=== PATIENT | male | born 1985 | race Caucasian/White ===

== ENCOUNTER 2019-05-30 15:45 | Emergency (ER) | payer SELFPAY ==
--- NOTE | ~2019-05-30 | XR_ITS ---
XR chest 1V portable DATE: 05/30/2019 16:34 INDICATION: Shortness of breath for one week TECHNIQUE: Portable AP chest on 05/30/2019 at 1630 hours COMPARISON: 09/10/2017 PA and lateral chest FINDINGS: Normal heart size. No hilar or mediastinal enlargement. No pulmonary infiltrate or consolid ation, pleural effusion or pulmonary vascular congestion or pneumothorax. There is some sclerosis associated with probable old right first rib fracture overlying the right lat eral apical area. IMPRESSION: No active cardiopulmonary disease Probable old right healed first rib fracture Reviewed, dictated and finalized at location A.
[2019-05-30 15:49] VITALS: BP 126/83; PULSE 82; RESP 17; TEMP 37.1; O2SAT 98
--- NOTE | 2019-05-30 16:14 | ED.GENADULT ---
HPI - General Adult General Chief complaint: Shortness of Breath/Dyspnea Stated complaint: N/V/D [id number] Time Seen by Provider: 05/30/19 15:59 Source: patient Mode of arrival: ambulatory Limitations: no limitations History of Present Illness HPI narrative: Patient is a 33-year-old male who presents to emergency department for evaluation of diarrhea and vomiting off and on for the last month patient notes that he has some rhinorrhea congestion denies any cough does note some dyspnea denies rectal bleeding or melena. Notes mild discomfort of the abdomen Related Data Home Medications Medication Instructions Recorded Confirmed No Home Medications 05/30/19 05/30/19 Allergies Allergy/AdvReac Type Severity Reaction Status Date / Time iohexol Allergy Difficulty Verified 05/30/19 16:31 [From contrast - CT, X-RAY] Breathing Review of Systems Review of Systems: All systems reviewed & are unremarkable except as noted in HPI and below PMFSH Social History Social History (Updated 05/30/19 @ 17:02 by Miguel A Miranda PA-C) Smoking status: Current every day smoker Exam Narrative: Exam Narrative: GENERAL: Well-appearing, well-nourished, and in no acute distress. HEAD: Normocephalic, atraumatic. EYES: PERRLA and EOMI. ENT: Nares clear, no rhinorrhea or epistaxis. Mucous membranes moist. Oropharynx without tonsillar hypertrophy exudate or other lesions. NECK: Supple. No adenopathy or masses. CHEST: Clear to auscultation. No respiratory distress. No wheezes rales or rhonchi HEART: Regular rate and rhythm. No murmur heard. Normal peripheral pulses. ABDOMEN: Soft, nontender, nondistended EXTREMITIES: Normal range of motion. No edema. SKIN: Warm, dry, no rash. NEURO: No focal deficits. Alert and oriented x3. Cranial nerves II through XII PSYCH: Normal mood and affect. Course Course Emergency Course: Patient in the room in no distress aware of case findings treatment plan and diagnosis agreeing to follow-up as directed or to return if symptoms worsen or concern Vital Signs Vital signs: Vital Signs Temperature 98.7 F 05/30/19 15:49 Pulse Rate 82 05/30/19 15:49 Respiratory Rate 17 05/30/19 15:49 Blood Pressure 126/83 05/30/19 15:49 Pulse Oximetry 98 05/30/19 15:49 Temperature 98.7 F 05/30/19 15:49 Pulse Rate 82 05/30/19 15:49 Respiratory Rate 17 05/30/19 15:49 Blood Pressure 126/83 05/30/19 15:49 Pulse Oximetry 98 05/30/19 15:49 Medical Decision Making MDM Narrative Medical decision making narrative: Patient in the room in no distress no high risk changes in the blood work or imaging normal vital signs felt appropriate for outpatient reevaluation agreeing to follow-up with primary care and GI for reevaluation of his elevated liver enzymes and abdominal issues Vital Signs Vital Signs: Vital Signs Temperature 98.7 F 05/30/19 15:49 Pulse Rate 82 05/30/19 15:49 Respiratory Rate 17 05/30/19 15:49 Blood Pressure 126/83 05/30/19 15:49 Pulse Oximetry 98 05/30/19 15:49 Temperature 98.7 F 05/30/19 15:49 Pulse Rate 82 05/30/19 15:49 Respiratory Rate 17 05/30/19 15:49 Blood Pressure 126/83 05/30/19 15:49 Pulse Oximetry 98 05/30/19 15:49 Discharge Plan Discharge Clinical Impression: Abdominal pain, Elevated liver enzymes Patient Disposition: Home, Self-Care Condition: Stable Instructions: Antibiotic Form, Abdominal Pain (ED) Additional Instructions: Follow-up with primary care and specialist in the next 7 days for reevaluation of your elevated liver enzymes and abdominal discomfort. Go to ER for worsening pain, vision changes, nausea/vomiting, fever/chills, weakness, chest pain, shortness of breath, numbness/tingling, slurred speech, difficulty walking, change in mental status etc. or any other concerns. Take any prescribed medications as directed. Prescriptions: No Action No Home Medications RF: 0
[2019-05-30 16:23] LABS: Basophils Percent Auto 0.2 % (0.2-1.2); Eosinophils Absolute Auto 0.1 K/mm3 (0-0.3); Eosinophils Percent Auto 0.7 % (0-4.4); Hematocrit 43.3 % (42.0-52.0); Hemoglobin 14.7 g/dL (14.0-18.0); Immature Granulocyte Absolute 0.02 K/mm3 (0.00-0.031); Immature Granulocyte Percent A 0.2 % (0-0.5); Lymphocytes Percent Auto 38.3 % (18.3-44.2); Mean Corpuscular HGB Conc 33.9 g/dl (32-36); Mean Corpuscular Hemoglobin 29.3 pg (26-34); Mean Corpuscular Volume 86.3 fl (80-100); Mean Platelet Volume 11.9 fl (7.4-10.4); Monocytes Absolute Auto 0.5 K/mm3 (0.1-0.6); Monocytes Percent Auto 5.9 % (2.6-8.5); Neutrophils Absolute Auto 4.6 K/mm3 (1.3-6.7); Neutrophils Percent Auto 54.7 % (45.5-73.1); Platelet Count Result 209 k/mm3 (150-375); Red Blood Count 5.02 M/mm3 (4.6-6.20); Red Cell Distribution Width 12.1 % (11.5-14.5); White Blood Count 8.4 K/mm3 (4.5-10.0)
[2019-05-30] MEDS: SODIUM CHLORIDE 0.9% IV 1,000 ML 999 ML IV CONT (16:34)
[2019-05-30] MEDS: ONDANSETRON INJ 4 MG/2 ML VIAL IV PUSH (16:34)
[2019-05-30 16:40] LABS: Alanine Aminotransferase 271 U/L (4-50); Albumin Level 4.6 g/dL (3.5-5.1); Alkaline Phosphatase 64 U/L (38-126); Aspartate Amino Transferase 128 U/L (17-59); Bilirubin,Total 0.7 mg/dL (0.2-1.3); Blood Urea Nitrogen 8 mg/dL (9-20); CRP < 0.5 mg/dL (<1.0); Calcium 9.2 mg/dL (8.4-10.2); Carbon Dioxide 25 mmol/L (22-30); Chloride 107 mmol/L (98-107); Estimated CRCL calculation 166 ml/min; Estimated Glomerular Filt Rate > 60; Glucose 98 mg/dL (75-110); Potassium 4.4 mmol/L (3.4-5.0); Sodium 141 mmol/L (137-145)
--- NOTE | 2019-05-30 17:01 | PC.NURSE ---
IVF continue. Pt states is feeling much better at present.
[2019-05-30 17:51] LABS: Hepatitis B Surface Antigen Negative (Negative)
[2019-05-30 17:57] LABS: HAV RESULT Negative (Negative); Hepatitis B Core IgM Result Negative (Negative)
[2019-05-30 18:47] LABS: Hepatitis C Virus Antibody Reactive (Negative)
[2019-06-04 19:49] LABS: Hepatitis C RNA, Quant PCR 7850000 IU/mL
== END 2019-05-30 17:25 | disposition home or self-care (01) ==
PROVIDERS: Emergency Medicine Emergency Medical Services; Emergency Provider Emergency Medicine
DX: R10.9 Unspecified abdominal pain (principal); R94.5 Abnormal results of liver function studies; F17.200 Nicotine dependence, unspecified, uncomplicated; R79.89 Other specified abnormal findings of blood chemistry
CPT/HCPCS: 36415; 71045; 80053; 80074; 85025; 86140; 87522; 96361; 96374; 99284; J2405; J7030

== ENCOUNTER 2019-06-12 15:23 | Observation (INO) | payer OTHER, SELFPAY ==
--- NOTE | ~2019-06-12 | XR_ITS ---
XR chest 1V portable DATE: 06/12/2019 16:24 INDICATION: Shortness of breath TECHNIQUE: Portable upright AP chest on 06/12/2019 at 1619 hours COMPARISON: 05/30/2019 portable AP chest FINDINGS: New patchy infiltrates are noted in the right mid and lower lung zones in particular and to a lesser extent left lower lung zone. These are new since 05/30/2019. Normal heart size. No pulmonary vascular congestion or pleural effusion or pneumothorax. No hilar or mediastinal enlargement is evident. IMPRESSION: New patchy bilateral pulmonary infiltrates, right greater than left, since 05/30/2019 Reviewed, dictated and finalized at location A. IMPRESSION: New patchy bilateral pulmonary infiltrates, right greater than left , since 05/30/2019
[2019-06-12 15:30] VITALS: BP 142/97; RESP 16; O2SAT 98
[2019-06-12 15:41] VITALS: BP 142/97; PULSE 106; RESP 20; TEMP 36.8; O2SAT 98; O2SAT 99
--- NOTE | 2019-06-12 16:04 | ED.GENADULT ---
HPI - General Adult General Chief complaint: Upper Respiratory Infection Stated complaint: SOB, COLD SYMPTOMS Time Seen by Provider: 06/12/19 15:58 History of Present Illness HPI narrative: Patient is a 33 y/o male complaining of mild cough and SOB for 2-3 day. He states that he coughs up some yellowish and reddish phlegm. He took some cough medicine which did not help. He has some chest pain with cough. He denies any fever currently. He states that he had fever, vomiting and diarrhea 2 weeks. However, all those symptoms have resolved. He states that his was exposed to someone with COVID at work. Related Data Home Medications Medication Instructions Recorded Confirmed No Home Medications 06/12/19 06/12/19 Allergies Allergy/AdvReac Type Severity Reaction Status Date / Time iohexol Allergy Difficulty Verified 06/12/19 15:44 [From contrast - CT, X-RAY] Breathing Review of Systems Constitutional: Constitutional: Denies chills, Denies fever(s), Denies headache(s) and Denies weakness Eyes: Eyes: Denies blurry vision ENT: Denies headache(s) and Denies neck pain Cardiovascular: Cardiovascular: Denies chest pain and Denies dyspnea Respiratory: Respiratory: Reports cough, Reports hemoptysis and Reports dyspnea Gastrointestinal: Gastrointestinal: Denies abdominal pain, Denies diarrhea, Denies nausea and Denies vomiting Genitourinary: Genitourinary: Denies hematuria and Denies dysuria Musculoskeletal: Musculoskeletal: Denies back pain and Denies neck pain Neurologic: Denies headache(s) and Denies weakness [facility] Social History Social History Smoking status: Current every day smoker Exam Const: General: no acute distress and well developed Orientation/consciousness: oriented to person, oriented to place, oriented to time and patient oriented x3 HENMT: Head: normocephalic Ears: external ears normal General nose exam: Normal external nose present Eyes: General: appearance normal, both eyes and all related structures Conjunctivae: conjunctivae normal Neck: Neck: normal visual inspection and full ROM Chest: Chest palpation & inspection: normal inspection of the chest and no tenderness Resp: Effort & Inspection: normal respiratory effort Auscultation: clear to auscultation bilaterally Cardio: Rate: tachycardic Rhythm: regular rhythm GI: GI Palp: No abdominal tenderness and Yes Soft to palpation Skin: General skin exam: normal color and turgor normal Neuro: General: oriented to person, oriented to place, oriented to time and patient oriented x3 Cognition (Neuro): normal cognition Extrem: General: normal to inspection, full ROM and no pedal edema Psych: Appearance: grossly normal Mental Status: mental status grossly normal Affect: normal affect Course Consultations Consultation #1: Discussed with Alicia, who agrees to admit to Dr. Moreira Date: 06/12/19 Time: 17:00 Vital Signs Vital signs: Vital Signs Temperature 36.8 C 06/12/19 15:41 Pulse Rate 106 H 06/12/19 15:41 Respiratory Rate 06/12/19 15:41 Blood Pressure 142/97 H 06/12/19 15:41 Pulse Oximetry 99 06/12/19 15:41 Temperature 36.8 C 06/12/19 15:41 Pulse Rate 106 H 06/12/19 15:41 Respiratory Rate 06/12/19 15:41 Blood Pressure 142/97 H 06/12/19 15:41 Pulse Oximetry 98 06/12/19 15:41 Medical Decision Making MDM Narrative Medical decision making narrative: IVF not given for sepsis due to concern for COVID Vital Signs Vital Signs: Vital Signs Temperature 36.8 C 06/12/19 15:41 Pulse Rate 106 H 06/12/19 15:41 Respiratory Rate 06/12/19 15:41 Blood Pressure 142/97 H 06/12/19 15:41 Pulse Oximetry 99 06/12/19 15:41 Temperature 36.8 C 06/12/19 15:41 Pulse Rate 106 H 06/12/19 15:41 Respiratory Rate 06/12/19 15:41 Blood Pressure 142/97 H 06/12/19 15:41 Pulse Oximetry 98 06/12/19 15:41 Lab Data Result d
[2019-06-12 16:21] LABS: Hematocrit 40.3 % (42.0-52.0); Hemoglobin 13.7 g/dL (14.0-18.0); Mean Corpuscular Hemoglobin 29.3 pg (26-34); Mean Corpuscular Volume 86.1 fl (80-100); Mean Platelet Volume 11.7 fl (7.4-10.4); Platelet Count Result 158 k/mm3 (150-375); Red Blood Count 4.68 M/mm3 (4.6-6.20); Red Cell Distribution Width 12.2 % (11.5-14.5)
[2019-06-12 16:30] VITALS: BP 132/79; PULSE 102; RESP 16; O2SAT 99
[2019-06-12 16:34] LABS: Alanine Aminotransferase 430 U/L (4-50); Albumin Level 3.9 g/dL (3.5-5.1); Alkaline Phosphatase 62 U/L (38-126); Aspartate Amino Transferase 418 U/L (17-59); Bilirubin,Total 0.9 mg/dL (0.2-1.3); Blood Urea Nitrogen 14 mg/dL (9-20); Calcium 8.5 mg/dL (8.4-10.2); Carbon Dioxide 30 mmol/L (22-30); Chloride 97 mmol/L (98-107); Estimated Glomerular Filt Rate > 60; Glucose 106 mg/dL (75-110); Potassium 3.4 mmol/L (3.4-5.0); Sodium 135 mmol/L (137-145)
--- NOTE | 2019-06-12 16:43 | PC.NURSE ---
Called to add on LDH, C-reactive protein, and Ferritin.
[2019-06-12 16:44] LABS: Band Neutrophils Percent 6 % (0-6); Eosinophils Absolute Manual 0.23 K/mm3 (0.02-0.5); Eosinophils Percent Manual 1 % (0-4); Lymphocytes Absolute Manual 5.98 K/mm3 (1.1-4.5); Monocytes Absolute Manual 1.15 K/mm3 (0.1-0.90); Monocytes Percent Manual 5 % (3-9); Neutrophils Absolute Manual 15.64 K/mm3 (1.3-6.7); Neutrophils Percent Manual 62 % (46-73); Platelet Estimate Adequate (Adequate); Total Cells Counted 100
[2019-06-12 16:57] LABS: CRP 5.9 mg/dL (<1.0); Lactate Dehydrogenase 1134 U/L (313-618)
--- NOTE | 2019-06-12 18:23 | PC.NURSE ---
lactic acid drawn and sent.
[2019-06-12 18:38] LABS: Lactic Acid Reflex 2.2 mmol/L (0.7-2.1)
[2019-06-12 18:59] VITALS: PULSE 105; RESP 16; O2SAT 99
--- NOTE | 2019-06-12 19:01 | ADMGEN ---
This patient, Brian Akhtar, was admitted to [facility] Surg Room 329-01. Patient/family oriented to hospital policies and general routines including ID bracelet, bed and alarms, visiting hours, pain management, procedures, bathroom and other care routines, personal items, smoking policy, room service/diet, and visiting hours. Valuables list has been completed. Information on how to activate the Rapid Response Team has been discussed. Patient/Family are encouraged to report perceived risks to care and to ask questions if they do not understand what they are told or what they should do.
[2019-06-12 19:25] VITALS: BMI 27.1
[2019-06-12 20:00] VITALS: O2SAT 98
[2019-06-12] MEDS: ACETAMINOPHEN 500 MG TABLET 650 MG PO (20:05)
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
[2019-06-12 21:24] LABS: Reflex Lactic Acid Yes or No Add Lactic
[2019-06-12 22:00] VITALS: BP 144/74; PULSE 89; RESP 18; TEMP 37.1; O2SAT 99
[2019-06-12 22:16] LABS: Lactic Acid 1.6 mmol/L (0.7-2.1)
[2019-06-13] VITALS (7 sets, daily range): BP systolic 127–146; BP diastolic 71–78; PULSE 82–103; RESP 16–20; TEMP 36.2–37.3; O2SAT 94–100; BMI 27.1
[2019-06-13 01:47] LABS: Influenza Control Positive
[2019-06-13 06:57] LABS: Basophils Percent Auto 0.3 % (0.2-1.2); Eosinophils Absolute Auto 0.3 K/mm3 (0-0.3); Eosinophils Percent Auto 1.7 % (0-4.4); Hematocrit 40.5 % (42.0-52.0); Hemoglobin 13.6 g/dL (14.0-18.0); Immature Granulocyte Absolute 0.08 K/mm3 (0.00-0.031); Immature Granulocyte Percent A 0.5 % (0-0.5); Lymphocytes Absolute Auto 2.71 K/mm3 (0.9-3.2); Lymphocytes Percent Auto 17.9 % (18.3-44.2); Mean Corpuscular HGB Conc 33.6 g/dl (32-36); Mean Corpuscular Hemoglobin 28.9 pg (26-34); Mean Corpuscular Volume 86.2 fl (80-100); Mean Platelet Volume 10.2 fl (7.4-10.4); Monocytes Absolute Auto 1.3 K/mm3 (0.1-0.6); Monocytes Percent Auto 8.5 % (2.6-8.5); Neutrophils Absolute Auto 10.8 K/mm3 (1.3-6.7); Neutrophils Percent Auto 71.1 % (45.5-73.1); Platelet Count Result 221 k/mm3 (150-375); Red Cell Distribution Width 12.1 % (11.5-14.5); White Blood Count 15.1 K/mm3 (4.5-10.0)
[2019-06-13 07:18] LABS: Blood Urea Nitrogen 8 mg/dL (9-20); Calcium 8.7 mg/dL (8.4-10.2); Carbon Dioxide 31 mmol/L (22-30); Chloride 101 mmol/L (98-107); Estimated CRCL calculation 128 ml/min; Estimated Glomerular Filt Rate > 60; Glucose 115 mg/dL (75-110); Potassium 3.5 mmol/L (3.4-5.0); Sodium 136 mmol/L (137-145)
[2019-06-13] MEDS: ACETAMINOPHEN 325 MG TABLET 650 MG PO ×2 (08:33→18:35)
--- NOTE | 2019-06-13 12:02 | PM.IMPN ---
Progress Note: A&P Assessment and Plan (1) Pneumonia: Qualifiers: Laterality: bilateral Lung location: unspecified part of lung Pneumonia type: due to unspecified organism Qualified Code(s): J18.9 - Pneumonia, unspecified organism Code(s): J18.9 - Pneumonia, unspecified organism Status: Acute Assessment and Plan: Bilateral pneumonia concerning for viral or bacterial pneumonia. Patient is afebrile but endorses cough. COVID-19 testing is pending. Legionella and pneumococcal urine antigen pending. Continue antibiotic therapy with Rocephin and azithromycin. Oxygen prn with goal O2 >92% Acetaminophen prn fever Begin Mucinex for cough Trend acute phase reactants Blood cultures are pending (2) Sepsis: Qualifiers: Sepsis acute organ dysfunction status: unspecified Sepsis type: sepsis due to unspecified organism Qualified Code(s): A41.9 - Sepsis, unspecified organism Code(s): A41.9 - Sepsis, unspecified organism Status: Acute Assessment and Plan: Patient initially had some mild lactic acidosis. His lactic acidosis has resolved with antibiotic therapy. Patient appears to be relatively euvolemic. Will hold off on IV fluid administration in the setting possible COVID-19 infection. Continue to monitor vitals (3) Opioid abuse: Code(s): F11.10 - Opioid abuse, uncomplicated Status: Acute Assessment and Plan: Patient recently used IV Fentanyl and now complains of several nonspecific withdrawal-like symptoms, however these symptoms could very well be related to his respiratory illness. COWS score is 8 indicating mild withdrawal. Zofran prn nausea Patient reports hot flashes are his most concerning symptom. May give ice packs for symptomatic relief. Continue to monitor symptoms and vital signs Subjective Date/time seen: 06/13/19 12:02 Interval history: Date of service: 06/13/19 Mr. Akhtar reports he is not feeling well today. He endorses cough and shortness of breath. He denies chest pain. His COVID test is pending. He also has been experiencing nausea and vomiting today. He tells me he is concerned he is in withdrawal. He used IV fentanyl daily from 06/07-06/10/19. He has not used fentanyl outside that window. He tells me his eyes are watery, he is yawning, he is sweating and having hot flashes. He feels restless. He denies body aches. He denies abdominal pain, fever, chills, dizziness, or lightheadedness. He has had decreased appetite. He reports he is urinating without difficulty. He endorses constipation. He is having trouble sleeping. Review of Systems Review of Systems: Narrative: A 12 point review of systems was performed with pertinent positives and negatives as per HPI. Exam Narrative: Exam Narrative: Mr. Akhtar is examined alone today. He is a well nourished 33 year old male who is lying supine in bed. He appears comfortable and is NARD. HR 95. RR 18. BP 133/74. T 98.5. Neuro: awake, alert and oriented x3, speech clear, no focal neuro deficits noted HEENMT: normocephalic, atraumatic, EOMI, PERRL, sclerae anicteric, moist oral mucosa, normal oropharynx Neck: supple, no lymphadenopathy Respiratory: post-expiratory wheezes bilaterally, normal respiratory effort without accessory muscle use, 97% on room air. Cardio: regular rate, regular rhythm, normal S1 and S2 Abdomen: normal to inspection, nondistended, normoactive bowel sounds, soft, nontender Extremities: BLE without edema, erythema, or pain to palpation, dorsal pedis pulses palpable bilaterally Skin: smooth skin, no rashes or lesions, warm and dry Psych: normal mood and affect Objective Data Vital Signs Vital Signs: Vital Signs - 24 hr 06/12/19 15:30 06/12/19 15:41 06/12/19 16:30 Temperature 98.3 F Pulse Rate 106 H 102 H Respiratory Rate 16 20 16 Blood Pressure 142/97 H 142/97 H 132/79 Pulse Oximetry 98 98 99 06/12/19 18:59 06/12/19 20:00 06/12/19
[2019-06-13] MEDS: PROMETHAZINE HCL 25 MG/ML AMPUL 12.5 MG IV PUSH ×2 (12:07→19:34)
[2019-06-13 15:09] LABS: SARS-CoV-2 RNA PCR Negative
[2019-06-13] MEDS: ONDANSETRON INJ 4 MG/2 ML VIAL IV PUSH (16:16)
--- NOTE | 2019-06-13 21:06 | ECG_ITS ---
Measurements Intervals [place] Rate: 67 P: 52 NM: 140 QRS: 52 QRSD: 89 T: 39 QT: 400 QTc: 424 Interpretive Statements SINUS RHYTHM NORMAL ECG Electronically Signed On 06-13-2019 7:03:46 CDT by Jose Mayen D.O.
[2019-06-13] MEDS: AZITHROMYCIN 250 MG TABLET 500 MG PO (21:58)
[2019-06-14 02:00] VITALS: BP 132/67; PULSE 90; RESP 18; TEMP 36.6; O2SAT 99
[2019-06-14 06:00] VITALS: BP 145/72; PULSE 87; RESP 20; TEMP 36.7; O2SAT 98
[2019-06-14] MEDS: PROMETHAZINE HCL 25 MG/ML AMPUL 12.5 MG IV PUSH ×2 (06:07→11:52)
[2019-06-14 06:32] LABS: Basophils Percent Auto 0.3 % (0.2-1.2); Eosinophils Absolute Auto 0.3 K/mm3 (0-0.3); Eosinophils Percent Auto 2.7 % (0-4.4); Hematocrit 41.9 % (42.0-52.0); Immature Granulocyte Absolute 0.04 K/mm3 (0.00-0.031); Immature Granulocyte Percent A 0.4 % (0-0.5); Lymphocytes Absolute Auto 2.98 K/mm3 (0.9-3.2); Lymphocytes Percent Auto 28.1 % (18.3-44.2); Mean Corpuscular HGB Conc 33.4 g/dl (32-36); Mean Corpuscular Hemoglobin 29.1 pg (26-34); Mean Corpuscular Volume 87.1 fl (80-100); Mean Platelet Volume 10.6 fl (7.4-10.4); Monocytes Absolute Auto 0.8 K/mm3 (0.1-0.6); Monocytes Percent Auto 7.8 % (2.6-8.5); Neutrophils Absolute Auto 6.4 K/mm3 (1.3-6.7); Neutrophils Percent Auto 60.7 % (45.5-73.1); Platelet Count Result 246 k/mm3 (150-375); Red Blood Count 4.81 M/mm3 (4.6-6.20); Red Cell Distribution Width 12.3 % (11.5-14.5); White Blood Count 10.6 K/mm3 (4.5-10.0)
[2019-06-14 06:49] LABS: Alanine Aminotransferase 367 U/L (4-50); Albumin Level 3.9 g/dL (3.5-5.1); Alkaline Phosphatase 60 U/L (38-126); Aspartate Amino Transferase 194 U/L (17-59); Bilirubin,Total 0.7 mg/dL (0.2-1.3); Blood Urea Nitrogen 7 mg/dL (9-20); CRP 3.1 mg/dL (<1.0); Calcium 8.9 mg/dL (8.4-10.2); Carbon Dioxide 28 mmol/L (22-30); Chloride 104 mmol/L (98-107); Creatine Kinase 1583 U/L (55-170); Estimated CRCL calculation 145 ml/min; Estimated Glomerular Filt Rate > 60; Glucose 102 mg/dL (75-110); Lactate Dehydrogenase 679 U/L (313-618); Potassium 3.8 mmol/L (3.4-5.0); Sodium 139 mmol/L (137-145)
[2019-06-14 10:00] VITALS: BP 145/72; PULSE 93; RESP 22; TEMP 36.8; O2SAT 99
[2019-06-14] MEDS: AZITHROMYCIN 250 MG TABLET 500 MG PO (14:05)
[2019-06-14 18:10] LABS: Pneumococcal Antigen Urine Not Detected (Not Detected)
[2019-06-15 17:31] LABS: Legionella pneumophila Ag Ur Not Detected (Not Detected)
--- NOTE | 2019-06-15 17:54 | PM.DS ---
DS: Diagnosis Admitting Diagnosis Admitting Diagnosis: Pneumonia, unspecified organism Discharge Diagnosis (1) Pneumonia: Qualifiers: Laterality: bilateral Lung location: unspecified part of lung Pneumonia type: due to unspecified organism Qualified Code(s): J18.9 - Pneumonia, unspecified organism Code(s): J18.9 - Pneumonia, unspecified organism Status: Acute Assessment and Plan: Bilateral pneumonia concerning for viral or bacterial pneumonia. Patient is afebrile but endorses cough. COVID-19 testing was negative Legionella and pneumococcal urine antigen were negative. Continued antibiotic therapy with Rocephin and azithromycin. For 3 days treatment ill finish 5 day course with 750 p.o. for 2 days of levofloxacin Blood cultures were negative and O2 sats remained normal (2) Sepsis: Qualifiers: Sepsis acute organ dysfunction status: unspecified Sepsis type: sepsis due to unspecified organism Qualified Code(s): A41.9 - Sepsis, unspecified organism Code(s): A41.9 - Sepsis, unspecified organism Status: Acute Assessment and Plan: Patient initially had some mild lactic acidosis. His lactic acidosis resolved with antibiotic therapy with cautious use of IV fluids because initially thought might be COVID.. Patient appears to be relatively euvolemic. (3) Opioid abuse: Code(s): F11.10 - Opioid abuse, uncomplicated Status: Acute Assessment and Plan: Patient recently used IV Fentanyl and now complains of several nonspecific withdrawal-like symptoms, however these symptoms could very well be related to his respiratory illness. COWS score is 8 indicating mild withdrawal. Zofran prn nausea At time of discharge and had no signs or symptoms of withdrawal (4) Hepatitis C: Code(s): B19.20 - Unspecified viral hepatitis C without hepatic coma Status: Acute Assessment and Plan: Patient known to have hepatitis-C. LFTs are mildly elevated and hep C reactive with significant viral load. 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 COVID testing, urine antigens, blood cultures, all are negative. Responded rapidly to ceftriaxone and azithromycin which completed 3 day course. Will complete 5 day total with 750 mg daily of levofloxacin for 2 more days Time Spent with Patient Time attestation: Total time spent providing and/or coordinating discharge services: 35 minutes Exam Narrative: Exam Narrative: Condition on discharge Blood pressure 142/72 pulse is 92 saturating 98% on room air afebrile Lungs clear CV regular rate rhythm Abdomen is soft nontender Extremities without edema distal pulses 1 to 2+ Neuro alert oriented no focal deficits and cooperative DS: Data Data Completed and Pending Labs on day of discharge: Labs from last 24 hours 06/13/19 04:19 Ur L.pneumophila Ag Not detected Urine Pneumococcal Ag Not detected Preliminary micro results at discharge 06/12/19 17:38 Blood Culture - Preliminary Blood 06/12/19 17:38 Blood Culture - Preliminary Blood Discharge Plan Discharge Attending physician on discharge: Arley Strange Consulting providers: Nikkie Moreira Discharging Clinician: Arley Strange Patient Disposition: Home, Self-Care Activity: as tolerated Diet: regular Patient Instructions: Antibiotic Form, How to Stop Smoking (DC) Stand Alone Forms: General Discharge Information Follow-up/Referrals: Nikkie Moreira MD [Physician] - 2 Weeks Discharge Medications: New levofloxacin [Levaquin] 750 mg tablet 750 mg PO DAILY Qty: 2 RF: 0 No Action No Home Medications RF: 0 Date of admission: 06/12/19 17:16 Primary Care Provider: PHYSICIAN,PLASTICS PATTERNMAKER Admitting Provider: LISSA Moreira
== END 2019-06-14 14:15 | disposition home or self-care (01) ==
LOC: ANHED 17:18 → ANH3MEDSUR 17:48
PROVIDERS: Internal Medicine; Admitting Provider Hospitalist; Emergency Provider Emergency Medicine; Visit Provider Physician Assistant
DX: A41.9 Sepsis, unspecified organism (principal); J18.9 Pneumonia, unspecified organism; E87.2 Acidosis; F11.10 Opioid abuse, uncomplicated; B19.20 Unspecified viral hepatitis C without hepatic coma; F17.200 Nicotine dependence, unspecified, uncomplicated; Z20.828 Contact with and (suspected) exposure to other viral communicable diseases
CPT/HCPCS: 36415; 71045; 80048; 80053; 82550; 82728; 83605; 83615; 85025; 86140; 87040; 87449; 87635; 87804; 87899; 93005; 96365; 96366; 96367; 96374; 96375; 96376; 99285; A9270; C9803; G0378; G0379; J0456; J0696; J1650; J2405; J2550; U0003

== ENCOUNTER 2019-10-02 09:12 | Emergency (ER) | payer SELFPAY ==
--- NOTE | ~2019-10-02 | XR_ITS ---
EXAMINATION: XR chest 2V DATE: 10/02/2019 10:00 INDICATION: Mid chest pain. TECHNIQUE: Frontal and lateral views of the chest were obtained. COMPARISON: Chest single view 06/12/2019 FINDINGS: The chest demonstrates clear lungs without pneumonia, pleural effusion, or pneumothorax. Th e heart size is normal. IMPRESSION: 1. No acute cardiopulmonary disease. Reviewed, dictated and finalized at location B.
[2019-10-02 09:11] VITALS: BP 157/105; PULSE 108; RESP 18; TEMP 36.8; O2SAT 100
[2019-10-02 09:14] VITALS: PULSE 108
--- NOTE | 2019-10-02 09:17 | ED.CHESTPAIN ---
HPI - Chest Pain General Chief Complaint: Chest Pain Stated Complaint: CP Time Seen by Provider: 10/02/19 09:17 Source: patient Mode of arrival: EMS Limitations: no limitations History of Present Illness HPI narrative: Patient is a 34-year-old male with a history of hypertension who presented for evaluation of chest pain via EMS. Patient reportedly experience chest pain and palpitations for approximately 2 to 4 minutes on Tuesday, and then 2 to 4 minutes this morning around 5 in the morning. Patient states the pain went away on its own, but was described as sharp, stabbing in nature with radiation to the left shoulder and left jaw. Patient states the pain then recurred around 8:30 AM this morning, prompting the patient to take an ambulance to the emergency department for the pain. Patient states that the pain resolved once the ambulance arrived. Patient currently denies any chest pain or symptoms in the room. He reports alcohol use, methamphetamine use, and heroin use last night into early this morning. Patient has been noncompliant with his antihypertensives. He has a positive family history of coronary artery disease, heart attack in his father at age 50 resulting in . Patient denies cigarette use. Related Data Allergies Allergy/AdvReac Type Severity Reaction Status Date / Time Contrast Media Allergy Severe Anaphylactic Uncoded 09/10/17 20:07 Shock Review of Systems Review of Systems: Narrative: CONSTITUTIONAL: Denies fever CARDIOVASCULAR: Denies current chest pain RESPIRATORY: Denies cough or dyspnea. GASTROINTESTINAL: Denies abdominal pain, nausea or vomiting SKIN: Denies rash MUSCULOSKELETAL: Denies back pain NEUROLOGIC: Denies headache PMF Past Medical History Medical History (Updated 10/02/19 @ 10:20 by Madeline Purvis MD) Hypertension Substance abuse Social History Social History (Updated 10/02/19 @ 09:45 by Madeline Purvis MD) Smoking status: Never smoker Alcohol intake: current Substance use: current Substance use type: marijuana, heroin and amphetamines Gender identity (if verbalized by the patient): Male Exam Narrative: Exam Narrative: GENERAL: Awake, alert, conversant HEAD: Normocephalic, atraumatic. EYES: PERRLA and EOMI. ENT: Nares clear, no rhinorrhea or epistaxis. Mucous membranes moist. NECK: Supple. CHEST: No respiratory distress, breathing even and non labored HEART: Regular rate, sinus rhythm, no chest wall tenderness, no murmurs ABDOMEN:Non distended, non tender EXTREMITIES: Normal range of motion. No edema. SKIN: Warm, dry, no rash. NEURO:No focal deficits. Alert and oriented x3 Course Vital Signs Vital signs: Vital Signs Temperature 36.8 C 10/02/19 09:11 Pulse Rate 108 H 10/02/19 09:11 Respiratory Rate 18 10/02/19 09:11 Blood Pressure 157/105 H 10/02/19 09:11 Pulse Oximetry 100 10/02/19 09:11 Temperature 36.8 C 10/02/19 09:11 Pulse Rate 108 H 10/02/19 09:14 Respiratory Rate 18 10/02/19 09:11 Blood Pressure 157/105 H 10/02/19 09:11 Pulse Oximetry 100 10/02/19 09:11 MDM - Chest Pain MDM Narrative Medical decision making narrative: Patient's EKG and labs are without significant high risk changes. Cardiac risk factors reviewed. Patient is felt low risk for ACS and reasonable for further risk stratification testing as an outpatient. Pain was not sudden or maximal or onset without tearing or ripping quality. No other signs or symptoms to suggest aortic dissection. A low risk well's criteria is noted, PE is felt to be unlikely. No pneumonia seen on evaluation today. Initial troponin is negative. Wanted to obtain repeat troponin, however the patient left the emergency department AGAINST MEDICAL ADVICE. It was explained to him that this could result in or deterioration. Patient has capacity to make this decision. Differential Diagnosis Differential diagnosis: Likely stable angina, unstable angina pectoris and atypical c
--- NOTE | 2019-10-02 09:26 | ECG_ITS ---
Measurements Intervals [place] Rate: 97 P: 66 [place]: 153 QRS: 44 QRSD: 89 T: 43 QT: 336 QTc: 428 Interpretive Statements SINUS RHYTHM ATRIAL PREMATURE COMPLEX BORDERLINE ECG Electronically Signed On 10-02-2019 9:31:29 CDT by Jose Mayen D.O.
[2019-10-02 09:29] LABS: Basophils Percent Auto 0.1 % (0.2-1.2); Eosinophils Absolute Auto 0.1 K/mm3 (0-0.3); Eosinophils Percent Auto 1.1 % (0-4.4); Hematocrit 39.6 % (42.0-52.0); Hemoglobin 13.6 g/dL (14.0-18.0); Immature Granulocyte Absolute 0.02 K/mm3 (0.00-0.031); Immature Granulocyte Percent A 0.3 % (0-0.5); Lymphocytes Absolute Auto 3.34 K/mm3 (0.9-3.2); Lymphocytes Percent Auto 46.1 % (18.3-44.2); Mean Corpuscular HGB Conc 34.3 g/dl (32-36); Mean Corpuscular Hemoglobin 29.3 pg (26-34); Mean Corpuscular Volume 85.3 fl (80-100); Monocytes Absolute Auto 0.4 K/mm3 (0.1-0.6); Monocytes Percent Auto 6.1 % (2.6-8.5); Neutrophils Absolute Auto 3.4 K/mm3 (1.3-6.7); Neutrophils Percent Auto 46.3 % (45.5-73.1); Platelet Count Result 249 k/mm3 (150-375); Red Blood Count 4.64 M/mm3 (4.6-6.20); Red Cell Distribution Width 11.9 % (11.5-14.5); White Blood Count 7.3 K/mm3 (4.5-10.0)
[2019-10-02 09:40] LABS: Prothrombin Time 13.3 Seconds (11.1-14.7)
[2019-10-02 09:41] LABS: Partial Thromboplastin Time 33.1 SECONDS (22.3-36.8)
[2019-10-02 09:43] LABS: Alanine Aminotransferase 314 U/L (4-50); Albumin Level 4.3 g/dL (3.5-5.1); Alkaline Phosphatase 83 U/L (38-126); Anion Gap 6 mmol/L (8-16); Aspartate Amino Transferase 150 U/L (17-59); Bilirubin,Total 0.4 mg/dL (0.2-1.3); Blood Urea Nitrogen 12 mg/dL (9-20); Carbon Dioxide 30 mmol/L (22-30); Chloride 101 mmol/L (98-107); Estimated Glomerular Filt Rate > 60; Glucose 111 mg/dL (75-110); Lipase 17 U/L (23-300); Potassium 3.7 mmol/L (3.4-5.0); Sodium 137 mmol/L (137-145)
[2019-10-02 09:54] LABS: Troponin I < 0.012 ng/mL (0.000-0.034)
[2019-10-02 10:13] LABS: Add Urine Microscopic? NO; Appearance Urine Clear (Clear); Bilirubin Urine Negative (Negative); Blood Urine Negative (Negative); Color Urine Colorless (Yellow); Glucose Urine UA Negative (Negative); Ketones Urine Negative (Negative); Leukocyte Esterase Ur Negative LEU/UL (Negative); Nitrate Urine Negative (Negative); Protein Urine Negative (Negative); Specific Grav Ur 1.006 (1.001-1.035); Urobilinogen Urine Negative mg/dL (<2.0)
[2019-10-02 10:27] LABS: Amphetamine Screen Urine Positive (Negative); Barbiturate Screen Urine Negative (Negative); Benzodiazepines Screen Urine Negative (Negative); Cannabinoid Screen Urine Negative (Negative); Cocaine Screen Urine Negative (Negative); Methadone Screen Urine Negative (Negative); Opiate Screen Urine Negative (Negative); Phencyclidine Screen Urine Negative (Negative)
== END 2019-10-02 10:16 | disposition left against medical advice (07) ==
PROVIDERS: Emergency Provider Emergency Medicine
DX: R07.89 Other chest pain (principal); I10 Essential (primary) hypertension; I49.1 Atrial premature depolarization
CPT/HCPCS: 36415; 71046; 80053; 80307; 81003; 83690; 84484; 85025; 85610; 85730; 93005; 96374; 96375; 99284

== ENCOUNTER 2021-09-18 16:45 | Emergency (ER) | payer SELFPAY ==
--- NOTE | ~2021-09-18 | XR_ITS ---
EXAMINATION: XR chest 2V 09/18/2021 17:44 INDICATION: Left chest pain PROCEDURE: 2 view chest COMPARISON: Comparison to multiple prior studies sequentially, with oldest reviewed study dated 09/10. FINDINGS: There is right perihilar atelectasis. No focal pneumonia, edema, pleural effusion or pneumo thorax. The cardiomediastinal silhouette is within normal limits. There are no pleural effusions. T here is no pneumothorax suspected. IMPRESSION: 1: Right perihilar atelectasis. Reviewed, dictated and finalized at location A.
--- NOTE | 2021-09-18 16:52 | ECG_ITS ---
Measurements Intervals [place] Rate: 93 P: 52 [place]: 165 QRS: 24 QRSD: 90 T: 27 QT: 337 QTc: 420 Interpretive Statements SINUS RHYTHM DELAYED PRECORDIAL R/S TRANSITION BORDERLINE ECG Electronically Signed On 09-18-2021 17:00:11 CDT by Jose Mayen D.O.
[2021-09-18 17:06] VITALS: BP 153/91; PULSE 94; RESP 16; TEMP 36.7; O2SAT 98
[2021-09-18 17:11] LABS: Basophils Percent Auto 0.3 % (0.2-1.2); Eosinophils Absolute Auto 0.1 K/mm3 (0-0.3); Eosinophils Percent Auto 1.5 % (0-4.4); Hematocrit 36.3 % (42.0-52.0); Hemoglobin 11.9 g/dL (14.0-18.0); Immature Granulocyte Absolute 0.01 K/mm3 (0.00-0.031); Immature Granulocyte Percent A 0.2 % (0-0.5); Immature Platelet Fraction Pct 4.9 % (0.9-11.2); Lymphocytes Absolute Auto 2.85 K/mm3 (0.9-3.2); Lymphocytes Percent Auto 42.9 % (18.3-44.2); Mean Corpuscular HGB Conc 32.8 g/dl (32-36); Mean Corpuscular Hemoglobin 29.2 pg (26-34); Mean Corpuscular Volume 89.2 fl (80-100); Mean Platelet Volume 10.7 fl (7.4-10.4); Monocytes Absolute Auto 0.5 K/mm3 (0.1-0.6); Monocytes Percent Auto 7.1 % (2.6-8.5); Neutrophils Absolute Auto 3.2 K/mm3 (1.3-6.7); Platelet Count Result 134 k/mm3 (150-375); Red Blood Count 4.07 M/mm3 (4.6-6.20); Red Cell Distribution Width 12.8 % (11.5-14.5); White Blood Count 6.6 K/mm3 (4.5-10.0)
[2021-09-18 17:16] LABS: Alanine Aminotransferase 208 U/L (6-50); Alkaline Phosphatase 162 U/L (38-126); Anion Gap 12 mmol/L (8-16); Aspartate Amino Transferase 126 U/L (17-59); Bilirubin,Total 0.5 mg/dL (0.2-1.3); Blood Urea Nitrogen 14 mg/dL (9-20); Calcium 8.6 mg/dL (8.4-10.2); Carbon Dioxide 24 mmol/L (22-30); Chloride 106 mmol/L (98-107); Estimated CRCL calculation 124 ml/min; Estimated Glomerular Filt Rate > 60; Glucose 106 mg/dL (65-110); Lipase 19 U/L (23-300); Potassium 4.3 mmol/L (3.4-5.0); Sodium 142 mmol/L (137-145)
[2021-09-18 17:17] LABS: INR 1.2; Prothrombin Time 14.8 Seconds (11.1-14.7)
[2021-09-18 17:18] LABS: Partial Thromboplastin Time 36.5 SECONDS (22.3-36.8)
[2021-09-18 17:28] LABS: Troponin I < 0.012 ng/mL (0.000-0.034)
--- NOTE | 2021-09-18 17:33 | ECG_ITS ---
Measurements Intervals [place] Rate: 87 P: 56 NM: 166 QRS: 27 QRSD: 93 T: 30 QT: 360 QTc: 434 Interpretive Statements SINUS RHYTHM COMPARED TO ECG 09/18/2021 16:51:23 NO SIGNIFICANT CHANGES Electronically Signed On 09-24-2021 10:18:10 CDT by Ashleigh Jimenez MD
[2021-09-18 17:34] VITALS: BP 149/92; PULSE 89; O2SAT 100
--- NOTE | 2021-09-18 18:15 | PC.NURSE ---
pt left waiting room and reports that pain has resolved and will take his cardiac medication that he forgot to take over the last week. Instructed patient to return if chest pain worsens or returns. amb d/c with .
== END 2021-09-18 18:15 | disposition left against medical advice (07) ==
LOC: ANHED 19:38
PROVIDERS: Emergency Provider Emergency Medicine; PCP Nurse Practitioner
DX: R07.9 Chest pain, unspecified (principal)
CPT/HCPCS: 36415; 71046; 80053; 83690; 84484; 85025; 85055; 85610; 85730; 93005; 99199

== ENCOUNTER → 2022-02-24 13:11 | Outpatient (CLI) | payer OTHER, SELFPAY ==
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
== END ==
DX: M54.50 Low back pain, unspecified (principal)
CPT/HCPCS: 72100

== ENCOUNTER 2022-04-08 12:20 | Emergency (ER) | payer OTHER, SELFPAY ==
[2022-04-08 13:01] VITALS: BP 122/71; PULSE 87; RESP 16; TEMP 36.4; O2SAT 99
--- NOTE | 2022-04-08 13:32 | ED.URI ---
HPI - URI/Sore Throat General Chief Complaint: Upper Respiratory Infection Stated Complaint: uri Time Seen by Provider: 04/08/22 13:32 Source: patient Mode of arrival: ambulatory Limitations: no limitations History of Present Illness HPI Narrative: 36-year-old male presents with complaint of cough, nasal congestion, mild sore throat, fatigue, body aches for 2 days. Patient tried to do a home COVID test and states he messed today . Denies chest pain and shortness of breath. Not taking any biro-nww-uortymd medications to treat his symptoms. Denies nausea vomiting diarrhea. Patient needs COVID test before he can return to work. All systems reviewed and negative except as noted above. Related Data Home Medications Medication Instructions Recorded Confirmed buprenorphine 300 mg/1.5 mL See Rx Instructions .Route .COMPLEX 04/08/22 04/08/22 solution,exten.rel.subcutaneous syringe (Sublocade) dextroamphetamine-amphetamine 20 20 mg PO DAILY 04/08/22 04/08/22 mg tablet methylphenidate HCl 27 mg 27 mg PO DAILY 04/08/22 04/08/22 tablet,extended release 24 hr olanzapine 10 mg tablet 10 mg PO DAILY 04/08/22 04/08/22 Allergies Allergy/AdvReac Type Severity Reaction Status Date / Time Contrast Media Allergy Severe Anaphylactic Uncoded 04/08/22 13:21 Shock Review of Systems Review of Systems: CONSTITUTIONAL: Denies fever, chills, or sweats. EYES: Denies visual changes, redness, or discharge. ENT: Reports rhinorrhea, congestion, sore throat. Denies otalgia. CARDIOVASCULAR: Denies chest pain, palpitations, or edema. RESPIRATORY: reports cough. Denies dyspnea. GASTROINTESTINAL: Denies abdominal pain, nausea, vomiting, or diarrhea. GENITOURINARY: Denies dysuria or hematuria. SKIN: Denies rash or itching. MUSCULOSKELETAL: Denies back pain, joint pain, or myalgia. NEUROLOGIC: Denies headache, numbness, or weakness. PSYCHIATRIC: Denies anxiety or depression. All other systems reviewed are negative, except as documented in HPI. [facility] Past Medical History Medical History (Updated 04/08/22 @ 13:41 by Sally Andres NP) Hypertension Substance abuse Social History Social History (Updated 10/02/19 @ 09:45 by Madeline Purvis MD) Smoking status: Never smoker Alcohol intake: current Substance use: current Substance use type: marijuana, heroin and amphetamines Gender identity (if verbalized by the patient): Male Comments At time of signature, agree with nursing past medical, surgical, social and family history. There is no relevant family history pertinent to the presenting complaint. Exam Narrative: GENERAL: This is a well-nourished, well-developed patient, in no apparent distress. HEAD: normocephalic, atraumatic. EYES: PERRL. Sclera clear/white. Vision is grossly intact. EARS: External ears normal, auditory canals clear and without drainage, TMs normal without perforation. Hearing grossly intact. NOSE: External nose normal with no obvious nasal discharge, nares without redness, no rhinorrhea. THROAT: Mucous membranes moist, posterior pharynx clear. NECK: Neck supple, non-tender without lymphadenopathy, masses or thyromegaly. CARDIOVASCULAR: Regular rate and rhythm without murmurs, gallops, or rubs. RESPIRATORY: Clear to auscultation. Breath sounds equal bilaterally. No wheezes, rales, or rhonchi. SKIN: warm, Dry, intact with no suspicious lesions or rash, good texture and turgor. NEURO: awake, alert, and oriented to person, place and time. There were no obvious focal neurologic abnormalities. EXTREMITIES: No joint tenderness, effusion, or edema noted. Course Course Level of Care: Express Care Visit Vital Signs Vital signs: Vital Signs Temperature 36.4 C L 04/08/22 13:01 Pulse Rate 87 04/08/22 13:01 Respiratory Rate 16 04/08/22 13:01 Blood Pressure 122/71 04/08/22 13:01 Pulse Oximetry 99 04/08/22 13:01 Oxygen Delivery Room Air 04/08/22 13:01 Temper
== END 2022-04-08 13:50 | disposition home or self-care (01) ==
PROVIDERS: Emergency Provider Nurse Practitioner Family
DX: J06.9 Acute upper respiratory infection, unspecified (principal); Z20.822 Contact with and (suspected) exposure to COVID-19; I10 Essential (primary) hypertension; F12.90 Cannabis use, unspecified, uncomplicated; F15.90 Other stimulant use, unspecified, uncomplicated; F11.90 Opioid use, unspecified, uncomplicated
CPT/HCPCS: 87426; 99213; C9803; G0463

== ENCOUNTER 2022-06-22 14:49 | Emergency (ER) | payer OTHER, SELFPAY ==
[2022-06-22] VITALS (7 sets, daily range): BP systolic 110–154; BP diastolic 67–88; PULSE 67–103; RESP 16–18; TEMP 36.6–36.7; O2SAT 96–99
--- NOTE | ~2022-06-22 | XR_ITS ---
EXAMINATION: XR chest 1V portable Exam Date/Time: 06/22/2022 16:00 CDT HISTORY: chest pain FOR 1 DAY, HTN Comparison: 09/18/2021. RESULT: Lines, tubes, and devices: None. Lungs and pleura: Clear. Cardiomediastinal silhouette: Stable. Other: No acute osseous or upper abdominal finding. IMPRESSION: No acute cardiopulmonary process. Reviewed, dictated and finalized at location K.
--- NOTE | 2022-06-22 15:10 | ECG_ITS ---
Measurements Intervals [place] Rate: 72 P: 52 OR: 167 QRS: 34 QRSD: 90 T: 11 QT: 364 QTc: 398 Interpretive Statements SINUS RHYTHM BORDERLINE T WAVE ABNORMALITY- INFERIOR LEADS BORDERLINE ECG COMPARED TO ECG 09/18/2021 17:33:34 NO SIGNIFICANT CHANGES Electronically Signed On 06-22-2022 21:25:09 CDT by Jose Mayen D.O.
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
[2022-06-22] MEDS: SODIUM CHLORIDE 0.9% IV 1,000 ML 999 ML IV CONT (16:09)
[2022-06-22 16:20] LABS: Basophils Percent Auto 0.2 % (0.2-1.2); Hematocrit 42.9 % (42.0-52.0); Hemoglobin 14.1 g/dL (14.0-18.0); Immature Granulocyte Absolute 0.02 K/mm3 (0.00-0.031); Immature Granulocyte Percent A 0.2 % (0-0.5); Lymphocytes Absolute Auto 1.61 K/mm3 (0.9-3.2); Lymphocytes Percent Auto 19.1 % (18.3-44.2); Mean Corpuscular HGB Conc 32.9 g/dl (32-36); Mean Corpuscular Hemoglobin 28.7 pg (26-34); Mean Corpuscular Volume 87.2 fl (80-100); Mean Platelet Volume 11.2 fl (7.4-10.4); Monocytes Absolute Auto 0.3 K/mm3 (0.1-0.6); Monocytes Percent Auto 3.9 % (2.6-8.5); Neutrophils Absolute Auto 6.5 K/mm3 (1.3-6.7); Neutrophils Percent Auto 76.6 % (45.5-73.1); Platelet Count Result 122 k/mm3 (150-375); Red Blood Count 4.92 M/mm3 (4.6-6.20); Red Cell Distribution Width 13.9 % (11.5-14.5); White Blood Count 8.5 K/mm3 (4.5-10.0)
[2022-06-22 16:29] LABS: Alanine Aminotransferase 32 U/L (6-50); Albumin Level 4.5 g/dL (3.5-5.1); Alkaline Phosphatase 93 U/L (38-126); Anion Gap 7 mmol/L (8-16); Aspartate Amino Transferase 37 U/L (17-59); Bilirubin,Total 0.8 mg/dL (0.2-1.3); Blood Urea Nitrogen 7 mg/dL (9-20); Calcium 9.2 mg/dL (8.4-10.2); Carbon Dioxide 28 mmol/L (22-30); Chloride 104 mmol/L (98-107); Estimated Glomerular Filt Rate > 60; Glucose 133 mg/dL (65-110); Potassium 3.7 mmol/L (3.4-5.0); Sodium 139 mmol/L (137-145)
[2022-06-22 16:38] LABS: NT Pro B Type Natriuretic Pept < 20 pg/mL (19.9-100)
[2022-06-22 16:41] LABS: INR 1.1; Prothrombin Time 14.5 Seconds (11.1-14.7)
[2022-06-22 16:42] LABS: Partial Thromboplastin Time 34.6 SECONDS (22.3-36.8)
[2022-06-22 17:04] LABS: D Dimer 0.35 ug/mL (<0.48)
[2022-06-22] MEDS: ONDANSETRON INJ 4 MG/2 ML VIAL IV PUSH (18:17)
[2022-06-22] MEDS: ASPIRIN 81 MG CHEWABLE TABLET 324 MG PO (18:17)
[2022-06-22 18:25] LABS: Troponin I < 0.012 ng/mL (0.000-0.034)
[2022-06-22 18:32] LABS: Amphetamine Screen Urine Negative (Negative); Barbiturate Screen Urine Negative (Negative); Benzodiazepines Screen Urine Negative (Negative); Cannabinoid Screen Urine Negative (Negative); Cocaine Screen Urine Negative (Negative); Methadone Screen Urine Negative (Negative); Opiate Screen Urine Negative (Negative); Phencyclidine Screen Urine Negative (Negative)
[2022-06-22 18:47] LABS: Appearance Urine Clear (Clear); Bilirubin Urine Negative (Negative); Blood Urine Negative (Negative); Color Urine Yellow (Yellow); Glucose Urine UA Negative (Negative); Ketones Urine Negative (Negative); Leukocyte Esterase Ur Negative LEU/UL (Negative); Nitrate Urine Negative (Negative); Protein Urine Negative (Negative); Specific Grav Ur 1.009 (1.001-1.035); Urobilinogen Urine 0.2 mg/dL (<2.0)
[2022-06-22 18:48] LABS: Add Urine Microscopic? NO
--- NOTE | 2022-06-22 18:52 | PC.NURSE ---
Metoprolol held per ERP for HR-77 BP 108/68
[2022-06-22 19:16] LABS: Troponin I < 0.012 ng/mL (0.000-0.034)
== END 2022-06-22 19:31 | disposition home or self-care (01) ==
PROVIDERS: Emergency Provider Physician Assistant
DX: R00.2 Palpitations (principal); R07.89 Other chest pain; I10 Essential (primary) hypertension; B19.20 Unspecified viral hepatitis C without hepatic coma; R94.31 Abnormal electrocardiogram [ECG] [EKG]
CPT/HCPCS: 36415; 71045; 80053; 80307; 81003; 83880; 84484; 85025; 85055; 85380; 85610; 85730; 93005; 96361; 96374; 99284; A9270; J2405; J7030

== ENCOUNTER 2023-05-18 17:38 | Emergency (ER) | payer OTHER, MEDICAID, SELFPAY ==
--- NOTE | ~2023-05-18 | CT_ITS ---
EXAMINATION: CT abdomen pelvis wo con DATE: 05/18/2023 19:11 INDICATION: hematuria, flank pain TECHNIQUE: Computed tomography (CT) of the abdomen and pelvis was performed without intravenous contr ast. Automated exposure control and iterative reconstruction technique were employed. The dose-length product was 1132.42 mGy-cm. COMPARISON: None. FINDINGS: Lower thorax: Moderate symmetric gynecomastia. Multiple clustered air cysts in the right lower lobe. Liver: Normal. Biliary/Gallbladder: Gallbladder is normal. No bile duct dilation. Pancreas: Mild fatty atrophy. Spleen: Normal. Adrenals:No mass. Kidneys: No suspicious mass, obstructing stone, or hydronephrosis. GI tract: No small or large bowel dilation. Normal appendix. Mesentery/Peritoneum: No ascites, mass, or free air. Retroperitoneum: No mass. Pelvis: Pelvic organs are within normal limits. Soft Tissues: Soft tissues and body wall unremarkable. Bones: No acute osseous finding. Uncomplicated appearing right pelvic screw and plate fixation hardw are IMPRESSION: No acute abdominopelvic process detected. Specifically there is no CT evidence of nephrolithiasis or obstructive uropathy. Moderate symmetric gynecomastia. Clustered air cysts in the right lower lobe, consider nonemergent high-resolution CT of the chest and pulmonology referral. Reviewed, dictated and finalized at location K. IMPRESSION: No acute abdominopelvic process detected. Specifically there is no CT evidence of nephrolithiasis or obstructive uropathy. Moderate symmetric gynecomastia. Clustered air cysts in the right lower lobe, consider nonemergent high-resoluti on CT of the chest and pulmonology referral.
[2023-05-18 17:47] VITALS: BP 158/96; PULSE 97; RESP 18; TEMP 36.8; O2SAT 100
[2023-05-18 18:25] LABS: Basophils Percent Auto 0.3 % (0.2-1.2); Eosinophils Absolute Auto 0.1 K/mm3 (0-0.3); Eosinophils Percent Auto 0.5 % (0-4.4); Hematocrit 46.3 % (42.0-52.0); Hemoglobin 15.3 g/dL (14.0-18.0); Immature Granulocyte Absolute 0.02 K/mm3 (0.00-0.031); Immature Granulocyte Percent A 0.2 % (0-0.5); Lymphocytes Absolute Auto 3.67 K/mm3 (0.9-3.2); Lymphocytes Percent Auto 38.6 % (18.3-44.2); Mean Corpuscular Hemoglobin 28.2 pg (26-34); Mean Corpuscular Volume 85.3 fl (80-100); Mean Platelet Volume 11.1 fl (7.4-10.4); Monocytes Absolute Auto 0.5 K/mm3 (0.1-0.6); Monocytes Percent Auto 5.1 % (2.6-8.5); Neutrophils Absolute Auto 5.3 K/mm3 (1.3-6.7); Neutrophils Percent Auto 55.3 % (45.5-73.1); Platelet Count Result 179 k/mm3 (150-375); Red Blood Count 5.43 M/mm3 (4.6-6.20); Red Cell Distribution Width 12.9 % (11.5-14.5); White Blood Count 9.5 K/mm3 (4.5-10.0)
[2023-05-18 18:30] LABS: Bacteria Urine None Seen /hpf; Non Pathogenic Casts 0-2; RBC Urine 0-2 /hpf (0-2); Squamous Epithelial Cell Urine None Seen /hpf (Few); WBC Urine 0-5 /hpf (0-3)
[2023-05-18 18:33] LABS: Appearance Urine Clear (Clear); Color Urine Yellow (Yellow)
[2023-05-18 18:34] LABS: Bilirubin Urine Negative (Negative); Blood Urine Trace-intact (Negative); Glucose Urine UA Negative (Negative); Ketones Urine Negative (Negative); Nitrate Urine Negative (Negative); Protein Urine Negative (Negative); Specific Grav Ur >= 1.030 (1.001-1.035)
[2023-05-18 18:35] LABS: Alanine Aminotransferase 112 U/L (6-50); Albumin Level 4.8 g/dL (3.5-5.1); Alkaline Phosphatase 73 U/L (38-126); Anion Gap 10 mmol/L (4-12); Aspartate Amino Transferase 60 U/L (17-59); Bilirubin,Total 0.7 mg/dL (0.2-1.3); Blood Urea Nitrogen 17 mg/dL (9-20); Calcium 9.7 mg/dL (8.4-10.2); Carbon Dioxide 24 mmol/L (22-30); Chloride 102 mmol/L (98-107); Estimated CRCL calculation 124 ml/min; Estimated Glomerular Filt Rate > 60; Glucose 101 mg/dL (65-110); Leukocyte Esterase Ur Negative LEU/UL (Negative); Potassium 3.9 mmol/L (3.4-5.0); Sodium 136 mmol/L (137-145); Urobilinogen Urine 0.2 mg/dL (<2.0)
[2023-05-18 18:36] LABS: Add Urine Microscopic? YES
[2023-05-18] MEDS: SODIUM CHLORIDE 0.9% IV 1,000 ML 999 ML IV CONT (18:51)
[2023-05-18 19:02] LABS: Influenza A QL RT-PCR Negative (Negative); Influenza B QL RT-PCR Negative (Negative); RSV RNA, RT-PCR Negative (Negative); SARS-CoV-2 RNA PCR Negative (Negative)
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
[2023-05-18 19:19] VITALS: BP 145/89; PULSE 80; RESP 16; O2SAT 98
[2023-05-18] MEDS: ONDANSETRON INJ 4 MG/2 ML VIAL IV PUSH (19:37)
== END 2023-05-18 20:20 | disposition home or self-care (01) ==
PROVIDERS: Emergency Provider Emergency Medicine; PCP Nurse Practitioner
DX: R53.83 Other fatigue (principal); R10.9 Unspecified abdominal pain; Z20.822 Contact with and (suspected) exposure to COVID-19; B19.20 Unspecified viral hepatitis C without hepatic coma; I10 Essential (primary) hypertension
CPT/HCPCS: 36415; 74176; 80053; 81001; 85025; 87637; 96361; 96374; 99284; J2405; J7030

== ENCOUNTER 2023-08-28 13:42 | Emergency (ER) | payer OTHER, MEDICAID, SELFPAY ==
--- NOTE | ~2023-08-28 | XR_ITS ---
EXAMINATION: XR chest 1V portable Exam Date/Time: 08/28/2023 14:55 CDT HISTORY: dyspnea, FEVER, CHILLS, Comparison: 12/26/2022. RESULT: Lines, tubes, and devices: None. Lungs and pleura: Clear. Cardiomediastinal silhouette: Stable. Other: No acute osseous or upper abdominal finding. IMPRESSION: No acute cardiopulmonary process. Reviewed, dictated and finalized at location K.
[2023-08-28 14:01] VITALS: BP 125/79; PULSE 93; RESP 16; TEMP 36.3; O2SAT 97
--- NOTE | 2023-08-28 14:55 | ECG_ITS ---
Test Date: 2023-08-28 15:31:20 Measurements Intervals [place] Rate: 85 P: 61 MS: 153 QRS: 31 QRSD: 96 T: 32 QT: 343 QTc: 408 Interpretive Statements SINUS RHYTHM DELAYED PRECORDIAL R/S TRANSITION BASELINE ARTIFACT- AVL, AVF BORDERLINE ECG No previous ECG available for comparison Electronically Signed On 08-28-2023 20:48:19 CDT by Jose Mayen D.O.
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
[2023-08-28 15:51] LABS: Basophils Percent Auto 0.4 % (0.2-1.2); Eosinophils Absolute Auto 0.1 K/mm3 (0-0.3); Hematocrit 49.1 % (42.0-52.0); Hemoglobin 16.2 g/dL (14.0-18.0); Immature Granulocyte Absolute 0.01 K/mm3 (0.00-0.031); Immature Granulocyte Percent A 0.1 % (0-0.5); Immature Platelet Fraction Pct 19.8 % (0.9-11.2); Lymphocytes Absolute Auto 2.47 K/mm3 (0.9-3.2); Lymphocytes Percent Auto 34.8 % (18.3-44.2); Mean Corpuscular Hemoglobin 28.5 pg (26-34); Mean Corpuscular Volume 86.4 fl (80-100); Mean Platelet Volume 12.5 fl (7.4-10.4); Monocytes Absolute Auto 0.5 K/mm3 (0.1-0.6); Monocytes Percent Auto 6.8 % (2.6-8.5); Neutrophils Percent Auto 56.9 % (45.5-73.1); Platelet Count Result 89 k/mm3 (150-375); Red Blood Count 5.68 M/mm3 (4.6-6.20); Red Cell Distribution Width 12.8 % (11.5-14.5); White Blood Count 7.1 K/mm3 (4.5-10.0)
[2023-08-28 16:02] LABS: Alanine Aminotransferase 113 U/L (6-50); Albumin Level 4.9 g/dL (3.5-5.1); Alkaline Phosphatase 57 U/L (38-126); Anion Gap 10 mmol/L (4-12); Aspartate Amino Transferase 73 U/L (17-59); Bilirubin,Total 1.1 mg/dL (0.2-1.3); Blood Urea Nitrogen 13 mg/dL (9-20); CRP < 0.5 mg/dL (<1.0); Calcium 9.2 mg/dL (8.4-10.2); Carbon Dioxide 32 mmol/L (22-30); Chloride 98 mmol/L (98-107); Estimated CRCL calculation 120 ml/min; Estimated Glomerular Filt Rate > 60; Glucose 90 mg/dL (65-110); Potassium 4.9 mmol/L (3.4-5.0); Sodium 140 mmol/L (137-145)
[2023-08-28] MEDS: SODIUM CHLORIDE 0.9% IV 1,000 ML 999 ML IV CONT (16:08)
[2023-08-28] MEDS: ONDANSETRON INJ 4 MG/2 ML VIAL IV PUSH (16:08)
[2023-08-28 16:11] LABS: Troponin I < 0.012 ng/mL (0.000-0.034)
[2023-08-28 16:37] VITALS: RESP 16
[2023-08-28 16:44] VITALS: BP 155/83; PULSE 74; RESP 15; O2SAT 99
== END 2023-08-28 16:46 | disposition home or self-care (01) ==
PROVIDERS: Emergency Provider Physician Assistant; PCP Nurse Practitioner
DX: R11.0 Nausea (principal); D69.6 Thrombocytopenia, unspecified; B18.2 Chronic viral hepatitis C; I10 Essential (primary) hypertension; R94.31 Abnormal electrocardiogram [ECG] [EKG]; Z79.899 Other long term (current) drug therapy
CPT/HCPCS: 36415; 71045; 80053; 84484; 85025; 85055; 86140; 93005; 96361; 96374; 99284; J2405; J7030

== ENCOUNTER 2023-09-15 15:48 | Outpatient (CLI) | payer OTHER, MEDICAID, SELFPAY ==
[2023-09-15 16:28] LABS: INR 1.1
[2023-09-15 16:35] LABS: Iron 201 ug/dL (49-181)
[2023-09-15 16:44] LABS: Percent Iron Saturation 44 % (20-50)
[2023-09-15 19:16] LABS: Hepatitis B Surface Antigen Negative (Negative)
[2023-09-15 19:25] LABS: HAV RESULT Negative (Negative); Hepatitis B Core IgM Result Negative (Negative)
[2023-09-15 19:33] LABS: Hepatitis B Surface Antibody > 1000.00 s/c
[2023-09-15 19:39] LABS: Hepatitis C Virus Antibody Reactive (Negative)
[2023-09-16 05:49] LABS: Hepatitis B Surface Anti Res Positive
[2023-09-17 04:10] LABS: Hepatitis A Antibody Total REACTIVE (NON-REACTIVE); Hepatitis B Core Ab Total NON-REACTIVE (NON-REACTIVE)
[2023-09-17 15:19] LABS: Hepatitis C RNA, Quant PCR 4060000 IU/mL (NOT DETECTED)
[2023-09-20 15:58] LABS: Alpha-1-Antitrypsin, QN 164 mg/dL (83-199); Ceruloplasmin 22 mg/dL (14-30)
[2023-09-22 11:17] LABS: Actin Antibody (IgG) <20 U (<20)
[2023-09-23 12:13] LABS: HCV Genotype, LiPA 3
[2023-09-26 12:24] LABS: LKM 1 Antibody <=20.0 U (<=20.0)
[2023-09-26 14:18] LABS: ALT 140 U/L (9-46); Alpha-2-Macroglobulin 320 mg/dL (106-279); Apolipoprotein A1 156 mg/dL (94-176); Fibrosis Score 0.48; Fibrosis Stage F1-F2; GGT 69 U/L (3-90); Haptoglobin 68 mg/dL (43-212); Necroinflammat Act Grade A3; Reference ID 5041004; Total Bilirubin 0.5 mg/dL (0.2-1.2)
[2023-09-27 10:13] LABS: Mitochondrial (M2) Ab (IgG) <20.0 U
== END 2023-09-15 15:49 | disposition home or self-care (01) ==
PROVIDERS: PCP Nurse Practitioner; Visit Provider Nurse Practitioner
DX: B19.20 Unspecified viral hepatitis C without hepatic coma (principal); D69.6 Thrombocytopenia, unspecified; F10.11 Alcohol abuse, in remission; F19.11 Other psychoactive substance abuse, in remission; K74.60 Unspecified cirrhosis of liver; R79.89 Other specified abnormal findings of blood chemistry
CPT/HCPCS: 36415; 80074; 81596; 82103; 82105; 82390; 82728; 83520; 83540; 83550; 85610; 86038; 86039; 86364; 86376; 86704; 86706; 86708; 87522; 87902

== ENCOUNTER 2023-10-05 07:30 | Outpatient (CLI) | payer OTHER, MEDICAID, SELFPAY ==
--- NOTE | ~2023-10-05 | US_ITS ---
US abdomen limited INDICATION: Elevated liver function tests. PROCEDURE: Realtime right upper abdominal ultrasound. COMPARISON: No prior studies for comparison. FINDINGS: The pancreas is normal without focal mass or pancreatic ductal dilation. Liver echotexture is normal without focal mass or intrahepatic biliary dilatation. There is normal directional flow i n the portal vein. The gallbladder is normal without stones, gallbladder wall thickening or pericholecystic fluid. Comm on bile duct measures 4.4 mm. No sonographic Bingham's sign. IMPRESSION: 1: Normal limited abdominal ultrasound. Reviewed, dictated and finalized at location B.
== END 2023-10-05 07:31 | disposition home or self-care (01) ==
PROVIDERS: PCP Nurse Practitioner; Visit Provider Nurse Practitioner
DX: B19.20 Unspecified viral hepatitis C without hepatic coma (principal); D69.6 Thrombocytopenia, unspecified; F10.11 Alcohol abuse, in remission; F19.11 Other psychoactive substance abuse, in remission; R79.89 Other specified abnormal findings of blood chemistry; R94.5 Abnormal results of liver function studies
CPT/HCPCS: 76705

== ENCOUNTER 2023-10-19 02:21 | Day surgery (SDC) | payer OTHER, MEDICAID, SELFPAY ==
[2023-10-03 10:50] VITALS: BMI 35.3
[2023-10-19 11:40] VITALS: BP 149/74; PULSE 91; RESP 18; TEMP 36.3; O2SAT 97; BMI 34.8
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
[2023-10-19] MEDS: LACTATED RINGERS 1,000 ML 150 ML IV CONT (12:19)
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
[2023-10-19] MEDS: BENZOCAINE (*SP) 60 ML SPRAY CAN (HURRICAINE) 1 SPRAY MUCOUS MEM (12:39)
--- NOTE | 2023-10-19 12:51 | SUR.OPER ---
EGD end time: 1245, Colonoscopy start time: 1249
[2023-10-19 13:04] VITALS: BP 106/65; PULSE 70; RESP 15; O2SAT 95
[2023-10-19 13:14] VITALS: BP 100/60; PULSE 63; RESP 15; O2SAT 94
[2023-10-19 13:24] VITALS: BP 120/76; PULSE 61; RESP 14; O2SAT 100
== END 2023-10-19 13:30 | disposition home or self-care (01) ==
PROVIDERS: PCP Nurse Practitioner; Referring Provider Nurse Practitioner; Visit Provider Internal Medicine Gastroenterology
PROC: 0DJ08ZZ Inspection of Upper Intestinal Tract, Via Natural or Artificial Opening Endoscopic (ICD-10-PCS; CPT 43235; principal; 2023-10-19 13:30)
DX: K59.09 Other constipation (principal); K64.8 Other hemorrhoids; K29.50 Unspecified chronic gastritis without bleeding; B19.20 Unspecified viral hepatitis C without hepatic coma; I10 Essential (primary) hypertension; E66.9 Obesity, unspecified; Z68.34 Body mass index [BMI] 34.0-34.9, adult
CPT/HCPCS: 45378; 43239; 88305; J2704; J7120

== ENCOUNTER 2023-11-07 15:34 | Outpatient (CLI) | payer OTHER, MEDICAID, SELFPAY ==
[2023-11-07 15:50] LABS: Basophils Percent Auto 0.4 % (0.2-1.2); Eosinophils Absolute Auto 0.1 K/mm3 (0-0.3); Eosinophils Percent Auto 1.9 % (0-4.4); Hematocrit 42.9 % (42.0-52.0); Immature Granulocyte Absolute 0.01 K/mm3 (0.00-0.031); Immature Granulocyte Percent A 0.1 % (0-0.5); Lymphocytes Absolute Auto 2.81 K/mm3 (0.9-3.2); Lymphocytes Percent Auto 38.4 % (18.3-44.2); Mean Corpuscular HGB Conc 32.6 g/dl (32-36); Mean Corpuscular Hemoglobin 28.8 pg (26-34); Mean Corpuscular Volume 88.3 fl (80-100); Mean Platelet Volume 10.2 fl (7.4-10.4); Monocytes Absolute Auto 0.4 K/mm3 (0.1-0.6); Monocytes Percent Auto 5.6 % (2.6-8.5); Neutrophils Absolute Auto 3.9 K/mm3 (1.3-6.7); Neutrophils Percent Auto 53.6 % (45.5-73.1); Platelet Count Result 170 k/mm3 (150-375); Red Blood Count 4.86 M/mm3 (4.6-6.20); Red Cell Distribution Width 12.7 % (11.5-14.5); White Blood Count 7.3 K/mm3 (4.5-10.0)
[2023-11-07 16:32] LABS: Iron 86 ug/dL (49-181)
[2023-11-07 16:45] LABS: Percent Iron Saturation 19 % (20-50)
[2023-11-07 17:31] LABS: Alanine Aminotransferase 177 U/L (6-50); Albumin Level 4.6 g/dL (3.5-5.1); Alkaline Phosphatase 89 U/L (38-126); Anion Gap 11 mmol/L (4-12); Aspartate Amino Transferase 100 U/L (17-59); Bilirubin,Total 0.4 mg/dL (0.2-1.3); Blood Urea Nitrogen 11 mg/dL (9-20); Calcium 8.9 mg/dL (8.4-10.2); Carbon Dioxide 29 mmol/L (22-30); Chloride 97 mmol/L (98-107); Estimated Glomerular Filt Rate > 60; Glucose 104 mg/dL (65-110); Potassium 4.5 mmol/L (3.4-5.0); Sodium 137 mmol/L (137-145)
[2023-11-07 18:44] LABS: Folic Acid 5.6 ng/mL (2.76->20)
[2023-11-10 17:32] LABS: Platelet Antibody, Direct NEGATIVE (NEGATIVE)
[2023-11-11 12:43] LABS: Methylmalonic Acid 125 nmol/L (55-335)
[2023-11-14 13:34] LABS: Soluble Transferrin Receptor 1.14 mg/L (0.76-1.76)
== END 2023-11-07 15:35 | disposition home or self-care (01) ==
LOC: ANHLAB 15:36
PROVIDERS: PCP Nurse Practitioner; Visit Provider Internal Medicine Hematology & Oncology
DX: D64.9 Anemia, unspecified (principal); D69.59 Other secondary thrombocytopenia
CPT/HCPCS: 36415; 80053; 82607; 82728; 82746; 83540; 83550; 83921; 84238; 85025; 86023

== ENCOUNTER 2024-02-20 21:12 | Emergency (ER) | payer OTHER, SELFPAY ==
[2024-02-20 21:15] VITALS: BP 154/89; PULSE 91; RESP 16; TEMP 36.8; O2SAT 100
== END 2024-02-21 00:57 | disposition left against medical advice (07) ==
PROVIDERS: PCP Nurse Practitioner
DX: R10.9 Unspecified abdominal pain (principal)
CPT/HCPCS: 99199

== ENCOUNTER 2024-02-21 10:15 | Emergency (ER) | payer OTHER, SELFPAY ==
--- NOTE | ~2024-02-21 | XR_ITS ---
Clinical Indication: Cough PA and lateral views of the chest: Comparison: 08/28/2023 Findings: The lungs are clear, without evidence of focal consolidation or pleural effusion. Cardiome diastinal silhouette is within normal limits. Bones and soft tissues are unremarkable. Impression: Normal chest. Reviewed, dictated and finalized at location . 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
--- NOTE | ~2024-02-21 | CT_ITS ---
Non-contrast CT scan of the Abdomen and Pelvis Clinical indication: Abdominal pain Technique: 2.5 mm axial scans were obtained through the abdomen and pelvis without intravenous or or al contrast. Dose reduction technique was used on this scan by utilizing automated exposure control a nd iterative reconstruction technique. The dose-length product (DLP) was 1495.85 mGy-cm. COMPARISON: 05/18/2023 Findings: Images through the lung bases reveal multiple cystic areas in the right lung base. There is no evidence of renal or ureteral calculi. The kidneys and the ureters are nondilated. The liver, pancreas, gallbladder, and adrenals appear normal. Spleen is enlarged, measuring 15.6 cm i n length. There is no aortic aneurysm. There is no evidence of bowel obstruction. Images through the pelvis were performed. There is no evidence of ascites or lymphadenopathy. Urinary bladder unremarkable. No pelvic mass seen. Impression: Splenomegaly, of uncertain etiology. Reviewed, dictated and finalized at [facility]. [employer]ABLE ENERGY PROJECT MANAGER Impression: Splenomegaly, of uncertain etiology.
[2024-02-21 10:21] VITALS: BP 157/92; PULSE 91; RESP 16; TEMP 36.6; O2SAT 100
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
[2024-02-21 12:40] LABS: Add Urine Microscopic? NO; Appearance Urine Clear (Clear); Bilirubin Urine Negative (Negative); Blood Urine Negative (Negative); Color Urine Yellow (Yellow); Glucose Urine UA Negative (Negative); Ketones Urine Negative (Negative); Leukocyte Esterase Ur Negative LEU/UL (Negative); Nitrate Urine Negative (Negative); Protein Urine Negative (Negative); Specific Grav Ur 1.006 (1.001-1.035); pH Urine 6.5 (5.0-9.0)
[2024-02-21 13:13] LABS: Influenza A QL RT-PCR Positive (Negative); Influenza B QL RT-PCR Negative (Negative); RSV RNA, RT-PCR Negative (Negative); SARS-CoV-2 RNA PCR Negative (Negative)
--- NOTE | 2024-02-21 13:42 | PC.NURSE ---
Pt c/o nausea. Dr. Tesfaye informed
[2024-02-21] MEDS: IPRATROPIUM 0.5 MG/ALBUTEROL SULFATE 2.5 MG AMPUL.NEB 3 ML INHALATION (13:43)
[2024-02-21 13:45] VITALS: PULSE 71; RESP 20
[2024-02-21 13:46] LABS: Basophils Percent Auto 0.2 % (0.2-1.2); Eosinophils Percent Auto 0.4 % (0-4.4); Hematocrit 44.6 % (42.0-52.0); Immature Granulocyte Absolute 0.01 K/mm3 (0.00-0.031); Immature Granulocyte Percent A 0.2 % (0-0.5); Immature Platelet Fraction Pct 5.1 % (0.9-11.2); Lymphocytes Absolute Auto 1.78 K/mm3 (0.9-3.2); Lymphocytes Percent Auto 38.7 % (18.3-44.2); Mean Corpuscular HGB Conc 33.6 g/dl (32-36); Mean Corpuscular Hemoglobin 28.6 pg (26-34); Mean Platelet Volume 10.7 fl (7.4-10.4); Monocytes Absolute Auto 0.3 K/mm3 (0.1-0.6); Monocytes Percent Auto 6.3 % (2.6-8.5); Neutrophils Absolute Auto 2.5 K/mm3 (1.3-6.7); Neutrophils Percent Auto 54.2 % (45.5-73.1); Platelet Count Result 139 k/mm3 (150-375); Red Blood Count 5.25 M/mm3 (4.6-6.20); Red Cell Distribution Width 12.4 % (11.5-14.5); White Blood Count 4.6 K/mm3 (4.5-10.0)
[2024-02-21 13:51] VITALS: PULSE 71; RESP 20
[2024-02-21 13:57] LABS: Alanine Aminotransferase 23 U/L (6-50); Albumin Level 4.4 g/dL (3.5-5.1); Alkaline Phosphatase 53 U/L (38-126); Anion Gap 5 mmol/L (4-12); Aspartate Amino Transferase 41 U/L (17-59); Bilirubin,Total 0.4 mg/dL (0.2-1.3); Blood Urea Nitrogen 7 mg/dL (9-20); Calcium 8.8 mg/dL (8.4-10.2); Carbon Dioxide 29 mmol/L (22-30); Chloride 105 mmol/L (98-107); Estimated CRCL calculation 136 ml/min; Estimated Glomerular Filt Rate > 60; Glucose 96 mg/dL (65-110); Lipase 28 U/L (23-300); Potassium 3.5 mmol/L (3.4-5.0); Sodium 139 mmol/L (137-145)
[2024-02-21] MEDS: ONDANSETRON INJ 4 MG/2 ML VIAL IV PUSH (14:03)
[2024-02-21 14:05] VITALS: BP 156/90; PULSE 71; RESP 18; TEMP 36.6; O2SAT 98
[2024-02-21 14:43] VITALS: BP 154/95; PULSE 79; RESP 16; TEMP 36.4; O2SAT 99
--- OUTSIDE RECORDS SUMMARY | 2024-02-28 22:26 | XMS_ITS | Encounter Summary ---
Author Organization [facility] Address [address] [place], [place] [address] [address] Care Team Providers Care Turn Laster Name Role Phone Unavailable Primary Care Provider Unavailabl e Reason for Visit * Reason Comments Wound/Incision Check Pt with hx of IVDA exhibits swelling and redness to injection sites in bilateral feet with associated skin lesions to generalized body. Encounter Details Date Type Department Care Team (Late st Contact Info) Description 01/19/2022 9:18 PM [facility] - 01/19/2022 9:19 PM [facility] Emergency [facility] EMERGENCY DEPARTMENT [address] [place] [address] [phone] Discharge Disposition: Left Against Medical Advice/Discontinued Care Social History Tobacco Use Types Packs/Day Years Used Date Smoking Tobacco: Never Smokeless Tobacco: Never Tobacco Cessation:Counseling Given: Not Answered Alcohol Use Standard Drinks/Week Comments No 0 (1 standard drink = 0.6 oz pur e alcohol) AUDIT-C Answer Date Recorded Q1: How often do you have a drink containing alc ohol? Monthly or less 01/19/2022 Q2: How many drinks containi ng alcohol do you have on a typical day when you are drinking? 1 or 2 01/19/2022 Q3: How often do you have si x or more drinks on one occasion? Less than monthly 01/19/2022 Sex and Gender Information Value Date Recorded Sex Assigned at Not on file Gender Identity Not on file Sexual Orientation Not on file documented as of this encounter Last Filed Vital Signs Vital Sign Reading Time Taken Comments Blood Pressure 206/117 01/19/2022 1:04 PM [facility] Pulse 112 01/19/2022 1:04 PM [facility] Temperature 36.2 ??C (97.1 ??F) 01/19/2022 1:04 PM CS T Respiratory Rate 19 01/19/2022 1:04 PM [facility] Oxygen Saturation 96% 01/19/2022 1:04 PM [facility] Inhaled Oxygen Concentration - - Weight 122.5 kg (270 lb) 01/19/2022 1:04 PM [facility] Height 182.9 cm (6') 01/19/2022 1:04 PM [facility] Body Mass Index 36.62 01/19/2022 1:04 PM [facility] documented in this encounter Medications at Time of Discharge Medication Sig Dispensed Refills Start Date End Date citalopram (CELEXA) 40 MG tablet Take 40 mg by mouth daily. documented as of this encounter ED Notes * Krystyna Vasquez RN - 01/19/2022 9:17 PM CST Pt no answer x3 in ED WR. Pt taken out of system d/t no answer x3 and not seen in WR [facility] * Krystyna Vasquez RN - 01/19/2022 8:00 PM CST Call x2 [facility] * Goyo Hahn - 01/19/2022 4:57 PM CST Pt came up to desk stating he is leaving. Pt was seen leaving ED [facility] * Jan Kraus RN - 01/19/2022 1:06 PM CST Pt with hx of IVDA exhibits swelling and redness to injection sites in bilateral feet with associated skin lesions to generalized body. [facility] MANAGERS documented in this encounter Plan of Treatment Not on file documented as of this encounter Visit Diagnoses Not on filedocumented in this encounter
--- OUTSIDE RECORDS SUMMARY | 2024-02-28 22:26 | XMS_ITS | Encounter Summary ---
Author Organization [facility] Address [address] [place], [place] [address]Al[place] [address] Care Team Providers Care Missing Persons Investigator Name Role Phone Pcp, Unknown Primary Care Provider Unavailabl e Encounter Details Date Type Department Care Team (Latest Contact Info) Description 06/18/2009 1:36 PM CDT - 06/20/2009 7:00 PM CDT Hospital Encounter [facility] 2 ORTHO/[place] [address] [place] [address] Ron Hinson MD Updated address needed [place] Discharge Disposition: Left Against Medical Advice/Discontinued Care Social History Tobacco Use Types Packs/Day Years Used Date Smoking Tobacco: Never Alcohol Use Standard Drinks/Week Comments No 0 (1 standard drink = 0.6 oz pur e alcohol) Sex and Gender Information Value Date Recorded Sex Assigned at Not on file Gender Identity Not on file Sexual Orientation Not on file documented as of this encounter Last Filed Vital Signs Vital Sign Reading Time Taken Comments Blood Pressure 134/75 06/20/2009 3:53 PM CDT Pulse 90 06/20/2009 3:53 PM CDT Temperature 37.1 ??C (98.7 ??F) 06/20/2009 3:53 PM CD T Respiratory Rate 20 06/20/2009 3:53 PM CDT Oxygen Saturation 98% 06/20/2009 3:53 PM CDT Inhaled Oxygen Concentration - - Weight 70.8 kg (156 lb) 06/18/2009 2:28 PM CDT Height 172.7 cm (5' 8 ) 06/18/2009 2:28 PM CDT Body Mass Index 23.72 06/18/2009 2:28 PM CDT documented in this encounter Discharge Summaries * Ron Hinson MD - 06/26/2009 2:33 PM CDT Patient left AMA 06/20/2009. documented in this encounter Medications at Time of Discharge Medication Sig Dispensed Refills Start Date End Date citalopram (CELEXA) 40 MG tablet Take 40 mg by mouth daily. documented as of this encounter Progress Notes * Fiordaliza Tamayo RN - 06/20/2009 6:26 PM CDT Pt stating he was leaving. Dr Hinson notified. AMA signed. Pt awaiting ride * Deloris Roman RN - 06/20/2009 5:23 AM CDT Pt resting in bed, slept well throughout the night. Responding well to scheduled medication. No complaints at this time, will continue to monitor. Abraham GRIFFITH * Vida Timmons RN - 06/19/2009 4:48 AM CDT Pt responding well to scheduled medication, requested Ambien last PM for insomnia, effective. Pt still asleep at this time. Easily awakens for V.S., WSNA, and assessment. Pt mildly diaphoretic at times. Vida Timmons RN 06/19/2009 4:51 AM * Fiordaliza Tamayo RN - 06/18/2009 5:19 PM CDT Pt admitted to 282. C/o of feeling restless. Dr hinson called for orders. Medication given. documented in this encounter H&P Notes * Ron Hinson MD - 06/19/2009 8:47 AM CDT Ron Hinson M.D. ADMITTED: 06/18/2009 1:36 PM Cc: Acute opiate withdrawal HISTORY OF PRESENT ILLNESS: Patient is admitted with runny nose, blurry vision, cramping pain and abdominal pain. He is feelingbetter now that he is on the protocol. He has attempted to quit using 4 times now, but he has been weak and his environment has been poor. Has LEVI. Patient Active Problem List Diagnoses Date Noted ??? Opiate Withdrawal [292.0AC] 06/19/2009 ??? OPIATE ADDICTION [304.00BJ] 06/19/2009 Past Medical History Diagnosis Date ??? Generalized Anxiety Disorder ??? DEPRESSIVE DISORDER, NOT ELSEWHERE CLASSIFIED No past surgical history on file. No Known Allergies. No current outpatient prescriptions on file prior to encounter. History Social History ??? Marital Status: Single Spouse Name: N/A Number of Children: N/A ??? Years of Education: N/A Occupational History ??? Not on file. Social History Main Topics ??? Tobacco Use: Never ??? Alcohol Use: No ??? Drug Use: Yes Special: Heroin ??? Sexually Active: Not on file Other Topics Concern ??? Not on file Social History Narrative ??? No narrative on file No family history on file. There is no immunization history on file for this patient. Health Maintenance Topic Date Due ??? Dyslipidemia screening q5 yr 2007 REVIEW OF SYSTEMS: The complete multisystem review of systems is negative except as above. In addition, the patient reports a history of depression and anxiety. PHYSICAL EXAM Vitals: 06/18/2009 8:30 PM 06/19/2009 12:28 AM 06/19/2009 5:07 AM 06/19/2009 8:16 AM BP: 103/63 113/53 105/48 Pulse: 80 66 79 77 Temp: 98.2 ??F 98 ??F 97.9 ??F 98.4 ??F Resp: 20 16 18 18 Weight: SpO2: 99% 98% 99% HEENT: Normocephalic and atraumatic. Extraocular muscles intact. No significant nystagmus. Auriclesintact without erythema. Hearing intact to conversational tone. Pharynx reveals no exudate. There is no erythema. EYES: Extraocular muscle movements are intact. Pupils are equal, round, and reactive to light. Conjunctiva are without significant erythema. NECK: No thyromegaly. No cervical adenopathy. 2+ carotid pulsations bilaterally. No carotid bruit is auscultated. CARDIAC: Regular rate and rhythm. No murmurs, rubs, or gallops. LUNGS: Clear to auscultation. No stridor. No accessory muscle use ABDOMEN: Bowel sounds are present. The abdomen is soft. There is no tenderness. There is no hepatosplenomegaly. No aortic aneurysm is detected. No bruit. EXTREMITIES: No edema. No foot ulcers. No cyanosis. No clubbing. NEUROLOGIC: Upper and lower extremity sensation is intact. Upper and lower extremity reflexes are symmetric. Negative straight leg raise. Gait is normal. MUSCULOSKELETAL: No muscle atrophy noted. No fasciculations. 5/5 strength in the lower extremities. SKIN: No suspicious lesions are noted on the exposed skin. BACK: No costovertebral angle tenderness to percussion. No palpable mass. PULSES: 2+ dorsalis pedis pulses. 2+ radial pulses Has multiple tattoos, no signs of infection. ASSESSMENT AND PLAN: Patient is stable on protocol, will add celexa. Will do after care in [place] with his mother. Patient Active Problem List Diagnoses Date Noted ??? Opiate Withdrawal [292.0AC] 06/19/2009 ??? OPIATE ADDICTION [304.00BJ] 06/19/2009 . documented in this encounter OR Notes * Operative - Document, Scanned - 06/18/2009 12:00 AM CDT documented in this encounter Miscellaneous Notes * Miscellaneous Scans - Document, Scanned - 06/18/2009 12:00 AM CDT * Miscellaneous Scans - Document, Scanned - 06/18/2009 12:00 AM CDT * Miscellaneous Scans - Document, Scanned - 06/18/2009 12:00 AM CDT * Miscellaneous Scans - Document, Scanned - 06/18/2009 12:00 AM CDT documented in this encounter Plan of Treatment Scheduled Orders Name Type Priority Associated Diagnoses Orde r Schedule CBC W AUTO DIFFERENTIAL Lab TONEY O NCE for 1 Occurrences starting 06/18/2009 until 06/18/2009 COMPREHENSIVE METABOLIC PANEL Lab TONEY ONCE for 1 Occur rences starting 06/18/2009 until 06/18/2009 ALCOHOL ETHYL BLOOD Lab TONEY ONCE for 1 Occurrences starting 06/18/2009 until 06/18/2009 LIPASE BLOOD Lab TONEY ONCE for 1 O ccurrences starting 06/18/2009 until 06/18/2009 MAGNESIUM BLOOD Lab TONEY ONCE for 1 Occurrences starting 06/18/2009 until 06/18/2009 HEPATITIS SCREEN ACUTE Lab TONEY ON CE for 1 Occurrences starting 06/18/2009 until 06/18/2009 documented as of this encounter Procedures Procedure Name Priority Date/Time Associated Diagnosis Comments DRUG SCREEN URINE TRIAGE PANEL Today 06/18/2009 2:45 PM CDT Drug Withdrawal (HCC) documented in this encounter Results * (ABNORMAL) DRUG SCREEN TRIAGE PANEL (06/18/2009 2:45 PM CDT) Pathologist [facility] Phencyclidine Screen Urine Negative Negative ng/ml [facility] Benzodiazepines Screen Urine Negative Negative ng/ml [facility] Cocaine Screen Urine Negative Negative ng/ml [facility] Amphetamines Screen Urine Negative Negative ng/ml [facility] Cannabinoids Screen Urine Negative Negative ng/ml [facility] Opiate Screen Urine Presumptive Positive(AA) Negative ng/ml [facility] Barbiturates Screen Urine Negative Negative ng/ml [facility] URINE / Unknown 06/18/2009 2 :45 PM CDT 06/18/2009 3:33 PM CDT Ron Hinson MD LAB - URINE CHEMISTR Y ORDERABLES Performing Organization Address City/State/[facility] Co de Phone Number [facility] [address] [place] [address] documented in this encounter Visit Diagnoses Diagnosis Opiate withdrawal (HCC)- Primary Drug withdrawal Drug withdrawal (HCC) Drug withdrawal Opiate addiction (HCC) Opioid type dependence, unspecified documented in this encounter Administered Medications Inactive Administered Medications - up to 3 most recent administrations Medication Order MAR Action Action Date Dose Rate Site citalopram (CELEXA) tablet 40 mg 40 mg, Oral, DAILY, First dose on Tue06/18/09 at 1645, Until Discontinued $ Given 06/19/2009 8:55 PM CDT 40 mg $ Given 06/18/2009 9:17 PM CDT 40 mg cloNIDine (CATAPRES) tablet 0.2 mg 0.2 mg, Oral, NOW, 1 dose, On Tue06/18/09 at 1645, ..For Blood Pressure over 140/90. $ Given 06/18/2009 4:53 P M CDT 0.2 mg lorazepam (ATIVAN) tablet 1 mg 1 mg, Oral, EVERY 2 HOURS PRN, Anxiety, sever anxiety, Starting on Tue06/18/09 at 1640, Until 06/21/09 at 0733, Hold for sedation. $ Given 06/20/2009 8:27 AM CDT 1 mg $ Given 06/19/2009 7:53 PM CDT 1 mg $ Given 06/19/2009 1:09 PM CDT 1 mg methadone (DOLOPHINE) tablet 10 mg 10 mg, Oral, EVERY 12 HOURS, 2 doses, First dose on Tue06/20/09 at 1630, Last dose on Tue06/21/09 at 0430, Day 3 severe pain prevention. Hold for sedation. $ Given 06/20/2009 4:13 PM CDT 10 mg methadone (DOLOPHINE) tablet 15 mg 15 mg, Oral, EVERY 12 HOURS, 2 doses, First dose on Tue06/19/09 at 1630, Last dose on Tue06/20/09 at 0430, Day 2 severe pain prevention. Hold for sedation. $ Given 06/20/2009 5:00 AM CDT 15 mg $ Given 06/19/2009 5:06 PM CDT 15 mg methadone (DOLOPHINE) tablet 20 mg 20 mg, Oral, EVERY 12 HOURS, 2 doses, First dose on Tue06/18/09 at 1645, Last dose on Tue06/19/09 at 0445, Day 1 severe pain prevention. Hold for sedation. $ Given 06/19/2009 4:24 AM CDT 20 mg $ Given 06/18/2009 4:52 PM CDT 20 mg methocarbamol (ROBAXIN) tablet 750 mg 750 mg, Oral, 3 TIMES DAILY PRN, Muscle Spasms, Starting on Tue06/18/09 at 1640, Until 06/21/09 at 0733 $ Given 06/20/2009 8:31 AM CDT 750 mg $ Given 06/19/2009 7:53 PM CDT 750 mg $ Given 06/19/2009 1:09 PM CDT 750 mg multivitamin daily (THERAGRAN) tablet 1 Tab 1 tablet, Oral, DAILY, First dose on Tue06/18/09 at 1645, Until Discontinued $ Given 06/20/2009 8:28 AM CDT tablet $ Given 06/19/2009 8:57 AM CDT tablet $ Given 06/18/2009 4:53 PM CDT tablet zolpidem (AMBIEN) tablet 10 mg 10 mg, Oral, AT BEDTIME PRN, Insomnia, Starting on Tue06/18/09 at 1640, Until 06/21/09 at 0733 $ Given 06/19/2009 8:55 PM CDT 10 mg $ Given 06/18/2009 9:18 PM CDT 10 mg documented in this encounter Active and Recently Administered Medications Times are shown in CDT. Scheduled Medication Order 06/18/2009 06/19/2009 06/20/2009 citalopram (CELEXA) tablet 40 mg (CANCELED) 40 mg, Oral, DAILY, First dose on Tue06/18/09 at 1645, Until Discontinued 2116 ($ Given - Provider: Vida Timmons RN) 2054 ($ Given - Provider: Deloris Roman, GLADIS)2100 (Canceled Entry - Provider: Fiordaliza Tamayo RN) 0900 (Canceled Entry - Provider: Fiordaliza Tamayo RN) cloNIDine (CATAPRES) tablet 0.2 mg (COMPLETED) 0.2 mg, Oral, NOW, 1 dose, On Tue06/18/09 at 1645, ..For Blood Pressure over 140/90. 1653 ($ Given - Provider: Fiordaliza Tamayo, RN) methadone (DOLOPHINE) tablet 10 mg (CANCELED) 10 mg, Oral, EVERY 12 HOURS, 2 doses, First dose on Tue06/20/09 at 1630, Last dose on Tue06/21/09 at 0430, Day 3 severe pain prevention. Hold for sedation. 1613 ($ Given - Provider: Fiordaliza Tamayo, RN) methadone (DOLOPHINE) tablet 15 mg (COMPLETED) 15 mg, Oral, EVERY 12 HOURS, 2 doses, First dose on Tue06/19/09 at 1630, Last dose on Tue06/20/09 at 0430, Day 2 severe pain prevention. Hold for sedation. 1706 ($ Given - Provider: Fiordaliza Tamayo, RN) 0500 ($ Given - Provider: Deloris Roman, GLADIS) methadone (DOLOPHINE) tablet 20 mg (COMPLETED) 20 mg, Oral, EVERY 12 HOURS, 2 doses, First dose on Tue06/18/09 at 1645, Last dose on Denisse 06/19/09 at 0445, Day 1 severe pain prevention. Hold for sedation. 1652 ($ Given - Provider: Fiordaliza Tamayo RN) 0424 ($ Given - Provider: Vida Timmons, RN) multivitamin daily (THERAGRAN) tablet 1 Tab (CANCELED) 1 tablet, Oral, DAILY, First dose on Tue06/18/09 at 1645, Until Discontinued 1653 ($ Given - Provider: Fiordaliza Tamayo RN) 0857 ($ Given - Provider: Fiordaliza Tamayo RN) 0828 ($ Given - Provider: Fiordaliza Tamayo RN) PRN Medication Order 06/18/2009 06/19/2009 06/20/2009 lorazepam (ATIVAN) tablet 1 mg (CANCELED) 1 mg, Oral, EVERY 2 HOURS PRN, Anxiety, sever anxiety, Starting on Tue06/18/09 at 1640, Until 06/21/09 at 0733, Hold for sedation. 165 ($ Given - Provider: Fiordaliza Tamayo RN) 0857 ($ Given - Provider: Fiordaliza Tamayo RN)1309 ($ Given - Provider: Fiordaliza Tamayo RN)195 ($ Given - Provider: Deloris Roman RN) 0827 ($ Given - Provider: Fiordaliza Tamayo RN) methocarbamol (ROBAXIN) tablet 750 mg (CANCELED) 750 mg, Oral, 3 TIMES DAILY PRN, Muscle Spasms, Starting on Tue06/18/09 at 1640, Until 06/21/09 at 0733 1309 ($ Given - Provider: Fiordaliza Tamayo RN)195 ($ Given - Provider: Deloris Roman, GLADIS) 0831 ($ Given - Provider: Fiordaliza Tamayo RN) zolpidem (AMBIEN) tablet 10 mg (CANCELED) 10 mg, Oral, AT BEDTIME PRN, Insomnia, Starting on Tue06/18/09 at 1640, Until 06/21/09 at 0733 211 ($ Given - Provider: Vida Timmons RN - Comment: pt c/o insomnia, request Ambien) 2054 ($ Given - Provider: Deloris Roman, GLADIS) documented in this encounter Care Teams Missing Persons Investigator Relationship Specialty Start Date End Date Pcp, Unknown No [place] [address] PCP - General 06/18/09 documented as of this encounter
--- OUTSIDE RECORDS SUMMARY | 2024-02-28 22:26 | XMS_ITS | Encounter Summary ---
Author Organization [facility] Care Team Providers Care Bill Distributor Name Role Phone Unavailable Primary Care Provider Unavailabl e Encounter Details Date Type Department Care Team (Latest Contact Info) Description 05/26/2022 Travel Social History Tobacco Use Types Packs/Day Years Used Date Smoking Tobacco: Never Assessed Sex and Gender Information Value Date Recorded Sex Assigned at Not on file Legal Sex Male 12:36 AM CDT Gender Identity Not on file Sexual Orientation Not on file COVID-19 Exposure Response Date Recorded In the last 10 days, have yo u been in contact with someone who was confirmed or suspected to have Coronavirus/COVID-19? No / Unsure 05/26/2022 2:54 PM CDT documented as of this encounter Plan of Treatment Not on file documented as of this encounter Visit Diagnoses Not on filedocumented in this encounter
--- OUTSIDE RECORDS SUMMARY | 2024-02-28 22:26 | XMS_ITS | Encounter Summary ---
Author Organization [facility] Address [address] [place] [address] Phone Care Team Providers Care Tax Evaluator Name Role Phone Roland Knight APRN, CNP Primary Care Provid er Reason for Visit * Reason Comments Constipation Encounter Details Date Type Department Care Team (Late st Contact Info) Description 06/14/2023 7:25 PM CDT - 06/14/2023 10:56 PM CDT Emergency [facility] Emergency [address] [place] [id number] Vijay Santana MD [address] [place] [id number] Atypical chest pain Discharge Disposition: Discharged to home or Selfcare Social History Tobacco Use Types Packs/Day Years Used Date Smoking Tobacco: Unknown Tobacco Cessation:Counseling Given: Not Answered Sex and Gender Information Value Date Recorded Sex Assigned at Not on file Legal Sex Male 12:36 AM CDT Gender Identity Not on file Sexual Orientation Not on file documented as of this encounter Last Filed Vital Signs Vital Sign Reading Time Taken Comments Blood Pressure 142/86 06/14/2023 10:15 PM CDT Pulse 75 06/14/2023 10:30 PM CDT Temperature 36.8 ??C (98.2 ??F) 06/14/2023 7:29 PM CD T Respiratory Rate 13 06/14/2023 10:30 PM CDT Oxygen Saturation 98% 06/14/2023 10:30 PM CDT Inhaled Oxygen Concentration - - Weight 122.5 kg (270 lb) 06/14/2023 7:29 PM CDT Height 182.9 cm (6') 06/14/2023 7:29 PM CDT Body Mass Index 36.62 06/14/2023 7:29 PM CDT documented in this encounter Medications at Time of Discharge senna-docusate (SENOKOT S) 8.6-50 MG Tablet Take 1 Tablet by mouth 2 times daily. 20 Tablet 06/14/2023 polyethylene glycol (GLYCOLAX, MIRALAX) 17 g Pack Take 1 Packet by mouth daily for 14 days. Dissolve in 4-8 oz of liquid. 238 g 06/14/2023 06/28/2023 documented as of this encounter ED Notes * Omar Stanton RN - 06/14/2023 10:55 PM CDT Patient discharged. Discharge instructions and patient educational material reviewed with patient; questions and concerns addressed; patient verbalizes understanding, using teach back. Patient was given 2 prescriptions. Patient was informed no drinking alcohol, driving or operating heavy machinery while taking narcotics or muscle relaxants. Patient ambulatory to ER exit with a steady gait and friend as responsible libertarian. SL D/C'ed with Carlos cath intact. Pt alert and oriented x 4 with respirations that are even and unlabored at tod. * Omar Stanton RN - 06/14/2023 10:19 PM CDT Pt medicated per provider orders. Pt educated on intended effects and side effects of medication and verbalized understanding, able to provide teach back of education. * Omar Stanton RN - 06/14/2023 9:44 PM CDT Pt medicated per provider orders. Pt educated on intended effects and side effects of medication and verbalized understanding, able to provide teach back of education. * Omar Stanton RN - 06/14/2023 8:27 PM CDT Pt medicated per provider orders. Pt educated on intended effects and side effects of medication and verbalized understanding, able to provide teach back of education. * Vijay Santana MD - 06/14/2023 7:51 PM CDT Chief Complaint Patient presents with Constipation Patient is a 37-year-old male with a history of constipation complaining not having a normal bowel movement x3 weeks. Patient states that he has a history of constipation. Patient states that he has taken a laxative and an enema with no results. Patient also states that he had chest discomfort earlier because he is feeling anxious about his constipation. Current Facility-Administered Medications Medication Dose Route Frequency Provider Last Rate Last Admin docusate sodium (COLACE) capsule 200 mg 200 mg Oral Once Vijay Santana MD magnesium citrate solution SOLN 296 mL 296 mL Oral Once Vijay Santana MD polyethylene glycol (GLYCOLAX, MIRALAX) packet 17 g 17 g Oral Once Vijay Santana MD Current Outpatient Medications Medication Sig Dispense Refill polyethylene glycol (GLYCOLAX, MIRALAX) 17 g Pack Take 1 Packet by mouth daily for 14 days. Dissolve in 4-8 oz of liquid. 238 g 0 senna-docusate (SENOKOT S) 8.6-50 MG Tablet Take 1 Tablet by mouth 2 times daily. 20 Tablet 0 Allergies Allergen Reactions Iodinated Contrast Media Anaphylaxis History reviewed. No pertinent past medical history. No past surgical history on file. Social History Socioeconomic History Marital status: Spouse name: Not on file Number of children: Not on file Years of education: Not on file Highest education level: Not on file Occupational History Not on file Tobacco Use Smoking status: Unknown Smokeless tobacco: Not on file Substance and Sexual Activity Alcohol use: Not on file Drug use: Not on file Sexual activity: Not on file Other Topics Concern Not on file Social History Narrative Not on file Social Determinants of Health Financial Resource Needs: Not on file Food Insecurity Needs: Not on file Transportation Needs: Not on file Physical Activity: Not on file Stress: Not on file Social Integration: Not on file Intimate Partner Violence: Not on file Housing Stability: Not on file BP (!) 159/103 Pulse 101 Temp 98.2 ??F (36.8 ??C) (Tympanic) Resp 18 Ht 6' (1.829 m) Wt 270 lb (122.5 kg) SpO2 97% BMI 36.62 kg/m?? Review of Systems Constitutional: Negative. HENT: Negative. Eyes: Negative. Respiratory: Negative. Cardiovascular: Negative. Endocrine: Negative. Genitourinary: Negative. Musculoskeletal: Negative. Allergic/Immunologic: Negative. Neurological: Negative. Hematological: Negative. Psychiatric/Behavioral: Negative. All other systems reviewed and are negative. Physical Exam Vitals and nursing note reviewed. Constitutional: General: He is not in acute distress. Appearance: Normal appearance. He is well-developed. He is not ill-appearing, toxic-appearing or diaphoretic. HENT: Head: Normocephalic and atraumatic. Right Ear: External ear normal. Left Ear: External ear normal. Mouth/Throat: Mouth: Mucous membranes are moist. Pharynx: Oropharynx is clear. Eyes: General: No scleral icterus. Extraocular Movements: Extraocular movements intact. Conjunctiva/sclera: Conjunctivae normal. Pupils: Pupils are equal, round, and reactive to light. Neck: Trachea: No tracheal deviation. Cardiovascular: Rate and Rhythm: Normal rate and regular rhythm. Heart sounds: Normal heart sounds. No murmur heard. No friction rub. No gallop. Pulmonary: Effort: Pulmonary effort is normal. No respiratory distress. Breath sounds: Normal breath sounds. No stridor. No wheezing, rhonchi or rales. Abdominal: General: Abdomen is flat. Bowel sounds are normal. There is no distension. Palpations: Abdomen is soft. Tenderness: There is no abdominal tenderness. There is no guarding or rebound. Musculoskeletal: General: Normal range of motion. Cervical back: Normal range of motion. Skin: General: Skin is warm and dry. Capillary Refill: Capillary refill takes less than 2 seconds. Coloration: Skin is not cyanotic, jaundiced, mottled or pale. Findings: No erythema or rash. Neurological: General: No focal deficit present. Mental Status: He is alert and oriented to person, place, and time. Cranial Nerves: No cranial nerve deficit. Coordination: Coordination normal. Psychiatric: Mood and Affect: Mood normal. Behavior: Behavior normal. Procedures Recent Results (from the past 24 hour(s)) CMP Result Value Ref Range SODIUM 136 136 - 145 mmol/L POTASSIUM 3.3 (L) 3.5 - 5.1 mmol/L CHLORIDE 99 98 - 107 mmol/L CO2, VENOUS 26 22 - 30 mmol/L ANION GAP 14.3 <18.0 mmol/L GLUCOSE 106 (H) 70 - 99 mg/dL BUN 10 9 - 21 mg/dL CREATININE, BLOOD 1.10 0.70 - 1.30 mg/dL BUN/CREATININE RATIO 9 (L) 12 - 20 ratio TOTAL PROTEIN 8.6 (H) 6.3 - 8.2 g/dL ALBUMIN 4.5 3.5 - 5.0 g/dL A/G RATIO 1.1 1.0 - 2.2 CALCIUM 9.6 8.7 - 10.5 mg/dL T BILI 0.5 0.2 - 1.2 mg/dL SGOT (AST) 109 (H) 5 - 34 U/L SGPT (ALT) 265 (H) 0 - 55 U/L ALKALINE PHOSPHATASE 88 40 - 150 U/L GFR, ESTIMATED >60 >=60 GFR, EST. >60 >=60 GFR, EST. NONAFRICAN >60 >=60 TROPONIN I, HIGH SENSITIVITY (HSTRP) Result Value Ref Range TROPONIN I, HIGH SENSITIVITY- [place] <3 <=35 ng/L CBC with Auto Differential Result Value Ref Range WBC 9.88 4.00 - 12.00 10(3)/mcL RBC 5.33 4.40 - 5.80 10(6)/mcL HEMOGLOBIN (HGB) 14.6 13.0 - 16.5 g/dL HEMATOCRIT (HCT) 44.2 38.0 - 50.0 % MCV 82.9 82.0 - 96.0 fL MCH 27.4 26.0 - 32.0 pg MCHC 33.0 31.0 - 36.0 g/dL PLATELET COUNT 58 (L) 140 - 440 10(3)/mcL RDW 12.6 11.8 - 15.5 % MPV 12.7 (H) 8.0 - 12.6 fL NEUTROPHILS 45.2 40.0 - 68.0 % LYMPHOCYTES 46.0 19.0 - 49.0 % MONOCYTES 7.6 3.0 - 13.0 % EOSINOPHILS 0.9 0.0 - 8.0 % BASOPHILS 0.3 0.0 - 1.0 % ABSOLUTE NEUTROPHILS 4.47 1.40 - 5.30 10(3)/mcL ABSOLUTE LYMPHOCYTES 4.54 (H) 0.90 - 3.30 10(3)/mcL ABSOLUTE MONOCYTES 0.75 0.10 - 0.90 10(3)/mcL ABSOLUTE EOSINOPHIL 0.09 0.00 - 0.50 10(3)/mcL ABSOLUTE BASOPHILS 0.03 0.00 - 0.10 10(3)/mcL NRBC PER 100 WBC 0 RESULTS ARE CONSISTENT WITH PERIPHERAL SMEAR REVIEW Yes RBC MORPHOLOGY CONSISTENT WITH INDICES Yes Imaging Results CT ABDOMEN PELVIS W/O CONTRAST (Final result) Result time 06/14/23 21:27:19 Final result by Steve Day MD (06/14/23 21:27:19) Impression: IMPRESSION: 1. Several nondilated fluid-filled loops of small bowel throughout the abdomen which can be seen with mild enteritis. 2. Subtle hepatic surface nodularity can be seen with early hepatic cirrhosis/chronic liver disease. No discrete focal hepatic lesions on this noncontrast CT examination. 3. Mild splenomegaly. Narrative: EXAM DESCRIPTION: CT ABDOMEN PELVIS W/O CONTRAST REASON FOR STUDY: constipation x 2-3 weeks with abdominal pressure and nausea. No surgery. TECHNIQUE: CT scan of the abdomen and pelvis performed without intravenous and without oral contrast using helical scanning technique. Reconstructed coronal and sagittal MPR images reviewed. All images stored on PACS. Automated exposure control was used as a dose optimization technique for this examination. COMPARISON: None available FINDINGS: The sensitivity for detection of visceral lesions is diminished without the use of intravenous contrast. LOWER CHEST: Mild scattered subsegmental atelectasis. Pneumatocele cysts and regions of cystic bronchiectasis/bronchiolectasis in the right lower lobe are present. No pleural effusion. Imaged portions of the heart are normal. LIVER: Normal size. Subtle hepatic surface nodularity can be seen with early hepatic cirrhosis/chronic liver disease. No discrete focal hepatic lesions on this noncontrast CT examination. GALLBLADDER: Normal. BILE DUCTS: No intrahepatic or extrahepatic ductal dilatation. SPLEEN: Mild splenomegaly measuring 14.2 cm in craniocaudal dimension. No focal lesions. PANCREAS: No identified cystic or solid masses. No significant calcifications. No adjacent inflammation or peripancreatic fluid collections. Pancreatic duct not dilated. ADRENALS: Normal. KIDNEYS/URINARY TRACT: No identified significant cystic or solid masses. No stones. No hydronephrosis or hydroureter. Urinary bladder is unremarkable. GI: The stomach is normal. There are several nondilated fluid-filled loops of small bowel throughout the abdomen which can be seen with mild enteritis. The appendix is normal. The colon is normal in course and caliber with no evidence of obstruction or inflammation. PERITONEUM: No ascites or free air. No lymphadenopathy. RETROPERITONEUM: No mass or adenopathy. REPRODUCTIVE: No significant abnormality. VASCULATURE: No abdominal aortic aneurysm. MUSCULOSKELETAL: No acute fractures or aggressive osseous lesions. Healed, reduced and internally fixated posterior right acetabular fracture. OTHER: Sequela of subcutaneous injection along ventral abdominal wall. THIS IS AN ELECTRONICALLY VERIFIED FINAL REPORT 06/14/2023 9:24 PM - Electronically signed by Steve Day M.D. AT: AT Report ID: [id number] Reading Location: [place] [address] Medical Decision Making Differential diagnosis: Constipation, bowel obstruction, atypical chest pain, anxiety, electrolyte abnormality Patient's blood pressure is elevated and also tachycardic on arrival, BP of 189/103 pulse of 107, states that he has not been taking his metoprolol for awhile now. I have reviewed interpreted his labs, EKG and CT scan of his abdomen pelvis Patient's CBC within normal limits. CMP within normal limits. EKG no acute ischemia or arrhythmia seen. High sensitivity troponin normal. Heart score: 1, low risk for any major acute coronary event, based on recommendation patient can bedischarged home. CT scan abdomen pelvis: IMPRESSION: 1. Several nondilated fluid-filled loops of small bowel throughout the abdomen which can be seen with mild enteritis. 2. Subtle hepatic surface nodularity can be seen with early hepatic cirrhosis/chronic liver disease. No discrete focal hepatic lesions on this noncontrast CT examination. 3. Mild splenomegaly. Patient re-examined at 9:45 p.m., states that he was able to go have a bowel movement but just verylittle while here in the emergency room. Since no obstruction is seen on the CT scan I have orderedfor MiraLax, Mag citrate and Colace to be given now. Advised patient to follow up with his PCP and referral to a liver specialist regarding his elevatedliver enzymes and early cirrhosis. Amount and/or Complexity of Data Reviewed Labs: ordered. Decision-making details documented in ED Course. Radiology: ordered and independent interpretation performed. Decision-making details documented in ED Course. Clinical Impression 1. Constipation, unspecified constipation type 2. Atypical chest pain 3. Elevated liver enzymes Disposition: Discharge After Treatment * Kristine Galindo RN - 06/14/2023 7:33 PM CDT Pt presents to ED room 5A for complaint of constipation for the past 2-3 weeks. Pt states he has been trying laxatives and enemas at home without relief. Pt states he did an enema [employer]. Pt complainingof abd pressure and nausea. Pt states he has not been eating enough lately. Pt placed in stretcher.VSS. No distress noted. Pt updated on plan of care. documented in this encounter Miscellaneous Notes * PatientPass Patient Instructions - Vijay Santana MD - 06/14/2023 7:54 PM CDT Images from the original note were not included. Patient Education Table of Contents Constipation, Adult To view videos and all your education online visit, [email or web address] or scan this QR code with your smartphone. Access to this content will in one year. Constipation, Adult Constipation is when a person has fewer than three bowel movements in a week, has difficulty havinga bowel movement, or has stools (feces) that are dry, hard, or larger than normal. Constipation maybe caused by an underlying condition. It may become worse with age if a person takes certain medicines and does not take in enough fluids. Follow these instructions at home: Eating and drinking Eat foods that have a lot of fiber, such as beans, whole grains, and fresh fruits and vegetables. Limit foods that are low in fiber and high in fat and processed sugars, such as fried or sweet foods. These include cook islander fries, hamburgers, cookies, candies, and soda. Drink enough fluid to keep your urine pale yellow. General instructions Exercise regularly or as told by your health care provider. Try to do 150 minutes of moderate exercise each week. Use the bathroom when you have the urge to go. Do not hold it in. Take [id number] and prescription medicines only as told by your health care provider. This includes any fiber supplements. During bowel movements: ? Practice deep breathing while relaxing the lower abdomen. ? Practice pelvic floor relaxation. Watch your condition for any changes. Let your health care provider know about them. Keep all follow-up visits as told by your health care provider. This is important. Contact a health care provider if: You have pain that gets worse. You have a fever. You do not have a bowel movement after 4 days. You vomit. You are not hungry or you lose weight. You are bleeding from the opening between the buttocks (anus). You have thin, pencil-like stools. Get help right away if: You have a fever and your symptoms suddenly get worse. You leak stool or have blood in your stool. Your abdomen is bloated. You have severe pain in your abdomen. You feel dizzy or you faint. Summary Constipation is when a person has fewer than three bowel movements in a week, has difficulty havinga bowel movement, or has stools (feces) that are dry, hard, or larger than normal. Eat foods that have a lot of fiber, such as beans, whole grains, and fresh fruits and vegetables. Drink enough fluid to keep your urine pale yellow. Take [id number] and prescription medicines only as told by your health care provider. This includes any fiber supplements. This information is not intended to replace advice given to you by your health care provider. Make sure you discuss any questions you have with your health care provider. Document Released: 2004-11-05 Document Updated: 2022-12-22 Document Reviewed: 2022-12-22 [employer] Patient Education ? 2023 [employer] documented in this encounter Plan of Treatment Not on file documented as of this encounter Procedures Procedure Name Priority Date/Time Associated Diagnosis Comments CT ABDOMEN PELVIS W/O CONTRAST Stat with Interpretation 06/14/2023 8:16 PM CDT TROPONIN I, HIGH SENSITIVITY (HSTRP) STAT 06/14/2023 8:13 PM CDT CBC WITH AUTO DIFFERENTIAL STAT 06/14/2023 8:13 PM CDT CMP (COMPREHENSIVE METABOLIC PANEL) STAT 06/14/2023 8:13 PM CDT COMPLETE BLOOD COUNT (CBC) WITH DIFF STAT 06/14/2023 8:13 PM CDT EKG 12 LEAD STAT 06/14/2023 7:56 PM CDT EKG SCAN 06/14/2023 12:00 AM CDT documented in this encounter Results * CT ABDOMEN PELVIS W/O CONTRAST (06/14/2023 8:16 PM CDT) Anatomical Region Laterality Modality Abdomen N/A Computed Tomogra phy 06/14/2023 9:24 PM CDT Impressions 06/14/2023 9:27 PM CDT IMPRESSION: 1. Several nondilated fluid-filled loops of small bowel throughout the abdomen which can be seen with mild enteritis. 2. Subtle hepatic surface nodularity can be seen with early hepatic cirrhosis/chronic liver disease. No discrete focal hepatic lesions on this noncontrast CT examination. 3. ??Mild splenomegaly. Narrative 06/14/2023 9:27 PM CDT EXAM DESCRIPTION: ?? CT ABDOMEN PELVIS W/O CONTRAST REASON FOR STUDY: ?? constipation x 2-3 weeks with abdominal pressure and nausea. No surgery. ?? TECHNIQUE: CT scan of the abdomen and pelvis performed without intravenous and ??without ??oral contrast using helical scanning technique. Reconstructed coronal and sagittal MPR images reviewed. All images stored on PACS. Automated exposure control was used as a dose optimization technique for this examination. COMPARISON: ?? None available FINDINGS: The sensitivity for detection of visceral lesions is diminished without the use of intravenous contrast. LOWER CHEST: ?? Mild scattered subsegmental atelectasis. ?? Pneumatocele cysts and regions of cystic bronchiectasis/bronchiolectasis in the right lower lobe are present. ??No pleural effusion. ??Imaged portions of the heart are normal. LIVER: ?? Normal size. ??Subtle hepatic surface nodularity can be seen with early hepatic cirrhosis/chronic liver disease. ??No discrete focal hepatic lesions on this noncontrast CT examination. GALLBLADDER: ??Normal. BILE DUCTS: ?? No intrahepatic or extrahepatic ductal dilatation. SPLEEN: ?? Mild splenomegaly measuring 14.2 cm in craniocaudal dimension. ??No focal lesions. PANCREAS: ?? No identified cystic or solid masses. ??No significant calcifications. No adjacent inflammation or peripancreatic fluid collections. Pancreatic duct not dilated. ADRENALS: ?? Normal. KIDNEYS/URINARY TRACT: ?? No identified significant cystic or solid masses. No stones. No hydronephrosis or hydroureter. ?Urinary bladder is unremarkable. GI: ?? The stomach is normal. ??There are several nondilated fluid-filled loops of small bowel throughout the abdomen which can be seen with mild enteritis. ??The appendix is normal. ??The colon is normal in course and caliber with no evidence of obstruction or inflammation. PERITONEUM: ?? No ascites or free air. ?? No lymphadenopathy. RETROPERITONEUM: ?? No mass or adenopathy. REPRODUCTIVE: ?? No significant abnormality. VASCULATURE: ?? No abdominal aortic aneurysm. MUSCULOSKELETAL: ?? No acute fractures or aggressive osseous lesions. Healed, reduced and internally fixated posterior right acetabular fracture. OTHER: ?? Sequela of subcutaneous injection ??along ventral abdominal wall. THIS IS AN ELECTRONICALLY VERIFIED FINAL REPORT 06/14/2023 9:24 PM - Electronically signed by ??Steve Day M.D. AT: AT D: ??06/14/2023 9:24 PM T: ??06/14/2023 9:24 PM Report ID: [id number] Reading Location: ??[id number] Procedure Note Steve Day MD - 06/14/2023 EXAM DESCRIPTION: CT ABDOMEN PELVIS W/O CONTRAST REASON FOR STUDY: constipation x 2-3 weeks with abdominal pressure and nausea. No surgery. TECHNIQUE: CT scan of the abdomen and pelvis performed without intravenous and without oral contrast using helical scanning technique. Reconstructed coronal and sagittal MPR images reviewed. All images stored on PACS. Automated exposure control was used as a dose optimization technique for this examination. COMPARISON: None available FINDINGS: The sensitivity for detection of visceral lesions is diminished without the use of intravenous contrast. LOWER CHEST: Mild scattered subsegmental atelectasis. Pneumatocele cysts and regions of cystic bronchiectasis/bronchiolectasis in the right lower lobe are present. No pleural effusion. Imaged portions of the heart are normal. LIVER: Normal size. Subtle hepatic surface nodularity can be seen with early hepatic cirrhosis/chronic liver disease. No discrete focal hepatic lesions on this noncontrast CT examination. GALLBLADDER: Normal. BILE DUCTS: No intrahepatic or extrahepatic ductal dilatation. SPLEEN: Mild splenomegaly measuring 14.2 cm in craniocaudal dimension. No focal lesions. PANCREAS: No identified cystic or solid masses. No significant calcifications. No adjacent inflammation or peripancreatic fluid collections. Pancreatic duct not dilated. ADRENALS: Normal. KIDNEYS/URINARY TRACT: No identified significant cystic or solid masses. No stones. No hydronephrosis or hydroureter. Urinary bladder is unremarkable. GI: The stomach is normal. There are several nondilated fluid-filled loops of small bowel throughout the abdomen which can be seen with mild enteritis. The appendix is normal. The colon is normal in course and caliber with no evidence of obstruction or inflammation. PERITONEUM: No ascites or free air. No lymphadenopathy. RETROPERITONEUM: No mass or adenopathy. REPRODUCTIVE: No significant abnormality. VASCULATURE: No abdominal aortic aneurysm. MUSCULOSKELETAL: No acute fractures or aggressive osseous lesions. Healed, reduced and internally fixated posterior right acetabular fracture. OTHER: Sequela of subcutaneous injection along ventral abdominal wall. THIS IS AN ELECTRONICALLY VERIFIED FINAL REPORT 06/14/2023 9:24 PM - Electronically signed by Steve Day M.D. AT: AT Report ID: [id number] Reading Location: [id number] IMPRESSION: 1. Several nondilated fluid-filled loops of small bowel throughout the abdomen which can be seen with mild enteritis. 2. Subtle hepatic surface nodularity can be seen with early hepatic cirrhosis/chronic liver disease. No discrete focal hepatic lesions on this noncontrast CT examination. 3. Mild splenomegaly. us Vijay Santana MD IM CT ORDERABLES Fi nal Result * (ABNORMAL) CBC with Auto Differential (06/14/2023 8:13 PM CDT) WBC 9.88 4.00 - 12.00 10(3)/mcL 06/14/2023 9:14 PM CDT [facility] RBC 5.33 4.40 - 5.80 10(6)/mcL 06/14/2023 9:14 PM CDT [facility] HEMOGLOBIN (HGB) 14.6 13.0 - 16.5 g/dL 06/14/2023 9:14 PM CDT [facility] HEMATOCRIT (HCT) 44.2 38.0 - 50.0 % 06/14/2023 9:14 PM CDT [facility] MCV 82.9 82.0 - 96.0 fL 06/14/2023 9:14 PM CDT [facility] MCH 27.4 26.0 - 32.0 pg 06/14/2023 9:14 PM CDT [facility] MCHC 33.0 31.0 - 36.0 g/dL 06/14/2023 9:14 PM CDT [facility] PLATELET COUNT 58(L) 140 - 440 10(3)/mcL 06/14/2023 9:14 PM CDT [facility] [facility] RDW 12.6 11.8 - 15.5 % 06/14/2023 9:14 PM CDT [facility] MPV 12.7(H) 8.0 - 12.6 fL 06/14/2023 9:14 PM CDT [facility] NEUTROPHILS 45.2 40.0 - 68.0 % 06/14/2023 9:14 PM CDT [facility] LYMPHOCYTES 46.0 19.0 - 49.0 % 06/14/2023 9:14 PM CDT [facility] MONOCYTES 7.6 3.0 - 13.0 % 06/14/2023 9:14 PM CDT [facility] EOSINOPHILS 0.9 0.0 - 8.0 % 06/14/2023 9:14 PM CDT [facility] BASOPHILS 0.3 0.0 - 1.0 % 06/14/2023 9:14 PM CDT [facility] ABSOLUTE NEUTROPHILS 4.47 1.40 - 5.30 10(3)/mcL 06/14/2023 9:14 PM CDT [facility] ABSOLUTE LYMPHOCYTES 4.54(H) 0.90 - 3.30 10(3)/[facility] 06/14/2023 9:14 PM CDT [facility] ABSOLUTE MONOCYTES 0.75 0.10 - 0.90 10(3)/[facility] 06/14/2023 9:14 PM CDT [facility] ABSOLUTE EOSINOPHIL 0.09 0.00 - 0.50 10(3)/[facility] 06/14/2023 9:14 PM CDT [facility] ABSOLUTE BASOPHILS 0.03 0.00 - 0.10 10(3)/[facility] 06/14/2023 9:14 PM CDT [facility] NRBC PER 100 WBC 0 06/14/19 9:14 PM CDT [facility] RESULTS ARE CONSISTENT WITH PERIPHERAL SMEAR REVIEW Yes 06/14/2023 9:14 PM CDT [facility] RBC MORPHOLOGY CONSISTENT WITH INDICES Yes 06/14/2023 9:14 PM CDT [facility] Blood Venipuncture / Unknown 06/14/2023 8:13 PM CDT 06/14/2023 8:32 PM CDT us Vijay Santana MD HEMATOLOGY ORDERABLE S Final Result [facility] [address] [place] [address] * TROPONIN I, HIGH SENSITIVITY (HSTRP) (06/14/2023 8:13 PM CDT) Pathologist [facility] TROPONIN I, HIGH SENSITIVITY- [place] <3 <=35 ng/L 06/14/2023 9:00 PM CDT [facility] Comment: High-sensitivity troponin I results are reported in ng/L making the result appear to be 1,000 times higher than the contemporary troponin I value which is reported in ng/ml. Results from [place]. Blood Venipuncture / Unknown 06/14/2023 8:13 PM CDT 06/14/2023 8:32 PM CDT us Vijay Santana MD CHEMISTRY ORDERABLES Final Result [facility] [address] [place] [address] * (ABNORMAL) CMP (06/14/2023 8:13 PM CDT) [facility] SODIUM 136 136 - 145 mmol/L 06/14/2023 8:56 PM CDT [facility] POTASSIUM 3.3(L) 3.5 - 5.1 mmol/L 06/14/2023 8:56 PM CDT [facility] CHLORIDE 99 98 - 107 mmol/L 06/14/2023 8:56 PM CDT [facility] CO2, VENOUS 26 22 - 30 mmol/L 06/14/2023 8:56 PM CDT [facility] ANION GAP 14.3 <18.0 mmol/L 06/14/2023 8:56 PM CDT [facility] GLUCOSE 106(H) 70 - 99 mg/dL 06/14/2023 8:56 PM CDT [facility] BUN 10 9 - 21 mg/dL 06/14/2023 8:56 PM CDT [facility] CREATININE, BLOOD 1.10 0.70 - 1.30 mg/dL 06/14/2023 8:56 PM CDT [facility] BUN/CREATININE RATIO 9(L) 12 - 20 ratio 06/14/2023 8:56 PM CDT [facility] TOTAL PROTEIN 8.6(H) 6.3 - 8.2 g/dL 06/14/2023 8:56 PM CDT [facility] ALBUMIN 4.5 3.5 - 5.0 g/dL 06/14/2023 8:56 PM CDT [facility] A/G RATIO 1.1 1.0 - 2.2 06/14/2023 8:56 PM CDT [facility] CALCIUM 9.6 8.7 - 10.5 mg/dL 06/14/2023 8:56 PM CDT [facility] T BILI 0.5 0.2 - 1.2 mg/dL 06/14/2023 8:56 PM CDT [facility] SGOT (AST) 109(H) 5 - 34 U/L 06/14/2023 8:56 PM CDT [facility] SGPT (ALT) 265(H) 0 - 55 U/L 06/14/2023 8:56 PM CDT [facility] ALKALINE PHOSPHATASE 88 40 - 150 U/L 06/14/2023 8:56 PM CDT [facility] GFR, ESTIMATED >60 >=60 06/14/2023 8:56 PM CDT [facility] Comment: Creatinine Clearance is the preferred criteria for selecting drug dose adjustments in renally impaired patients. ??The GFR is provided as additional pertinent clinical information. GFR is reported in mL/min/1.73 sq m. Calculation based on the Chronic Kidney Disease Epidemiology Collaboration (CKD- EPI) equation refit without adjustment for race. GFR, EST. >60 >=60 024 8:56 PM CDT [facility] GFR, EST. NONAFRICAN >60 >=60 06/14/2023 8:56 PM CDT [facility] Blood Venipuncture / Unknown 06/14/2023 8:13 PM CDT 06/14/2023 8:32 PM CDT us Vijay Santana MD CHEMISTRY ORDERABLES Final Result Performing Organization Address City/[facility]/ZIP Co de Phone Number [facility] [address] [facility] [place] [address] * EKG 12 LEAD (06/14/2023 7:56 PM CDT) Ventricular Rate 109 BPM EXTERNAL EKG Atrial Rate 109 BPM EXTERNAL EKG P-R Interval 158 ms EXTERNAL EKG QRS Duration 92 ms EXTERNAL EKG Q-T Duration 318 ms EXTERNAL EKG QTC CALCULATION 428 ms EXTERNAL EKG P [place] 47 degrees EXTERNAL EKG R [place] 23 degrees EXTERNAL EKG T [place] 17 degrees EXTERNAL EKG 06/14/2023 7:56 PM CDT Impressions EXTERNAL EKG - 06/15/2023 3:26 PM CDT Sinus tachycardia Otherwise normal ECG No previous ECGs available Confirmed by Toney Randhawa ([id number]) on 06/15/2023 3:26:39 PM Narrative Procedure Note Toney Randhawa MD - 06/15/2023 IMPRESSION: Sinus tachycardia Otherwise normal ECG No previous ECGs available Confirmed by Toney Randhawa ([id number]) on 06/15/2023 3:26:39 PM us Vijay Santana MD IMG ECG ORDERABLES F inal Result Performing Organization Address [facility] Co de Phone Number EXTERNAL EKG * EKG SCAN (06/14/2023 12:00 AM CDT) 06/14/2023 us Provider Scan IMG ECG ORDERABLES Final Result Performing Organization Address City/[facility] Co de Phone Number RESULTING AGENCY documented in this encounter Visit Diagnoses Diagnosis Constipation, unspecified constipation type- Primary Atypical chest pain Other chest pain Elevated liver enzymes Nonspecific elevation of levels of transaminase or lactic acid dehydrogenase (LDH) documented in this encounter Administered Medications Inactive Administered Medications - up to 3 most recent administrations Medication Order MAR Action Action Date Dose Rate Site docusate sodium (COLACE) capsule 200 mg 200 mg, Oral, ONCE, 1 dose, On Tue06/14/23 at 2230, Do not crush. Hold for loose stools (loose, liquid, mucoid, soft, watery stool that takes the shape of the container) or greater than 2 moderate or larger stools in 24hrs Given 06/14/2023 10:17 PM CDT 200 mg lactated ringers 1,000 mL IV bolus 1,000 mL, Intravenous, ONCE, 1 dose, On Tue06/14/23 at 2030, Administer over 0.5 Hours New Bag 06/14/2023 8:23 PM CDT 1,000 mL 2000 mL/hr magnesium citrate solution SOLN 296 mL 296 mL, Oral, ONCE, 1 dose, On Tue06/14/23 at 2230, Hold for loose stools (loose, liquid, mucoid, soft, watery stool that takes the shape of the container) or greater than 2 moderate or larger stools in 24hrs Given 06/14/2023 10:18 PM CDT 296 mL metoprolol tartrate (LOPRESSOR) tablet 50 mg 50 mg, Oral, ONCE, 1 dose, On Tue06/14/23 at 2100 Given 06/14/2023 8:26 PM CDT 50 mg polyethylene glycol (GLYCOLAX, MIRALAX) packet 17 g 17 g, Oral, ONCE, 1 dose, On Tue06/14/23 at 2230, Dilute dose in 120 - 240 mL of beverage.Hold for loose stools (loose, liquid, mucoid, soft, watery stool that takes the shape of the container) or greater than 2 moderate or larger stools in 24hrs Given 06/14/2023 10:17 PM CDT 17 g potassium chloride SA (KLORCON M) tablet 20 mEq 20 mEq, Oral, ONCE, 1 dose, On Tue06/14/23 at 2130, Do Not Crush Given 06/14/2023 9:43 PM CDT 20 mEq documented in this encounter Active and Recently Administered Medications Times are shown in CDT. Scheduled Medication Order 06/12/2023 06/13/2023 06/14/2023 docusate sodium (COLACE) capsule 200 mg (COMPLETED) 200 mg, Oral, ONCE, 1 dose, On Tue06/14/23 at 2230, Do not crush. Hold for loose stools (loose, liquid, mucoid, soft, watery stool that takes the shape of the container) or greater than 2 moderate or larger stools in 24hrs 2216 (Given - Provid er: Omar Stanton RN) lactated ringers 1,000 mL IV bolus (COMPLETED) 1,000 mL, Intravenous, ONCE, 1 dose, On Tue06/14/23 at 2030, Administer over 0.5 Hours 2022 (New Bag - Prov ider: Omar Stanton RN)2210 (Stopped - Provider: Omar Stanton RN) magnesium citrate solution SOLN 296 mL (COMPLETED) 296 mL, Oral, ONCE, 1 dose, On Tue06/14/23 at 2230, Hold for loose stools (loose, liquid, mucoid, soft, watery stool that takes the shape of the container) or greater than 2 moderate or larger stools in 24hrs 2217 (Given - Provid er: Omar Stanton RN) metoprolol tartrate (LOPRESSOR) tablet 50 mg (COMPLETED) 50 mg, Oral, ONCE, 1 dose, On Tue06/14/23 at 2100 2025 (Given - Provid er: Omar Stanton RN) polyethylene glycol (GLYCOLAX, MIRALAX) packet 17 g (COMPLETED) 17 g, Oral, ONCE, 1 dose, On Tue06/14/23 at 2230, Dilute dose in 120 - 240 mL of beverage.Hold for loose stools (loose, liquid, mucoid, soft, watery stool that takes the shape of the container) or greater than 2 moderate or larger stools in 24hrs 2216 (Given - Provid er: Omar Stanton RN) potassium chloride SA (KLORCON M) tablet 20 mEq (COMPLETED) 20 mEq, Oral, ONCE, 1 dose, On Tue06/14/23 at 2130, Do Not Crush 2142 (Given - Provid er: Omar Stanton RN) documented in this encounter Care Teams Tax Evaluator Relationship Specialty Start Date End Date Roland Knight, DOG SITTER, GUIDEMAN [address] [place] [address] [place] [address] PCP - General Advanced Practice Nurse 06/14/23 documented as of this encounter
--- OUTSIDE RECORDS SUMMARY | 2024-02-28 22:26 | XMS_ITS | Patient Health Summary ---
Author Organization [facility] Apprema Address [address] [place] [address] Care Team Providers Care Crime Investigator Special Agent Name Role Phone Unavailable Primary Care Provider Unavailabl e Note from [facility],non-owned Affiliates and Associated Physician Practices is amultiple site organization consisting of ambulatory clinics and hospital sitesin [place], [place] and [place]. This disclosure is being madepursuant to the Care Everywhere program and may not contain all information available regarding this patient. Last updated 17.[facility] Allergies * Contrast-Iodinated Agents For Ct/Other(Anaphylaxis) -High Criticality Medications * Be aware that medications may not be up to date on this document. Alwaysverify current medications with the patient. * citalopram (CELEXA) 40 MG tablet Take 40 mg by mouth daily. Active Problems Problem Noted Date Diagnosed Date Opiate withdrawal 06/19/2009 Opiate addiction 06/19/2009 Social History Tobacco Use Types Packs/Day Years [...] on file Sexual Orientation Not on file Last Filed Vital Signs Vital Sign Reading Time Taken Comments Blood Pressure 160/94 08/01/2023 1:15 AM CDT Pulse 53 08/01/2023 1:15 AM CDT Temperature 36.7 ??C (98 ??F) 07/31/2023 5:27 PM CDT Respiratory Rate 9 08/01/2023 1:00 AM CDT Oxygen Saturation 99% 08/01/2023 1:15 AM CDT Inhaled Oxygen Concentration - - Weight 127 kg (280 lb) 07/31/2023 5:27 PM CDT Height 185.4 cm (6' 1 ) 07/31/2023 5:27 PM CDT Body Mass Index 36.94 07/31/2023 5:27 PM CDT Procedures * CARDIAC EKG ORDER(Performed 08/01/2023) * TROPONIN-I HIGH SENSITIVE REFLEX 1HOUR(Performed 07/31/2023) * B-TYPE NATRIURETIC PEPTIDE(Performed 07/31/2023) * COMPREHENSIVE METABOLIC PANEL(Performed 07/31/2023) * CBC W AUTO DIFFERENTIAL(Performed 07/31/2023) * TROPONIN-I HIGH SENSITIVE BASELINE + 1HR(Performed 07/31/2023) * XR CHEST 2VW(Performed 07/31/2023) Performed for Other chest pain * EKG 12-LEAD(Performed 07/31/2023) Performed for Other chest pain * CARDIAC EKG ORDER(Performed 06/08/2019) * TROPONIN I(Performed 06/06/2019) * COMPREHENSIVE METABOLIC PANEL(Performed 06/06/2019) * EKG 12-LEAD(Performed 06/06/2019) Performed for SOB (shortness of breath) * XR CHEST 2VW(Performed 06/06/2019) Performed for SOB (shortness of breath) * CBC W AUTO DIFFERENTIAL(Performed 06/06/2019) * DRUG SCREEN URINE TRIAGE PANEL(Performed 06/18/2009) Performed for Drug Withdrawal (HCC) Results * CARDIAC EKG ORDER (08/01/2023 2:40 PM CDT) Only the most recent of2 resultswithin the time period is included. Narrative 08/01/2023 2:40 PM CDT Ordered by an unspecified provider. Scanned Document CARDIAC SERVICES ORD ERABLES * TROPONIN-I HIGH SENSITIVE REFLEX 1HOUR (07/31/2023 11:14 PM CDT) Pathologist [facility] Troponin I High Sensitive <3 <=35 ng/L 08/01/2023 12:02 AM CDT [facility] Delta Troponin I HS 08/01/2023 12:02 AM CDT [facility] Comment:Result exceeds linea rity range. A delta value is unable to be calculated. Blood BLOOD SPECIMEN / Unknown Venipuncture / Unknown 07/31/2023 11:14 PM CDT 07/31/2023 11:19 PM CDT Damir Tesfaye MD LAB - CHEMISTRY CEE BENDER [address] [address], [facility] [phone] * TROPONIN-I HIGH SENSITIVE BASELINE + 1HR (07/31/2023 9:49 PM CDT) [facility] Troponin I High Sensitive <3 <=35 ng/L 07/31/2023 10:27 PM T [facility] Blood BLOOD SPECIMEN / Unknown Venipuncture / Unknown 07/31/2023 9:49 PM CDT 07/31/2023 9:54 PM CDT Damir Tesfaye MD LAB - CHEMISTRY CEE BENDER [address] [address], [facility] [phone] * (ABNORMAL) CBC W AUTO DIFFERENTIAL (07/31/2023 9:49 PM CDT) Only the most recent of2 resultswithin the time period is included. [facility] WBC 9.1 4.0 - 10.7 x10E9/L 07/31/2023 10:05 PM [facility] RBC Count 5.19 4.30 - 5.80 x10E12/L 07/31/2023 10:05 PM [facility] Hemoglobin 14.9 13.3 - 17.5 g/dL 07/31/2023 10:05 PM [facility] Hematocrit 43.7 38.7 - 51.1 % 07/31/2023 10:05 PM [facility] MCV 84.2 80.0 - 98.0 fL 07/31/2023 10:05 PM [facility] MCH 28.7 26.7 - 33.6 pg 07/31/2023 10:05 PM [facility] MCHC 34.1 31.7 - 36.3 g/dL 07/31/2023 10:05 PM [facility] RDW-CV 12.7 11.3 - 14.8 % 07/31/2023 10:05 PM [facility] Platelet Count 145(L) 150 - 420 x10E9/L 07/31/2023 10:05 PM [facility] MPV 10.9 7.8 - 11.4 fL 07/31/2023 10:05 PM [facility] Neutrophil % 69.2 41.0 - 74.0 % 07/31/2023 10:05 PM [facility] Lymphocyte % 25.8 17.0 - 47.0 % 07/31/2023 10:05 PM [facility] Monocyte % 4.4 3.0 - 11.0 % 07/31/2023 10:05 PM [facility] Eosinophil % 0.2 0.0 - 7.0 % 07/31/2023 10:05 PM [facility] Basophil % 0.2 0.0 - 1.6 % 07/31/2023 10:05 PM [facility] Immature Granulocytes % 0.2 0.0 - 1.0 % 07/31/2023 10:05 PM [facility] Neutrophil Absolute 6.29 1.60 - 7.50 x10E9/L 07/31/2023 10:05 PM [facility] Lymphocyte Absolute 2.35 1.00 - 4.40 x10E9/L 07/31/2023 10:05 PM [facility] Monocyte Absolute 0.40 0.15 - 1.00 x10E9/L 07/31/2023 10:05 PM [facility] Eosinophil Absolute 0.02 0.00 - 0.60 x10E9/L 07/31/2023 10:05 PM CDT [facility] Basophil Absolute 0.02 0.00 - 0.13 x10E9/L 07/31/2023 10:05 PM CDT [facility] Blood BLOOD SPECIMEN / Unknown Venipuncture / Unknown 07/31/2023 9:49 PM CDT 07/31/2023 9:54 PM CDT Damir Tesfaye MD LAB - HEMATOLOGY ORD ERABLES Performing Organization Address City/State/[facility] Co de Phone Number [facility] [address] [place] [address], [facility] [phone] * B-TYPE NATRIURETIC PEPTIDE (07/31/2023 9:49 PM CDT) Pathologist [facility] BNP 25 <100 pg/mL 07/31/2023 10:25 PM CDT [facility] Comment: A decision threshold of 100 pg/mL has been demonstrated to provide the maximal combination of sensitivity, specificity and predictive value for the diagnosis of congestive heart failure (CHF). ??Virtually all patients with no evidence of CHF have BNP values less than 100 pg/mL. A BNP value greater than 100 pg/mL is consistent with the diagnosis of CHF in the appropriate clinical setting. In a study of 693 patients (male and female) with diagnosed CHF, the following values were determined based on the NYHA functional classification system: NYHA Functional Class ?Mean Valule (pg/mL) ? % >100 pg/mL ?I ?320 ? 58.1 ?II ? 432 ? 73.0 ?III ?656 ? 79.0 ?IV ?1635 ? 98.3 ? Blood BLOOD SPECIMEN / Unknown Venipuncture / Unknown 07/31/2023 9:49 PM CDT 07/31/2023 9:54 PM CDT Damir Tesfaye MD LAB - CHEMISTRY CEE BENDER Performing Organization Address [facility]/State/ZIP Co de Phone Number [facility] [address] [place] [address], [facility] [phone] * (ABNORMAL) COMPREHENSIVE METABOLIC PANEL (07/31/2023 9:49 PM CDT) Only the most recent of2 resultswithin the time period is included. BUN 8 7 - 26 mg/dL 07/31/2023 10:24 PM [facility] Creatinine 0.92 0.71 - 1.16 mg/dL 07/31/2023 10:24 PM [facility] Sodium 139 136 - 145 mmol/L 07/31/2023 10:24 PM [facility] Potassium 3.7 3.5 - 4.5 mmol/L 07/31/2023 10:24 PM [facility] Chloride 104 98 - 107 mmol/L 07/31/2023 10:24 PM [facility] CO2 25 22 - 29 mmol/L 07/31/2023 10:24 PM [facility] Glucose 90 70 - 115 mg/dL 07/31/2023 10:24 PM [facility] Calcium 9.1 8.4 - 10.2 mg/dL 07/31/2023 10:24 PM [facility] Protein Total 8.2 6.0 - 8.3 g/dL 07/31/2023 10:24 PM [facility] Albumin 4.0 3.4 - 5.0 g/dL 07/31/2023 10:24 PM [facility] Bilirubin Total 0.8 0.2 - 1.2 mg/dL 07/31/2023 10:24 PM [facility] Alkaline Phosphatase 61 40 - 150 U/L 07/31/2023 10:24 PM [facility] ALT 105(H) 5 - 55 U/L 07/31/2023 10:24 PM [facility] AST 63(H) 5 - 34 U/L 07/31/2023 10:24 PM [facility] Anion Gap 10 6 - 16 07/31/2023 10:24 PM [facility] BUN/Creatinine Ratio 9 7 - 23 07/31/2023 10:24 PM [facility] Osmolality Calculated 286 275 - 295 mOsm/kg 07/31/2023 10:24 PM [facility] Albumin/Globulin Ratio 1.0(L) 1.1 - 2.3 07/31/2023 10:24 PM [facility] eGFR by CKD-EPI >90 >=90 mL/min/1.7 3 m2 07/31/2023 10:24 PM [facility] Blood BLOOD SPECIMEN / Unknown Venipuncture / Unknown 07/31/2023 9:49 PM CDT 07/31/2023 9:54 PM CDT Damir Tesfaye MD LAB - CHEMISTRY CEE BENDER [facility] Organization Address City/State/ZIP Co de Phone Number [facility] [address] [place] [address], [facility] [phone] * XR CHEST 2VW (07/31/2023 6:48 PM CDT) Only the most recent of2 resultswithin the time period is included. Anatomical Region Laterality Modality Chest Radiographic Roberta ging 07/31/2023 6:52 PM CDT Narrative 07/31/2023 7:44 PM CDT PROCEDURE: ??XR CHEST 2VW, DATE/TIME OF EXAM: ??07/31/2023 6:48 PM, LOCATION [facility] INDICATION: R07.89: Other chest pain ADDITIONAL CLINICAL INFORMATION: Ordering Provider Reason For Exam: ??chest pain COMPARISON: X-ray chest 06/06/2019. TECHNIQUE: Frontal and lateral radiograph of the chest. FINDINGS/IMPRESSION: There is no focal consolidation, pleural effusion, or pneumothorax. The cardiomediastinal silhouette is normal. The visible bony thorax is intact. Report dictated by To George MD, (Cardiac/Vascular Sonographer). Jorge Salgado MD have personally reviewed and interpreted this examination/study. > Interpreting Provider: Jorge Aguilera MD on 07/31/2023 7:44 PM Procedure Note Jorge Aguilera MD - 07/31/2023 PROCEDURE: XR CHEST 2VW, DATE/TIME OF EXAM: 07/31/2023 6:48 PM, LOCATION [facility] INDICATION: R07.89: Other chest pain ADDITIONAL CLINICAL INFORMATION: Ordering Provider Reason For Exam: chest pain COMPARISON: X-ray chest 06/06/2019. TECHNIQUE: Frontal and lateral radiograph of the chest. FINDINGS/IMPRESSION: There is no focal consolidation, pleural effusion, or pneumothorax. The cardiomediastinal silhouette is normal. The visible bony thorax isintact. Report dictated by To George MD, (Cardiac/Vascular Sonographer). Jorge Salgado MD have personally reviewed and interpreted this examination/study. > Interpreting Provider: Jorge Aguilera MD on 07/31/2023 7:44 PM Vance Waller MD DIAGNOSTIC IMAG ING ORDERABLES * EKG 12-LEAD (07/31/2023 5:56 PM CDT) Only the most recent of2 resultswithin the time period is included. Ventricular Rate 99 BPM [facility] Atrial Rate 99 BPM [facility] P-R Interval 152 ms [facility] QRS Duration ms 86 ms [facility] Q-T Interval ms 338 ms [facility] QTC Calculation (Bezet) 433 ms [facility] Calculated P [place] 48 degrees [facility] Calculated R [place] 25 degrees [facility] Calculated T [place] 7 degrees [facility] Interpretation EKG NORMAL SINUS RHYTHM NORMAL ECG WHEN COMPARED WITH ECG OF 06-JUN-2019 14:27, QUESTIONABL E CHANGE IN QRS AXIS Confirmed by [place]IN ??WANDY COLLIER ([id number]) on 08/02/2023 11:47:10 PM [facility] 07/31/2023 5:56 PM CDT 08/02/2023 11:47 PM CDT Damir Tesfaye MD ECG ORDERABLES Performing Organization Address [facility] Co de Phone Number [facility] * TROPONIN I (06/06/2019 2:29 PM CDT) Troponin I 0.016 <0.032 ng/mL 06/06/2019 2:56 PM CDT [facility] Blood BLOOD SPECIMEN / Unknown Venipuncture / Unknown 06/06/2019 2:29 PM CDT 06/06/2019 2:29 PM CDT Brian Benítez DO LAB - CHEMISTRY CEE BENDER Performing Organization Address [facility] Co de Phone Number [facility] [address] [phone] * (ABNORMAL) DRUG SCREEN TRIAGE PANEL (06/18/2009 2:45 PM CDT) Phencyclidine Screen Urine Negative Negative ng/ml [facility] Benzodiazepines Screen Urine Negative Negative ng/ml [facility] Cocaine Screen Urine Negative Negative ng/ml [facility] Amphetamines Screen Urine Negative Negative ng/ml [facility] Cannabinoids Screen Urine Negative Negative ng/ml [facility] Opiate Screen Urine Presumptive Positive(AA) Negative ng/ml [facility] Barbiturates Screen Urine Negative Negative ng/ml [facility] URINE / Unknown 06/18/2009 2 :45 PM CDT 06/18/2009 3:33 PM CDT Rno Gonzalez MD LAB - URINE CHEMISTR Y ORDERABLES Performing Organization Address [facility]/ZIP Co de Phone Number [facility] [address] [place] [id number]
--- OUTSIDE RECORDS SUMMARY | 2024-02-28 22:26 | XMS_ITS | Clinical Summary ---
Author Organization [facility] Address [address] [address] Phone Care Team Providers Care Clerical Order Filler Name Role Phone Roland Knight APRN, CNP Primary Care Provid er Allergies Active Allergy Reactions Criticality Noted Date Comments Iodinated Contrast Media Anaphylaxis 06/14/2023 Medications senna-docusate (SENOKOT S) 8.6-50 MG Tablet Take 1 Tablet by mouth 2 times daily. 20 Tablet 06/14/2023 Active Social History Tobacco Use Types Packs/Day Years [...] Mass Index 36.62 06/14/2023 7:29 PM CDT Plan of Treatment Health Maintenance Due Date Last Done Comments Hepatitis C Virus (HCV) Screening 1987 Hepatitis B Immunization (1 of 3 - 19+ 3-dose series) 08/23/2006 Influenza Immunization (#1) 2023 SARS-COV-2 Immunization (2 - 2023- season) 2023 06/25/2020 Respiratory Syncytial Virus (RSV) Immunization (Adult) (1 - 1-dose 75+ series) 08/23/2062 DTaP/Tdap/Td Immunization Discontinued 2022, 10/20/2014 TdaP Immunization Completed 10/21/2022, 10/20/2014 Meningococcal Immunization (ACWY) Aged Out No longer eligible based on patient's age to complete this topic Pneumococcal Immunization Combined Aged Out No longer eligible based on patient's age to complete this topic Rotavirus Immunization Aged Out No lo nger eligible based on patient's age to complete this topic Insurance Care Teams Clerical Order Filler Relationship Specialty Start Date End Date Roland Knight, [employer]ARD[employer]NAG[employer] SPECIALIST, [employer] [address] [place] [id number] PCP - General Advanced Practice Nurse 06/14/23
--- OUTSIDE RECORDS SUMMARY | 2024-02-28 22:26 | XMS_ITS | Encounter Summary ---
Author Organization [facility] Health Address [facility] [place] [address] Care Team Providers Care Facilities Custodian Name Role Phone Unavailable Primary Care Provider Unavailabl e Reason for Visit * Reason Comments Chest Pain Pt. C/o L sided inte rmittent aching CP & SOB 05/31 x3-4 days, states he has been recently exerting himself working [employer], hx of arrythmia, compliant with metoprolol, VSS in triage Encounter Details Date Type Department Care Team (Late st Contact Info) Description 07/31/2023 7:01 PM CDT - 08/01/2023 1:29 AM CDT Emergency [facility] EMERGENCY DEPARTMENT [address] [place] [id number] Damir Tesfaye MD [address] [place] [address] Keila Baird MD [address] [place] [address] Other chest pain (Primary Dx); Secondary hypertension Discharge Disposition: Home or Self Care Social History Tobacco Use Types Packs/Day Years Used Date Smoking Tobacco: Never Smokeless Tobacco: Never Alcohol Use Standard Drinks/Week Comments [...] Mass Index 36.94 07/31/2023 5:27 PM CDT documented in this encounter Discharge Instructions * Discharge Instructions* Cory Torre MD - 08/01/2023 12:35 AM CDT Please follow up with your primary care provider for further evaluation of your chest pain. Take your previously prescribed medications as previously directed. If you have any worsening of condition please be reevaluated by a physician. documented in this encounter Medications at Time of Discharge Medication Sig Dispensed Refills Start Date End Date citalopram (CELEXA) 40 MG tablet Take 40 mg by mouth daily. documented as of this encounter ED Notes * Keila Baird MD - 07/31/2023 10:50 PM CDT Physician Transition Note 10:50 PM Care assumed from Dr. Tesfaye Briefly, this is a 37 year old male with Chief Complaint Patient presents with Chest Pain Pt. C/o L sided intermittent aching CP & SOB 05/31 x3-4 days, states he has been recently exerting himself working [employer], hx of arrythmia, compliant with metoprolol, VSS in triage Significant Findings: chest pain Workup (labs/Imaging) pending: labs Working Differential: atypical vs acs Current Plan/Dispo: pending labs Please refer to previous Attending note for further details. Vitals: 07/31/23 1727 07/31/23 1903 BP: 157/84 157/90 Pulse: 109 Resp: 16 Temp: 98 ??F (36.7 ??C) SpO2: 99% 99% Weight: 127 kg (280 lb) Height: 1.854 m (6' 1 ) ED Course Okay for discharge. 1. Other chest pain Keila Baird MD 07/31/2023 10:50 PM * Damir Tesfaye MD - 07/31/2023 7:12 PM CDT Emergency Medicine Attending Note Interval History : Chief Complaint Patient presents with Chest Pain Pt. C/o L sided intermittent aching CP & SOB 05/31 x3-4 days, states he has been recently exerting himself working [employer], hx of arrythmia, compliant with metoprolol, VSS in triage Brian Ellison is a 37 year old male with pmhx as below including unknown arhythmia who is presenting to the ED for chest pain. The patient states he was in [employer] working when started feeling what hedescribes as heat exhaustion. He reports feeling intermittent sweats, chills and SOB. The patient reports there was palpation associated with his chest pain. He states nothing makes the pain better or worse. While presenting to ED the patient states he is no longer having chest pain. He also denieshaving a cough, nausea, vomiting, LE swelling or new rashes. The patient reports he hasn't used meth or fentanyl in the past 1-2 yrs, and he denies drinking and tobacco use. The patient has no further complaints or modifying factors. Past Medical History: Diagnosis Date Depressive disorder, not elsewhere classified Generalized anxiety disorder No past surgical history on file. Social History Socioeconomic History Marital status: Spouse name: Not on file Number of children: Not on file Years of education: Not on file Highest education level: Not on file Occupational History Not on file Tobacco Use Smoking status: Never Smokeless tobacco: Never Substance and Sexual Activity Alcohol use: No Drug use: Yes Types: Heroin, IV, Methamphetamines Comment: fentanyl Sexual activity: Not on file Other Topics Concern Not on file Social History Narrative Not on file Social Determinants of Health Financial Resource Strain: Not on file Food Insecurity: Not on file Transportation Needs: Not on file Stress: Not on file Housing Stability: Not on file Allergies Allergen Reactions Iv Contrast [Contrast-Iodinated Agents For Ct/Other] Anaphylaxis Review of Systems: (+) positive ROS See above Physical Exam Vitals: 07/31/23 1727 07/31/23 1903 BP: 157/84 157/90 Pulse: 109 Resp: 16 Temp: 98 ??F (36.7 ??C) SpO2: 99% 99% Weight: 127 kg (280 lb) Height: 1.854 m (6' 1 ) Exam: Constitutional: Anxious appearing,well developed, Well nourished, No acute distress, Non-toxic appearance. HENT: Normocephalic, Atraumatic, Oropharynx moist Eyes: PERRL, EOMI, Conjunctiva normal, No discharge Neck- Normal range of motion, No tenderness, Supple, No stridor Respiratory: Normal breath sounds, No respiratory distress, no chest wall tenderness, Cardiovascular: Normal heart rate, Normal rhythm GI: Bowel sounds normal, Soft, No tenderness, Musculoskeletal: Intact distal pulses, No peripheral edema, No tenderness, Integument: Warm, Dry, No erythema Neurologic: Alert & oriented x 3, Normal motor function, Normal sensory function, No focal deficits noted. Medical Decision Makin37 year old male with above history brought for evaluation of chest pain. DDx: arhythmia vs ACS vs esophagitis vs other. I also externally reviewed previous records that I had access to within [facility] and noted relevant statements in my HPI. 1. Work Up - See lab and radiology orders 2. Therapy - See orders Amount and/or Complexity of Data Reviewed: Patient information was obtained primarily from the patient Data Review: (All Labs/Imaging/ECG, other diagnostics independently interpreted by me.) Amount and/or Complexity of Data Reviewed medical complexity: Triage notes and available nursing notes reviewed , Clinical lab tests: orderedand reviewed, Tests in the radiology section of CPT??: ordered and independent interpretation, and Independent visualization of images: yes The patient's Oxygen Saturation Monitor was interpreted by me. The reading was 99%. The patient wason RA at the time of the reading. This is interpreted as normal. - ECG: Interpreted by me: Date: 07/31/2023 Time: 5:26 p.m. R&R: Normal sinus rhythm with a ventricular rate of 99 bpm Additional findings: T-wave inversion lead III, no other T-wave abnormalities, no ST segment changes, no ischemic changes Ectopy: None - LABS: Labs Reviewed TROPONIN-I HIGH SENSITIVE BASELINE + 1HR CBC W AUTO DIFFERENTIAL COMPREHENSIVE METABOLIC PANEL B-TYPE NATRIURETIC PEPTIDE TROPONIN-I HIGH SENSITIVE REFLEX 1HOUR - IMAGING: XR CHEST 2VW Final Result PROCEDURE: XR CHEST 2VW, DATE/TIME OF EXAM: 07/31/2023 6:48 PM, LOCATION [facility] INDICATION: R07.89: Other chest pain ADDITIONAL CLINICAL INFORMATION: Ordering Provider Reason For Exam: chest pain COMPARISON: X-ray chest 06/06/2019. TECHNIQUE: Frontal and lateral radiograph of the chest. FINDINGS/IMPRESSION: There is no focal consolidation, pleural effusion, or pneumothorax. The cardiomediastinal silhouette is normal. The visible bony thorax is intact. Report dictated by To George MD, (Front Counter Clerk). I, Jorge Aguilera MD have personally reviewed and interpreted this examination/study. > Interpreting Provider: Jorge Aguilera MD on 07/31/2023 7:44 PM No results found. - MEDS: Medications 0.9% NaCl injection 3 mL (3 mL Intracatheter $ Given 07/31/232201) And 0.9% NaCl injection 1-10 mL (has no administration in time range) aspirin chew tablet 324 mg (324 mg Oral Not Administered 07/31/232156) nitroGLYCERIN (Nitrostat) tablet 0.4 mg (has no administration in time range) 0.9% NaCl IV bolus (1,000 mL Intravenous $ Bolus New Bag 07/31/232158) famotidine (Pepcid) injection 20 mg (20 mg Intravenous $ Given 07/31/232156) ondansetron (Zofran) injection 4 mg (4 mg Intravenous $ Given 07/31/232156) ED COURSE 9:40 p.m. Patient is hard stick per staff nuclear medicine technologist after multiple attempts at peripheral IV placement still unsuccessful, charge nurse aware. An ultrasound- guided IV being placed. Chest x-ray reassuring. No evidence of focal consolidation or abnormality. 10:00 p.m. transfer of care performed to Dr. Kam pending labs and reassessment. Pt was evaluated in conjunction with the resident/fellow, Dr. Grady Conclusion and Disposition: Acute problems: Refer to HPI Exacerbations of chronic problems: Refer to HPI Systemic issues: Refer to SDSD Consultants: Refer to ED Course Medication changes: Refer to ED Course Follow up: Refer to ED Course Orders and Medicine administered during this encounter: Orders Placed This Encounter XR CHEST 2VW TROPONIN-I HIGH SENSITIVE BASELINE + 1HR CBC W AUTO DIFFERENTIAL COMPREHENSIVE METABOLIC PANEL B-TYPE NATRIURETIC PEPTIDE TROPONIN-I HIGH SENSITIVE REFLEX 1HOUR OXYGEN WITHOUT TITRATION (ADULT) EKG 12-LEAD AND Linked Order Group 0.9% NaCl injection 3 mL 0.9% NaCl injection 1-10 mL aspirin chew tablet 324 mg nitroGLYCERIN (Nitrostat) tablet 0.4 mg famotidine (Pepcid) injection 20 mg ondansetron (Zofran) injection 4 mg 0.9% NaCl IV bolus Medications 0.9% NaCl injection 3 mL (3 mL Intracatheter $ Given 07/31/232201) And 0.9% NaCl injection 1-10 mL (has no administration in time range) aspirin chew tablet 324 mg (324 mg Oral Not Administered 07/31/232156) nitroGLYCERIN (Nitrostat) tablet 0.4 mg (has no administration in time range) 0.9% NaCl IV bolus (1,000 mL Intravenous $ Bolus New Bag 07/31/232158) famotidine (Pepcid) injection 20 mg (20 mg Intravenous $ Given 07/31/232156) ondansetron (Zofran) injection 4 mg (4 mg Intravenous $ Given 07/31/232156) Procedure done at this time No Ultrasound done at this time No Medications given in ED: Yes Medications prescribed: No Revised home medications: No Clinical Impression: 1. Other chest pain Disposition: BRIAN performed to Dr. Kam By signing my name below, I, Enedina Vazquez, attest that this documentation has been prepared under the direction and in the presence of Dr. Tesfaye. Signed: Cosmo Larry. Date: 07/31/2023. I, Dr. Tesfaye, personally performed the services described in this documentation. All medical record entries made by the rojelioibe were at my direction and in my presence. I have reviewed the chart andagree that the record reflects my personal performance and is accurate and complete. documented in this encounter Plan of Treatment Not on file documented as of this encounter Procedures Procedure Name Priority Date/Time Associated Diagnosis Comments CARDIAC EKG ORDER 08/01/2023 2:4 0 PM CDT TROPONIN-I HIGH SENSITIVE REFLEX 1HOUR Timed 07/31/2023 11:14 PM CDT TROPONIN-I HIGH SENSITIVE BASELINE + 1HR STAT 07/31/2023 9:49 PM CDT CBC W AUTO DIFFERENTIAL STAT 07/31/2023 9:49 PM CDT B-TYPE NATRIURETIC PEPTIDE STAT 07/31/2023 9:49 PM CDT COMPREHENSIVE METABOLIC PANEL STAT 07/31/2023 9:49 PM CDT XR CHEST 2VW STAT 07/31/2023 6:48 PM CDT Other chest pain EKG 12-LEAD STAT 07/31/2023 5:56 PM CDT Other chest pain documented in this encounter Results * CARDIAC EKG ORDER (08/01/2023 2:40 PM CDT) Narrative 08/01/2023 2:40 PM CDT Ordered by an unspecified provider. Scanned Document CARDIAC SERVICES ORD ERABLES * TROPONIN-I HIGH SENSITIVE REFLEX 1HOUR (07/31/2023 11:14 PM CDT) Troponin I High Sensitive <3 <=35 ng/L 08/01/2023 12:02 AM CDT [facility] Delta Troponin I HS 08/01/2023 12:02 AM CDT [facility] Comment:Result exceeds linea rity range. A delta value is unable to be calculated. Blood BLOOD SPECIMEN / Unknown Venipuncture / Unknown 07/31/2023 11:14 PM CDT 07/31/2023 11:19 PM CDT Damir Tesfaye MD LAB - CHEMISTRY CEE BENDER [facility] [address] [id number], [facility] [phone] * B-TYPE NATRIURETIC PEPTIDE (07/31/2023 9:49 PM CDT) BNP 25 <100 pg/mL 07/31/2023 10:25 PM CDT [facility] Comment: A decision threshold of 100 [...] - CHEMISTRY CEE BENDER Performing Organization Address [facility]/State/ZIP Co de Phone Number [facility] [address] [place] [address], [facility] [phone] * (ABNORMAL) COMPREHENSIVE METABOLIC PANEL (07/31/2023 9:49 PM CDT) BUN 8 7 - 26 mg/dL 07/31/2023 10:24 PM [facility] Creatinine 0.92 0.71 - 1.16 mg/dL 07/31/2023 10:24 PM [facility] Sodium 139 136 - 145 mmol/L 07/31/2023 10:24 PM [facility] Potassium 3.7 3.5 - 4.5 mmol/L 07/31/2023 10:24 PM [facility] Chloride 104 98 - 107 mmol/L 07/31/2023 10:24 PM [facility] CO2 25 22 - 29 mmol/L 07/31/2023 10:24 PM [facility] Glucose 90 70 - 115 mg/dL 07/31/2023 10:24 PM [facility] Calcium 9.1 8.4 - 10.2 mg/dL 07/31/2023 10:24 PM [facility] Protein Total 8.2 6.0 - 8.3 g/dL 07/31/2023 10:24 PM [facility] Albumin 4.0 3.4 - 5.0 g/dL 07/31/2023 10:24 PM [facility] Bilirubin Total 0.8 0.2 - 1.2 mg/dL 07/31/2023 10:24 PM [facility] Alkaline Phosphatase 61 40 - 150 U/L 07/31/2023 10:24 PM [facility] ALT 105(H) 5 - 55 U/L 07/31/2023 10:24 PM [facility] AST 63(H) 5 - 34 U/L 07/31/2023 10:24 PM [facility] Anion Gap 10 6 - 16 07/31/2023 10:24 PM [facility] BUN/Creatinine Ratio 9 7 - 23 07/31/2023 10:24 PM [facility] Osmolality Calculated 286 275 - 295 mOsm/kg 07/31/2023 10:24 PM [facility] Albumin/Globulin Ratio 1.0(L) 1.1 - 2.3 07/31/2023 10:24 PM [facility] eGFR by CKD-EPI >90 >=90 mL/min/1.7 3 m2 07/31/2023 10:24 PM [facility] Blood BLOOD SPECIMEN / Unknown Venipuncture / Unknown 07/31/2023 9:49 PM CDT 07/31/2023 9:54 PM CDT Damir Tesfaye MD LAB - CHEMISTRY EFRAINE [facility] Organization Address [facility]/State/ZIP Co de Phone Number [facility] [address] [place] [address], [facility] [phone] * (ABNORMAL) CBC W AUTO DIFFERENTIAL (07/31/2023 9:49 PM CDT) WBC 9.1 4.0 - 10.7 x10E9/L 07/31/2023 10:05 PM [facility] RBC Count 5.19 4.30 - 5.80 x10E12/L 07/31/2023 10:05 PM [facility] Hemoglobin 14.9 13.3 - 17.5 g/dL 07/31/2023 10:05 PM [facility] Hematocrit 43.7 38.7 - 51.1 % 07/31/2023 10:05 PM [facility] MCV 84.2 80.0 - 98.0 fL 07/31/2023 10:05 PM [facility] MCH 28.7 26.7 - 33.6 pg 07/31/2023 10:05 PM [facility] MCHC 34.1 31.7 - 36.3 g/dL 07/31/2023 10:05 PM [facility] RDW-CV 12.7 11.3 - 14.8 % 07/31/2023 10:05 PM [facility] Platelet Count 145(L) 150 - 420 x10E9/L 07/31/2023 10:05 PM [facility] MPV 10.9 7.8 - 11.4 fL 07/31/2023 10:05 PM [facility] Neutrophil % 69.2 41.0 - 74.0 % 07/31/2023 10:05 PM [facility] Lymphocyte % 25.8 17.0 - 47.0 % 07/31/2023 10:05 PM [facility] Monocyte % 4.4 3.0 - 11.0 % 07/31/2023 10:05 PM [facility] Eosinophil % 0.2 0.0 - 7.0 % 07/31/2023 10:05 PM [facility] Basophil % 0.2 0.0 - 1.6 % 07/31/2023 10:05 PM [facility] Immature Granulocytes % 0.2 0.0 - 1.0 % 07/31/2023 10:05 PM [facility] Neutrophil Absolute 6.29 1.60 - 7.50 x10E9/L 07/31/2023 10:05 PM [facility] Lymphocyte Absolute 2.35 1.00 - 4.40 x10E9/L 07/31/2023 10:05 PM [facility] Monocyte Absolute 0.40 0.15 - 1.00 x10E9/L 07/31/2023 10:05 PM [facility] Eosinophil Absolute 0.02 0.00 - 0.60 x10E9/L 07/31/2023 10:05 PM [facility] Basophil Absolute 0.02 0.00 - 0.13 x10E9/L 07/31/2023 10:05 PM CDT [facility] Blood BLOOD SPECIMEN / Unknown Venipuncture / Unknown 07/31/2023 9:49 PM CDT 07/31/2023 9:54 PM CDT Damir Tesfaye MD LAB - HEMATOLOGY ORD ERABLES Performing Organization Address City/[facility]/ZIP Co de Phone Number [address] [address], [facility] [phone] * TROPONIN-I HIGH SENSITIVE BASELINE + 1HR (07/31/2023 9:49 PM CDT) Troponin I High Sensitive <3 <=35 ng/L 07/31/2023 10:27 PM CDT [facility] Blood BLOOD SPECIMEN / Unknown Venipuncture / Unknown 07/31/2023 9:49 PM CDT 07/31/2023 9:54 PM CDT Damir Tesfaye MD LAB - CHEMISTRY ORDE [facility] Performing Organization Address City/[facility]/ZIP Co de Phone Number [address] [address], [facility] [phone] * XR CHEST 2VW (07/31/2023 6:48 PM CDT) Anatomical Region Laterality Modality Chest Radiographic Roberta ging 07/31/2023 6:52 PM CDT Narrative 07/31/2023 7:44 PM CDT PROCEDURE: ??XR CHEST 2VW, DATE/TIME OF EXAM: ??07/31/2023 6:48 PM, LOCATION [facility] INDICATION: R07.89: Other chest pain ADDITIONAL CLINICAL INFORMATION: Ordering Provider Reason For Exam: ??chest pain COMPARISON: X-ray chest 06/06/2019. TECHNIQUE: Frontal and lateral radiograph of the chest. FINDINGS/IMPRESSION: There is no focal consolidation, pleural effusion, or pneumothorax. The cardiomediastinal silhouette is normal. The visible bony thorax is intact. Report dictated by To George MD, (Front Counter Clerk). IJorge MD have personally reviewed and interpreted this examination/study. > Interpreting Provider: Jorge Aguilera MD on 07/31/2023 7:44 PM Procedure Note Jorge Aguilera MD - 07/31/2023 PROCEDURE: XR CHEST 2VW, DATE/TIME OF EXAM: 07/31/2023 6:48 PM, LOCATION [facility] INDICATION: R07.89: Other chest pain ADDITIONAL CLINICAL INFORMATION: Ordering Provider Reason For Exam: chest pain COMPARISON: X-ray chest 06/06/2019. TECHNIQUE: Frontal and lateral radiograph of the chest. FINDINGS/IMPRESSION: There is no focal consolidation, pleural effusion, or pneumothorax. The cardiomediastinal silhouette is normal. The visible bony thorax isintact. Report dictated by To George MD, (Front Counter Clerk). I, Jorge Aguilera MD have personally reviewed and interpreted this examination/study. > Interpreting Provider: Jorge Aguilera MD on 07/31/2023 7:44 PM Vance Waller MD DIAGNOSTIC IMAG ING ORDERABLES * EKG 12-LEAD (07/31/2023 5:56 PM CDT) Ventricular Rate 99 BPM [facility] MUSE Atrial Rate 99 BPM [facility] MUSE P-R Interval 152 ms [facility] MUSE QRS Duration ms 86 ms [facility] Q-T Interval ms 338 ms [facility] MUSE QTC Calculation (Bezet) 433 ms [facility] MUSE Calculated P [place] 48 degrees SL MUSE Calculated R [place] 25 degrees SL MUSE Calculated T [place] 7 degrees H MUSE Interpretation EKG NORMAL SINUS RHYTHM NORMAL ECG WHEN COMPARED WITH ECG OF 06-JUN-2019 14:27, QUESTIONABL E CHANGE IN QRS AXIS Confirmed by AUSTIN ??, WANDY ([id number]) on 08/02/2023 11:47:10 PM [facility] MUSE 07/31/2023 5:56 PM CDT 08/02/2023 11:47 PM CDT Damir Tesfaye MD ECG ORDERABLES [facility] MUSE documented in this encounter Visit Diagnoses Diagnosis Other chest pain- Primary Secondary hypertension documented in this encounter Administered Medications Inactive Administered Medications - up to 3 most recent administrations Medication Order MAR Action Action Date Dose Rate Site 0.9% NaCl injection 1-10 mL 1-10 mL, Intracatheter, PRN, Other, peripheral line flush, Starting on Tue07/31/23 at 1751, Until Tue08/01/23 at 0229, Flush peripheral IV catheter with 1-10 mL of normal saline before and after medications and prn to clear blood from the line or to verify patency. 0.9% NaCl injection 3 mL 3 mL, Intracatheter, EVERY 8 HOURS, First dose on Tue07/31/23 at 2200, Until Discontinued, Flush peripheral IV catheter with 3 mL of normal saline every 8 hours. $ Given 07/31/2023 10:02 PM CDT 3 mL 0.9% NaCl IV bolus 1,000 mL, at 983.61 mL/hr, Administer over 61 Minutes, ONCE, 1 dose, On Tue07/31/23 at 2215 $ Bolus New Bag 07/31/2023 9:59 PM CDT 1,000 mL 983.61 mL/hr acetaminophen (Tylenol) tablet 1,000 mg 1,000 mg, Oral, NOW, 1 dose, On Tue07/31/23 at 2215, Patient preference for lesser PRN pain meds may be honored when the patient requests a less strong medication, a lower dose, or a less intrusive route of administration when the lesser drug, dose and route have been ordered for the patient. This patient request must be documented in the MAR. If both oral and IV options are ordered for the same pain severity, give oral first unless patient cannot tolerate oral intake $ Given 08/01/2023 12:09 AM CDT 1,000 mg famotidine (Pepcid) injection 20 mg 20 mg, Intravenous, NOW, 1 dose, On Tue07/31/23 at 2115, Dilute with 0.9% NaCl, D5W solution, or SWI to a volume of 5 to 10 mL and administer over at least 2 minutes. $ Given 07/31/2023 9:57 PM CDT 20 mg lactated ringers IV bolus 1,000 mL, at 1,935.48 mL/hr, Administer over 31 Minutes, NOW, 1 dose, On 07/31/23 at 2330 $ New Bag/Syringe 08/01/2023 12:21 AM CDT 1,000 mL 1935.48 mL/hr metoprolol succinate XL 24hr (Toprol XL) tablet 25 mg 25 mg, Oral, NOW, 1 dose, On 07/31/23 at 2330, May cut in half but do not crush or chew $ Given 08/01/2023 12:09 AM CDT 25 mg ondansetron (Zofran) injection 4 mg 4 mg, Intravenous, ONCE, 1 dose, On 07/31/23 at 2130, Administer over 2 to 5 minutes. $ Given 07/31/2023 9:57 PM CDT 4 mg documented in this encounter Active and Recently Administered Medications Times are shown in CDT. Scheduled Medication Order 07/30/2023 07/31/2023 08/01/2023 0.9% NaCl injection 3 mL(Linked Group 1) 3 mL, Intracatheter, EVERY 8 HOURS, First dose on Tue07/31/23 at 2200, Until Discontinued, Flush peripheral IV catheter with 3 mL of normal saline every 8 hours. 2201 ($ Given - Provider: Augusto Wills RN) 0.9% NaCl IV bolus (COMPLETED) 1,000 mL, at 983.61 mL/hr, Administer over 61 Minutes, ONCE, 1 dose, On 07/31/23 at 2215 2159 ($ Bolus New Bag - Provider: Sim Umana RN) acetaminophen (Tylenol) tablet 1,000 mg (COMPLETED) 1,000 mg, Oral, NOW, 1 dose, On 07/31/23 at 2215, Patient preference for lesser PRN pain meds may be honored when the patient requests a less strong medication, a lower dose, or a less intrusive route of administration when the lesser drug, dose and route have been ordered for the patient. This patient request must be documented in the MAR. If both oral and IV options are ordered for the same pain severity, give oral first unless patient cannot tolerate oral intake 0009 ($ Given - Provider: Augusto Wills RN) famotidine (Pepcid) injection 20 mg (COMPLETED) 20 mg, Intravenous, NOW, 1 dose, On 07/31/23 at 2115, Dilute with 0.9% NaCl, D5W solution, or SWI to a volume of 5 to 10 mL and administer over at least 2 minutes. 2156 ($ Given - Provider: Sim Umana, GLADIS) lactated ringers IV bolus (COMPLETED) 1,000 mL, at 1,935.48 mL/hr, Administer over 31 Minutes, NOW, 1 dose, On Tue07/31/23 at 2330 0021 ($ New Bag/Syri nge - Provider: Augusto Wills, GLADIS)0046 (Stopped - Provider: Augusto Wills, GLADIS) metoprolol succinate XL 24hr (Toprol XL) tablet 25 mg (COMPLETED) 25 mg, Oral, NOW, 1 dose, On Tue07/31/23 at 2330, May cut in half but do not crush or chew 0009 ($ Given - Provider: Augusto Wills, GLADIS) ondansetron (Zofran) injection 4 mg (COMPLETED) 4 mg, Intravenous, ONCE, 1 dose, On Tue07/31/23 at 2130, Administer over 2 to 5 minutes. 2156 ($ Given - Provider: Sim Umana, GLADIS) PRN Medication Order 07/30/2023 07/31/2023 08/01/2023 0.9% NaCl injection 1-10 mL(Linked Group 1) 1-10 mL, Intracatheter, PRN, Other, peripheral line flush, Starting on Tue07/31/23 at 1751, Until Tue08/01/23 at 0229, Flush peripheral IV catheter with 1-10 mL of normal saline before and after medications and prn to clear blood from the line or to verify patency. Linked Groups Order Group 1: SALINE LOCK, INSERT AND MAINTAIN (CANCELED) Routine, CONTINUOUS, Starting on Tue07/31/23 at 1800, Until Specified, New collection, Task Completed: Yes And 0.9% NaCl injection 3 mLJump to med 3 mL, Intracatheter, EVERY 8 HOURS, First dose on Tue07/31/23 at 2200, Until Discontinued, Flush peripheral IV catheter with 3 mL of normal saline every 8 hours. And 0.9% NaCl injection 1-10 mLJump to med 1-10 mL, Intracatheter, PRN, Other, peripheral line flush, Starting on Tue07/31/23 at 1751, Until 08/01/23 at 0229, Flush peripheral IV catheter with 1-10 mL of normal saline before and after medications and prn to clear blood from the line or to verify patency. documented in this encounter
--- OUTSIDE RECORDS SUMMARY | 2024-02-28 22:26 | XMS_ITS | Encounter Summary ---
Author Organization [facility] Address [address] [place] [id number] Care Team Providers Care Drafter Structural Name Role Phone Unavailable Primary Care Provider Unavailabl e Reason for Visit * Reason Comments Shortness of Breath Pt ambulatory to the ER with complaints of shortness of breath and mild chest discomfort. Pt states that he has not been feeling well for approximately three weeks. Pt reports cough, and fever one week ago. Encounter Details Date Type Department Care Team (Late st Contact Info) Description 06/06/2019 12:01 PM CDT - 06/06/2019 6:04 PM CDT Emergency [facility] EMERGENCY DEPARTMENT [address] [place] [id number] Krzysztof Kam MD [address] [place] [address] OF EMERGENCY [place] [address] SOB (shortness of breath); Tachycardia; Diarrhea, unspecified type; Dehydration; Transaminitis; Hepatitis C virus infection without hepatic coma, unspecified chronicity; Viral syndrome Discharge Disposition: Home or Self Care Social [...] Sign Reading Time Taken Comments Blood Pressure 140/93 06/06/2019 12:45 PM CDT Pulse 99 06/06/2019 12:49 PM CDT Temperature 36.7 ??C (98.1 ??F) 06/06/2019 11:54 AM C DT Respiratory Rate 18 06/06/2019 11:54 AM CDT Oxygen Saturation 100% 06/06/2019 12:46 PM CDT Inhaled Oxygen Concentration - - Weight 99.8 kg (220 lb) 06/06/2019 11:54 AM CDT Height 182.9 cm (6') 06/06/2019 11:54 AM CDT Body Mass Index 29.84 06/06/2019 11:54 AM CDT documented in this encounter Discharge Instructions * Discharge Instructions* Brian Benítez DO - 06/06/2019 5:52 PM CDT You were seen in the ED for diarrhea and shortness of breath, we are currently in a pandemic with COVID-19 this presentation could be consistent with a covid- 19 infection or a viral syndrome. Your liver enzymes have been chronically elevated due to your hepatitis C, you will need to follow up with the liver doctor for possible treatment of your hepatitis C. Continue to drink plenty of fluids, tylenol for fever, return to the ED for increasing shortness of breath, chest pain, nausea, vomiting, abdominal pain. Stop taking adderall. Coronavirus concern -- confirmed or suspected You were evaluated in the emergency department with symptoms concerning for infection with coronavirus COVID-19. COVID-19 is a new strain of a common viral illness. While a diagnosis of coronavirus may feel scary, most cases of coronavirus are mild and resolve on their own without hospitalization. At this time, we feel that you are safe to go home. Steps to take at home to care for yourself: Get lots of rest and stay hydrated by drinking plenty of fluids. You can take acetaminophen (eg, Tylenol) for fevers or body aches. If you have questions, call your primary care doctor, contact your local health department, or visit the CDC???s website at cdc.gov/coronavirus. Speak with your primary care doctor within 2 weeks to discuss a plan to follow up. How to avoid spreading the virus to others: Stay at home, except if seeking medical care. Cover your coughs (with a tissue or in your elbow), and avoid touching your face unnecessarily. Wash your hands often (using soap and water for 20 seconds) to decrease your risk of infecting others. Try to avoid close contact with others in your home, including pets. If possible, use a different bathroom, and sleep in a separate room. If you must be near others, be sure to wear a face mask and wash your hands before interacting with them. Disinfect and avoid sharing commonly used items like phones, towels, and dishes with others. If a test was sent and is positive, your local health department will contact you. Follow their directions about when to go back to work or school. If you were not tested, you may stop quarantine 7 days after the start of your symptoms as long as your symptoms have been completely gone (without using medications) for at least 72 hours (3 days). If you or those around you are concerned about COVID-19, call your primary care doctor for advice about steps to take. Your health system may have specific locations to go for testing if you are not extremely sick. This lowers the risk that you could catch a virus or pass it on in the emergency department waiting room. If you are extremely sick and going to the emergency department, call ahead, so they can prepare for your visit. Speak to your doctor or come back to the emergency department for new or worsening symptoms, such as severe headache, confusion, chest pain, difficulty breathing, or vomiting to the point that you cannot drink fluids. Review medication inserts for side effects, and call the emergency department if you have any questions about the medications or care you received. For the [facility] COVID-19 Hot Line, please call for moreinformation. You may visit the [facility] website at [email or web address] for more information. * Attachments The following attachments cannot be sent through Care Everywhere. * Viral Syndrome (AfterCare(R) Instructions(ER/ED)) (Polish) * Shortness of Breath (AfterCare(R) Instructions(ER/ED)) (Polish) * Acute Diarrhea (AfterCare(R) Instructions(ER/ED)) (Polish) * Dehydration (AfterCare(R) Instructions(ER/ED)) (Polish) documented in this encounter Medications at Time of Discharge Medication Sig Dispensed Refills Start Date End Date citalopram (CELEXA) 40 MG tablet Take 40 mg by mouth daily. documented as of this encounter ED Notes * Krzysztof Kam MD - 06/06/2019 1:01 PM CDT Attending note: Chief complaint: Chief Complaint Patient presents with ??? Shortness of Breath Pt ambulatory to the ER with complaints of shortness of breath and mild chest discomfort. Pt statesthat he has not been feeling well for approximately three weeks. Pt reports cough, and fever one week ago. HPI: Brian Ellison is a 33 year old male who presents to the ER for shortness of breath and chest discomfort. Patient states he has been having stomachaches and diarrhea for weeks. Thinks there are worms. Fever 102 1 week ago. Some cough little sputum production for a day. + ShOB with exertion. 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 Took a dose of adderal today from a friend. Has a history of Hep C and never treated Past Medical History: Diagnosis Date ??? Depressive disorder, not elsewhere classified ??? Generalized anxiety disorder No past surgical history on file. Review of Systems GEN: Fever + EYES: no sudden changes in vision HEENT: no URI symptoms PULM: + ShOB, + Cough CHEST: Chest pain GI: no abdominal pain, no nausea, no vomiting : no UTI symptoms, no hematuria MSK: no joint pain NEURO: no headaches, no focal weakness/numbness ENDO: no heat/cold intolerance SKIN: no rashes Physical Exam: Vitals: 06/06/19 1154 06/06/19 1245 06/06/19 1246 06/06/19 1249 BP: 154/95 140/93 Pulse: (!) 113 99 Resp: 18 Temp: 98.1 ??F (36.7 ??C) SpO2: 100% 100% Weight: 99.8 kg (220 lb) Height: 1.829 m (6') General: Alert, no obvious distress Head: Normocephalic, no obvious abnormality Eyes: No acute lesions Mouth: Moist membranes Neck: No JVD, Supple Heart: RRR Lung: No respiratory distress, Equal breath sounds, CTA bilaterally Abdomen: Soft, bowel sounds normal, nondistended, all quadrants palpated with no significant tenderness, no HSM Extremities: No cyanosis, no significant peripheral edema Pulses: Equal pulses x 4 Skin: No acute rash Lymph: No lymphadenopathy Neuro: No facial droop, good tone Medical Decision Making: Problem list: 1. CP 2. ShOB 3. Abd pain 4. Diarrhea DDx: Viral syndrome, PTX, PNA, Chest wall pain, ACS Plan of Care: CBC, CMET, trop, EKG, CXR ED Course: Labs Reviewed CBC W AUTO DIFFERENTIAL - Abnormal; Notable for the following components: Result Value Lymphocyte Absolute 3.2 (*) All other components within normal limits COMPREHENSIVE METABOLIC PANEL - Abnormal; Notable for the following components: Protein Total 9.1 (*) ALT 257 (*) AST 102 (*) All other components within normal limits TROPONIN I - Normal XR CHEST 2VW Final Result EXAMINATION: XR CHEST 2VW HISTORY: R06.02: SOB (shortness of breath) COMPARISON: No prior study is available for comparison. FINDINGS: There is no focal consolidation, pleural effusion, or pneumothorax. The interstitial markings are at the upper limits of normal to mildly increased. The cardiomediastinal silhouette is normal. IMPRESSION: No pulmonary consolidation. Dictated by Sd Parry MD (Resident). I, Dr. ALEKSANDER MORTON MD have personally reviewed and interpreted this examination/study. This report was electronically signed by ALEKSANDER MORTON MD on 06/06/2019 4:18 PM . No results found. EKG Interpretation Indication: CP Findings: Rate: 107 Rhythm: Sinus tachy Grover: normal Conduction: normal ST segments: no acute change T waves: inversion in III Q waves: absent Interpretation: sinus tachycardia CXR- negative Walked patient for 1 min, no desat. Hr went up to 120. Then came down to 90 Patient tolerating PO Patient states he feels much better and would like to go home, I discussed possibility of COVID. Will need him to stay hydrated . Stop taking adderal. GI fellow contacted and will help arrange follow up for hep C and chronically elevated liver enzymes. Given discharge instruction for when to return and COVID instructions Final Clinical Impression: 1. SOB (shortness of breath) 2. Tachycardia 3. Diarrhea, unspecified type 4. Dehydration 5. Transaminitis 6. Hepatitis C virus infection without hepatic coma, unspecified chronicity 7. Viral syndrome Consult No Procedure done at this time No Ultrasound done at this time No Critical Care: 0 Krzysztof Kam MD 06/06/2019 1:01 PM * Zhao Kulkarin RN - 06/06/2019 12:50 PM CDT While staring patients IV he states that he believes that he is having nausea, vomiting, and cramping of abdomen due to worms in his stool. Pt states that he was recently released from [employer] and believes that he got worms there. * Joan Licea PA-C - 06/06/2019 11:56 AM CDT Brian Ellison [id number] [facility] EMERGENCY DEPARTMENT History Chief Complaint Patient presents with ??? Shortness of Breath Pt ambulatory to the ER with complaints of shortness of breath and mild chest discomfort. Pt statesthat he has not been feeling well for approximately three weeks. Pt reports cough, and fever one week ago. Brian Ellison is a 33-year-old male with no significant PMH who presents to the ED c/o SOB. Pt statesthat he has been having daily nausea, vomiting, and diarrhea for the past 1 month. He reports 5-6 episodes of diarrhea a day and about 2 episodes of vomiting daily. Poor appetite but getting adequatefluids. Questionable weight loss as pants are looser but he has not weighed himself. He reports a fever last week (TMAX 102F). He developed SOB yesterday and intermittent diffuse CP last night. CP isdescribed as tightness with occasional sharp pains with deep breathing. States these sxs are similar to prior h/o PNA. Pt's has several co-workers who were +COVID. His was sick about 3 weeks ago as well but has improved. No other complaints at this time. Past Medical History: Diagnosis Date ??? Depressive disorder, not elsewhere classified ??? Generalized anxiety disorder No past surgical history on file. No family history on file. Social History Socioeconomic History ??? Marital status: Spouse name: Not on file ??? Number of children: Not on file ??? Years of education: Not on file ??? Highest education level: Not on file Occupational History ??? Not on file Social Needs ??? Financial resource strain: Not on file ??? Food insecurity Worry: Not on file Inability: Not on file ??? Transportation needs Medical: Not on file Non-medical: Not on file Tobacco Use ??? Smoking status: Never Smoker ??? Smokeless tobacco: Never Used Substance and Sexual Activity ??? Alcohol use: No ??? Drug use: Yes Types: Heroin, IV Comment: fentanyl ??? Sexual activity: Not on file Lifestyle ??? Physical activity Days per week: Not on file Minutes per session: Not on file ??? Stress: Not on file Relationships ??? Social connections Talks on phone: Not on file Gets together: Not on file Attends adventism service: Not on file Active member of club or organization: Not on file Attends meetings of clubs or organizations: Not on file Relationship status: Not on file ??? Intimate partner violence Fear of current or ex partner: Not on file Emotionally abused: Not on file Physically abused: Not on file Forced sexual activity: Not on file Other Topics Concern ??? Not on file Social History Narrative ??? Not on file Review of Systems Review of Systems Constitutional: Negative for chills, diaphoresis, fever, malaise/fatigue and weight loss. HENT: Negative for congestion, ear discharge, ear pain, hearing loss, nosebleeds, sinus pain, sore throat and tinnitus. Eyes: Negative for blurred vision, double vision, photophobia, pain, discharge and redness. Respiratory: Negative for cough, hemoptysis, sputum production, shortness of breath, wheezing and stridor. Cardiovascular: Negative for chest pain, palpitations, orthopnea, claudication, leg swelling and PND. Gastrointestinal: Negative for abdominal pain, blood in stool, constipation, diarrhea, heartburn, melena, nausea and vomiting. Genitourinary: Negative for dysuria, flank pain, frequency, hematuria and urgency. Musculoskeletal: Negative for back pain, falls, joint pain, myalgias and neck pain. Skin: Negative for itching and rash. Neurological: Negative for dizziness, tingling, tremors, sensory change, speech change, focal weakness, seizures, loss of consciousness, weakness and headaches. Endo/Heme/Allergies: Negative for environmental allergies and polydipsia. Does not bruise/bleed easily. Psychiatric/Behavioral: Negative for depression, hallucinations, memory loss, substance abuse and suicidal ideas. The patient is not nervous/anxious and does not have insomnia. Physical Exam BP 140/93 Pulse 99 Temp 98.1 ??F (36.7 ??C) (Oral) Resp 18 Ht 1.829 m (6') Wt 99.8 kg (220 lb) SpO2 100% BMI 29.84 kg/m?? Physical Exam Vitals signs and nursing note reviewed. Constitutional: General: He is not in acute distress. Appearance: He is well-developed. He is not ill-appearing, toxic-appearing or diaphoretic. Comments: WM in NAD, speaking in full sentences. HENT: Head: Normocephalic. Eyes: Conjunctiva/sclera: Conjunctivae normal. Pupils: Pupils are equal, round, and reactive to light. Neck: Musculoskeletal: Normal range of motion and neck supple. Cardiovascular: Rate and Rhythm: Normal rate and regular rhythm. Heart sounds: Normal heart sounds. Pulmonary: Effort: Pulmonary effort is normal. Breath sounds: Normal breath sounds. No decreased breath sounds, wheezing, rhonchi or rales. Musculoskeletal: Normal range of motion. Skin: General: Skin is warm and dry. Neurological: Mental Status: He is alert and oriented to person, place, and time. Deep Tendon Reflexes: Reflexes are normal and symmetric. Comments: No focal motor or neuro deficits. Ambulatory with a steady gait. Psychiatric: Behavior: Behavior normal. Thought Content: Thought content normal. Judgment: Judgment normal. Medications Current Outpatient Medications Medication Sig Dispense Refill ??? citalopram (CELEXA) 40 MG tablet Take 40 mg by mouth daily. Procedures Procedures Lab/SPO2 Interpretation Hospital Encounter on 06/06/19 CBC W AUTO DIFFERENTIAL Result Value Ref Range WBC 8.0 3.5 - 10.5 10??3/uL RBC 5.38 4.30 - 5.70 10??6/uL Hemoglobin 15.8 13.5 - 17.5 g/dL Hematocrit 46.3 39.0 - 50.0 % MCV 86.1 81.0 - 97.0 fL MCH 29.4 28.0 - 34.0 pg MCHC 34.1 32.0 - 36.0 g/dL Platelet Count 267 150 - 400 10??3/uL RDW-SD 38.0 36.0 - 50.0 fL RDW-CV 12.2 11.2 - 14.8 % MPV 10.0 9.3 - 12.8 fL nRBC Absolute 0.00 0 10??3/uL nRBC Auto 0.0 0 /100 WBC Neutrophils % 51.3 35.0 - 70.0 % Lymphocytes % 39.7 19.7 - 55.1 % Monocytes % 7.8 3.0 - 15.0 % Eosinophils % 0.6 0.0 - 6.0 % Basophil % 0.5 0.0 - 1.5 % Neutrophils Absolute 4.1 1.6 - 7.0 10??3/uL Lymphocyte Absolute 3.2 (H) 0.8 - 2.9 10??3/uL Monocytes Absolute 0.62 0.14 - 0.66 10??3/uL Eosinophils Absolute 0.05 0.00 - 0.45 10??3/uL Basophils Absolute 0.04 0.00 - 0.06 10??3/uL Immature Granulocytes % 0.1 0.0 - 1.0 % XR CHEST 2VW (Results Pending) Progress Notes 1156: Initial eval at this time. Plan for CXR, CBC, CMP. Pt agreeable. 1352: Pt moved to room 3. Care transitioned to Dr. Kam. ED Course Clinical Impressions as of Jun 05 1354 SOB (shortness of breath) Medical Decision Making I have reviewed the: Previous Chart, Nursing Notes, Vitals. I have interpreted the following results: Labs, Oxygen Saturation. Orders Placed This Encounter ??? XR CHEST 2VW ??? CBC W AUTO DIFFERENTIAL ??? COMPREHENSIVE METABOLIC PANEL Associated attestation - Jovani Washburn MD - 06/06/2019 6:00 PM CDT 06/06/2019 18:00 For this patient encounter, I reviewed the ASSISTANT CHILD CARE TEACHER or PA documentation, procedures (if done), treatment plan, and medical decision making * Zhao Kulkarni RN - 06/06/2019 11:53 AM CDT Pt ambulatory to the ER with complaints of shortness of breath and mild chest discomfort. Pt statesthat he has not been feeling well for approximately three weeks. Pt reports cough, and fever one week ago. documented in this encounter Plan of Treatment Not on file documented as of this encounter Procedures Procedure Name Priority Date/Time Associated Diagnosis Comments CARDIAC EKG ORDER 06/08/2019 7:2 0 AM CDT TROPONIN I STAT 06/06/2019 2:29 PM CDT COMPREHENSIVE METABOLIC PANEL STAT 06/06/2019 2:29 PM CDT EKG 12-LEAD Routine 06/06/2019 2:27 PM CDT SOB (shortness of breath) XR CHEST 2VW STAT 06/06/2019 1:35 PM CDT SOB (shortness of breath) CBC W AUTO DIFFERENTIAL STAT 06/06/2019 12:33 PM CDT documented in this encounter Results * CARDIAC EKG ORDER (06/08/2019 7:20 AM CDT) Narrative 06/08/2019 7:20 AM CDT Ordered by an unspecified provider. Scanned Document CARDIAC SERVICES ORD ERABLES * TROPONIN I (06/06/2019 2:29 PM CDT) Troponin I 0.016 <0.032 ng/mL 06/06/2019 2:56 PM CDT [facility] Blood BLOOD SPECIMEN / Unknown Venipuncture / Unknown 06/06/2019 2:29 PM CDT 06/06/2019 2:29 PM CDT Brian Benítez DO LAB - CHEMISTRY [place] [id number], [facility] [phone] * (ABNORMAL) COMPREHENSIVE METABOLIC PANEL (06/06/2019 2:29 PM CDT) BUN 7 7 - 26 mg/dL 06/06/2019 2:50 PM [facility] Creatinine 0.9 0.6 - 1.2 mg/dL 06/06/2019 2:50 PM [facility] Sodium 142 136 - 145 mmol/L 06/06/2019 2:50 PM [facility] Potassium 3.8 3.5 - 4.5 mmol/L 06/06/2019 2:50 PM [facility] Chloride 103 98 - 107 mmol/L 06/06/2019 2:50 PM [facility] CO2 25 22 - 29 mmol/L 06/06/2019 2:50 PM [facility] Glucose 97 70 - 115 mg/dL 06/06/2019 2:50 PM [facility] Calcium 10.2 8.4 - 10.2 mg/dL 06/06/2019 2:50 PM [facility] Protein Total 9.1(H) 6.0 - 8.3 g/dL 06/06/2019 2:50 PM [facility] Albumin 4.9 3.4 - 5.0 g/dL 06/06/2019 2:50 PM [facility] Bilirubin Total 0.8 0.2 - 1.2 mg/dL 06/06/2019 2:50 PM [facility] Alkaline Phosphatase 60 40 - 150 Units/L 06/06/2019 2:50 PM [facility] ALT 257(H) 0 - 55 Units/L 06/06/2019 2:50 PM [facility] AST 102(H) 5 - 34 Units/L 06/06/2019 2:50 PM [facility] Anion Gap 18 8 - 18 06/06/2019 2:50 PM [facility] BUN/Creatinine Ratio 8 7 - 23 06/06/2019 2:50 PM [facility] Osmolality Calculated 292 270 - 300 mOsm/kg 06/06/2019 2:50 PM [facility] Albumin/Globulin Ratio 1.2 1.1 - 2.3 06/06/2019 2:50 PM [facility] eGFR >60 >60 mL/min/1.7 3 m2 06/06/2019 2:50 PM CDT [facility] Blood BLOOD SPECIMEN / Unknown Venipuncture / Unknown 06/06/2019 2:29 PM CDT 06/06/2019 2:29 PM CDT Joan Licea PA-C LAB - CHEMIS TRY ORDERABLES Performing Organization Address City/[facility] Co de Phone Number [address] [phone] * EKG 12-LEAD (06/06/2019 2:27 PM CDT) Ventricular Rate 107 BPM [facility] MUSE Atrial Rate 107 BPM [facility] MUSE P-R Interval 138 ms [facility] MUSE QRS Duration ms 78 ms [facility] MUSE Q-T Interval ms 326 ms [facility] MUSE QTC Calculation (Bezet) 435 ms [facility] MUSE Calculated P Grover 70 degrees [facility] MUSE Calculated R Grover 81 degrees [facility] MUSE Calculated T Grover 15 degrees [facility] MUSE Interpretation EKG SINUS TACHYCARDIA OTHERWISE NORMAL ECG NO PREVIOUS ECGS AVAILABLE Confirmed by Surya Rodarte ([id number]) on 06/06/2019 10:46:51 PM [facility] MUSE 06/06/2019 2:27 PM CDT 06/06/2019 10:46 PM CDT Brian Benítez ECG ORDERABLES Performing Organization Address [facility] Co de Phone Number [facility] MUSE * XR CHEST 2VW (06/06/2019 1:35 PM CDT) Anatomical Region Laterality Modality Chest Radiographic Roberta ging 06/06/2019 1:35 PM CDT Impressions 06/06/2019 4:18 PM CDT IMPRESSION: No pulmonary consolidation. Dictated by Sd Parry MD (Resident). I, Dr. ALEKSANDER MORTON MD have personally reviewed and interpreted this examination/study. This report was electronically signed by ALEKSANDER MORTON MD ??on 06/06/2019 4:18 PM . Narrative 06/06/2019 4:18 PM CDT EXAMINATION: XR CHEST 2VW HISTORY: R06.02: SOB (shortness of breath) COMPARISON: No prior study is available for comparison. FINDINGS: There is no focal consolidation, pleural effusion, or pneumothorax. The interstitial markings are at the upper limits of normal to mildly increased. The cardiomediastinal silhouette is normal. Procedure Note Aleksander Morton MD - 06/06/2019 EXAMINATION: XR CHEST 2VW HISTORY: R06.02: SOB (shortness of breath) COMPARISON: No prior study is available for comparison. FINDINGS: There is no focal consolidation, pleural effusion, or pneumothorax. The interstitial markings are at the upper limits of normal to mildly increased. The cardiomediastinal silhouette is normal. IMPRESSION: No pulmonary consolidation. Dictated by Sd Parry MD (Resident). I, Dr. ALEKSANDER MORTON MD have personally reviewed and interpreted this examination/study. This report was electronically signed by ALEKSANDER MORTON MD on06/06/2019 4:18 PM . Joan Licea PA-C DIAGNOSTIC I MAGING ORDERABLES * (ABNORMAL) CBC W AUTO DIFFERENTIAL (06/06/2019 12:33 PM CDT) WBC 8.0 3.5 - 10.5 10? 3 /uL 06/06/2019 12:47 PM [facility] RBC 5.38 4.30 - 5.70 10? 6 /uL 06/06/2019 12:47 PM [facility] Hemoglobin 15.8 13.5 - 17.5 g/dL 06/06/2019 12:47 PM [facility] Hematocrit 46.3 39.0 - 50.0 % 06/06/2019 12:47 PM [facility] MCV 86.1 81.0 - 97.0 fL 06/06/2019 12:47 PM [facility] MCH 29.4 28.0 - 34.0 pg 06/06/2019 12:47 PM [facility] MCHC 34.1 32.0 - 36.0 g/dL 06/06/2019 12:47 PM [facility] Platelet Count 267 150 - 400 10? 3 /uL 06/06/2019 12:47 PM [facility] RDW-SD 38.0 36.0 - 50.0 fL 06/06/2019 12:47 PM [facility] RDW-CV 12.2 11.2 - 14.8 % 06/06/2019 12:47 PM [facility] MPV 10.0 9.3 - 12.8 fL 06/06/2019 12:47 PM [facility] nRBC Absolute 0.00 0 10? 3 /uL 06/06/2019 12:47 PM [facility] nRBC Auto 0.0 0 /100 WBC 06/06/2019 12:47 PM [facility] Neutrophils % 51.3 35.0 - 70.0 % 06/06/2019 12:47 PM [facility] Lymphocytes % 39.7 19.7 - 55.1 % 06/06/2019 12:47 PM [facility] Monocytes % 7.8 3.0 - 15.0 % 06/06/2019 12:47 PM [facility] Eosinophils % 0.6 0.0 - 6.0 % 06/06/2019 12:47 PM [facility] Basophil % 0.5 0.0 - 1.5 % 06/06/2019 12:47 PM [facility] Neutrophils Absolute 4.1 1.6 - 7.0 10? 3 /uL 06/06/2019 12:47 PM [facility] Lymphocyte Absolute 3.2(H) 0.8 - 2.9 10? 3 /uL 06/06/2019 12:47 PM [facility] Monocytes Absolute 0.62 0.14 - 0.66 10? 3 /uL 06/06/2019 12:47 PM [facility] Eosinophils Absolute 0.05 0.00 - 0.45 10? 3 /uL 06/06/2019 12:47 PM [facility] Basophils Absolute 0.04 0.00 - 0.06 10? 3 /uL 06/06/2019 12:47 PM [facility] Immature Granulocytes % 0.1 0.0 - 1.0 % 06/06/2019 12:47 PM [facility] Blood BLOOD SPECIMEN / Unknown Venipuncture / Unknown 06/06/2019 12:33 PM CDT 06/06/2019 12:43 PM CDT Joan Licea PA-C LAB - HEMATO LOG[facility] ORDERAB[facility] [id number] [place] [address], [facility] [phone] documented in this encounter Visit Diagnoses Diagnosis SOB (shortness of breath) Shortness of breath Tachycardia Tachycardia, unspecified Diarrhea, unspecified type Dehydration Transaminitis Nonspecific elevation of levels of transaminase or lactic acid dehydrogenase (LDH) Hepatitis C virus infection without hepatic coma, unspecified chronicity Viral syndrome Unspecified viral infection, in conditions classified elsewhere and of unspecified site documented in this encounter Administered Medications Inactive Administered Medications - up to 3 most recent administrations Medication Order MAR Action Action Date Dose Rate Site lactated ringers IV bolus 1,000 mL, at 983.61 mL/hr, Administer over 61 Minutes, ONCE, 1 dose, On Tue06/06/19 at 1445 $ New Bag/Syringe 06/06/2019 2:45 PM CDT 1,000 mL 983.61 mL/hr documented in this encounter Active and Recently Administered Medications Times are shown in CDT. Scheduled Medication Order 06/04/2019 06/05/2019 06/06/2019 lactated ringers IV bolus (COMPLETED) 1,000 mL, at 983.61 mL/hr, Administer over 61 Minutes, ONCE, 1 dose, On Tue06/06/19 at 1445 1445 ($ New Bag/Syri nge - Provider: Anuja Ibrahim RN)1550 (Stopped - Provider: Anuja Ibrahim RN) documented in this encounter
--- OUTSIDE RECORDS SUMMARY | 2024-02-28 22:26 | XMS_ITS | Encounter Summary ---
Author Organization [facility] Address [address] [place] [address] Care Team Providers Care Sewer Pipe Offbearer Name Role Phone Unavailable Primary Care Provider Unavailabl e Reason for Visit * Reason Comments Drug Overdose PBIBEMS for accident al IV fentanyl drug overdose. EMS states patient was found down and unresponsive. EMS gave 4mg intranasal narcan and patient became responsive. Encounter Details Date Type Department Care Team (Late st Contact Info) Description 10/06/2017 7:12 PM CDT - 10/06/2017 8:24 PM CDT Emergency [facility] EMERGENCY DEPARTMENT [address] [place] [id number] Opiate overdose, accidental or unintentional, initial encounter ([facility]) Discharge Disposition: Home or Self Care Social [...] Sign Reading Time Taken Comments Blood Pressure 143/68 10/06/2017 5:28 PM CDT Pulse 89 10/06/2017 8:23 PM CDT Temperature 37.2 ??C (98.9 ??F) 10/06/2017 5:28 PM CD T Respiratory Rate 17 10/06/2017 5:28 PM CDT Oxygen Saturation 98% 10/06/2017 5:28 PM CDT Inhaled Oxygen Concentration - - Weight 81.6 kg (180 lb) 10/06/2017 5:28 PM CDT Height 182.9 cm (6') 10/06/2017 5:28 PM CDT Body Mass Index 24.41 10/06/2017 5:28 PM CDT documented in this encounter Discharge Instructions * Discharge Instructions* Joan Licea PA-C - 10/06/2017 8:14 PM CDT Narcotic Abuse WHAT YOU NEED TO KNOW: Narcotics are medicines used to decrease or take away severe pain. Narcotics may also be called opioids. Some common names of narcotics ordered by a doctor are codeine and morphine. Heroin is an illegal street drug that is made from morphine. DISCHARGE INSTRUCTIONS: Return to the emergency department if: ?? You are very drowsy. ?? Your speech is slurred. ?? You have trouble thinking, remembering things, or focusing. Contact your healthcare provider if: ?? You want help or information on how to stop using or abusing narcotics. Follow up with your healthcare provider as directed: Write down your questions so you remember to ask them during your visits. Narcotic intoxication usually lasts for several hours. You may have the following during or after you use narcotics: ?? Behavior or mood changes, such as a great feeling followed by the feeling that you do not care about anyone or anything ?? Trouble thinking, remembering things, or focusing ?? Small pupils ?? Feeling very drowsy ?? Slurred speech Narcotic withdrawal occurs if you stop using narcotics after using them heavily over a period of time. Signs and symptoms may begin within minutes or days and continue for days or even months: ?? Depression and anxiety ?? Nausea or vomiting ?? Muscle aches ?? Watery eyes or runny nose ?? Large pupils ?? Sweating or goosebumps on your skin ?? Diarrhea ?? Fever ?? Trouble sleeping How narcotics can harm a woman and her baby: ?? Tell your healthcare provider right away if you are trying to get or you are and you are using narcotics. Your doctor may suggest other medicines to control pain and prevent withdrawal. If you go through withdrawal while , you may miscarry your baby, or he may be stillborn. He may be very small and have other medical problems. ?? When your baby is born, he may show signs of withdrawal. This includes unexpected weight loss, poor feeding, and more crying than normal. Your baby may also have a fever, vomit, and have diarrhea.He may also have learning problems or other health issues when he gets older. If you have a baby and you are using narcotics, you may have trouble caring for your baby. Narcotics may be passed to your baby through breast milk. Talk to your healthcare provider before your baby if you are using narcotics. For support and more information: ?? Substance Abuse and Mental Health Services Administration [address] [place] [address] Web Address: http://www.[facility].gov ?? National [place] on Drug Abuse [address] [place], [address] [place] [address] Phone: Web Address: www.[facility].gov ?? 2017 [employer] Information is for End User's use only and may not be sold, redistributed or otherwise used for commercial purposes. All illustrations and images included in CareNotes?? are the copyrighted property of [employer]. or [employer]. The above information is an braid maker only. It is not intended as medical advice for individual conditions or treatments. Talk to your doctor, nurse or pharmacist before following any medical regimen to see if it is safe and effective for you. documented in this encounter Medications at Time of Discharge Medication Sig Dispensed Refills Start Date End Date citalopram (CELEXA) 40 MG tablet Take 40 mg by mouth daily. documented as of this encounter Progress Notes * Lillie Huang MSW - 10/06/2017 6:04 PM CDT SW received a referral from RN to assist with substance abuse treatment. SW met with pt to discuss options for treatment. Pt met criteria and was in agreement with referral to [facility] (Opioid Overdose Project). SW contacted [facility] and control and recovery combat rescue will meet with pt in ED prior to discharge to assistwith referral for outpatient treatment. No additional SW needs noted at this time. documented in this encounter ED Notes * Nikkie Sanchez RN - 10/06/2017 8:22 PM CDT D/c papers received and pt is found and discharged. * Nikkie Sanchez RN - 10/06/2017 8:20 PM CDT Pt asks other RN to see me because he wants to leave. I speak with pt. A&OX4. Walks with steadygait. I inform PA that he states he has received all the info that he needs and would like to leave. She asks that he give her 20 minutes. He states he cannot wait. I inform PA. Pt walks with steady gait to ED exit. * Joan Licea PA-C - 10/06/2017 8:14 PM CDT Provider contact with the patient: 10/06/2017 20:14 Brian Ellison [id number] [facility] EMERGENCY DEPARTMENT History Chief Complaint Patient presents with ??? Drug Overdose PBIBEMS for accidental IV fentanyl drug overdose. EMS states patient was found down and unresponsive. EMS gave 4mg intranasal narcan and patient became responsive. HPI Comments: Pt BIBEMS after accidental IV fentanyl drug overdose. Per EMS, patient was found downand unresponsive. He was given 4mg [place] narcan and became responsive. Pt has not complaints at this time. Pt states he has not used in over a year. Has required narcan in the past. Interested in getting help today. Past Medical History: Diagnosis Date ??? Depressive disorder, not elsewhere classified ??? Generalized anxiety disorder No past surgical history on file. No family history on file. Social History Social History ??? Marital status: Single Spouse name: N/A ??? Number of children: N/A ??? Years of education: N/A Occupational History ??? Not on file. Social History Main Topics ??? Smoking status: Never Smoker ??? Smokeless tobacco: Never Used ??? Alcohol use No ??? Drug use: Yes Special: Heroin, IV Comment: fentanyl ??? Sexual activity: Not on file Other Topics Concern ??? Not on file Social History Narrative Allergies Allergen Reactions ??? Iv Contrast [Contrast-Iodinated Agents For Ct/Other] Anaphylaxis Review of Systems Review of Systems Constitutional: [...] and polydipsia. Does not bruise/bleed easily. Psychiatric/Behavioral: Positive for substance abuse (IV heroin). Negative for depression, hallucinations, memory loss and suicidal ideas. The patient is not nervous/anxious and does not have insomnia. Physical Exam BP 143/68 Pulse (!) 118 Temp 98.9 ??F (37.2 ??C) Resp 17 Ht 1.829 m (6') Wt 81.6 kg (180 lb) SpO2 98% BMI 24.41 kg/m2 Physical Exam Constitutional: He is oriented to person, place, and time. He appears well- developed and well-nourished. No distress. HENT: Head: Normocephalic. Mouth/Throat: Oropharynx is clear and moist. Eyes: Conjunctivae and EOM are normal. Pupils are equal, round, and reactive to light. Neck: Normal range of motion. Neck supple. Cardiovascular: Normal rate, regular rhythm, normal heart sounds and intact distal pulses. No murmur heard. Pulmonary/Chest: Effort normal and breath sounds normal. No respiratory distress. He has no wheezes. He has no rales. He exhibits no tenderness. Abdominal: Soft. Bowel sounds are normal. He exhibits no distension. There is no tenderness. Musculoskeletal: Normal range of motion. Neurological: He is alert and oriented to person, place, and time. No cranial nerve deficit. Ambulatory with a steady gait. Skin: Skin is warm and dry. Psychiatric: He has a normal mood and affect. His behavior is normal. Judgment and thought content normal. Nursing note and vitals reviewed. Medications Current Outpatient Prescriptions Medication Sig Dispense Refill ??? citalopram (CELEXA) 40 MG tablet Take 40 mg by mouth daily. Procedures Procedures ECG Interpretation ECG Interpretation Lab/SPO2 Interpretation No results found for this visit on 10/06/17. No orders to display Progress Notes 1804: Pt seen by Lillie (RICKY) who will be assisting the pt with substance abuse treatment. Contacted [facility] for referral to Opioid Overdose Project. 2000: [facility] coordinator with patient discussing follow up plans. Pt given free [place] Narcan to take home. 2020: Per RN, pt requesting to leave. Repeat vitals stable. Pt tolerating PO. A&Ox4, ambulatorywith a steady gait. Stable for discharge at this time. ED Course ED Course Medical Decision Making No orders of the defined types were placed in this encounter. Clinical Impression Final diagnoses: Opiate overdose, accidental or unintentional, initial encounter * Oneil Pierre RN - 10/06/2017 5:33 PM CDT Patient requesting resources for drug rehab. VIANEY Moreira notified. documented in this encounter Plan of Treatment Not on file documented as of this encounter Visit Diagnoses Diagnosis Opiate overdose, accidental or unintentional, initial encounter (HCC) documented in this encounter
--- OUTSIDE RECORDS SUMMARY | 2024-02-28 22:26 | XMS_ITS | Clinical Summary ---
Author Organization [facility] [employer] Address [address] [place] [address] Care Team Providers Care Thread Puller Name Role Phone Unavailable Primary Care Provider Unavailabl e Source Comments [facility] [employer],non-owned Affiliates and Associated Physician Practices is amultiple site organization consisting of ambulatory clinics and hospital sitesin [place], [place], [place] and [place]. This disclosure is being madepursuant to the Care Everywhere program and may not contain all information available regarding this patient. Last updated 17.[facility] [employer] Allergies Active Allergy Reactions Criticality Noted Date Comments Contrast-Iodinated Agents For Ct/Other Anaphylaxis High 10/06/2017 Medications * Be aware that medications may not be up to date on this document. Alwaysverify current medications with the patient. Medication Sig Dispensed Refills Start Date End Date Status citalopram (CELEXA) 40 MG tablet Take 40 mg by mouth daily. Active Active Problems Problem Noted Date Diagnosed Date [...] Mass Index 36.94 07/31/2023 5:27 PM CDT Plan of Treatment Health Maintenance Due Date Last Done Comments HIV SCREENING 08/23/2002 DTAP/TDAP/TD VACCINES (1 - Tdap) 08/23/2006 HEPATITIS B VACCINE (1 of 3 - 19+ 3-dose series) 08/23/2006 DEPRESSION SCREENING 02/21/2023 COVID-19 VACCINE (1 - 2023-2 5 season) 2023 INFLUENZA VACCINE (#1) 2023 ZOSTER VACCINE (1 of 2) 08/23/2037 HEPATITIS C SCREENING Completed 06/06/2019 HIB VACCINE Aged Out No longer eligi ble based on patient's age to complete this topic HPV VACCINE Aged Out No longer eligi ble based on patient's age to complete this topic MENINGOCOCCAL VACCINE Aged Out No clemente bhavna eligible based on patient's age to complete this topic PNEUMOCOCCAL VACCINE Aged Out No long er eligible based on patient's age to complete this topic Advance Directives * Full Code (Latest Code Status on File) Date Activated Date Inactivated Comments 06/18/2009 4:40 PM 06/21/2009 7:33 AM
--- OUTSIDE RECORDS SUMMARY | 2024-02-28 22:26 | XMS_ITS | Referral Summary ---
Author Organization [facility] [employer] Address [address] [place] [address] Care Team Providers Care Traffic Maintenance Officer Name Role Phone Unavailable Primary Care Provider Unavailabl e Source Comments [facility] [employer],non-owned Affiliates and Associated Physician Practices is amultiple site organization consisting of ambulatory clinics and hospital sitesin [place], [place], [place] and [place]. This disclosure is being madepursuant to the Care Everywhere program and may not contain all information available regarding this patient. Last updated 17.[facility] [employer] Allergies Active Allergy Reactions Criticality Noted Date [...] 07/31/2023 5:27 PM CDT Plan of Treatment Not on file Advance Directives * Full Code (Latest Code Status on File) Date Activated Date Inactivated Comments 06/18/2009 4:40 PM 06/21/2009 7:33 AM
--- OUTSIDE RECORDS SUMMARY | 2024-02-28 22:26 | XMS_ITS | CONTINUITY OF CARE DOCUMENT ---
Author Name artemio ulloa Address Unknown Organization [facility] Address [address] [place] [address] [address] [place] [address] Phone [phone] Care Team Providers Care Etl Informatica Developer Name Role Phone Jus Arango MD Unavailable [phone] TALYA PIMENTEL MD Unavailable [phone] TALYA PIMENTEL MD Unavailable INSURANCE PROVIDERS Payer name Policy type / Coverage type [place] red democrat ID [employer] BENEFITS [employer] (powering [employer]) insurance [employer] [id number]
--- OUTSIDE RECORDS SUMMARY | 2024-02-28 22:26 | XMS_ITS | Encounter Summary ---
Author Organization [employer] Care Team Providers Care Sewage Disposal Engineer Name Role Phone Roland Knight APRN, CNP Primary Care Provid er Encounter Details Date Type Department Care Team (Latest Contact Info) Description 06/14/2023 Travel Social History Tobacco Use Types Packs/Day Years Used Date Smoking Tobacco: Unknown Sex and Gender Information Value Date Recorded Sex Assigned at Not on file Legal Sex Male 12:36 AM CDT Gender Identity Not on file Sexual Orientation Not on file documented as of this encounter Plan of Treatment Not on file documented as of this encounter Visit Diagnoses Not on filedocumented in this encounter Care Teams Sewage Disposal Engineer Relationship Specialty Start Date End Date Roland Knight APRN, MANNIE [address] [facility] [place] [address] PCP - General Advanced Practice Nurse 06/14/23 documented as of this encounter
--- OUTSIDE RECORDS SUMMARY | 2024-02-28 22:27 | XMS_ITS | Encounter Summary ---
Author Organization [facility] Address [address] [place] [address] Care Team Providers Care Statistical Programmer Analyst Name Role Phone Unavailable Primary Care Provider Unavailabl e Encounter Details Date Type Department Care Team (Late st Contact Info) Description 11/22/2023 External Device Data [place] ABSTRACTION Provider, Abstract NO ADDRESS ON FILE Social History Tobacco Use Types Packs/Day Years Used Date Smoking Tobacco: Never Smokeless Tobacco: Never Alcohol Use Standard Drinks/Week Comments Yes 0 (1 standard drink = 0.6 oz pur e alcohol) Sex and Gender Information Value Date Recorded Sex Assigned at Not on file Gender Identity Not on file Sexual Orientation Not on file documented as of this encounter Plan of Treatment Upcoming Encounters Date Type Department Care Team (Late st Contact Info) Description 03/27/2024 2:45 PM SHIP JOINER Office Visit [facility] Oncology and Hematology - [place] [address] [facility] [address] [place] [address] True Wilson MD [address] [facility] [address] [place] [address] documented as of this encounter Visit Diagnoses Not on filedocumented in this encounter Additional Health Concerns Assessment Noted Time PHQ-9 Depression Total Score: 2 09/28/19 24 3:00 PM CDT documented as of this encounter
--- OUTSIDE RECORDS SUMMARY | 2024-02-28 22:27 | XMS_ITS | Clinical Summary ---
Author Organization [facility] Address [address] [place] [address] Care Team Providers Care Marine Fitter Name Role Phone Unavailable Primary Care Provider Unavailabl e Allergies Active Allergy Reactions Criticality Noted Date Comments Iodinated Contrast Media Anaphylaxis High 02/26/2020 Medications Medication Sig Dispensed Refills Start Date End Date Status dextroamphetamine- amphetamine (ADDERALL) 20 mg tabletIndications: Anxiety state,Attention deficit disorder (ADD) in adult Take one tablet early afternoon 30 Tablet 02/05/2021 Active eszopiclone (LUNESTA) 3 mg Tablet Take 3 mg by mouth nightly as needed for Insomnia. Active dextroamphetamine- amphetamine (Mydayis) 50 mg capsule, ER triphasic 24 hr Take 50 mg by mouth daily. Active lumateperone (Caplyta) 42 mg Capsule Take 42 mg by mouth daily. Active Sublocade solution, extended rel syringe Inject 300 mg by subcutaneous injection every 28 days. 10/11/2023 Active buprenorphine-nalO Xone (SUBOXONE FILM) 4-[address] 1 Strip under tongue 1 time daily as needed. 11/24/2023 Active citalopram (CeleXA) 40 mg tablet Take 40 mg by mouth daily. 12/26/2023 Active Mavyret 100-40 mg Tablet Take 3 Tablets by mouth daily with supper. 12/29/2023 Active hydroCHLOROthiazid e 12.5 mg tablet Take 12.5 mg by mouth daily. 01/03/2024 Active methylphenidate ER 54 mg tablet,extended release 24 hr Take 54 mg by mouth daily. 12/26/2023 Active testosterone cypionate (DEPO-TESTOSTERONE ) 200 mg/mL Oil Inject 200 mg by intramuscular injection every 7 days. 12/23/2023 Active Linzess 72 mcg Capsule capsule Take 72 mcg by mouth daily before breakfast. 12/14/2023 Active metoprolol succinate (TOPROL XL) 50 mg Extended Release 24 hour tablet Take 50 mg by mouth daily. 01/03/2024 Active Active Problems Problem Noted Date Diagnosed Date Bipolar disorder, unspecified 09/28/2023 History of palpitations 10/22/2022 Mixed anxiety and depressive disorder 10/22/2022 History of narcotic addiction 10/22/2022 History of ETOH abuse 10/22/2022 Vitamin D insufficiency 10/22/2022 Attention deficit disorder (ADD) in adult 2022 Hepatitis C 10/21/2022 Overview (01/10/2024): Current treatment per Dr. Simon. [facility] GI. Panic attacks 02/26/2020 Resolved Problems Problem Noted Date Diagnosed Date Resolved Date Hepatitis C antibody test positive 10/21/2022 10/21/2022 Anxiety state 02/26/2020 10/22/2022 Precordial pain 02/26/2020 10/21/2022 Encounters Date Type Department Care Team Description 01/10/2024 7:30 AM GROCERY WORKER Office Visit [facility] [place] [address] [place] [address] Vanda Perdue, RICHARD Acute bilateral low back pain without sciatica (Primary Dx); Hepatitis C virus infection without hepatic coma, unspecified chronicity; Essential hypertension 12/21/2023 External Device Data [facility] ABSTRACTION Provider, Abstract 12/06/2023 External Device Data [facility] ABSTRACTION Provider, Abstract from Last 3 Months Immunizations Name Administration Dates Next Due (ADACEL/BOOSTRIX)(10 YR UP) TDAP VACCINE, 0.5ML, IM 10/21/2022 Family History Medical History Relation Name Comments No Known Problems Brother 1 No Known Problems Brother 2 No Known Problems Brother 3 No Known Problems Daughter Heart Attack Father fatal [place] Alcohol abuse Maternal Grandfather COPD Maternal Grandmother ADD Mother Stomach Cancer Paternal Grandfather Brain Cancer Paternal Grandmother No Known Problems Sister 1 No Known Problems Sister 2 No Known Problems Son Relation Name Status Comments Brother 1 Alive Brother 2 Alive Brother 3 Alive Daughter Alive Father Maternal Grandfather Maternal Grandmother Alive Mother Alive Paternal Grandfather Paternal Grandmother Sister 1 Alive Sister 2 Alive Son Alive Social History Tobacco Use Types Packs/Day Years Used Date Smoking Tobacco: Never Smokeless Tobacco: Never Tobacco Cessation:Counseling Given: Not Answered Alcohol Use Standard Drinks/Week Comments Yes 0 (1 standard drink = 0.6 oz pur e alcohol) Sex and Gender Information Value Date Recorded Sex Assigned at Not on file Gender Identity Not on file Sexual Orientation Not on file Last Filed Vital Signs Vital Sign Reading Time Taken Comments Blood Pressure 126/88 01/10/2024 8:15 AM GROCERY WORKER Pulse 86 01/10/2024 7:28 AM GROCERY WORKER Temperature 36.4 ??C (97.6 ??F) 01/10/2024 7:28 AM CS T Respiratory Rate 18 01/10/2024 7:28 AM GROCERY WORKER Oxygen Saturation 96% 01/10/2024 7:28 AM GROCERY WORKER Inhaled Oxygen Concentration - - Weight 129.3 kg (285 lb) 01/10/2024 7:28 AM GROCERY WORKER Height 182.9 cm (6') 01/10/2024 7:28 AM GROCERY WORKER Body Mass Index 38.65 01/10/2024 7:28 AM GROCERY WORKER Plan of Treatment Upcoming Encounters Date Type Department Care Team (Late st Contact Info) Description 03/27/2024 2:45 PM GROCERY WORKER Office Visit [facility] Oncology and Hematology - [place] [address] [place] [address] [facility] [address] [place] [address] True Wilson MD [address] [facility] [address] [place] [address] Health Maintenance Due Date Last Done Comments Pre-Diabetes and Diabetes Screening 1987 PNEUMOCOCCAL VACCINE 0-64 YEARS (1 of 2 - PCV) 08/23/1993 HEPATITIS B VACCINES (1 of 3 - 19+ 3-dose series) 08/23/2006 INFLUENZA VACCINE (#1) 2023 DTAP/TDAP/TD VACCINES (3 - T d or Tdap) 10/21/2032 10/21/2022, 10/20/2014 HPV VACCINES Aged Out No longer eligi ble based on patient's age to complete this topic [employer]) Corporate Employer ATTN: INGRID MATHEWS [address] [phone]
--- OUTSIDE RECORDS SUMMARY | 2024-02-28 22:27 | XMS_ITS | Encounter Summary ---
Author Organization [facility] Address [address] [place] [address] Care Team Providers Care Photographer'S Model Name Role Phone Unavailable Primary Care Provider Unavailabl e Reason for Referral * Physical Therapy (Routine) - Open Specialty Diagnoses / Procedures Referred By Nata mccoy Referred To Contact Diagnoses Acute bilateral low back pain without sciatica Vanda Perdue ANP [id number] [facility] [address] [place] [address] Referral ID Status Reason Start Date Expiration Date Visits Re quested Visits Authorized [id number] Open 01/10/2024 01/09/2025 12 12 ENTATION MANAGER Reason for Visit * Reason Comments Back Pain Patient started a ne w blood pressure med, and it cause swelling and he ended up in the ER at [facility] because of it. Has had back pain ever since, but is unsure if he did it at work or not. He is debating on switching to us as his primary, but is still uncertain at this time. Encounter Details Date Type Department Care Team (Late st Contact Info) Description 01/10/2024 7:30 AM PRESENTATION MANAGER Office Visit [facility] [employer] [address] [place] [phone] Vanda Perdue, RICHARD [id number] [address] [place] [address] Acute bilateral low back pain without sciatica (Primary Dx); Hepatitis C virus infection without hepatic coma, unspecified chronicity; Essential hypertension Social History Tobacco Use Types Packs/Day Years [...] Comments Blood Pressure 126/88 01/10/2024 8:15 AM PRESENTATION MANAGER Pulse 86 01/10/2024 7:28 AM PRESENTATION MANAGER Temperature 36.4 ??C (97.6 ??F) 01/10/2024 7:28 AM CS T Respiratory Rate 18 01/10/2024 7:28 AM PRESENTATION MANAGER Oxygen Saturation 96% 01/10/2024 7:28 AM PRESENTATION MANAGER Inhaled Oxygen Concentration - - Weight 129.3 kg (285 lb) 01/10/2024 7:28 AM PRESENTATION MANAGER Height 182.9 cm (6') 01/10/2024 7:28 AM PRESENTATION MANAGER Body Mass Index 38.65 01/10/2024 7:28 AM PRESENTATION MANAGER documented in this encounter Progress Notes * Vanda Perdue, ANP - 01/10/2024 7:41 AM CST Images from the original note were not included. HISTORY OF PRESENT ILLNESS Brian Akhtar ., a 38 y.o. male presents with a Chief Complaint of Back Pain (Patient started a new blood pressure med, and it cause swelling and he ended up in the ER at [facility] because of it. Has had back pain ever since, but is unsure if he did it at work or not. He is debating on switching to us as his primary, but is still uncertain at this time.) One week of low back pain, bilat. Dull pressure. Describes as feeling like a softball is causing pressure in the area. Worsens with longer standing periods. Relieved with sitting. 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 Admits to improper technique. He did report the pain to his work and was advised to avoid lifting for a few days. Treating with: lying flat with legs elevated. Sleeping supine. No ice, heat, or NSAIDS. Reports he avoids added meds due to his Hep C and He did not tolerate amlodipine last week with SE of extremity swelling. Concerned back pain may be related. Considering change to our office as PCP for hypertension mgmt. Would continue with current PCP who is pain health benefits specialist. We discussed options and he is aware that we would not prescribe his pain mgmt or psych meds. REVIEW OF SYSTEMS Review of Systems Constitutional: Negative for chills and fever. Respiratory: Negative. Cardiovascular: Negative. Gastrointestinal: Negative for abdominal pain and nausea. Musculoskeletal: Positive for back pain and myalgias. Negative for gait problem, neck pain and neckstiffness. Neurological: Negative for weakness and numbness. Psychiatric/Behavioral: Positive for sleep disturbance. Objective PHYSICAL EXAM BP 126/88 (Patient Position (BP): Sitting) Pulse 86 Temp 97.6 ??F (36.4 ??C) (Tympanic) Resp 18 Ht 6' (1.829 m) Wt 129.3 kg (285 lb) SpO2 96% BMI 38.65 kg/m?? Physical Exam Vitals reviewed. Constitutional: General: He is not in acute distress. Appearance: He is well-developed. HENT: Head: Normocephalic. Cardiovascular: Rate and Rhythm: Normal rate and regular rhythm. Heart sounds: Normal heart sounds. Pulmonary: Effort: Pulmonary effort is normal. Breath sounds: Normal breath sounds. Abdominal: Palpations: Abdomen is soft. There is no mass. Tenderness: There is no abdominal tenderness. There is no right CVA tenderness or left CVA tenderness. Musculoskeletal: Cervical back: Normal range of motion and neck supple. Lumbar back: Tenderness present. No swelling or bony tenderness. Normal range of motion. Negative right straight leg raise test and negative left straight leg raise test. Back: Right hip: Normal. Left hip: Normal. Lymphadenopathy: Cervical: No cervical adenopathy. Skin: General: Skin is warm and dry. Neurological: Mental Status: He is alert. Sensory: No sensory deficit. Motor: No abnormal muscle tone. Coordination: Coordination normal. Gait: Gait normal. Deep Tendon Reflexes: Reflexes are normal and symmetric. Reflexes normal. Psychiatric: Mood and Affect: Mood normal. Behavior: Behavior normal. Procedures Assessment ASSESSMENT and PLAN: 1. Acute bilateral low back pain without sciatica Start NSAIDS daily x 14 days. Then can use as needed or complete full 30 days. Refer to in person PT or can start [facility]. If not improved, should discuss with employer on next steps for care. Aware we do not handle work injuries. - meloxicam (MOBIC) 7.5 mg tablet; Take 1 Tablet (7.5 mg) by mouth daily for 14 days. Take with food.-- discard remaining medication. Dispense: 30 Tablet; Refill: 0 - AMB REFERRAL TO PHYSICAL THERAPY 2. Hepatitis C virus infection without hepatic coma, unspecified chronicity Cotn with GI. Reassured NSAIDS are safe with Hep C. 3. Essential hypertension Managed by PCP. FU there. FOLLOW UP Return if symptoms worsen or fail to improve. Appropriate medications prescribed and pt instructed in risks , benefits and side effects. Appropriate patient instructions provided . See details in AVS Medications and options explained to include common side effects. Understanding of medications, course, diagnosis, and expectations were expressed by patient/guardian. Pt advised to call my office in one week if not contacted with any ordered test results. RICHARD Trevino 01/10/2024 [facility] [employer] [address] [address] Some of this encounter may have been transcribed using [employer] Speaking computerized voicerecognition without a human heel lining paster. This report may or may not have been adjusted for typographical or medical and syntax errors. ENTATION MANAGER documented in this encounter Miscellaneous Notes * Patient Instructions - Vanda Perdue ANP - 01/10/2024 8:08 AM PRESENTATION MANAGER Images from the original note were not included. Start taking meloxicam daily for 1 4 days straight, then if improved, can cut back to only as needed and stop the medication. If still feeling some pain, ok to take for full 30 days. Start back stretches-- via [facility] or in person physical therapy. [facility] benefit for home virtual physical therapy-- [employer]--> Verify Benefits--> Physical Health--> [employer]--> [facility] Virtual PT and sign up from there If you have difficulty finding this, please contact HR. Low Back Arthritis: Exercises Introduction Here are some examples of typical rehabilitation exercises for your condition. Start each exercise slowly. Ease off the exercise if you start to have pain. Your doctor or physical therapist will tell you when you can start these exercises and which ones will work best for you. When you are not being active, find a comfortable position for rest. Some people are comfortable onthe floor or a medium-firm bed with a small pillow under their head and another under their knees. Some people prefer to lie on their side with a pillow between their knees. Don't stay in one position for too long. Take short walks (10 to 20 minutes) every 2 to 3 hours. Avoid slopes, hills, and stairs until you feel better. Walk only distances you can manage without pain, especially leg pain. How to do the exercises Pelvic tilt Lie on your back with your knees bent and your feet flat on the floor. Tighten your belly muscles by pulling your belly button in toward your spine. Press your lower backto the floor. You should feel your hips and pelvis rock back. Hold for about 6 seconds while breathing smoothly, and then relax. Repeat 8 to 12 times. Cat-cow Get on your hands and knees. Your shoulders should be directly above your wrists, and your hips should be above your knees. Your back should be flat, and your neck should extend straight out from your spine. Your gaze should be toward the floor below. Relax your head and allow it to droop. Round your back up toward the ceiling until you feel a nice stretch in your upper, middle, and lower back. Hold this stretch for as long as it feels comfortable, or about 15 to 30 seconds. Then let your back curve down by pressing your stomach toward the floor. Lift your buttocks toward the ceiling. If it doesn't bother your neck, you can raise your head as you allow your back to sway.Hold this position for 15 to 30 seconds. Go back and forth smoothly 2 to 4 times between the rounded back and swayed back positions. If you have a neck problem or injury, keep your neck in the original position in line with your torso instead of moving it with your spine. Follow-up care is a dunn part of your treatment and safety. Be sure to make and go to all appointments, and call your doctor if you are having problems. It's also a good idea to know your test resultsand keep a list of the medicines you take. Current as of: September 06, 2022 Content Version: 14.1 ?? 2693-0061 [email or web address]. Care instructions adapted under license by your healthcare professional. If you have questions about a medical condition or this instruction, always ask your healthcare professional. These instructions may not represent the values of this healthcare organization. [employer], [employer] disclaims any warranty or liability for your use of this information. ENTATION MANAGER documented in this encounter Plan of Treatment Upcoming Encounters Date Type Department Care Team (Late st Contact Info) Description 03/27/2024 2:45 PM PRESENTATION MANAGER Office Visit [facility] Oncology and Hematology - [place] [address] [place] [address] [facility] [address] [place] [address] True Wilson MD [address] [facility] [address] [place] [address] Scheduled Referrals Name Type Priority Associated Diagnoses Orde r Schedule AMB REFERRAL TO PHYSICAL THERAPY Outpatient Referral Routine Acute bilateral low back pain without sciatica Ordered: 01/10/2024 documented as of this encounter Visit Diagnoses Diagnosis Acute bilateral low back pain without sciatica- Primary Hepatitis C virus infection without hepatic coma, unspecified chronicity Essential hypertension Unspecified essential hypertension documented in this encounter
--- OUTSIDE RECORDS SUMMARY | 2024-02-28 22:27 | XMS_ITS | Encounter Summary ---
Author Organization [facility] DIOGENES Cruz [facility] Address [address] [place] [address] Care Team Providers Care Engraver Seals Name Role Phone Unavailable Primary Care Provider Unavailabl e Encounter Details Date Type Department Care Team ([facility] Contact Info) Description 11/14/2023 Orders Only [facility] Oncology and Hematology Neri [address] [place] [address] True Wilson MD [address] [place] [phone] Social History Tobacco Use Types Packs/Day Years [...] Encounters Date Type Department Care Team (Late Contact Info) Description 03/27/2024 2:45 PM SLUBBER OPERATOR Office Visit [facility] Oncology and Hematology - Neri [address] [place] [address] True Wilson MD [address] [place] [phone] documented as of this encounter Procedures Procedure Name Priority Date/Time Associated Diagnosis Comments CHG SOLUBLE TRANSFERRIN RECEPTOR Routine 11/07/2023 4:00 PM CDT documented in this encounter Results * CHG SOLUBLE TRANSFERRIN RECEPTOR (11/07/2023 4:00 PM CDT) True Wilson MD CHG - LABORATORY documented in this encounter Visit Diagnoses Not on filedocumented in this encounter Additional Health Concerns Assessment Noted Time PHQ-9 Depression Total Score: 2 09/28/19 24 3:00 PM CDT documented as of this encounter
--- OUTSIDE RECORDS SUMMARY | 2024-02-28 22:27 | XMS_ITS | Encounter Summary ---
Author Organization [facility] [employer] [facility] Address [address] [place] [address] Care Team Providers Care Respite Provider Name Role Phone Unavailable Primary Care Provider Unavailabl e Encounter Details Date Type Department Care Team (Late st Contact Info) Description 11/21/2023 4:30 PM CDT Telephone Check Up [facility] Oncology and Hematology - Neri [address] [facility] [address] [place] [address] True Wilson MD [address] [facility] [address] [place] [address] Chronic anemia (Primary Dx) Social History Tobacco Use Types Packs/Day Years Used Date Smoking Tobacco: Never Smokeless Tobacco: Never Alcohol Use Standard Drinks/Week Comments Yes 0 (1 standard drink = 0.6 oz pur e alcohol) Sex and Gender Information Value Date Recorded Sex Assigned at Not on file Gender Identity Not on file Sexual Orientation Not on file documented as of this encounter Progress Notes * True Wilson MD - 11/21/2023 5:32 PM CDT HEMATOLOGY / ONCOLOGY PROGRESS NOTE Patient Identification: Name: Brian Akhtar Jr. Age: 38 y.o. Sex: male : 1985 DIAGNOSIS Thrombocytopenia Hepatitis C CURRENT TREATMENT Expectant TREATMENT HISTORY SUBJECTIVE This is a phone visit with patient. He denies any bleeding and bruising. No chest pain and shortness of breath. No other new complaints. Review of system Constitutional: Patient did not mention fevers, sweats, fatigue, malaise, weight loss HEENT: Patient did not mention sinus congestion, hearing or vision problems Respiratory: Patient did not mention cough, dyspnea, wheeze Cardiovascular: Patient did not mention chest pain, exertional chest pressure/discomfort, nausea, syncope, shortness of breath GI: Patient did not mention constipation, diarrhea, dsyphagia, reflux symptoms, vomiting, melena : Patient did not mention dysuria, frequency, incontinence, urgency Integumentary system: no lymphadenopathy, sweats, flushing Musculoskeletal: Patient not mention: myalgia, arthralgia Neurological: Patient did not mention blurry or disturbed vision, numbness/weakness, dizziness Skin: No lumps, bumps or rashes. Objective: Vital signs in last 24 hours: As per nursing note Exam: General appearance: alert, cooperative, no distress, appears stated age Head: normocephalic, without obvious abnormality, atraumatic Eyes: conjunctivae/corneas clear, EOM's intact Ears: normal external ear canals AU Nose: Nares normal. Septum midline. Mucosa normal. No drainage or sinus tenderness Throat: Lips, mucosa, and tongue normal. Teeth and gums normal Neck: supple, symmetrical, trachea midline. Lungs: clear to auscultation bilaterally Heart: regular rate and rhythm, S1, S2 normal, no murmur, click, rub or gallop Abdomen: soft, non-tender. Bowel sounds normal. No masses, No organomegaly Extremities: extremities normal, atraumatic, no cyanosis or edema Skin: Skin color, texture, turgor normal. No rashes or lesions Lymph nodes: No lymphadenopathy Neuro: No obvious focal deficit PATH LABS Labs from November 06 showed creatinine 0.9 total bilirubin 0.4 AST 100 ALT 177 vitamin B12 553 platelet antibodies negative iron 86 saturation 19 hemoglobin 14 platelet 1 70,000 WBC 7.3 @IMAGEIMP@ Assessment: Plan: Patient Active Problem List Diagnosis Date Noted Bipolar disorder, unspecified 09/28/2023 History of palpitations 10/22/2022 Mixed anxiety and depressive disorder 10/22/2022 History of narcotic addiction 10/22/2022 History of ETOH abuse 10/22/2022 Vitamin D insufficiency 10/22/2022 Attention deficit disorder (ADD) in adult 10/22/2022 Hepatitis C 10/21/2022 Panic attacks 02/26/2020 Thrombocytopenia. This is secondary to hepatitis C. Labs showed normal vitamin B12 level. Iron saturation is slightly low. Platelet antibodies were negative. Previous CT scan from April 2023 showed no evidence of hepatosplenomegaly. Repeat labs showed normal platelet count. He is asymptomatic. I will see him back in 4 months with repeat labs. Hepatitis C. Patient has been talking to Dr. Moore to initiate treatment as soon as approved bythe insurance. Bipolar disorder. Patient is Lexapro and Caplyta. Hypertension. Stable. ? TOBACCO COUNSELING He is not a tobacco/nicotine user. 11/21/2023 True Wilson MD This encounter was completed via audio-only two way synchronous communication. Patient's identity confirmed yes Patient gave verbal consent to have these services billed to their insurance and expressed understanding that co-insurance and deductible may apply: yes Time spent by the provider delivering the care documented in this encounter 20 minutes. documented in this encounter Plan of Treatment Upcoming Encounters Date Type Department Care Team (Late st Contact Info) Description 03/27/2024 2:45 PM RIVET TESTER Office Visit [facility] Oncology and Hematology - [place] [address] [place] [address] [facility] [address] [place] [address] [place] [address] [place] [address] [address] [place] [address] Scheduled Orders Name Type Priority Associated Diagnoses Orde r Schedule CBC WITH DIFFERENTIAL Lab Stat Chronic anemia Expected: 03/12/2024, Expires: 11/20/2024 COMPREHENSIVE METABOLIC PANEL Lab Stat Chronic anemia Expected: 03/12/2024, Expires: 11/20/2024 documented as of this encounter Visit Diagnoses Diagnosis Chronic anemia- Primary Anemia, unspecified documented in this encounter Additional Health Concerns Assessment Noted Time PHQ-9 Depression Total Score: 2 09/28/19 24 3:00 PM CDT documented as of this encounter
--- OUTSIDE RECORDS SUMMARY | 2024-02-28 22:27 | XMS_ITS | Encounter Summary ---
Author Organization [facility] Address [address] [place] [address] Care Team Providers Care Electric Power Line Repairer Name Role Phone Unavailable Primary Care Provider Unavailabl e Encounter Details Date Type Department Care Team (Late st Contact Info) Description 12/21/2023 External Device Data STL ABSTRACTION Provider, [...] st Contact Info) Description 03/27/2024 2:45 PM VP CELEBRITY SERVICES Office Visit [facility] Oncology and Hematology - Neri [address] [facility] [address] [place] [address] True Wilson MD [address] [facility] [address] [place] [address] documented as of this encounter Visit Diagnoses Not on filedocumented in this encounter Additional Health Concerns Assessment Noted Time PHQ-9 Depression Total Score: 2 09/28/19 24 3:00 PM CDT documented as of this encounter
--- OUTSIDE RECORDS SUMMARY | 2024-02-28 22:27 | XMS_ITS | Encounter Summary ---
Author Organization [facility] Address [address] [place] [address] Care Team Providers Care Supervisor Fish [employer] Name Role Phone Unavailable Primary Care Provider Unavailabl e Encounter Details Date Type Department Care Team (Late st Contact Info) Description 12/06/2023 External Device Data STL ABSTRACTION Provider, [...] st Contact Info) Description 03/27/2024 2:45 PM ASSISTANT UNIT FORESTER Office Visit [facility] Oncology and Hematology - Neri [address] [facility] [address] [place] [address] True Wilson MD [address] [facility] [address] [place] [address] documented as of this encounter Visit Diagnoses Not on filedocumented in this encounter Additional Health Concerns Assessment Noted Time PHQ-9 Depression Total Score: 2 09/28/19 24 3:00 PM CDT documented as of this encounter
--- OUTSIDE RECORDS SUMMARY | 2024-02-28 22:28 | XMS_ITS | Encounter Summary ---
Author Organization [facility] Address [address] [place] [address] Care Team Providers Care Learning Support Teacher Name Role Phone Unavailable Primary Care Provider Unavailabl e Reason for Referral * Radiology Services (Routine) - Closed Specialty Diagnoses / Procedures Referred By Nata mccoy Referred To Contact Radiology Diagnoses Precordial pain Procedures ECHO STRESS TEST EXERCISE Sim Velásquez MD NO ADDRESS ON FILE [facility] [address] [address] Referral ID Status Reason Start Date Expiration Date Visits Re quested Visits Authorized [id number] Closed 01/01/2021 01/31/2021 1 1 ING SCIENCE PROFESSOR Reason for Visit * Radiology Services (Routine) - Closed Specialty Diagnoses / Procedures Referred By Nata mccoy Referred To Contact Radiology Diagnoses Precordial pain Procedures ECHO STRESS TEST EXERCISE Sim Velásquez MD NO ADDRESS ON FILE [facility]io [facility] [address] [address] Referral ID Status Reason Start Date Expiration Date Visits Re quested Visits Authorized [id number] Closed 01/01/2021 01/31/2021 1 1 Encounter Details Date Type Department Care Team (Latest Contact Info) Description 01/13/2021 1:00 PM IMAGING SCIENCE PROFESSOR - 01/13/2021 11:59 PM IMAGING SCIENCE PROFESSOR Hospital Encounter [facility] Diagnostic Cardiology Services [facility] 755 [facility] ISAIAH [address] [place] [phone] Sim Velásquez MD NO ADDRESS ON FILE Discharge Disposition: Home or Self Care Social [...] Exposure Response Date Recorded In the last month, have you been in contact with someone who was confirmed or suspected to have Coronavirus / COVID-19? 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 IMAGING SCIENCE PROFESSOR documented as of this encounter Medications at Time of Discharge Medication Sig Dispensed Refills Start Date End Date dextroamphetamine-amphe tamine (ADDERALL) 20 mg tabletIndications:Anxie ty state,Attention deficit disorder (ADD) in adult Take one tablet early afternoon 30 Tablet 01/05/2021 02/05/2021 escitalopram oxalate (LEXAPRO) 20 mg tabletIndications:Anxie ty state Take 1 Tablet (20 mg) by mouth daily. 90 Tablet 1 12/23/2020 01/10/2024 metoprolol succinate (TOPROL XL) 25 mg Extended Release 24 hour tabletIndications:Anxie ty state,Attention deficit disorder (ADD) in adult,Heart palpitations Take 1 Tablet (25 mg) by mouth daily. 90 Tablet 12/23/2020 01/10/2024 methylphenidate HCl (Concerta) 18 mg Extended Release tabletIndications:Atten tion deficit disorder (ADD) in adult Take 1 Tablet (18 mg) by mouth daily in the morning. Max Daily Amount: 18 mg 30 Tablet 12/23/2020 01/22/2021 methylphenidate HCl (CONCERTA) 54 mg Extended Release tabletIndications:Anxie ty state,Attention deficit disorder (ADD) in adult Take 1 Tablet (54 mg) by mouth daily in the morning. Max Daily Amount: 54 mg 30 Tablet 12/18/2020 01/16/2021 documented as of this encounter Miscellaneous Notes * Result Encounter Note - Sim Velásquez MD - 01/13/2021 1:00 PM IMAGING SCIENCE PROFESSOR [facility] documented in this encounter Plan of Treatment Upcoming Encounters Date Type Department Care Team (Late st Contact Info) Description 03/27/2024 2:45 PM IMAGING SCIENCE PROFESSOR Office Visit [facility] Oncology and Hematology - Neri [address] [place] [address] True Wilson MD [address] [facility] [address] [place] [address] documented as of this encounter Procedures Procedure Name Priority Date/Time Associated Diagnosis Comments ECHO STRESS TEST EXERCISE Routine 01/13/2021 1:51 PM IMAGING SCIENCE PROFESSOR Precordial pain documented in this encounter Results * ECHO STRESS TEST EXERCISE (01/13/2021 1:51 PM IMAGING SCIENCE PROFESSOR) EJECTION FRACTION EF: INTERFACE SYSTEM 01/13/2021 1:17 PM IMAGING SCIENCE PROFESSOR Narrative INTERFACE SYSTEM - 01/13/2021 3:43 PM IMAGING SCIENCE PROFESS[place] [address] [email or web address] -- Stress Echocardiography Sukumar Protocol -- Patient: ? Brian Akhtar: ? [id number] Study ID: ?[id number] Gender: ?M : ? 1985 Age: ? 35 Race: ?CAU Height Study Date: ?01/13/2021 Weight: Access. #: ? [id number] Account #: ? [id number] BP: -- -- *Referring Physician:* Sim Velásquez Jeffrey A *Ordering Physician:* ??Sim Velásquez Photolettering Machine Operator: golf superintendent: Nurse: -- Indications: Chest pain. STUDY CONCLUSIONS: SUMMARY: -- - Stress: Functional capacity was normal. - Exercise; 8 min 45 sec; 9METS - Stress ECG conclusions: The stress ECG was negative for ischemia. - Stress echo: There was no echocardiographic evidence for stress-induced ??ischemia. - Baseline: LV global systolic function was normal. The estimated LV ejection ??fraction was 55%. -- Cardiac Anatomy: Baseline ECG: ?? Normal sinus rhythm. Normal tracing. Stress protocol: -- - Baseline HR: 92bpm BP: 140/100 - Exercise; 8 min 45 sec; 9METS HR: 159bpm BP: 220/95 -- Stress results: ?? Maximal heart rate during stress was 159bpm (85% of maximal predicted heart rate). The maximal predicted heart rate was 187bpm.The target heart rate was 159bpm. The rate-pressure product for the peak heart rate and blood pressure was 53131qe Hg/min. ??The patient experienced no chest pain during stress. ?? Functional capacity was normal. ?Treadmill exercise testing was performed using the Sukumar protocol. Exercise was terminated due to dyspnea and fatigue. Stress ECG: ??There were no stress arrhythmias or conduction abnormalities. The stress ECG was negative for ischemia. Baseline: LV size was normal. LV global systolic function was normal. The estimated LV ejection fraction was 55%. Normal wall motion; no LV regional wall motion abnormalities. Peak stress: LV size was reduced. LV global systolic function was augmented. Normal wall motion; no LV regional wall motion abnormalities. Stress echo results: ? There was no echocardiographic evidence for stress-induced ischemia. Procedure data: Consent: ??The risks, benefits, and alternatives to the procedure were explained to the patient and informed consent was obtained. ??Procedure information: ??Initial setup. The patient was brought to the laboratory. A baseline ECG was recorded. Surface ECG leads and automatic cuff blood pressure measurements were monitored. Transthoracic stress echocardiography. Images were captured at baseline and peak exercise. ??Study completion: ??There were no complications. ?Sukumar protocol. Stress echocardiography. ??Birthdate: Patient birthdate: 1985. ??Age: ??Patient is 35yr old. ??Sex: ?? gender: male. ??Study date: ??Study date: 01/13/2021. Study time: 01:17 PM. Prepared and Electronically Authenticated Lance Reis M.D. ([facility]) [id number] Procedure Note Lance Reis MD - 01/13/2021 -- [address] [address] [email or web address] -- Stress Echocardiography Sukumar Protocol -- Patient: Brian Akhtar Study ID: [id number] Gender: M :1985 Age: 35 Race: [place] Height Study Date:01/13/2021 Weight: Access. #:[id number] BP: -- -- *Referring Physician:Sim Del Cid Jeffrey A *Ordering Physician:Sim Del Cid Photolettering Machine Operator: golf superintendent: Nurse: -- Indications: Chest pain. STUDY CONCLUSIONS: SUMMARY: -- - Stress: Functional capacity was normal. - Exercise; 8 min 45 sec; 9METS - Stress ECG conclusions: The stress ECG was negative for ischemia. - Stress echo: There was no echocardiographic evidence forstress-induced ischemia. - Baseline: LV global systolic function was normal. The estimated LVejection fraction was 55%. -- Cardiac Anatomy: Baseline ECG: Normal sinus rhythm. Normal tracing. Stress protocol: -- - Baseline HR: 92bpm BP: 140/100 - Exercise; 8 min 45 sec; 9METS HR: 159bpm BP: 220/95 -- Stress results: Maximal heart rate during stress was 159bpm (85% ofmaximal predicted heart rate). The maximal predicted heart rate was 187bpm.Thetarget heart rate was 159bpm. The rate-pressure product for the peak heart rateand blood pressure was 27402nu Hg/min. The patient experienced no chestpain during stress. Functional capacity was normal. Treadmill exercisetesting was performed using the Sukumar protocol. Exercise was terminated due todyspnea and fatigue. Stress ECG: There were no stress arrhythmias or conductionabnormalities. The stress ECG was negative for ischemia. Baseline: LV size was normal. LV global systolic function was normal.The estimated LV ejection fraction was 55%. Normal wall motion; no LVregional wall motion abnormalities. Peak stress: LV size was reduced. LV global systolic function wasaugmented. Normal wall motion; no LV regional wall motion abnormalities. Stress echo results: There was no echocardiographic evidence for stress-induced ischemia. Procedure data: Consent: The risks, benefits, and alternatives to the procedure were explained to the patient and informed consent was obtained. Procedure information: Initial setup. The patient was brought to the laboratory.A baseline ECG was recorded. Surface ECG leads and automatic cuff bloodpressure measurements were monitored. Transthoracic stress echocardiography.Images were captured at baseline and peak exercise. Study completion: Therewere no complications. Sukumar protocol. Stress echocardiography.Birthdate: Patient birthdate: 1985. Age: Patient is 35yr old. Sex: gender: male. Study date: Study date: 01/13/2021. Study time: 01:17PM. Prepared and Electronically Authenticated Lance Reis M.D. ([facility]) [id number]:43:40 Sim Velásquez MD US ORDERABLES INTERFACE SYSTEM Refer to clinic/hospital department documented in this encounter Visit Diagnoses Diagnosis Precordial pain documented in this encounter Additional Health Concerns Assessment Noted Time PHQ-9 Depression Total Score: 4 02/25/19 21 3:00 PM IMAGING SCIENCE PROFESSOR documented as of this encounter
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
--- OUTSIDE RECORDS SUMMARY | 2024-02-28 22:28 | XMS_ITS | Encounter Summary ---
Author Organization [employer] Address [address] [place] [address] Care Team Providers Care Nuclear Auxiliary Operator Name Role Phone Unavailable Primary Care Provider Unavailabl e Reason for Visit * Reason Onset Date Comments Medication Problem 07/30/2020 Encounter Details Date Type Department Care Team (Late st Contact Info) Description 07/30/2020 Telephone [facility] [employer] [place] [address] [place] [address] Sim Velásquez MD NO ADDRESS ON FILE Medication Problem Social History Tobacco Use Types Packs/Day Years [...] have Coronavirus / COVID-19? No / Unsure 07/28/2020 2:39 PM CDT documented as of this encounter Miscellaneous Notes * Telephone Encounter - Anuja Cee - 07/30/2020 10:57 AM CDT I agree, but says he is completely out, she is going to reach out to other pharmacies and let us know. * Telephone Encounter - Sim Velásquez MD - 07/30/2020 10:54 AM CDT Not sure there is anything else to do. If he just received #30 on 07/09, he should have plenty left until his refill is due? * Telephone Encounter - Anuja Cee - 07/30/2020 9:38 AM CDT Pts called stating that he is completely out of the concerta, [facility] due to it being too early. She stated that the pharmacy told her that it could be filled 07/31/2020 if the doctor approved it. I called [facility] and they told me that he just had #30 filled somewhere on 07/09/2020 and that they do not have it in stock at this time and that the earliest they will fill it there will be 08/07/2020 since it is a controlled substance. I spoke to pts giving her this information, she states she will call around to other pharmacies and see if somewhere has it in stock. She is asking what he should do in the meantime since he is completely out. Please advise documented in this encounter Plan of Treatment Upcoming Encounters Date Type Department Care Team (Late st Contact Info) Description 03/27/2024 2:45 PM BAIL BONDING AGENT Office Visit [facility] Oncology and Hematology - [place] [address] [place] [address] [facility] [address] [place] [address] True Wilson MD [address] [facility] [address] [place] [address] documented as of this encounter Visit Diagnoses Not on filedocumented in this encounter Additional Health Concerns Assessment Noted Time PHQ-9 Depression Total Score: 4 02/25/19 21 3:00 PM BAIL BONDING AGENT documented as of this encounter
--- OUTSIDE RECORDS SUMMARY | 2024-02-28 22:28 | XMS_ITS | Encounter Summary ---
Author Organization [facility] Address [address] [facility] Attn: Epic Prelude ADT ARIK QUINTERO [address] Care Team Providers Care Fly Raiser Lockstitch Name Role Phone Unavailable Primary Care Provider Unavailabl e Encounter Details Date Type Department Care Team (Latest Contact Info) Description 12/30/2020 Travel Social History Tobacco Use Types Packs/Day [...] COVID-19? 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 LIFEGUARD documented as of this encounter Plan of Treatment Upcoming Encounters Date Type Department Care Team (Late st Contact Info) Description 03/27/2024 2:45 PM LIFEGUARD [facility] Oncology and Hematology - Neri [address] [facility] [address] [place] [address] True Wilson MD [address] [facility] [address] [place] [address] documented as of this encounter Visit Diagnoses Not on filedocumented in this encounter Additional Health Concerns Assessment Noted Time PHQ-9 Depression Total Score: 4 02/25/19 21 3:00 PM LIFEGUARD documented as of this encounter
--- OUTSIDE RECORDS SUMMARY | 2024-02-28 22:28 | XMS_ITS | Encounter Summary ---
Author Organization [employer] [facility] Address [address] [place] [address] Care Team Providers Care Steel Handler Name Role Phone Unavailable Primary Care Provider Unavailabl e Reason for Visit * Reason Onset Date Comments Medication Refill 07/29/2020 Encounter Details Date Type Department Care Team (Late st Contact Info) Description 07/29/2020 Refill [facility] [employer] [place] [address] [place] [address] Sim Velásquez MD NO ADDRESS ON FILE Attention deficit disorder (ADD) in adult Social History Tobacco Use Types Packs/Day Years [...] encounter Miscellaneous Notes * Telephone Encounter - Lilibeth Ayon RN - 07/29/2020 8:33 AM CDT Pt's called stating pt had a prescription for Concerta 54mg sent to [facility] in [place]. Pt's states [facility] called them and let them know they are out of concerta at that location and they are unable to transfer the prescription to another pharmacy. Pt's is requesting this be sent to [facility] on [facility] in [place]. documented in this encounter Plan of Treatment Upcoming Encounters Date Type Department Care Team (Late st Contact Info) Description 03/27/2024 2:45 PM MYCOLOGY TEACHER Office Visit [facility] Oncology and Hematology - Neri [address] [facility] [address] [place] [address] True Wilson MD [address] [facility] [address] [place] [address] documented as of this encounter Visit Diagnoses Diagnosis Attention deficit disorder (ADD) in adult documented in this encounter Additional Health Concerns Assessment Noted Time PHQ-9 Depression Total Score: 4 02/25/19 21 3:00 PM MYCOLOGY TEACHER documented as of this encounter
--- OUTSIDE RECORDS SUMMARY | 2024-02-28 22:28 | XMS_ITS | Encounter Summary ---
Author Organization [facility] Address [address] [facility] Attn: Epic Prelude ADT ARIK QUINTERO [address] Care Team Providers Care Digital Marketing Officer Name Role Phone Unavailable Primary Care Provider Unavailabl e Encounter Details Date Type Department Care Team (Latest Contact Info) Description 03/27/2020 Travel Social History Tobacco Use Types Packs/Day [...] have Coronavirus / COVID-19? No / Unsure 02/26/2020 2:10 PM TRANSITION ASSISTANT documented as of this encounter Plan of Treatment Upcoming Encounters Date Type Department Care Team (Late st Contact Info) Description 03/27/2024 2:45 PM TRANSITION ASSISTANT Office Visit [facility] Oncology and Hematology - Neri [address] [facility] [address] [place] [address] True Wilson MD [address] [facility] [address] [place] [address] documented as of this encounter Visit Diagnoses Not on filedocumented in this encounter Additional Health Concerns Assessment Noted Time PHQ-9 Depression Total Score: 4 02/25/19 21 3:00 PM TRANSITION ASSISTANT documented as of this encounter
--- OUTSIDE RECORDS SUMMARY | 2024-02-28 22:28 | XMS_ITS | Encounter Summary ---
Author Organization [facility] Address [address] [place] [address] Care Team Providers Care Farm Contractor Buyer Name Role Phone Unavailable Primary Care Provider Unavailabl e Reason for Visit * Reason Comments Sweats Randomly breaking ou t in cold sweats for a month and a half Nausea Encounter Details Date Type Department Care Team (Late st Contact Info) Description 09/28/2023 2:00 PM CDT Office Visit [facility] at Work [employer] [place] [address] [place] [address] Janet Desai MD [address] [place] [address] Cold sweat (Primary Dx); Nausea; Fatigue, unspecified type; Abnormal weight loss; Chronic hepatitis C without hepatic coma; History of narcotic addiction; History of ETOH abuse; Mixed anxiety and depressive disorder; High serum protein level Social History Tobacco Use Types Packs/Day Years [...] Sign Reading Time Taken Comments Blood Pressure 126/78 09/28/2023 2:38 PM CDT Pulse 80 09/28/2023 2:03 PM CDT Temperature 36.8 ??C (98.3 ??F) 09/28/2023 2:03 PM CD T Respiratory Rate 18 09/28/2023 2:03 PM CDT Oxygen Saturation 97% 09/28/2023 2:03 PM CDT Inhaled Oxygen Concentration - - Weight 100.2 kg (221 lb) 09/28/2023 2:03 PM CDT Height 182.9 cm (6') 09/28/2023 2:03 PM CDT Body Mass Index 29.97 09/28/2023 2:03 PM CDT documented in this encounter Progress Notes * Janet Desai MD - 09/28/2023 2:23 PM CDT HISTORY OF PRESENT ILLNESS Brian Akhtar Jr., a 38 y.o. male presents with a Chief Complaint of Sweats (Randomly breaking outin cold sweats for a month and a half) and Nausea Subjective States has not felt well for several months but has been particularly bad for the last month Cold sweats/ chill occurring about every 30 min and last for 15. Mainly during day. Will drench hisshirt so he changes to a new one. Not sure if happening at night as he take lunesta and sleep soundly but does not note clothes to be drenched He has not measured his temperature Constant whole body fatigue. Sleeps well at night with aid of Lunesta Nauseas constantly, food does not taste right. Forces self to eat Reports 20 lbs weight loss past several months C/o blood pressure has been running high, frustrated wit PCP- not doing anything about it Hep C- diagnosed several years back but not treated- just recently established with GI- further eval underway with plans to treat. Presented to ER 06/14/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 States there is Zinc in the gas - inhalation leads to a flue like illness lasting several days. Last time he was exposed - 1 month ago. States he refused to continue with this work History drug use in past IV fentanyl, heroin, methamphetamines- denies use in past 1-2 years (ER visit 08/08/22 [facility] for Cellulitis in report states pt admitted to relapse 2 days prior IV Fentanyl) Denies recent travel, international travel, insect/ tick bites REVIEW OF SYSTEMS Review of Systems Constitutional: Positive for appetite change, chills, diaphoresis and unexpected weight change. HENT: Negative. Eyes: Negative. Respiratory: Negative for cough, chest tightness and shortness of breath. Cardiovascular: Negative for chest pain and leg swelling. Gastrointestinal: Positive for constipation (chronic constipation) and nausea. Negative for abdominal pain, blood in stool and vomiting. Genitourinary: Negative. Musculoskeletal: Negative for joint swelling, myalgias and neck stiffness. Skin: Negative for color change, rash and wound. Denies any recent tick, insect bites Neurological: Negative for dizziness, syncope, weakness and headaches. Hematological: Negative. Psychiatric/Behavioral: The patient is nervous/anxious. Objective PHYSICAL EXAM BP 126/78 Pulse 80 Temp 98.3 ??F (36.8 ??C) (Tympanic) Resp 18 Ht 6' (1.829 m) Wt 100.2 kg (221 lb) SpO2 97% BMI 29.97 kg/m?? Physical Exam Constitutional: General: He is not in acute distress. Appearance: He is not ill-appearing. HENT: Right Ear: Tympanic membrane normal. Left Ear: Tympanic membrane normal. Nose: Nose normal. Mouth/Throat: Mouth: Mucous membranes are moist. Pharynx: Oropharynx is clear. Eyes: Extraocular Movements: Extraocular movements intact. Conjunctiva/sclera: Conjunctivae normal. Pupils: Pupils are equal, round, and reactive to light. Neck: Thyroid: No thyromegaly. Vascular: No carotid bruit. Cardiovascular: Rate and Rhythm: Normal rate and regular rhythm. Heart sounds: Normal heart sounds. Pulmonary: Effort: Pulmonary effort is normal. Breath sounds: Normal breath sounds. No wheezing, rhonchi or rales. Abdominal: General: Bowel sounds are normal. There is no distension. Palpations: There is no mass. Tenderness: There is abdominal tenderness (mild epigastric and suprapubic). There is no right CVA tenderness, left CVA tenderness or guarding. Musculoskeletal: Cervical back: Neck supple. Right lower leg: No edema. Left lower leg: No edema. Lymphadenopathy: Cervical: No cervical adenopathy. Skin: General: Skin is warm and dry. Coloration: Skin is not jaundiced. Findings: No rash. Comments: Multiple tattoos arms, torso Neurological: Mental Status: He is alert. Cranial Nerves: No cranial nerve deficit. Motor: No weakness. Deep Tendon Reflexes: Reflexes normal. Psychiatric: Attention and Perception: Attention normal. Mood and Affect: Mood is anxious. Speech: Speech normal. Behavior: Behavior normal. Thought Content: Thought content normal. Procedures Assessment ASSESSMENT and PLAN: ICD-10-CM ICD-9-CM 1. Cold sweat R68.89 780.99 CBC WITH DIFFERENTIAL COMPREHENSIVE METABOLIC PANEL TSH C-REACTIVE PROTEIN URINALYSIS WITH REFLEX CULTURE URINALYSIS WITH REFLEX CULTURE C-REACTIVE PROTEIN TSH COMPREHENSIVE METABOLIC PANEL CBC WITH DIFFERENTIAL 2. Nausea R11.0 787.02 COMPREHENSIVE METABOLIC PANEL COMPREHENSIVE METABOLIC PANEL 3. Fatigue, unspecified type R53.83 780.79 TSH TSH 4. Abnormal weight loss R63.4 783.21 Per patient 5. Chronic hepatitis C without hepatic coma B18.2 070.54 Recently established with GI - evaluation in progress with planned treatment 6. History of narcotic addiction F11.21 304.03 aware 7. History of ETOH abuse F10.11 305.03 aware 8. Mixed anxiety and depressive disorder F41.8 300.4 documented in this encounter Miscellaneous Notes * Addendum Note - Janet Desai MD - 10/03/2023 1:03 PM CDTAddended by: JANET DESAI on: 10/03/2023 01:03 PM Modules accepted: Orders documented in this encounter Plan of Treatment Upcoming Encounters Date Type Department Care Team (Late st Contact Info) Description 03/27/2024 2:45 PM LEAK PATCHER Office Visit [facility] Oncology and Hematology - Neri [address] [facility] [address] [place] [address] [place] [address] True Wilson MD [address] [facility] [address] [place] [address] Scheduled Orders Name Type Priority Associated Diagnoses Orde r Schedule PROTEIN ELECTROPHORESIS W/REFLEX,SERUM Lab Routine High serum protein level Expected: 10/03/2023, Expires: 10/02/2024 IMMUNOGLOBULINS IGG IGA IGM Lab Routine High serum protein level Expected: 10/03/2023, Expires: 10/02/2024 documented as of this encounter Procedures Procedure Name Priority Date/Time Associated Diagnosis Comments URINALYSIS WITH REFLEX CULTURE Routine 09/28/2023 3:01 PM CDT Cold sweat CBC WITH DIFFERENTIAL Routine 09/28/2023 3:01 PM CDT Cold sweat C-REACTIVE PROTEIN Routine 09/28/2023 3: 01 PM CDT Cold sweat TSH Routine 09/28/2023 3:01 PM CDT Cold sweat Fatigue, unspecified type COMPREHENSIVE METABOLIC PANEL Routine 09/28/2023 3:01 PM CDT Cold sweat Nausea documented in this encounter Results * (ABNORMAL) URINALYSIS WITH REFLEX CULTURE (09/28/2023 3:01 PM CDT) COLOR UA DARK YELLOW YELLOW [facility] CLARITY UA CLOUDY(A) CLEAR [facility] SPECIFIC GRAVITY UA 1.023 1.001 - 1.035 [facility] PH UA 5.5 5.0 - 8.0 [facility] GLUCOSE UA NEGATIVE NEGATIVE [facility] BILIRUBIN UA NEGATIVE NEGATIVE [facility] KETONES UA NEGATIVE NEGATIVE [facility] BLOOD UA NEGATIVE NEGATIVE [facility] PROTEIN UA TRACE(A) NEGATIVE [facility] NITRITE UA NEGATIVE NEGATIVE [facility] LEUKOCYTE ESTERASE UA NEGATIVE NEGATIVE [facility] WBC UA NONE SEEN < OR = 5 /HPF [facility] RBC UA NONE SEEN < OR = 2 /HPF [facility] EPITHELIAL CELLS, URINE NONE SEEN < OR = 5 /HPF [facility] BACTERIA UA NONE SEEN NONE SEEN /HPF [facility] HYALINE CAST 10-20(A) NONE SEEN /LPF [facility] URINE NOTE [facility] Comment: This urine was analyzed for the presence of WBC, RBC, bacteria, casts, and other formed elements. Only those elements seen were reported. URINE CULTURE [facility] Comment: NO CULTURE INDICATED Test Performed at: [place] [address] [place] ??[phone] [facility] Urine URINE SPECIMEN OBTAINED BY CLEAN CATCH PROCEDURE / Unknown 09/28/2023 3:01 PM CDT 09/29/2023 1:11 AM CDT Janet Desai MD URINE ORDERABLES Performing Organization Address City/[facility]/ZIP Code Phone Number [facility] [phone] [place] [address] [place] [address] * C-REACTIVE PROTEIN (09/28/2023 3:01 PM CDT) CRP <5.0 <8.0 mg/L [facility] Comment: Test Performed at: [place] [address] [place] ??[phone] [facility] Blood 09/28/2023 3:01 PM CDT 09/28/2023 11:49 PM CDT Janet Desai MD CHEMISTRY ORDERABLES Performing Organization Address [facility] Phone Number [facility] [phone] [place] [address] [place] [address] * TSH (09/28/2023 3:01 PM CDT) TSH 1.95 0.40 - 4.50 mIU/L [facility] Comment: Test Performed at: [place] [address] [place] ??[phone] [facility] Blood 09/28/2023 3:01 PM CDT 09/28/2023 11:49 PM CDT Janet Desai MD CHEMISTRY ORDERABLES Performing Organization Address City/[facility]/ZIP Code Phone Number [facility] [phone] [place] [address] [place] [phone] * (ABNORMAL) COMPREHENSIVE METABOLIC PANEL (09/28/2023 3:01 PM CDT) GLUCOSE 95 65 - 99 mg/dL [facility] Comment: ? Fasting reference interval BUN 16 7 - 25 mg/dL [facility] CREATININE 1.13 0.60 - 1.26 mg/dL [facility] GFR 86 > OR = 60 mL/min/1. 73m2 [facility] BUN/CREAT RATIO SEE NOTE: 6 - 22 (calc) [facility] Comment: ?? Not Reported: BUN and Creatinine are within ?? reference range. ? SODIUM 136 135 - 146 mmol/L [facility] POTASSIUM 4.5 3.5 - 5.3 mmol/L [facility] CHLORIDE 99 98 - 110 mmol/L [facility]S [facility] CO2 29 20 - 32 mmol/L [facility] CALCIUM 9.6 8.6 - 10.3 mg/dL [facility] TOTAL PROTEIN 8.3(H) 6.1 - 8.1 g/dL [facility] ALBUMIN 4.5 3.6 - 5.1 g/dL [facility] GLOBULIN 3.8(H) 1.9 - 3.7 g/dL (calc) [facility] ALBUMIN/GLOBULIN RATIO 1.2 1.0 - 2.5 (calc) [facility] [place] BILIRUBIN TOTAL 0.5 0.2 - 1.2 mg/dL [facility] ALKALINE PHOSPHATASE 72 36 - 130 U/L [facility] AST 70(H) 10 - 40 U/L [facility] ALT 132(H) 9 - 46 U/L [facility] Comment: Test Performed at: [facility] [address] [place] ??[phone] Maribell Carver Blood 09/28/2023 3:01 PM CDT 09/28/2023 11:49 PM CDT Janet Desai MD CHEMISTRY ORDERABLES [facility] [phone] [place] [address] [place] [address] * (ABNORMAL) CBC WITH DIFFERENTIAL (09/28/2023 3:01 PM CDT) WBC 7.5 3.8 - 10.8 Thousand/ uL [facility] RBC 5.06 4.20 - 5.80 Million/u L [facility] HEMOGLOBIN 14.6 13.2 - 17.1 g/dL [facility] HEMATOCRIT 45.7 38.5 - 50.0 % [facility] MCV 90.3 80.0 - 100.0 fL [facility] MCH 28.9 27.0 - 33.0 pg [facility] MCHC 31.9(L) 32.0 - 36.0 g/dL [facility] RDW 12.2 11.0 - 15.0 % [facility] PLATELETS 136(L) 140 - 400 Thousand/ uL [facility] MPV 13.0(H) 7.5 - 12.5 fL [facility] NEUTROPHIL ABSOLUTE 4,410 1,500 - 7,800 cells/uL [facility] LYMPHOCYTE ABSOLUTE 2,460 850 - 3,900 cells/uL [facility] MONOCYTE ABSOLUTE 480 200 - 950 cells/uL [facility] EOSINOPHIL ABSOLUTE 113 15 - 500 cells/uL [facility] BASOPHILS ABSOLUTE 38 0 - 200 cells/uL [facility] NEUTROPHIL 58.8 % [facility] LYMPHOCYTES 32.8 % [facility] MONOCYTE 6.4 % [facility] EOSINOPHILS 1.5 % [facility] BASOPHILS 0.5 % [facility] Comment: Test Performed at: [place] [address] [place] ??[phone] Maribell Carver Blood 09/28/2023 3:01 PM CDT 09/28/2023 11:49 PM CDT Janet Desai MD HEMATOLOGY ORDERABLE S [facility] [phone] [place] [address] [place] [address] documented in this encounter Visit Diagnoses Diagnosis Cold sweat- Primary Nausea Nausea alone Fatigue, unspecified type Abnormal weight loss Loss of weight Chronic hepatitis C without hepatic coma History of narcotic addiction Opioid type dependence, in remission History of ETOH abuse Nondependent alcohol abuse, in remission Mixed anxiety and depressive disorder Dysthymic disorder High serum protein level documented in this encounter Additional Health Concerns Assessment Noted Time PHQ-9 Depression Total Score: 2 09/28/19 24 3:00 PM CDT documented as of this encounter
--- OUTSIDE RECORDS SUMMARY | 2024-02-28 22:28 | XMS_ITS | Encounter Summary ---
Author Organization [facility] Address [address] [facility] Attn: Epic Prelude ADT ARIK QUINTERO [address] Care Team Providers Care Preparation Supervisor Canning Name Role Phone Unavailable Primary Care Provider Unavailabl e Encounter Details Date Type Department Care Team (Latest Contact Info) Description 02/26/2020 Travel Social History Tobacco Use Types Packs/Day [...] COVID-19? No / Unsure 02/26/2020 2:10 PM FISH PEDDLER documented as of this encounter Plan of Treatment Upcoming Encounters Date Type Department Care Team (Late st Contact Info) Description 03/27/2024 2:45 PM FISH PEDDLER Office Visit [facility] Oncology and Hematology - [place] [address] [facility] [address] [place] [address] True Wilson MD [address] [facility] [address] [place] [address] documented as of this encounter Visit Diagnoses Not on filedocumented in this encounter Additional Health Concerns Assessment Noted Time PHQ-9 Depression Total Score: 4 02/25/19 21 3:00 PM FISH PEDDLER documented as of this encounter
--- OUTSIDE RECORDS SUMMARY | 2024-02-28 22:28 | XMS_ITS | Encounter Summary ---
Author Organization [facility] Address [address] [place] [address] Care Team Providers Care Plan Nurse Name Role Phone Unavailable Primary Care Provider Unavailabl e Reason for Visit * Reason Onset Date Comments Medication Refill 01/05/2021 Encounter Details Date Type Department Care Team (Late Contact Info) Description 01/05/2021 Refill [facility] [place] [employer] [place] [address] [place] [address] Sim Velásquez MD NO ADDRESS ON FILE Anxiety state; Attention deficit disorder (ADD) in adult Social [...] COVID-19? 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 BOX BLANK MACHINE FEEDER documented as of this encounter Miscellaneous Notes * Telephone Encounter - Lilibeth Ayon RN - 01/05/2021 9:55 AM CST Pt's called stating at pt's last office visit on 12/23/20 he was told to increase his adderall to 20mg daily in the afternoon and he is needing a refill. BLANK MACHINE FEEDER documented in this encounter Plan of Treatment Upcoming Encounters Date Type Department Care Team (Late Contact Info) Description 03/27/2024 2:45 PM BOX BLANK MACHINE FEEDER Office Visit [facility] Oncology and Hematology - Neri [address] [facility] [place] [address] True Wilson MD [address] [facility] [address] [place] [address] documented as of this encounter Visit Diagnoses Diagnosis Anxiety state Anxiety state, unspecified Attention deficit disorder (ADD) in adult documented in this encounter Additional Health Concerns Assessment Noted Time PHQ-9 Depression Total Score: 4 02/25/19 21 3:00 PM BOX BLANK MACHINE FEEDER documented as of this encounter
--- OUTSIDE RECORDS SUMMARY | 2024-02-28 22:28 | XMS_ITS | Encounter Summary ---
Author Organization [facility] Healthcare Address [address] [place] [address] Care Team Providers Care Glass Blower Helper Name Role Phone Unknown, Pallavi Primary Care Provider Unavail able Encounter Details Date Type Department Care Team (Latest Contact Info) Description 12/10/2017 9:27 AM CDT - 12/10/2017 11:59 PM CDT Hospital Encounter [facility] Discharge Disposition: Discharge to home or self care Social History Tobacco Use Types Packs/Day Years Used Date Smoking Tobacco: Never Assessed Sex and Gender Information Value Date Recorded Sex Assigned at Not on file Legal Sex Male 4:57 AM PRODUCT MANAGEMENT MANAGER Gender Identity Not on file Sexual Orientation Not on file documented as of this encounter Medications at Time of Discharge FLUoxetine (PROzac) 40 mg capsule Take 1 capsule (40 mg total) by mouth daily 10/25/2014 documented as of this encounter Discharge Disposition Disposition Code Departure Means Destination Discharge to home or self care documented in this encounter Plan of Treatment Not on file documented as of this encounter Visit Diagnoses Not on filedocumented in this encounter Care Teams Glass Blower Helper Relationship Specialty Start Date End Date UnknownPallavi PCP - General 12/10/17 02/23/24 documented as of this encounter
--- OUTSIDE RECORDS SUMMARY | 2024-02-28 22:28 | XMS_ITS | Encounter Summary ---
Author Organization [facility] Healthcare Address [address] [place] [address] Care Team Providers Care Human Services Instructor Name Role Phone Unknown, Notinfile Primary Care Provider Unavail able Reason for Visit * Reason Comments Addiction Problem Encounter Details Date Type Department Care Team (Late st Contact Info) Description 10/25/2019 2:48 AM CDT - 10/25/2019 3:08 AM CDT Emergency [facility] Emergency Department [address] [place] [address] Artem Soriano MD 1 [facility] [place] [address] [place] [id number] Discharge Disposition: Left without being seen Social History Tobacco Use Types Packs/Day Years Used Date Smoking Tobacco: Never Assessed Sex and Gender Information Value Date Recorded Sex Assigned at Not on file Legal Sex Male 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 TEST 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 Gender Identity Not on file Sexual Orientation Not on file documented as of this encounter Last Filed Vital Signs Vital Sign Reading Time Taken Comments Blood Pressure 153/83 10/25/2019 3:02 AM CDT Pulse 108 10/25/2019 3:02 AM CDT Temperature 36.7 ??C (98.1 ??F) 10/25/2019 3:02 AM CD T Respiratory Rate 18 10/25/2019 3:02 AM CDT Oxygen Saturation 99% 10/25/2019 3:02 AM CDT Inhaled Oxygen Concentration - - Weight 72.6 kg (160 lb) 10/25/2019 3:02 AM CDT Height 182.9 cm (6') 10/25/2019 3:02 AM CDT Body Mass Index 21.7 10/25/2019 3:02 AM CDT documented in this encounter Discharge Diagnoses Diagnosis Procedure and treatment not carried out due to patient leaving prior to being seen by health care provider - PROCEDURE AND TREATMENT NOT CARRIED OUT DUE TO PATIENT LEAVING PRIOR TO BEING SEEN BY HEALTH CARE [place] documented in this encounter Medications at Time of Discharge FLUoxetine (PROzac) 40 mg capsule Take 1 capsule (40 mg total) by mouth daily 10/25/2014 documented as of this encounter Discharge Disposition Disposition Code Departure Means Destination Left without being seen documented in this encounter ED Notes * Kassandra Solis RN - 10/25/2019 2:56 AM CDT Pt 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 Pt denies ingesting any of the spray. Pt reports he is hot and felt like he was going to pass out. Pt arrives a & o x4, concerned he was poisoned by something he did not ingest. documented in this encounter Plan of Treatment Not on file documented as of this encounter Visit Diagnoses Not on filedocumented in this encounter Care Teams Human Services Instructor Relationship Specialty Start Date End Date Unknown, Notinfile PCP - General 12/10/17 02/23/24 documented as of this encounter
--- OUTSIDE RECORDS SUMMARY | 2024-02-28 22:28 | XMS_ITS | Encounter Summary ---
Author Organization [facility] Address [address] [place] [address] Care Team Providers Care Junk Removal Specialist Name Role Phone Unavailable Primary Care Provider Unavailabl e Encounter Details Date Type Department Care Team (Late st Contact Info) Description 09/23/[address] [facility] at Work [email or web address] [place] [address] [place] [id number] Sim Velásquez MD NO ADDRESS ON FILE [...] st Contact Info) Description 03/27/2024 2:45 PM COURTESY BUS DRIVER Office Visit [facility] Oncology and Hematology - [place] [address] [facility] [address] [place] [address] True Wilson MD [address] [facility] [address] [place] [address] documented as of this encounter Visit Diagnoses Diagnosis Anxiety state Anxiety state, unspecified Attention deficit disorder (ADD) in adult documented in this encounter Additional Health Concerns Assessment Noted Time PHQ-9 Depression Total Score: 4 02/25/19 21 3:00 PM COURTESY BUS DRIVER documented as of this encounter
--- OUTSIDE RECORDS SUMMARY | 2024-02-28 22:28 | XMS_ITS | Encounter Summary ---
Author Organization [facility] Address [address] [place] [address] Care Team Providers Care Climate Change Analyst Name Role Phone Unavailable Primary Care Provider Unavailabl e Reason for Visit * Reason Onset Date Comments Question 04/15/2020 Encounter Details Date Type Department Care Team (Late st Contact Info) Description 04/15/2020 Telephone [facility] at Work [employer] [place] [address] [place] [address] Tatianna Elizondo, POINTING MACHINE OPERATOR [address] [facility] [address] [place] [address] Question Social History Tobacco Use Types Packs/Day Years Used Date Smoking Tobacco: Never Smokeless Tobacco: Never Alcohol Use Standard Drinks/Week Comments Yes 0 (1 standard drink = 0.6 oz pur e alcohol) Sex and Gender Information Value Date Recorded Sex Assigned at Not on file Gender Identity Not on file Sexual Orientation Not on file documented as of this encounter Miscellaneous Notes * Telephone Encounter - Anuja Cee - 04/18/2020 7:31 AM CST Pt called last night asking about this medication and stating he has not received a call back. I tried to reach pt this morning regarding this. No answer and no VM set up to leave a message ERY HEAD FORMER * Telephone Encounter - Lilibeth Ayon - 04/15/2020 11:14 AM CST Tried reaching pt to discuss. No answer, no option to leave a message ERY HEAD FORMER * Telephone Encounter - Tatianna Elizondo NP - 04/15/2020 10:47 AM DRAPERY HEAD FORMER According to clinic policy, cannot refill lost or stolen controlled substances. He will need to be seen sign controlled sub agreement and discuss his condition. ERY HEAD FORMER * Telephone Encounter - Lilibeth Ayon - 04/15/2020 10:25 AM CST Pt called stating he lost his klonopin 0.5mg bottle. 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 Pt states he isn't sure what to do. I advised the pt the pharmacy may not allow an early refill but I will talk to the provider and see what can be done. Last refill 03/27/2020 #90 ERY HEAD FORMER documented in this encounter Plan of Treatment Upcoming Encounters Date Type Department Care Team (Late st Contact Info) Description 03/27/2024 2:45 PM DRAPERY HEAD FORMER Office Visit [facility] Oncology and Hematology - [place] [address] [place] [address] [facility] [address] [place] [address] True Wilson MD [address] [facility] [address] [place] [address] documented as of this encounter Visit Diagnoses Not on filedocumented in this encounter Additional Health Concerns Assessment Noted Time PHQ-9 Depression Total Score: 4 02/25/19 21 3:00 PM DRAPERY HEAD FORMER documented as of this encounter
--- OUTSIDE RECORDS SUMMARY | 2024-02-28 22:28 | XMS_ITS | Encounter Summary ---
Author Organization [employer] [facility] Address [address] [place] [address] Care Team Providers Care 3D Modeler Name Role Phone Unavailable Primary Care Provider Unavailabl e Reason for Visit * Reason Onset Date Comments Follow Up 10/22/2022 Encounter Details Date Type Department Care Team (Late st Contact Info) Description 10/22/2022 Telephone [facility] [employer] [place] [address] [place] [address] Vanda Perdue, RICHARD [address] [facility] [employer] [place] [address] [place] [address] Follow Up Social History Tobacco Use Types Packs/Day Years [...] encounter Miscellaneous Notes * Telephone Encounter - Elida Cavazos - 10/26/2022 2:42 PM CDT I've tried calling the patient but he hasn't answered yet. I will keep trying to call the patient until the end of day providing this information. * Telephone Encounter - Vanda Perdue ANP - 10/26/2022 2:28 PM CDT Please contact pt again to inquire if he would like to consider Dr. Simon at [facility] for Hepatitis C treatment. If so , we can fax referral there. [facility] Dr Ladarius Simon, Dr. Curtis Lewis, Dr. Erik Mcgrath [address] (Does Hepatitis C treatment) * Telephone Encounter - Elida Cavazos - 10/22/2022 1:44 PM CDT I tried calling Mr. Akhtar to ask him about his referral and going to [facility] to be treated. But I have not been able to speak with him as of yet. I will try calling back and will let you know if I'm able to get in contact with him. * Telephone Encounter - Lilibeth Ayon RN - 10/22/2022 1:10 PM CDT LM with no pt name giving pt this information. * Telephone Encounter - Vanda Perdue ANP - 10/22/2022 9:03 AM CDT Please advise Brian that I have communicated with Dr. Vallecillo regarding his ADD and mood medication concerns. She would like him to get testing for ADD, or get us the records from past ADD testing. She needs to see those results before she will take over prescribing his ADD medications or make changes in his medicines. Options for testing listed below. Keep the upcoming video visit scheduled with her to review options. Please get official ADD testing done. Locations to call for ADD testing. 1. [facility] - [phone] 2. [facility] [place] - [phone] 3. [facility] - [phone]. 4. [facility] Neuropsych Services - 5. [facility] - [phone] 6. [facility] [phone] 7. [facility] [phone] 8. [facility], - [phone] Also check Psychology Today website for local counselors that do ADD testing. https://www.psychologytoAlorum.com/us/therapists and put in your zip code for counselors near you. documented in this encounter Plan of Treatment Upcoming Encounters Date Type Department Care Team (Late st Contact Info) Description 03/27/2024 2:45 PM INSPECTOR WIRE PRODUCTS Office Visit [facility] Oncology and Hematology - [place] [address] [facility] [address] [place] [address] True Wilson MD [address] [facility] [address] [place] [address] documented as of this encounter Visit Diagnoses Not on filedocumented in this encounter Additional Health Concerns Assessment Noted Time PHQ-9 Depression Total Score: 4 02/25/19 21 3:00 PM INSPECTOR WIRE PRODUCTS documented as of this encounter
--- OUTSIDE RECORDS SUMMARY | 2024-02-28 22:28 | XMS_ITS | Encounter Summary ---
Author Organization [facility] Address [address] [place] [address] Care Team Providers Care Digital Printer Name Role Phone Unavailable Primary Care Provider Unavailabl e Reason for Visit * Reason Onset Date Comments Medication Refill 02/05/2021 Encounter Details Date Type Department Care Team (Late st Contact Info) Description 02/05/2021 Refill [facility] at Work [employer] [place] [address] [place] [place] [address] Sim Velásquez MD NO ADDRESS [...] st Contact Info) Description 03/27/2024 2:45 PM HANDY WORKER Office Visit [facility] Oncology and Hematology - [place] [address] [facility] [address] [place] [address] True Wilson MD [address] [facility] [address] [place] [address] documented as of this encounter Visit Diagnoses Diagnosis Anxiety state Anxiety state, unspecified Attention deficit disorder (ADD) in adult documented in this encounter Additional Health Concerns Assessment Noted Time PHQ-9 Depression Total Score: 4 02/25/19 21 3:00 PM HANDY WORKER documented as of this encounter
--- OUTSIDE RECORDS SUMMARY | 2024-02-28 22:28 | XMS_ITS | Encounter Summary ---
Author Organization [facility] Address [address] [place] [address] Care Team Providers Care Source Inspector Name Role Phone Unavailable Primary Care Provider Unavailabl e Encounter Details Date Type Department Care Team (Late st Contact Info) Description 09/27/2023 External Device Data STL ABSTRACTION Provider, Abstract [...] st Contact Info) Description 03/27/2024 2:45 PM EDUCATIONAL DIAGNOSTICIAN Office Visit [facility] Oncology and Hematology - [place] [address] [place] [address] [facility] [address] [place] [address] True Wilson MD [address] [facility] [address] [place] [address] documented as of this encounter Visit Diagnoses Not on filedocumented in this encounter Additional Health Concerns Assessment Noted Time PHQ-9 Depression Total Score: 4 02/25/19 21 3:00 PM EDUCATIONAL DIAGNOSTICIAN documented as of this encounter
--- OUTSIDE RECORDS SUMMARY | 2024-02-28 22:28 | XMS_ITS | Encounter Summary ---
Author Organization [facility] Address [address] [place] [address] Care Team Providers Care Operational Test Mechanic Name Role Phone Unavailable Primary Care Provider Unavailabl e Reason for Visit * Reason Onset Date Comments Medication Refill 12/18/2020 Encounter Details Date Type Department Care Team (Late Contact Info) Description 12/18/2020 Refill [facility] at [facility] [employer] [place] [address] [place] [address] Sim Velásquez MD NO ADDRESS [...] Telephone Encounter - Lilibeth Ayon RN - 12/18/2020 2:20 PM CDT ARTURO 08/27/2020 Last Refill 09/23/2020 documented in this encounter Plan of Treatment Upcoming Encounters Date Type Department Care Team (Late st Contact Info) Description 03/27/2024 2:45 PM FRESH FOODS CLERK Office Visit [facility] Oncology and Hematology - [place] [address] [facility] [address] [place] [address] [place] [address] True Wilson MD [address] [facility] [address] [place] [address] documented as of this encounter Visit Diagnoses Diagnosis Anxiety state Anxiety state, unspecified Attention deficit disorder (ADD) in adult documented in this encounter Additional Health Concerns Assessment Noted Time PHQ-9 Depression Total Score: 4 02/25/19 21 3:00 PM FRESH FOODS CLERK documented as of this encounter
--- OUTSIDE RECORDS SUMMARY | 2024-02-28 22:28 | XMS_ITS | Encounter Summary ---
Author Organization [facility] Address [address] [place] [address] Care Team Providers Care Banking Consultant Name Role Phone Unavailable Primary Care Provider Unavailabl e Encounter Details Date Type Department Care Team (Latest Contact Info) Description 08/27/2020 2:30 PM CDT Telephone Check Up [facility] at Work [employer] [place] [address] [place] [address] Sim Velásquez MD NO ADDRESS ON FILE Anxiety state (Primary Dx); Attention deficit disorder (ADD) in adult; Heart palpitations Social History Tobacco Use Types Packs/Day Years [...] have Coronavirus / COVID-19? No / Unsure 08/14/2020 5:32 PM CDT documented as of this encounter Progress Notes * Sim Velásquez MD - 08/27/2020 2:52 PM CDT This encounter was completed via audio-only two way synchronous communication. Patient's identity confirmed yes Patient gave verbal consent to have these services billed to their insurance and expressed understanding that co-insurance and deductible may apply: yes Time spent by the provider delivering the care documented in this encounter 16 minutes. Chart reviewed. Patient on several meds. ADD: vyvanse causing stomach issues. Prefers the concerta. The adderall in afternoon does help extend the efficacy. Will chagne back to concerta at 54 mg and continue with addrall at 10 mg. Heart palps: Needs refill toprol. workign well. Anxiety: Needs refill vistaril. Started this from [employer] but it is not in our system/cahrt. Patient to get the dose and call us to report. We will refill with proper information. Takes remeron for mental health and sleep. This is also not in our system. Started from [employer] as well. Will refill. Follow one month with update. patietn to look for mental health team inlcuding psychaitrits and counselors. documented in this encounter Plan of Treatment Upcoming Encounters Date Type Department Care Team (Late st Contact Info) Description 03/27/2024 2:45 PM DONOR SERVICES MANAGER Office Visit [facility] Oncology and Hematology - [place] [address] [facility] [address] [place] [address] True Wilson MD [address] [facility] [address] [place] [address] documented as of this encounter Visit Diagnoses Diagnosis Anxiety state- Primary Anxiety state, unspecified Attention deficit disorder (ADD) in adult Heart palpitations Palpitations documented in this encounter Additional Health Concerns Assessment Noted Time PHQ-9 Depression Total Score: 4 02/25/19 21 3:00 PM DONOR SERVICES MANAGER documented as of this encounter
--- OUTSIDE RECORDS SUMMARY | 2024-02-28 22:28 | XMS_ITS | Encounter Summary ---
Author Organization [facility] Address [address] [place] [address] Care Team Providers Care Fit Model Name Role Phone Unavailable Primary Care Provider Unavailabl e Encounter Details Date Type Department Care Team (Late st Contact Info) Description 04/15/2023 External Device Data STL ABSTRACTION Provider, Abstract [...] st Contact Info) Description 03/27/2024 2:45 PM WINDOW CUTTER Office Visit [facility] Oncology and Hematology - [place] [address] [place] [address] [facility] [address] [place] [address] True Wilson MD [address] [facility] [address] [place] [address] documented as of this encounter Visit Diagnoses Not on filedocumented in this encounter Additional Health Concerns Assessment Noted Time PHQ-9 Depression Total Score: 4 02/25/19 21 3:00 PM WINDOW CUTTER documented as of this encounter
--- OUTSIDE RECORDS SUMMARY | 2024-02-28 22:28 | XMS_ITS | Encounter Summary ---
Author Organization [facility] Address [address] [place] [address] Care Team Providers Care Network Support Name Role Phone Unavailable Primary Care Provider Unavailabl e Reason for Visit * Reason Onset Date Comments Medication Refill 08/26/2020 Encounter Details Date Type Department Care Team (Late Contact Info) Description 08/26/2020 Refill [facility] [employer] [place] [address] [place] [address] Sim Velásquez MD NO ADDRESS ON FILE Social History Tobacco [...] (Late Contact Info) Description 03/27/2024 2:45 PM ENTRY LEVEL MANAGER Office Visit [facility] Oncology and Hematology - [place] [address] [facility] [facility] [address] [place] [address] True Wilson MD [address] [facility] [address] [place] [address] documented as of this encounter Visit Diagnoses Not on filedocumented in this encounter Additional Health Concerns Assessment Noted Time PHQ-9 Depression Total Score: 4 02/25/19 21 3:00 PM ENTRY LEVEL MANAGER documented as of this encounter
--- OUTSIDE RECORDS SUMMARY | 2024-02-28 22:28 | XMS_ITS | Encounter Summary ---
Author Organization [facility] Address [address] [place] [address] Care Team Providers Care Freight Elevator Operator Name Role Phone Unavailable Primary Care Provider Unavailabl e Encounter Details Date Type Department Care Team (Late st Contact Info) Description 02/04/2023 External Device Data STL ABSTRACTION Provider, Abstract [...] st Contact Info) Description 03/27/2024 2:45 PM BLENDING KETTLE TENDER Office Visit [facility] Oncology and Hematology - [place] [address] [place] [address] [facility] [address] [place] [address] True Wilson MD [address] [facility] [address] [place] [address] documented as of this encounter Visit Diagnoses Not on filedocumented in this encounter Additional Health Concerns Assessment Noted Time PHQ-9 Depression Total Score: 4 02/25/19 21 3:00 PM BLENDING KETTLE TENDER documented as of this encounter
--- OUTSIDE RECORDS SUMMARY | 2024-02-28 22:28 | XMS_ITS | Encounter Summary ---
Author Organization [facility] Address [address] [place] [address] Care Team Providers Care Brusher Name Role Phone Unavailable Primary Care Provider Unavailabl e Encounter Details Date Type Department Care Team (Latest Contact Info) Description 12/23/2020 2:00 PM CDT Telephone Check Up [facility] at [employer] [place] [address] [place] [address] Sim Velásquez MD NO ADDRESS ON FILE Anxiety state (Primary Dx); Attention deficit disorder (ADD) in adult; Panic attacks; Heart palpitations; LEVI (generalized anxiety disorder) Social History Tobacco Use Types Packs/Day Years [...] Progress Notes * Sim Velásquez MD - 12/23/2020 2:20 PM CDT This encounter was completed via audio-only two way synchronous communication. Patient's identity confirmed yes Patient gave verbal consent to have these services billed to their insurance and expressed understanding that co-insurance and deductible may apply: yes Time spent by the provider delivering the care documented in this encounter 20 minutes. Patient presents to go over meds and adjust if needed. Recent in patient stay and meds adjusted. I do not have records although patient did give our office information to the hospital. Hope we will get notes. If not we will fax or call for them. As of discharge, he was asked to change to vyvanse (again) and zyprexa was added. Med list reviewed and updated. Patient states that he would like to increase his concerta as the effects are not where he would like. Still struggles with focus as well as anxiety. He does not want to take the vyvanse - thinks adderall and concerta work better. disucssed with patien that he is beyond my expertise and comfort levels. Med doses are high and he is requestiing higher. Also now on myriad of meds to control his anxiety and ADD. Compromise on the following: manda increase concerta to 72 mg in am. manda increae adderal to 20 mg regular in afternoon. He will continue lkexapro at 20 mg. He will contineu remeron at 15 mg He will stay on zyprexa at 5 mg per hospital discharge He will stay on toprol xl at 25 mg daily. Follow up in three weeks with update. It is my opinion he needs high level high risk mental health care by mental health provider. documented in this encounter Plan of Treatment Upcoming Encounters Date Type Department Care Team (Late st Contact Info) Description 03/27/2024 2:45 PM CRYOLITE RECOVERY OPERATOR Office Visit [facility] Oncology and Hematology - [place] [address] [facility] [address] [place] [address] True Wilson MD [address] [facility] [address] [place] [address] documented as of this encounter Visit Diagnoses Diagnosis Anxiety state- Primary Anxiety state, unspecified Attention deficit disorder (ADD) in adult Panic attacks Panic disorder without agoraphobia Heart palpitations Palpitations LEVI (generalized anxiety disorder) Generalized anxiety disorder documented in this encounter Additional Health Concerns Assessment Noted Time PHQ-9 Depression Total Score: 4 02/25/19 21 3:00 PM CRYOLITE RECOVERY OPERATOR documented as of this encounter
--- OUTSIDE RECORDS SUMMARY | 2024-02-28 22:28 | XMS_ITS | Encounter Summary ---
Author Organization [facility] Healthcare Address [address] [place] [address] Care Team Providers Care Negative Stripper Name Role Phone Unavailable Primary Care Provider Unavailabl e Encounter Details Date Type Department Care Team (Late st Contact Info) Description 09/30/2015 8:28 PM CDT - 09/30/2015 11:59 PM CDT Hospital Encounter [facility] Encounter for examination and observation for other specified reasons Social History Tobacco Use Types Packs/Day Years Used Date Smoking Tobacco: Never Assessed Sex and Gender Information Value Date Recorded Sex Assigned at Not on file Legal Sex Male 4:57 AM HEALTH TYPE TECHNICIAN Gender Identity Not on file Sexual Orientation Not on file documented as of this encounter Medications at Time of Discharge FLUoxetine (PROzac) 40 mg capsule Take 1 capsule (40 mg total) by mouth daily 10/25/2014 documented as of this encounter Plan of Treatment Not on file documented as of this encounter Visit Diagnoses Diagnosis Encounter for examination and observation for other specified reasons documented in this encounter
--- OUTSIDE RECORDS SUMMARY | 2024-02-28 22:28 | XMS_ITS | Encounter Summary ---
Author Organization [facility] Address [address] [facility] Attn: Epic Prelude ADT ARIK QUINTERO [phone] Care Team Providers Care Florist Supplies Salesperson Name Role Phone Unavailable Primary Care Provider Unavailabl e Encounter Details Date Type Department Care Team (Latest Contact Info) Description 07/28/2020 Travel Social History Tobacco Use Types Packs/Day [...] st Contact Info) Description 03/27/2024 2:45 PM MASTER AT ARMS Office Visit [facility] Oncology and Hematology - [place] [address] [facility] [address] [place] [address] True Wilson MD [address] [facility] [address] [place] [address] documented as of this encounter Visit Diagnoses Not on filedocumented in this encounter Additional Health Concerns Assessment Noted Time PHQ-9 Depression Total Score: 4 02/25/19 21 3:00 PM MASTER AT AR[employer] documented as of this encounter
--- OUTSIDE RECORDS SUMMARY | 2024-02-28 22:28 | XMS_ITS | Encounter Summary ---
Author Organization [facility] Address [address] [facility] Attn: Epic Prelude ADT ARIK QUINTERO [phone] Care Team Providers Care Brick And Block Mason Name Role Phone Unavailable Primary Care Provider Unavailabl e Encounter Details Date Type Department Care Team (Latest Contact Info) Description 01/07/2021 Travel Social History Tobacco Use Types Packs/Day [...] COVID-19? 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 LIBRARIAN HEAD documented as of this encounter Plan of Treatment Upcoming Encounters Date Type Department Care Team (Late st Contact Info) Description 03/27/2024 2:45 PM LIBRARIAN HEAD Office Visit [facility] Oncology and Hematology - [place] [address] [facility] [address] [place] [address] True Wilson MD [address] [facility] [address] [place] [address] documented as of this encounter Visit Diagnoses Not on filedocumented in this encounter Additional Health Concerns Assessment Noted Time PHQ-9 Depression Total Score: 4 02/25/19 21 3:00 PM LIBRARIAN HEAD documented as of this encounter
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
--- OUTSIDE RECORDS SUMMARY | 2024-02-28 22:28 | XMS_ITS | Encounter Summary ---
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 - 01/23/2012 12:08 AM [facility] Hospital Encounter [facility] Ladarius Lopez MD [address] [facility] [address] [place] [address] Foreign body in cornea; Foreign body accidentally entering eye and adnexa; Accidents occurring in other specified places; Other activity Social History Tobacco Use Types Packs/Day Years Used Date Smoking Tobacco: Never Assessed Sex and Gender Information Value Date Recorded Sex Assigned at Not on file Legal Sex Male 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
--- OUTSIDE RECORDS SUMMARY | 2024-02-28 22:28 | XMS_ITS | Encounter Summary ---
Author Organization [facility] Address [address] [place] [address] Care Team Providers Care Test Inspection Engineer Name Role Phone Unavailable Primary Care Provider Unavailabl e Reason for Visit * Reason Comments Establish Care Encounter Details Date Type Department Care Team (Late st Contact Info) Description 02/26/2020 2:00 PM SINGING MESSENGER Office Visit [facility] at Work [employer] [place] [address] [place] [address] Tatianna Elizondo, JEYSON [address] [facility] [address] [place] [address] Precordial pain (Primary Dx); Family history of premature CAD; Anxiety state; Panic attacks Social History Tobacco Use Types Packs/Day Years [...] COVID-19? No / Unsure 02/26/2020 2:10 PM SINGING MESSENGER documented as of this encounter Last Filed Vital Signs Vital Sign Reading Time Taken Comments Blood Pressure 130/84 02/26/2020 2:12 PM SINGING MESSENGER Pulse 95 02/26/2020 2:12 PM SINGING MESSENGER Temperature 36.2 ??C (97.1 ??F) 02/26/2020 2:12 PM CS T Respiratory Rate 16 02/26/2020 2:12 PM SINGING MESSENGER Oxygen Saturation 97% 02/26/2020 2:12 PM SINGING MESSENGER Inhaled Oxygen Concentration - - Weight 87.1 kg (192 lb) 02/26/2020 2:12 PM SINGING MESSENGER Height 182.9 cm (6') 02/26/2020 2:12 PM SINGING MESSENGER Body Mass Index 26.04 02/26/2020 2:12 PM SINGING MESSENGER documented in this encounter Progress Notes * Tatianna Elizondo, RADIAL SAW OPERATOR - 02/26/2020 2:20 PM CST HISTORY OF PRESENT ILLNESS Brian Akhtar is a 34 y.o. male who presents for Chief Complaint Patient presents with ??? Establish [facility]. Has had hx of anxiety, panic attacks, chest pain. Family hx of premature CAD- Age50 father-[place], uncle age 49 [place]. Mother hx of CABG. Pt has chest pain every day with exertion or rest. 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 Has had work up done in the remote past for chest pain. EKGs done in the past. Holter recommended, did not get it done. States had an episode of HR 140's. Was put on BP pill Metoprolol- 1 1/2 year ago. Still had the palpitations, he stopped taking it. Did not have a stress test done. Treated with Klonopin for panic attacks and stopped it. He was taking Klonopin 1 mg TID after he stopped it had severe withdrawal. Buspar did not help. Was on Citalopram 40 mg, it helped but then he stopped taking it and then restarted on 40mg and could not tolerate it. Currently not on any medications for the last 8 months. Would like to restart tx. Denies having a hx of drug addiction, drinks alcohol one day a week on the weekends 4-5 beers at a time. Very limited caffeine intake-Dr Ocampo, denies energy drink use, denies drug use. Used cocaine as ateen. Past Medical History: Diagnosis Date ??? Anxiety Current Outpatient Medications Medication Sig Dispense Refill ??? clonazePAM (KlonoPIN) 0.5 mg Tablet Take 1 Tablet (0.5 mg) by mouth 3 times daily as needed forAnxiety. 45 Tablet 0 ??? escitalopram oxalate (LEXAPRO) 10 mg tablet Take 1 Tablet (10 mg) by mouth daily. 30 Tablet 0 No current facility-administered medications for this visit. Allergies Allergen Reactions ??? Ivp Dye [Iodinated Contrast Media] Anaphylaxis BP 130/84 (BP Location: Left arm, Patient Position (BP): Sitting, BP Cuff Size: Adult) Pulse 95 Temp 97.1 ??F (36.2 ??C) (Tympanic) Resp 16 Ht 6' (1.829 m) Wt 87.1 kg (192 lb) SpO2 97% BMI 26.04 kg/m?? MEDICAL RECORD UPDATE Past Medical History: Diagnosis Date ??? Anxiety Past Surgical History: Procedure Laterality Date ??? HX HIP REPLACEMENT Right Family History Problem Relation Name Age of Onset ??? Heart Attack Father ??? No Known Problems Mother ??? No Known Problems Sister ??? No Known Problems Brother ??? COPD Maternal Grandmother ??? Alcohol abuse Maternal Grandfather ??? Brain Cancer Paternal Grandmother ??? Stomach Cancer Paternal Grandfather ??? No Known Problems Daughter ??? No Known Problems Son ??? No Known Problems Brother ??? No Known Problems Brother ??? No Known Problems Sister Current medications and allergies were reviewed and updated in computerized patient record. [facility] #[id number] [facility] Care Providers: No care seam steamer to display No Patient Care Coordination Note on file. Vital signs/Tobacco use BP 130/84 (BP Location: Left arm, Patient Position (BP): Sitting, BP Cuff Size: Adult) Pulse 95 Temp 97.1 ??F (36.2 ??C) (Tympanic) Resp 16 Ht 6' (1.829 m) Wt 87.1 kg (192 lb) SpO2 97% BMI 26.04 kg/m?? Blood Pressure BP Readings from Last 3 Encounters: 02/26/20 130/84 BMI POC (QM) Body mass index is 26.04 kg/m??. Normal BMI range: 18 & older: > or = 18.5 and < 25 Abnormal high BMI: Patient counseled on lifestyle modifications including weight loss and daily exercise. The CVD Risk score (D'Agostino, et al., 2008) failed to calculate for the following reasons: Cannot find a previous HDL lab Cannot find a previous total cholesterol lab Consider Statins if 10 year risk >7.5-10% Tobacco Use (QM) reports that he has never smoked. He has never used smokeless tobacco. He is not a tobacco user. Anxiety Disorder (GAD7): 1. Feeling nervous, anxious, or on edge:: Nearly every day (02/26/201499) 2. Not been able to stop or control worrying:: Nearly every day (02/26/201499) 3. Worrying too much about different things:: Nearly every day (02/26/201499) 4.Trouble relaxing:: Nearly every day (02/26/201499) 5. Being so restless that it is hard to sit still:: Nearly every day (02/26/201499) 6. Becoming easily annoyed or irritatble:: Nearly every day (02/26/201499) 7. Feeling afraid as if something awful might happen:: Nearly every day (02/26/201499) If you checked off any problems, how difficult have these made it for you to do your work, take care of things at home, or get along with other people?: Extremely difficult (02/26/201499) Anxiety Score: 21 (02/26/201499) DEPRESSION SCREENING (QM) PHQ2: Positive: PHQ-2 score > 2 or PHQ-9 score > 9 PHQ-2 Total: 4 (02/26/201499) PHQ-9 Total: 15 (02/26/201499) He was given a prescription for an antidepressant EXAMINATION REVIEW OF SYSTEMS Review of Systems Constitutional: Negative for chills, fever and malaise/fatigue. Respiratory: Negative for cough, shortness of breath and wheezing. Cardiovascular: Positive for chest pain. Negative for palpitations. Almost daily chest pain, left sided with radiation down left arm. Intermittently assoc with nausea,sweating. Denies SOB. Gastrointestinal: Positive for nausea. Negative for vomiting. Neurological: Negative for dizziness and headaches. Psychiatric/Behavioral: Negative for depression. The patient is nervous/anxious and has insomnia. Objective PHYSICAL EXAM Physical Exam Constitutional: Appearance: Normal appearance. He is well-developed. HENT: Head: Normocephalic and atraumatic. Nose: Nose normal. Eyes: Conjunctiva/sclera: Conjunctivae normal. Neck: Thyroid: No thyroid mass, thyromegaly or thyroid tenderness. Vascular: No carotid bruit. Cardiovascular: Rate and Rhythm: Normal rate and regular rhythm. Heart sounds: Normal heart sounds, S1 normal and S2 normal. No murmur. No friction rub. No gallop. Pulmonary: Effort: Pulmonary effort is normal. No respiratory distress. Breath sounds: Normal breath sounds. No wheezing or rales. Abdominal: General: Abdomen is flat. Bowel sounds are normal. Palpations: Abdomen is soft. Tenderness: There is no abdominal tenderness. There is no right CVA tenderness, left CVA tenderness, guarding or rebound. Musculoskeletal: Right lower leg: No edema. Left lower leg: No edema. Skin: General: Skin is warm and dry. Neurological: Mental Status: He is alert and oriented to person, place, and time. No results found for any visits on 02/26/20 (from the past 24 hour(s)). ASSESSMENT and PLAN: Brian was seen today for establish care. Diagnoses and all orders for this visit: Precordial pain - EKG 12-LEAD - STRESS ECHO EXERCISE; Future - ECHO COMPLETE W SAME DAY STRESS; Future Family history of premature CAD - EKG 12-LEAD - STRESS ECHO EXERCISE; Future - ECHO COMPLETE W SAME DAY STRESS; Future Anxiety state Panic attacks Other orders - Cancel: ECHO STRESS TEST EXERCISE; Future - Cancel: ECHO COMPLETE; Future - Discontinue: escitalopram oxalate (LEXAPRO) 20 mg tablet; Take 1 Tablet (20 mg) by mouth daily. Chest pain- risk factor- family hx of premature CAD. Echo. Rule out ischemia-EKG normal. BP, HR stable today. Anxiety with panic attacks-Lexapro 10 mg daily, follow up in 1 month. Klonopin 0.5 mg BID for anxiety, panic. Discussed possible side effects of Lexapro, takes 4-6 weeks to begin to see improvement. Call if any suicidal thoughts, worsening of anxiety. Take with food to minimize nausea, take at night. Nausea can dissipate in 1-2 weeks. Enc PAS, given information to access telephonic counseling. Discussed plan to use Klonopin short term while SSRI begins to give improvement. Avoid alcohol use with medications discussed. Discussed alcohol plus benzodiazepine can cause excessive sedation, resp depression, . ING MESSENGER documented in this encounter Miscellaneous Notes * Patient Instructions - Tatianna Elizondo NP - 02/26/2020 2:51 PM SINGING MESSENGER Images from the original note were not included. Anxiety Disorder: Care Instructions Your Care Instructions Anxiety is a normal reaction to stress. Difficult situations can cause you to have symptoms such assweaty palms and a nervous feeling. In an anxiety disorder, the symptoms are far more severe. Constant worry, muscle tension, trouble sleeping, nausea and diarrhea, and other symptoms can make normal daily activities difficult or impossible. These symptoms may occur for no reason, and they can affect your work, school, or social life. Medicines, counseling, and self-care can all help. Follow-up care is a dunn part of your treatment and safety. Be sure to make and go to all appointments, and call your doctor if you are having problems. It's also a good idea to know your test resultsand keep a list of the medicines you take. How can you care for yourself at home? ?? Take medicines exactly as directed. Call your doctor if you think you are having a problem with your medicine. ?? Go to your counseling sessions and follow-up appointments. ?? Recognize and accept your anxiety. Then, when you are in a situation that makes you anxious, sayto yourself, This is not an emergency. I feel uncomfortable, but I am not in danger. I can keep going even if I feel anxious. ?? Be kind to your body: ? Relieve tension with exercise or a massage. ? Get enough rest. ? Avoid alcohol, caffeine, nicotine, and illegal drugs. They can increase your anxiety level and cause sleep problems. ? Learn and do relaxation techniques. See below for more about these techniques. ?? Engage your mind. Get out and do something you enjoy. Go to a funny movie, or take a walk or hike. Plan your day. Having too much or too little to do can make you anxious. ?? Keep a record of your symptoms. Discuss your fears with a good friend or family member, or join a support group for people with similar problems. Talking to others sometimes relieves stress. ?? Get involved in social groups, or volunteer to help others. Being alone sometimes makes things seem worse than they are. ?? Get at least 30 minutes of exercise on most days of the week to relieve stress. Walking is a good choice. You also may want to do other activities, such as running, swimming, cycling, or playing tennis or team sports. Relaxation techniques Do relaxation exercises 10 to 20 minutes a day. You can play soothing, relaxing music while you do them, if you wish. ?? Tell others in your house that you are going to do your relaxation exercises. Ask them not to disturb you. ?? Find a comfortable place, away from all distractions and noise. ?? Lie down on your back, or sit with your back straight. ?? Focus on your breathing. Make it slow and steady. ?? Breathe in through your nose. Breathe out through either your nose or mouth. ?? Breathe deeply, filling up the area between your navel and your rib cage. Breathe so that your belly goes up and down. ?? Do not hold your breath. ?? Breathe like this for 5 to 10 minutes. Notice the feeling of calmness throughout your whole body. As you continue to breathe slowly and deeply, relax by doing the following for another 5 to 10 minutes: ?? Tighten and relax each muscle group in your body. You can begin at your toes and work your way up to your head. ?? Imagine your muscle groups relaxing and becoming heavy. ?? Empty your mind of all thoughts. ?? Let yourself relax more and more deeply. ?? Become aware of the state of calmness that surrounds you. ?? When your relaxation time is over, you can bring yourself back to alertness by moving your fingers and toes and then your hands and feet and then stretching and moving your entire body. Sometimes people fall asleep during relaxation, but they usually wake up shortly afterward. ?? Always give yourself time to return to full alertness before you drive a car or do anything thatmight cause an accident if you are not fully alert. Never play a relaxation tape while you drive a car. When should you call for help? Wtgp103 anytime you think you may need emergency care. For example, call if: ?? You feel you cannot stop from hurting yourself or someone else. Keep the numbers for these national suicide hotlines: 8-919-378-TALK ( ) and 1-712-JVGOIQM ( ). If you or someone you know talks about suicide or feeling hopeless, get help right away. Watch closely for changes in your health, and be sure to contact your doctor if: ?? You have anxiety or fear that affects your life. ?? You have symptoms of anxiety that are new or different from those you had before. Where can you learn more? Go to https://www.Next New Networks.net/patiented Enter P754 in the search box to learn more about Anxiety Disorder: Care Instructions. Current as of: March 23, 2019?Content Version: 12.5 ?? [employer], [employer]. Care instructions adapted under license by your healthcare professional. If you have questions about a medical condition or this instruction, always ask your healthcare professional. These instructions may not represent the values of this healthcare organization. [employer] disclaims any warranty or liability for your use of this information. Anxiety: How to Change Anxious Thoughts (03:01) Your health professional recommends that you watch this short online health video. Practice recognizing and replacing thoughts that cause anxiety. How to watch the video Scan the QR code OR Visit the website https://VMwarei.se/r/Ajii32mtaom5j Current as of: March 23, 2019?Content Version: 12.5 ?? [employer], [employer]. Care instructions adapted under license by your healthcare professional. If you have questions about a medical condition or this instruction, always ask your healthcare professional. These instructions may not represent the values of this healthcare organization. [employer] disclaims any warranty or liability for your use of this information. Panic Attacks: Care Instructions Your Care Instructions During a panic attack, you may have a feeling of intense fear or terror, trouble breathing, chest pain or tightness, heartbeat changes, dizziness, sweating, and shaking. A panic attack starts suddenly and usually lasts from 5 to 20 minutes but may last even longer. You have the most anxiety about 10 minutes after the attack starts. An attack can begin with a stressful event, or it can happen without a cause. Although panic attacks can cause scary symptoms, you can learn to manage them with self-care, counseling, and medicine. Follow-up care is a dunn part of your treatment and safety. Be sure to make and go to all appointments, and call your doctor if you are having problems. It's also a good idea to know your test resultsand keep a list of the medicines you take. How can you care for yourself at home? ?? Take your medicine exactly as directed. Call your doctor if you think you are having a problem with your medicine. ?? Go to your counseling sessions and follow-up appointments. ?? Recognize and accept your anxiety. Then, when you are in a situation that makes you anxious, sayto yourself, This is not an emergency. I feel uncomfortable, but I am not in danger. I can keep going even if I feel anxious. ?? Be kind to your body: ? Relieve tension with exercise or a massage. ? Get enough rest. ? Avoid alcohol, caffeine, nicotine, and illegal drugs. They can increase your anxiety level, causesleep problems, or trigger a panic attack. ? Learn and do relaxation techniques. See below for more about these techniques. ?? Engage your mind. Get out and do something you enjoy. Go to a funKiptronic movie, or take a walk or hike. Plan your day. Having too much or too little to do can make you anxious. ?? Keep a record of your symptoms. Discuss your fears with a good friend or family member, or join a support group for people with similar problems. Talking to others sometimes relieves stress. ?? Get involved in social groups, or volunteer to help others. Being alone sometimes makes things seem worse than they are. ?? Get at least 30 minutes of exercise on most days of the week to relieve stress. Walking is a good choice. You also may want to do other activities, such as running, swimming, cycling, or playing tennis or team sports. Relaxation techniques Do relaxation exercises for 10 to 20 minutes a day. You can play soothing, relaxing music while youdo them, if you wish. ?? Tell others in your house that you are going to do your relaxation exercises. Ask them not to disturb you. ?? Find a comfortable place, away from all distractions and noise. ?? Lie down on your back, or sit with your back straight. ?? Focus on your breathing. Make it slow and steady. ?? Breathe in through your nose. Breathe out through either your nose or mouth. ?? Breathe deeply, filling up the area between your navel and your rib cage. Breathe so that your belly goes up and down. ?? Do not hold your breath. ?? Breathe like this for 5 to 10 minutes. Notice the feeling of calmness throughout your whole body. As you continue to breathe slowly and deeply, relax by doing the following for another 5 to 10 minutes: ?? Tighten and relax each muscle group in your body. You can begin at your toes and work your way up to your head. ?? Imagine your muscle groups relaxing and becoming heavy. ?? Empty your mind of all thoughts. ?? Let yourself relax more and more deeply. ?? Become aware of the state of calmness that surrounds you. ?? When your relaxation time is over, you can bring yourself back to alertness by moving your fingers and toes and then your hands and feet and then stretching and moving your entire body. Sometimes people fall asleep during relaxation, but they usually wake up shortly afterward. ?? Always give yourself time to return to full alertness before you drive a car or do anything thatmight cause an accident if you are not fully alert. Never play a relaxation tape while driving a car. When should you call for help? [id number] anytime you think you may need emergency care. For example, call if: ?? You feel you cannot stop from hurting yourself or someone else. Watch closely for changes in your health, and be sure to contact your doctor if: ?? Your panic attacks get worse. ?? You have new or different anxiety. ?? You are not getting better as expected. Where can you learn more? Go to https://www.healthwise.net/patiented Enter H601 in the search box to learn more about Panic Attacks: Care Instructions. Current as of: March 23, 2019?Content Version: 12.5 ?? [employer]. Care instructions adapted under license by your healthcare professional. If you have questions about a medical condition or this instruction, always ask your healthcare professional. These instructions may not represent the values of this healthcare organization. [employer] disclaims any warranty or liability for your use of this information. Is It a Heart Attack? (02:14) Your health professional recommends that you watch this short online health video. Hear a story about how heart attacks may feel different than you expect. How to watch the video Scan the QR code OR Visit the website https://Aspire.Zmqnw.com.cn/r/G7omexfztczvk Current as of: February 05, 2019?Content Version: 12.5 ?? [employer]. Care instructions adapted under license by your healthcare professional. If you have questions about a medical condition or this instruction, always ask your healthcare professional. These instructions may not represent the values of this healthcare organization. [employer] disclaims any warranty or liability for your use of this information. ING MESSENGER documented in this encounter Plan of Treatment Upcoming Encounters Date Type Department Care Team (Late st Contact Info) Description 03/27/2024 2:45 PM SINGING MESSENGER Office Visit [facility] Oncology and Hematology - [place] [address] [facility] [address] [place] [address] True Wilson MD [address] [facility] [address] [place] [address] Scheduled Orders Name Type Priority Associated Diagnoses Orde r Schedule EKG 12-LEAD ECG Routine Precordial pain Family history of premature CAD Ordered: 02/26/2020 documented as of this encounter Visit Diagnoses Diagnosis Precordial pain- Primary Family history of premature CAD Family history of ischemic heart disease Anxiety state Anxiety state, unspecified Panic attacks Panic disorder without agoraphobia documented in this encounter Additional Health Concerns Assessment Noted Time PHQ-9 Depression Total Score: 4 02/25/19 21 3:00 PM SINGING MESSENGER documented as of this encounter
--- OUTSIDE RECORDS SUMMARY | 2024-02-28 22:28 | XMS_ITS | Encounter Summary ---
Author Organization [facility] Address [address] [place] [address] Care Team Providers Care Senior Water Resources Engineer Name Role Phone Unavailable Primary Care Provider Unavailabl e Encounter Details Date Type Department Care Team (Late st Contact Info) Description 03/23/2023 External Device Data STL ABSTRACTION Provider, Abstract [...] st Contact Info) Description 03/27/2024 2:45 PM MOPHEAD SEWER Office Visit [facility] Oncology and Hematology - [place] [address] [place] [address] [facility] [address] [place] [address] True Wilson MD [address] [facility] [address] [place] [address] documented as of this encounter Visit Diagnoses Not on filedocumented in this encounter Additional Health Concerns Assessment Noted Time PHQ-9 Depression Total Score: 4 02/25/19 21 3:00 PM MOPHEAD SEWER documented as of this encounter
--- OUTSIDE RECORDS SUMMARY | 2024-02-28 22:28 | XMS_ITS | Encounter Summary ---
Author Organization [facility] Address [address] [place] [address] Care Team Providers Care Tag Clerk Name Role Phone Unavailable Primary Care Provider Unavailabl e Reason for Visit * Reason Onset Date Comments Medication Refill 02/17/2021 Encounter Details Date Type Department Care Team (Late st Contact Info) Description 02/17/2021 Refill [facility] at Work [employer] [place] [address] [place] [address] Sim Velásquez MD NO ADDRESS [...] (Late Contact Info) Description 03/27/2024 2:45 PM ABRASIVE BAND WINDER Office Visit [facility] Oncology and Hematology - [place] [address] [facility] [address] [place] [address] True Wilson MD [address] [facility] [address] [place] [address] documented as of this encounter Visit Diagnoses Diagnosis Anxiety state Anxiety state, unspecified Attention deficit disorder (ADD) in adult documented in this encounter Additional Health Concerns Assessment Noted Time PHQ-9 Depression Total Score: 4 02/25/19 21 3:00 PM ABRASIVE BAND WINDER documented as of this encounter
--- OUTSIDE RECORDS SUMMARY | 2024-02-28 22:28 | XMS_ITS | Encounter Summary ---
Author Organization [facility] Address [address] [place] [address] Care Team Providers Care Domestic Violence Counselor Name Role Phone Unavailable Primary Care Provider Unavailabl e Reason for Visit * Reason Onset Date Comments Erroneous encounter-disregard 08/14/2020 Encounter Details Date Type Department Care Team (Late Contact Info) Description 08/14/2020 Nurse Triage [facility] Nurse event specialist food demonstrator [address] [place] [address] Dinorah Bullock RN Social History Tobacco Use Types Packs/Day Years [...] st Contact Info) Description 03/27/2024 2:45 PM LOCAL TRUCK DRIVER [facility] Oncology and Hematology - Neri [address] [facility] [address] [place] [address] True Wilson MD [address] [facility] [address] [place] [address] documented as of this encounter Visit Diagnoses Not on filedocumented in this encounter Additional Health Concerns Assessment Noted Time PHQ-9 Depression Total Score: 4 02/25/19 21 3:00 PM LOCAL TRUCK DRIVER documented as of this encounter
--- OUTSIDE RECORDS SUMMARY | 2024-02-28 22:28 | XMS_ITS | Encounter Summary ---
Author Organization [facility] Address [address] [place] [address] Care Team Providers Care Commercial Coordinator Name Role Phone Unavailable Primary Care Provider Unavailabl e Reason for Visit * Reason Comments Follow Up Encounter Details Date Type Department Care Team (Late st Contact Info) Description 07/28/2020 3:00 PM CDT Office Visit [facility] [place] [address] [place] [address] Sim Velásquez MD NO ADDRESS [...] PM CDT documented as of this encounter Last Filed Vital Signs Vital Sign Reading Time Taken Comments Blood Pressure 136/80 07/28/2020 2:53 PM CDT Pulse 79 07/28/2020 2:53 PM CDT Temperature 36.3 ??C (97.3 ??F) 07/28/2020 2:53 PM CD T Respiratory Rate 18 07/28/2020 2:53 PM CDT Oxygen Saturation 98% 07/28/2020 2:53 PM CDT Inhaled Oxygen Concentration - - Weight 95.7 kg (211 lb) 07/28/2020 2:53 PM CDT Height - - Body Mass Index 28.62 02/26/2020 2:12 PM TITLE ONE KINDERGARTEN TEACHER documented in this encounter Progress Notes * Sim Velásquez MD - 07/28/2020 2:54 PM CDT HISTORY OF PRESENT ILLNESS Brian Akhtar, a 34 y.o. male presents with a chief complaint of Chief Complaint Patient presents with ??? Follow Up Subjective HPI Follows for meds. Has been seen here in past by INTEGRATION ARCHITECT. Has been taking lexapro. Was recently treated for alcohol use disorder. Presents for med refills and discussion. Is taking med for alcohol use per the center. However they will not continue to follow for his other mental health issues. He presents here for our help. Taking lyrica and lexapro for the anxiety. Working well and would like to contntinue. Taking concerta for ADD. Works well until 1 or 2 in afternoon, then crashes to some degree. woould like options. Takes toprol xl for heart rate issues. This also works well and he would like to continue. Tobacco Intervention He is not a tobacco user. Depression Screen Positive: PHQ-2 score >= 3 or PHQ-9 score >= 9 PHQ-2 Total: 4 (02/26/2020 3:00 PM) PHQ-9 Total: 15 (02/26/2020 3:00 PM) DEPRESSION PLAN OF CARE He was given a prescription for an antidepressant, His antidepressant medication was reviewed and He was scheduled for a future appointment to do an additional evaluation Blood Pressure BP Readings from Last 3 Encounters: 07/28/20 136/80 02/26/20 130/84 Normal BMI Range: 18 & older: > or = 18.5 and < 25 Body mass index is 28.62 kg/m??. Ok for patient This medical record reflects the history of present illness as obtained by myself in discussion with the patient. ROS Review of Systems - History obtained from chart review and the patient General ROS: negative for weight changes, fever Psychological ROS: positive for - anxiety, change in sleep, compulsions, concentration difficulties, difficulty concentrating, feeling anxious and risky behavior Respiratory ROS: negative for cough, shortness of breath, or wheezing Cardiovascular ROS: negative for chest pain or dyspnea on exertion Gastrointestinal ROS: negative for reflux, abdominal pain, change in bowel habits, or black or bloody stools Objective PHYSICAL EXAM Physical Examination: General appearance - alert, well appearing, and in no distress and oriented to person, place, and time Mental status - alert, oriented to person, place, and time, normal mood, behavior, speech, dress, motor activity, and thought processes Well over 30 minutes in discussion. Multiple mental health diagnosis: ADD: after discussion. I will not raise concerta to higher dose. Will add 10 mg adderall for afternoon to be taken no later than 1 pm. Anxiety - continue lyrica and lexapro at current doses. May need to adjust depending on efficacy. Assessment ASSESSMENT AND PLAN ICD-10-CM ICD-9-CM 1. Anxiety state F41.1 300.00 pregabalin (LYRICA) 150 mg Capsule 2. Attention deficit disorder (ADD) in adult F98.8 314.00 methylphenidate HCl (CONCERTA) 54 mg Extended Release tablet dextroamphetamine-amphetamine (ADDERALL) 10 mg tablet 3. Heart palpitations R00.2 785.1 metoprolol succinate (TOPROL XL) 25 mg Extended Release 24 hour tablet Will see back in two weeks. Will need to contniue alcohol treatment with the center. Given the amout of mental health issues, he really should have psychaitrisit on board as I am not atrained mental health expert or psychaitrist. documented in this encounter Plan of Treatment Upcoming Encounters Date Type Department Care Team (Late st Contact Info) Description 03/27/2024 2:45 PM TITLE ONE KINDERGARTEN TEACHER Office Visit [facility] Oncology and Hematology - Neri [address] [facility] [address] [place] [address] True Wilson MD [address] [facility] [address] [place] [address] documented as of this encounter Visit Diagnoses Diagnosis Anxiety state- Primary Anxiety state, unspecified Attention deficit disorder (ADD) in adult Heart palpitations Palpitations documented in this encounter Additional Health Concerns Assessment Noted Time PHQ-9 Depression Total Score: 4 02/25/19 21 3:00 PM TITLE ONE KINDERGARTEN TEACHER documented as of this encounter
--- OUTSIDE RECORDS SUMMARY | 2024-02-28 22:28 | XMS_ITS | Encounter Summary ---
Author Organization [facility] Address [address] [place] [address] Care Team Providers Care Filter Tank Tender Helper Name Role Phone Unavailable Primary Care Provider Unavailabl e Reason for Visit * Reason Onset Date Comments Medication Refill 03/11/2020 Encounter Details Date Type Department Care Team (Late st Contact Info) Description 03/11/2020 Refill [facility] [place] [address] [place] [address] Sim Velásquez MD NO ADDRESS ON FILE Anxiety state Social History Tobacco Use Types Packs/Day Years [...] COVID-19? No / Unsure 02/26/2020 2:10 PM HOUSEHOLD PERSONAL ASSISTANT documented as of this encounter Miscellaneous Notes * Telephone Encounter - Lilibeth Ayon - 03/11/2020 11:04 AM CST ARTURO 02/26/2020 Last refill 02/26/2020 EHOLD PERSONAL ASSISTANT documented in this encounter Plan of Treatment Upcoming Encounters Date Type Department Care Team (Late Contact Info) Description 03/27/2024 2:45 PM HOUSEHOLD PERSONAL ASSISTANT Office Visit [facility] Oncology and Hematology - Neri [address] [place], [place] [address]oliver Thurman [address] [address] True Wilson MD [address] [facility] [address] [place] [address] documented as of this encounter Visit Diagnoses Diagnosis Anxiety state Anxiety state, unspecified documented in this encounter Additional Health Concerns Assessment Noted Time PHQ-9 Depression Total Score: 4 02/25/19 21 3:00 PM HOUSEHOLD PERSONAL ASSISTANT documented as of this encounter
--- OUTSIDE RECORDS SUMMARY | 2024-02-28 22:28 | XMS_ITS | Encounter Summary ---
Author Organization [facility] Address [address] [place] [address] Care Team Providers Care Latin American Studies Professor Name Role Phone Unavailable Primary Care Provider Unavailabl e Encounter Details Date Type Department Care Team (Late Contact Info) Description 11/09/2023 Orders Only [facility] Oncology and Hematology Neri Vahid [address] [place] [address] True Wilson MD [address] [place] [address] [address] Social History Tobacco Use Types Packs/Day [...] (Late Contact Info) Description 03/27/2024 2:45 PM PROJECT ASST Office Visit [facility] Oncology and Hematology - Neri Wilmer [address] [place] [address] True Wilson MD [address] [place] [address] [address] [address] documented as of this encounter Procedures Procedure Name Priority Date/Time Associated Diagnosis Comments COMPREHENSIVE METABOLIC PANEL Routine 11/07/2023 11:08 AM CDT CBC WITH DIFFERENTIAL Routine 11/07/2023 10:34 AM CDT documented in this encounter Results * COMPREHENSIVE METABOLIC PANEL (11/07/2023 11:08 AM CDT) Blood True Wilson MD CHEMISTRY ORDERABLES * CBC WITH DIFFERENTIAL (11/07/2023 10:34 AM CDT) Blood True Wilson MD HEMATOLOGY ORDERABLE S documented in this encounter Visit Diagnoses Not on filedocumented in this encounter Additional Health Concerns Assessment Noted Time PHQ-9 Depression Total Score: 2 09/28/19 24 3:00 PM CDT documented as of this encounter
--- OUTSIDE RECORDS SUMMARY | 2024-02-28 22:28 | XMS_ITS | Encounter Summary ---
Author Organization [facility] Address [address] [facility] Attn: Epic Prelude ADT ARIK QUINTERO [address] Care Team Providers Care Maintenance Supervisor Mechanical Name Role Phone Unavailable Primary Care Provider Unavailabl e Encounter Details Date Type Department Care Team (Latest Contact Info) Description 01/13/2021 Travel Social History Tobacco Use Types Packs/Day [...] COVID-19? 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 ADVERTISING CLERK documented as of this encounter Plan of Treatment Upcoming Encounters Date Type Department Care Team (Late st Contact Info) Description 03/27/2024 2:45 PM ADVERTISING CLERK Office Visit [facility] Oncology and Hematology - Neri [address] [facility] [address] [place] [address] True Wilson MD [address] [facility] [address] [place] [address] documented as of this encounter Visit Diagnoses Not on filedocumented in this encounter Additional Health Concerns Assessment Noted Time PHQ-9 Depression Total Score: 4 02/25/19 21 3:00 PM ADVERTISING CLERK documented as of this encounter
--- OUTSIDE RECORDS SUMMARY | 2024-02-28 22:28 | XMS_ITS | Encounter Summary ---
Author Organization [facility] Address [address] [place] [address] Care Team Providers Care Radioactive Waste Disposal Dispatcher Name Role Phone Unavailable Primary Care Provider Unavailabl e Encounter Details Date Type Department Care Team (Latest Contact Info) Description 03/27/2020 7:30 AM CANDLE WICKER Telephone Check Up [facility] at Work [employer] [place] [address] [place] [address] Tatianna Elizondo, JEYS[place] [address] [facility] [address] [place] [address] Non-recurrent acute suppurative otitis media without spontaneous rupture of tympanic membrane, unspecified laterality; Acute nasopharyngitis (common cold); Anxiety state Social History Tobacco Use Types [...] COVID-19? No / Unsure 02/26/2020 2:10 PM CANDLE WICKER documented as of this encounter Progress Notes * Tatianna Elizondo NP - 03/26/2020 3:58 PM CST This encounter was completed via audio-only two way synchronous communication. Patient's identity confirmed yes Patient gave verbal consent to have these services billed to their insurance and expressed understanding that co-insurance and deductible may apply: yes Time spent by the provider delivering the care documented in this encounter 20 minutes. Switched totelephone visit due to viral symptoms. HISTORY OF PRESENT ILLNESS Brian Akhtar is a 34 y.o. male who presents for No chief complaint on file. Seen 02/25/19 for anxiety with chest pain. Ordered echo/stress echo. Has not scheduled-given phone number to call to schedule. Started on Lexapro and Klonopin 0.5 mg short term TID prn. Has been taking the Klonopin TID with partial relief. Increased stress due to schedule change at work recently. For 1 week has had sharp pains to his left ear, sore throat, body aches, no fevers. Starting to cough. Tested 1 week ago and it was negative for Covid 19. Is not an employee of [employer]. States has to work, cannot miss. COVID-19 TRIAGE Are you having any of these symptoms (new or worsening): (check the box for any yes ) [] Fever of 100.4 or greater [x] Cough [] Shortness of breath or difficulty breathing [] Chills [x] Muscle pain [] Loss of smell or taste [] Vomiting [] Diarrhea [x] Fatigue [x] Runny nose [x] Sore throat If any checked, date of onset of first symptom(s)? Have you been in contact with a suspected or lab-confirmed coronavirus patient within the last two weeks? [] Yes [x] No Have you had a COVID-19 viral test in the last 14 days? [x] Yes [] No If yes: [] Positive [x] Negative [] Pending If yes, date of test: Past Medical History: Diagnosis Date ??? Anxiety Current Outpatient Medications Medication Sig Dispense Refill ??? escitalopram oxalate (LEXAPRO) 20 mg tablet Take 1 Tablet (20 mg) by mouth daily. 90 Tablet 1 ??? amoxicillin (AMOXIL) 875 mg tablet Take 1 Tablet (875 mg) by mouth every 12 hours. 20 Tablet 0 ??? clonazePAM (KlonoPIN) 0.5 mg Tablet Take 1 Tablet (0.5 mg) by mouth 3 times daily as needed forAnxiety. 45 Tablet 0 ??? [DISCONTINUED] escitalopram oxalate (LEXAPRO) 10 mg tablet Take 1 Tablet (10 mg) by mouth daily. 30 Tablet 0 No current facility-administered medications for this visit. Allergies Allergen Reactions ??? Ivp Dye [Iodinated Contrast Media] Anaphylaxis There were no vitals taken for this visit. MEDICAL RECORD UPDATE Past Medical History: Diagnosis [...] reviewed and updated in computerized patient record. [id number] - [place], [place] - [address] [place] [address] AT [facility] Care Providers: No care steam presser to display No Patient Care Coordination Note on file. REVIEW OF SYSTEMS Review of Systems Constitutional: Negative for chills, fever and malaise/fatigue. HENT: Positive for congestion, ear pain and sore throat. Respiratory: Negative for shortness of breath and wheezing. Cardiovascular: Negative for chest pain and palpitations. Gastrointestinal: Negative for nausea and vomiting. Musculoskeletal: Positive for myalgias. Neurological: Negative for dizziness and headaches. Psychiatric/Behavioral: The patient is nervous/anxious. No results found for any visits on 03/27/20 (from the past 24 hour(s)). ASSESSMENT and PLAN: Diagnoses and all orders for this visit: Non-recurrent acute suppurative otitis media without spontaneous rupture of tympanic membrane, unspecified laterality Acute nasopharyngitis (common cold) Anxiety state Other orders - escitalopram oxalate (LEXAPRO) 20 mg tablet; Take 1 Tablet (20 mg) by mouth daily. - amoxicillin (AMOXIL) 875 mg tablet; Take 1 Tablet (875 mg) by mouth every 12 hours. Anxiety-increase Lexapro to 20 mg daily, refilled. Symptoms consistent with viral illness-and OM. Covid neg. Discussed OTC treatment, rest, increase oral fluids. OM-Amoxil. Follow up in 1 month for anxiety, call sooner if concerns, continue ear pain. LE WICKER documented in this encounter Plan of Treatment Upcoming Encounters Date Type Department Care Team (Late st Contact Info) Description 03/27/2024 2:45 PM CANDLE WICKER Office Visit [facility] Oncology and Hematology - Neri [address] [facility] 200 [place] [address] True Wilson MD 2[address] [facility] [address] [place] [address] documented as of this encounter Visit Diagnoses Diagnosis Non-recurrent acute suppurative otitis media without spontaneous rupture of tympanic membrane, unspecified laterality Acute nasopharyngitis (common cold) Anxiety state Anxiety state, unspecified documented in this encounter Additional Health Concerns Assessment Noted Time PHQ-9 Depression Total Score: 4 02/25/19 21 3:00 PM CANDLE WICKER documented as of this encounter
--- OUTSIDE RECORDS SUMMARY | 2024-02-28 22:28 | XMS_ITS | Continuity of Care Document ---
Author Organization [facility] Address [address] [place] [address] [place] [address] Phone Care Team Providers Care Appetizer Packer Name Role Phone Cristobal Espinal MD Unavailable [...] - Active Procedures Procedure Date OFFICE/OUTPATIENT VISIT, NEW Advance Directives Directive Yes / No Effective Date File Name No Information Encounters Encounter Description Practice Location Reason(s) For Visit Diagnoses Date Provider Providers Copied on Encounter OFFICE/OUTPA TIENT VISIT, [facility], [address] [place], [address], tel:[phone] [facility] back pain (chief complaint) anxiety (chief complaint) Dietary surveillance and counselingLumbagoGe neralized anxiety disorder [address] [place], [address]. tel:[phone] Family History Family Member Type Diagnosis Age At Onset No Information Payers Payer name Insurance type Covered alliance party ID Authoriza tion(s) No Information Social [...] Mental Status Date Cognitive Assessment Orientation - [place] ed to time, place, person, situation.
--- OUTSIDE RECORDS SUMMARY | 2024-02-28 22:28 | XMS_ITS | Encounter Summary ---
Author Organization [facility] Address [address] [place] [address] Care Team Providers Care Real Estate Appraiser Supervisor Name Role Phone Unavailable Primary Care Provider Unavailabl e Encounter Details Date Type Department Care Team (Late st Contact Info) Description 08/23/2023 External Device Data STL ABSTRACTION Provider, Abstract [...] st Contact Info) Description 03/27/2024 2:45 PM SPECIAL EDUCATION CURRICULUM SPECIALIST Office Visit [facility] Oncology and Hematology - [place]eri [address] [place] [address] [facility] [address] [place] [address] True Wilson MD [address] [facility] [address] [place] [address] documented as of this encounter Visit Diagnoses Not on filedocumented in this encounter Additional Health Concerns Assessment Noted Time PHQ-9 Depression Total Score: 4 02/25/19 21 3:00 PM SPECIAL EDUCATION CURRICULUM SPECIALIST documented as of this encounter
--- OUTSIDE RECORDS SUMMARY | 2024-02-28 22:28 | XMS_ITS | Encounter Summary ---
Author Organization [facility] Address [address] [place] [address] Care Team Providers Care Assembly Repairer Name Role Phone Unavailable Primary Care Provider Unavailabl e Reason for Visit * Reason Onset Date Comments Medication Refill 01/20/2021 Encounter Details Date Type Department Care Team (Late st Contact Info) Description 01/20/2021 Refill [facility] at [facility] [place] [address] [place] [address] Sim Velásquez MD NO ADDRESS [...] COVID-19? 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 SCOOTER MECHANIC documented as of this encounter Miscellaneous Notes * Telephone Encounter - Sim Velásquez MD - 01/20/2021 7:23 AM CST Thank you for making the change TER MECHANIC * Telephone Encounter - Lilibeth Ayon RN - 01/20/2021 7:03 AM CST We received notice from [employer] in [place] on [facility] [address] that they are currently out of stock of concerta 54mg and pt would like it sent to [facility] in [place] on [address]. They are not able to transfer the medication since it is a controlled substance. TER MECHANIC documented in this encounter Plan of Treatment Upcoming Encounters Date Type Department Care Team (Late st Contact Info) Description 03/27/2024 2:45 PM SCOOTER MECHANIC Office Visit [facility] Oncology and Hematology - Neri [address] [facility] [address] [place] [address] True Wilson MD [address] [facility] [address] [place] [address] documented as of this encounter Visit Diagnoses Diagnosis Anxiety state Anxiety state, unspecified Attention deficit disorder (ADD) in adult documented in this encounter Additional Health Concerns Assessment Noted Time PHQ-9 Depression Total Score: 4 02/25/19 21 3:00 PM SCOOTER MECHANIC documented as of this encounter
--- OUTSIDE RECORDS SUMMARY | 2024-02-28 22:28 | XMS_ITS | Encounter Summary ---
Author Organization [facility] Address [address] [place] [address] Care Team Providers Care Emergency Department Name Role Phone Unavailable Primary Care Provider Unavailabl e Reason for Visit * Reason Onset Date Comments Medication Refill 09/22/2020 Encounter Details Date Type Department Care Team (Late st Contact Info) Description 09/22/2020 Refill [facility] at Work [employer] [place] [address] [place] [address] Sim Velásquez MD NO ADDRESS [...] st Contact Info) Description 03/27/2024 2:45 PM STOCK CONTROL SUPERVISOR Office Visit [facility] Oncology and Hematology - Neri [address] [facility] [address] [place] [address] True Wilson MD [address] [facility] [address] [place] [address] documented as of this encounter Visit Diagnoses Diagnosis Anxiety state Anxiety state, unspecified Attention deficit disorder (ADD) in adult documented in this encounter Additional Health Concerns Assessment Noted Time PHQ-9 Depression Total Score: 4 02/25/19 21 3:00 PM STOCK CONTROL SUPERVISOR documented as of this encounter
--- OUTSIDE RECORDS SUMMARY | 2024-02-28 22:28 | XMS_ITS | Encounter Summary ---
Author Organization [facility] Address [address] [place] [address] Care Team Providers Care Header Dock Name Role Phone Unavailable Primary Care Provider Unavailabl e Reason for Visit * Reason Onset Date Comments Medication Refill 08/14/2020 Encounter Details Date Type Department Care Team (Late st Contact Info) Description 08/14/2020 Nurse Triage [facility] Nurse consulting practice director [address] [place] [address] Lance Dawson RN Social History Tobacco Use Types Packs/Day [...] encounter Miscellaneous Notes * Telephone Encounter - Lance Dwason RN - 08/14/2020 5:33 PM CDT Reason for Disposition ??? [1] Prescription not at pharmacy AND [2] was prescribed by PCP recently lisdexamfetamine Vyvanse Rx was sent to different [facility] pharmacy than caller was aware of. Protocols used: MEDICATION QUESTION CALL-A- Spoke with Marilyn at [facility]. Brian know where this pharmacy is and will be going to pick it up as soon as possible. documented in this encounter Plan of Treatment Upcoming Encounters Date Type Department Care Team (Late st Contact Info) Description 03/27/2024 2:45 PM PASTE MAKER Office Visit [facility] Oncology and Hematology - N[place] [address] [facility] [address] [place] [address] True Wilson MD [address] [facility] [address] [place] [address] documented as of this encounter Visit Diagnoses Not on filedocumented in this encounter Additional Health Concerns Assessment Noted Time PHQ-9 Depression Total Score: 4 02/25/19 21 3:00 PM PASTE MAKER documented as of this encounter
--- OUTSIDE RECORDS SUMMARY | 2024-02-28 22:28 | XMS_ITS | Encounter Summary ---
Author Organization [facility] Address [address] [place] [address] Care Team Providers Care Estimating Manager Name Role Phone Unavailable Primary Care Provider Unavailabl e Encounter Details Date Type Department Care Team (Late st Contact Info) Description 03/20/2023 External Device Data ST[facility] ABSTRACTION Provider, Abstract [...] st Contact Info) Description 03/27/2024 2:45 PM PAINT CREW SUPERVISOR Office Visit [facility] Oncology and Hematology - [place] [address] [place] [address] [facility] [address] [place] [address] True Wilson MD [address] [facility] [address] [place] [address] documented as of this encounter Visit Diagnoses Not on filedocumented in this encounter Additional Health Concerns Assessment Noted Time PHQ-9 Depression Total Score: 4 02/25/19 21 3:00 PM PAINT CREW SUPERVISOR documented as of this encounter
--- OUTSIDE RECORDS SUMMARY | 2024-02-28 22:28 | XMS_ITS | Encounter Summary ---
Author Organization [facility] Healthcare Address [address] [place] [address] Care Team Providers Care Director Semiconductor Name Role Phone Unknown, Notinfile Primary Care Provider Unavail able Reason for Visit * Reason Comments Rash Encounter Details Date Type Department Care Team (Late st Contact Info) Description 08/08/2022 2:15 PM CDT - 08/08/2022 4:55 PM CDT Emergency [facility] Emergency Department [address] [place] [address] Cellulitis, unspecified cellulitis site (Primary Dx); Scab Discharge Disposition: Discharge to home or self care Social History Tobacco Use Types Packs/Day Years Used Date Smoking Tobacco: Never Assessed Personal Safety Answer Date Recorded Have you ever been in or are you currently in a harmful physical or emotional relationship or is someone making you feel afraid or unsafe? Denies 08/08/2022 Sex and Gender Information Value Date Recorded Sex Assigned at Not on file Legal Sex Male 4:57 AM [employer]ING[employer] Gender Identity Not on file Sexual Orientation Not on file documented as of this encounter Last Filed Vital Signs Vital Sign Reading Time Taken Comments Blood Pressure 126/78 08/08/2022 1:09 PM CDT Pulse 84 08/08/2022 1:09 PM CDT Temperature 36.6 ??C (97.9 ??F) 08/08/2022 1:09 PM CD T Respiratory Rate 16 08/08/2022 1:09 PM CDT Oxygen Saturation 99% 08/08/2022 1:09 PM CDT Inhaled Oxygen Concentration - - Weight 122.5 kg (270 lb) 08/08/2022 1:09 PM CDT Height 182.9 cm (6') 08/08/2022 1:09 PM CDT Body Mass Index 36.62 08/08/2022 1:09 PM CDT documented in this encounter Discharge Instructions * Discharge Instructions* Kellie Blount NP - 08/08/2022 4:44 PM CDT I am diagnosing you with cellulitis. This is an infection of your skin. I am prescribing you an antibiotic called Bactrim. Please take this exactly as it is prescribed. Please take the entire course of the antibiotic, even if your symptoms improve. I am also prescribing you bacitracin. Please placethis on your wounds, 2 times a day, for the next week. You may wash the wounds with mild soap and water 2 times a day. Avoid picking your skin. Please also avoid drug use. Please follow up with a primary care doctor or clinic in 1 week for re- evaluation of your symptoms. Please return to the ER you develop worsening drainage after being on the antibiotic for 48 hours, severe swelling, difficulty swallowing, shortness of breath, chest pain, fevers, vomiting. Kristal Mullins [facility] (3) [facility]- [address] [phone] (M, , , F 8-5; W 8-8) [facility]- [address] [facility] [phone] (M-W, F 8-5; Th 8-8) [facility]- [address] [facility] [facility] [phone] (, , F 8-5; W 8-8) Min $20/visit w/o insurance [employer] [place]. (4) Main Number [phone] [facility]- [address] [facility]- [address] [facility]- [address] [facility]- [address] [facility] (M, , Th, F 830-530; W 830-7) (Sa 9-1 @ [facility]) Min $20/visit w/o insurance Gynecologic/Reproductive Health (4) [facility] [address] [phone] (M-Sa) [facility]- [address] [facility] [phone] (M-Sa) [facility]- [address] [phone] (M 9-2; 10-6; W 9-3; 10-4; Sa 8-12) [facility]- [address]; *Ages 13-24* [phone] (M-F 1p-5p) [facility] [place] [facility] [place] (Amharic-speaking) [address] (M-F 9-5, Sa 9-2, [place] 1p-5p) $25/visit w/o insurance [facility] (3) [facility]- [address] [phone] (M, W-F 8-530; 8-830) [facility]- [address] [phone] (M, , , 8-530; 8830) [facility]- [address] [phone] (M-W, F 8-530; 11-8) Min $25/visit w/o insurance [facility] (2) [place]- [address] [phone] (M, W, F 8-5; , 8-8; 8-1) [facility]- [address] [phone] (M, W-F 830-5; 830-7; Sa 9-1) Min $20/visit w/o insurance [facility] (3) [facility]- [address] [phone] (M-W, F 8-5; 8-6) [facility]- [address] [phone] (M, , , F 8-5; W 8-6) [facility]- [address] [phone] (M, W-F 8-5; 8-6) [facility] ([email or web address]) (~40 centers) [address] [place] [address] [address] [place], [place] [phone] (-F830-5; Quick Care M-F 5p-230p, Sa [phone]) [facility]- [address] [phone] (M-F 830-5;Late Hours M,W,F 6p-10p) [facility]- [address] [place] [address] (M-F 830-5) * Attachments The following attachments cannot be sent through Care Everywhere. * Cellulitis (Discharge Care) (French) documented in this encounter Medications at Time of Discharge dextroamphetamin e-amphetamine (ADDERALL) 20 mg tablet 1 tablet (20 mg total) 02/05/2021 FLUoxetine (PROzac) 40 mg capsule Take 1 capsule (40 mg total) by mouth daily 10/25/2014 bacitracin 500 unit/gram ointment Apply topically 2 (two) times a day for 7 days 120 g 08/08/2022 3 sulfamethoxazole -trimethoprim (BACTRIM DS) 800-160 mg per tablet Take 1 tablet (160 mg of trimethoprim total) by mouth 2 (two) times a day for 7 days smx-tmp DS (BACTRIM) 800-160 mg tabs 14 tablet 08/08/2022 3 documented as of this encounter Ordered Prescriptions Prescription Sig Dispense Quantity Refills Last Filled Start Date End Date bacitracin 500 unit/gram ointment Apply topically 2 (two) times a day for 7 days 120 g 08/08/2022 3 sulfamethoxazole- trimethoprim (BACTRIM DS) 800-160 mg per tablet Take 1 tablet (160 mg of trimethoprim total) by mouth 2 (two) times a day for 7 days smx-tmp DS (BACTRIM) 800-160 mg tabs 14 tablet 08/08/2022 3 documented in this encounter Discharge Disposition Disposition Code Departure Means Destination Comment s Discharge to home or self care documented in this encounter ED Notes * Kellie Blount, JEYSON - 08/08/2022 3:07 PM CDT HPI Chief Complaint Patient presents with Rash HPI 36-year-old male with a past medical history of hepatitis-C, substance use disorder, reports to [facility] for wounds. Patient reports approximally 3-4 days ago he noticed a red bump to the posterior andlateral right side of his neck. Patient does endorse picking this bump, because he thought it was apimple. Patient reports then developing a wound to these locations. Patient also reports developingpurulent drainage to from these wounds. Patient does endorse chills. Denies checking if he had a temperature. Patient denies having any neck pain or stiffness, chest pain, palpitations, shortness of breath, nausea/vomiting, abdominal pain, urinary symptoms. Of note, patient reports he was sober from drugs and alcohol for the past 2 years, and recently relapsed earlier this week. Patient does admit to IV drug use. Patient last use fentanyl approximally 2 days ago. Patient reports he does not inject into his neck, only to his hands. Encounter review, patient was admitted to [facility] on 06/03/2020 for COVID. During this visitthe patient was diagnosed with hepatitis-C. Patient History: There are no problems to display for this patient. History reviewed. No pertinent past medical history. History reviewed. No pertinent surgical history. History reviewed. No pertinent family history. Social History Tobacco Use Smoking status: None Smokeless tobacco: None Substance and Sexual Activity Alcohol use: None Drug use: None Sexual activity: None Social History Social History Narrative Not on file Review of Systems Review of Systems Constitutional: Negative for chills and fever. HENT: Negative for ear pain and sore throat. Eyes: Negative for pain and visual disturbance. Respiratory: Negative for cough and shortness of breath. Cardiovascular: Negative for chest pain and palpitations. Gastrointestinal: Negative for abdominal pain, diarrhea, nausea and vomiting. Genitourinary: Negative for dysuria and hematuria. Musculoskeletal: Negative for arthralgias, back pain, myalgias, neck pain and neck stiffness. Skin: Positive for wound. Negative for color change and rash. Neurological: Negative for dizziness, seizures, syncope, weakness, light- headedness and headaches. All other systems reviewed and are negative. Physical Exam ED Triage Vitals [08/08/22 1309] Temp Pulse Resp BP SpO2 36.6 ??C (97.9 ??F) 84 16 126/78 99 % Temp src Heart Rate Source Patient Position BP Location FiO2 (%) Temporal -- -- -- -- Height Height Method Weight Weight Method 1.829 m (6') Stated 122.5 kg (270 lb) -- Physical Exam Vitals and nursing note reviewed. General: Well-appearing, well-nourished, in no acute distress Skin: Warm, dry, wound of varius stages with scabs and warmth to the base of the neck, erythremia and warmth to the dorsal L hand. HENT: normocephalic, mucosa pink and moist, trachea midline, neck supple, no adenopathy Eyes: sclera white, conjunctiva pink, eyelids symmetrical, PERRLA Pulmonary: thoracic symmetric, respirations unlabored, lungs clear bibasilar CV: Audible S1 S2 heart sounds, no murmurs, gallops, or rubs, extremities warm, no edema present, 2+ radial and DP pulses present GI: Abd is not distended, bowel sounds present in all 4 quadrants, soft, non- tender, no palpable masses or hernias, no tenderness with palpation, there is no rebound tenderness or guarding present MSK: Steady gait, full ROM and 5/5 strength in all extremities, No swelling or deformity, nails without clubbing or cyanosis Neuro: A&O to time, person, and place, CN III-VIII intact, Intact sensation to touch in all extremities Psych: Good insight and judgment, appropriate mood and affect. MDM Medical Decision Making HPI and comorbidities: 36-year-old male with a past medical history of hepatitis-C, substance use disorder, reports to the ER for wounds. Patient reports approximally 3-4 days ago he noticed a red bump to the posterior and lateral right side of his neck. Patient does endorse picking this bump, because he thought it was a pimple. Patient reports then developing a wound to these locations. Patient also reports developing purulent drainage to from these wounds. Patient does endorse chills. Denies checking if he had a temperature. Patient denies having any neck pain or stiffness, chest pain, palpitations, shortness of breath, nausea/vomiting, abdominal pain, urinary symptoms. Of note, patient reports he was sober from drugs and alcohol for the past 2 years, and recently relapsed earlier this week. Patient does admit to IV drug use. Patient last use fentanyl approximally 2 days ago. Patient reports he does not inject into his neck, only to his hands. Exam findings: On exam, patient is afebrile and not tachycardic. Patient does have superficial wounds, healing at multiple different stages to the base of his neck. There are scabs on some of these wounds. Patient does have mild warmth to the right lateral neck. No induration or fluctuance noted. Patient also has erythema and warmth to the dorsal left hand. No induration or fluctuance noted. Patient does endorse injecting IV drugs at this location. No spine tenderness, crepitus of the spine. Normal ROM to the neck. No joint swelling noted. Differential Dx and plan: High probability for cellulitis, soft tissue injury, scab. Lower concern for bacteremia, sirs. No evidence of an abscess, osteomyelitis, or septic arthritis at this time. Given his hx of IVDU and multiple sites c/f cellulitis, I will obtain basic labs including CBC, BMP, POC lactate. Offered the pt SW assistance and [facility]. Pt declined. Reports he still has rehab contact information. Problems Addressed: Cellulitis, unspecified cellulitis site: undiagnosed new problem with uncertain prognosis Scab: complicated acute illness or injury Amount and/or Complexity of Data Reviewed Labs: ordered. Decision-making details documented in ED Course. Risk Prescription drug management. ED Course as of 08/08/22 1650 Time: 08/08 1638 Value: Lactate POC GEM 3000: 1.2 Comment: (Reviewed) By: Kellie Blount NP Time: 08/08 1637 Value: WBC: 7.7 Comment: (Reviewed) By: Kellie Blount NP Time: 08/08 1637 Comment: No evidence of sepsis or bacteremia. Patient likely has cellulitis. Will discharge him with a prescription for Bactrim to provide MRSA coverage. I will also prescribe gripe him bacitracin. Iwill advise that he keep his wounds clean and dry. I will advise that he place bacitracin on his wounds 2 times a day. I will also recommend that he follow up with the PCP or Medicine Clinic in 1-2 weeks for re-evaluation of his symptoms. I will give strict return precautions. By: Kellie Blount NP Time: 08/09 1647 Comment: Pt updated on results and plan of care. By: Kellie Blount NP Final diagnoses: Cellulitis, unspecified cellulitis site Scab Kellie Blount NP 08/08/221649 * Zaida Galindo RN - 08/08/2022 2:15 PM CDT [facility] Expected date: Expected time: Means of arrival: Car Comments: Zaida Galindo RN 08/08/22 1265 * Carolee Fay RN - 08/08/2022 1:12 PM CDT Symptoms: Patient here with sores on right neck and both legs that started 3-4 days ago. Denies trauma. Denies new detergents/soaps/lotions/hygiene supplies. Patient states he relapsed 3-4 days ago (IVDU). Patient states he does not inject into his neck; he injects into his hands (fentanyl). Denies substance use/ETOH today. PmHx: Arrhythmia (takes metoprolol daily), IVDU *On arrival patient is A&Ox4; denies CP/SOB/N/V/D/F/C documented in this encounter Plan of Treatment Not on file documented as of this encounter Procedures Procedure Name Priority Date/Time Associated Diagnosis Comments POCT LACTATE - DEVICE Routine 08/08/2022 3:53 PM CDT EGFR STAT 08/08/2022 3:38 PM CDT DIFFERENTIAL AUTO STAT 08/08/2022 3:3 8 PM CDT CBC WITH AUTO DIFFERENTIAL STAT 08/08/2022 3:38 PM CDT BASIC METABOLIC PANEL STAT 08/08/2022 3:38 PM CDT documented in this encounter Results * POCT lactate (08/08/2022 3:53 PM CDT) Lactate POC i-STAT 1.2 0.7 - 2.2 mmol/L [facility] Blood 08/08/2022 3:53 PM CDT 08/08/2022 3:53 PM CDT us Notinfile Unknown LAB POCT ORDERABLES - DEVICE F inal Result [facility] Department [place] [address] * eGFR (08/08/2022 3:38 PM CDT) [facility] eGFR >90 90 - 130 mL/min/1. 73 m2 [facility] Comment: Interpretive Data Reference Interval Normal ?>/= 90 mL/min/1.73m2 Mildly decreased* ? 60 - 89 mL/min/1.73m2 Mildly to moderately decreased ?45 - 59 mL/min/1.73m2 Moderately to severely decreased ??30 - 44 mL/min/1.73m2 Severely decreased ?15 - 29 mL/min/1.73m2 Kidney Failure ?< 15 ??mL/min/1.73m2 *Relative to young adult level Estimated glomerular filtration rate is determined by the 2020 CKD-EPI equation recommended by the National Kidney Foundation (A Unifying Approach to GFR Estimation: Recommendations of the NKF-ASK Task Force on Reassessing the Inclusion of Race in Diagnosing Kidney Disease, JASN 2020). The CKD-EPI equation should not be used for patients with unstable renal function and has not been validated in children and those over 70. Current interpretive data was last reviewed 2020. Blood 08/08/2022 3:38 PM CDT 08/08/2022 3:44 PM CDT Kellie Blount NP LAB BLOOD ORDERABLES Final Result [facility] [place] [address] * Differential, auto (08/08/2022 3:38 PM CDT) [facility] Neutrophil abs 4.6 1.7 - 6.5 K/cumm [facility] Imm gran abs 0.0 0.0 - 0.1 K/cumm [facility] Lymphocyte abs 2.2 0.8 - 3.3 K/cumm [facility] Monocyte abs 0.6 0.2 - 0.8 K/cumm [facility] Eosinophil abs 0.1 0.0 - 0.5 K/cumm [facility] Basophil abs 0.0 0.0 - 0.1 K/cumm [facility] Neutrophil pct 60.5 % [facility] Comment: Interpretive Data Percent cell count reference ranges are not reported, since discordance with absolute values may lead to misinterpretation of CBC data. Current Interpretive Data was last revised on 2017. Imm gran pct 0.4 % [facility] Comment: Interpretive Data Percent cell count reference ranges are not reported, since discordance with absolute values may lead to misinterpretation of CBC data. Current Interpretive Data was last revised on 2017. Lymphocyte pct 28.8 % [facility] Comment: Interpretive Data Percent cell count reference ranges are not reported, since discordance with absolute values may lead to misinterpretation of CBC data. Current Interpretive Data was last revised on 2017. Monocyte pct 8.2 % [facility] Comment: Interpretive Data Percent cell count reference ranges are not reported, since discordance with absolute values may lead to misinterpretation of CBC data. Current Interpretive Data was last revised on 2017. Eosinophil pct 1.8 % [facility] Comment: Interpretive Data Percent cell count reference ranges are not reported, since discordance with absolute values may lead to misinterpretation of CBC data. Current Interpretive Data was last revised on 2017. Basophil pct 0.3 % [facility] Comment: Interpretive Data Percent cell count reference ranges are not reported, since discordance with absolute values may lead to misinterpretation of CBC data. Current Interpretive Data was last revised on 2017. Blood 08/08/2022 3:38 PM CDT 08/08/2022 3:44 PM CDT Kellie Blount NP LAB BLOOD ORDERABLES Final Result CHARIS[facility] Department [place] [address] * (ABNORMAL) Basic metabolic panel (08/08/2022 3:38 PM CDT) Pathologist [facility] Sodium 138 135 - 145 mmol/L [facility] Potassium, pl 3.3 3.3 - 4.9 mmol/L [facility] Chloride 100 97 - 110 mmol/L [facility] CO2 29 22 - 32 mmol/L [facility] Anion gap 9 2 - 15 mmol/L [facility] BUN 5(L) 8 - 25 mg/dL [facility] Creatinine 0.77(L) 0.80 - 1.30 mg/dL [facility] Glucose 108 70 - 199 mg/dL [facility] Comment: Interpretive Data Fasting glucose >/= 126 mg/dl is diagnostic for diabetes. ?? Fasting is defined as no caloric intake for at least 8 hours. Fasting glucose between 100 mg/dl to 125 mg/dl is diagnostic of prediabetes. In a patient with classic symptoms of hyperglycemia or hyperglycemic crisis, a random glucose >/= 200 mg/dl is diagnostic for diabetes. In the absence of unequivocal hyperglycemia, results should be confirmed by repeat testing. The classification and Diagnosis of Diabetes Diabetes Care 202; 46: S19-S40. Current interpretive data was last revised 2022. Calcium 8.9 8.5 - 10.3 mg/dL [facility] Blood 08/08/2022 3:38 PM CDT 08/08/2022 3:44 PM CDT us Kellie Blount [employer] LAB BLOOD ORDERABLES Final Result [facility] Department [place] [address] * (ABNORMAL) CBC with auto differential (08/08/2022 3:38 PM CDT) Pathologist [facility] WBC 7.7 3.8 - 9.9 K/cumm [facility] Hgb 12.3(L) 13.0 - 17.5 g/dL [facility] Hct 36.2(L) 38.9 - 50.3 % [facility] Plt 211 150 - 400 K/cumm [facility] MPV 10.6 9.1 - 12.3 fL [facility] RBC 4.33 4.30 - 5.80 M/cumm [facility] MCV 83.6 81.3 - 96.4 fL [facility] MCH 28.4 27.1 - 33.3 pg [facility] MCHC 34.0 32.3 - 35.7 g/dL [facility] RDW CV 13.2 11.1 - 14.9 % [facility] RDW SD 40.3 35.7 - 48.1 fL [facility] NRBC abs 0.00 0.00 - 0.01 K/cumm [facility] Blood 08/08/2022 3:38 PM CDT 08/08/2022 3:44 PM CDT Kellie Blount NP LAB BLOOD ORDERABLES Final Result [facility] [place] [address] documented in this encounter Visit Diagnoses Diagnosis Cellulitis, unspecified cellulitis site- Primary Scab documented in this encounter Administered Medications Inactive Administered Medications - up to 3 most recent administrations Medication Order MAR Action Action Date Dose Rate Site ketorolac (TORADOL) 30 mg/mL (1 mL) injection 30 mg 30 mg, intravenous, Once, On 08/08/22 at 1538, For 1 dose, For Adult IV push, administer over 15 seconds Given 08/08/2022 3:44 PM CDT 30 mg sulfamethoxazole-trimet hoprim (BACTRIM DS) 800-160 mg per tablet 160 mg of trimethoprim 160 mg of trimethoprim, oral, Once, On 08/08/22 at 1642, For 1 dose, Indications: Skin/Soft Tissue InfectionIndications:Sk in/Soft Tissue Infection Given 08/08/2022 4:51 PM CDT 160 mg of trimethoprim documented in this encounter Active and Recently Administered Medications Times are shown in CDT. Scheduled Medication Order 08/06/2022 08/07/2022 08/08/2022 ketorolac (TORADOL) 30 mg/mL (1 mL) injection 30 mg (COMPLETED) 30 mg, intravenous, Once, On 08/08/22 at 1538, For 1 dose, For Adult IV push, administer over 15 seconds 1544 (Given - Provid er: Carmine Galo, GLADIS) sulfamethoxazole-trimethoprim (BACTRIM DS) 800-160 mg per tablet 160 mg of trimethoprim (COMPLETED) 160 mg of trimethoprim, oral, Once, On 08/08/22 at 1642, For 1 dose, Indications: Skin/Soft Tissue Infection 1651 (Given - Provid er: Carmine Galo, GLADIS) documented in this encounter Orders Lab Orders Without Results Count Last Ordered D ate First Ordered Date POCT LACTATE - DEVICE 1 08/08/2022 documented in this encounter Care Teams Director Semiconductor Relationship Specialty Start Date End Date Unknown, Notinfile PCP - General 12/10/17 02/23/24 documented as of this encounter
--- OUTSIDE RECORDS SUMMARY | 2024-02-28 22:28 | XMS_ITS | Encounter Summary ---
Author Organization [facility] Address 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
--- OUTSIDE RECORDS SUMMARY | 2024-02-28 22:28 | XMS_ITS | Encounter Summary ---
Author Organization [facility] Address [address] [place] [address] Care Team Providers Care Business Division Chair Name Role Phone Unavailable Primary Care Provider Unavailabl e Reason for Visit * Reason Onset Date Comments Medication Refill 01/16/2021 Encounter Details Date Type Department Care Team (Late Contact Info) Description 01/16/2021 Refill [facility] at Work [employer] [place] [address] [place] [address] Sim Velásquez MD NO ADDRESS [...] COVID-19? 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 documented as of this encounter Plan of Treatment Upcoming Encounters Date Type Department Care Team (Late Contact Info) Description 03/27/2024 2:45 PM SENIOR RESERVOIR ENGINEER Office Visit [facility] Oncology and Hematology - [place] [address] [facility] [address] [place] [address] True Wilson MD [address] [facility] [address] [place] [address] documented as of this encounter Visit Diagnoses Diagnosis Anxiety state Anxiety state, unspecified Attention deficit disorder (ADD) in adult documented in this encounter Additional Health Concerns Assessment Noted Time PHQ-9 Depression Total Score: 4 02/25/19 21 3:00 PM SENIOR RESERVOIR ENGINEER documented as of this encounter
--- OUTSIDE RECORDS SUMMARY | 2024-02-28 22:28 | XMS_ITS | Encounter Summary ---
Author Organization [facility] Address [address] [place] [address] Care Team Providers Care Awning Erector Name Role Phone Unavailable Primary Care Provider Unavailabl e Encounter Details Date Type Department Care Team (Latest Contact Info) Description 08/13/2020 3:00 PM CDT Telephone Check Up [facility] at Work [employer] [place] [address] [place] [address] Sim Velásquez MD NO ADDRESS ON FILE Attention deficit disorder (ADD) in adult (Primary Dx); Anxiety state Social History Tobacco Use Types [...] Progress Notes * Sim Velásquez MD - 08/13/2020 3:07 PM CDT This encounter was completed via audio-only two way synchronous communication. Patient's identity confirmed yes Patient gave verbal consent to have these services billed to their insurance and expressed understanding that co-insurance and deductible may apply: yes Time spent by the provider delivering the care documented in this encounter 14 minutes. Chart reviewed. adderall really didn't help and may have caused some overall weakness. concerta still running out too soon., Would like to try vyvanse per last visit discussion. Also lyrica is not helping at all. Will chagne to vyvanse. Stop concerta and adderall. Will wean lyrica and continue lexapro for now. Recheck in two weeks to discuss all meds. documented in this encounter Plan of Treatment Upcoming Encounters Date Type Department Care Team (Late st Contact Info) Description 03/27/2024 2:45 PM HUNTING GUIDE Office Visit [facility] Oncology and Hematology - Neri [address] [facility] [address] [place] [address] True Wilson MD [address] [facility] [address] [place] [address] documented as of this encounter Visit Diagnoses Diagnosis Attention deficit disorder (ADD) in adult- Primary Anxiety state Anxiety state, unspecified documented in this encounter Additional Health Concerns Assessment Noted Time PHQ-9 Depression Total Score: 4 02/25/19 21 3:00 PM HUNTING GUIDE documented as of this encounter
--- OUTSIDE RECORDS SUMMARY | 2024-02-28 22:28 | XMS_ITS | Referral Summary ---
Author Organization [facility] Address [address] [place] [address] Care Team Providers Care Rn Flight Name Role Phone Roland Knight NP Primary Care Provider [phone]- [phone] Encounters Date Type Department Care Team Description 02/24/2024 4:15 PM ONION FARMER Office Visit [facility] at [address] [place] [address] Ana Anne NP Lower respiratory infection (Primary Dx); Influenza A from Last 3 Months Allergies Active Allergy Reactions Criticality Noted Date Comments Iodinated Contrast Media Unknown,Anaphylaxis,S hortness of breath High 10/20/2014 Allergy discussed with pt pre-operatively. Pt. clarified that allergy is only to IV contrast dye. He does not have an allergy to topical iodine. He has used topical iodine in the past with no reactions. Medications buprenorphine-na loxone (SUBOXONE) 4-[address] 1 strip under the tongue daily as needed 4 Active citalopram (CeleXA) 40 mg tablet Take 1 tablet (40 mg total) by mouth daily 4 Active dextroamphetamin e-amphetamine (ADDERALL) 20 mg tablet 1 tablet (20 mg total) 1 Active escitalopram (LEXAPRO) 20 mg tablet Take 1 tablet (20 mg total) by mouth daily Active FLUoxetine (PROzac) 40 mg capsule Take 1 capsule (40 mg total) by mouth daily 5 Active hydroCHLOROthiaz raffi 12.5 mg tablet Take 1 tablet (12.5 mg total) by mouth daily 4 Active linaCLOtide (Linzess) 72 mcg capsule Take 1 capsule (72 mcg total) by mouth daily before breakfast 4 Active lumateperone 42 mg capsule Take 1 capsule (42 mg total) by mouth daily Active methylphenidate ER (CONCERTA) 18 mg CR tablet Take 3 tablets (54 mg total) by mouth heel washer stringing machine operator before breakfast Active metoprolol XL (TOPROL-XL) 50 mg extended release tablet Take 1 tablet (50 mg total) by mouth daily 4 Active amoxicillin-clav ulanate (AUGMENTIN) 875-125 mg per tabletIndication s:Lower respiratory infection Take 1 tablet by mouth 2 (two) times a day for 7 days 14 tablet 5 03/02/19 25 Active predniSONE (DELTASONE) 20 mg tabletIndication s:Lower respiratory infection Take 1 tablet (20 mg) by mouth 2 (two) times a day for 5 days 10 tablet 5 02/28/19 25 Active albuterol HFA (PROVENTIL HFA,VENTOLIN HFA,PROAIR HFA) 90 mcg/actuation inhalerIndicatio ns:Lower respiratory infection Inhale 2 puffs every 6 (six) hours as needed for wheezing 3 each 4 5 02/23/19 26 Active inhalational spacing device (Aerochamber MV) spacerIndication s:Lower respiratory infection Use with albuterol inhaler 1 each 5 Active Hospital, Clinic, or Other Facility Administered Medication Ordered Dose Route Frequency Start Date End Date Status albuterol 2.5 mg /3 mL (0.083 %) nebulizer solution 2.5 mgIndications:Lower respiratory infection 2.5 mg nebu Once 02/24/2024 02/24/2024 End ed Active Problems No known active problems Social History Tobacco Use Types Packs/Day Years Used Date Smoking Tobacco: Never Passive Smoke Exposure: Never Smokeless Tobacco: Never Personal Safety Answer Date Recorded Have you ever been in or are you currently in a harmful physical or emotional relationship or is someone making you feel afraid or unsafe? Denies 08/08/2022 Sex and Gender Information Value Date Recorded Sex Assigned at Not on file Legal Sex Male 4:57 AM ONION FARMER Gender Identity Not on file Sexual Orientation Not on file Last Filed Vital Signs Vital Sign Reading Time Taken Comments Blood Pressure 122/80 02/24/2024 4:26 PM ONION FARMER Pulse 85 02/24/2024 4:26 PM ONION FARMER Temperature 36.9 ??C (98.4 ??F) 02/24/2024 4:26 PM CS T Respiratory Rate 20 02/24/2024 5:14 PM ONION FARMER Oxygen Saturation 96% 02/24/2024 5:14 PM ONION FARMER Inhaled Oxygen Concentration - - Weight 122.5 kg (270 lb) 02/24/2024 4:26 PM ONION FARMER Height 182.9 cm (6') 02/24/2024 4:26 PM ONION FARMER Body Mass Index 36.62 02/24/2024 4:26 PM ONION FARMER Plan of Treatment Not on file Procedures Procedure Name Priority Date/Time Associated Diagnosis Comments HEPATITIS C ANTIBODY Routine 09/14/2022 8:25 AM CDT from Last 3 Months or Most Recently Relevant to Health Maintenance Results * (ABNORMAL) Hepatitis C antibody (09/14/2022 8:25 AM CDT) Hep C Ab Reactive( A) Nonreactive CHARISSE Comment: Interpretive Data Nonreactive: Antibodies to HCV not detected. Does NOT exclude the possibility of recent exposure to HCV. Equivocal: Equivocal for HCV antibodies. Supplemental molecular testing will be automatically performed to determine infection status in accordance with current CDC screening recommendations. ?? Reactive: Positive for HCV antibodies. ??This may represent current or past HCV infection. Supplemental molecular testing will be automatically performed to determine ??current infection status in accordance with current CDC screening recommendations. Interpretive data was last revised on 2019. Blood 09/14/2022 8:25 AM CDT 09/14/2022 12:19 PM CDT us Lupe Soler MD LAB MICROBIOLOGY - GENERAL ORDER THOMAS Final Result CHARISSE [address] [facility] [place] [address] from Last 3 Months or Most Recently Relevant to Health Maintenance Insurance [employer] Care Teams Rn Flight Relationship Specialty Start Date End Date Roland Knight NP [address] [place] [address] PCP - General Pain Management 02/24/24
--- OUTSIDE RECORDS SUMMARY | 2024-02-28 22:28 | XMS_ITS | Encounter Summary ---
Author Organization [facility] Address [address] [place] [address] Care Team Providers Care Flooring Machine Feeder Name Role Phone Unavailable Primary Care Provider Unavailabl e Encounter Details Date Type Department Care Team (Late Contact Info) Description 11/09/2023 Abstract [facility] Oncology and Hematology - Neri [address] [place] [address] True Wilson MD [address] [place] [address] [employer] [address] [address] Social History Tobacco Use Types [...] (Late Contact Info) Description 03/27/2024 2:45 PM BUNK ASSEMBLER Office Visit [facility] Oncology and Hematology - Neri [address] [place] [address] True Wilson MD [address] [place] [address] [employer] [address] [place] [address] documented as of this encounter Visit Diagnoses Not on filedocumented in this encounter Additional Health Concerns Assessment Noted Time PHQ-9 Depression Total Score: 2 09/28/19 24 3:00 PM CDT documented as of this encounter
--- OUTSIDE RECORDS SUMMARY | 2024-02-28 22:28 | XMS_ITS | Clinical Summary ---
Author Organization [facility] Address [address] [place] [address] Care Team Providers Care Bow Maker Gift Wrapping Name Role Phone Roland Knight NP Primary Care Provider +1- [phone] Allergies Active Allergy Reactions Criticality Noted Date [...] 3 tablets (54 mg total) by mouth fire investigation lieutenant before breakfast Active metoprolol XL (TOPROL-XL) 50 [...] ed Active Problems No known active problems Encounters Date Type Department Care Team Description 02/24/2024 4:15 PM GUEST SERVICES AMBASSADOR Office Visit [facility] Con[facility]ient Care at [address] [address] Ana Anne NP Lower respiratory infection (Primary Dx); Influenza A from Last 3 Months Social History Tobacco Use Types Packs/Day Years [...] on file Legal Sex Male 4:57 AM GUEST SERVICES AMBASSADOR Gender Identity Not on file Sexual Orientation Not on file Obstetrics History Last Filed Vital Signs Vital Sign Reading Time Taken Comments Blood Pressure 122/80 02/24/2024 4:26 PM GUEST SERVICES AMBASSADOR Pulse 85 02/24/2024 4:26 PM GUEST SERVICES AMBASSADOR Temperature 36.9 ??C (98.4 ??F) 02/24/2024 4:26 PM CS T Respiratory Rate 20 02/24/2024 5:14 PM GUEST SERVICES AMBASSADOR Oxygen Saturation 96% 02/24/2024 5:14 PM GUEST SERVICES AMBASSADOR Inhaled Oxygen Concentration - - Weight 122.5 kg (270 lb) 02/24/2024 4:26 PM GUEST SERVICES AMBASSADOR Height 182.9 cm (6') 02/24/2024 4:26 PM GUEST SERVICES AMBASSADOR Body Mass Index 36.62 02/24/2024 4:26 PM GUEST SERVICES AMBASSADOR Plan of Treatment Health Maintenance Due Date Last Done Comments Depression Screening 1987 Varicella Vaccines (1 of 2 - 13+ 2-dose series) 08/23/2000 Regular Well Visit/Exam 18-64 08/23/2005 Covid-19 Vaccine (2 - 2023-2 5 season) 2023 06/25/2020 Influenza Vaccine (#1) 2023 12/28/2008 DTaP/Tdap/Td Vaccine (3 - Td or Tdap) 10/21/2032 10/21/2022, 10/20/2014 Hepatitis B Screening Completed 09/14/2022 Hepatitis C Screening Completed 09/14/2022 , 08/01/2012 HPV Vaccines Aged Out No longer eligi ble based on patient's age to complete this topic Pneumococcal vaccine <65 Aged Out No longer eligible based on patient's age to complete this topic Procedures Procedure Name Priority Date/Time Associated Diagnosis Comments HEPATITIS C ANTIBODY Routine 09/14/2022 8:25 AM CDT from Last 3 Months or Most Recently Relevant to Health Maintenance Results * (ABNORMAL) Hepatitis C antibody (09/14/2022 8:25 AM CDT) Hep C Ab Reactive( A) Nonreactive CHARISSE SERNA Comment: Interpretive Data Nonreactive: Antibodies to HCV [...] 8:25 AM CDT 09/14/2022 12:19 PM CDT Lupe Soler MD LAB MICROBIOLOGY - GENERAL ORDER THOMAS Final Result CHARISSE [id number] [facility] Department of Laboratories [place], [place] [id number] from Last 3 Months or Most Recently Relevant to Health Maintenance Insurance [facility] Care Teams Bow Maker Gift Wrapping Relationship Specialty Start Date End Date Roland Knight NP [address] [place] [address] PCP - General Pain Management 1//25
--- OUTSIDE RECORDS SUMMARY | 2024-02-28 22:28 | XMS_ITS | Encounter Summary ---
Author Organization [employer] [facility] Address [address] [place] [address] Care Team Providers Care Dolphin Trainer Name Role Phone Unavailable Primary Care Provider Unavailabl e Reason for Visit * Reason Onset Date Comments Medication Problem 09/23/2020 Refill early Encounter Details Date Type Department Care Team (Late st Contact Info) Description 09/23/2020 Telephone [facility] at Work [employer] [place] [address] [place] [address] Sim Velásquez MD NO ADDRESS ON FILE Medication Problem (Refill early ) Social History Tobacco Use Types Packs/Day Years [...] * Telephone Encounter - Anuja Cee - 09/23/2020 1:19 PM CDT LM to call me back and discuss prescriptions * Telephone Encounter - Sim Velásquez MD - 09/23/2020 11:54 AM CDT Unfortunately patient has hx of drug abuse and polysubstance abuse. I am very uncomfortable refilling early. I will take them at their word this time and send note to pharmacy with the refill. Under NO circumstances of any kind, including acts of God, will I refill early ever again. * Telephone Encounter - Anuja Cee - 09/23/2020 11:07 AM CDT Pts called asking for the refill to be pushed through since it is 5 days early and she stated that they pharmacy stated it could not be filled until 09/26/2020. I let her know that the Adderall and Concerta should have enough to get him through until 09/27/2020. She kept stating that he was just very worried that he was going to run out. After I kept explaining that it is at the pharmacy andthat he would be able to pick them up on the , she then told me that he is out. I explained thathe should only be taking these medications as prescribed QD. She then told me they had a house guest that took some of his Adderall, concerta and some of her medications as well. I let her know that I will talk to you and see if you would want them to be filled early, if so we will have to send a new script with a note on it stating ok to fill early. Please advise. documented in this encounter Plan of Treatment Upcoming Encounters Date Type Department Care Team (Late st Contact Info) Description 03/27/2024 2:45 PM STATOR TESTER Office Visit [facility] Oncology and Hematology - [place] [address] [place] [address] [facility] [address] [place] [address] True Wilson MD [address] [facility] [address] [place] [address] documented as of this encounter Visit Diagnoses Not on filedocumented in this encounter Additional Health Concerns Assessment Noted Time PHQ-9 Depression Total Score: 4 02/25/19 21 3:00 PM STATOR TESTER documented as of this encounter
--- OUTSIDE RECORDS SUMMARY | 2024-02-28 22:28 | XMS_ITS | Encounter Summary ---
Author Organization [facility] Healthcare Address [address] [place] [address] Care Team Providers Care Chief Legal Officer Name Role Phone Unknown, Notinfile Primary Care Provider Unavail able Encounter Details Date Type Department Care Team (Late st Contact Info) Description 09/14/2022 7:45 AM CDT Lab [facility] Medical Office Bldg 3 OP Lab [facility] [address] [address] Social History Tobacco Use Types Packs/Day Years Used Date Smoking Tobacco: Never Assessed Personal Safety Answer Date Recorded Have you ever been in or are you currently in a harmful physical or emotional relationship or is someone making you feel afraid or unsafe? 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 GONORRHOEAE/C. TRACHOMATIS AMPLIFICATION Routine 09/14/2022 8:25 AM CDT EGFR Routine 09/14/2022 8:25 AM CDT DIFFERENTIAL AUTO Routine 09/14/2022 8:2 5 AM CDT HIV 1/2 ANTIBODY PLUS P24 ANTIGEN Routine 09/14/2022 8:25 AM CDT CBC WITH AUTO DIFFERENTIAL Routine 09/14/2022 8:25 AM CDT HEPATITIS C ANTIBODY Routine 09/14/2022 8:25 AM CDT HEPATITIS B CORE ANTIBODY, TOTAL Routine 09/14/2022 8:25 AM CDT VITAMIN D 25 HYDROXY Routine 09/14/2022 8:25 AM CDT RPR Routine 09/14/2022 8:25 AM CDT HEPATITIS B SURFACE ANTIBODY (IMMUNE STATUS) Routine 09/14/2022 8:25 AM CDT HEPATITIS B SURFACE ANTIGEN Routine 09/14/2022 8:25 AM CDT TSH Routine 09/14/2022 8:25 AM CDT HEMOGLOBIN A1C Routine 09/14/2022 8:25 AM CDT LIPID PANEL Routine 09/14/2022 8:25 AM CDT COMPREHENSIVE METABOLIC PANEL Routine 09/14/2022 8:25 AM CDT documented in this encounter Results * (ABNORMAL) Reflex Hepatitis C RNA, Quantitative (09/14/2022 8:25 AM CDT) [facility] HCV RNA result Detected( A) CHARISSE SERNA Comment: The quantifiable range of this assay is 15 IU/mL to 100,000,000 IU/mL (1.18 log IU/mL to 8.00 log IU/mL). Testing was performed by the GET 6800 HCV Test ([employer] Testing performed at [facility] Current Interpretive Data was last revised on 2020 Testing performed by: [facility], [address] [facility] [place]., [address] HCV RNA IU/mL 5,810 IUnits/mL CHARISSE SERNA Comment:Testing performed by : [facility], [address] [place]., [address] HCV RNA log IU/mL 3.76 log IUnits/mL CHARISSE SERNA Comment:Testing performed by : [facility], [address] [place]., [address] Blood 09/14/2022 8:25 AM CDT 09/14/2022 3:07 PM CDT us Lupe Soler MD LAB BLOOD ORDERABLES Final Resul t CHARISSE SERNA [address] [facility] Department [place] [address] * eGFR (09/14/2022 8:25 AM CDT) eGFR 118 mL/min/1. 73 m2 CHARISSE SERNA Comment: Interpretive Data Reference Interval Normal ?>/= [...] interpretive data was last reviewed 2020. Blood 09/14/2022 8:25 AM CDT 09/14/2022 12:19 PM CDT us Lupe Soler MD LAB BLOOD ORDERABLES Final Resul t CHARISSE [address] [facility] Department [place] [address] * Differential, auto (09/14/2022 8:25 AM CDT) Neutrophil abs 2.4 1.7 - 6.5 K/cumm [facility] Imm gran abs 0.0 0.0 - 0.1 K/cumm [facility] Lymphocyte abs 2.2 0.8 - 3.3 K/cumm [facility] Monocyte abs 0.4 0.2 - 0.8 K/cumm [facility] Eosinophil abs 0.3 0.0 - 0.5 K/cumm [facility] Basophil abs 0.0 0.0 - 0.1 K/cumm [facility] Neutrophil pct 46.4 % [facility] Comment: Interpretive Data Percent cell count reference ranges are not reported, since discordance with absolute values may lead to misinterpretation of CBC data. Current Interpretive Data was last revised on 2017. Imm gran pct 0.2 % [facility] Comment: Interpretive Data Percent cell count reference ranges are not reported, since discordance with absolute values may lead to misinterpretation of CBC data. Current Interpretive Data was last revised on 2017. Lymphocyte pct 41.7 % [facility] Comment: Interpretive Data Percent cell count reference ranges are not reported, since discordance with absolute values may lead to misinterpretation of CBC data. Current Interpretive Data was last revised on 2017. Monocyte pct 6.6 % [facility] Comment: Interpretive Data Percent cell count reference ranges are not reported, since discordance with absolute values may lead to misinterpretation of CBC data. Current Interpretive Data was last revised on 2017. Eosinophil pct 4.7 % [facility] Comment: Interpretive Data Percent cell count reference ranges are not reported, since discordance with absolute values may lead to misinterpretation of CBC data. Current Interpretive Data was last revised on 2017. Basophil pct 0.4 % CHARISSE Comment: Interpretive Data Percent cell count reference ranges are not reported, since discordance with absolute values may lead to misinterpretation of CBC data. Current Interpretive Data was last revised on 2017. Blood 09/14/2022 8:25 AM CDT 09/14/2022 12:19 PM CDT Lupe Soler MD LAB BLOOD ORDERABLES Final Resul t Performing Organization Address [facility] de Phone Number [address] [address] * Hemoglobin A1c (09/14/2022 8:25 AM CDT) Pathologist [facility] Hgb A1C 5.3 4.0 - 5.6 % CHARISSE Estimated Average Glucose 105 mg/dL CHARISSE Comment: The ADA recommends reporting an estimated Average Glucose (eAG) with all Hemoglobin A1c results using the equation derived from a study of 507 normal and diabetic adults. ??Minority populations were underrepresented and children were not included. ?? (Diabetes Care 31:5391-8765, 2008). ??The eAG is not equivalent to a fasting glucose. Blood 09/14/2022 8:25 AM CDT 09/14/2022 12:19 PM CDT Lupe Soler MD LAB BLOOD ORDERABLES Final Resul t Performing Organization Address [facility] de Phone Number [address] [address] * Comprehensive metabolic panel (09/14/2022 8:25 AM CDT) Pathologist [facility] Sodium 138 135 - 145 mmol/L [facility] Potassium, pl 4.2 3.3 - 4.9 mmol/L [facility] Chloride 104 97 - 110 mmol/L [facility] CO2 26 22 - 32 mmol/L [facility] Anion gap 8 2 - 15 mmol/L [facility] BUN 12 6 - 25 mg/dL [facility] Creatinine 0.80 0.80 - 1.30 mg/dL [facility] Glucose 103 70 - 199 mg/dL [facility] Comment: Interpretive Data Fasting glucose >/= 126 [...] classification and Diagnosis of Diabetes Diabetes Care 2021; 46: S19-S40. Current interpretive data was last revised 2022. Calcium 9.3 8.5 - 10.3 mg/dL [facility] Bilirubin, total <0.2 0.1 - 1.2 mg/dL [facility] Protein, pl 7.9 6.5 - 8.5 g/dL [facility] Albumin 4.0 3.5 - 5.0 g/dL [facility] Alk phos 92 40 - 130 Units/L [facility] ALT 30 7 - 55 Units/L [facility] AST 33 10 - 50 Units/L [facility] Blood 09/14/2022 8:25 AM CDT 09/14/2022 12:19 PM CDT us Lupe Soler MD LAB BLOOD ORDERABLES Final Resul t [facility] [address] [facility] Department [place] [address] * (ABNORMAL) CBC with auto differential (09/14/2022 8:25 AM CDT) [facility] WBC 5.3 3.8 - 9.9 K/cumm [facility] Hgb 14.4 13.0 - 17.5 g/dL [facility] Hct 43.8 38.9 - 50.3 % [facility] Plt 88(L) 150 - 400 K/cumm [facility] MPV 12.8(H) 9.1 - 12.3 fL [facility] RBC 5.14 4.30 - 5.80 M/cumm [facility] MCV 85.2 81.3 - 96.4 fL [facility] MCH 28.0 27.1 - 33.3 pg CHARISSE MCHC 32.9 32.3 - 35.7 g/dL CHARISSE RDW CV 12.9 11.1 - 14.9 % CHARISSE RDW SD 39.8 35.7 - 48.1 fL CHARISSE NRBC abs 0.00 0.00 - 0.01 K/cumm [facility]SE Blood 09/14/2022 8:25 AM CDT 09/14/2022 12:19 PM CDT Lupe Soler MD LAB BLOOD ORDERABLES Final Resul t CHARISSE [facility] [place] [address] * N. gonorrhoeae/C. trachomatis Amplification Urine (09/14/2022 8:25 AM CDT) C. trachomatis Not Detected Not Detected CHARISSE N. gonorrhoeae Not Detected Not Detected CHARISSE Comment: Interpretive Data Testing performed by the [facility]. This assay detects Chlamydia trachomatis and Neisseria gonorrhoeae by nucleic acid amplification testing (NAAT). This test is approved by the [facility] Food and Drug Administration and the performance characteristics have been verified by the laboratory. The performance characteristics of this test have not been evaluated in individuals less than 14 years of age. Current Interpretive Data was last revised on 2019. Urine 09/14/2022 8:25 AM CDT 09/14/2022 12:18 PM CDT us Lupe Soler MD LAB MICROBIOLOGY - GENERAL ORDER THOMAS Final Result CHARISSE [address] [place] [address] * RPR Blood (09/14/2022 8:25 AM CDT) RPR Nonreactive Nonreactive CHARISSE Comment:Testing performed by : [facility], [address] [facility] [place] [address] Blood 09/14/2022 8:25 AM CDT 09/14/2022 2:59 PM CDT Lupe Soler MD LAB MICROBIOLOGY - GENERAL ORDER THOMAS Final Result Performing Organization Address [facility] de Phone Number [address] [place] [address] * TSH (09/14/2022 8:25 AM CDT) Thyroid Stimulating Hormone 3.60 0.30 - 4.20 mcIUnit/mL [facility] Blood 09/14/2022 8:25 AM CDT 09/14/2022 12:19 PM CDT Lupe Soler MD LAB BLOOD ORDERABLES Final Resul t Performing Organization Address [facility] de Phone Number [address] [place] [address] * (ABNORMAL) Vitamin D 25 hydroxy (09/14/2022 8:25 AM CDT) Vitamin D 25-OH 28.0(L) 30.0 - 80.0 ng/mL [facility] Blood 09/14/2022 8:25 AM CDT 09/14/2022 12:19 PM CDT Lupe Soler MD LAB BLOOD ORDERABLES Final Resul t Performing Organization Address [facility] de Phone Number [address] [address] * (ABNORMAL) Lipid panel (09/14/2022 8:25 AM CDT) Cholesterol 146 30 - 199 mg/dL [facility] Comment: Interpretive Data Ages < or = 19 years ??Acceptable: ? <170 mg/dL ??Borderline high: ??170-199 mg/dL ??High: ? >or= 200 mg/dL Ages > or = 20 years ??Desirable: ?<200 mg/dL ??Borderline high: ??200-239 mg/dL ??High: ? >or= 240 mg/dL Literature References: 1. Expert Panel on Integrated Guidelines for Cardiovascular Health and Risk Reduction in Children and Adolescents. Pediatrics 2011;128:S213 2. NCEP Expert Panel. Circulation 2004;110:227 Current Interpretive Data was last revised on 2017. Triglycerides 73 <=149 mg/dL CHARISSE Comment: Interpretive Data Ages < or = 9 years ??Acceptable: ? <75 mg/dL ??Borderline high: ??75-99 mg/dL ??High: ? >or= 100 mg/dL Ages 10 to 20 years ??Acceptable: ? <90 mg/dL ??Borderline high: ??90-129 mg/dL ??High: ? >or= 130 mg/dL Ages > or = 20 years ??Desirable: ?<150 mg/dL ??Borderline high: ??150-199 mg/dL ??High: ? 200-499 mg/dL ?Very high: ?? >or= 499 mg/dL Literature References: 1. Expert Panel on Integrated Guidelines for Cardiovascular Health and Risk Reduction in Children and Adolescents. Pediatrics 2011;128:S213 2. NCEP Expert Panel. Circulation 2004;110:227 Current Interpretive Data was last revised on 2017. HDL 39(L) >=40 mg/dL CHARISSE Comment: Interpretive Data Ages < or = 19 years ??Acceptable: ? >45 mg/dL ??Borderline low: ?? 40-45 mg/dL ??Low: ? <40 mg/dL Ages > or = 20 years ??Desirable: ?>or= 60 mg/dL ??Low: ? <40 mg/dL Literature References: 1. Expert Panel on Integrated Guidelines for Cardiovascular Health and Risk Reduction in Children and Adolescents. Pediatrics 2011;128:S213 2. NCEP Expert Panel. Circulation 2004;110:227 Current Interpretive Data was last revised on 2017. LDL, calculated 92 <=129 mg/dL CHARISSE SERNA Comment: Interpretive Data Ages < or = 19 years ??Acceptable: ? <110 mg/dL ??Borderline high: ??110-129 mg/dL ??High: ?>or= 130 mg/dL Ages > or = 20 years ??Optimal: ? <100 mg/dL ??Near optimal: ?100-129 mg/dL ??Borderline high: ?? 130-159 mg/dL ??High: ?>160 mg/dL Literature References: 1. Expert Panel on Integrated Guidelines for Cardiovascular Health and Risk Reduction in Children and Adolescents. Pediatrics 2011;128:S213 2. NCEP Expert Panel. Circulation 2004;110:227 Current Interpretive Data was last revised on 2017. Non-HDL Cholesterol 107 mg/dL CHARISSE SERNA Comment: Interpretive Data Ages < or = 19 years ??Acceptable: ?<120 mg/dL ??Borderline high: ??120-144 mg/dL ??High: ?>145 mg/dL Ages > or = 20 years ??When triglycerides are >200 mg/dL, Non-HDL cholesterol is a secondary target of ? therapy with treatment goals that are 30 mg/dL greater than the LDL cholesterol target. ? Literature References: 1. Expert Panel on Integrated Guidelines for Cardiovascular Health and Risk Reduction in Children and Adolescents. Pediatrics 2011;128:S213 2. NCEP Expert Panel. Circulation 2004;110:227 Current Interpretive Data was last revised on 2017. Chol/HDL ratio 4 CHARISSE SERNA Blood 09/14/2022 8:25 AM CDT 09/14/2022 12:19 PM CDT us Lupe Soler MD LAB BLOOD ORDERABLES Final Resul t CHARISSE [address] [place] [address] * HIV 1/2 Antibody plus p24 Antigen Blood (09/14/2022 8:25 AM CDT) Pathologist [facility] HIV 1/2 ab + p24 ag Nonreactive Nonreactive CHARISSE Blood 09/14/2022 8:25 AM CDT 09/14/2022 12:19 PM CDT Lupe Soler MD LAB MICROBIOLOGY - GENERAL ORDER THOMAS Final Result Performing Organization Address City/[facility] Co de Phone Number [address] [place] [address] * (ABNORMAL) Hepatitis C antibody (09/14/2022 8:25 AM CDT) Pathologist [facility] Hep C Ab Reactive( A) Nonreactive CHARISSE [...] MICROBIOLOGY - GENERAL ORDER THOMAS Final Result Performing Organization Address City/[facility] Co de Phone Number [address] [place] [address] * Hepatitis B surface antibody (immune status) (09/14/2022 8:25 AM CDT) Pathologist [facility] HBsAb (immune status) Reactive CHARISSE Comment: Interpretive Data Nonreactive: This result is consistent with a lack of immunity to Hepatitis B Virus when used in the setting of routine screening. Equivocal: The immune status of the individual should be further assessed, if appropriate, after consideration of clinical status, risk factors, and additional diagnostic information. Reactive: This result is consistent with immunity to Hepatitis B Virus when used in the setting of routine screening. Current interpretive data was last revised on 19. HBsAb (immune status) index >1,000.0 mIUnits/m L CHARISSE Blood 09/14/2022 8:25 AM CDT 09/14/2022 12:19 PM CDT Lupe Soler MD LAB MICROBIOLOGY - GENERAL ORDER THOMAS Final Result [address] [place] [address] * Hepatitis B Surface Antigen (09/14/2022 8:25 AM CDT) HepBsAg Nonreactive Nonreactive CHARISSE Blood 09/14/2022 8:25 AM CDT 09/14/2022 12:19 PM CDT Lupe Soler MD LAB MICROBIOLOGY - GENERAL ORDER THOMAS Final Result Performing Organization Address City/[facility] Co de Phone Number [address] [place] [address] * Hepatitis B core antibody, total (09/14/2022 8:25 AM CDT) Hep B core IgG/IgM Nonreactive Nonreactive [facility] Comment:Testing performed by : [facility], [address] [facility], [place]., [address] Blood 09/14/2022 8:25 AM CDT 09/14/2022 1:43 PM CDT us Lupe Soler MD LAB MICROBIOLOGY - GENERAL ORDER THOMAS Final Result [address] [place] [address] documented in this encounter Visit Diagnoses Not on filedocumented in this encounter Care Teams Chief Legal Officer Relationship Specialty Start Date End Date Unknown, Notinfile PCP - General 12/10/17 02/23/24 documented as of this encounter
--- OUTSIDE RECORDS SUMMARY | 2024-02-28 22:28 | XMS_ITS | Encounter Summary ---
Author Organization [facility] Address [address] [place] [address] Care Team Providers Care Heel Stiffener Name Role Phone Unavailable Primary Care Provider Unavailabl e Reason for Visit * Reason Onset Date Comments video visit charline 11/01/2022 Encounter Details Date Type Department Care Team (Late Contact Info) Description 11/01/2022 Telephone [facility] [employer] [address] [place] [address] Dior Vallecillo MD [address] [place] [phone] video visit charline Social History Tobacco Use Types Packs/Day Years [...] encounter Miscellaneous Notes * Telephone Encounter - Esther Cotto - 11/01/2022 1:57 PM CDT Called patient for video visit. No message left. Patient mailbox was full. documented in this encounter Plan of Treatment Upcoming Encounters Date Type Department Care Team (Late Contact Info) Description 03/27/2024 2:45 PM GENETIC COORDINATOR Office Visit [facility] Oncology and Hematology - Neri Vahid Thurman [address] [address] True Wilson MD [facility] [address] [address] documented as of this encounter Visit Diagnoses Not on filedocumented in this encounter Additional Health Concerns Assessment Noted Time PHQ-9 Depression Total Score: 4 02/25/19 21 3:00 PM GENETIC COORDINATOR documented as of this encounter
--- OUTSIDE RECORDS SUMMARY | 2024-02-28 22:28 | XMS_ITS | Encounter Summary ---
Author Organization [facility] Address [address] [place] [address] Care Team Providers Care Stone Planer Name Role Phone Unavailable Primary Care Provider Unavailabl e Reason for Visit * Reason Onset Date Comments Medication Refill 02/05/2021 Encounter Details Date Type Department Care Team (Late st Contact Info) Description 02/05/2021 Refill [facility] at Work [employer] [place] [address] [place] [address] Sim Velásquez MD NO ADDRESS [...] st Contact Info) Description 03/27/2024 2:45 PM AIRCRAFT LANDING GEAR INSPECTOR Office Visit [facility]3] Oncology and Hematology - Neri [address] [facility] [address] [place] [address] True Wilson MD [address] [facility] [address] [place] [address] documented as of this encounter Visit Diagnoses Diagnosis Anxiety state Anxiety state, unspecified Attention deficit disorder (ADD) in adult documented in this encounter Additional Health Concerns Assessment Noted Time PHQ-9 Depression Total Score: 4 02/25/19 21 3:00 PM AIRCRAFT LANDING GEAR INSPECTOR documented as of this encounter
--- OUTSIDE RECORDS SUMMARY | 2024-02-28 22:28 | XMS_ITS | Encounter Summary ---
Author Organization [facility] Address [address] [place] [address] Care Team Providers Care Sanitation Truck Driver Name Role Phone Unavailable Primary Care Provider Unavailabl e Reason for Visit * Reason Onset Date Comments Medication Refill 01/22/2021 Encounter Details Date Type Department Care Team ([facility] Contact Info) Description 01/22/2021 Refill [facility] at Work [employer] [address] [place] [address] Sim Velásquez MD NO ADDRESS ON FILE [...] COVID-19? 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 DIE MAKER documented as of this encounter Plan of Treatment Upcoming Encounters Date Type Department Care Team (Late Contact Info) Description 03/27/2024 2:45 PM DIE MAKER Office Visit [facility] Oncology and Hematology - Neri [address] [facility] [address] [place] [address] True Wilson MD [address] [facility] [address] [place] [address] documented as of this encounter Visit Diagnoses Diagnosis Attention deficit disorder (ADD) in adult documented in this encounter Additional Health Concerns Assessment Noted Time PHQ-9 Depression Total Score: 4 02/25/19 21 3:00 PM DIE MAKER documented as of this encounter
--- OUTSIDE RECORDS SUMMARY | 2024-02-28 22:28 | XMS_ITS | Encounter Summary ---
Author Organization [facility] Address [address] [place] [address] Care Team Providers Care Leather Belt Shaper Name Role Phone Unavailable Primary Care Provider Unavailabl e Reason for Visit * Reason Onset Date Comments Medication Refill 09/22/2020 Encounter Details Date Type Department Care Team (Late st Contact Info) Description 09/22/2020 Refill [facility] [address] [place] [address] Sim Velásquez MD NO ADDRESS [...] * Telephone Encounter - Anuja Cee - 09/22/2020 1:49 PM CDT Last refill- 08/27/2020 Last OV-08/27/2020 documented in this encounter Plan of Treatment Upcoming Encounters Date Type Department Care Team (Late st Contact Info) Description 03/27/2024 2:45 PM SUPPLIER QUALITY ENGINEER Office Visit [facility] Oncology and Hematology - Neri [address] [facility] [address] [place] [address] True Wilson MD [address] [facility] [address] [place] [address] documented as of this encounter Visit Diagnoses Diagnosis Anxiety state Anxiety state, unspecified Attention deficit disorder (ADD) in adult documented in this encounter Additional Health Concerns Assessment Noted Time PHQ-9 Depression Total Score: 4 02/25/19 21 3:00 PM SUPPLIER QUALITY ENGINEER documented as of this encounter
--- OUTSIDE RECORDS SUMMARY | 2024-02-28 22:28 | XMS_ITS | Encounter Summary ---
Author Organization [facility] Facility Care Team Providers Care Knifeman Name Role Phone Unavailable Primary Care Provider Unavailabl e Encounter Details Date Type Department Care Team (Late st Contact Info) Description 07/31/2012 10:50 AM CDT - 07/31/2012 4:57 PM CDT Hospital Encounter 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 Gender Identity Not on file Sexual Orientation Not on file documented as of this encounter Plan of Treatment Not on file documented as of this encounter Procedures Procedure Name Priority Date/Time Associated Diagnosis Comments URINE (AEROBIC) CULTURE, CDR Routine 07/31/2012 2:02 PM CDT URINE MICROSCOPY Routine 07/31/2012 2:00 PM CDT URINALYSIS Routine 07/31/2012 2:00 PM CDT PLASMA BASIC METABOLIC PANEL Routine 07/31/2012 11:18 AM CDT BLOOD CELL COUNT (CBC) Routine 07/31/2012 11:18 AM CDT ALL MICROBIOLOGY REPORT SECTION Routine 07/31/2012 12:00 AM CDT DISCHARGE LABORATORY CUMULATIVE REPORT Routine 07/31/2012 12:00 AM CDT documented in this encounter Results * Urine (aerobic) culture (07/31/2012 2:02 PM CDT) Urine (Unknown) 07/31/2012 2 :02 PM CDT 07/31/2012 2:58 PM CDT Narrative HISTORICAL RESULTS - 08/02/2012 11:00 AM CDT No growth Historical Provider LAB MICROBIOLOGY - GENERA L ORDERABLES Final Result Performing Organization Address [facility] Co de Phone Number HISTORICAL RESULTS * (ABNORMAL) Urinalysis (07/31/2012 2:00 PM CDT) Color, ur Yellow Yellow HISTORICAL RESULTS Clarity, ur Clear Clear HISTORIC AL RESULTS Specific gravity, ur 1.008 1.003 - 1.030 HISTORICAL RESULTS pH, ur 6.5 5.0 - 8.0 HISTORICAL RESULTS Protein, ur Negative Trace HISTORIC AL RESULTS Glucose, ur Negative Negative HISTORIC AL RESULTS Ketones, ur Negative Negative HISTORIC AL RESULTS Bilirubin, ur Negative Negative HISTOR ICAL RESULTS U Blood Negative Negative HISTORICAL RESULTS Urobilinogen, quant, ur 2.0 0.0 - 2.0 mg/dl HISTORICAL RESULTS Nitrites, ur Negative Negative HISTORI HERMELINDA RESULTS Leukocyte esterase, ur 1+(A) Negative HISTORICAL RESULTS Urine 07/31/2012 2:00 PM CDT Sebas Clifton MD LAB BLOOD ORDERABLES Final Res ult HISTORICAL RESULTS * Urine microscopy (07/31/2012 2:00 PM CDT) RBC, ur 0 0 - 3 /hpf HISTORICA L RESULTS WBC, ur 0 0 - 5 /hpf HISTORICA L RESULTS Bacteria, ur Negative Trace HISTORI HERMELINDA RESULTS Epithelial cells, renal, ur 0 0 - 0 /hpf HISTORICAL RESULTS Mucus, ur Small /hpf HISTORICAL RESULTS Urine 07/31/2012 2:00 PM CDT Sebas Clifton MD LAB BLOOD ORDERABLES Final Res t Performing Organization Address [facility] de Phone Number HISTORICAL RESULTS * (ABNORMAL) Plasma basic metabolic panel (07/31/2012 11:18 AM CDT) Glucose 103 65 - 199 mg/dl HISTORICAL RESULTS Sodium 141 135 - 145 mmol/L HISTORICAL RESULTS BUN 6(L) 8 - 25 mg/dl HISTORICAL RESULTS K, pl 4.2 3.3 - 4.9 mmol/L HISTORICAL RESULTS Creatinine 0.75 0.70 - 1.30 mg/dl HISTORICAL RESULTS Chloride 103 97 - 110 mmol/L HISTORICAL RESULTS Calcium 9.8 8.6 - 10.3 mg/dl HISTORICAL RESULTS CO2 29 22 - 32 mmol/L HISTORICAL RESULTS A. gap 9 0 - 16 mmol/L HISTORICAL RESULTS Plasma 07/31/2012 11:1 8 AM CDT Sebas Clifton MD LAB BLOOD ORDERABLES Final Res t Performing Organization Address [facility] de Phone Number HISTORICAL RESULTS * (ABNORMAL) Blood cell count (CBC) (07/31/2012 11:18 AM CDT) WBC 9.9(H) 3.8 - 9.8 K/cumm HISTORICAL RESULTS RBC 4.72 4.50 - 5.70 M/cumm HISTORICAL RESULTS Hgb 13.8 13.8 - 17.2 g/dl HISTORICAL RESULTS Hct 41.1 40.7 - 50.3 % HISTORICAL RESULTS MCV 87.0 80.0 - 97.6 fl HISTORICAL RESULTS MCH 29.2 26.7 - 33.7 pg HISTORICAL RESULTS MCHC 33.6 32.7 - 35.5 g/dl HISTORICAL RESULTS Rdw 12.1 11.8 - 14.6 % HISTORICAL RESULTS Platelets 227 140 - 440 K/cumm HISTORICAL RESULTS MPV 9.1 6.8 - 10.4 fl HISTORICAL RESULTS Neutrophils 68.8 38.7 - 74.5 % HISTORICAL RESULTS Lymphocytes 26.0 20.0 - 54.3 % HISTORICAL RESULTS Monos 5.0 4.3 - 13.5 % HISTORICAL RESULTS Eosinophils 0.2 0.0 - 6.0 % HISTORICAL RESULTS Basophils 0.0 0.0 - 3.0 % HISTORICAL RESULTS Neutrophils, abs 6.8(H) 1.8 - 6.6 K/cumm HISTORICAL RESULTS Lymphocytes, abs 2.6 1.2 - 3.3 K/cumm HISTORICAL RESULTS Monocytes, absolute 0.5 0.2 - 1.2 K/cumm HISTORICAL RESULTS Eosinophils, abs 0.0 0.0 - 0.5 K/cumm HISTORICAL RESULTS Basophils, abs 0.0 0.0 - 0.2 K/cumm HISTORICAL RESULTS Blood specimen (specimen) 07/31/2012 11:18 AM CDT us Sebas Clifton MD LAB BLOOD ORDERABLES Final Res ult HISTORICAL RESULTS * All Microbiology Report Section (07/31/2012 12:00 AM CDT) 07/31/2012 Narrative HISTORICAL RESULTS - 08/02/2012 2:32 PM CDT ? [facility] ?[facility] [address] ?[place], [place] [address] ? Patient Name: ??ROLAND GARCIA, BRIAN W ? Med Rec Number: [id number] ? Fin Number: ?[id number] ? Date: ?1985 ? Sex/Age: ? Male 26 years ? Admit Date: ?07/31/2012 ? Discharge Date: 07/31/2012 ? Doctor: ?Petr Hernandez ? Facility: ?[facility] ? Location: ?EM-6 ?* Abnormal ??A Alert ??f Footnote ??^ Corrected ??L Low ??H High ?i Interp Data ??@ Ref Lab ? Chart Type:Cumulative ?* * * * MICROBIOLOGY - URINE * * * * ?PROCEDURE: Urine Culture ? SOURCE: Urine ? COLLECTED: 06/10/13 ??1402 ?BODY SITE: ? STARTED: 06/10/13 ??1458 ? FREE TEXT SOURCE: ? FINAL REPORT ? REPORTED: 08/02/12 1100 ? No growth us Historical Provider MD LAB MICROBIOLOGY - GENERA L ORDERABLES Final Result HISTORICAL RESULTS * Discharge Laboratory Cumulative Report (07/31/2012 12:00 AM CDT) 07/31/2012 Narrative HISTORICAL RESULTS - 08/02/2012 11:18 AM CDT ?[facility] ?Department of Laboratories ? [facility] [address] ? [place] [address] Patient Name: ??BRIAN WATKINS JR Med Rec Number: [id number] Fin Number: ?[id number] Date: ?1985 Sex/Age: ? Male 26 years Admit Date: ?07/31/2012 Discharge Date: 07/31/2012 Doctor: ?Petr Hernandez Facility: ?[facility] Location: ?EM-6 Chart Printed: 08/02/2012 11:18 ?? * Abnormal ?? C Critical ?? f Footnote ?? ^ Corrected ?? L Low ?? H High ? i Interp Data ?? @ Reference Lab ?Chart Type:Cumulative ? SELECTED ELECTROLYTES ?Test: Sodium ? Plasma Potassium ??Chloride ? Reference: [135-145] ??[3.3-4.9] ? [97-110] ? Units: mmol/L ? mmol/L ?mmol/L 07/31/2012 ?? 11:18:00 ?? 141 ?4.2 ? 103 ?Test: Total CO2 ??Anion Gap ? Reference: [22-32] ?[0-16] ? Units: mmol/L ? mmol/L 07/31/2012 ?? 11:18:00 ?? 29 ? 9 ? STANDARD BLOOD CHEMISTRY ?Test: BUN ? Creatinine ?? Glucose ?? Total Calcium ? Reference: [8-25] ??[0.70-1.30] ??[65-199] ??[8.6-10.3] ? Units: mg/dL ?? mg/dL ?mg/dL ? mg/dL 07/31/2012 ?? 11:18:00 ?? 6 ??L ?0.75 ? 103 ? 9.8 ?URINALYSIS ?Macroscopic ?Test: Color ? Clarity ??Specific [place] ??pH ? Reference: [Yellow] ??[Clear] ??[1.003-1.030] ? [5.0-8.0] ? Units: 07/31/2012 ?? 14:00:00 ?? Yellow ?Clear ?1.008 ? 6.5 ?Test: Albumin ?? Glucose ? Ketones ? Bilirubin ? Reference: [Trace] ?? [Negative] ??[Negative] ??[Negative] ? Units: 07/31/2012 ?? 14:00:00 ?? Negative ??Negative ?Negative ?Negative ?URINALYSIS ?Macroscopic ?Test: Blood ? Urobilinogen ??Nitrite ? Reference: [Negative] ??[0.0-2.0] ? [Negative] ? Units: ? mg/dL 07/31/2012 ?? 14:00:00 ?? Negative ?2.0 ? Negative ?Test: Leuk Esterase ? Reference: [Negative] ? Units: 07/31/2012 ?? 14:00:00 ?? 1+ ??* ?Microscopic ?Test: Mucus Thrds ??RBC Ur ??WBC Ur ??Bacteria Ur ? Reference: ?[0-3] ?? [0-5] ?? [Trace] ? Units: /HPF ? /HPF ?/HPF 07/31/2012 ?? 14:00:00 ?? Small ?0 ? 0 ? Negative ?Test: Epithl Renl Ur ? Reference: [0-0] ? Units: /HPF 07/31/2012 ?? 14:00:00 ?? 0 ? COMPLETE BLOOD COUNT ?Test: WBC ?RBC ?Hgb ? Reference: [3.8-9.8] ??[4.50-5.70] ??[13.8-17.2] ? Units: K/cumm ? M/cumm ? g/dL 07/31/2012 ?? 11:18:00 ?? 9.9 ??H ? 4.72 ? 13.8 ?Test: Hct ?Platelet Ct ??MCV ? Reference: [40.7-50.3] ??[140-440] ?[80.0-97.6] ? Units: % ?K/cumm ? fL 07/31/2012 ?? 11:18:00 ?? 41.1 ? 227 ?87.0 ?Test: MCH ?MCHC ? RDW ? Reference: [26.7-33.7] ??[32.7-35.5] ??[11.8-14.6] ? Units: pg ? g/dL ? % 07/31/2012 ?? 11:18:00 ?? 29.2 ? 33.6 ? 12.1 ?Test: MPV ? Reference: [6.8-10.4] ? Units: fL 07/31/2012 ?? 11:18:00 ?? 9.1 ? AUTOMATED WHITE CELL DIFFERENTIAL ?Test: Neut Pct Auto ??Lymph Pct Auto ??[place] Pct Auto ? Reference: [38.7-74.5] ?[20.0-54.3] ? [4.3-13.5] ? Units: % ?% ? % 07/31/2012 ?? 11:18:00 ?? 68.8 ? 26.0 ?5.0 ?Test: Eos Pct Auto ??Baso Pct Auto ??Neut Abs Auto ? Reference: [0.0-6.0] ? [0.0-3.0] ?[1.8-6.6] ? Units: % ? % ?K/cumm 07/31/2012 ?? 11:18:00 ?? 0.2 ? 0.0 ?6.8 ??H ?Test: Lymph Abs Auto ??[place] Abs Auto ??Eos Abs Auto ? Reference: [1.2-3.3] ? [0.2-1.2] ?[0.0-0.5] ? Units: K/cumm ?K/cumm ? K/cumm 07/31/2012 ?? 11:18:00 ?? 2.6 ? 0.5 ?0.0 ?Test: Baso Abs Auto ? Reference: [0.0-0.2] ? Units: K/cumm 07/31/2012 ?? 11:18:00 ?? 0.0 ? MICROBIOLOGY - ALL TESTS ? PROCEDURE: Urine Culture ?SOURCE: Urine COLLECTED: 07/31/12 ??1402 ? BODY SITE: STARTED: 07/31/12 ??1458 FREE TEXT SOURCE: FINAL REPORT REPORTED: 08/02/12 1100 No growth ? MICROBIOLOGY - URINE ? PROCEDURE: Urine Culture ?SOURCE: Urine COLLECTED: 07/31/12 ??1402 ? BODY SITE: STARTED: 07/31/12 ??1458 FREE TEXT SOURCE: FINAL REPORT REPORTED: 08/02/12 1100 No growth us Historical Provider MD LAB BLOOD ORDERABLES Emily l Result HISTORICAL RESULTS documented in this encounter Visit Diagnoses Diagnosis Constipation Unspecified constipation Regional enteritis (CMS/HCC) (HCC) Regional enteritis of unspecified site Encounter for long-term (current) use of other medications documented in this encounter
--- OUTSIDE RECORDS SUMMARY | 2024-02-28 22:28 | XMS_ITS | Encounter Summary ---
Author Organization [facility] Address [address] [place] [address] Care Team Providers Care Railway Switch Operator Name Role Phone Unavailable Primary Care Provider Unavailabl e Reason for Visit * Reason Onset Date Comments Medication Refill 03/27/2020 Encounter Details Date Type Department Care Team (Late Contact Info) Description 03/27/2020 Refill [facility] [employer] [place] [address] [place] [address] Tatianna Elizondo, JEYSON [address] [facility] [address] [place] [address] Anxiety state Social History Tobacco Use Types [...] COVID-19? No / Unsure 02/26/2020 2:10 PM MANAGER DELI documented as of this encounter Plan of Treatment Upcoming Encounters Date Type Department Care Team (Late Contact Info) Description 03/27/2024 2:45 PM MANAGER DELI Office Visit [facility] - [place] [address] [place] [address] True Wilson MD [address] [facility] [address] [place] [address] documented as of this encounter Visit Diagnoses Diagnosis Anxiety state Anxiety state, unspecified documented in this encounter Additional Health Concerns Assessment Noted Time PHQ-9 Depression Total Score: 4 02/25/19 21 3:00 PM MANAGER DELI documented as of this encounter
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
--- OUTSIDE RECORDS SUMMARY | 2024-02-28 22:28 | XMS_ITS | Encounter Summary ---
Author Organization [facility] Address [address] [place] [address] Care Team Providers Care Mail Manager Name Role Phone Unavailable Primary Care Provider Unavailabl e Encounter Details Date Type Department Care Team (Late st Contact Info) Description 08/30/2023 External Device Data STL ABSTRACTION Provider, Abstract [...] st Contact Info) Description 03/27/2024 2:45 PM PHOTOGRAPHIC REPRODUCTION TECHNICIAN Office Visit [facility] Oncology and Hematology - [place] [address] [place] [address] [facility] [address] [place] [address] True Wilson MD [address] [facility] [address] [place] [address] documented as of this encounter Visit Diagnoses Not on filedocumented in this encounter Additional Health Concerns Assessment Noted Time PHQ-9 Depression Total Score: 4 02/25/19 21 3:00 PM PHOTOGRAPHIC REPRODUCTION TECHNICIAN documented as of this encounter
--- OUTSIDE RECORDS SUMMARY | 2024-02-28 22:28 | XMS_ITS | Encounter Summary ---
Author Organization [facility] Address [address] [place] [address] Care Team Providers Care Fueler Name Role Phone Unavailable Primary Care Provider Unavailabl e Reason for Visit * Reason Onset Date Comments Medication Refill 02/26/2020 Encounter Details Date Type Department Care Team (Late Contact Info) Description 02/26/2020 Refill [facility] at Work [employer] [place] [address] [place] [address] Tatianna Elizondo, JEYSON [address] [facility] [address] [place] [address] Anxiety state (Primary Dx) Social History Tobacco Use Types [...] COVID-19? No / Unsure 02/26/2020 2:10 PM COUNSEL documented as of this encounter Plan of Treatment Upcoming Encounters Date Type Department Care Team (Late Contact Info) Description 03/27/2024 2:45 PM COUNSEL Office Visit [facility] Oncology and Hematology - [place] [address] [facility] [address] [place] [address] [place] [address] True Wilson MD [address] [facility] [address] [place] [address] documented as of this encounter Visit Diagnoses Diagnosis Anxiety state- Primary Anxiety state, unspecified documented in this encounter Additional Health Concerns Assessment Noted Time PHQ-9 Depression Total Score: 4 02/25/19 21 3:00 PM COUNSEL documented as of this encounter
--- OUTSIDE RECORDS SUMMARY | 2024-02-28 22:28 | XMS_ITS | Encounter Summary ---
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
--- OUTSIDE RECORDS SUMMARY | 2024-02-28 22:28 | XMS_ITS | Encounter Summary ---
Author Organization [facility] Facility Care Team Providers Care Collection Card Clerk Name Role Phone Unavailable Primary Care Provider Unavailabl e Encounter Details Date Type Department Care Team (Late st Contact Info) Description 08/01/2012 9:56 PM CDT - 08/02/2012 1:23 PM CDT Hospital [facility] [address] [facility] [address] [place] [address] Andrew Lau MD [address] [facility] [address] [place] [address] Other constipation; Chronic hepatitis C (CMS/HCC) (HCC); Leukocytosis; Opioid type dependence, abuse (HCC); Other specified disorders of intestines; Other opiates and related narcotics causing adverse effect in therapeutic use Social History Tobacco Use Types Packs/Day Years Used Date Smoking Tobacco: Never Assessed Sex and Gender Information Value Date Recorded Sex Assigned at Not on file 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 Gender Identity Not on file Sexual Orientation Not on file documented as of this encounter Last Filed Vital Signs Vital Sign Reading Time Taken Comments Blood Pressure 146/67 08/02/2012 5:45 AM CDT Pulse 99 08/02/2012 5:45 AM CDT Temperature - - Respiratory Rate - - Oxygen Saturation 98% 08/02/2012 5:45 AM CDT Inhaled Oxygen Concentration - - Weight 101.4 kg (223 lb 7.7 oz) 08/02/2012 6:00 AM CDT Height 182.9 cm (6') 08/02/2012 12:12 AM CDT Body Mass Index 30.31 08/02/2012 12:12 AM CDT documented in this encounter Plan of Treatment Not on file documented as of this encounter Procedures Procedure Name Priority Date/Time Associated Diagnosis Comments DISCHARGE LABORATORY CUMULATIVE REPORT Routine 08/02/2012 12:00 AM CDT BLOOD LACTIC ACID Routine 08/01/2012 7:5 9 PM CDT ABDOMINAL RADIOGRAPHY, FRONTAL (AP) Routine 08/01/2012 6:56 PM CDT URINE (AEROBIC) CULTURE, CDR Routine 08/01/2012 5:45 PM CDT URINE MICROSCOPY Routine 08/01/2012 5:45 PM CDT URINALYSIS Routine 08/01/2012 5:[address] ABDOMEN PELVIS W CONTRAST Routine 08/01/2012 4:34 PM CDT PLASMA COMPREHENSIVE METABOLIC PANEL Routine 08/01/2012 2:30 PM CDT BLOOD CELL COUNT (CBC) Routine 3 2:30 PM CDT XR ABDOMEN 2 VW Routine 08/01/2012 9:45 AM CDT ALL MICROBIOLOGY REPORT SECTION Routine 08/01/2012 12:00 AM CDT documented in this encounter Results * Discharge Laboratory Cumulative Report (08/02/2012 12:00 AM CDT) 08/02/2012 Narrative HISTORICAL RESULTS - 08/03/2012 11:23 AM CDT ?[facility] ?Department of Laboratories ? [address] [facility] ? [place] [address] Patient Name: ??BRIAN WATKINS JR Med Rec Number: [id number] Fin Number: ?[id number] Date: ?1985 Sex/Age: ? Male 26 years Admit Date: ?08/01/2012 Discharge Date: 08/02/2012 Doctor: ?Andrew Lau Facility: ?[facility] Location: ?[id number] Chart Printed: 08/03/2012 11:23 ?? * Abnormal ?? C Critical ?? f Footnote ?? ^ Corrected ?? L Low ?? H High ? i Interp Data ?? @ Reference Lab ?Chart Type:Cumulative ? SELECTED ELECTROLYTES ?Test: Sodium ? Plasma Potassium ??Chloride ? Reference: [135-145] ??[3.3-4.9] ? [97-110] ? Units: mmol/L ? mmol/L ?mmol/L 08/01/2012 ?? 14:30:00 ?? 138 ?See Comment ??f ?100 08/01/2012 14:30:00 ??Plasma Potassium: CRDT; Grossly Hemolyzed sample; Unable to test. ?Test: Total CO2 ??Anion Gap ? Reference: [22-32] ?[0-16] ? Units: mmol/L ? mmol/L 08/01/2012 ?? 14:30:00 ?? 26 ? 12 ? STANDARD BLOOD CHEMISTRY ?Test: BUN ? Creatinine ?? Total Bilirubin ??Glucose ? Reference: [8-25] ??[0.70-1.30] ??[0.3-1.1] ?[65- 199] ? Units: mg/dL ?? mg/dL ?mg/dL ?mg/dL 08/01/2012 ?? 14:30:00 ?? 7 ??L ?0.73 ? 0.3 ??f ? 132 08/01/2012 14:30:00 ??Total Bilirubin: Hemolyzed; result may be falsely elevated. ?Test: Total Calcium ??Plasma Total Protein ??Albumin ? Reference: [8.6-10.3] ? [6.5-8.5] ? [3.6- 5.0] ? Units: mg/dL ?g/dL ?g/dL 08/01/2012 ?? 14:30:00 ?? 9.8 ?9.0 ??Hf ? 4.9 08/01/2012 14:30:00 ??Plasma Total Protein: Hemolyzed; result may be falsely elevated. ?ENZYMES ?Test: Alkaline Phosphatase ??ALT ?AST ? Reference: [38-126] ?[7-53] ?? [11-47] ? Units: Units/L ? Units/L ??Units/L 08/01/2012 ?? 14:30:00 ?? 84 ??f ? 187 ??Hf ??129 ??Hf 08/01/2012 14:30:00 ??Alkaline Phosphatase: Hemolyzed; result may be falsely decreased. 08/01/2012 14:30:00 ??ALT: Hemolyzed; result may be falsely elevated. 08/01/2012 14:30:00 ??AST: Hemolyzed; result may be falsely elevated. ?URINALYSIS ?Macroscopic ?Test: Color ? Clarity ??Specific [place] ??pH ? Reference: [Yellow] ??[Clear] ??[1.003-1.030] ? [5.0-8.0] ? Units: 08/01/2012 ?? 17:45:00 ?? Yellow ?Clear ?1.020 ? 6.0 ?Test: Albumin ??Glucose ? Ketones ? Bilirubin ? Reference: [Trace] ??[Negative] ??[Negative] ??[Negative] ? Units: 08/01/2012 ?? 17:45:00 ?? 1+ ??* ?Negative ?Negative ?Negative ?Test: Blood ? Urobilinogen ??Nitrite ? Reference: [Negative] ??[0.0-2.0] ? [Negative] ? Units: ? mg/dL 08/01/2012 ?? 17:45:00 ?? Negative ?<2.0 ?Negative ?Test: Leuk Esterase ? Reference: [Negative] ? Units: 08/01/2012 ?? 17:45:00 ?? 2+ ??* ?Microscopic ?Test: Epithl Squam ??Mucus Thrds ??RBC Ur ??WBC Ur ? Reference: ?[0-3] ?? [0-5] ? Units: /LPF ?/HPF ? /HPF ?/HPF 08/01/2012 ?? 17:45:00 ?? 6 ? Moderate ? 0 ? 5 ?Test: Bacteria Ur ??Epithl Renl Ur ??Hyaline Cast ? Reference: [Trace] ?[0-0] ? [0-0] ? Units: ?/HPF ?/LPF 08/01/2012 ?? 17:45:00 ?? Trace ?0 ? >2 ??H ? COMPLETE BLOOD COUNT ?Test: WBC ?RBC ?Hgb ? Reference: [3.8-9.8] ??[4.50-5.70] ??[13.8-17.2] ? Units: K/cumm ? M/cumm ? g/dL 08/01/2012 ?? 14:30:00 ?? 18.4 ??H ?5.22 ? 15.1 ?Test: Hct ?Platelet Ct ??MCV ? Reference: [40.7-50.3] ??[140-440] ?[80.0-97.6] ? Units: % ?K/cumm ? fL 08/01/2012 ?? 14:30:00 ?? 45.7 ? 239 ?87.7 ?Test: MCH ?MCHC ? RDW ? Reference: [26.7-33.7] ??[32.7-35.5] ??[11.8-14.6] ? Units: pg ? g/dL ? % 08/01/2012 ?? 14:30:00 ?? 29.0 ? 33.0 ? 12.4 ?Test: MPV ? Reference: [6.8-10.4] ? Units: fL 08/01/2012 ?? 14:30:00 ?? 8.5 ? AUTOMATED WHITE CELL DIFFERENTIAL ?Test: Neut Pct Auto ??Lymph Pct Auto ??[place] Pct Auto ? Reference: [38.7-74.5] ?[20.0-54.3] ? [4.3-13.5] ? Units: % ?% ? % 08/01/2012 ?? 14:30:00 ?? 80.4 ??H ?14.4 ??L ? 4.7 ?Test: Eos Pct Auto ??Baso Pct Auto ??Neut Abs Auto ? Reference: [0.0-6.0] ? [0.0-3.0] ?[1.8-6.6] ? Units: % ? % ?K/cumm 08/01/2012 ?? 14:30:00 ?? 0.2 ? 0.3 ?14.8 ??H ?Test: Lymph Abs Auto ??[place] Abs Auto ??Eos Abs Auto ? Reference: [1.2-3.3] ? [0.2-1.2] ?[0.0-0.5] ? Units: K/cumm ?K/cumm ? K/cumm 08/01/2012 ?? 14:30:00 ?? 2.7 ? 0.9 ?0.0 ?Test: Baso Abs Auto ? Reference: [0.0-0.2] ? Units: K/cumm 08/01/2012 ?? 14:30:00 ?? 0.1 ?POINT OF CARE TESTS ? Chemistry ?Test: Lactate iPOC ? Reference: [0.7-2.1] ? Units: mmol/L 08/01/2012 ?? 19:59:00 ?? 0.9 ? MICROBIOLOGY - ALL TESTS ? PROCEDURE: Urine Culture ?SOURCE: Urine COLLECTED: 08/01/12 ??1745 ? BODY SITE: STARTED: 08/01/12 ??1818 FREE TEXT SOURCE: FINAL REPORT REPORTED: 08/03/12 1030 Insignificant growth based on current clinical standards. ORDER COMMENTS (1)Received in transport media. ? MICROBIOLOGY - URINE ? PROCEDURE: Urine Culture ?SOURCE: Urine COLLECTED: 08/01/12 ??1745 ? BODY SITE: STARTED: 08/01/12 ??1818 FREE TEXT SOURCE: FINAL REPORT REPORTED: 08/03/12 1030 Insignificant growth based on current clinical standards. ORDER COMMENTS (1)Received in transport media. us Historical Provider MD LAB BLOOD ORDERABLES Emily l Result Performing Organization Address [facility] de Phone Number HISTORICAL RESULTS * Blood lactic acid (08/01/2012 7:59 PM CDT) Lactic acid 0.9 0.7 - 2.1 mmol/L HISTORICAL RESULTS Blood specimen (specimen) 08/01/2012 7:59 PM CDT Janet Amor PERSONNEL SCHEDULER LAB BLOOD ORDERABLES Final Re sult Performing Organization Address [facility] de Phone Number HISTORICAL RESULTS * ABDOMINAL RADIOGRAPHY, FRONTAL (AP) (08/01/2012 6:56 PM CDT) Anatomical Region Laterality Modality N/A Radiographic Roberta ging 08/01/2012 6:56 PM CDT Narrative 08/02/2012 9:01 AM CDT MARCOS HSU M.D. BRIAN FOWLER, FINAL REPORT The radiology attending physician has personally reviewed this study, and has reviewed and/or edited this written report and agrees with it. ACC# ??Date Time ??Exam [id number] Aug 01, 2012 18:56:00 [id number] Abdomen single view AP EXAMINATION: ?Abdomen one view HISTORY: ??Nasogastric tube placement FINDINGS: ?? Portable supine abdominal radiograph excluding the pelvis is submitted with comparison made to prior study performed earlier the same day. There has been interval insertion of a nasogastric tube, the tip projects over the distal gastric antrum. A metallic structure overlies the right mid abdomen which has the appearance of an earring. Contrast is present within the renal collecting systems from prior CT scan. No dilated loops of small or large bowel. Visualized portions of the lungs are clear. IMPRESSION: ?? Nasogastric tube tip in the distal gastric antrum. Requested By: JANET AMOR [facility] Dictated By: ?? BRIAN FOWLER, ?? on Aug 01 2012 ??7:16P This document has been electronically signed by: MARCOS HSU M.D. on Aug 02 2012 ??9:01A Procedure Note Provider, MD Crys - 06/24/2016 MARCOS HSU M.D. BRIAN FOWLER, FINAL REPORT The radiology attending physician has personally reviewed this study, and has reviewed and/or edited this written report and agrees with it. ACC# Date Time Exam [id number] Aug 01, 2012 18:56:00 [id number] Abdomen single view AP EXAMINATION: Abdomen one view HISTORY: Nasogastric tube placement FINDINGS: Portable supine abdominal radiograph excluding the pelvis is submitted with comparison made to prior study performed earlier the same day. There has been interval insertion of a nasogastric tube, the tip projects over the distal gastric antrum. A metallic structure overlies the right mid abdomen which has the appearance of an earring. Contrast is present within the renal collecting systems from prior CT scan. No dilated loops of small or large bowel. Visualized portions of the lungs are clear. IMPRESSION: Nasogastric tube tip in the distal gastric antrum. Requested By: JANET AMOR [facility] Dictated By: BRIAN FOWLER, on Aug 01 2012 7:16P This document has been electronically signed by: MARCOS HSU M.D. on Aug 02 2012 9:01A Historical Provider IMG XR PROCEDURES Final R esult * Urine (aerobic) culture (08/01/2012 5:45 PM CDT) Urine (Unknown) 08/01/2012 5 :45 PM CDT 08/01/2012 6:17 PM CDT Narrative HISTORICAL RESULTS - 08/03/2012 10:31 AM CDT Insignificant growth based on current clinical standards. Historical Provider LAB MICROBIOLOGY - GENERA L ORDERABLES Final Result HISTORICAL RESULTS * (ABNORMAL) Urinalysis (08/01/2012 5:45 PM CDT) Color, ur Yellow Yellow HISTORICAL RESULTS Clarity, ur Clear Clear HISTORIC AL RESULTS Specific gravity, ur 1.020 1.003 - 1.030 HISTORICAL RESULTS pH, ur 6.0 5.0 - 8.0 HISTORICAL RESULTS Protein, ur 1+(A) Trace HISTORIC AL RESULTS Glucose, ur Negative Negative HISTORIC AL RESULTS Ketones, ur Negative Negative HISTORIC AL RESULTS Bilirubin, ur Negative Negative HISTOR ICAL RESULTS U Blood Negative Negative HISTORICAL RESULTS Urobilinogen, quant, ur <2.0 0.0 - 2.0 mg/dl HISTORICAL RESULTS Nitrites, ur Negative Negative HISTORI HERMELINDA RESULTS Leukocyte esterase, ur 2+(A) Negative HISTORICAL RESULTS Urine 08/01/2012 5:45 PM CDT Clarence JACOBS LAB BLOOD ORDERABLES Fi nal Result Performing Organization Address [facility] de Phone Number HISTORICAL RESULTS * (ABNORMAL) Urine microscopy (08/01/2012 5:45 PM CDT) RBC, ur 0 0 - 3 /hpf HISTORICA L RESULTS WBC, ur 5 0 - 5 /hpf HISTORICA L RESULTS Bacteria, ur Trace Trace HISTORI HERMELINDA RESULTS Epithelial cells, renal, ur 0 0 - 0 /hpf HISTORICAL RESULTS Epithelial cells, squamous, ur 6 /lpf HISTORICAL RESULTS Mucus, ur Moderate /hpf HISTORICAL RESULTS Hyaline casts >2(H) 0 - 0 /lpf HISTO RICAL RESULTS Urine 08/01/2012 5:45 PM CDT Clarence JACOBS LAB BLOOD ORDERABLES Fi nal Result Performing Organization Address [facility] de Phone Number HISTORICAL RESULTS * CT Abdomen Pelvis W Contrast (08/01/2012 4:34 PM CDT) Anatomical Region Laterality Modality Body N/A Computed Tomogra phy 08/01/2012 4:34 PM CDT Narrative 08/01/2012 5:27 PM CDKe DURÁN M.D. ZAIDA MANCILLA, FINAL REPORT The radiology attending physician has personally reviewed this study, and has reviewed and/or edited this written report and agrees with it. ACC# ??Date Time ??Exam [id number] Aug 01, 2012 16:34:[id number] Abd & Pelvis with cont EXAMINATION: ?CT OF THE ABDOMEN AND PELVIS with INTRAVENOUS CONTRAST HISTORY: ??Crohn's disease TECHNIQUE: Transaxial computed tomographic images of the abdomen and pelvis were obtained with intravenous contrast according to standard protocol. ??No immediate complications following contrast administration. 94 ml Optiray 350 FINDINGS: ??No comparison available. The included lungs are clear. No pleural effusion, pericardial effusion or pneumothorax in the portions the chest. There is small hiatal hernia. Liver is normal. There is mild layering high attenuation within the dependent portion the gallbladder, likely small stones or sludge. No intra or extrahepatic bullae or ductal dilatation. The pancreas is normal. The spleen is upper limits of normal in size. The adrenal glands and kidneys are normal. No hydronephrosis. No renal or ureteral calculi. The bladder is decompressed and grossly normal as is the prostate. There is trace free fluid in the pelvis. No free intraperitoneal air. The appendix is visualized in its entirety and is normal. The colon is decompressed and grossly normal. The distal ileum has a normal CT appearance. Gas filled minimally dilated loops of distal jejunum are noted in the left upper quadrant which are nonspecific. There is a relative transition point in the left midabdomen. The abdominal aorta, splenic axis, superior mesenteric artery, inferior mesenteric artery, superior mesenteric vein and splenic veins are patent. There are scattered subcentimeter lymph nodes throughout the small bowel mesentery retroperitoneum common of which pathologically enlarged by CT criteria. No suspicious osseous lytic or blastic lesion, or compression fracture. IMPRESSION: ? Mildly dilated proximal jejunum with distal decompression of ileum and colon and trace free pelvic fluid. This is of unknown functional significance and may be related to inflammation or adhesion. Requested By: CLARENCE BARRERA PA-C Dictated By: ?? ZAIDA MANCILLA, ?? on Aug 01 2012 ??5:13P This document has been electronically signed by: SHERRIE DURÁN M.D. on Aug 01 2012 ??5:26P Procedure Note Provider, MD Crys - 06/24/2016 SHERRIE DURÁN M.D. ZAIDA MANCILLA, FINAL REPORT The radiology attending physician has personally reviewed this study, and has reviewed and/or edited this written report and agrees with it. ACC# Date Time Exam [id number] Aug 01, 2012 16:34:[id number] Abd & Pelvis with cont EXAMINATION: CT OF THE ABDOMEN AND PELVIS with INTRAVENOUS CONTRAST HISTORY: Crohn's disease TECHNIQUE: Transaxial computed tomographic images of the abdomen and pelvis were obtained with intravenous contrast according to standard protocol. No immediate complications following contrast administration. 94 ml Optiray 350 FINDINGS: No comparison available. The included lungs are clear. No pleural effusion, pericardial effusion or pneumothorax in the portions the chest. There is small hiatal hernia. Liver is normal. There is mild layering high attenuation within the dependent portion the gallbladder, likely small stones or sludge. No intra or extrahepatic bullae or ductal dilatation. The pancreas is normal. The spleen is upper limits of normal in size. The adrenal glands and kidneys are normal. No hydronephrosis. No renal or ureteral calculi. The bladder is decompressed and grossly normal as is the prostate. There is trace free fluid in the pelvis. No free intraperitoneal air. The appendix is visualized in its entirety and is normal. The colon is decompressed and grossly normal. The distal ileum has a normal CT appearance. Gas filled minimally dilated loops of distal jejunum are noted in the left upper quadrant which are nonspecific. There is a relative transition point in the left midabdomen. The abdominal aorta, splenic axis, superior mesenteric artery, inferior mesenteric artery, superior mesenteric vein and splenic veins are patent. There are scattered subcentimeter lymph nodes throughout the small bowel mesentery retroperitoneum common of which pathologically enlarged by CT criteria. No suspicious osseous lytic or blastic lesion, or compression fracture. IMPRESSION: Mildly dilated proximal jejunum with distal decompression of ileum and colon and trace free pelvic fluid. This is of unknown functional significance and may be related to inflammation or adhesion. Requested By: CLARENCE BARRERA PA-C Dictated By: ZAIDA MANCILLA on Aug 01 2012 5:13P This document has been electronically signed by: SHERRIE DURÁN M.D. on Aug 01 2012 5:26P us Historical Provider MD WILSON CT PROCEDURES Final R esult * (ABNORMAL) Plasma comprehensive metabolic panel (08/01/2012 2:30 PM CDT) Pathologist [facility], pl See Comment 3.3 - 4.9 mmol/L HISTORICAL RESULTS Comment:{CRDT; Grossly Hemol yzed sample; Unable to test.} Sodium 138 135 - 145 mmol/L HISTORICAL RESULTS Chloride 100 97 - 110 mmol/L HISTORICAL RESULTS CO2 26 22 - 32 mmol/L HISTORICAL RESULTS A. gap 12 0 - 16 mmol/L HISTORICAL RESULTS Glucose 132 65 - 199 mg/dl HISTORICAL RESULTS BUN 7(L) 8 - 25 mg/dl HISTORICAL RESULTS Creatinine 0.73 0.70 - 1.30 mg/dl HISTORICAL RESULTS Calcium 9.8 8.6 - 10.3 mg/dl HISTORICAL RESULTS Protein, pl 9.0(H) 6.5 - 8.5 g/dl HISTORICAL RESULTS Comment:{Hemolyzed; result m ay be falsely elevated.} Alb 4.9 3.6 - 5.0 g/dl HISTORICAL RESULTS Bilirubin 0.3 0.3 - 1.1 mg/dl HISTORICAL RESULTS Comment:{Hemolyzed; result m ay be falsely elevated.} Alk phos 84 38 - 126 Units/L HISTORICAL RESULTS Comment:{Hemolyzed; result m ay be falsely decreased.} AST 129(H) 11 - 47 Units/L HISTORICAL RESULTS Comment:{Hemolyzed; result m ay be falsely elevated.} ALT 187(H) 7 - 53 Units/L HISTORICAL RESULTS Comment:{Hemolyzed; result m ay be falsely elevated.} Plasma 08/01/2012 2:30 PM CDT Clarence JACOBS LAB BLOOD ORDERABLES Fi nal Result HISTORICAL RESULTS * (ABNORMAL) Blood cell count (CBC) (08/01/2012 2:30 PM CDT) Pathologist [facility] WBC 18.4(H) 3.8 - 9.8 K/cumm HISTORICAL RESULTS RBC 5.22 4.50 - 5.70 M/cumm HISTORICAL RESULTS Hgb 15.1 13.8 - 17.2 g/dl HISTORICAL RESULTS Hct 45.7 40.7 - 50.3 % HISTORICAL RESULTS MCV 87.7 80.0 - 97.6 fl HISTORICAL RESULTS MCH 29.0 26.7 - 33.7 pg HISTORICAL RESULTS MCHC 33.0 32.7 - 35.5 g/dl HISTORICAL RESULTS Rdw 12.4 11.8 - 14.6 % HISTORICAL RESULTS Platelets 239 140 - 440 K/cumm HISTORICAL RESULTS MPV 8.5 6.8 - 10.4 fl HISTORICAL RESULTS Neutrophils 80.4(H) 38.7 - 74.5 % HISTORICAL RESULTS Lymphocytes 14.4(L) 20.0 - 54.3 % HISTORICAL RESULTS Monos 4.7 4.3 - 13.5 % HISTORICAL RESULTS Eosinophils 0.2 0.0 - 6.0 % HISTORICAL RESULTS Basophils 0.3 0.0 - 3.0 % HISTORICAL RESULTS Neutrophils, abs 14.8(H) 1.8 - 6.6 K/cumm HISTORICAL RESULTS Lymphocytes, abs 2.7 1.2 - 3.3 K/cumm HISTORICAL RESULTS Monocytes, absolute 0.9 0.2 - 1.2 K/cumm HISTORICAL RESULTS Eosinophils, abs 0.0 0.0 - 0.5 K/cumm HISTORICAL RESULTS Basophils, abs 0.1 0.0 - 0.2 K/cumm HISTORICAL RESULTS Blood specimen (specimen) 08/01/2012 2:30 PM CDT us Clarence JACOBS LAB BLOOD ORDERABLES Fi nal Result HISTORICAL RESULTS * XR Abdomen 2 VW (08/01/2012 9:45 AM CDT) Anatomical Region Laterality Modality Body N/A Radiographic Roberta ging 08/01/2012 9:45 AM CDT Narrative 08/01/2012 5:27 PM CDT SHERRIE DURÁN M.D. ARTI SALGUERO M.D. FINAL REPORT The radiology attending physician has personally reviewed this study, and has reviewed and/or edited this written report and agrees with it. ACC# ??Date Time ??Exam [id number] Aug 01, 2012 09:45:00 [id number] Abdmn wi Decub &/or Erect EXAMINATION: ?Abdomen, supine and erect HISTORY: ??Constipation IMPRESSION: ?? Supine and erect radiographs of the abdomen on 4 exposures is performed without comparison. The bowel gas pattern is normal. The lung bases are unremarkable. No free intraperitoneal air is seen. No abnormal calcifications overlie the kidneys or expected course of the ureters. Requested By: JANET AMOR ACNP Dictated By: ?? ARTI SALGUERO M.D. ??on Aug 01 2012 10:50A This document has been electronically signed by: SHERRIE DURÁN M.D. on Aug 01 2012 ??5:26P Procedure Note Provider, MD Crys - 06/24/2016 Frandy MINER M.D. FINAL REPORT The radiology attending physician has personally reviewed this study, and has reviewed and/or edited this written report and agrees with it. ACC# Date Time Exam [id number] Aug 01, 2012 09:45:00 [id number] Abdmn wi Decub &/or Erect EXAMINATION: Abdomen, supine and erect HISTORY: Constipation IMPRESSION: Supine and erect radiographs of the abdomen on 4 exposures is performed without comparison. The bowel gas pattern is normal. The lung bases are unremarkable. No free intraperitoneal air is seen. No abnormal calcifications overlie the kidneys or expected course of the ureters. Requested By: JANET AMOR ACNP Dictated By: ARTI SALGUERO M.D. on Aug 01 2012 10:50A This document has been electronically signed by: SHERRIE DURÁN M.D. on Aug 01 2012 5:26P us Historical Provider IMG XR PROCEDURES Final R esult * All Microbiology Report Section (08/01/2012 12:00 AM CDT) 08/01/2012 Narrative HISTORICAL RESULTS - 08/03/2012 3:08 PM CDT ? [facility] ?[facility] ?[place] [address] ? Patient Name: ??ROLAND GARCIA, BRIAN W ? Med Rec Number: [id number] ? Fin Number: ?[id number] ? Date: ?1985 ? Sex/Age: ? Male 26 years ? Admit Date: ?08/01/2012 ? Discharge Date: 08/02/2012 ? Doctor: ?Darsi, Andrew B ? Facility: ?[facility] ? Location: ?[phone] ?* Abnormal ??A Alert ??f Footnote ??^ Corrected ??L Low ??H High ?i Interp Data ??@ Ref Lab ? Chart Type:Cumulative ?* * * * MICROBIOLOGY - URINE * * * * ?PROCEDURE: Urine Culture ? SOURCE: Urine ? COLLECTED: 08/01/12 ??1745 ?BODY SITE: ? STARTED: 08/01/12 ??1818 ? FREE TEXT SOURCE: ? FINAL REPORT ? REPORTED: 08/03/12 1030 ? Insignificant growth based on current clinical standards. ? ORDER COMMENTS ? (1)Received in transport media. ? us Historical Provider LAB MICROBIOLOGY - GENERA L ORDERABLES Final Result HISTORICAL RESULTS documented in this encounter Visit Diagnoses Diagnosis Other constipation Chronic hepatitis C (CMS/HCC) (HCC) Chronic hepatitis C without mention of hepatic coma Leukocytosis Leukocytosis, unspecified Opioid type dependence, abuse (HCC) Opioid type dependence, unspecified abuse Other specified disorders of intestines Other opiates and related narcotics causing adverse effect in therapeutic use documented in this encounter
== END 2024-02-21 14:44 | disposition home or self-care (01) ==
PROVIDERS: Physician Assistant; Emergency Provider Emergency Medicine; PCP Nurse Practitioner
DX: R16.1 Splenomegaly, not elsewhere classified (principal); R11.0 Nausea; Z20.822 Contact with and (suspected) exposure to COVID-19; I10 Essential (primary) hypertension; Z86.19 Personal history of other infectious and parasitic diseases
CPT/HCPCS: 36415; 71046; 74176; 80053; 81003; 83690; 85025; 85055; 87637; 94640; 96374; 99284; J2405

== ENCOUNTER 2024-03-23 11:46 | Outpatient (CLI) | payer OTHER, SELFPAY ==
--- OUTSIDE RECORDS SUMMARY | 2024-03-23 11:49 | XMS_ITS | Clinical Summary ---
Author Organization [facility] Address [address] [place] [address] Care Team Providers Care Wheel Fitter Name Role Phone Roland Knight NP Primary Care Provider [phone] Allergies Active Allergy Reactions Criticality Noted Date [...] 3 tablets (54 mg total) by mouth director integrated before breakfast Active metoprolol XL (TOPROL-XL) 50 mg extended release tablet Take 1 tablet (50 mg total) by mouth daily 4 Active albuterol HFA (PROVENTIL HFA,VENTOLIN HFA,PROAIR HFA) 90 mcg/actuation inhalerIndicatio ns:Lower respiratory infection Inhale 2 puffs every 6 (six) hours as needed for wheezing 3 each 4 5 02/23/19 26 Active inhalational spacing device (Aerochamber MV) spacerIndication s:Lower respiratory infection Use with albuterol inhaler 1 each 5 Active amoxicillin-clav ulanate (AUGMENTIN) 875-125 mg per tabletIndication s:Lower respiratory infection Take 1 tablet by mouth 2 (two) times a day for 7 days 14 tablet 5 03/02/19 25 predniSONE (DELTASONE) 20 mg tabletIndication s:Lower respiratory infection Take 1 tablet (20 mg) by mouth 2 (two) times a day for 5 days 10 tablet 5 02/28/19 25 Hospital, Clinic, or Other Facility Administered Medication Ordered Dose Route Frequency Start Date End Date Status albuterol 2.5 mg /3 mL (0.083 %) nebulizer solution 2.5 mgIndications:Lower respiratory infection 2.5 mg nebu Once 02/24/2024 02/24/2024 End ed Active Problems No known active problems Encounters Date Type Department Care Team Description 03/16/2024 9:02 PM JOB TRAINER - 03/17/2024 3:05 AM [facility] Emergency [facility] Emergency Department [address] [place] [address] Nikkie Marmolejo MD Generalized weakness (Primary Dx); Thrombocytopenia (HCC); Family history of autoimmune disorder Discharge Disposition: Discharge to home or self care 02/24/2024 4:15 PM JOB TRAINER Office Visit [facility] at [address] [address] Ana Anne NP Lower respiratory [...] making you feel afraid or unsafe? Denies 03/16/2024 Sex and Gender Information Value Date Recorded Sex Assigned at Not on file Legal Sex Male 4:57 AM JOB TRAINER Gender Identity Not on file Sexual Orientation Not on file Obstetrics History Last Filed Vital Signs Vital Sign Reading Time Taken Comments Blood Pressure 145/93 03/17/2024 2:00 AM JOB TRAINER Pulse 62 03/17/2024 2:00 AM JOB TRAINER Temperature 37.1 ??C (98.7 ??F) 03/16/2024 8:31 PM CS T Respiratory Rate 14 03/17/2024 2:00 AM JOB TRAINER Oxygen Saturation 96% 03/17/2024 2:00 AM JOB TRAINER Inhaled Oxygen Concentration - - Weight 127 kg (280 lb) 03/16/2024 3:32 PM JOB TRAINER Height 182.9 cm (6') 03/16/2024 3:32 PM JOB TRAINER Body Mass Index 37.97 03/16/2024 3:32 PM JOB TRAINER Plan of Treatment Health Maintenance Due Date [...] Procedure Name Priority Date/Time Associated Diagnosis Comments XR CHEST PA LATERAL 2 VIEWS ED 03/16/2024 11:20 PM JOB TRAINER ECG 12-LEAD STAT 03/16/2024 11:00 PM JOB TRAINER PROTIME-INR STAT 03/16/2024 10:55 PM JOB TRAINER APTT STAT 03/16/2024 10:55 PM JOB TRAINER D-DIMER, QUANTITATIVE STAT 03/16/2024 10:55 PM JOB TRAINER PRO B-TYPE NATRIURETIC PEPTIDE STAT 03/16/2024 10:55 PM JOB TRAINER TROPONIN I HIGH-SENSITIVITY SERIES (BASELINE, 2HR, 4HR, 6HR) STAT 03/16/2024 10:55 PM JOB TRAINER URINALYSIS AND REFLEX TO MICROSCOPIC STAT 03/16/2024 10:55 PM JOB TRAINER EGFR STAT 03/16/2024 3:41 PM JOB TRAINER DIFFERENTIAL AUTO STAT 03/16/2024 3:4 1 PM JOB TRAINER LIPASE STAT 03/16/2024 3:41 PM JOB TRAINER COMPREHENSIVE METABOLIC PANEL STAT 03/16/2024 3:41 PM JOB TRAINER CBC WITH AUTO DIFFERENTIAL STAT 03/16/2024 3:41 PM JOB TRAINER HEPATITIS C ANTIBODY Routine 09/14/2022 8:25 AM CDT from Last 3 Months or Most Recently Relevant to Health Maintenance Results * XR Chest PA Lateral 2 Views (03/16/2024 11:20 PM JOB TRAINER) Anatomical Region Laterality Modality Body, Chest N/A Computed Radiogr aphy 03/16/2024 11:3 1 PM JOB TRAINER Impressions 03/17/2024 8:28 AM JOB TRAINER The current study is compared with the prior radiograph dated 05/14/2008. Lungs are clear. ??No pulmonary consolidation. ??No pleural effusion or pneumothorax. ??Normal cardiomediastinal silhouette. Dictated by: Kiana Alegre MD The radiology attending physician has personally reviewed this study, and had reviewed and/or edited this written report and agrees with it. Electronically signed by: Joseluis Amador M.D. Narrative 03/17/2024 8:28 AM JOB TRAINER EXAMINATION: 2 view chest radiograph Procedure Note Joseluis Amador MD - 03/17/2024 EXAMINATION: 2 view chest radiograph IMPRESSION: The current study is compared with the prior radiograph dated 05/14/2008. Lungs are clear. No pulmonary consolidation. No pleural effusion or pneumothorax. Normal cardiomediastinal silhouette. Dictated by: Kiana Alegre MD The radiology attending physician has personally reviewed this study, and had reviewed and/or edited this written report and agrees with it. Electronically signed by: Joseluis Amador M.D. Lupe Jackson MD IMG XR PROCEDURES F inal Result * ECG 12-LEAD (03/16/2024 11:00 PM JOB TRAINER) Narrative [facility] - 03/16/2024 11:00 PM JOB TRAINER Shannan Vieira MD ? 03/16/2024 11:01 PM ECG 12 lead Date/Time: 03/16/2024 11:00 PM Performed by: Shannan Vieira MD Authorized by: Lupe Jackson MD ?? Rate: ??ECG rate: ??55 ??ECG rate assessment: bradycardic ?? Rhythm: ??Rhythm: sinus bradycardia ?? Ectopy: ??Ectopy: none ?? QRS: ??QRS axis: ??Normal ??QRS intervals: ??Normal Conduction: ??Conduction: normal ?? ST segments: ??ST segments: ??Normal T waves: ??T waves: non-specific and inverted ?Inverted: ??III Previous ECG: ??Previous ECG: ??Unavailable Interpretation: ??Interpretation: No acute injury pattern ?? Recommended Follow-up: ??Recommended follow up: further workup in the ED ?? Comments: ?? Low risk for acs Procedure Note Shannan Vieira MD - 03/16/2024 11:00 PM CST Procedure ECG 12 lead Date/Time: 03/16/2024 11:00 PM Performed by: Shannan Vieira MD Authorized by: Lupe Jackson MD Rate: ECG rate: 55 ECG rate assessment: bradycardic Rhythm: Rhythm: sinus bradycardia Ectopy: Ectopy: none QRS: QRS axis: Normal QRS intervals: Normal Conduction: Conduction: normal ST segments: ST segments: Normal T waves: T waves: non-specific and inverted Inverted: III Previous ECG: Previous ECG: Unavailable Interpretation: Interpretation: No acute injury pattern Recommended Follow-up: Recommended follow up: further workup in the ED Comments: Low risk for acs Shannan Vieira MD 03/16/24 2304 us Lupe Jackson MD ECG ORDERABLES Fin al Result Performing Organization Address City/[facility]/ZIP Co de Phone Number [facility] * Troponin I high-sensitivity series (baseline, 2hr, 4hr, 6hr) (03/16/2024 10:55 PM JOB TRAINER) Trop I hs <4 <=35 ng/L Comment: Interpretive Data For further hscTnI resources including the diagnostic algorithm and an aid in interpretation, copy and paste this link: [email or web address]/[email or web address] Current Interpretive Data last revised 2019. Blood 03/16/2024 10:5 5 PM JOB TRAINER 03/16/2024 11:11 PM JOB TRAINER us Lupe Jackson MD LAB BLOOD ORDERABLE S Final Result [facility] Department [place] [address] * Pro B-type natriuretic peptide (03/16/2024 10:55 PM JOB TRAINER) NT-proBNP <50 <=300 pg/mL Comment: Interpretive Comments: A. Dyspnea in Acute Care Setting All Ages: ?< 300 pg/ml, acute heart failure unlikely. < 50 yrs: ?300 - 450 pg/ml, further investigation warranted. ? > 450 pg/ml, acute heart failure likely. 50 - 74 yrs: ? 300 - 900 pg/ml, further investigation warranted. ? > 900 pg/ml, acute heart failure likely . > or = 75 yrs: ? 450 - 1800 pg/ml, further investigation warranted. ? > 1800 pg/ml, acute heart failure likely. B. Non-acute Setting < 75 yrs ? < 125 pg/ml, rules out heart failure. ? > or = 125 pg/ml, further investigation warranted. > or = 75 yrs ?< 450 pg/ml, rules out heart failure. ? > or = 450 pg/ml, further investigation warranted. - Knowledge of each individual patient's NT-proBNP range may be more useful than using similar cut-points for every patient. Please note that marked elevations in NT-proBNP levels may be observed in state other than Left Ventricular Congestive Failure, including: acute coronary syndromes, right heart strain/failure (including pulmonary embolism and cor pulmonale), critical illness, renal failure, as well as advanced age. - References: 1. Long GOODRICH et.al. Eur Heart J. 2006:27:330-337. 2. Messi RW, Samreen AM. J. AM Silvia Cardiol: Cardiovasc Imag. 2009;2: 216- 225. Interpretive Data Last Revised Date: 2017. Blood 03/16/2024 10:5 5 PM JOB TRAINER 03/16/2024 11:11 PM JOB TRAINER Lupe Jackson MD LAB BLOOD ORDERABLE S Final Result Performing Organization Address [facility] Co de Phone Number [facility] [place] [address] * Urinalysis reflex to microscopic (03/16/2024 10:55 PM JOB TRAINER) Color, ur Straw Yellow Clarity, ur Clear Clear [facility] Specific gravity, ur 1.016 1.003 - 1.030 [facility] pH, urine 6.0 [facility] Comment: Interpretive Data ? Urine pH is affected by diet, medications, systemic acid-base disturbances, and renal tubular function. ??pH may affect urinary stone formation. ??For example, urine pH below 6.0 may help reduce the tendency for calcium phosphate stones and pH greater than 6.0 may reduce the tendency for uric acid stone formation. Source: [facility] Current Interpretive Data was last revised on 2017 Protein, ur ql Negative Negative [facility] Glucose, ur ql Negative Negative [facility] Ketones, ur Negative Negative [facility] Bilirubin, ur Negative Negative [facility] Blood, ur Negative Negative [facility] Urobilinogen, ur <2.0 <2.0 mg/dL [facility] Nitrite, ur Negative Negative [facility] Leukocyte esterase, ur Negative Negative [facility] UA reflex comment Reflex conditions for microscopic UA not met. [facility] Urine 03/16/2024 10:5 5 PM JOB TRAINER 03/16/2024 11:04 PM JOB TRAINER us Nikkie Marmolejo MD LAB URINE ORDERABLES Fin al Result Performing Organization Address City/[facility]/ZIP Co de Phone Number [facility] [place] [address] * aPTT (03/16/2024 10:55 PM JOB TRAINER) aPTT 34 28 - 38 sec Comment: Interpretive Data Heparin therapeutic range: 66.0 - 100.0 seconds. Range based on correlation with therapeutic heparin activity range of 0.3 - 0.7 Units/mL. Current interpretive data was last revised on 2022. Blood 03/16/2024 10:5 5 PM JOB TRAINER 03/17/2024 12:29 AM JOB TRAINER Result [facility] Nikkie Marmolejo MD LAB BLOOD ORDERABLES Fin al Result Performing Organization Address [facility] de Phone Number [facility] [place] [address] * Protime-INR (03/16/2024 10:55 PM JOB TRAINER) PT 12.3 9.7 - 13.0 sec INR 1.14 0.90 - 1.20 [facility] Comment: Interpretive data Oral anticoagulant therapeutic ranges: Venous thromboembolism prophylaxis or treatment: 2.0-3.0 CARDIOLOGY Standard range: 2.0-3.0 High-intensity range: 2.5-3.5 Refer to indication-specific guidelines for appropriate target ranges for prosthetic heart valve replacement. Current interpretive data was last revised on 2019. Blood 03/16/2024 10:5 5 PM JOB TRAINER 03/17/2024 12:29 AM JOB TRAINER Nikkie Marmolejo MD LAB BLOOD ORDERABLES Fin al Result Performing Organization Address [facility] [place] [address] * D-dimer, quantitative (03/16/2024 10:55 PM JOB TRAINER) D-Dimer <215 <=499 ng/mL FEU Comment: Interpretive data FDA approved the D-dimer, in conjunction with a low or moderate pretest probability score, to exclude venous thromboembolic events (VTE) (PE and DVT) in outpatients when the D-dimer result is < 500 ng/ml FEU. ?? Evidence supports using an age-adjusted D-dimer cut-off for outpatients older than 50 (age x 10) to improve specificity without sacrificing sensitivity. Example: age 68, VTE cut-off 680 ng/ml FEU. References; Jemal ARIAS et al. Brit Med J. 2013;346:f2492. Sherice et al. Annals Int Med. 2015;163:701-11. Current interpretive data was last revised on 2019. Blood 03/16/2024 10:5 5 PM JOB TRAINER 03/17/2024 12:29 AM JOB TRAINER us Lupe Jackson MD LAB BLOOD ORDERABLE S Final Result [facility] [place] [address] * eGFR (03/16/2024 3:41 PM JOB TRAINER) eGFR >90 >=60 mL/min/1. 73 m2 Comment: Interpretive Data Reference Interval Normal ?>/= [...] interpretive data was last reviewed 2020. Blood 03/16/2024 3:41 PM JOB TRAINER 03/16/2024 4:17 PM JOB TRAINER us Nikkie Marmolejo MD LAB BLOOD ORDERABLES Fin al Result [facility] [place] [address] * (ABNORMAL) Differential, auto (03/16/2024 3:41 PM JOB TRAINER) Neutrophil abs 4.1 1.5 - 6.5 K/cumm Imm gran abs 0.0 0.0 - 0.1 K/cumm [facility] Lymphocyte abs 3.7(H) 0.8 - 3.3 K/cumm [facility] Monocyte abs 0.5 0.2 - 0.8 K/cumm [facility] Eosinophil abs 0.1 0.0 - 0.5 K/cumm [facility] Basophil abs 0.0 0.0 - 0.1 K/cumm [facility] Neutrophil pct 48.7 % [facility] Comment: Interpretive Data Percent cell count reference ranges are not reported, since discordance with absolute values may lead to misinterpretation of CBC data. Current Interpretive Data was last revised on 2017. Imm gran pct 0.2 % [facility] Comment: Interpretive Data Percent cell count reference ranges are not reported, since discordance with absolute values may lead to misinterpretation of CBC data. Current Interpretive Data was last revised on 2017. Lymphocyte pct 43.4 % [facility] Comment: Interpretive Data Percent cell count reference ranges are not reported, since discordance with absolute values may lead to misinterpretation of CBC data. Current Interpretive Data was last revised on 2017. Monocyte pct 5.9 % [facility] Comment: Interpretive Data Percent cell count reference ranges are not reported, since discordance with absolute values may lead to misinterpretation of CBC data. Current Interpretive Data was last revised on 2017. Eosinophil pct 1.4 % [facility] Comment: Interpretive Data Percent cell count reference ranges are not reported, since discordance with absolute values may lead to misinterpretation of CBC data. Current Interpretive Data was last revised on 2017. Basophil pct 0.4 % [facility] Comment: Interpretive Data Percent cell count reference ranges are not reported, since discordance with absolute values may lead to misinterpretation of CBC data. Current Interpretive Data was last revised on 2017. Blood 03/16/2024 3:41 PM JOB TRAINER 03/16/2024 4:17 PM JOB TRAINER Nikkie Marmolejo MD LAB BLOOD ORDERABLES Fin al Result Performing Organization Address City/[facility]/ZIP Co de Phone Number [facility] [place] [address] * (ABNORMAL) CBC with auto differential (03/16/2024 3:41 PM JOB TRAINER) WBC 8.4 3.8 - 9.9 K/cumm Hgb 14.3 13.0 - 17.5 g/dL [facility] Hct 43.6 38.9 - 50.3 % [facility] Plt 114(L) 150 - 400 K/cumm [facility] MPV 12.3 9.1 - 12.3 fL [facility] RBC 5.18 4.30 - 5.80 M/cumm [facility] MCV 84.2 81.3 - 96.4 fL [facility] MCH 27.6 27.1 - 33.3 pg [facility] MCHC 32.8 32.3 - 35.7 g/dL [facility] RDW CV 12.6 11.1 - 14.9 % [facility] RDW SD 38.5 35.7 - 48.1 fL [facility] NRBC abs 0.00 0.00 - 0.01 K/cumm [facility] Blood (Blood, Venous) 03/16/2024 3:41 PM JOB TRAINER 03/16/2024 4:17 PM JOB TRAINER Nikkie Marmolejo MD LAB BLOOD ORDERABLES Fin al Result Performing Organization Address City/[facility]/ZIP Co de Phone Number [facility] [place] [address] * Lipase (03/16/2024 3:41 PM JOB TRAINER) Pathologist [facility] Lipase 12 10 - 99 Units/L Blood (Blood, Venous) 03/16/2024 3:41 PM JOB TRAINER 03/16/2024 4:17 PM JOB TRAINER us Nikkie Marmolejo MD LAB BLOOD ORDERABLES Fin al Result [facility] [place] [address] * Comprehensive metabolic panel (03/16/2024 3:41 PM JOB TRAINER) Pathologist [facility] Sodium 140 135 - 145 mmol/L Potassium, pl 4.0 3.3 - 4.9 mmol/L [facility] Chloride 104 97 - 110 mmol/L [facility] CO2 28 22 - 32 mmol/L [facility] Anion gap 8 2 - 15 mmol/L [facility] BUN 7 6 - 25 mg/dL [facility] Creatinine 1.08 0.80 - 1.30 mg/dL [facility] Glucose 100 70 - 199 mg/dL [facility] Comment: Interpretive Data Fasting glucose [...] interpretive data was last revised 2022. Calcium 9.1 8.5 - 10.3 mg/dL [facility] Bilirubin, total 0.5 0.1 - 1.2 mg/dL [facility] Protein, pl 7.8 6.5 - 8.5 g/dL [facility] Albumin 4.3 3.5 - 5.0 g/dL [facility] Alk phos 62 40 - 130 Units/L [facility] ALT 30 7 - 55 Units/L [facility] AST 37 10 - 50 Units/L [facility] Blood 03/16/2024 3:41 PM JOB TRAINER 03/16/2024 4:17 PM JOB TRAINER us Nikkie Marmolejo MD LAB BLOOD ORDERABLES Fin al Result Performing Organization Address City/[facility] Co de Phone Number [facility] [place] [address] * (ABNORMAL) Hepatitis C antibody (09/14/2022 8:25 [...] ORDER THOMAS Final Result Performing Organization Address City/[facility] Co de Phone Number [facility] [address] [facility] Department [place] [address] from Last 3 Months or Most Recently Relevant to Health Maintenance Insurance [facility] ALLEGIANCE [employer] Care Teams Wheel Fitter Relationship Specialty Start Date End Date Roland Knight NP [address] [place] [address] [place] [address] PCP - General Pain Management 02/24/24
--- OUTSIDE RECORDS SUMMARY | 2024-03-23 11:50 | XMS_ITS | Referral Summary ---
Author Organization [facility] Address [address] [place] [address] Care Team Providers Care Rock Drill Operator Name Role Phone Roland Knight NP Primary Care Provider [phone]- [phone] Encounters Date Type Department Care Team Description 03/16/2024 9:02 PM GEOLOGY INSTRUCTOR - 03/17/2024 3:05 AM GEOLOGY INSTRUCTOR Emergency [facility] Emergency Department [address] [place] [address] Nikkie Marmolejo MD Generalized weakness (Primary Dx); Thrombocytopenia (HCC); Family history of autoimmune disorder Discharge Disposition: Discharge to home or self care 02/24/2024 4:15 PM GEOLOGY INSTRUCTOR Office Visit [facility] at [address] [place] [id number] Ana Anne NP Lower respiratory infection [...] 3 tablets (54 mg total) by mouth day care home mother before breakfast Active metoprolol XL (TOPROL-XL) 50 [...] on file Legal Sex Male 4:57 AM GEOLOGY INSTRUCTOR Gender Identity Not on file Sexual Orientation Not on file Last Filed Vital Signs Vital Sign Reading Time Taken Comments Blood Pressure 145/93 03/17/2024 2:00 AM GEOLOGY INSTRUCTOR Pulse 62 03/17/2024 2:00 AM GEOLOGY INSTRUCTOR Temperature 37.1 ??C (98.7 ??F) 03/16/2024 8:31 PM CS T Respiratory Rate 14 03/17/2024 2:00 AM GEOLOGY INSTRUCTOR Oxygen Saturation 96% 03/17/2024 2:00 AM GEOLOGY INSTRUCTOR Inhaled Oxygen Concentration - - Weight 127 kg (280 lb) 03/16/2024 3:32 PM GEOLOGY INSTRUCTOR Height 182.9 cm (6') 03/16/2024 3:32 PM GEOLOGY INSTRUCTOR Body Mass Index 37.97 03/16/2024 3:32 PM GEOLOGY INSTRUCTOR Plan of Treatment Not on file Procedures Procedure Name Priority Date/Time Associated Diagnosis Comments XR CHEST PA LATERAL 2 VIEWS ED 03/16/2024 11:20 PM GEOLOGY INSTRUCTOR ECG 12-LEAD STAT 03/16/2024 11:00 PM GEOLOGY INSTRUCTOR PROTIME-INR STAT 03/16/2024 10:55 PM GEOLOGY INSTRUCTOR APTT STAT 03/16/2024 10:55 PM GEOLOGY INSTRUCTOR D-DIMER, QUANTITATIVE STAT 03/16/2024 10:55 PM GEOLOGY INSTRUCTOR PRO B-TYPE NATRIURETIC PEPTIDE STAT 03/16/2024 10:55 PM GEOLOGY INSTRUCTOR TROPONIN I HIGH-SENSITIVITY SERIES (BASELINE, 2HR, 4HR, 6HR) STAT 03/16/2024 10:55 PM GEOLOGY INSTRUCTOR URINALYSIS AND REFLEX TO MICROSCOPIC STAT 03/16/2024 10:55 PM GEOLOGY INSTRUCTOR EGFR STAT 03/16/2024 3:41 PM GEOLOGY INSTRUCTOR DIFFERENTIAL AUTO STAT 03/16/2024 3:4 1 PM GEOLOGY INSTRUCTOR LIPASE STAT 03/16/2024 3:41 PM GEOLOGY INSTRUCTOR COMPREHENSIVE METABOLIC PANEL STAT 03/16/2024 3:41 PM GEOLOGY INSTRUCTOR CBC WITH AUTO DIFFERENTIAL STAT 03/16/2024 3:41 PM GEOLOGY INSTRUCTOR HEPATITIS C ANTIBODY Routine 09/14/2022 8:25 AM CDT from Last 3 Months or Most Recently Relevant to Health Maintenance Results * XR Chest PA Lateral 2 Views (03/16/2024 11:20 PM GEOLOGY INSTRUCTOR) Anatomical Region Laterality Modality Body, Chest N/A Computed Radiogr aphy 03/16/2024 11:3 1 PM GEOLOGY INSTRUCTOR Impressions 03/17/2024 8:28 AM GEOLOGY INSTRUCTOR The current study is compared with the prior radiograph dated 05/14/2008. Lungs are clear. ??No pulmonary consolidation. ??No pleural effusion or pneumothorax. ??Normal cardiomediastinal silhouette. Dictated by: Kiana Alegre MD The radiology attending physician has personally reviewed this study, and had reviewed and/or edited this written report and agrees with it. Electronically signed by: Joseluis Amador M.D. Narrative 03/17/2024 8:28 AM GEOLOGY INSTRUCTOR EXAMINATION: 2 view chest radiograph Procedure Note [...] it. Electronically signed by: Joseluis Amador M.D. us Lupe Jackson MD IMG XR PROCEDURES F inal Result * ECG 12-LEAD (03/16/2024 11:00 PM GEOLOGY INSTRUCTOR) Narrative MUSE [facility] - 03/16/2024 11:00 PM GEOLOGY INSTRUCTOR Shannan Vieira MD ? 03/16/2024 11:01 PM [...] risk for acs Shannan Vieira MD 03/16/24 [id number] us Lupe Jackson MD ECG ORDERABLES Fin al Result [facility] * Troponin I high-sensitivity series (baseline, 2hr, 4hr, 6hr) (03/16/2024 10:55 PM GEOLOGY INSTRUCTOR) Trop I hs <4 <=35 ng/L Comment: Interpretive Data For further hscTnI resources including the diagnostic algorithm and an aid in interpretation, copy and paste this link: [email or web address].testcatalog.org/show/[email or web address] Current Interpretive Data last revised 2019. Blood 03/16/2024 10:5 5 PM GEOLOGY INSTRUCTOR 03/16/2024 11:11 PM GEOLOGY INSTRUCTOR us Lupe Jackson MD LAB BLOOD ORDERABLE S Final Result Performing Organization Address [facility] de Phone Number [facility] Department [place] [address] * Pro B-type natriuretic peptide (03/16/2024 10:55 PM GEOLOGY INSTRUCTOR) NT-proBNP <50 <=300 pg/mL Comment: Interpretive Comments: [...] Heart J. 2006:27:330-337. 2. Messi RW, Samreen ACHARYA. J. AM Silvia Cardiol: Cardiovasc Imag. 2009;2: 216- 225. Interpretive Data Last Revised Date: 2017. Blood 03/16/2024 10:5 5 PM GEOLOGY INSTRUCTOR 03/16/2024 11:11 PM GEOLOGY INSTRUCTOR Lupe Jackson MD LAB BLOOD ORDERABLE S Final Result [facility] [place] [address] * Urinalysis reflex to microscopic (03/16/2024 10:55 PM GEOLOGY INSTRUCTOR) Color, ur Straw Yellow Clarity, ur Clear Clear [facility] Specific gravity, ur 1.016 1.003 - 1.030 [facility] pH, urine 6.0 [facility] Comment: Interpretive Data ? Urine pH is affected by diet, medications, systemic acid-base disturbances, and renal tubular function. ??pH may affect urinary stone formation. ??For example, urine pH below 6.0 may help reduce the tendency for calcium phosphate stones and pH greater than 6.0 may reduce the tendency for uric acid stone formation. Source: [facility] Current Interpretive Data was last revised on 2017 Protein, ur ql Negative Negative [facility] Glucose, ur ql Negative Negative [facility] Ketones, ur Negative Negative [facility] Bilirubin, ur Negative Negative [facility] Blood, ur Negative Negative [facility] Urobilinogen, ur <2.0 <2.0 mg/dL [facility] Nitrite, ur Negative Negative [facility] Leukocyte esterase, ur Negative Negative [facility] UA reflex comment Reflex conditions for microscopic UA not met. [facility] Urine 03/16/2024 10:5 5 PM GEOLOGY INSTRUCTOR 03/16/2024 11:04 PM GEOLOGY INSTRUCTOR Nikkie Marmolejo MD LAB URINE ORDERABLES Fin al Result Performing Organization Address [facility] de Phone Number [facility] [place] [address] * aPTT (03/16/2024 10:55 PM GEOLOGY INSTRUCTOR) aPTT 34 28 - 38 sec Comment: Interpretive Data Heparin therapeutic range: 66.0 - 100.0 seconds. Range based on correlation with therapeutic heparin activity range of 0.3 - 0.7 Units/mL. Current interpretive data was last revised on 2022. Blood 03/16/2024 10:5 5 PM GEOLOGY INSTRUCTOR 03/17/2024 12:29 AM GEOLOGY INSTRUCTOR Nikkie Marmolejo MD LAB BLOOD ORDERABLES Fin al Result Performing Organization Address [facility] Co de Phone Number [facility] [address] * Protime-INR (03/16/2024 10:55 PM GEOLOGY INSTRUCTOR) PT 12.3 9.7 - 13.0 sec INR 1.14 0.90 - 1.20 [facility] Comment: Interpretive data Oral anticoagulant therapeutic ranges: Venous thromboembolism prophylaxis or treatment: 2.0-3.0 CARDIOLOGY Standard range: 2.0-3.0 High-intensity range: 2.5-3.5 Refer to indication-specific guidelines for appropriate target ranges for prosthetic heart valve replacement. Current interpretive data was last revised on 2019. Blood 03/16/2024 10:5 5 PM GEOLOGY INSTRUCTOR 03/17/2024 12:29 AM GEOLOGY INSTRUCTOR us Nikkie Marmolejo MD LAB BLOOD ORDERABLES Fin al Result Performing Organization Address [facility] Co de Phone Number [facility] [place] [address] * D-dimer, quantitative (03/16/2024 10:55 PM GEOLOGY INSTRUCTOR) D-Dimer <215 <=499 ng/mL FEU Comment: Interpretive [...] 68, VTE cut-off 680 ng/ml FEU. References; Schouten HT et al. Brit Med J. 2013;346:f2492. Sherice et al. Annals Int Med. 2015;163:701-11. Current interpretive data was last revised on 2019. Blood 03/16/2024 10:5 5 PM GEOLOGY INSTRUCTOR 03/17/2024 12:29 AM GEOLOGY INSTRUCTOR us Lupe Jackson MD LAB BLOOD ORDERABLE S Final Result Performing Organization Address City/[facility] Co de Phone Number [facility] [place] [address] * eGFR (03/16/2024 3:41 PM GEOLOGY INSTRUCTOR) Pathologist [facility] eGFR >90 >=60 mL/min/1. 73 m2 Comment: [...] last reviewed 2020. Blood 03/16/2024 3:41 PM GEOLOGY INSTRUCTOR 03/16/2024 4:17 PM GEOLOGY INSTRUCTOR us Nikkie Marmolejo MD LAB BLOOD ORDERABLES Fin al Result [facility] Department of Laboratories [place], [place] [id number] * (ABNORMAL) Differential, auto (03/16/2024 3:41 PM GEOLOGY INSTRUCTOR) Pathologist [facility] Neutrophil abs 4.1 1.5 - 6.5 K/cumm Imm gran abs 0.0 0.0 - 0.1 K/cumm [facility] Lymphocyte abs 3.7(H) 0.8 - 3.3 K/cumm [facility] Monocyte abs 0.5 0.2 - 0.8 K/cumm [facility] Eosinophil abs 0.1 0.0 - 0.5 K/cumm [facility] Basophil abs 0.0 0.0 - 0.1 K/cumm [facility] Neutrophil pct 48.7 % [facility] Comment: Interpretive Data Percent cell count reference ranges are not reported, since discordance with absolute values may lead to misinterpretation of CBC data. Current Interpretive Data was last revised on 2017. Imm gran pct 0.2 % [facility] Comment: Interpretive Data Percent cell count reference ranges are not reported, since discordance with absolute values may lead to misinterpretation of CBC data. Current Interpretive Data was last revised on 2017. Lymphocyte pct 43.4 % [facility] Comment: Interpretive Data Percent cell count reference ranges are not reported, since discordance with absolute values may lead to misinterpretation of CBC data. Current Interpretive Data was last revised on 2017. Monocyte pct 5.9 % [facility] Comment: Interpretive Data Percent cell count reference ranges are not reported, since discordance with absolute values may lead to misinterpretation of CBC data. Current Interpretive Data was last revised on 2017. Eosinophil pct 1.4 % [facility] Comment: Interpretive Data Percent cell count reference ranges are not reported, since discordance with absolute values may lead to misinterpretation of CBC data. Current Interpretive Data was last revised on 2017. Basophil pct 0.4 % [facility] Comment: Interpretive Data Percent cell count reference ranges are not reported, since discordance with absolute values may lead to misinterpretation of CBC data. Current Interpretive Data was last revised on 2017. Blood 03/16/2024 3:41 PM GEOLOGY INSTRUCTOR 03/16/2024 4:17 PM GEOLOGY INSTRUCTOR us Nikkie Marmolejo MD LAB BLOOD ORDERABLES Fin al Result [facility] Department [place] [address] * (ABNORMAL) CBC with auto differential (03/16/2024 3:41 PM GEOLOGY INSTRUCTOR) [facility] WBC 8.4 3.8 - 9.9 K/cumm Hgb 14.3 13.0 - 17.5 g/dL [facility] Hct 43.6 38.9 - 50.3 % [facility] Plt 114(L) 150 - 400 K/cumm [facility] MPV 12.3 9.1 - 12.3 fL [facility] RBC 5.18 4.30 - 5.80 M/cumm [facility] MCV 84.2 81.3 - 96.4 fL [facility] MCH 27.6 27.1 - 33.3 pg [facility] MCHC 32.8 32.3 - 35.7 g/dL [facility] RDW CV 12.6 11.1 - 14.9 % [facility] RDW SD 38.5 35.7 - 48.1 fL [facility] NRBC abs 0.00 0.00 - 0.01 K/cumm [facility] Blood (Blood, Venous) 03/16/2024 3:41 PM GEOLOGY INSTRUCTOR 03/16/2024 4:17 PM GEOLOGY INSTRUCTOR us Nikkie Marmolejo MD LAB BLOOD ORDERABLES Fin al Result Performing Organization Address City/[facility]/ZIP Co de Phone Number [facility] [place] [address] * Lipase (03/16/2024 3:41 PM GEOLOGY INSTRUCTOR) [facility] Lipase 12 10 - 99 Units/L Blood (Blood, Venous) 03/16/2024 3:41 PM GEOLOGY INSTRUCTOR 03/16/2024 4:17 PM GEOLOGY INSTRUCTOR us Nikkie Marmolejo MD LAB BLOOD ORDERABLES Fin al Result [facility] [place] [address] * Comprehensive metabolic panel (03/16/2024 3:41 PM GEOLOGY INSTRUCTOR) Pathologist [facility] Sodium 140 135 - 145 mmol/L Potassium, pl 4.0 3.3 - 4.9 mmol/L [facility] Chloride 104 97 - 110 mmol/L [facility] CO2 28 22 - 32 mmol/L [facility] Anion gap 8 2 - 15 mmol/L [facility] BUN 7 6 - 25 mg/dL [facility] Creatinine 1.08 0.80 - 1.30 mg/dL [facility] Glucose 100 70 - 199 mg/dL [facility] Comment: Interpretive Data Fasting glucose >/= [...] 2022. Calcium 9.1 8.5 - 10.3 mg/dL [facility] Bilirubin, total 0.5 0.1 - 1.2 mg/dL [facility] Protein, pl 7.8 6.5 - 8.5 g/dL [facility] Albumin 4.3 3.5 - 5.0 g/dL [facility] Alk phos 62 40 - 130 Units/L [facility] ALT 30 7 - 55 Units/L [facility] AST 37 10 - 50 Units/L [facility] Blood 03/16/2024 3:41 PM GEOLOGY INSTRUCTOR 03/16/2024 4:17 PM GEOLOGY INSTRUCTOR us Nikkie Marmolejo MD LAB BLOOD ORDERABLES Fin al Result [facility] [place] [address] * (ABNORMAL) Hepatitis C antibody (09/14/2022 8:25 [...] ORDER THOMAS Final Result Performing Organization Address City/State/[facility] Co de Phone Number [facility] [address] [facility] Department of Laboratories [place], [place] [phone] from Last 3 Months or Most Recently Relevant to Health Maintenance Insurance [employer] Care Teams Rock Drill Operator Relationship Specialty Start Date End Date oRland Knight NP [address] [place] [id number] PCP - General Pain Management 02/24/24
--- OUTSIDE RECORDS SUMMARY | 2024-03-23 11:50 | XMS_ITS | Clinical Summary ---
Author Organization [facility] Address [address] [facility] [address] [facility] [place] [address] Care Team Providers Care Health Inspector Name Role Phone Unavailable Primary Care Provider Unavailabl e Source Comments [facility],non-owned Affiliates and Associated Physician Practices is amultiple site organization consisting of ambulatory clinics and hospital sitesin [place], [place], [place] and [place]. This disclosure is being madepursuant to the Care Everywhere program and may not contain all information available regarding this patient. Last updated 17.[facility] Allergies Active Allergy Reactions Criticality Noted Date [...] of 3 - 19+ 3-dose series) 08/23/2006 COVID-19 VACCINE ( - 2023-2 5 season) 2023 INFLUENZA VACCINE (#1) 2023 DEPRESSION SCREENING 02/22/2024 ZOSTER VACCINE (1 of 2) 08/23/2037 HEPATITIS C SCREENING Completed 06/06/2019 HIB VACCINE Aged Out No longer eligi ble based on patient's age to complete this topic HPV VACCINE Aged Out No longer eligi ble based on patient's age to complete this topic MENINGOCOCCAL (Group B) VACCINE Aged Out No longer eligible based on [...]
--- OUTSIDE RECORDS SUMMARY | 2024-03-23 11:50 | XMS_ITS | Patient Health Summary ---
Author Organization [facility] [employer] Address [address] [place] [address] Care Team Providers Care Automatic Outsole Cutter Name Role Phone Unavailable Primary Care Provider Unavailabl e Note from [facility],non-owned Affiliates and Associated Physician Practices is amultiple site organization consisting of ambulatory clinics and hospital sitesin [place], [place], [place] and [place]. This disclosure is being madepursuant to the Care Everywhere program and may not contain all information available regarding this patient. Last updated 17.[facility] Allergies * Contrast-Iodinated Agents For Ct/Other(Anaphylaxis) -High [...] REFLEX 1HOUR (07/31/2023 11:14 PM CDT) Pathologist [facility] Troponin I High Sensitive <3 <=35 ng/L 08/01/2023 12:02 AM CDT [facility] Delta Troponin I HS 08/01/2023 12:02 AM CDT [facility] Comment:Result exceeds linea rity range. A delta value is unable to be calculated. Blood BLOOD SPECIMEN / Unknown Venipuncture / Unknown 07/31/2023 11:14 PM CDT 07/31/2023 11:19 PM CDT Damir Tesfaye MD LAB - CHEMISTRY CEE BENDER [address] [address], [facility] [phone] * TROPONIN-I HIGH SENSITIVE BASELINE + 1HR (07/31/2023 9:49 PM CDT) [facility] Troponin I High Sensitive <3 <=35 ng/L 07/31/2023 10:27 PM T [facility] Blood BLOOD SPECIMEN / Unknown Venipuncture / Unknown 07/31/2023 9:49 PM CDT 07/31/2023 9:54 PM CDT Damir Tesfaye MD LAB - CHEMISTRY CEE BENDER [address] [address], [facility] [phone] * (ABNORMAL) CBC W AUTO DIFFERENTIAL (07/31/2023 9:49 PM CDT) Only the most recent of2 resultswithin the time period is included. [facility] WBC 9.1 4.0 - 10.7 x10E9/L 07/31/2023 10:05 PM [facility] RBC Count 5.19 4.30 - 5.80 x10E12/L 07/31/2023 10:05 PM [facility] Hemoglobin 14.9 13.3 - 17.5 g/dL 07/31/2023 10:05 PM [facility] Hematocrit 43.7 38.7 - 51.1 % 07/31/2023 10:05 PM [facility] MCV 84.2 80.0 - 98.0 fL 07/31/2023 10:05 PM [facility] MCH 28.7 26.7 - 33.6 pg 07/31/2023 10:05 PM [facility] MCHC 34.1 31.7 - 36.3 g/dL 07/31/2023 10:05 PM [facility] RDW-CV 12.7 11.3 - 14.8 % 07/31/2023 10:05 PM [facility] Platelet Count 145(L) 150 - 420 x10E9/L 07/31/2023 10:05 PM [facility] MPV 10.9 7.8 - 11.4 fL 07/31/2023 10:05 PM [facility] Neutrophil % 69.2 41.0 - 74.0 % 07/31/2023 10:05 PM [facility] Lymphocyte % 25.8 17.0 - 47.0 % 07/31/2023 10:05 PM [facility] Monocyte % 4.4 3.0 - 11.0 % 07/31/2023 10:05 PM [facility] Eosinophil % 0.2 0.0 - 7.0 % 07/31/2023 10:05 PM [facility] Basophil % 0.2 0.0 - 1.6 % 07/31/2023 10:05 PM [facility] Immature Granulocytes % 0.2 0.0 - 1.0 % 07/31/2023 10:05 PM [facility] Neutrophil Absolute 6.29 1.60 - 7.50 x10E9/L 07/31/2023 10:05 PM [facility] Lymphocyte Absolute 2.35 1.00 - 4.40 x10E9/L 07/31/2023 10:05 PM [facility] Monocyte Absolute 0.40 0.15 - 1.00 x10E9/L 07/31/2023 10:05 PM [facility] Eosinophil Absolute 0.02 0.00 - 0.60 x10E9/L 07/31/2023 10:05 PM CDT [facility] Basophil Absolute 0.02 0.00 - 0.13 x10E9/L 07/31/2023 10:05 PM CDT [facility] Blood BLOOD SPECIMEN / Unknown Venipuncture / Unknown 07/31/2023 9:49 PM CDT 07/31/2023 9:54 PM CDT Damir Tesfaye MD LAB - HEMATOLOGY ORD ERABLES Performing Organization Address City/State/[facility] Co de Phone Number [facility] [address] [place] [address], [facility] [phone] * B-TYPE NATRIURETIC PEPTIDE (07/31/2023 9:49 PM CDT) Pathologist [facility] BNP 25 <100 pg/mL 07/31/2023 10:25 PM CDT [facility] Comment: A decision threshold of 100 [...] - CHEMISTRY CEE BENDER Performing Organization Address [facility]/State/ZIP Co de Phone Number [facility] [address] [place] [address], [facility] [phone] * (ABNORMAL) COMPREHENSIVE METABOLIC PANEL (07/31/2023 9:49 PM CDT) Only the most recent of2 resultswithin the time period is included. BUN 8 7 - 26 mg/dL 07/31/2023 10:24 PM [facility] Creatinine 0.92 0.71 - 1.16 mg/dL 07/31/2023 10:24 PM [facility] Sodium 139 136 - 145 mmol/L 07/31/2023 10:24 PM [facility] Potassium 3.7 3.5 - 4.5 mmol/L 07/31/2023 10:24 PM [facility] Chloride 104 98 - 107 mmol/L 07/31/2023 10:24 PM [facility] CO2 25 22 - 29 mmol/L 07/31/2023 10:24 PM [facility] Glucose 90 70 - 115 mg/dL 07/31/2023 10:24 PM [facility] Calcium 9.1 8.4 - 10.2 mg/dL 07/31/2023 10:24 PM [facility] Protein Total 8.2 6.0 - 8.3 g/dL 07/31/2023 10:24 PM [facility] Albumin 4.0 3.4 - 5.0 g/dL 07/31/2023 10:24 PM [facility] Bilirubin Total 0.8 0.2 - 1.2 mg/dL 07/31/2023 10:24 PM [facility] Alkaline Phosphatase 61 40 - 150 U/L 07/31/2023 10:24 PM [facility] ALT 105(H) 5 - 55 U/L 07/31/2023 10:24 PM [facility] AST 63(H) 5 - 34 U/L 07/31/2023 10:24 PM [facility] Anion Gap 10 6 - 16 07/31/2023 10:24 PM [facility] BUN/Creatinine Ratio 9 7 - 23 07/31/2023 10:24 PM [facility] Osmolality Calculated 286 275 - 295 mOsm/kg 07/31/2023 10:24 PM [facility] Albumin/Globulin Ratio 1.0(L) 1.1 - 2.3 07/31/2023 10:24 PM [facility] eGFR by CKD-EPI >90 >=90 mL/min/1.7 3 m2 07/31/2023 10:24 PM [facility] Blood BLOOD SPECIMEN / Unknown Venipuncture / Unknown 07/31/2023 9:49 PM CDT 07/31/2023 9:54 PM CDT Damir Tesfaye MD LAB - CHEMISTRY CEE BENDER [facility] Organization Address City/State/ZIP Co de Phone Number [facility] [address] [place] [address], [facility] [phone] * XR CHEST 2VW (07/31/2023 6:48 PM CDT) Only the most recent of2 resultswithin the time period is included. Anatomical Region Laterality Modality Chest Radiographic Roberta ging 07/31/2023 6:52 PM CDT Narrative 07/31/2023 7:44 PM CDT PROCEDURE: ??XR CHEST 2VW, DATE/TIME OF EXAM: ??07/31/2023 6:48 PM, LOCATION [facility] INDICATION: R07.89: Other chest pain ADDITIONAL CLINICAL INFORMATION: Ordering Provider Reason For Exam: ??chest pain COMPARISON: X-ray chest 06/06/2019. TECHNIQUE: Frontal and lateral radiograph of the chest. FINDINGS/IMPRESSION: There is no focal consolidation, pleural effusion, or pneumothorax. The cardiomediastinal silhouette is normal. The visible bony thorax is intact. Report dictated by To George MD, (Logging Specialist). Jorge Salgado MD have personally reviewed and interpreted this examination/study. > Interpreting Provider: Jorge Aguilera MD on 07/31/2023 7:44 PM Procedure Note Jorge Aguilera MD - 07/31/2023 PROCEDURE: XR CHEST 2VW, DATE/TIME OF EXAM: 07/31/2023 6:48 PM, LOCATION [facility] INDICATION: R07.89: Other chest pain ADDITIONAL CLINICAL INFORMATION: Ordering Provider Reason For Exam: chest pain COMPARISON: X-ray chest 06/06/2019. TECHNIQUE: Frontal and lateral radiograph of the chest. FINDINGS/IMPRESSION: There is no focal consolidation, pleural effusion, or pneumothorax. The cardiomediastinal silhouette is normal. The visible bony thorax isintact. Report dictated by To George MD, (Logging Specialist). Jorge Salgado MD have personally reviewed and [...] (Bezet) 433 ms [facility] MUSE Calculated P [place] 48 degrees [facility] MUSE Calculated R [place] 25 degrees [facility] MUSE Calculated T [place] 7 degrees [facility] MUSE Interpretation EKG NORMAL SINUS RHYTHM NORMAL ECG WHEN COMPARED WITH ECG OF 06-JUN-2019 14:27, QUESTIONABL E CHANGE IN QRS AXIS Confirmed by [place]IN ??WANDY COLLIER ([id number]) on 08/02/2023 11:47:10 PM [facility] MUSE 07/31/2023 5:56 PM CDT 08/02/2023 11:47 PM CDT Damir Tesfaye MD ECG ORDERABLES Performing Organization Address [facility] Co de Phone Number [facility] MUSE * TROPONIN I (06/06/2019 2:29 PM CDT) Troponin I 0.016 <0.032 ng/mL 06/06/2019 2:56 PM CDT [facility] Blood BLOOD SPECIMEN / Unknown Venipuncture / Unknown 06/06/2019 2:29 PM CDT 06/06/2019 2:29 PM CDT Brian Benítez DO LAB - CHEMISTRY CEE BENDER Performing Organization Address [facility] Co de Phone Number [facility] [address] [phone] * (ABNORMAL) DRUG SCREEN TRIAGE PANEL (06/18/2009 2:45 PM CDT) Phencyclidine Screen Urine Negative Negative ng/ml [facility] Benzodiazepines Screen Urine Negative Negative ng/ml [facility] Cocaine Screen Urine Negative Negative ng/ml [facility] Amphetamines Screen Urine Negative Negative ng/ml [facility] Cannabinoids Screen Urine Negative Negative ng/ml [facility] Opiate Screen Urine Presumptive Positive(AA) Negative ng/ml [facility] Barbiturates Screen Urine Negative Negative ng/ml [facility] URINE / Unknown 06/18/2009 2 :45 PM CDT 06/18/2009 3:33 PM CDT Ron Gonzalez MD LAB - URINE CHEMISTR Y ORDERABLES Performing Organization Address [facility]/ZIP Co de Phone Number [facility] [address] [place] [phone]
--- OUTSIDE RECORDS SUMMARY | 2024-03-23 11:50 | XMS_ITS | Encounter Summary ---
Author Organization [facility] Address [address] [place] [address] Care Team Providers Care Dye Line Operator Name Role Phone Janet Desai MD Primary Care Provider [phone] Encounter Details Date Type Department Care Team (Late Contact Info) Description 03/16/[address] [facility] S [facility] [address] [place] [address] Vanda Perdue, ANP [address] [facility] [address] [facility] [address] [place] [address] Social History Tobacco Use Types Packs/Day Years Used Date Smoking Tobacco: Never Smokeless Tobacco: Never Alcohol Use Standard Drinks/Week Comments Yes 0 (1 standard drink = 0.6 oz pur e alcohol) Sex and Gender Information Value Date Recorded Sex Assigned at Not on file Legal Sex Male 9:32 AM CERTIFIED ALCOHOL AND DRUG COUNSELOR Gender Identity Not on file Sexual Orientation Not on file documented as of this encounter Plan of Treatment Upcoming Encounters Date Type Department Care Team (Late Contact Info) Description 03/27/2024 2:45 PM CERTIFIED ALCOHOL AND DRUG COUNSELOR Office Visit [facility] Oncology and Hematology - [place] [address] [facility] [address] [place] [address] True Wilson MD [address] [facility] [address] [place] [address] documented as of this encounter Procedures Procedure Name Priority Date/Time Associated Diagnosis Comments D-DIMER Stat 03/16/2024 7:19 AM CERTIFIED ALCOHOL AND DRUG COUNSELOR documented in this encounter Results * (ABNORMAL) D-DIMER (03/16/2024 7:19 AM CERTIFIED ALCOHOL AND DRUG COUNSELOR) D-DIMER QUANT 0.95(H) <0.50 ug/mL FEU 03/16/2024 12:07 PM CERTIFIED ALCOHOL AND DRUG COUNSELOR [facility] Blood Collection / Unknown 03/16/2024 7:19 AM CERTIFIED ALCOHOL AND DRUG COUNSELOR 03/16/2024 11:28 AM CERTIFIED ALCOHOL AND DRUG COUNSELOR Narrative [facility] - 03/16/2024 12:07 PM CERTIFIED ALCOHOL AND DRUG COUNSELOR D-Dimer assay cutoff value for exclusion of DVT and/or PE is <0.50 ug/mL FEU. us Vanda Perdue ANP HEMATOLOGY ORDERABLES Final Result [facility]# [id number] [address] [place] [address] documented in this encounter Visit Diagnoses Not on filedocumented in this encounter Care Teams Dye Line Operator Relationship Specialty Start Date End Date Janet Desai MD [address] [place] [address] [place] [address] PCP - General Internal Medicine 03/08/24 documented as of this encounter
--- OUTSIDE RECORDS SUMMARY | 2024-03-23 11:50 | XMS_ITS | Encounter Summary ---
Author Organization [facility] Address [address] [place] [address] Care Team Providers Care Field Court Researcher Name Role Phone Janet Desai MD Primary Care Provider [phone] Encounter Details Date Type Department Care Team (Late st Contact Info) Description 03/13/2024 Results Follow-Up [facility] Clinic at Work [employer] [place] [address] [place] [address] Vanda Perdue ANP [address] [facility] [address] [place] [address] Prediabetes (Primary Dx) Social History Tobacco Use Types Packs/Day Years Used Date Smoking Tobacco: Never Smokeless Tobacco: Never Alcohol Use Standard Drinks/Week Comments Yes 0 (1 standard drink = 0.6 oz pur e alcohol) Sex and Gender Information Value Date Recorded Sex Assigned at Not on file Legal 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 Urine did not show any infection. Digestive enzymes are normal, including liver and pancreas. Blood sugar in prediabetic range. Not cause of his illness. Will need to discuss in future. Infection levels are normal but platelet count is low. This is new finding. Recommend repeat CBC today or tomorrow See telephone encounter. OARD TEACHER documented in this encounter Plan of Treatment Upcoming Encounters Date Type Department Care Team (Late st Contact Info) Description 03/27/2024 2:45 PM KEYBOARD TEACHER [facility] - [place] [address] [facility] [address] [place] [address] True Wilson MD [address] [facility] [address] [place] [address] documented as of this encounter Visit Diagnoses Diagnosis Prediabetes- Primary Other abnormal glucose documented in this encounter Care Teams Field Court Researcher Relationship Specialty Start Date End Date Janet Desai MD [address] [place] [address] PCP - General Internal Medicine 03/08/24 documented as of this encounter
--- OUTSIDE RECORDS SUMMARY | 2024-03-23 11:50 | XMS_ITS | Continuity of Care Document ---
Author Organization [facility] Address [address] [place] [address] [place] [address] Phone Care Team Providers Care Instructional Services Specialist Name Role Phone Cristobal Espinal MD Unavailable Unavailable Allergies, Adverse Reactions, Alerts Substance Reaction Status Criticality No Known Allergies Active No Inform ation Medications Medication Instructions Dosage Effective Dates (start - stop) Status Comments Celexa 20 mg tablet take 1 tablet (20MG) by oral route every day 20 MG - Active Xanax 1 mg tablet take 1 tablet (1MG) by oral route 2 times every day as needed 1 MG - Active avoid driving or operate machines Ultram 50 mg tablet take 1 tablet (50MG) by oral route every 6 hours as needed - Active avoid driving or operate machines Procedures Procedure Date OFFICE/OUTPATIENT VISIT, [facility] Advance Directives Directive Yes / No Effective Date File Name No Information Encounters Encounter Description Practice Location Reason(s) For Visit Diagnoses Date Provider Providers Copied on Encounter OFFICE/OUTPA TIENT VISIT, [facility], [address] [place], [place], [id number], tel:[phone] [facility] back pain (chief complaint) anxiety (chief complaint) Dietary surveillance and counselingLumbagoGe neralized anxiety disorder [address] [place], [id number] , [place]. tel:[phone] Family History Family Member Type Diagnosis Age [...] Mental Status Date Cognitive Assessment Orientation - [place] ed to time, place, person, situation.
--- OUTSIDE RECORDS SUMMARY | 2024-03-23 11:50 | XMS_ITS | Referral Summary ---
Author Organization [facility] [employer] Address [address] [facility] [place] [address] Care Team Providers Care Decator Operator Name Role Phone Unavailable Primary Care Provider Unavailabl e Source Comments [facility] [employer]non-owned Affiliates and Associated Physician Practices is amultiple site organization consisting of ambulatory clinics and hospital sitesin [place], [place], [place] and [place]. This disclosure is being madepursuant to the Care Everywhere program and may not contain all information available regarding this patient. Last updated 17.[facility] [employer] Allergies Active Allergy Reactions Criticality Noted Date [...]
--- OUTSIDE RECORDS SUMMARY | 2024-03-23 11:50 | XMS_ITS | Clinical Summary ---
Author Organization [facility] Address [address] [address] Phone Care Team Providers Care Director Of Cardiopulmonary Services Name Role Phone Roland Knight APRN, CNP [...] to complete this topic Insurance Care Teams Director Of Cardiopulmonary Services Relationship Specialty Start Date End Date Roland Knight, MANAGER OF APPLICATIONS DEVELOPMENT, DIGITIZER [address] [place] [address] PCP - General Advanced Practice Nurse 06/14/23
--- OUTSIDE RECORDS SUMMARY | 2024-03-23 11:50 | XMS_ITS | CONTINUITY OF CARE DOCUMENT ---
Author Name artemio ulloa Address Unknown Organization [facility] Address [address] [place] [address] [address] [place] [address] Phone [phone] Care Team Providers Care Wireless Store Manager Name Role Phone Jus Arango MD Unavailable TALYA PIMENTEL MD Unavailable TALYA PIMENTEL MD Unavailable [phone] INSURANCE PROVIDERS Payer name Policy type / Coverage type [place] red republican [employer] [id number]
--- OUTSIDE RECORDS SUMMARY | 2024-03-23 11:50 | XMS_ITS | Encounter Summary ---
Author Organization [facility] Address [address] [place] [address] Care Team Providers Care Visitor Services Coordinator Name Role Phone Janet Desai MD Primary Care Provider [phone] Encounter Details Date Type Department Care Team ([facility] Contact Info) Description 03/16/2024 Results Follow-Up [facility] at Work [employer] [place] [address] [place] [address] Vanda Perdue, ANP [address] [facility] [address] [facility] [address] [place] [address] Social History Tobacco Use Types Packs/Day Years Used Date Smoking Tobacco: Never Smokeless Tobacco: Never Alcohol Use Standard Drinks/Week Comments Yes 0 (1 standard drink = 0.6 oz pur e alcohol) Sex and Gender Information Value Date Recorded Sex Assigned at Not on file Legal Sex Male 9:32 AM CAMPAIGN ADVISOR Gender Identity Not on file Sexual Orientation Not on file documented as of this encounter Plan of Treatment Upcoming Encounters Date Type Department Care Team (Late Contact Info) Description 03/27/2024 2:45 PM CAMPAIGN ADVISOR Office Visit [facility] Oncology and Hematology - [place] [address] [place] [address] True Wilson MD [address] [facility] [address] [place] [address] documented as of this encounter Visit Diagnoses Not on filedocumented in this encounter Care Teams Visitor Services Coordinator Relationship Specialty Start Date End Date Janet Desai MD [address] [place] [address] [place] [address] PCP - General Internal Medicine 03/08/24 documented as of this encounter
--- OUTSIDE RECORDS SUMMARY | 2024-03-23 11:50 | XMS_ITS | Clinical Summary ---
Author Organization [facility] Fridge EVA Address [address] [place] [id number] Care Team Providers Care Glaze Mixer Name Role Phone Janet Desai MD Primary Care Provider [phone] Allergies Active Allergy Reactions Criticality Noted Date Comments Iodinated Contrast Media Anaphylaxis High 02/26/2020 Medications dextroamphetami ne-amphetamine (ADDERALL) 20 mg tabletIndicatio ns:Anxiety state,Attention deficit disorder (ADD) in adult Take one tablet early afternoon 30 Tablet 02/06/20 21 Active eszopiclone (LUNESTA) 3 mg Tablet Take 3 mg by mouth nightly as needed for Insomnia. Active dextroamphetami ne-amphetamine (Mydayis) 50 mg capsule, ER triphasic 24 hr Take 50 mg by mouth daily. Active lumateperone (Caplyta) 42 mg Capsule Take 42 mg by mouth daily. Active Sublocade solution, extended rel syringe Inject 300 mg by subcutaneous injection every 28 days. 10/11/19 24 Active buprenorphine-n alOXone (SUBOXONE FILM) 4-[address] 1 Strip under tongue 1 time daily as needed. 11/24/19 24 Active citalopram (CeleXA) 40 mg tablet Take 40 mg by mouth daily. 12/26/19 24 Active Mavyret 100-40 mg Tablet Take 3 Tablets by mouth daily with supper. 12/29/19 24 Active hydroCHLOROthia zide 12.5 mg tablet Take 12.5 mg by mouth daily. 01/03/20 24 Active methylphenidate ER 54 mg tablet,extended release 24 hr Take 54 mg by mouth daily. 12/26/19 24 Active testosterone cypionate (DEPO-TESTOSTER ONE) 200 mg/mL Oil Inject 200 mg by intramuscular injection every 7 days. 12/23/19 24 Active Linzess 72 mcg Capsule capsule Take 72 mcg by mouth daily before breakfast. 12/14/19 24 Active metoprolol succinate (TOPROL XL) 50 mg Extended Release 24 hour tablet Take 50 mg by mouth daily. 01/03/20 24 Active albuterol sulfate HFA 90 mcg/actuation aerosol inhaler Take 2 Puffs by inhalation. 02/23/19 25 026 Active doxycycline hyclate (VIBRAMYCIN) 100 mg tabletIndicatio ns:Abdominal pain, generalized Take 1 Tablet (100 mg) by mouth 2 times daily for 10 days. 20 Tablet 03/08/19 25 025 Active Problems Problem Noted Date Diagnosed Date Splenomegaly mild on CT scan 07/2023 and 01/202403/15/2024 Prediabetes 03/13/2024 Bipolar disorder, unspecified 09/28/2023 History of palpitations 10/22/2022 Mixed anxiety and depressive disorder 10/22/2022 History of narcotic addiction 10/22/2022 Overview (03/08/2024): In remission since 2020. Seen at [facility] for addition and psych needs. History of ETOH abuse 10/22/2022 Overview (03/08/2024): In remission since 2020. Seen at [facility] for addition and psych needs. Vitamin D insufficiency 10/22/2022 Attention deficit disorder (ADD) in adult 2022 Hepatitis C 10/21/2022 Overview (03/08/2024): Current treatment per Dr. Simon. [facility]. Completed 01/2024. Panic attacks 02/26/2020 Resolved Problems Problem Noted Date Diagnosed Date Resolved Date Hepatitis C antibody test positive 10/21/2022 10/21/2022 Anxiety state 02/26/2020 10/22/2022 Precordial pain 02/26/2020 10/21/2022 Closed nondisp fracture of r ight medial malleolus with routine healing 10/21/2014 Encounters Date Type Department Care Team Description 03/16/2024 9:00 AM HAND MOLDER MEAT Procedure visit [facility] at [facility] [address] [address] Left-sided chest pain 03/16/2024 Orders Only Initial Department [address] [place] [address] Dr BHATTN: [place] [address] Provider, Historical 03/16/2024 Results Follow-Up [facility] [address] [place] [address] Janet Desai MD 03/16/2024 Results Follow-Up [facility] at [facility] [address] [place] [address] Vanda Perdue, ANP 03/16/2024 Lab Requisition [facility] [address] [place] [address] Vanda Perdue, ANP 03/15/2024 3:00 PM HAND MOLDER MEAT Office Visit [facility] [address] [place] [address] Vanda Perdue, RICHARD Left-sided chest pain (Primary Dx); Anxiety state; History of hepatitis C; Splenomegaly mild on CT scan 07/2023 and 01/2024; Prediabetes 03/14/2024 11:00 AM HAND MOLDER MEAT Procedure visit [facility] at [facility] [address] [place] [address] Thrombocytopenia 03/14/2024 External Device Data [facility] ABSTRACTION Provider, Abstract 03/14/2024 External Device Data [facility] ABSTRACTION Provider, Abstract 03/13/2024 Telephone [facility] [address] [place] [address] Vanda Perdue, ANP Results 03/13/2024 Results Follow-Up [facility] at [facility] [address] [place] [address] Vanda Perdue ANP Prediabetes (Primary Dx) 03/09/2024 11:00 AM HAND MOLDER MEAT Procedure visit [facility] at [facility] [employer] [place] [address] [place] [address] Polydipsia; Abdominal pain, generalized 03/08/2024 3:00 PM HAND MOLDER MEAT Office Visit [facility] at [facility] [employer] [place] [address] [place] [address] Vanda Perdue ANP Abdominal pain, generalized (Primary Dx); Chest wall pain; Urine frequency; Polydipsia; Declined influenza vaccine; History of ETOH abuse; History of narcotic addiction (CMS/HCC); Hepatitis C virus infection without hepatic coma, unspecified chronicity; Screening for condition 03/07/2024 External Device Data [facility] ABSTRACTION Provider, Abstract 01/10/2024 7:30 AM HAND MOLDER MEAT Office Visit [facility] at [facility] [employer] [place] [address] [place] [address] Vanda Perdue ANP Acute bilateral low back pain without sciatica (Primary Dx); Hepatitis C virus infection without hepatic coma, unspecified chronicity; Essential hypertension from Last 3 Months Immunizations Immunization Administration Dates Next Due (ADACEL/BOOSTRIX)(10 YR UP) TDAP VACCINE, 0.5ML, IM 10/21/2022 Family History Medical History Relation Name Comments No Known Problems Brother 1 No Known Problems Brother 2 No Known Problems Brother 3 No Known Problems Daughter Heart Attack Father fatal MS Alcohol abuse Maternal Grandfather COPD Maternal Grandmother [...] on file Legal Sex Male 9:32 AM HAND MOLDER MEAT Gender Identity Not on file Sexual Orientation Not on file Last Filed Vital Signs Vital Sign Reading Time Taken Comments Blood Pressure 148/92 03/15/2024 2:43 PM HAND MOLDER MEAT Pulse 95 03/15/2024 2:43 PM HAND MOLDER MEAT Temperature 36.5 ??C (97.7 ??F) 03/15/2024 2:43 PM CS T Respiratory Rate 20 03/15/2024 2:43 PM HAND MOLDER MEAT Oxygen Saturation 98% 03/15/2024 2:43 PM HAND MOLDER MEAT Inhaled Oxygen Concentration - - Weight 127.9 kg (282 lb) 03/15/2024 2:43 PM HAND MOLDER MEAT Height 182.9 cm (6') 03/15/2024 2:43 PM HAND MOLDER MEAT Body Mass Index 38.25 03/15/2024 2:43 PM HAND MOLDER MEAT Plan of Treatment Upcoming Encounters Date Type Department Care Team (Late st Contact Info) Description 03/27/2024 2:45 PM HAND MOLDER MEAT Office Visit [facility] Oncology and Hematology - [place] [address] [facility] [address] [place] [address] True Wilson MD [address] [place] [address] Health Maintenance Due Date Last Done Comments HEPATITIS B VACCINES (1 of 3 - 19+ 3-dose series) 08/23/2006 Preventative Visit- Commercial 02/22/2024 Pre-Diabetes and Diabetes Screening 03/09/2027 03/09/2024 DTAP/TDAP/TD VACCINES (3 - T d or Tdap) 10/21/2032 10/21/2022, 10/20/2014 INFLUENZA VACCINE Completed 03/08/2024 HPV VACCINES Aged Out No longer eligi ble based on patient's age to complete this topic Procedures Procedure Name Priority Date/Time Associated Diagnosis Comments PLEASE NOTE Routine 03/16/2024 7:19 AM HAND MOLDER MEAT D-DIMER Stat 03/16/2024 7:19 AM HAND MOLDER MEAT MD ECG ROUTINE ECG W/LEAST 12 LDS W/I&R Routine 03/15/2024 3:00 PM HAND MOLDER MEAT Left-sided chest pain CBC WITH DIFFERENTIAL Stat 03/14/2024 11:06 AM HAND MOLDER MEAT Thrombocytopenia LIPASE Routine 03/09/2024 11:14 AM HAND MOLDER MEAT Abdominal pain, generalized C-REACTIVE PROTEIN Routine 03/09/2024 11 :14 AM HAND MOLDER MEAT Abdominal pain, generalized CBC WITH DIFFERENTIAL Routine 03/09/2024 11:14 AM HAND MOLDER MEAT Abdominal pain, generalized COMPREHENSIVE METABOLIC PANEL Routine 03/09/2024 11:14 AM HAND MOLDER MEAT Abdominal pain, generalized HEMOGLOBIN A1C Routine 03/09/2024 11:14 AM HAND MOLDER MEAT Polydipsia URINE CULTURE Routine 03/08/2024 3:07 PM HAND MOLDER MEAT Screening for condition from Last 3 Months Results * PLEASE NOTE (03/16/2024 7:19 AM HAND MOLDER MEAT) PLEASE NOTE: [facility] Comment: Detailed Reference Laboratory Report to Follow Test Performed at: [place] [address] [place] ??[address] A[facility]Lindsey [employer] Vo 03/16/2024 7:19 AM HAND MOLDER MEAT 03/16/2024 10:56 AM HAND MOLDER MEAT us Vanda Perdue ANP CHEMISTRY ORDERABLES Final R esult [facility] [phone] [place] [address] [address] [place] [address] * (ABNORMAL) D-DIMER (03/16/2024 7:19 AM HAND MOLDER MEAT) D-DIMER QUANT 0.95(H) <0.50 ug/mL FEU 03/16/2024 12:07 PM HAND MOLDER MEAT [facility] Blood Collection / Unknown 03/16/2024 7:19 AM HAND MOLDER MEAT 03/16/2024 11:28 AM HAND MOLDER MEAT Narrative [facility] - 03/16/2024 12:07 PM HAND MOLDER MEAT D-Dimer assay cutoff value for exclusion of DVT and/or PE is <0.50 ug/mL FEU. Vanda RAMOS HEMATOLOGY ORDERABLES Final Result [facility] CLIA# [id number] [address] [place] [address] * MD ECG ROUTINE ECG W/LEAST 12 LDS W/I&R (03/15/2024 3:00 PM HAND MOLDER MEAT) Narrative [facility] - 03/15/2024 3:00 PM HAND MOLDER MEAT Vanda Perdue ANP ? 03/15/2024 ??4:17 PM EKG 12-LEAD Date/Time: 03/15/2024 3:00 PM Performed by: Vanda Perdue ANP Authorized by: Vanda Perdue ANP ??Comparison: compared with previous ECG Similar to previous ECG Comparison to previous EC in chart. ?? Rhythm: sinus rhythm Rate: normal BPM: 94 QRS axis: normal Conduction: conduction normal Other findings: LVH Clinical impression: normal ECG Comments: LVH noted. V leads. ??No ischemic changes. ??No peaked T waves. ?? No MD depression. ?? Procedure Note Vanda Perdue ANP - 03/15/2024 3:19 PM CST Images from the original note were not included. HISTORY OF PRESENT ILLNESS Brian Watkins , a 38 y.o. male presents with a Chief Complaint of leftupper abdomen pain (Follow up left upper abdomen pain. Patient states heis hurting worse today and feels shaky and short of breath.) Reports worsening stabbing pain in L lower anterior chest area. Pain issudden and can last several hours to a few minutes. Reports fatigue,polyuria with foaming of urine, excess sleepiness present for 4+ months.They have worsened since Influenza A ER visit 02/21/2024. Daughter wasalso ill at that time. Admits his anxiety is high due to his symptoms.He has been online searching for the cause. He is concerned about spleenrupture and heart attack. Mild splenomegaly reported to him in ER from01/2024 CT. This was also present July [address] CT. Completed Hepatitis C treatment per Dr. Simon in Jan 2024. Labs in ER and in FU here were normal except for low platelet count.Repeat CBC today shows normal platelets. Denies missing any of his pain management medications that might causewithdrawal like symptoms. CXR at [place] normal 02/20. See media. REVIEW OF SYSTEMS Review of Systems Constitutional: Positive for diaphoresis and fatigue. Negative for feverand unexpected weight change. Cardiovascular: Positive for chest pain. Negative for palpitations andleg swelling. Gastrointestinal: Positive for nausea. Negative for abdominal pain,constipation, diarrhea and vomiting. Endocrine: Positive for polyuria. Neurological: Negative for light-headedness. Psychiatric/Behavioral: The patient is nervous/anxious. Objective PHYSICAL EXAM BP (!) 148/92 (BP Location: Left arm, Patient Position (BP): Sitting, BPCuff Size: Large Adult) Pulse 95 Temp 97.7 ??F (36.5 ??C) (Tympanic) Resp 20 Ht 6' (1.829 m) Wt 127.9 kg (282 lb) SpO2 98% BMI38.25 kg/m?? Physical Exam Vitals reviewed. Constitutional: General: He is not in acute distress. Appearance: He is ill-appearing (not toxic. pale and intermittentlydiaphoretic.). HENT: Head: Normocephalic. Mouth/Throat: Mouth: Mucous membranes are moist. Pharynx: Oropharynx is clear. Eyes: Conjunctiva/sclera: Conjunctivae normal. Cardiovascular: Rate and Rhythm: Normal rate and regular rhythm. Heart sounds: Normal heart sounds. No murmur heard. Pulmonary: Effort: Pulmonary effort is normal. Breath sounds: Normal breath sounds. No wheezing or rales. Chest: Chest wall: No tenderness. Abdominal: Palpations: Abdomen is soft. Tenderness: There is no abdominal tenderness. There is no right CVAtenderness or left CVA tenderness. Musculoskeletal: Right lower leg: No edema. Left lower leg: No edema. Skin: General: Skin is warm and dry. Findings: No rash. Neurological: General: No focal deficit present. Mental Status: He is alert. Psychiatric: Attention and Perception: Attention normal. Mood and Affect: Mood is anxious. Mood is not depressed. Speech: Speech normal. Cognition and Memory: Cognition normal. EKG 12-LEAD Date/Time: 03/15/2024 3:00 PM Performed by: Vanda Perdue ANP Authorized by: Vanda Perdue ANP Comparison: compared with previousECG Similar to previous ECG Comparison to previous EC in chart. Rhythm: sinus rhythm Rate: normal BPM: 94 QRS axis: normal Conduction: conduction normal Other findings: LVH Clinical impression: normal ECG Comments: LVH noted. V leads. No ischemic changes. No peaked T waves.No MD depression. Assessment ASSESSMENT and PLAN: 1. Left-sided chest pain (Primary) Reviewed pt exam and history with Dr. Desai. Rule out PE with stat Ddimer. Unable to do CTA due to anaphylaxis from iodine contrast in past.( Required [employer]). If D dimer positive, get urgent VQ scan. If negative, consider non contrast CT scan chest and cardiac echo. - EKG 12-LEAD - D-DIMER; Future 2. Anxiety state Waxes and wanes. Reassured of negative findings today, including noischemia on eKG when pain was active. His diaphoresis and pallorresolved. 3. History of hepatitis C Advised to get apt with his GI for exam. Consider side effects from theHep C treatment. 4. Splenomegaly mild on CT scan 07/2023 and 01/2024 Reassured stable. Monitor. Labs normal. 5. Prediabetes Will discuss further in future. He was anxious about this. Advisd 10 lbwt loss will be helpful. FOLLOW UP based on test results and improvement. Appropriate medications prescribed and pt instructed in risks , benefitsand side effects. Appropriate patient instructions provided . See details in AVS Medications and options explained to include common side effects.Understanding of medications, course, diagnosis, and expectations wereexpressed by patient/guardian. Pt advised to call my office in one week if not contacted with any orderedtest results. RICHARD Trevino 03/15/2024 [facility] [employer] [facility] Naartjie [address] [address] Some of this encounter may have been transcribed using [employer] computerized voice recognition without a human gem cutter.This report may or may not have been adjusted for typographical or medicaland syntax errors. Vanda Perdue ANP ECG ORDERABLES Final Result [facility]# [id number] [address] [address] * CBC WITH DIFFERENTIAL (03/14/2024 11:06 AM HAND MOLDER MEAT) Only the most recent of2 resultswithin the time period is included. WBC 7.3 3.8 - 10.8 Thousand/u L [facility] RBC 5.25 4.20 - 5.80 Million/uL [facility] HEMOGLOBIN 14.9 13.2 - 17.1 g/dL [facility] HEMATOCRIT 46.5 38.5 - 50.0 % [facility] MCV 88.6 80.0 - 100.0 fL [facility] MCH 28.4 27.0 - 33.0 pg [facility] MCHC 32.0 32.0 - 36.0 g/dL [facility] Comment: For adults, a slight decrease in the calculated MCHC value (in the range of 30 to 32 g/dL) is most likely not clinically significant; however, it should be interpreted with caution in correlation with other red cell parameters and the patient's clinical condition. RDW 12.4 11.0 - 15.0 % [facility] PLATELETS 158 140 - 400 Thousand/u L [facility] MPV 11.5 7.5 - 12.5 fL [facility] NEUTROPHIL ABSOLUTE 3,716 1,500 - 7,800 cells/uL [facility] LYMPHOCYTE ABSOLUTE 2,869 850 - 3,900 cells/uL [facility] MONOCYTE ABSOLUTE 555 200 - 950 cells/uL [facility] EOSINOPHIL ABSOLUTE 139 15 - 500 cells/uL [facility] BASOPHILS ABSOLUTE 22 0 - 200 cells/uL [facility] NEUTROPHIL 50.9 % [facility] LYMPHOCYTES 39.3 % [facility] MONOCYTE 7.6 % [facility] EOSINOPHILS 1.9 % [facility] BASOPHILS 0.3 % [facility] Comment: Test Performed at: [place] [address] [address] [place] ??[id number] [facility] Blood 03/14/2024 11:0 6 AM HAND MOLDER MEAT 03/14/2024 12:52 PM HAND MOLDER MEAT Vanda Perdue ANP HEMATOLOGY ORDERABLES Final Result [facility] [phone] [facility] [place] [address] [address] [address] [place] [phone] * C-REACTIVE PROTEIN (03/09/2024 11:14 AM HAND MOLDER MEAT) CRP <5.0 <8.0 mg/L [facility] Comment: Test Performed at: [place] [address] [address] [place] ??[phone] [facility] Blood 03/09/2024 11:1 4 AM HAND MOLDER MEAT 03/10/2024 12:45 AM HAND MOLDER MEAT Vanda Perdue ANP CHEMISTRY ORDERABLES Final R esult Performing Organization Address City/[facility]/ZIP Code Phone Number [facility] [phone] [place] [address] [address] [place] [phone] * LIPASE (03/09/2024 11:14 AM HAND MOLDER MEAT) LIPASE 10 7 - 60 U/L [facility] Comment: Test Performed at: [place] [address] [address] [place] ??[phone] [facility] Blood 03/09/2024 11:1 4 AM HAND MOLDER MEAT 03/10/2024 12:45 AM HAND MOLDER MEAT Vanda Perdue ANP CHEMISTRY ORDERABLES Final R esult [facility] [phone] [place] [address] [address] [place] [address] * (ABNORMAL) HEMOGLOBIN A1C (03/09/2024 11:14 AM HAND MOLDER MEAT) HEMOGLOBIN A1C 5.8(H) <5.7 % of total Hgb [facility] Comment: For someone without known diabetes, a hemoglobin A1c value between 5.7% and 6.4% is consistent with prediabetes and should be confirmed with a follow-up test. For someone with known diabetes, a value <7% indicates that their diabetes is well controlled. A1c targets should be individualized based on duration of diabetes, age, comorbid conditions, and other considerations. This assay result is consistent with an increased risk of diabetes. Currently, no consensus exists regarding use of hemoglobin A1c for diagnosis of diabetes for children. ESTIMATED AVERAGE GLUCOSE (MG/DL) 120 mg/dL [facility] ESTIMATED AVERAGE GLUCOSE (MMOL/L) 6.6 mmol/L [facility] Comment: Test Performed at: [place] [address] [place] ??[phone] [facility] Blood 03/09/2024 11:1 4 AM HAND MOLDER MEAT 03/10/2024 12:44 AM HAND MOLDER MEAT Vanda Perdue [facility] CHEMISTRY ORDERABLES Final R esult [facility] [phone] [place] [address] [address] [place] [phone] * (ABNORMAL) COMPREHENSIVE METABOLIC PANEL (03/09/2024 11:14 AM HAND MOLDER MEAT) GLUCOSE 142(H) 65 - 99 mg/dL [facility] Comment: ? Fasting reference interval For someone without known diabetes, a glucose value >125 mg/dL indicates that they may have diabetes and this should be confirmed with a follow-up test. BUN 7 7 - 25 mg/dL [facility] CREATININE 1.01 0.60 - 1.26 mg/dL [facility] GFR 99 > OR = 60 mL/min/1. 73m2 [facility] BUN/CREAT RATIO SEE NOTE: 6 - 22 (calc) [facility] Comment: ?? Not Reported: BUN and Creatinine are within ?? reference range. ? SODIUM 137 135 - 146 mmol/L [facility] GoldbergAnthony Newell POTASSIUM 3.9 3.5 - 5.3 mmol/L [facility] GoldbergAnthony Newell CHLORIDE 102 98 - 110 mmol/L [facility] GoldbergAnthony Newell CO2 27 20 - 32 mmol/L [facility] GoldbergAnthony Newell CALCIUM 9.0 8.6 - 10.3 mg/dL [facility] GoldbergAnthony Newell TOTAL PROTEIN 7.0 6.1 - 8.1 g/dL [facility] YusufAnthony Newell ALBUMIN 4.0 3.6 - 5.1 g/dL [facility] Yusuf darius Newell GLOBULIN 3.0 1.9 - 3.7 g/dL (calc) [facility] GoldbergAnthony Newell ALBUMIN/GLOBULIN RATIO 1.3 1.0 - 2.5 (calc) [facility] BILIRUBIN TOTAL 0.7 0.2 - 1.2 mg/dL [facility] WAYNAnthony Newell ALKALINE PHOSPHATASE 60 36 - 130 U/L [facility] YusufAnthony Newell AST 21 10 - 40 U/L [facility] WAYNAnthony Newell ALT 29 9 - 46 U/L [facility] mccoy [facility] Comment: Test Performed at: [place] [address] [place] ??[phone] Maribell Carver Blood 03/09/2024 11:1 4 AM HAND MOLDER MEAT 03/10/2024 12:45 AM HAND MOLDER MEAT us Vanda Perdue ANP CHEMISTRY ORDERABLES Final R esult [facility] [phone] [place] [address] [place] [address] * URINE CULTURE (03/08/2024 3:07 PM HAND MOLDER MEAT) URINE CULTURE SEE NOTE [facility] GoldbergAnthony Newell Comment: ??CULTURE, URINE, ROUTINE ?Micro Number: ?[id number] ??Test Status: ? Final ??Specimen Source: ?? Urine, clean catch ??Specimen Quality: ??Adequate ??Result: ?No Growth Test Performed at: [facility] [address] [address] [place] ??[phone] Maribell Carver Urine URINE SPECIMEN OBTAINED BY CLEAN CATCH PROCEDURE / Unknown 03/08/2024 3:07 PM HAND MOLDER MEAT 03/09/2024 3:11 AM HAND MOLDER MEAT us Vanda Perdue ANP MICROBIOLOGY - GENERAL ORDER THOMAS Final Result [facility] [phone] [facility] [address] [address] [place] [place] [phone] from Last 3 Months Insurance [employer] [facility] [place] Address: [address] [address] [employer] * Guarantor: [employer] BERNARDINO Z (C) Account Type Relation to Patient Date of Phone Billing Address Corporate Employer ATTN: [employer] MATHEWS [address] [address] [employer] Care Teams Glaze Mixer Relationship Specialty Start Date End Date Janet Desai MD [address] [place] [address] [place] [address] PCP - General Internal Medicine 03/08/24
[2024-03-23 12:34] LABS: Prothrombin Time 13.6 Seconds (11.1-14.7)
[2024-03-23 12:39] LABS: Erythrocyte Sedimentation Rate 4 mm/hr (0-20)
[2024-03-23 12:44] LABS: CRP < 0.5 mg/dL (<1.0)
[2024-03-23 13:40] LABS: Hematocrit 43.7 % (42.0-52.0); Hemoglobin 14.8 g/dL (14.0-18.0); Immature Platelet Fraction Pct 10.4 % (0.9-11.2); Mean Corpuscular HGB Conc 33.9 g/dl (32-36); Mean Corpuscular Volume 85.7 fl (80-100); Mean Platelet Volume 11.7 fl (7.4-10.4); Red Cell Distribution Width 12.5 % (11.5-14.5)
[2024-03-23 13:54] LABS: Platelet Count Result 128 k/mm3 (150-375)
[2024-03-23 14:10] LABS: Alanine Aminotransferase 27 U/L (6-50); Albumin Level 4.5 g/dL (3.5-5.1); Alkaline Phosphatase 71 U/L (38-126); Anion Gap 11 mmol/L (4-12); Aspartate Amino Transferase 33 U/L (17-59); Bilirubin,Total 0.9 mg/dL (0.2-1.3); Blood Urea Nitrogen 9 mg/dL (9-20); Calcium 9.3 mg/dL (8.4-10.2); Carbon Dioxide 26 mmol/L (22-30); Chloride 102 mmol/L (98-107); Estimated Glomerular Filt Rate > 60; Glucose 108 mg/dL (65-110); Potassium 4.1 mmol/L (3.4-5.0); Sodium 139 mmol/L (137-145)
[2024-03-26 18:54] LABS: Immunoglobulin A 315 mg/dL (47-310); TTG IGA AB <1.0 U/mL
[2024-03-27 15:13] LABS: Hepatitis C RNA, Quant PCR <15 NOT DETECTED IU/mL (NOT DETECTED)
== END 2024-03-23 11:47 | disposition home or self-care (01) ==
PROVIDERS: PCP Nurse Practitioner; Visit Provider Nurse Practitioner
DX: B19.20 Unspecified viral hepatitis C without hepatic coma (principal); K58.1 Irritable bowel syndrome with constipation; R63.0 Anorexia; R11.0 Nausea; R79.89 Other specified abnormal findings of blood chemistry
CPT/HCPCS: 36415; 80053; 82652; 82653; 82784; 83993; 84443; 85027; 85055; 85610; 85652; 86038; 86039; 86140; 86364; 87045; 87177; 87209; 87269; 87427; 87449; 87522

== ENCOUNTER 2024-03-27 14:37 | Outpatient (CLI) | payer OTHER, SELFPAY ==
--- OUTSIDE RECORDS SUMMARY | 2024-03-27 14:42 | XMS_ITS | Clinical Summary ---
Author Organization [facility] [employer] Address [address] [place] [address] Care Team Providers Care Jewel Hole Gauger Name Role Phone Unavailable Primary Care Provider Unavailabl e Source Comments [facility] [employer],non-owned Affiliates and Associated Physician Practices is amultiple site organization consisting of ambulatory clinics and hospital sitesin [place], [place], [place] and [place]. This disclosure is being madepursuant to the Care Everywhere program and may not contain all information available regarding this patient. Last updated 17.[facility] [employer] Allergies Active Allergy Reactions Criticality Noted Date [...]
--- OUTSIDE RECORDS SUMMARY | 2024-03-27 14:42 | XMS_ITS | Referral Summary ---
Author Organization [facility] [employer] Address [address] [place] [address] Care Team Providers Care Pie Dough Roller Name Role Phone Unavailable Primary Care Provider Unavailabl e Source Comments [facility] [employer],non-owned Affiliates and Associated Physician Practices is amultiple site organization consisting of ambulatory clinics and hospital sitesin [place], [place], [place] and [place]. This disclosure is being madepursuant to the Care Everywhere program and may not contain all information available regarding this patient. Last updated 17.[facility] [employer] Allergies Active Allergy Reactions Criticality Noted Date [...]
--- OUTSIDE RECORDS SUMMARY | 2024-03-27 14:42 | XMS_ITS | Encounter Summary ---
Author Organization [facility] Address [address] [place] [address] Care Team Providers Care Biosecurity Officer Name Role Phone Janet Desai MD Primary Care Provider [phone] Encounter Details Date Type Department Care Team (Late Contact Info) Description 03/16/2024 Lab Requisition [facility] Laboratory Services [address] [facility] [address] [place] [address] Vanda Perdue, ANP [address] [facility] [address] [facility] [address] [place] [address] Social History Tobacco Use Types Packs/Day Years Used Date Smoking Tobacco: Never Smokeless Tobacco: Never Alcohol Use Standard Drinks/Week Comments Yes 0 (1 standard drink = 0.6 oz pur e alcohol) Sex and Gender Information Value Date Recorded Sex Assigned at Not on file Legal Sex Male 9:32 AM BUILDING MOVER Gender Identity Not on file Sexual Orientation Not on file documented as of this encounter Plan of Treatment Upcoming Encounters Date Type Department Care Team (Late Contact Info) Description 03/27/2024 2:45 PM BUILDING MOVER Office Visit [facility] Oncology and Hematology - [place] [address] [facility] [address] [place] [address] True Wilson MD [address] [facility] [address] [place] [address] documented as of this encounter Procedures Procedure Name Priority Date/Time Associated Diagnosis Comments D-DIMER Stat 03/16/2024 7:19 AM BUILDING MOVER documented in this encounter Results * (ABNORMAL) D-DIMER (03/16/2024 7:19 AM BUILDING MOVER) D-DIMER QUANT 0.95(H) <0.50 ug/mL FEU 03/16/2024 12:07 PM BUILDING MOVER [facility] Blood Collection / Unknown 03/16/2024 7:19 AM BUILDING MOVER 03/16/2024 11:28 AM BUILDING MOVER Narrative [facility] - 03/16/2024 12:07 PM BUILDING MOVER D-Dimer assay cutoff value for exclusion of DVT and/or PE is <0.50 ug/mL FEU. us Vanda Perdue ANP HEMATOLOGY ORDERABLES Final Result [facility]# [id number] [address] [place] [address] documented in this encounter Visit Diagnoses Not on filedocumented in this encounter Care Teams Biosecurity Officer Relationship Specialty Start Date End Date Janet Desai MD [address] [place] [address] [place] [address] PCP - General Internal Medicine 03/08/24 documented as of this encounter
--- OUTSIDE RECORDS SUMMARY | 2024-03-27 14:42 | XMS_ITS | Continuity of Care Document ---
Author Organization [facility] Address [address] [place] [address] [place] [address] Phone Care Team Providers Care Sack Cleaning Hand Name Role Phone Cristobal Espinal MD Unavailable [...] - Active Procedures Procedure Date OFFICE/OUTPATIENT VISIT, [facility] Advance Directives Directive Yes / No Effective Date File Name No Information Encounters Encounter Description Practice Location Reason(s) For Visit Diagnoses Date Provider Providers Copied on Encounter OFFICE/OUTPA TIENT VISIT, [facility], [place], [address] [place], [place], [id number], tel:[phone] [facility], [place], [facility] back pain (chief complaint) anxiety (chief complaint) Dietary surveillance and counselingLumbagoGe neralized anxiety disorder [address] [place], [address] , [place]. tel:[phone] Family History Family Member Type Diagnosis Age [...] Mental Status Date Cognitive Assessment Orientation - [place] ed to time, place, person, situation.
--- OUTSIDE RECORDS SUMMARY | 2024-03-27 14:42 | XMS_ITS | Encounter Summary ---
Author Organization [facility] Address [address] [place] [address] Care Team Providers Care Associate Drafter Name Role Phone Janet Desai MD Primary Care Provider [phone] Encounter Details Date Type Department Care Team (Late st Contact Info) Description 03/13/2024 Results Follow-Up [facility] at [facility] [employer] [address] [place] [address] Vanda Perdue ANP [address] [facility] [address] [place] [address] Prediabetes (Primary Dx) Social History Tobacco Use Types Packs/Day Years Used Date Smoking Tobacco: Never Smokeless Tobacco: Never Alcohol Use Standard Drinks/Week Comments Yes 0 (1 standard drink = 0.6 oz pur e alcohol) Sex and Gender Information Value Date Recorded Sex Assigned at Not on file Legal Sex Male 9:32 AM INDEPENDENT FILM MAKER Gender Identity Not on file Sexual Orientation Not on file documented as of this encounter Miscellaneous Notes * Result Encounter Note - Vanda Perdue ANP - 03/13/2024 7:20 AM INDEPENDENT FILM MAKER Contact patient regarding result. Urine did not show any infection. Digestive enzymes are normal, including liver and pancreas. Blood sugar in prediabetic range. Not cause of his illness. Will need to discuss in future. Infection levels are normal but platelet count is low. This is new finding. Recommend repeat CBC today or tomorrow See telephone encounter. PENDENT FILM MAKER documented in this encounter Plan of Treatment Upcoming Encounters Date Type Department Care Team (Late st Contact Info) Description 03/27/2024 2:45 PM INDEPENDENT FILM MAKER Office Visit [facility] Oncology and Hematology - [place] [address] [facility] [address] [place] [address] True Wilson MD [address] [facility] [address] [place] [address] documented as of this encounter Visit Diagnoses Diagnosis Prediabetes- Primary Other abnormal glucose documented in this encounter Care Teams Associate Drafter Relationship Specialty Start Date End Date Janet Desai MD [address] [place] [address] PCP - General Internal Medicine 03/08/24 documented as of this encounter
--- OUTSIDE RECORDS SUMMARY | 2024-03-27 14:42 | XMS_ITS | Patient Health Summary ---
Author Organization [facility] [email or web address] Address [address] [place] [address] Care Team Providers Care Rodding Machine Tender Name Role Phone Unavailable Primary Care Provider Unavailabl e Note from [facility],non-owned Affiliates and Associated Physician Practices is amultiple site organization consisting of ambulatory clinics and hospital sitesin [place], [place], [place] and [place]. This disclosure is being madepursuant to the Care Everywhere program and may not contain all information available regarding this patient. Last updated 17.[facility] Allergies * Contrast-Iodinated Agents For Ct/Other(Anaphylaxis) -High [...] REFLEX 1HOUR (07/31/2023 11:14 PM CDT) Pathologist [facility] Troponin I High Sensitive <3 <=35 ng/L 08/01/2023 12:02 AM CDT [facility] Delta Troponin I HS 08/01/2023 12:02 AM CDT [facility] Comment:Result exceeds linea rity range. A delta value is unable to be calculated. Blood BLOOD SPECIMEN / Unknown Venipuncture / Unknown 07/31/2023 11:14 PM CDT 07/31/2023 11:19 PM CDT Damir Tesfaye MD LAB - CHEMISTRY CEE BENDER [address] [address], [facility] [phone] * TROPONIN-I HIGH SENSITIVE BASELINE + 1HR (07/31/2023 9:49 PM CDT) [facility] Troponin I High Sensitive <3 <=35 ng/L 07/31/2023 10:27 PM T [facility] Blood BLOOD SPECIMEN / Unknown Venipuncture / Unknown 07/31/2023 9:49 PM CDT 07/31/2023 9:54 PM CDT Damir Tesfaye MD LAB - CHEMISTRY CEE BENDER [address] [address], [facility] [phone] * (ABNORMAL) CBC W AUTO DIFFERENTIAL (07/31/2023 9:49 PM CDT) Only the most recent of2 resultswithin the time period is included. [facility] WBC 9.1 4.0 - 10.7 x10E9/L 07/31/2023 10:05 PM [facility] RBC Count 5.19 4.30 - 5.80 x10E12/L 07/31/2023 10:05 PM [facility] Hemoglobin 14.9 13.3 - 17.5 g/dL 07/31/2023 10:05 PM [facility] Hematocrit 43.7 38.7 - 51.1 % 07/31/2023 10:05 PM [facility] MCV 84.2 80.0 - 98.0 fL 07/31/2023 10:05 PM [facility] MCH 28.7 26.7 - 33.6 pg 07/31/2023 10:05 PM [facility] MCHC 34.1 31.7 - 36.3 g/dL 07/31/2023 10:05 PM [facility] RDW-CV 12.7 11.3 - 14.8 % 07/31/2023 10:05 PM [facility] Platelet Count 145(L) 150 - 420 x10E9/L 07/31/2023 10:05 PM [facility] MPV 10.9 7.8 - 11.4 fL 07/31/2023 10:05 PM [facility] Neutrophil % 69.2 41.0 - 74.0 % 07/31/2023 10:05 PM [facility] Lymphocyte % 25.8 17.0 - 47.0 % 07/31/2023 10:05 PM [facility] Monocyte % 4.4 3.0 - 11.0 % 07/31/2023 10:05 PM [facility] Eosinophil % 0.2 0.0 - 7.0 % 07/31/2023 10:05 PM [facility] Basophil % 0.2 0.0 - 1.6 % 07/31/2023 10:05 PM [facility] Immature Granulocytes % 0.2 0.0 - 1.0 % 07/31/2023 10:05 PM [facility] Neutrophil Absolute 6.29 1.60 - 7.50 x10E9/L 07/31/2023 10:05 PM [facility] Lymphocyte Absolute 2.35 1.00 - 4.40 x10E9/L 07/31/2023 10:05 PM [facility] Monocyte Absolute 0.40 0.15 - 1.00 x10E9/L 07/31/2023 10:05 PM [facility] Eosinophil Absolute 0.02 0.00 - 0.60 x10E9/L 07/31/2023 10:05 PM CDT [facility] Basophil Absolute 0.02 0.00 - 0.13 x10E9/L 07/31/2023 10:05 PM CDT [facility] Blood BLOOD SPECIMEN / Unknown Venipuncture / Unknown 07/31/2023 9:49 PM CDT 07/31/2023 9:54 PM CDT Damir Tesfaye MD LAB - HEMATOLOGY ORD ERABLES Performing Organization Address City/State/[facility] Co de Phone Number [facility] [address] [place] [address], [facility] [phone] * B-TYPE NATRIURETIC PEPTIDE (07/31/2023 9:49 PM CDT) Pathologist [facility] BNP 25 <100 pg/mL 07/31/2023 10:25 PM CDT [facility] Comment: A decision threshold of 100 [...] - CHEMISTRY CEE BENDER Performing Organization Address [facility]/State/ZIP Co de Phone Number [facility] [address] [place] [address], [facility] [phone] * (ABNORMAL) COMPREHENSIVE METABOLIC PANEL (07/31/2023 9:49 PM CDT) Only the most recent of2 resultswithin the time period is included. BUN 8 7 - 26 mg/dL 07/31/2023 10:24 PM [facility] Creatinine 0.92 0.71 - 1.16 mg/dL 07/31/2023 10:24 PM [facility] Sodium 139 136 - 145 mmol/L 07/31/2023 10:24 PM [facility] Potassium 3.7 3.5 - 4.5 mmol/L 07/31/2023 10:24 PM [facility] Chloride 104 98 - 107 mmol/L 07/31/2023 10:24 PM [facility] CO2 25 22 - 29 mmol/L 07/31/2023 10:24 PM [facility] Glucose 90 70 - 115 mg/dL 07/31/2023 10:24 PM [facility] Calcium 9.1 8.4 - 10.2 mg/dL 07/31/2023 10:24 PM [facility] Protein Total 8.2 6.0 - 8.3 g/dL 07/31/2023 10:24 PM [facility] Albumin 4.0 3.4 - 5.0 g/dL 07/31/2023 10:24 PM [facility] Bilirubin Total 0.8 0.2 - 1.2 mg/dL 07/31/2023 10:24 PM [facility] Alkaline Phosphatase 61 40 - 150 U/L 07/31/2023 10:24 PM [facility] ALT 105(H) 5 - 55 U/L 07/31/2023 10:24 PM [facility] AST 63(H) 5 - 34 U/L 07/31/2023 10:24 PM [facility] Anion Gap 10 6 - 16 07/31/2023 10:24 PM [facility] BUN/Creatinine Ratio 9 7 - 23 07/31/2023 10:24 PM [facility] Osmolality Calculated 286 275 - 295 mOsm/kg 07/31/2023 10:24 PM [facility] Albumin/Globulin Ratio 1.0(L) 1.1 - 2.3 07/31/2023 10:24 PM [facility] eGFR by CKD-EPI >90 >=90 mL/min/1.7 3 m2 07/31/2023 10:24 PM [facility] Blood BLOOD SPECIMEN / Unknown Venipuncture / Unknown 07/31/2023 9:49 PM CDT 07/31/2023 9:54 PM CDT Damir Tesfaye MD LAB - CHEMISTRY CEE BENDER [facility] Organization Address City/State/ZIP Co de Phone Number [facility] [address] [place] [address], [facility] [phone] * XR CHEST 2VW (07/31/2023 6:48 PM CDT) Only the most recent of2 resultswithin the time period is included. Anatomical Region Laterality Modality Chest Radiographic Roberta ging 07/31/2023 6:52 PM CDT Narrative 07/31/2023 7:44 PM CDT PROCEDURE: ??XR CHEST 2VW, DATE/TIME OF EXAM: ??07/31/2023 6:48 PM, LOCATION [facility] INDICATION: R07.89: Other chest pain ADDITIONAL CLINICAL INFORMATION: Ordering Provider Reason For Exam: ??chest pain COMPARISON: X-ray chest 06/06/2019. TECHNIQUE: Frontal and lateral radiograph of the chest. FINDINGS/IMPRESSION: There is no focal consolidation, pleural effusion, or pneumothorax. The cardiomediastinal silhouette is normal. The visible bony thorax is intact. Report dictated by To George MD, (Digital Imager). Jorge Salgado MD have personally reviewed and interpreted this examination/study. > Interpreting Provider: Jorge Aguilera MD on 07/31/2023 7:44 PM Procedure Note Jorge Aguilera MD - 07/31/2023 PROCEDURE: XR CHEST 2VW, DATE/TIME OF EXAM: 07/31/2023 6:48 PM, LOCATION [facility] INDICATION: R07.89: Other chest pain ADDITIONAL CLINICAL INFORMATION: Ordering Provider Reason For Exam: chest pain COMPARISON: X-ray chest 06/06/2019. TECHNIQUE: Frontal and lateral radiograph of the chest. FINDINGS/IMPRESSION: There is no focal consolidation, pleural effusion, or pneumothorax. The cardiomediastinal silhouette is normal. The visible bony thorax isintact. Report dictated by To George MD, (Digital Imager). Jorge Salgado MD have personally reviewed and [...] (Bezet) 433 ms [facility] MUSE Calculated P Guffey 48 degrees [facility] MUSE Calculated R Guffey 25 degrees [facility] MUSE Calculated T Guffey 7 degrees [facility] MUSE Interpretation EKG NORMAL SINUS RHYTHM NORMAL ECG WHEN COMPARED WITH ECG OF 06-JUN-2019 14:27, QUESTIONABL E CHANGE IN QRS AXIS Confirmed by [place] ??WANDY COLLIER ([id number]) on 08/02/2023 11:47:10 PM [facility] MUSE 07/31/2023 5:56 PM CDT 08/02/2023 11:47 PM CDT Damir Tesfaye MD ECG ORDERABLES Performing Organization Address [facility] Co de Phone Number [facility] MUSE * TROPONIN I (06/06/2019 2:29 PM CDT) Troponin I 0.016 <0.032 ng/mL 06/06/2019 2:56 PM CDT [facility] Blood BLOOD SPECIMEN / Unknown Venipuncture / Unknown 06/06/2019 2:29 PM CDT 06/06/2019 2:29 PM CDT Brian Benítez DO LAB - CHEMISTRY CEE BENDER Performing Organization Address [facility] Co de Phone Number [facility] [address] [phone] * (ABNORMAL) DRUG SCREEN TRIAGE PANEL (06/18/2009 2:45 PM CDT) Phencyclidine Screen Urine Negative Negative ng/ml [facility] Benzodiazepines Screen Urine Negative Negative ng/ml [facility] Cocaine Screen Urine Negative Negative ng/ml [facility] Amphetamines Screen Urine Negative Negative ng/ml [facility] Cannabinoids Screen Urine Negative Negative ng/ml [facility] Opiate Screen Urine Presumptive Positive(AA) Negative ng/ml [facility] Barbiturates Screen Urine Negative Negative ng/ml [facility] URINE / Unknown 06/18/2009 2 :45 PM CDT 06/18/2009 3:33 PM CDT Ron Gonzalez MD LAB - URINE CHEMISTR Y ORDERABLES Performing Organization Address [facility]/ZIP Co de Phone Number [facility] [address] [place] [phone]
--- OUTSIDE RECORDS SUMMARY | 2024-03-27 14:42 | XMS_ITS | Clinical Summary ---
Author Organization [facility] [employer] [place] Address [address] [place] [address] Care Team Providers Care [employer] Nursing Director Name Role Phone Janet Desai MD Primary Care Provider [phone] Allergies Active Allergy Reactions Criticality Noted Date [...] (03/08/2024): In remission since 2020. Seen at [facility] for addition and psych needs. History of ETOH abuse 10/22/2022 Overview (03/08/2024): In remission since 2020. Seen at [facility] for addition and psych needs. Vitamin D insufficiency 10/22/2022 Attention deficit disorder (ADD) in adult 2022 Hepatitis C 10/21/2022 Overview (03/08/2024): Current treatment per Dr. Simon. [facility]. Completed 01/2024. Panic attacks 02/26/2020 Resolved Problems Problem Noted Date Diagnosed Date Resolved Date Hepatitis C antibody test positive 10/21/2022 10/21/2022 Anxiety state 02/26/2020 10/22/2022 Precordial pain 02/26/2020 10/21/2022 Closed nondisp fracture of r ight medial malleolus with routine healing 10/21/2014 Encounters Date Type Department Care Team Description 03/16/2024 9:00 AM HOMEBIRTH MIDWIFE Procedure visit [facility] [address] [address] Left-sided chest pain 03/16/2024 Orders Only Initial Department [address] [place] [address] Dr BHATTN: [place] [address] Provider, Historical 03/16/2024 Results Follow-Up [facility] [address] [address] Janet Desai MD 03/16/2024 Results Follow-Up [facility] [address] [address] Vanda Perdue, ANP 03/16/2024 Lab Requisition [facility] [address] [place] [address] Vanda Perdue, ANP 03/15/2024 3:00 PM HOMEBIRTH MIDWIFE Office Visit [facility] [address] [place] [address] Vanda Perdue, RICHARD Left-sided chest pain (Primary Dx); Anxiety state; History of hepatitis C; Splenomegaly mild on CT scan 07/2023 and 01/2024; Prediabetes 03/14/2024 11:00 AM HOMEBIRTH MIDWIFE Procedure visit [facility] [address] [place] [address] Thrombocytopenia 03/14/2024 External Device Data STL ABSTRACTION Provider, Abstract 03/14/2024 External Device Data ST[facility] ABSTRACTION Provider, Abstract 03/13/2024 Telephone [facility] [address] [place] [address] Vanda Perdue, ANP Results 03/13/2024 Results Follow-Up [facility] [address] [place] [address] Vanda Perdue ANP Prediabetes (Primary Dx) 03/09/2024 11:00 AM HOMEBIRTH MIDWIFE Procedure visit [facility] [employer] [place] [address] [place] [address] Polydipsia; Abdominal pain, generalized 03/08/2024 3:00 PM HOMEBIRTH MIDWIFE Office Visit [facility] [employer] [place] [address] [place] [address] Vanda Perdue ANP Abdominal pain, generalized (Primary Dx); Chest wall pain; Urine frequency; Polydipsia; Declined influenza vaccine; History of ETOH abuse; History of narcotic addiction (CMS/HCC); Hepatitis C virus infection without hepatic coma, unspecified chronicity; Screening for condition 03/07/2024 External Device Data STL ABSTRACTION Provider, Abstract 01/10/2024 7:30 AM HOMEBIRTH MIDWIFE Office Visit [facility] [place] [address] [place] [address] Vanda Perdue ANP Acute bilateral low back [...] Known Problems Daughter Heart Attack Father fatal [place] Alcohol abuse Maternal Grandfather COPD Maternal Grandmother [...] on file Legal Sex Male 9:32 AM HOMEBIRTH MIDWIFE Gender Identity Not on file Sexual Orientation Not on file Last Filed Vital Signs Vital Sign Reading Time Taken Comments Blood Pressure 148/92 03/15/2024 2:43 PM HOMEBIRTH MIDWIFE Pulse 95 03/15/2024 2:43 PM HOMEBIRTH MIDWIFE Temperature 36.5 ??C (97.7 ??F) 03/15/2024 2:43 PM CS T Respiratory Rate 20 03/15/2024 2:43 PM HOMEBIRTH MIDWIFE Oxygen Saturation 98% 03/15/2024 2:43 PM HOMEBIRTH MIDWIFE Inhaled Oxygen Concentration - - Weight 127.9 kg (282 lb) 03/15/2024 2:43 PM HOMEBIRTH MIDWIFE Height 182.9 cm (6') 03/15/2024 2:43 PM HOMEBIRTH MIDWIFE Body Mass Index 38.25 03/15/2024 2:43 PM HOMEBIRTH MIDWIFE Plan of Treatment Upcoming Encounters Date Type Department Care Team (Late st Contact Info) Description 03/27/2024 2:45 PM HOMEBIRTH MIDWIFE Office Visit [facility] Oncology and Hematology - [place] [address] [facility] [address] [place] [address] True Wilson MD [address] [facility] [address] [place] [address] Health Maintenance Due Date Last [...] Comments PLEASE NOTE Routine 03/16/2024 7:19 AM HOMEBIRTH MIDWIFE D-DIMER Stat 03/16/2024 7:19 AM HOMEBIRTH MIDWIFE ND ECG ROUTINE ECG W/LEAST 12 LDS W/I&R Routine 03/15/2024 3:00 PM HOMEBIRTH MIDWIFE Left-sided chest pain CBC WITH DIFFERENTIAL Stat 03/14/2024 11:06 AM HOMEBIRTH MIDWIFE Thrombocytopenia LIPASE Routine 03/09/2024 11:14 AM HOMEBIRTH MIDWIFE Abdominal pain, generalized C-REACTIVE PROTEIN Routine 03/09/2024 11 :14 AM HOMEBIRTH MIDWIFE Abdominal pain, generalized CBC WITH DIFFERENTIAL Routine 03/09/2024 11:14 AM HOMEBIRTH MIDWIFE Abdominal pain, generalized COMPREHENSIVE METABOLIC PANEL Routine 03/09/2024 11:14 AM HOMEBIRTH MIDWIFE Abdominal pain, generalized HEMOGLOBIN A1C Routine 03/09/2024 11:14 AM HOMEBIRTH MIDWIFE Polydipsia URINE CULTURE Routine 03/08/2024 3:07 PM HOMEBIRTH MIDWIFE Screening for condition from Last 3 Months Results * PLEASE NOTE (03/16/2024 7:19 AM HOMEBIRTH MIDWIFE) PLEASE NOTE: [email or web address] Comment: Detailed Reference Laboratory Report to Follow Test Performed at: [place] [address] [place] ??[phone] [employer] Vo 03/16/2024 7:19 AM HOMEBIRTH MIDWIFE 03/16/2024 10:56 AM HOMEBIRTH MIDWIFE us Vanda Perdue ANP CHEMISTRY ORDERABLES Final R esult [facility] [phone] [place] [address] [address] [place] [phone] * (ABNORMAL) D-DIMER (03/16/2024 7:19 AM HOMEBIRTH MIDWIFE) D-DIMER QUANT 0.95(H) <0.50 ug/mL FEU 03/16/2024 12:07 PM HOMEBIRTH MIDWIFE [facility] Blood Collection / Unknown 03/16/2024 7:19 AM HOMEBIRTH MIDWIFE 03/16/2024 11:28 AM HOMEBIRTH MIDWIFE Narrative [facility] - 03/16/2024 12:07 PM HOMEBIRTH MIDWIFE D-Dimer assay cutoff value for exclusion of DVT and/or PE is <0.50 ug/mL FEU. Vanda RAMOS HEMATOLOGY ORDERABLES Final Result [facility] CLIA# [id number] [address] [place] [address] * ND ECG ROUTINE ECG W/LEAST 12 LDS W/I&R (03/15/2024 3:00 PM HOMEBIRTH MIDWIFE) Narrative [facility] - 03/15/2024 3:00 PM HOMEBIRTH MIDWIFE Vanda Perdue ANP ? 03/15/2024 ??4:17 PM [...] changes. ??No peaked T waves. ?? No ND depression. ?? Procedure Note Vanda Perdue ANP [...] that might causewithdrawal like symptoms. CXR at [place] normal 02/20. See media. REVIEW OF SYSTEMS [...] No ischemic changes. No peaked T waves.No ND depression. Assessment ASSESSMENT and PLAN: 1. Left-sided [...] with any orderedtest results. RICHARD Trevino 03/15/2024 [facility] [employer] [facility] AT WORK [facility] [employer] [address] [address] Some of this encounter may have been transcribed using expressor software computerized voice recognition without a human sewing teacher.This report may or may not have been adjusted for typographical or medicaland syntax errors. Vanda Perdue ANP ECG ORDERABLES Final Result [facility]# [id number] [address] [address] * CBC WITH DIFFERENTIAL (03/14/2024 11:06 AM HOMEBIRTH MIDWIFE) Only the most recent of2 resultswithin the [...] Diagnostics-S t Reece Comment: Test Performed at: [place] [address] [address] [place] ??[phone] A[facility]Josephine [facility] Blood 03/14/2024 11:0 6 AM HOMEBIRTH MIDWIFE 03/14/2024 12:52 PM HOMEBIRTH MIDWIFE Vanda Perdue ANP HEMATOLOGY ORDERABLES Final Result [facility] [phone] [facility] [address] [place] [address] [address] [place] [phone] * C-REACTIVE PROTEIN (03/09/2024 11:14 AM HOMEBIRTH MIDWIFE) CRP <5.0 <8.0 mg/L [employer]-S darius Newell Comment: Test Performed at: [place] [address] [address] [place] ??[phone] [facility] Blood 03/09/2024 11:1 4 AM HOMEBIRTH MIDWIFE 03/10/2024 12:45 AM HOMEBIRTH MIDWIFE Vanda Perdue ANP CHEMISTRY ORDERABLES Final R esult Performing Organization Address City/[facility]/ZIP Code Phone Number [facility] [phone] [place] [address] [address] [place] [phone] * LIPASE (03/09/2024 11:14 AM HOMEBIRTH MIDWIFE) LIPASE 10 7 - 60 U/L [facility] Call Britannia-S t Reece Comment: Test Performed at: [place] [address] [address] [place] ??[phone] [facility] Blood 03/09/2024 11:1 4 AM HOMEBIRTH MIDWIFE 03/10/2024 12:45 AM HOMEBIRTH MIDWIFE Vanda Perdue ANP CHEMISTRY ORDERABLES Final R esult [facility] [phone] [place] [address] [address] [place] [phone] * (ABNORMAL) HEMOGLOBIN A1C (03/09/2024 11:14 AM HOMEBIRTH MIDWIFE) HEMOGLOBIN A1C 5.8(H) <5.7 % of total Hgb [facility] Call BritanniaSatya Newell Comment: For someone without known diabetes, [...] ESTIMATED AVERAGE GLUCOSE (MG/DL) 120 mg/dL [facility] Call BritanniaSatya Newell ESTIMATED AVERAGE GLUCOSE (MMOL/L) 6.6 mmol/L [facility] Call BritanniaSatya Newell Comment: Test Performed at: [place] [address] [place] ??[phone] AuryDavida Meek Blood 03/09/2024 11:1 4 AM HOMEBIRTH MIDWIFE 03/10/2024 12:44 AM HOMEBIRTH MIDWIFE Vanda Perdue [facility] CHEMISTRY ORDERABLES Final R esult [facility] [phone] [place] [address] [address] [place] [phone] * (ABNORMAL) COMPREHENSIVE METABOLIC PANEL (03/09/2024 11:14 AM HOMEBIRTH MIDWIFE) GLUCOSE 142(H) 65 - 99 mg/dL Kizzy Newell Comment: ? Fasting reference interval For someone without known diabetes, a glucose value >125 mg/dL indicates that they may have diabetes and this should be confirmed with a follow-up test. BUN 7 7 - 25 mg/dL [facility] Call BritanniaSatya Newell CREATININE 1.01 0.60 - 1.26 mg/dL [facility] Call BritanniaSatya Newell GFR 99 > OR = 60 mL/min/1. 73m2 YourP[facility]TVSatya Newell BUN/CREAT RATIO SEE NOTE: 6 - 22 (calc) YourPOV.TVAnthony Newell Comment: ?? Not Reported: BUN and Creatinine are within ?? reference range. ? SODIUM 137 135 - 146 mmol/L Kizzy GoldbergAnthony Newell POTASSIUM 3.9 3.5 - 5.3 mmol/L Kizzy GoldbergAnthony Newell CHLORIDE 102 98 - 110 mmol/L Kizzy GoldbergAnthony Newell CO2 27 20 - 32 mmol/L Kizzy GoldbergAnthony Newell CALCIUM 9.0 8.6 - 10.3 mg/dL iKzzy GoldbergAnthony Newell TOTAL PROTEIN 7.0 6.1 - 8.1 g/dL [facility] YusufAnthony Newell ALBUMIN 4.0 3.6 - 5.1 g/dL [facility] Yusuf darius Newell GLOBULIN 3.0 1.9 - 3.7 g/dL (calc) Kizzy GoldbergAnthony Newell ALBUMIN/GLOBULIN RATIO 1.3 1.0 - 2.5 (calc) YourPOV.TVAnthony Newell BILIRUBIN TOTAL 0.7 0.2 - 1.2 mg/dL [facility] Call BritanniaAnthony Newell ALKALINE PHOSPHATASE 60 36 - 130 U/L [facility] YusufAnthony Newell AST 21 10 - 40 U/L [facility] Call BritanniaAnthony Newell ALT 29 9 - 46 U/L YourPOV.TVAnthony mccoy Reece Comment: Test Performed at: [place] [address] [place] ??[phone] Maribell Carver Blood 03/09/2024 11:1 4 AM HOMEBIRTH MIDWIFE 03/10/2024 12:45 AM HOMEBIRTH MIDWIFE us Vanda Perdue ANP CHEMISTRY ORDERABLES Final R esult [facility] [phone] [place] [address] [place] [phone] * URINE CULTURE (03/08/2024 3:07 PM HOMEBIRTH MIDWIFE) URINE CULTURE SEE NOTE Kizzy GoldbergAnthony Newell Comment: ??CULTURE, URINE, ROUTINE ?Micro Number: ?[id number] ??Test Status: ? Final ??Specimen Source: ?? Urine, clean catch ??Specimen Quality: ??Adequate ??Result: ?No Growth Test Performed at: [facility] [address] [address] [place] ??[phone] Maribell Carver Urine URINE SPECIMEN OBTAINED BY CLEAN CATCH PROCEDURE / Unknown 03/08/2024 3:07 PM HOMEBIRTH MIDWIFE 03/09/2024 3:11 AM HOMEBIRTH MIDWIFE us Vanda Perdue ANP MICROBIOLOGY - GENERAL ORDER THOMAS Final Result [facility] [phone] [facility] [address] [address] [place] [phone] from Last 3 Months Insurance [employer] ACCESS [facility] Address: [address] [address] [employer]LE[employer] OPEN ACCESS * Guarantor: [employer] W BERNARDINO Z (C) Account Type Relation to Patient Date of Phone Billing Address Corporate Employer ATTN: INGRID MATHEWS [address] [address] [employer] Care Teams School Of Nursing Director Relationship Specialty Start Date End Date Janet Desai MD [address] [place] [address] [place] [address] PCP - General Internal Medicine 03/08/24
--- OUTSIDE RECORDS SUMMARY | 2024-03-27 14:42 | XMS_ITS | Clinical Summary ---
Author Organization [facility] Address [address] [address] Phone Care Team Providers Care Watch Dial Maker Name Role Phone Roland Knight APRN, CNP [...] to complete this topic Insurance Care Teams Watch Dial Maker Relationship Specialty Start Date End Date Roland Knight, VACUUM CLEANER OPERATOR, COMMUNICATIONS PROGRAMMER [address] [place] [address] PCP - General Advanced Practice Nurse 06/14/23
--- OUTSIDE RECORDS SUMMARY | 2024-03-27 14:42 | XMS_ITS | CONTINUITY OF CARE DOCUMENT ---
Author Name artemio ulloa Address Unknown Organization [facility] Address [address] [place] [address] [address] [place] [address] Phone [phone] Care Team Providers Care Night Warehouse Selector Name Role Phone Jus Arango MD Unavailable TALYA PIMENTEL MD Unavailable TALYA PIMENTEL MD Unavailable INSURANCE PROVIDERS Payer name Policy type / Coverage type [place] red constitution party ID NATIONAL EMPLOYEE BENEFITS [employer] [id number]
--- OUTSIDE RECORDS SUMMARY | 2024-03-27 14:42 | XMS_ITS | Encounter Summary ---
Author Organization [facility] Address [address] [place] [address] Care Team Providers Care Special Education Teachers Name Role Phone Janet Desai MD Primary Care Provider [phone] Encounter Details Date Type Department Care Team ([facility] Contact Info) Description 03/16/2024 Results Follow-Up [facility] at Work [employer] [place] [address] [place] [address] Vanda Perdue, ANP [address] [facility] [employer] [facility] [address] [place] [address] Social History Tobacco Use Types Packs/Day Years Used Date Smoking Tobacco: Never Smokeless Tobacco: Never Alcohol Use Standard Drinks/Week Comments Yes 0 (1 standard drink = 0.6 oz pur e alcohol) Sex and Gender Information Value Date Recorded Sex Assigned at Not on file Legal Sex Male 9:32 AM REMEDIAL READING TEACHER Gender Identity Not on file Sexual Orientation Not on file documented as of this encounter Plan of Treatment Upcoming Encounters Date Type Department Care Team (Late Contact Info) Description 03/27/2024 2:45 PM REMEDIAL READING TEACHER Office Visit [facility] Oncology and Hematology - [place] [address] [place] [address] True Wilson MD [address] [facility] [address] [place] [address] documented as of this encounter Visit Diagnoses Not on filedocumented in this encounter Care Teams Special Education Teachers Relationship Specialty Start Date End Date Janet Desai MD [address] [place] [address] [place] [address] PCP - General Internal Medicine 03/08/24 documented as of this encounter
[2024-03-27 14:46] LABS: Basophils Percent Auto 0.4 % (0.2-1.2); Eosinophils Absolute Auto 0.1 K/mm3 (0-0.3); Eosinophils Percent Auto 1.4 % (0-4.4); Hematocrit 42.5 % (42.0-52.0); Hemoglobin 14.3 g/dL (14.0-18.0); Immature Granulocyte Absolute 0.02 K/mm3 (0.00-0.031); Immature Granulocyte Percent A 0.2 % (0-0.5); Lymphocytes Absolute Auto 3.32 K/mm3 (0.9-3.2); Lymphocytes Percent Auto 39.2 % (18.3-44.2); Mean Corpuscular HGB Conc 33.6 g/dl (32-36); Mean Corpuscular Hemoglobin 28.8 pg (26-34); Mean Corpuscular Volume 85.5 fl (80-100); Mean Platelet Volume 10.2 fl (7.4-10.4); Monocytes Absolute Auto 0.5 K/mm3 (0.1-0.6); Monocytes Percent Auto 5.7 % (2.6-8.5); Neutrophils Absolute Auto 4.5 K/mm3 (1.3-6.7); Neutrophils Percent Auto 53.1 % (45.5-73.1); Platelet Count Result 211 k/mm3 (150-375); Red Blood Count 4.97 M/mm3 (4.6-6.20); Red Cell Distribution Width 12.5 % (11.5-14.5); White Blood Count 8.5 K/mm3 (4.5-10.0)
[2024-03-27 15:52] LABS: Blood Urea Nitrogen 6 mg/dL (8-26); Carbon Dioxide 29 mmol/L (22-30); Chloride 99 mmol/L (98-109); Estimated Glomerular Filt Rate 57; Glucose 82 mg/dL (70-105); Potassium 3.9 mmol/L (3.5-4.9); Sodium 139 mmol/L (138-146)
[2024-03-27 16:52] LABS: Alanine Aminotransferase 23 U/L (6-50); Albumin Level 4.4 g/dL (3.5-5.1); Alkaline Phosphatase 64 U/L (38-126); Anion Gap 8 mmol/L (4-12); Aspartate Amino Transferase 50 U/L (17-59); Bilirubin,Total 0.6 mg/dL (0.2-1.3); Blood Urea Nitrogen 8 mg/dL (9-20); Calcium 9.1 mg/dL (8.4-10.2); Carbon Dioxide 30 mmol/L (22-30); Chloride 101 mmol/L (98-107); Estimated Glomerular Filt Rate > 60; Glucose 80 mg/dL (65-110); Sodium 139 mmol/L (137-145)
[2024-03-27 17:57] LABS: Folic Acid 4.5 ng/mL (2.76->20)
== END 2024-03-27 14:38 | disposition home or self-care (01) ==
PROVIDERS: PCP Nurse Practitioner; Visit Provider Internal Medicine Hematology & Oncology
DX: D64.9 Anemia, unspecified (principal)
CPT/HCPCS: 36415; 80047; 80053; 82607; 82746; 84443; 85025

== ENCOUNTER 2024-05-21 11:58 | Outpatient (CLI) | payer OTHER, SELFPAY ==
[2024-05-21 12:23] LABS: Hemoglobin 14.1 g/dL (14.0-18.0); Mean Corpuscular HGB Conc 33.6 g/dl (32-36); Mean Corpuscular Hemoglobin 28.9 pg (26-34); Mean Corpuscular Volume 86.1 fl (80-100); Mean Platelet Volume 10.9 fl (7.4-10.4); Platelet Count Result 150 k/mm3 (150-375); Red Blood Count 4.88 M/mm3 (4.6-6.20); Red Cell Distribution Width 12.4 % (11.5-14.5); White Blood Count 6.7 K/mm3 (4.5-10.0)
[2024-05-21 12:34] LABS: Prothrombin Time 13.6 Seconds (11.1-14.7)
[2024-05-21 12:55] LABS: Alanine Aminotransferase 25 U/L (6-50); Albumin Level 4.5 g/dL (3.5-5.1); Alkaline Phosphatase 64 U/L (38-126); Anion Gap 10 mmol/L (4-12); Aspartate Amino Transferase 31 U/L (17-59); Bilirubin,Total 0.2 mg/dL (0.2-1.3); Blood Urea Nitrogen 9 mg/dL (9-20); Carbon Dioxide 29 mmol/L (22-30); Chloride 101 mmol/L (98-107); Estimated Glomerular Filt Rate > 60; Glucose 103 mg/dL (65-110); Potassium 4.1 mmol/L (3.4-5.0); Sodium 140 mmol/L (137-145)
--- OUTSIDE RECORDS SUMMARY | 2024-05-21 13:19 | XMS_ITS | Encounter Summary ---
Author Organization [facility] Address [address] [place] [address] Care Team Providers Care Clinical Program Manager Name Role Phone Janet Desai MD Primary Care Provider [phone] Encounter Details Date Type Department Care Team (Latest Contact Info) Description 03/13/2024 Results Follow-Up [facility] at [facility] [employer] [place] [address] [place] [address] Vanda Perdue ANP [address] [facility] [address] [place] [address] HEMOGLOBIN A1C, COMPREHENSIVE METABOLIC PANEL, CBC WITH DIFFERENTIAL, Additional followed-up results: 2 Social History Tobacco Use Types Packs/Day Years Used Date Smoking Tobacco: Never Smokeless Tobacco: Never Alcohol Use Standard Drinks/Week Comments Yes 0 (1 standard drink = 0.6 oz pur e alcohol) Sex and Gender Information Value Date Recorded Sex Assigned at Not on file Legal Sex Male 9:32 AM DROSOPHERE OPERATOR Gender Identity Not on file Sexual Orientation Not on file documented as of this encounter Miscellaneous Notes * Result Encounter Note - Vanda Perdue ANP - 03/13/2024 7:20 AM DROSOPHERE OPERATOR Contact patient regarding result. Urine did not show any infection. Digestive enzymes are normal, including liver and pancreas. Blood sugar in prediabetic range. Not cause of his illness. Will need to discuss in future. Infection levels are normal but platelet count is low. This is new finding. Recommend repeat CBC today or tomorrow See telephone encounter. OPHERE OPERATOR documented in this encounter Plan of Treatment Upcoming Encounters Date Type Department Care Team (Late st Contact Info) Description 09/25/2024 3:30 PM CDT Office Visit [facility] Oncology and Hematology - [place] [address] [facility] [address] [place] [address] True Wilson MD [address] [facility] [address] [place] [address] documented as of this encounter Visit Diagnoses Diagnosis Prediabetes- Primary Other abnormal glucose documented in this encounter Care Teams Clinical Program Manager Relationship Specialty Start Date End Date Janet Desai MD [address] [place] [address] PCP - General Internal Medicine 03/08/24 documented as of this encounter
--- OUTSIDE RECORDS SUMMARY | 2024-05-21 13:19 | XMS_ITS | Encounter Summary ---
Author Organization [facility] Address [address] [place] [address] Care Team Providers Care Dishwasher Name Role Phone Janet Desai MD Primary Care Provider [phone] Encounter Details Date Type Department Care Team (Latest Contact Info) Description 03/16/2024 Results Follow-Up [facility] at [facility] [employer] [place] [address] [address] Vanda Perdue, ANP [address] [facility] Ana Maríaflorencia Werner [facility] [address] [place] [address] CBC WITH DIFFERENTIAL Social History Tobacco Use Types Packs/Day Years Used Date Smoking Tobacco: Never Smokeless Tobacco: Never Alcohol Use Standard Drinks/Week Comments Yes 0 (1 standard drink = 0.6 oz pur e alcohol) Sex and Gender Information Value Date Recorded Sex Assigned at Not on file Legal Sex Male 9:32 AM COREMAKER FLOOR Gender Identity Not on file Sexual Orientation Not on file documented as of this encounter Plan of Treatment Upcoming Encounters Date Type Department Care Team (Late st Contact Info) Description 09/25/2024 3:30 PM CDT Office Visit [facility] Oncology and Hematology - [place] [address] [facility] [address] [place] [address] True Wilson MD [address] [facility] [address] [place] [address] documented as of this encounter Visit Diagnoses Not on filedocumented in this encounter Care Teams Dishwasher Relationship Specialty Start Date End Date Janet Desai MD [address] [place] [address] PCP - General Internal Medicine 03/08/24 documented as of this encounter
--- OUTSIDE RECORDS SUMMARY | 2024-05-21 13:19 | XMS_ITS | Clinical Summary ---
Author Organization [facility] Mayvenn MINDEN Address [address] [place] [id number] Care Team Providers Care [employer] Area Supervisor Name Role Phone Janet Desai MD Primary Care Provider [phone] Allergies Active Allergy Reactions Criticality Noted Date Comments Iodinated Contrast Media Anaphylaxis High 02/26/2020 Medications dextroamphetam ine-amphetamin e (ADDERALL) 20 mg tabletIndicati ons:Anxiety state,Attentio n deficit disorder (ADD) in adult Take one tablet early afternoon 30 Tablet 1 Active eszopiclone (LUNESTA) 3 mg Tablet Take 3 mg by mouth nightly as needed for Insomnia. Active dextroamphetam ine-amphetamin e (Mydayis) 50 mg capsule, ER triphasic 24 hr Take 50 mg by mouth daily. Active lumateperone (Caplyta) 42 mg Capsule Take 42 mg by mouth daily. Active Sublocade solution, extended rel syringe Inject 300 mg by subcutaneous injection every 28 days. 4 Active buprenorphine- nalOXone (SUBOXONE FILM) 4-[address] 1 Strip under tongue 1 time daily as needed. 4 Active citalopram (CeleXA) 40 mg tablet Take 40 mg by mouth daily. 4 Active Mavyret 100-40 mg Tablet Take 3 Tablets by mouth daily with supper. 4 Active hydroCHLOROthi azide 12.5 mg tablet Take 12.5 mg by mouth daily. 4 Active methylphenidat e ER 54 mg tablet,extende d release 24 hr Take 54 mg by mouth daily. 4 Active testosterone cypionate (DEPO-TESTOSTE SHAKIRA) 200 mg/mL Oil Inject 200 mg by intramuscular injection every 7 days. 4 Active Linzess 72 mcg Capsule capsule Take 72 mcg by mouth daily before breakfast. 4 Active metoprolol succinate (TOPROL XL) 50 mg Extended Release 24 hour tablet Take 50 mg by mouth daily. 4 Active albuterol sulfate HFA 90 mcg/actuation aerosol inhaler Take 2 Puffs by inhalation. 5 02/23/19 26 Active Active Problems Problem Noted Date Diagnosed Date Splenomegaly mild on CT scan 07/2023 and 01/202403/15/2024 Prediabetes 03/13/2024 Bipolar disorder, unspecified 09/28/2023 History of palpitations 10/22/2022 Mixed anxiety and depressive disorder 10/22/2022 History of narcotic addiction 10/22/2022 Overview (03/08/2024): In remission since 2020. Seen at [facility] for addition and psych needs. History of ETOH abuse 10/22/2022 Overview (03/08/2024): In remission since 2020. Seen at [facility] for addition and psych needs. Vitamin D insufficiency 10/22/2022 Attention deficit disorder (ADD) in adult 2022 Hepatitis C 10/21/2022 Overview (03/08/2024): Current treatment per Dr. Simon. [facility]. Completed 01/2024. Panic attacks 02/26/2020 Resolved Problems Problem Noted Date Diagnosed Date Resolved Date Hepatitis C antibody test positive 10/21/2022 10/21/2022 Anxiety state 02/26/2020 10/22/2022 Precordial pain 02/26/2020 10/21/2022 Closed nondisp fracture of r ight medial malleolus with routine healing 10/21/2014 5 Encounters Date Type Department Care Team Description 05/11/2024 Telephone [facility] at [facility] [employer] [place] [address] [place] [address] Janet Desai MD Follow up 04/17/2024 External Device Data [facility] ABSTRACTION Provider, Abstract 04/12/2024 4:30 PM LIQUOR COMMISSIONER Telephone Check Up [facility] Oncology [facility] [address] [place] [id number] True Wilson MD Other fatigue (Primary Dx); Chronic anemia 03/27/2024 2:45 PM LIQUOR COMMISSIONER Office Visit [facility] Oncology [facility] [address] [place] [id number] True Wilson MD Other fatigue (Primary Dx); Other secondary thrombocytopenia 03/16/2024 9:00 AM LIQUOR COMMISSIONER Procedure visit [facility] at [facility] [address] [place] [address] Left-sided chest pain 03/16/2024 Orders Only Initial Department [address] [place] [address] Dr HARDY: [place] [address] Provider, Historical 03/16/2024 Results Follow-Up [facility] at [facility] [place] [employer] [place] [address] [place] [address] Janet Desai MD D-DIMER 03/16/2024 Results Follow-Up [facility] at [facility] [place] [employer] in [employer] [place] [address] [place] [address] Vanda Perdue ANP CBC WITH DIFFERENTIAL 03/16/2024 Lab Requisition [facility] [address] [place] [address] Vanda Perdue ANP 03/15/2024 3:00 PM LIQUOR COMMISSIONER Office Visit [facility] at [facility] [employer] [place] [address] [place] [address] Vanda Perdue, RICHARD Left-sided chest pain (Primary Dx); Anxiety state; History of hepatitis C; Splenomegaly mild on CT scan 07/2023 and 01/2024; Prediabetes 03/14/2024 11:00 AM LIQUOR COMMISSIONER Procedure visit [place] [address] [place] [place] [address] Thrombocytopenia 03/14/2024 External Device Data [facility] ABSTRACTION Provider, Abstract 03/14/2024 External Device Data [place] ABSTRACTION Provider, Abstract 03/13/2024 Telephone [facility] at [place] [address] [place] [address] Vanda Perdue, RICHARD Results 03/13/2024 Results Follow-Up [place] [address] [place] [address] Vanda Perdue, RICHARD HEMOGLOBIN A1C, COMPREHENSIVE METABOLIC PANEL, CBC WITH DIFFERENTIAL, Additional followed-up results: 2 03/09/2024 11:00 AM LIQUOR COMMISSIONER Procedure visit [place] [address] [place] [address] Polydipsia; Abdominal pain, generalized 03/08/2024 3:00 PM LIQUOR COMMISSIONER Office Visit [place] [address] [place] [address] Vanda Perdue, RICHARD Abdominal pain, generalized (Primary Dx); Chest wall pain; Urine frequency; Polydipsia; Declined influenza vaccine; History of ETOH abuse; History of narcotic addiction (CMS/HCC); Hepatitis C virus infection without hepatic coma, unspecified chronicity; Screening for condition 03/07/2024 External Device Data [employer] ABSTRACTION Provider, Abstract from Last 3 Months Immunizations Immunization Administration Dates Next Due (ADACEL/BOOSTRIX)(10 YR UP) TDAP VACCINE, 0.5ML, IM 10/21/2022 Family History Medical History Relation Name Comments No Known Problems Brother 1 No Known Problems Brother 2 No Known Problems Brother 3 No Known Problems Daughter Heart Attack Father fatal [place] Alcohol abuse Maternal Grandfather COPD Maternal Grandmother [...] on file Legal Sex Male 9:32 AM LIQUOR COMMISSIONER Gender Identity Not on file Sexual Orientation Not on file Last Filed Vital Signs Vital Sign Reading Time Taken Comments Blood Pressure 174/98 03/27/2024 2:57 PM LIQUOR COMMISSIONER Pulse 68 03/27/2024 2:55 PM LIQUOR COMMISSIONER Temperature 36.2 C (97.2 F) 03/27/2024 2:55 PM LIQUOR COMMISSIONER Respiratory Rate 16 03/27/2024 2:55 PM LIQUOR COMMISSIONER Oxygen Saturation 97% 03/27/2024 2:55 PM LIQUOR COMMISSIONER Inhaled Oxygen Concentration - - Weight 123.4 kg (272 lb) 03/27/2024 2:55 PM LIQUOR COMMISSIONER Height 182.9 cm (6') 03/15/2024 2:43 PM LIQUOR COMMISSIONER Body Mass Index 36.89 03/15/2024 2:43 PM LIQUOR COMMISSIONER Plan of Treatment Upcoming Encounters Date Type Department Care Team (Late st Contact Info) Description 09/25/2024 3:30 PM CDT Office Visit [facility] Oncology and Hematology [facility] [address] [facility] [address] [place] [address] True Wilson MD [address] [facility] [address] [place] [address] Health Maintenance Due Date Last [...] Comments PLEASE NOTE Routine 03/16/2024 7:19 AM LIQUOR COMMISSIONER D-DIMER Stat 03/16/2024 7:19 AM LIQUOR COMMISSIONER VA ECG ROUTINE ECG W/LEAST 12 LDS W/I&R Routine 03/15/2024 3:00 PM LIQUOR COMMISSIONER Left-sided chest pain CBC WITH DIFFERENTIAL Stat 03/14/2024 11:06 AM LIQUOR COMMISSIONER Thrombocytopenia LIPASE Routine 03/09/2024 11:14 AM LIQUOR COMMISSIONER Abdominal pain, generalized C-REACTIVE PROTEIN Routine 03/09/2024 11 :14 AM LIQUOR COMMISSIONER Abdominal pain, generalized CBC WITH DIFFERENTIAL Routine 03/09/2024 11:14 AM LIQUOR COMMISSIONER Abdominal pain, generalized COMPREHENSIVE METABOLIC PANEL Routine 03/09/2024 11:14 AM LIQUOR COMMISSIONER Abdominal pain, generalized HEMOGLOBIN A1C Routine 03/09/2024 11:14 AM LIQUOR COMMISSIONER Polydipsia URINE CULTURE Routine 03/08/2024 3:07 PM LIQUOR COMMISSIONER Screening for condition from Last 3 Months Results * PLEASE NOTE (03/16/2024 7:19 AM LIQUOR COMMISSIONER) PLEASE NOTE: [employer] darius Newell Comment: Detailed Reference Laboratory Report to Follow Test Performed at: [place] [address] [address] [place] [address] A[employer]Kaseyu Thi Vo 03/16/2024 7:19 AM LIQUOR COMMISSIONER 03/16/2024 10:56 AM LIQUOR COMMISSIONER us Vanda Perdue ANP CHEMISTRY ORDERABLES Final R esult [facility] [phone] [facility] [place] [address] [address] [place] [address] * (ABNORMAL) D-DIMER (03/16/2024 7:19 AM LIQUOR COMMISSIONER) D-DIMER QUANT 0.95(H) <0.50 ug/mL FEU 03/16/2024 12:07 PM [facility] Pager[employer] [facility] Blood Collection / Unknown 03/16/2024 7:19 AM LIQUOR COMMISSIONER 03/16/2024 11:28 AM LIQUOR COMMISSIONER Narrative [facility] - 03/16/2024 12:07 PM [facility] D-Dimer assay cutoff value for exclusion of DVT and/or PE is <0.50 ug/mL FEU. us Vanda RAMOS HEMATOLOGY ORDERABLES Final Result [facility] CLIA# [id number] [address] [facility] [place] [address] * VA ECG ROUTINE ECG W/LEAST 12 LDS W/I&R (03/15/2024 3:00 PM LIQUOR COMMISSIONER) Narrative [facility] [place] - 03/15/2024 3:00 PM LIQUOR COMMISSIONER Vanda Perdue ANP 03/15/2024 4:17 PM EKG 12-LEAD Date/Time: 03/15/2024 3:00 PM Performed by: Vanda Perdue ANP Authorized by: Vanda Perdue ANP Comparison: compared with previous ECG Similar to previous ECG Comparison to previous EC in chart. Rhythm: sinus rhythm Rate: normal BPM: 94 QRS axis: normal Conduction: conduction normal Other findings: LVH Clinical impression: normal ECG Comments: LVH noted. V leads. No ischemic changes. No peaked T waves. No VA depression. Procedure Note Vanda Perdue ANP - 03/15/2024 3:19 PM CST Images from the original note were not included. HISTORY OF PRESENT ILLNESS Brian Charles Watkins Jr., a 38 y.o. male presents with [...] that might causewithdrawal like symptoms. CXR at [facility] normal 02/20. See media. REVIEW OF SYSTEMS [...] Size: Large Adult) Pulse 95 Temp 97.7 F (36.5 C) (Tympanic) Resp 20 Ht 6' (1.829 m) Wt 127.9 kg (282 lb) SpO2 98% BMI38.25 kg/m Physical Exam Vitals reviewed. Constitutional: General: He [...] No ischemic changes. No peaked T waves.No VA depression. Assessment ASSESSMENT and PLAN: 1. Left-sided [...] with any orderedtest results. RICHARD Trevino 03/15/2024 [facility] [address] [address] Some of this encounter may have been transcribed using [employer] computerized voice recognition without a human bridge ironworker helper.This report may or may not have been adjusted for typographical or medicaland syntax errors. us Vanda RAMOS ECG ORDERABLES Final Result [facility] [[email or web address]] CLIA# [id number] [address] [address] * CBC WITH DIFFERENTIAL (03/14/2024 11:06 AM LIQUOR COMMISSIONER) Only the most recent of2 resultswithin the [...] t Reece NEUTROPHIL 50.9 % [facility] darius Reece LYMPHOCYTES 39.3 % [facility] MONOCYTE 7.6 % [facility] EOSINOPHILS 1.9 % [facility] BASOPHILS 0.3 % [facility] Comment: Test Performed at: [place] [address] [address] [place] [phone] [facility] Blood 03/14/2024 11:0 6 AM LIQUOR COMMISSIONER 03/14/2024 12:52 PM LIQUOR COMMISSIONER Vanda Perdue ANP HEMATOLOGY ORDERABLES Final Result Performing Organization Address City/[facility]/ZIP Code Phone Number [facility] [phone] [place] [address] [address] [place] [address] * C-REACTIVE PROTEIN (03/09/2024 11:14 AM LIQUOR COMMISSIONER) CRP <5.0 <8.0 mg/L [facility] StadiusAnthony Newell Comment: Test Performed at: [place] [address] [address] [place] [address] [facility] Blood 03/09/2024 11:1 4 AM LIQUOR COMMISSIONER 03/10/2024 12:45 AM LIQUOR COMMISSIONER us Vanda Perdue ANP CHEMISTRY ORDERABLES Final R esult [facility] [phone] [place] [address] [address] [place] [address] * LIPASE (03/09/2024 11:14 AM LIQUOR COMMISSIONER) LIPASE 10 7 - 60 U/L [facility] StadiusS darius Newell Comment: Test Performed at: [place] [address] [address] [place] [phone] [facility] Blood 03/09/2024 11:1 4 AM LIQUOR COMMISSIONER 03/10/2024 12:45 AM LIQUOR COMMISSIONER Vanda Perdue ANP CHEMISTRY ORDERABLES Final R [facility] Performing Organization Address [facility] Code Phone Number [facility] [phone] [place] [address] [place] [address] * (ABNORMAL) HEMOGLOBIN A1C (03/09/2024 11:14 AM LIQUOR COMMISSIONER) HEMOGLOBIN A1C 5.8(H) <5.7 % of total Hgb [employer] darius Newell Comment: For someone without known diabetes, [...] children. ESTIMATED AVERAGE GLUCOSE (MG/DL) 120 mg/dL [employer] darius Newell ESTIMATED AVERAGE GLUCOSE (MMOL/L) 6.6 mmol/L [employer] darius Newell Comment: Test Performed at: [place] [address] [place] [address] Maribell Carver Blood 03/09/2024 11:1 4 AM LIQUOR COMMISSIONER 03/10/2024 12:44 AM LIQUOR COMMISSIONER Vanda Perdue ANP CHEMISTRY ORDERABLES Final R [facility] Performing Organization Address City/[facility] Code Phone Number [facility] [phone] [facility] [place] [address] [place] [address] * (ABNORMAL) COMPREHENSIVE METABOLIC PANEL (03/09/2024 11:14 AM LIQUOR COMMISSIONER) GLUCOSE 142(H) 65 - 99 mg/dL [employer] Newell Comment: Fasting reference interval For someone without known diabetes, a glucose value >125 mg/dL indicates that they may have diabetes and this should be confirmed with a follow-up test. BUN 7 7 - 25 mg/dL [employer] darius Newell CREATININE 1.01 0.60 - 1.26 mg/dL Kizzy GoldbergAnthony Newell GFR 99 > OR = 60 mL/min/1. 73m2 Kizzy GoldbergAnthony Newell BUN/CREAT RATIO SEE NOTE: 6 - 22 (calc) Kizzy Newell Comment: Not Reported: BUN and Creatinine are within reference range. SODIUM 137 135 - 146 mmol/L Kizzy GoldbergAnthony Newell POTASSIUM 3.9 3.5 - 5.3 mmol/L Kizzy GoldbergAnthony Newell CHLORIDE 102 98 - 110 mmol/L Kizzy GoldbergAnthony Newell CO2 27 20 - 32 mmol/L Kizzy GoldbergAnthony Newell CALCIUM 9.0 8.6 - 10.3 mg/dL Kizzy GoldbergAnthony Newell TOTAL PROTEIN 7.0 6.1 - 8.1 g/dL Kizzy GoldbergAnthony Newell ALBUMIN 4.0 3.6 - 5.1 g/dL Kizzy GoldbergAnthony Newell GLOBULIN 3.0 1.9 - 3.7 g/dL (calc) Kizzy GoldbergAnthony Newell ALBUMIN/GLOBULIN RATIO 1.3 1.0 - 2.5 (calc) [employer] YusufAnthony Newell BILIRUBIN TOTAL 0.7 0.2 - 1.2 mg/dL [facility] YusufAnthony Newell ALKALINE PHOSPHATASE 60 36 - 130 U/L [employer] YusufAnthony Newell AST 21 10 - 40 U/L [employer] YusufAnthony Newell ALT 29 9 - 46 U/L Adela[facility]Anthony Newell Comment: Test Performed at: [place] [address] [place] [address] AuryCieloLindsey Carver Blood 03/09/2024 11:1 4 AM LIQUOR COMMISSIONER 03/10/2024 12:45 AM LIQUOR COMMISSIONER us Vanda Perdue [facility] CHEMISTRY ORDERABLES Final R esult [facility] [phone] [facility] [place] [address] [address] [place] [phone] * URINE CULTURE (03/08/2024 3:07 PM LIQUOR COMMISSIONER) URINE CULTURE SEE NOTE Kizzy GoldbergAnthony Newell Comment: CULTURE, URINE, ROUTINE Micro Number: [id number] Test Status: Final Specimen Source: Urine, clean catch Specimen Quality: Adequate Result: No Growth Test Performed at: [facility] [address] [address] [place] [phone] Maribell Carver Urine URINE SPECIMEN OBTAINED BY CLEAN CATCH PROCEDURE / Unknown 03/08/2024 3:07 PM LIQUOR COMMISSIONER 03/09/2024 3:11 AM LIQUOR COMMISSIONER us Vanda Perdue ANP MICROBIOLOGY - GENERAL ORDER THOMAS Final Result [facility] [phone] [facility] [address] [address] [place] [phone] from Last 3 Months [facility] ALLEGIANCE OPEN ACCESS Care Teams Retail Chain Store Area Supervisor Relationship Specialty Start Date End Date Janet Desai MD [address] [place] [address] PCP - General Internal Medicine 03/08/24
--- OUTSIDE RECORDS SUMMARY | 2024-05-21 13:19 | XMS_ITS | Clinical Summary ---
Author Organization [facility] Address [address] [place] [address] Care Team Providers Care Policy Analyst Name Role Phone Roland Knight NP Primary Care Provider [phone]- [phone] Allergies Active Allergy Reactions Criticality Noted Date [...] 3 tablets (54 mg total) by mouth transport nurse before breakfast Active metoprolol XL (TOPROL-XL) 50 [...] with albuterol inhaler 1 each 5 Active Active Problems No known active problems Encounters Date Type Department Care Team Description 05/10/2024 5:03 PM CDT - 05/10/2024 9:18 PM CDT Emergency [facility] Emergency Department [address] [place] [address] Chest pain, unspecified type (Primary Dx) Discharge Disposition: Discharge to home or self care 03/16/2024 9:02 PM GRANT OFFICER - 03/17/2024 3:05 AM GRANT OFFICER Emergency [facility] Emergency Department [address] [place] [address] Nikkie Marmolejo MD Generalized weakness (Primary Dx); Thrombocytopenia; Family history of autoimmune disorder Discharge Disposition: Discharge to home or self care 02/24/2024 4:15 PM GRANT OFFICER Office Visit [facility] at [address] [place] [phone] Ana Anne NP Lower respiratory infection (Primary [...] making you feel afraid or unsafe? Denies 05/10/2024 Sex and Gender Information Value Date Recorded Sex Assigned at Not on file Legal Sex Male 4:57 AM GRANT OFFICER Gender Identity Not on file Sexual Orientation Not on file Obstetrics History Last Filed Vital Signs Vital Sign Reading Time Taken Comments Blood Pressure 148/83 05/10/2024 6:40 PM CDT Pulse 63 05/10/2024 6:52 PM CDT Temperature 36.2 C (97.2 F) 05/10/2024 4:43 PM CDT Respiratory Rate 13 05/10/2024 6:40 PM CDT Oxygen Saturation 96% 05/10/2024 6:40 PM CDT Inhaled Oxygen Concentration - - Weight 120.2 kg (265 lb) 05/10/2024 4:43 PM CDT Height 182.9 cm (6') 05/10/2024 4:43 PM CDT Body Mass Index 35.94 05/10/2024 4:43 PM CDT Plan of Treatment Health Maintenance [...] Procedure Name Priority Date/Time Associated Diagnosis Comments TROPONIN T HIGH-SENSITIVITY 2-HOUR Timed 05/10/2024 7:01 PM CDT XR CHEST 1 VIEW ED 05/10/2024 5:07 PM CDT EGFR STAT 05/10/2024 4:51 PM CDT DIFFERENTIAL AUTO STAT 05/10/2024 4:5 1 PM CDT TROPONIN T HIGH-SENSITIVITY SERIES (BASELINE, 2HR, 4HR, 6HR) STAT 05/10/2024 4:51 PM CDT COMPREHENSIVE METABOLIC PANEL STAT 05/10/2024 4:51 PM CDT CBC WITH AUTO DIFFERENTIAL STAT 05/10/2024 4:51 PM CDT ECG 12-LEAD STAT 05/10/2024 4:44 PM CDT XR CHEST PA LATERAL 2 VIEWS ED 03/16/2024 11:20 PM GRANT OFFICER ECG 12-LEAD STAT 03/16/2024 11:00 PM GRANT OFFICER PROTIME-INR STAT 03/16/2024 10:55 PM GRANT OFFICER APTT STAT 03/16/2024 10:55 PM GRANT OFFICER D-DIMER, QUANTITATIVE STAT 03/16/2024 10:55 PM GRANT OFFICER PRO B-TYPE NATRIURETIC PEPTIDE STAT 03/16/2024 10:55 PM GRANT OFFICER TROPONIN I HIGH-SENSITIVITY SERIES (BASELINE, 2HR, 4HR, 6HR) STAT 03/16/2024 10:55 PM GRANT OFFICER URINALYSIS AND REFLEX TO MICROSCOPIC STAT 03/16/2024 10:55 PM GRANT OFFICER EGFR STAT 03/16/2024 3:41 PM GRANT OFFICER DIFFERENTIAL AUTO STAT 03/16/2024 3:4 1 PM GRANT OFFICER LIPASE STAT 03/16/2024 3:41 PM GRANT OFFICER COMPREHENSIVE METABOLIC PANEL STAT 03/16/2024 3:41 PM GRANT OFFICER CBC WITH AUTO DIFFERENTIAL STAT 03/16/2024 3:41 PM GRANT OFFICER HEPATITIS C ANTIBODY Routine 09/14/2022 8:25 AM CDT from Last 3 Months or Most Recently Relevant to Health Maintenance Results * Troponin T high-sensitivity 2-hour (05/10/2024 7:01 PM CDT) Trop T hs <6 <=22 ng/L Comment: Interpretive Data For further hscTnT resources including the diagnostic algorithm and an aid in interpretation, copy and paste this link: https://nrl.testcatalog.org/show/hsTrop Current Interpretive Data last revised 2019. Trop T hs delta 0 ng/L [facility] ([place]) Trop T hs interp Insignificant [facility] ([place]) Blood 05/10/2024 7:01 PM CDT 05/10/2024 7:41 PM CDT Artem Soriano MD LAB BLOOD ORDERABLES Final Res ult [facility] ([place]) 1 [facility] Department [place] [address] * XR Chest 1 Vw Portable (if patient condition/safety warrant portable) (05/10/2024 5:07 PM CDT) Anatomical Region Laterality Modality Body, Chest N/A Computed Radiogr aphy 05/10/2024 5:35 PM CDT Narrative 05/10/2024 5:37 PM CDT EXAM DESCRIPTION: XR CHEST 1 VIEW REASON FOR STUDY: chest pain c/o chest pain and weakness since yesterday. Pt reports he is having episodes where he is getting cold sweats and feels like my body is being pulled down like when you ride a roller coaster . Per pt, on medication for irregular heart rate Non smoker TECHNIQUE: Frontal radiographic view(s) of the chest. COMPARISON: 03/16/2024 FINDINGS: No consolidation, pulmonary edema, pleural effusion or pneumothorax. Heart size and mediastinal contours are normal. IMPRESSION: No acute cardiopulmonary abnormality. THIS IS AN ELECTRONICALLY VERIFIED FINAL REPORT 05/10/2024 5:37 PM - Electronically signed by James Lewis M.D. AG: MARK Report ID: [id number] Reading Location: [id number] Procedure Note James Lewis MD - 05/10/2024 EXAM DESCRIPTION: XR CHEST 1 VIEW REASON FOR STUDY: chest pain c/o chest pain and weakness since yesterday. Pt reports he is havingepisodes where he is getting cold sweats and feels like my body is being pulleddown like when you ride a roller coaster . Per pt, on medication forirregular heart rate Non smoker TECHNIQUE: Frontal radiographic view(s) of the chest. COMPARISON: 03/16/2024 FINDINGS: No consolidation, pulmonary edema, pleural effusion or pneumothorax. Heart size and mediastinal contours are normal. IMPRESSION: No acute cardiopulmonary abnormality. THIS IS AN ELECTRONICALLY VERIFIED FINAL REPORT 05/10/2024 5:37 PM - Electronically signed by James Lewis M.D. AG: MARK Report ID: [id number] Reading Location: [id number] Artem Soriano MD IMG XR PROCEDURES Final Result * Troponin T high-sensitivity series (baseline, 2hr, 4hr, 6hr) (05/10/2024 4:51 PM CDT) Trop T hs <6 <=22 ng/L Comment: Interpretive Data For further hscTnT resources including the diagnostic algorithm and an aid in interpretation, copy and paste this link: https://nrl.testcatalog.org/show/hsTrop Current Interpretive Data last revised 2019. Blood 05/10/2024 4:5 1 PM CDT 05/10/2024 5:00 PM CDT Artem Soriano MD LAB BLOOD ORDERABLES Final Res ult [facility] ([place]) [facility] Department of Laboratories [place] [id number] * eGFR (05/10/2024 4:51 PM CDT) Pathologist [facility] eGFR 77 >=60 mL/min/1. 73 m2 Comment: Interpretive Data Reference Interval Normal >/= 90 mL/min/1.73m2 Mildly decreased* 60 - 89 mL/min/1.73m2 Mildly to moderately decreased 45 - 59 mL/min/1.73m2 Moderately to severely decreased 30 - 44 mL/min/1.73m2 Severely decreased 15 - 29 mL/min/1.73m2 Kidney Failure < 15 mL/min/1.73m2 *Relative to young adult level Estimated glomerular [...] interpretive data was last reviewed 2020. Blood 05/10/2024 4:51 PM CDT 05/10/2024 5:00 PM CDT us Artem Soriano MD LAB BLOOD ORDERABLES Final Res ult [facility] ([place]) 1 [facility] Department [place] [address] * (ABNORMAL) Differential, auto (05/10/2024 4:51 PM CDT) Pathologist [facility] Neutrophil abs 6.4 1.5 - 6.5 K/cumm Imm gran abs 0.0 0.0 - 0.1 K/cumm [facility] ([place]) Lymphocyte abs 3.6(H) 0.8 - 3.3 K/cumm [facility] ([place]) Monocyte abs 0.6 0.2 - 0.8 K/cumm [facility] ([place]) Eosinophil abs 0.1 0.0 - 0.5 K/cumm [facility] ([place]) Basophil abs 0.0 0.0 - 0.1 K/cumm [facility] ([place]) Neutrophil pct 59.2 % [facility] ([place]) Comment: Interpretive Data Percent cell count reference ranges are not reported, since discordance with absolute values may lead to misinterpretation of CBC data. Current Interpretive Data was last revised on 2017. Imm gran pct 0.3 % [facility] ([place]) Comment: Interpretive Data Percent cell count reference ranges are not reported, since discordance with absolute values may lead to misinterpretation of CBC data. Current Interpretive Data was last revised on 2017. Lymphocyte pct 33.8 % [facility] ([place]) Comment: Interpretive Data Percent cell count reference ranges are not reported, since discordance with absolute values may lead to misinterpretation of CBC data. Current Interpretive Data was last revised on 2017. Monocyte pct 5.7 % [facility] ([place]) Comment: Interpretive Data Percent cell count reference ranges are not reported, since discordance with absolute values may lead to misinterpretation of CBC data. Current Interpretive Data was last revised on 2017. Eosinophil pct 0.7 % [facility] ([place]) Comment: Interpretive Data Percent cell count reference ranges are not reported, since discordance with absolute values may lead to misinterpretation of CBC data. Current Interpretive Data was last revised on 2017. Basophil pct 0.3 % [facility] ([place]) Comment: Interpretive Data Percent cell count reference ranges are not reported, since discordance with absolute values may lead to misinterpretation of CBC data. Current Interpretive Data was last revised on 2017. Blood 05/10/2024 4:51 PM CDT 05/10/2024 5:00 PM CDT us Artem Soriano MD LAB BLOOD ORDERABLES Final Res ult [facility] ([place]) [facility] Department [place] [address] * (ABNORMAL) CBC with auto differential (05/10/2024 4:51 PM CDT) WBC 10.7(H) 3.8 - 9.9 K/cumm Hgb 15.4 13.0 - 17.5 g/dL [facility] ([place]) Hct 45.6 38.9 - 50.3 % [facility]) Plt 179 150 - 400 K/cumm [facility] ([place]) MPV 11.3 9.1 - 12.3 fL [facility]) RBC 5.39 4.30 - 5.80 M/cumm [facility] ([place]) MCV 84.6 81.3 - 96.4 fL [facility] ([place]) MCH 28.6 27.1 - 33.3 pg [facility]) MCHC 33.8 32.3 - 35.7 g/dL [facility] ([place]) RDW CV 12.7 11.1 - 14.9 % [facility]) RDW SD 38.8 35.7 - 48.1 fL [facility] ([place]) NRBC abs 0.00 0.00 - 0.01 K/cumm [facility] ([place]) Blood Venous blood specimen / Unknown 05/10/2024 4:51 PM CDT 05/10/2024 5:00 PM CDT us Artem Soriano MD LAB BLOOD ORDERABLES Final Res ult [facility] ([place]) [facility] Department of Laboratories [place] [id number] * Comprehensive metabolic panel (05/10/2024 4:51 PM CDT) Pathologist [facility] Sodium 137 135 - 145 mmol/L Potassium, pl 4.2 3.3 - 4.9 mmol/L [facility] ([place]) Chloride 100 97 - 110 mmol/L [facility]) CO2 25 22 - 32 mmol/L [facility] ([place]) Anion gap 11 2 - 15 mmol/L [facility] ([place]) BUN 11 6 - 25 mg/dL [facility]) Creatinine 1.24 0.80 - 1.30 mg/dL [facility]) Glucose 96 70 - 199 mg/dL [facility] ([place]) Comment: Interpretive Data Fasting glucose >/= 126 mg/dl is diagnostic for diabetes. Fasting is defined as no caloric intake [...] 2022. Calcium 9.3 8.5 - 10.3 mg/dL [facility] ([place]) Bilirubin, total 0.5 0.1 - 1.2 mg/dL [facility] ([place]) Protein, pl 8.2 6.5 - 8.5 g/dL [facility]) Albumin 4.7 3.5 - 5.0 g/dL [facility] ([place]) Alk phos 56 40 - 130 Units/L [facility]) ALT 18 7 - 55 Units/L [facility] AST 26 10 - 50 Units/L [facility] ([place]) Comment:Slightly Hemolyzed S pecimen Blood 05/10/2024 4:51 PM CDT 05/10/2024 5:00 PM CDT us Artem Soriano MD LAB BLOOD ORDERABLES Final Res ult [facility] ([place]) [facility] Department [place] [address] * ECG 12 lead (05/10/2024 4:44 PM CDT) 05/10/2024 4:44 PM CDT Narrative [facility] - 05/11/2024 10:24 AM CDT Vent Rate: 72 bpm RR Interval: 831 msec [place] Interval: 154 msec QRS Duration: 94 msec QT Interval: 352 msec QTC Interval: 376 msec P-R-T Heron: 58 - 97 - -24 degrees IMPRESSION: SINUS RHYTHM BORDERLINE RIGHT AXIS DEVIATION [QRS AXIS > 90] Inferior T-wave inversions, consider ischemia ABNORMAL ECG Electronically Signed By: Abraham Nogueira MD Artem Soriano MD ECG ORDERABLES Final Result [facility] * XR Chest PA Lateral 2 Views (03/16/2024 11:20 PM GRANT OFFICER) Anatomical Region Laterality Modality Body, Chest N/A Computed Radiogr aphy 03/16/2024 11:3 1 PM GRANT OFFICER Impressions 03/17/2024 8:28 AM GRANT OFFICER The current study is compared with the prior radiograph dated 05/14/2008. Lungs are clear. No pulmonary consolidation. No pleural effusion or pneumothorax. Normal cardiomediastinal silhouette. Dictated by: Kiana Alegre MD The radiology attending physician has personally reviewed this study, and had reviewed and/or edited this written report and agrees with it. Electronically signed by: Joseluis Amador M.D. Narrative 03/17/2024 8:28 AM GRANT OFFICER EXAMINATION: 2 view chest radiograph Procedure Note [...] Result * ECG 12-LEAD (03/16/2024 11:00 PM GRANT OFFICER) Narrative [facility] - 03/16/2024 11:00 PM GRANT OFFICER Shannan Vieira MD 03/16/2024 11:01 PM ECG 12 lead Date/Time: [...] the ED Comments: Low risk for acs Procedure Note Shannan [...] risk for acs Shannan Vieira MD 03/16/24 [id number] Lupe Jackson MD ECG ORDERABLES [facility] al Result [facility] * Troponin I high-sensitivity series (baseline, 2hr, 4hr, 6hr) (03/16/2024 10:55 PM GRANT OFFICER) Trop I hs <4 <=35 ng/L Comment: Interpretive Data For further hscTnI resources including the diagnostic algorithm and an aid in interpretation, copy and paste this link: https://bjhlab.testcatalog.org/show/hsTrop-1 Current Interpretive Data last revised 2019. Blood 03/16/2024 10:5 5 PM GRANT OFFICER 03/16/2024 11:11 PM GRANT OFFICER us Lupe Jackson MD LAB BLOOD ORDERABLE S Final Result Performing Organization Address City/State/[facility] Co [place] Phone Number [facility] Department [place] [address] * Pro B-type natriuretic peptide (03/16/2024 10:55 PM GRANT OFFICER) NT-proBNP <50 <=300 pg/mL Comment: Interpretive Comments: A. Dyspnea in Acute Care Setting All Ages: < 300 pg/ml, acute heart failure unlikely. < 50 yrs: 300 - 450 pg/ml, further investigation warranted. > 450 pg/ml, acute heart failure likely. 50 - 74 yrs: 300 - 900 pg/ml, further investigation warranted. > 900 pg/ml, acute heart failure likely . > or = 75 yrs: 450 - 1800 pg/ml, further investigation warranted. > 1800 pg/ml, acute heart failure likely. B. Non-acute Setting < 75 yrs < 125 pg/ml, rules out heart failure. > or = 125 pg/ml, further investigation warranted. > or = 75 yrs < 450 pg/ml, rules out heart failure. > or = 450 pg/ml, further investigation [...] Date: 2017. Blood 03/16/2024 10:5 5 PM GRANT OFFICER 03/16/2024 11:11 PM GRANT OFFICER us Lupe Jackson MD LAB BLOOD ORDERABLE S Final Result Performing Organization Address City/State/[facility] Co de Phone Number [facility] Department [place] [address] * Urinalysis reflex to microscopic (03/16/2024 10:55 PM GRANT OFFICER) Color, ur Straw Yellow Clarity, ur Clear Clear [facility] Specific gravity, ur 1.016 1.003 - 1.030 [facility] pH, urine 6.0 [facility] Comment: Interpretive Data U rine pH is affected by diet, medications, systemic acid-base disturbances, and renal tubular function. pH may affect urinary stone formation. For example, urine pH below 6.0 may help reduce the tendency for calcium phosphate stones and pH greater than 6.0 may reduce the tendency for uric acid stone formation. Source: [facility] Current Interpretive Data was last revised on 2017 Protein, ur ql Negative Negative [facility] Glucose, ur ql Negative Negative [facility] Ketones, ur Negative Negative [facility] Bilirubin, ur Negative Negative [facility] Blood, ur Negative Negative [facility] Urobilinogen, ur <2.0 <2.0 mg/dL [facility] Nitrite, ur Negative Negative [facility] Leukocyte esterase, ur Negative Negative [facility] UA reflex comment Reflex conditions for microscopic UA not met. [facility] Urine 03/16/2024 10:5 5 PM GRANT OFFICER 03/16/2024 11:04 PM GRANT OFFICER Nikkie Marmolejo MD LAB URINE ORDERABLES Fin al Result Performing Organization Address [facility] Co de Phone Number [facility] Department [place] [address] * aPTT (03/16/2024 10:55 PM GRANT OFFICER) aPTT 34 28 - 38 sec Comment: Interpretive Data Heparin therapeutic range: 66.0 - 100.0 seconds. Range based on correlation with therapeutic heparin activity range of 0.3 - 0.7 Units/mL. Current interpretive data was last revised on 2022. Blood 03/16/2024 10:5 5 PM GRANT OFFICER 03/17/2024 12:29 AM GRANT OFFICER Nikkie Marmolejo MD LAB BLOOD ORDERABLES Fin al Result Performing Organization Address [facility] de Phone Number [facility] [place] [address] * Protime-INR (03/16/2024 10:55 PM GRANT OFFICER) PT 12.3 9.7 - 13.0 sec INR 1.14 0.90 - 1.20 [facility] Comment: Interpretive data Oral anticoagulant therapeutic ranges: Venous thromboembolism prophylaxis or treatment: 2.0-3.0 CARDIOLOGY Standard range: 2.0-3.0 High-intensity range: 2.5-3.5 Refer to indication-specific guidelines for appropriate target ranges for prosthetic heart valve replacement. Current interpretive data was last revised on 2019. Blood 03/16/2024 10:5 5 PM GRANT OFFICER 03/17/2024 12:29 AM GRANT OFFICER Nikkie Marmolejo MD LAB BLOOD ORDERABLES Fin al Result Performing Organization Address [facility] de Phone Number [facility] [place] [address] * D-dimer, quantitative (03/16/2024 10:55 PM GRANT OFFICER) D-Dimer <215 <=499 ng/mL FEU Comment: Interpretive data FDA approved the D-dimer, in conjunction with a low or moderate pretest probability score, to exclude venous thromboembolic events (VTE) (PE and DVT) in outpatients when the D-dimer result is < 500 ng/ml FEU. Evidence supports using an age-adjusted D-dimer cut-off for outpatients older than 50 (age x 10) to improve specificity without sacrificing sensitivity. Example: age 68, VTE cut-off 680 ng/ml FEU. References; Schmelodie ARIAS et al. Brit Med J. 2013;346:f2492. Sherice GIL et al. Annals Int Med. 2015;163:701-11. Current interpretive data was last revised on 2019. Blood 03/16/2024 10:5 5 PM GRANT OFFICER 03/17/2024 12:29 AM GRANT OFFICER us Lupe Jackson MD LAB BLOOD ORDERABLE S Final Result Performing Organization Address [facility] Co de Phone Number [facility] Department [place] [address] * eGFR (03/16/2024 3:41 PM GRANT OFFICER) eGFR >90 >=60 mL/min/1. 73 m2 Comment: Interpretive Data Reference Interval Normal >/= 90 mL/min/1.73m2 Mildly decreased* 60 - 89 mL/min/1.73m2 Mildly to moderately decreased 45 - 59 mL/min/1.73m2 Moderately to severely decreased 30 - 44 mL/min/1.73m2 Severely decreased 15 - 29 mL/min/1.73m2 Kidney Failure < 15 mL/min/1.73m2 *Relative to young adult level Estimated glomerular filtration rate is determined by the 2020 CKD-EPI equation recommended by the National Kidney Foundation (A Unifying Approach to GFR Estimation: Recommendations of the NKF-ASK Task Force on Reassessing the Inclusion of Race in Diagnosing Kidney Disease, JASN 202). The CKD-EPI equation should not be used for patients with unstable renal function and has not been validated in children and those over 70. Current interpretive data was last reviewed 2020. Blood 03/16/2024 3:41 PM GRANT OFFICER 03/16/2024 4:17 PM GRANT OFFICER us Nikkie Marmolejo MD LAB BLOOD ORDERABLES Fin al Result Performing Organization Address [facility] Co de Phone Number [facility] Department [place] [address] * (ABNORMAL) Differential, auto (03/16/2024 3:41 PM GRANT OFFICER) Neutrophil abs 4.1 1.5 - 6.5 K/cumm Imm gran abs 0.0 0.0 - 0.1 K/cumm [facility] Lymphocyte abs 3.7(H) 0.8 - 3.3 K/cumm [facility] Monocyte abs 0.5 0.2 - 0.8 K/cumm [facility] Eosinophil abs 0.1 0.0 - 0.5 K/cumm [facility] Basophil abs 0.0 0.0 - 0.1 K/cumm [facility] Neutrophil pct 48.7 % [facility] Comment: Interpretive Data Percent cell count reference ranges are not reported, since discordance with absolute values may lead to misinterpretation of CBC data. Current Interpretive Data was last revised on 2017. Imm gran pct 0.2 % [facility] Comment: Interpretive Data Percent cell count reference ranges are not reported, since discordance with absolute values may lead to misinterpretation of CBC data. Current Interpretive Data was last revised on 2017. Lymphocyte pct 43.4 % [facility] Comment: Interpretive Data Percent cell count reference ranges are not reported, since discordance with absolute values may lead to misinterpretation of CBC data. Current Interpretive Data was last revised on 2017. Monocyte pct 5.9 % [facility] Comment: Interpretive Data Percent cell count reference ranges are not reported, since discordance with absolute values may lead to misinterpretation of CBC data. Current Interpretive Data was last revised on 2017. Eosinophil pct 1.4 % [facility] Comment: Interpretive Data Percent cell count reference ranges are not reported, since discordance with absolute values may lead to misinterpretation of CBC data. Current Interpretive Data was last revised on 2017. Basophil pct 0.4 % [facility] Comment: Interpretive Data Percent cell count reference ranges are not reported, since discordance with absolute values may lead to misinterpretation of CBC data. Current Interpretive Data was last revised on 2017. Blood 03/16/2024 3:41 PM GRANT OFFICER 03/16/2024 4:17 PM GRANT OFFICER us Nikkie Marmolejo MD LAB BLOOD ORDERABLES Fin al Result Performing Organization Address City/[facility]/ZIP Co de Phone Number [facility] Department [place] [address] * (ABNORMAL) CBC with auto differential (03/16/2024 3:41 PM GRANT OFFICER) Pathologist [facility] WBC 8.4 3.8 - 9.9 K/cumm Hgb 14.3 13.0 - 17.5 g/dL [facility] Hct 43.6 38.9 - 50.3 % [facility] Plt 114(L) 150 - 400 K/cumm [facility] MPV 12.3 9.1 - 12.3 fL [facility] RBC 5.18 4.30 - 5.80 M/cumm [facility] MCV 84.2 81.3 - 96.4 fL [facility] MCH 27.6 27.1 - 33.3 pg [facility] MCHC 32.8 32.3 - 35.7 g/dL [facility] RDW CV 12.6 11.1 - 14.9 % [facility] RDW SD 38.5 35.7 - 48.1 fL [facility] NRBC abs 0.00 0.00 - 0.01 K/cumm [facility] Blood Venous blood specimen / Unknown 03/16/2024 3:41 PM GRANT OFFICER 03/16/2024 4:17 PM GRANT OFFICER Nikkie Marmolejo MD LAB BLOOD ORDERABLES Fin al Result [facility] Department [place] [address] * Lipase (03/16/2024 3:41 PM GRANT OFFICER) Pathologist [facility] Lipase 12 10 - 99 Units/L Blood Venous blood specimen / Unknown 03/16/2024 3:41 PM GRANT OFFICER 03/16/2024 4:17 PM GRANT OFFICER us Nikkie Marmolejo MD LAB BLOOD ORDERABLES Navarro camarena Result [facility] Department [place] [address] * Comprehensive metabolic panel (03/16/2024 3:41 PM GRANT OFFICER) Sodium 140 135 - 145 mmol/L Potassium, pl 4.0 3.3 - 4.9 mmol/L [facility] Chloride 104 97 - 110 mmol/L [facility] CO2 28 22 - 32 mmol/L [facility] Anion gap 8 2 - 15 mmol/L [facility] BUN 7 6 - 25 mg/dL [facility] Creatinine 1.08 0.80 - 1.30 mg/dL [facility] Glucose 100 70 - 199 mg/dL [facility] Comment: Interpretive Data Fasting glucose >/= 126 mg/dl is diagnostic for diabetes. Fasting is defined as no caloric intake [...] 2022. Calcium 9.1 8.5 - 10.3 mg/dL [facility] Bilirubin, total 0.5 0.1 - 1.2 mg/dL [facility] Protein, pl 7.8 6.5 - 8.5 g/dL [facility] Albumin 4.3 3.5 - 5.0 g/dL [facility] Alk phos 62 40 - 130 Units/L [facility] ALT 30 7 - 55 Units/L [facility] AST 37 10 - 50 Units/L [facility] Blood 03/16/2024 3:41 PM GRANT OFFICER 03/16/2024 4:17 PM GRANT OFFICER Nikkie Marmolejo MD LAB BLOOD ORDERABLES Fin al Result [facility]IS[facility] Department [place] [address] * (ABNORMAL) Hepatitis C antibody (09/14/2022 8:25 AM CDT) Hep C Ab Reactive( A) Nonreactive CHARISSE Comment: Interpretive Data Nonreactive: Antibodies to HCV not detected. Does NOT exclude the possibility of recent exposure to HCV. Equivocal: Equivocal for HCV antibodies. Supplemental molecular testing will be automatically performed to determine infection status in accordance with current CDC screening recommendations. Reactive: Positive for HCV antibodies. This may represent current or past HCV infection. Supplemental molecular testing will be automatically performed to determine current infection status in accordance with current CDC screening recommendations. Interpretive data was last revised on 2019. Blood 09/14/2022 8:25 AM CDT 09/14/2022 12:19 PM CDT Lupe Soler MD LAB MICROBIOLOGY - GENERAL ORDER THOMAS Final Result Performing Organization Address City[facility] Co de Phone Number CHARISSE [address] [facility] Department [place] [address] from Last 3 Months or Most Recently Relevant to Health Maintenance Insurance [employer] Care Teams Policy Analyst Relationship Specialty Start Date End Date Roland Knight NP [address] [place] [place] [address] [place] [address] PCP - General Pain Management 02/24/24
--- OUTSIDE RECORDS SUMMARY | 2024-05-21 13:19 | XMS_ITS | Encounter Summary ---
Author Organization [facility] Address [address] [place] [address] Care Team Providers Care Eeg Tech Name Role Phone Janet Desai MD Primary Care Provider [phone] Encounter Details Date Type Department Care Team (Late Contact Info) Description 03/16/2024 Lab Requisition [facility] Laboratory Services S [facility] [address] [place] [address] Vanda Perdue, ANP [address] [facility] Poornima Werner [facility] [address] [place] [address] Social History Tobacco Use Types Packs/Day Years Used Date Smoking Tobacco: Never Smokeless Tobacco: Never Alcohol Use Standard Drinks/Week Comments Yes 0 (1 standard drink = 0.6 oz pur e alcohol) Sex and Gender Information Value Date Recorded Sex Assigned at Not on file Legal Sex Male 9:32 AM MANAGER OF CORPORATE COMMUNICATIONS Gender Identity Not on file Sexual Orientation Not on file documented as of this encounter Plan of Treatment Upcoming Encounters Date Type Department Care Team (Late Contact Info) Description 09/25/2024 3:30 PM CDT Office Visit [facility] Oncology and Hematology - [place] [address] [place] [address] True Wilson MD [address] [facility] [address] [place] [address] documented as of this encounter Procedures Procedure Name Priority Date/Time Associated Diagnosis Comments D-DIMER Stat 03/16/2024 7:19 AM MANAGER OF CORPORATE COMMUNICATIONS documented in this encounter Results * (ABNORMAL) D-DIMER (03/16/2024 7:19 AM MANAGER OF CORPORATE COMMUNICATIONS) D-DIMER QUANT 0.95(H) <0.50 ug/mL FEU 03/16/2024 12:07 PM MANAGER OF CORPORATE COMMUNICATIONS [facility] Blood Collection / Unknown 03/16/2024 7:19 AM MANAGER OF CORPORATE COMMUNICATIONS 03/16/2024 11:28 AM MANAGER OF CORPORATE COMMUNICATIONS Narrative [facility] - 03/16/2024 12:07 PM MANAGER OF CORPORATE COMMUNICATIONS D-Dimer assay cutoff value for exclusion of DVT and/or PE is <0.50 ug/mL FEU. us Vanda Perdue ANP HEMATOLOGY ORDERABLES Final Result [facility]# [id number] [address] [place] [address] documented in this encounter Visit Diagnoses Not on filedocumented in this encounter Care Teams Eeg Tech Relationship Specialty Start Date End Date Janet Desai MD [address] [place], [place] [address] [place] [address] PCP - General Internal Medicine 03/08/24 documented as of this encounter
--- OUTSIDE RECORDS SUMMARY | 2024-05-21 13:19 | XMS_ITS | Clinical Summary ---
Author Organization [facility] Address [address] [place] [address] Care Team Providers Care Restaurant Shift Leader Name Role Phone Unavailable Primary Care Provider Unavailabl e Source Comments [facility],non-owned Affiliates and Associated Physician Practices is amultiple site organization consisting of ambulatory clinics and hospital sitesin [place], [place], [place] and [place]. This disclosure is being madepursuant to the Care Everywhere program and may not contain all information available regarding this patient. Last updated 17.[facility] Allergies Active Allergy Reactions Criticality Noted Date [...] 53 08/01/2023 1:15 AM CDT Temperature 36.7 C (98 F) 07/31/2023 5:27 PM CDT Respiratory Rate 9 [...] to complete this topic MENINGOCOCCAL (Group B) VACC INE SHARED DECISION-MAKING Aged Out No longer eligibl e based on patient's age to complete this topic MENINGOCOCCAL GROUPS A/C/Y/W VACCINE Aged Out No longer eligible b ased on patient's age to complete this topic PNEUMOCOCCAL VACCINE Aged Out No long er eligible based on patient's age to complete this topic Advance Directives * Full Code (Latest Code Status on File) Date Activated Date Inactivated Comments 06/18/2009 4:40 PM 06/21/2009 7:33 AM
--- OUTSIDE RECORDS SUMMARY | 2024-05-21 13:19 | XMS_ITS | CONTINUITY OF CARE DOCUMENT ---
Author Name artemio ulloa Address Unknown Organization [facility] Address [address] [place] [address] [address] [place] [address] Phone [phone] Care Team Providers Care Waste Elimination Name Role Phone Jus Arango MD Unavailable [phone] TALYA PIMENTEL MD Unavailable [phone] TALYA PIMENTEL MD Unavailable INSURANCE PROVIDERS Payer name Policy type / Coverage type [place] red green party ID [employer] [id number]
--- OUTSIDE RECORDS SUMMARY | 2024-05-21 13:19 | XMS_ITS | Clinical Summary ---
Author Organization [facility] Address [address] [address] Phone Care Team Providers Care Wine Merchant Name Role Phone Roland Knight APRN, CNP [...] 75 06/14/2023 10:30 PM CDT Temperature 36.8 C (98.2 F) 06/14/2023 7:29 PM CDT Respiratory Rate 13 06/14/2023 10:30 PM CDT [...] to complete this topic Insurance Care Teams Wine Merchant Relationship Specialty Start Date End Date Roland Knight, BLOCK OPERATOR, TELEPHONE APPOINTMENT CLERK [address] [place] [address] [place] [address] PCP - General Advanced Practice Nurse 06/14/23
--- OUTSIDE RECORDS SUMMARY | 2024-05-21 13:19 | XMS_ITS | Referral Summary ---
Author Organization [facility] Address [address] [place] [address] Care Team Providers Care Patient Financial Coordinator Name Role Phone Roland Knight NP Primary Care Provider [phone]- [phone] Encounters Date Type Department Care Team Description 05/10/2024 5:03 PM CDT - 05/10/2024 9:18 PM CDT Emergency [facility] Emergency Department [address] [place] [address] Chest pain, unspecified type (Primary Dx) Discharge Disposition: Discharge to home or self care 03/16/2024 9:02 PM CHILD CARE COOK - 03/17/2024 3:05 AM [facility] Emergency [facility] Emergency Department 1 [place] [address] Nikkie Marmolejo MD Generalized weakness (Primary Dx); Thrombocytopenia; Family history of autoimmune disorder Discharge Disposition: Discharge to home or self care 02/24/2024 4:15 PM CHILD CARE COOK Office Visit [facility] at [address] [place] [phone] Ana Anne NP Lower respiratory infection [...] 3 tablets (54 mg total) by mouth home care administrator before breakfast Active metoprolol XL (TOPROL-XL) 50 [...] Active Active Problems No known active problems Social [...] on file Legal Sex Male 4:57 AM CHILD CARE COOK Gender Identity Not on file Sexual Orientation [...] 05/10/2024 4:43 PM CDT Plan of Treatment Not on file Procedures [...] LATERAL 2 VIEWS ED 03/16/2024 11:20 PM CHILD CARE COOK ECG 12-LEAD STAT 03/16/2024 11:00 PM CHILD CARE COOK PROTIME-INR STAT 03/16/2024 10:55 PM CHILD CARE COOK APTT STAT 03/16/2024 10:55 PM CHILD CARE COOK D-DIMER, QUANTITATIVE STAT 03/16/2024 10:55 PM CHILD CARE COOK PRO B-TYPE NATRIURETIC PEPTIDE STAT 03/16/2024 10:55 PM CHILD CARE COOK TROPONIN I HIGH-SENSITIVITY SERIES (BASELINE, 2HR, 4HR, 6HR) STAT 03/16/2024 10:55 PM CHILD CARE COOK URINALYSIS AND REFLEX TO MICROSCOPIC STAT 03/16/2024 10:55 PM CHILD CARE COOK EGFR STAT 03/16/2024 3:41 PM CHILD CARE COOK DIFFERENTIAL AUTO STAT 03/16/2024 3:4 1 PM [facility] CARE COOK LIPASE STAT 03/16/2024 3:41 PM [facility]ILD CARE COOK COMPREHENSIVE METABOLIC PANEL STAT 03/16/2024 3:41 PM CHILD CARE COOK CBC WITH AUTO DIFFERENTIAL STAT 03/16/2024 3:41 PM CHILD CARE COOK HEPATITIS C ANTIBODY Routine 09/14/2022 8:25 AM [...] Trop T hs interp Insignificant [facility] ([facility]) Blood 05/10/2024 7:01 PM CDT 05/10/2024 7:41 PM CDT us Artem Soriano MD LAB BLOOD ORDERABLES Final Res ult CHARISSE ROYAL [place]) 0 [facility] Department [place] [address] * XR Chest 1 Vw Portable (if [...] James Lewis M.D. AG: MARK Report ID: [id number] Reading Location: [id number] Procedure Note James Lewis MD - 05/10/2024 [...] James Lewis M.D. AG: MARK Report ID: [id number] Reading Location: [id number] Artem Soriano MD IMG XR PROCEDURES Final Result * Troponin T high-sensitivity series (baseline, 2hr, 4hr, 6hr) (05/10/2024 4:51 PM CDT) Trop T hs <6 <=22 ng/L Comment: Interpretive Data For further hscTnT resources including the diagnostic algorithm and an aid in interpretation, copy and paste this link: https://nrl.testcatalog.org/show/hsTrop Current Interpretive Data last revised 2019. Blood 05/10/2024 4:51 PM CDT 05/10/2024 5:00 PM CDT Artem Soriano MD LAB BLOOD ORDERABLES Final Res ult [facility] [place]) 5 [facility] Department [place] [address] * eGFR (05/10/2024 4:51 PM CDT) eGFR 77 >=60 mL/min/1. 73 m2 Comment: [...] MD LAB BLOOD ORDERABLES Final Res ult [facility] ([facility]) 1 [facility] Department [place] [address] * (ABNORMAL) Differential, auto (05/10/2024 4:51 PM CDT) Neutrophil abs 6.4 1.5 - 6.5 K/cumm [...] MD LAB BLOOD ORDERABLES Final Res ult [facility] ([facility]) 1 [facility] Department [place] [address] * (ABNORMAL) CBC with auto differential (05/10/2024 [...] RDW SD 38.8 35.7 - 48.1 fL [facility] NRBC abs 0.00 0.00 - 0.01 K/cumm [facility] ([facility]) Blood Venous blood specimen / Unknown 05/10/2024 4:51 PM CDT 05/10/2024 5:00 PM CDT us Artem Soriano MD LAB BLOOD ORDERABLES Final Res ult [facility] ([facility]) 1 [facility] Department [place] [address] * Comprehensive metabolic panel (05/10/2024 4:51 PM CDT) Sodium 137 135 - 145 mmol/L Potassium, pl 4.2 3.3 - 4.9 mmol/L [facility] ([facility]) Chloride 100 97 - 110 mmol/L [facility]) CO2 25 22 - 32 mmol/L [facility]) Anion gap 11 2 - 15 mmol/L [facility]) BUN 11 6 - 25 mg/dL [facility] Creatinine 1.24 0.80 - 1.30 [...] 4:51 PM CDT 05/10/2024 5:00 PM CDT Artem Soriano MD LAB BLOOD ORDERABLES Final Res ult Performing Organization Address [facility] de Phone Number [facility] ([facility]) 1 [facility] Department [place] [address] * ECG 12 lead (05/10/2024 4:44 PM CDT) 05/10/2024 4:44 PM CDT Narrative [facility] - 05/11/2024 10:24 AM CDT Vent Rate: 72 bpm RR Interval: 831 msec [place] Interval: 154 msec QRS Duration: 94 msec QT Interval: 352 msec QTC Interval: 376 msec P-R-T [place]: 58 - 97 - -24 degrees IMPRESSION: SINUS RHYTHM BORDERLINE RIGHT AXIS DEVIATION [QRS AXIS > 90] Inferior T-wave inversions, consider ischemia ABNORMAL ECG Electronically Signed By: Abraham Nogueira MD Artem Soriano MD ECG ORDERABLES Final Result Performing Organization Address [facility] Co de Phone Number [facility] [employer] [facility] * XR Chest PA Lateral 2 Views (03/16/2024 11:20 PM CHILD CARE COOK) Anatomical Region Laterality Modality Body, Chest N/A Computed Radiogr aphy 03/16/2024 11:3 1 PM CHILD CARE COOK Impressions 03/17/2024 8:28 AM CHILD CARE COOK The current study is compared with the prior radiograph dated 05/14/2008. Lungs are clear. No pulmonary consolidation. No pleural effusion or pneumothorax. Normal cardiomediastinal silhouette. Dictated by: Kiana Alegre MD The radiology attending physician has personally reviewed this study, and had reviewed and/or edited this written report and agrees with it. Electronically signed by: Joseluis Amador M.D. Narrative 03/17/2024 8:28 AM CHILD CARE COOK EXAMINATION: 2 view chest radiograph Procedure Note [...] Result * ECG 12-LEAD (03/16/2024 11:00 PM CHILD CARE COOK) Narrative [facility] - 03/16/2024 11:00 PM CHILD CARE COOK Shannan Vieira MD 03/16/2024 11:01 PM ECG [...] risk for acs Shannan Vieira MD 03/16/24 2301 Lupe Jackson MD ECG ORDERABLES Fin al Result [facility] * Troponin I high-sensitivity series (baseline, 2hr, 4hr, 6hr) (03/16/2024 10:55 PM CHILD CARE COOK) Trop I hs <4 <=35 ng/L Comment: Interpretive Data For further hscTnI resources including the diagnostic algorithm and an aid in interpretation, copy and paste this link: https://bjhlab.testcatalog.org/show/hsTrop-1 Current Interpretive Data last revised 2019. Blood 03/16/2024 10:5 5 PM CHILD CARE COOK 03/16/2024 11:11 PM CHILD CARE COOK Lupe Jackson MD LAB BLOOD ORDERABLE S Final Result Performing Organization Address City/[facility] Co de Phone Number [facility] Department [place] [address] * Pro B-type natriuretic peptide (03/16/2024 10:55 PM CHILD CARE COOK) NT-proBNP <50 <=300 pg/mL Comment: Interpretive Comments: [...] Date: 2017. Blood 03/16/2024 10:5 5 PM CHILD CARE COOK 03/16/2024 11:11 PM CHILD CARE COOK Lupe Jackson MD LAB BLOOD ORDERABLE S Final Result [facility] Department [place] [address] * Urinalysis reflex to microscopic (03/16/2024 10:55 PM CHILD CARE COOK) Color, ur Straw Yellow Clarity, ur Clear Clear [facility] Specific gravity, ur 1.016 1.003 - 1.030 [facility] pH, urine 6.0 [facility] Comment: Interpretive Data U rine pH is affected by diet, medications, systemic acid-base disturbances, and renal tubular function. pH may affect urinary stone formation. For example, urine pH below 6.0 may help reduce the tendency for calcium phosphate stones and pH greater than 6.0 may reduce the tendency for uric acid stone formation. Source: [facility] Current Interpretive Data was last revised on 2017 Protein, ur ql Negative Negative [facility] Glucose, ur ql Negative Negative [facility] Ketones, ur Negative Negative [facility] Bilirubin, ur Negative Negative [facility] Blood, ur Negative Negative [facility] Urobilinogen, ur <2.0 <2.0 mg/dL [facility] Nitrite, ur Negative Negative [facility] Leukocyte esterase, ur Negative Negative [facility] UA reflex comment Reflex conditions for microscopic UA not met. [facility] Urine 03/16/2024 10:5 5 PM CHILD CARE COOK 03/16/2024 11:04 PM CHILD CARE COOK Nikkie Marmolejo MD LAB URINE ORDERABLES Fin al Result Performing Organization Address [facility] de Phone Number [facility] [place] [address] * aPTT (03/16/2024 10:55 PM CHILD CARE COOK) aPTT 34 28 - 38 sec Comment: Interpretive Data Heparin therapeutic range: 66.0 - 100.0 seconds. Range based on correlation with therapeutic heparin activity range of 0.3 - 0.7 Units/mL. Current interpretive data was last revised on 2022. Blood 03/16/2024 10:5 5 PM CHILD CARE COOK 03/17/2024 12:29 AM CHILD CARE COOK Nikkie Marmolejo MD LAB BLOOD ORDERABLES Fin al Result Performing Organization Address [facility] de Phone Number [facility] [place] [address] * Protime-INR (03/16/2024 10:55 PM CHILD CARE COOK) PT 12.3 9.7 - 13.0 sec INR 1.14 0.90 - 1.20 [facility] Comment: Interpretive data Oral anticoagulant therapeutic ranges: Venous thromboembolism prophylaxis or treatment: 2.0-3.0 CARDIOLOGY Standard range: 2.0-3.0 High-intensity range: 2.5-3.5 Refer to indication-specific guidelines for appropriate target ranges for prosthetic heart valve replacement. Current interpretive data was last revised on 2019. Blood 03/16/2024 10:5 5 PM CHILD CARE COOK 03/17/2024 12:29 AM CHILD CARE COOK us Nikkie Marmolejo MD LAB BLOOD ORDERABLES Fin al Result Performing Organization Address City/[facility] Co de Phone Number CHARIS[facility] [place] [address] * D-dimer, quantitative (03/16/2024 10:55 PM CHILD CARE COOK) D-Dimer <215 <=499 ng/mL FEU Comment: Interpretive [...] on 2019. Blood 03/16/2024 10:5 5 PM CHILD CARE COOK 03/17/2024 12:29 AM CHILD CARE COOK us Lupe Jackson MD LAB BLOOD ORDERABLE S Final Result Performing Organization Address [facility] Co de Phone Number [facility] [place] [address] * eGFR (03/16/2024 3:41 PM CHILD CARE COOK) eGFR >90 >=60 mL/min/1. 73 m2 Comment: [...] last reviewed 2020. Blood 03/16/2024 3:41 PM CHILD CARE COOK 03/16/2024 4:17 PM CHILD CARE COOK us Nikkie Marmolejo MD LAB BLOOD ORDERABLES Fin al Result [facility] Department of Laboratories [place], [place] [id number] * (ABNORMAL) Differential, auto (03/16/2024 3:41 PM CHILD CARE COOK) Pathologist [facility] Neutrophil abs 4.1 1.5 - 6.5 K/cumm Imm gran abs 0.0 0.0 - 0.1 K/cumm [facility] Lymphocyte abs 3.7(H) 0.8 - 3.3 K/cumm [facility] Monocyte abs 0.5 0.2 - 0.8 K/cumm [facility] Eosinophil abs 0.1 0.0 - 0.5 K/cumm [facility] Basophil abs 0.0 0.0 - 0.1 K/cumm [facility] Neutrophil pct 48.7 % [facility] Comment: Interpretive Data Percent cell count reference ranges are not reported, since discordance with absolute values may lead to misinterpretation of CBC data. Current Interpretive Data was last revised on 2017. Imm gran pct 0.2 % [facility] Comment: Interpretive Data Percent cell count reference ranges are not reported, since discordance with absolute values may lead to misinterpretation of CBC data. Current Interpretive Data was last revised on 2017. Lymphocyte pct 43.4 % [facility] Comment: Interpretive Data Percent cell count reference ranges are not reported, since discordance with absolute values may lead to misinterpretation of CBC data. Current Interpretive Data was last revised on 2017. Monocyte pct 5.9 % [facility] Comment: Interpretive Data Percent cell count reference ranges are not reported, since discordance with absolute values may lead to misinterpretation of CBC data. Current Interpretive Data was last revised on 2017. Eosinophil pct 1.4 % [facility] Comment: Interpretive Data Percent cell count reference ranges are not reported, since discordance with absolute values may lead to misinterpretation of CBC data. Current Interpretive Data was last revised on 2017. Basophil pct 0.4 % [facility] Comment: Interpretive Data Percent cell count reference ranges are not reported, since discordance with absolute values may lead to misinterpretation of CBC data. Current Interpretive Data was last revised on 2017. Blood 03/16/2024 3:41 PM CHILD CARE COOK 03/16/2024 4:17 PM CHILD CARE COOK us Nikkie Marmolejo MD LAB BLOOD ORDERABLES Fin al Result Performing Organization Address City/State/[facility] Co de Phone Number [facility] Department [place] [address] * (ABNORMAL) CBC with auto differential (03/16/2024 3:41 PM CHILD CARE COOK) WBC 8.4 3.8 - 9.9 K/cumm Hgb 14.3 13.0 - 17.5 g/dL [facility] Hct 43.6 38.9 - 50.3 % [facility] Plt 114(L) 150 - 400 K/cumm [facility] MPV 12.3 9.1 - 12.3 fL [facility] RBC 5.18 4.30 - 5.80 M/cumm [facility] MCV 84.2 81.3 - 96.4 fL [facility] MCH 27.6 27.1 - 33.3 pg [facility] MCHC 32.8 32.3 - 35.7 g/dL [facility] RDW CV 12.6 11.1 - 14.9 % [facility] RDW SD 38.5 35.7 - 48.1 fL [facility] NRBC abs 0.00 0.00 - 0.01 K/cumm [facility] Blood Venous blood specimen / Unknown 03/16/2024 3:41 PM CHILD CARE COOK 03/16/2024 4:17 PM CHILD CARE COOK Nikkie Marmolejo MD LAB BLOOD ORDERABLES Fin al Result Performing Organization Address City/[facility] Co de Phone Number [facility] [place] [address] * Lipase (03/16/2024 3:41 PM CHILD CARE COOK) [facility] Lipase 12 10 - 99 Units/L Blood Venous blood specimen / Unknown 03/16/2024 3:41 PM CHILD CARE COOK 03/16/2024 4:17 PM CHILD CARE COOK Nikkie Marmolejo MD LAB BLOOD ORDERABLES Fin al Result Performing Organization Address [facility] de Phone Number [facility] Department [place] [address] * Comprehensive metabolic panel (03/16/2024 3:41 PM CHILD CARE COOK) [facility] Sodium 140 135 - 145 mmol/L Potassium, pl 4.0 3.3 - 4.9 mmol/L [facility] Chloride 104 97 - 110 mmol/L [facility] CO2 28 22 - 32 mmol/L [facility] Anion gap 8 2 - 15 mmol/L [facility] BUN 7 6 - 25 mg/dL [facility] Creatinine 1.08 0.80 - 1.30 mg/dL [facility] Glucose 100 70 - 199 mg/dL [facility] Comment: Interpretive Data Fasting glucose >/= [...] 2022. Calcium 9.1 8.5 - 10.3 mg/dL [facility] Bilirubin, total 0.5 0.1 - 1.2 mg/dL [facility] Protein, pl 7.8 6.5 - 8.5 g/dL [facility] Albumin 4.3 3.5 - 5.0 g/dL [facility] Alk phos 62 40 - 130 Units/L [facility] ALT 30 7 - 55 Units/L [facility] AST 37 10 - 50 Units/L [facility] Blood 03/16/2024 3:41 PM CHILD CARE COOK 03/16/2024 4:17 PM CHILD CARE COOK Nikkie Marmolejo MD LAB BLOOD ORDERABLES Fin al Result [facility] Department [place] [address] * (ABNORMAL) Hepatitis C antibody (09/14/2022 8:25 AM CDT) Hep C Ab Reactive( A) Nonreactive [facility] Comment: Interpretive Data Nonreactive: Antibodies to HCV [...] ORDER THOMAS Final Result Performing Organization Address City/State/ZIP Co tn Phone Number CHARISSE [address] [facility] Department [place] [address] from Last 3 Months or Most Recently Relevant to Health Maintenance Insurance [facility] [employer] Care Teams Patient Financial Coordinator Relationship Specialty Start Date End Date Roland Knight NP [address] [place] [id number] PCP - General Pain Management 02/24/24
[2024-05-23 12:58] LABS: Hepatitis C RNA, Quant PCR <15 NOT DETECTED IU/mL (NOT DETECTED)
== END 2024-05-21 11:59 | disposition home or self-care (01) ==
LOC: ANHLAB 11:59
PROVIDERS: PCP Nurse Practitioner; Visit Provider Nurse Practitioner
DX: R79.89 Other specified abnormal findings of blood chemistry (principal); B19.20 Unspecified viral hepatitis C without hepatic coma
CPT/HCPCS: 36415; 80053; 85027; 85610; 87522

== ENCOUNTER 2024-06-13 09:27 | Outpatient (CLI) | payer OTHER, SELFPAY ==
--- OUTSIDE RECORDS SUMMARY | 2024-06-13 10:24 | XMS_ITS | Clinical Summary ---
Author Organization [facility] Address [address] [place] [address] Care Team Providers Care Search Advertising Strategist Name Role Phone Unavailable Primary Care Provider Unavailabl e Source Comments [facility],non-owned Affiliates and Associated Physician Practices is amultiple site organization consisting of ambulatory clinics and hospital sitesin [place], [place], [place] and [place]. This disclosure is being madepursuant to the Care Everywhere program and may not contain all information available regarding this patient. Last updated 17.[facility] [employer] Allergies Active Allergy Reactions Criticality Noted Date Comments Contrast-Iodinated Agents For Ct/Other Anaphylaxis High 10/06/2017 Medications * Be aware that medications may not be up to date on this document. Alwaysverify current medications with the patient. citalopram (CELEXA) 40 MG tablet Take 40 [...] at Not on file Legal Sex Male 8:48 AM [employer] Gender Identity Not on file Sexual Orientation [...] - 19+ 3-dose series) 08/23/2006 COVID-19 VACCINE (1 - 2023-2 5 season) 2023 DEPRESSION SCREENING 02/22/2024 INFLUENZA VACCINE (Season Ended) 2024 ZOSTER VACCINE (1 of 2) 08/23/2037 HEPATITIS [...] patient's age to complete this topic Insurance MEDICAID - [place] [facility] Advance Directives * Full Code (Latest Code Status on File) Date Activated Date Inactivated Comments 06/18/2009 4:40 PM 06/21/2009 7:33 AM
--- OUTSIDE RECORDS SUMMARY | 2024-06-13 10:24 | XMS_ITS | Clinical Summary ---
Author Organization [facility] fl[facility]ur [place] Address [address] [place] [address] Care Team Providers Care Progress Developer Name Role Phone Janet Desai MD Primary Care Provider [phone] Allergies Active Allergy Reactions Criticality Noted Date Comments Iodinated Contrast Media Anaphylaxis High 02/26/2020 Medications dextroamphetam ine-amphetamin e (ADDERALL) 20 mg tabletIndicati ons:Anxiety state,Attentio n deficit disorder (ADD) in adult Take one tablet early afternoon 30 Tablet 02/06/20 21 Active eszopiclone (LUNESTA) 3 mg Tablet Take 3 mg by mouth nightly as needed for Insomnia. Active lumateperone (Caplyta) 42 mg Capsule Take 42 mg by mouth daily. Active Sublocade solution, extended rel syringe Inject 300 mg by subcutaneous injection every 28 days. 10/11/19 24 Active buprenorphine- nalOXone (SUBOXONE FILM) 4-[address] 1 Strip under tongue 1 time daily as needed. 11/24/19 24 Active hydroCHLOROthi azide 12.5 mg tablet Take 12.5 mg by mouth daily. 01/03/20 24 Active testosterone cypionate (DEPO-TESTOSTE SHAKIRA) 200 mg/mL [...] Puffs by inhalation. 02/23/19 25 026 Active esomeprazole (NexIUM) 40 mg Capsule, Delayed Release(E.C.) 05/03/19 25 Active lisinopriL (PRINIVIL) 20 mg tablet Take 20 mg by mouth 2 times daily. 05/12/19 25 Active citalopram (CeleXA) 20 mg tablet 05/25/19 25 Active methylphenidat e ER 18 mg tablet,extende d release 24 hr Take 54 mg by mouth. Active dextroamphetam ine-amphetamin e (Mydayis) 50 mg capsule, ER triphasic 24 hr Take 50 mg by mouth daily. 025 Discontinu ed(Other) citalopram (CeleXA) 40 mg tablet Take 40 mg by mouth daily. 12/26/19 24 025 Discontinu ed(Alterna te therapy prescribed ) methylphenidat e ER 54 mg tablet,extende d release 24 hr Take 54 mg by mouth daily. 12/26/19 24 025 Discontinu ed(Other) escitalopram oxalate (LEXAPRO) 20 mg tablet Take 20 mg by mouth daily. 025 Discontinu ed(Alterna te therapy prescribed ) Active Problems Problem Noted Date Diagnosed Date [...] Overview (03/08/2024): Current treatment per Dr. Simon. [facility]. Completed 01/2024. Panic attacks 02/26/2020 Resolved Problems Problem Noted Date Diagnosed Date Resolved Date Hepatitis C antibody test positive 10/21/2022 10/21/2022 Anxiety state 02/26/2020 10/22/2022 Precordial pain 02/26/2020 10/21/2022 Closed nondisp fracture of r ight medial malleolus with routine healing 10/21/2014 Encounters Date Type Department Care Team Description 05/29/2024 Results Follow-Up [facility] at [place] [address] [place] [address] Vanda Perdue, RCIHARD CBC WITH DIFFERENTIAL, URINE CULTURE 05/28/2024 1:30 PM CDT Office Visit [place] [address] [place] [phone] Vanda Perdue, RICHARD Leukocytosis, unspecified type (Primary Dx); Mixed anxiety and depressive disorder; History of palpitations; Chest pain, unspecified type 05/11/2024 Telephone [facility] at [place] [address] [place] [address] Janet Desai MD Follow up 04/17/2024 External Device Data STL ABSTRACTION Provider, Abstract 04/12/2024 4:30 PM PROMOTIONAL ADVERTISING ASSISTANT Telephone Check Up [facility] Oncology [facility] [address] [place] [phone] True Wilson MD Other fatigue (Primary Dx); Chronic anemia 03/27/2024 2:45 PM PROMOTIONAL ADVERTISING ASSISTANT Office Visit [facility] Oncology [facility] [address] [facility] [place] [phone] True Wilson MD Other fatigue (Primary Dx); Other secondary thrombocytopenia 03/16/2024 9:00 AM PROMOTIONAL ADVERTISING ASSISTANT Procedure visit [place] [address] [place] [phone] Left-sided chest pain 03/16/2024 Orders Only Initial Department [address] HARDY: [place] [address] Provider, Historical 03/16/2024 Results Follow-Up [facility] at [facility] [address] [place] [address] [place] [place] [address] Janet Desai MD D-DIMER 03/16/2024 Results Follow-Up [facility] at [place] [address] [place] [address] Vanda Perdue ANP CBC WITH DIFFERENTIAL 03/16/2024 Lab Requisition [facility] [address] [facility] [place] [address] Vanda Perdue ANP 03/15/2024 3:00 PM PROMOTIONAL ADVERTISING ASSISTANT Office Visit [facility] at [facility] [employer] [place] [address] [place] [phone] Vanda Perdue ANP Left-sided chest pain (Primary Dx); Anxiety state; History of hepatitis C; Splenomegaly mild on CT scan 07/2023 and 01/2024; Prediabetes from Last 3 Months Immunizations Immunization Administration [...] on file Legal Sex Male 9:32 AM PROMOTIONAL ADVERTISING ASSISTANT Gender Identity Not on file Sexual Orientation Not on file Last Filed Vital Signs Vital Sign Reading Time Taken Comments Blood Pressure 136/88 05/28/2024 1:17 PM CDT Pulse 69 05/28/2024 1:17 PM CDT Temperature 36.8 C (98.2 F) 05/28/2024 1:17 PM CDT Respiratory Rate 18 05/28/2024 1:17 PM CDT Oxygen Saturation 97% 05/28/2024 1:17 PM CDT Inhaled Oxygen Concentration - - Weight 122 kg (269 lb) 05/28/2024 1:17 PM CDT Height 182.9 cm (6') 05/28/2024 1:17 PM CDT Body Mass Index 36.48 05/28/2024 1:17 PM CDT Plan of Treatment Upcoming Encounters Date Type Department Care Team (Late st Contact Info) Description 09/25/2024 3:30 PM CDT Office Visit [facility] Oncology and Hematology - [place] [address] [place] [address] [facility] [address] [place] [address] True Wilson MD [address] [facility] [address] [place] [address] Health Maintenance Due Date Last [...] Associated Diagnosis Comments CBC WITH DIFFERENTIAL Routine 05/28/2024 2:02 PM CDT Leukocytosis, unspecified type URINE CULTURE Routine 05/28/2024 2:02 PM CDT Leukocytosis, unspecified type PLEASE NOTE Routine 03/16/2024 7:19 AM PROMOTIONAL ADVERTISING ASSISTANT D-DIMER Stat 03/16/2024 7:19 AM PROMOTIONAL ADVERTISING ASSISTANT NM ECG ROUTINE ECG W/LEAST 12 LDS W/I&R Routine 03/15/2024 3:00 PM PROMOTIONAL ADVERTISING ASSISTANT Left-sided chest pain HEMOGLOBIN A1C Routine 03/09/2024 11:14 AM PROMOTIONAL ADVERTISING ASSISTANT Polydipsia from Last 3 Months or Most Recently Relevant to Health Maintenance Results * CBC WITH DIFFERENTIAL (05/28/2024 2:02 PM CDT) Pathologist [facility] WBC 7.7 3.8 - 10.8 Thousand/u L [facility] RBC 5.13 4.20 - 5.80 Million/uL [facility] HEMOGLOBIN 14.8 13.2 - 17.1 g/dL [facility] HEMATOCRIT 45.3 38.5 - 50.0 % [facility] MCV 88.3 80.0 - 100.0 fL [facility] MCH 28.8 27.0 - 33.0 pg [facility] MCHC 32.7 32.0 - 36.0 g/dL [facility] Comment: For adults, a slight decrease in the calculated MCHC value (in the range of 30 to 32 g/dL) is most likely not clinically significant; however, it should be interpreted with caution in correlation with other red cell parameters and the patient's clinical condition. RDW 12.4 11.0 - 15.0 % [facility] PLATELETS 148 140 - 400 Thousand/u L [facility] MPV 11.9 7.5 - 12.5 fL [facility] NEUTROPHIL ABSOLUTE 4,651 1,500 - 7,800 cells/uL [facility] LYMPHOCYTE ABSOLUTE 2,541 850 - 3,900 cells/uL [facility] MONOCYTE ABSOLUTE 408 200 - 950 cells/uL [facility] EOSINOPHIL ABSOLUTE 69 15 - 500 cells/uL [facility] BASOPHILS ABSOLUTE 31 0 - 200 cells/uL [facility] NEUTROPHIL 60.4 % [facility] LYMPHOCYTES 33.0 % [facility] MONOCYTE 5.3 % [facility] EOSINOPHILS 0.9 % [facility] BASOPHILS 0.4 % [facility] Comment: Test Performed at: [place] [address] [id number] [facility] Vo Blood 05/28/2024 2:02 PM CDT 05/28/2024 11:21 PM CDT Vanda Perdue ANP HEMATOLOGY ORDERABLES Final Result [facility] [phone] [place] [address] [phone] * URINE CULTURE (05/28/2024 2:02 PM CDT) URINE CULTURE SEE NOTE Kizzy LotarisCieloAnthony Newell Comment: CULTURE, URINE, ROUTINE Micro Number: [id number] Test Status: Final Specimen Source: Urine, clean catch Specimen Quality: Adequate Result: No Growth Test Performed at: [place] [address] [id number] [facility] Urine URINE SPECIMEN OBTAINED BY CLEAN CATCH PROCEDURE / Unknown 05/28/2024 2:02 PM CDT 05/29/2024 3:18 AM CDT Vanda Perdue ANP MICROBIOLOGY - GENERAL ORDER THOMAS Final Result [facility] [phone] [place] [address] [address] [phone] * PLEASE NOTE (03/16/2024 7:19 AM PROMOTIONAL ADVERTISING ASSISTANT) PLEASE NOTE: Kizzy LotarisCieloAnthony Newell Comment: Detailed Reference Laboratory Report to Follow Test Performed at: [place] [address] [phone] [facility] Vo 03/16/2024 7:19 AM PROMOTIONAL ADVERTISING ASSISTANT 03/16/2024 10:56 AM PROMOTIONAL ADVERTISING ASSISTANT Vanda Perdue ANP CHEMISTRY ORDERABLES Final R esult [facility] [phone] [facility] [address] [phone] * (ABNORMAL) D-DIMER (03/16/2024 7:19 AM PROMOTIONAL ADVERTISING ASSISTANT) D-DIMER QUANT 0.95(H) <0.50 ug/mL FEU 03/16/2024 12:07 PM PROMOTIONAL ADVERTISING ASSISTANT [facility] [employer] [facility] Blood Collection / Unknown 03/16/2024 7:19 AM PROMOTIONAL ADVERTISING ASSISTANT 03/16/2024 11:28 AM PROMOTIONAL ADVERTISING ASSISTANT Narrative [facility] [employer] [facility] - 03/16/2024 12:07 PM PROMOTIONAL ADVERTISING ASSISTANT D-Dimer assay cutoff value for exclusion of DVT and/or PE is <0.50 ug/mL FEU. Vanda Perdue ANP HEMATOLOGY ORDERABLES Final Result [facility] [employer] [facility] CLIA# [id number] [address] [facility] [place] [id number] * NM ECG ROUTINE ECG W/LEAST 12 LDS W/I&R (03/15/2024 3:00 PM PROMOTIONAL ADVERTISING ASSISTANT) Narrative [facility] [place] - 03/15/2024 3:00 PM PROMOTIONAL ADVERTISING ASSISTANT Vanda Perdue ANP 03/15/2024 4:17 PM EKG [...] ischemic changes. No peaked T waves. No NM depression. Procedure Note Vanda Perdue ANP - 03/15/2024 3:19 PM CST Images from the original note were not included. HISTORY OF PRESENT ILLNESS Brian Watkins Jr., a 38 y.o. male presents [...] that might causewithdrawal like symptoms. CXR at [place] normal 02/20. See media. REVIEW OF SYSTEMS [...] No ischemic changes. No peaked T waves.No NM depression. Assessment ASSESSMENT and PLAN: 1. Left-sided [...] with any orderedtest results. RICHARD Trevino 03/15/2024 [facility] AT [address] [address] Some of this encounter may have been transcribed using [employer] voice recognition without a human cellular plastics cutter.This report may or may not have been adjusted for typographical or medicaland syntax errors. Vanda RAMOS ECG ORDERABLES Final Result [facility]# [id number] [address] [place] [address] * (ABNORMAL) HEMOGLOBIN A1C (03/09/2024 11:14 AM PROMOTIONAL ADVERTISING ASSISTANT) HEMOGLOBIN A1C 5.8(H) <5.7 % of total Hgb [facility] Comment: For someone without known diabetes, [...] children. ESTIMATED AVERAGE GLUCOSE (MG/DL) 120 mg/dL Lavante[facility] Newell ESTIMATED AVERAGE GLUCOSE (MMOL/L) 6.6 mmol/L [facility] Newell Comment: Test Performed [facility]: [facility] [address] [phone] Maribell Meek Vo Blood 03/09/2024 11:1 4 AM PROMOTIONAL ADVERTISING ASSISTANT 03/10/2024 12:44 AM PROMOTIONAL ADVERTISING ASSISTANT us Vanda Perdue ANP CHEMISTRY ORDERABLES Final R esult [facility] [phone] [facility] [address] [place] [address] from Last 3 Months or Most Recently Relevant to Health Maintenance Insurance OPEN ACCESS OPEN ACCESS ALLEGIANCE OPEN ACCESS Care Teams Progress Developer Relationship Specialty Start Date End Date Janet Desai MD [address] [place] [address] [address] [place] [address] PCP - General Internal Medicine 03/08/24
--- OUTSIDE RECORDS SUMMARY | 2024-06-13 10:24 | XMS_ITS | Encounter Summary ---
Author Organization [facility] Address [address] [place] [address] Care Team Providers Care Clay Shop Supervisor Name Role Phone Janet Desai MD Primary Care Provider [phone] Encounter Details Date Type Department Care Team (Latest Contact Info) Description 03/13/2024 Results Follow-Up [facility] at [facility] [employer] [place] [address] [place] [address] Vanda Perdue ANP [address] [facility] [address] [place] [address] HEMOGLOBIN A1C, COMPREHENSIVE METABOLIC PANEL, CBC WITH DIFFERENTIAL, Additional followed-up results: 2 Social History Tobacco Use Types Packs/Day Years Used Date Smoking Tobacco: Never Smokeless Tobacco: Never Alcohol Use Standard Drinks/Week Comments Yes 0 (1 standard drink = 0.6 oz pur e alcohol) Sex and Gender Information Value Date Recorded Sex Assigned at Not on file Legal Sex Male 9:32 AM WINDOW GLAZIER HELPER Gender Identity Not on file Sexual Orientation Not on file documented as of this encounter Miscellaneous Notes * Result Encounter Note - Vanda Perdue ANP - 03/13/2024 7:20 AM WINDOW GLAZIER HELPER Contact patient regarding result. Urine did not show any infection. Digestive enzymes are normal, including liver and pancreas. Blood sugar in prediabetic range. Not cause of his illness. Will need to discuss in future. Infection levels are normal but platelet count is low. This is new finding. Recommend repeat CBC today or tomorrow See telephone encounter. OW GLAZIER HELPER documented in this encounter Plan of Treatment Upcoming Encounters Date Type Department Care Team (Late st Contact Info) Description 09/25/2024 3:30 PM CDT Office Visit [facility] Oncology and Hematology - [place] [address] [facility] [address] [place] [address] True Wilson MD [address] [facility] [address] [place] [address] documented as of this encounter Visit Diagnoses Diagnosis Prediabetes- Primary Other abnormal glucose documented in this encounter Care Teams Clay Shop Supervisor Relationship Specialty Start Date End Date Janet Desai MD [address] [place] [address] PCP - General Internal Medicine 03/08/24 documented as of this encounter
--- OUTSIDE RECORDS SUMMARY | 2024-06-13 10:24 | XMS_ITS | Clinical Summary ---
Author Organization [facility] Address [address] [address] Phone Care Team Providers Care Water Mechanic Name Role Phone Roland Knight APRN, CNP [...] to complete this topic Insurance Care Teams Water Mechanic Relationship Specialty Start Date End Date Roland Knight, FLEXO OPERATOR, TOUR DRIVER [address] [place] [address] [place] [address] PCP - General Advanced Practice Nurse 06/14/23
--- OUTSIDE RECORDS SUMMARY | 2024-06-13 10:24 | XMS_ITS | Encounter Summary ---
Author Organization [facility] Address [address] [place] [address] Care Team Providers Care Material Flow Analyst Name Role Phone Janet Desai MD Primary Care Provider [phone] Encounter Details Date Type Department Care Team (Latest Contact Info) Description 03/16/2024 Results Follow-Up [facility] at [place] [address] [place] [address] Vanda Perdue, ANP [address] [facility] Ana Maríaflorencia Werner [facility] [address] [place] [address] CBC WITH DIFFERENTIAL Social History Tobacco Use Types Packs/Day Years Used Date Smoking Tobacco: Never Smokeless Tobacco: Never Alcohol Use Standard Drinks/Week Comments Yes 0 (1 standard drink = 0.6 oz pur e alcohol) Sex and Gender Information Value Date Recorded Sex Assigned at Not on file Legal Sex Male 9:32 AM COTTON WEIGHER OPERATOR Gender Identity Not on file Sexual Orientation Not on file documented as of this encounter Plan of Treatment Upcoming Encounters Date Type Department Care Team (Late st Contact Info) Description 09/25/2024 3:30 PM CDT Office Visit [facility] Oncology and Hematology - [place] [address] [facility] [address] [place] [address] True Wilson MD [address] [facility] [address] [place] [address] documented as of this encounter Visit Diagnoses Not on filedocumented in this encounter Care Teams Material Flow Analyst Relationship Specialty Start Date End Date Janet Desai MD [address] [place] [address] PCP - General Internal Medicine 03/08/24 documented as of this encounter
--- OUTSIDE RECORDS SUMMARY | 2024-06-13 10:24 | XMS_ITS | CONTINUITY OF CARE DOCUMENT ---
Author Name artemio ulloa Address Unknown Organization [facility] Address [address] [place] [address] [address] [place] [address] Phone [phone] Care Team Providers Care Cps Team Lead Name Role Phone Jus Arango MD Unavailable TALYA PIMENTEL MD Unavailable TALYA PIMENTEL MD Unavailable INSURANCE PROVIDERS Payer name Policy type / Coverage type [place] red green party ID NATIONAL EMPLOYEE BENEFITS [employer] - A First of Its Kind Flip Flop insurance [employer] [id number]
--- OUTSIDE RECORDS SUMMARY | 2024-06-13 10:24 | XMS_ITS | Encounter Summary ---
Author Organization [facility] Address [address] [place] [address] Care Team Providers Care Pattern Keeper Name Role Phone Janet Desai MD Primary Care Provider [phone] Encounter Details Date Type Department Care Team (Late st Contact Info) Description 05/29/2024 Results Follow-Up [facility] at [facility] [address] [place] [address] [place] [address] Vanda Perdue ANP [address] [facility] [address] [place] [address] CBC WITH DIFFERENTIAL, URINE CULTURE Social History Tobacco Use Types Packs/Day Years Used Date Smoking Tobacco: Never Smokeless Tobacco: Never Alcohol Use Standard Drinks/Week Comments Yes 0 (1 standard drink = 0.6 oz pur e alcohol) Sex and Gender Information Value Date Recorded Sex Assigned at Not on file Legal Sex Male 9:32 AM CYBER SECURITY MANAGER Gender Identity Not on file Sexual Orientation Not on file documented as of this encounter Miscellaneous Notes * Result Encounter Note - Vanda Perdue ANP - 05/31/2024 7:29 AM CDT No urine infection. * Result Encounter Note - Karo Brito RN - 05/29/2024 7:59 AM CDT Called patient and relayed message regarding lab result. Patient verbalized understanding. * Result Encounter Note - Vanda Perdue ANP - 05/29/2024 7:20 AM CDT Contact patient regarding result. Call pt this AM and let him know that his white blood cell level is normal. No concerns are noted. ( He is traveling today ) documented in this encounter Plan of Treatment Upcoming Encounters Date Type Department Care Team (Late st Contact Info) Description 09/25/2024 3:30 PM CDT Office Visit [facility] Oncology and Hematology - [place] [address] [facility] [address] [place] [address] True Wilson MD [address] [facility] [address] [place] [address] documented as of this encounter Visit Diagnoses Not on filedocumented in this encounter Care Teams Pattern Keeper Relationship Specialty Start Date End Date Janet Desai MD [address] [place] [address] PCP - General Internal Medicine 03/08/24 documented as of this encounter
--- OUTSIDE RECORDS SUMMARY | 2024-06-13 10:24 | XMS_ITS | Referral Summary ---
Author Organization [facility] Address [address] [place] [address] Care Team Providers Care Fire Protection Fabricator Name Role Phone Roland Knight NP Primary Care Provider [phone]- [phone] Encounters Date Type Department Care Team Description 05/27/2024 Results Follow-Up [facility] [place] [address] Keila Cornejo NP 05/26/2024 6:58 PM CDT - 05/26/2024 8:30 PM CDT Emergency [facility] Emergency Department [address] [place] [phone] Asha Nicholas MD Chest pain, unspecified type (Primary Dx) Discharge Disposition: Discharge to home or self care 05/26/2024 6:02 PM CDT - 05/26/2024 6:39 PM CDT Emergency [facility] [place] [address] Rebekah Ayala MD Chest pain, unspecified type (Primary Dx); Diaphoresis; Sinus tachycardia Discharge Disposition: Discharge to a critical access hospital 05/10/2024 5:03 PM CDT - 05/10/2024 9:18 PM CDT Emergency [facility] Emergency Department [address] [place] [address] Chest pain, unspecified type (Primary Dx) Discharge Disposition: Discharge to home or self care 03/16/2024 9:02 PM SALES REPRESENTATIVE ADVERTISING - 03/17/2024 3:05 AM SALES REPRESENTATIVE ADVERTISING Emergency [facility] Emergency Department [address] [place] [address] Nikkie Marmolejo MD Generalized weakness (Primary Dx); Thrombocytopenia; Family history of autoimmune disorder Discharge Disposition: Discharge to home or self care from Last 3 Months Allergies Active Allergy [...] 3 tablets (54 mg total) by 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 Denies 05/26/2024 Sex and Gender Information Value Date Recorded Sex Assigned at Not on file Legal Sex Male 4:57 AM SALES REPRESENTATIVE ADVERTISING Gender Identity Not on file Sexual Orientation Not on file Last Filed Vital Signs Vital Sign Reading Time Taken Comments Blood Pressure 168/93 05/26/2024 6:43 PM CDT Pulse 101 05/26/2024 6:43 PM CDT Temperature 36.9 C (98.4 F) 05/26/2024 6:43 PM CDT Respiratory Rate 22 05/26/2024 6:43 PM CDT Oxygen Saturation 99% 05/26/2024 6:43 PM CDT Inhaled Oxygen Concentration - - Weight 122.5 kg (270 lb) 05/26/2024 6:43 PM CDT Height 182.9 cm (6') 05/26/2024 6:43 PM CDT Body Mass Index 36.62 05/26/2024 6:43 PM CDT Plan of Treatment Not on file Procedures Procedure Name Priority Date/Time Associated Diagnosis Comments ECG 12-LEAD Routine 05/26/2024 8:30 PM CDT XR CHEST PA LATERAL 2 VIEWS ED 05/26/2024 7:48 PM CDT TROPONIN I HIGH-SENSITIVITY SERIES (BASELINE, 2HR, 4HR, 6HR) STAT 05/26/2024 7:35 PM CDT RESPIRATORY PATHOGEN PANEL STAT 05/26/2024 7:35 PM CDT ECG 12-LEAD Routine 05/26/2024 6:54 PM CDT PRO B-TYPE NATRIURETIC PEPTIDE STAT 05/26/2024 6:08 PM CDT MANUAL DIFFERENTIAL STAT 05/26/2024 6 :08 PM CDT EGFR STAT 05/26/2024 6:08 PM CDT D-DIMER, QUANTITATIVE STAT 05/26/2024 6:08 PM CDT BETA-HYDROXYBUTYRATE STAT 05/26/2024 6:08 PM CDT TROPONIN T HIGH-SENSITIVITY Routine 05/26/2024 6:08 PM CDT LIPASE STAT 05/26/2024 6:08 PM CDT COMPREHENSIVE METABOLIC PANEL STAT 05/26/2024 6:08 PM CDT CBC WITH AUTO DIFFERENTIAL STAT 05/26/2024 6:08 PM CDT POCT GLUCOSE DEVICE Routine 05/26/2024 6 :03 PM CDT HEMOGLOBIN A1C Routine 05/26/2024 6:00 PM CDT TROPONIN T HIGH-SENSITIVITY 2-HOUR Timed 05/10/2024 7:01 [...] LATERAL 2 VIEWS ED 03/16/2024 11:20 PM SALES REPRESENTATIVE ADVERTISING ECG 12-LEAD STAT 03/16/2024 11:00 PM SALES REPRESENTATIVE ADVERTISING PROTIME-INR STAT 03/16/2024 10:55 PM SALES REPRESENTATIVE ADVERTISING APTT STAT 03/16/2024 10:55 PM SALES REPRESENTATIVE ADVERTISING D-DIMER, QUANTITATIVE STAT 03/16/2024 10:55 PM SALES REPRESENTATIVE ADVERTISING PRO B-TYPE NATRIURETIC PEPTIDE STAT 03/16/2024 10:55 PM SALES REPRESENTATIVE ADVERTISING TROPONIN I HIGH-SENSITIVITY SERIES (BASELINE, 2HR, 4HR, 6HR) STAT 03/16/2024 10:55 PM SALES REPRESENTATIVE ADVERTISING URINALYSIS AND REFLEX TO MICROSCOPIC STAT 03/16/2024 10:55 PM SALES REPRESENTATIVE ADVERTISING EGFR STAT 03/16/2024 3:41 PM SALES REPRESENTATIVE ADVERTISING DIFFERENTIAL AUTO STAT 03/16/2024 3:4 1 PM SALES REPRESENTATIVE ADVERTISING LIPASE STAT 03/16/2024 3:41 PM SALES REPRESENTATIVE ADVERTISING COMPREHENSIVE METABOLIC PANEL STAT 03/16/2024 3:41 PM SALES REPRESENTATIVE ADVERTISING CBC WITH AUTO DIFFERENTIAL STAT 03/16/2024 3:41 PM SALES REPRESENTATIVE ADVERTISING HEPATITIS C ANTIBODY Routine 09/14/2022 8:25 AM CDT from Last 3 Months or Most Recently Relevant to Health Maintenance Results * ECG 12-LEAD (05/26/2024 8:30 PM CDT) Narrative [facility] - 05/26/2024 8:30 PM CDT Asha Nicholas MD 05/26/2024 8:46 PM ECG 12 lead Date/Time: 05/26/2024 8:30 PM Performed by: Keon Cavazos MD Authorized by: Keon Cavazos MD Rate: ECG rate: 90 ECG rate assessment: normal Rhythm: Rhythm: sinus rhythm Ectopy: Ectopy: none QRS: QRS axis: Normal Conduction: Conduction: normal ST segments: ST segments: Normal T waves: T waves: inverted Inverted: III Previous ECG: Previous ECG: Compared to current Date of previous EC05/26/2024 Similarity: No change Interpretation: Interpretation: No acute injury pattern Recommended Follow-up: Recommended follow up: further workup in the ED Procedure Note Keon Cavazos MD - 05/26/2024 8:30 PM CDT Procedure ECG 12 lead Date/Time: 05/26/2024 8:30 PM Performed by: Keon Cavazos MD Authorized by: Keon Cavazos MD Rate: ECG rate: 90 ECG rate assessment: normal Rhythm: Rhythm: sinus rhythm Ectopy: Ectopy: none QRS: QRS axis: Normal Conduction: Conduction: normal ST segments: ST segments: Normal T waves: T waves: inverted Inverted: III Previous ECG: Previous ECG: Compared to current Date of previous EC05/26/2024 Similarity: No change Interpretation: Interpretation: No acute injury pattern Recommended Follow-up: Recommended follow up: further workup in the ED Keon Cavazos MD Resident 05/26/242033 Keon Cavazos MD ECG ORDERABLES Final Result [facility] * XR Chest Pa Lateral 2 Views (05/26/2024 7:48 PM CDT) Anatomical Region Laterality Modality Body, Chest N/A Computed Radiogr aphy 05/26/2024 7:54 PM CDT Impressions 05/26/2024 8:38 PM CDT Comparison is made to 05/10/2024. No consolidation or pulmonary edema. No pleural effusion or pneumothorax. The cardiomediastinal silhouette is normal. Dictated by: Moses Preston MD The radiology attending physician has personally reviewed this study, and had reviewed and/or edited this written report and agrees with it. Electronically signed by: Kenya Diaz M.D. Narrative 05/26/2024 8:38 PM CDT EXAMINATION: 2 view chest radiograph Procedure Note Kenya Neely MD - 05/26/2024 EXAMINATION: 2 view chest radiograph IMPRESSION: Comparison is made to 05/10/2024. No consolidation or pulmonary edema. No pleural effusion or pneumothorax. The cardiomediastinal silhouette is normal. Dictated by: Moses Preston MD The radiology attending physician has personally reviewed this study, and had reviewed and/or edited this written report and agrees with it. Electronically signed by: Kenya Diaz M.D. Asha Nicholas MD IMG XR PROCEDURES Final Res ult * Troponin I high-sensitivity series (baseline, 2hr, 4hr, 6hr) (05/26/2024 7:35 PM CDT) [facility] Trop I hs <4 <=35 ng/L Comment: Interpretive Data For further [facility] resources including the diagnostic algorithm and an aid in interpretation, copy and paste this link: [email or web address]/[email or web address] Current Interpretive Data last revised 2019. Blood 05/26/2024 7:35 PM CDT 05/26/2024 7:55 PM CDT Asha Nicholas MD LAB BLOOD ORDERABLES Final Result [facility] Department [place] [address] * Respiratory pathogen panel Nasopharyngeal (05/26/2024 7:35 PM CDT) [facility] Influenza A RNA Not Detected Not Detected Influenza B RNA Not Detected Not Detected [facility] RSV RNA Not Detected Not Detected [facility] COVID-19 RNA Not Detected Not Detected [facility] Coronavirus 229E RNA Not Detected Not Detected [facility] Coronavirus HKU1 RNA Not Detected Not Detected [facility] Coronavirus NL63 RNA Not Detected Not Detected [facility] Coronavirus OC43 RNA Not Detected Not Detected [facility] Adenovirus DNA Not Detected Not Detected [facility] Metapneumovirus RNA Not Detected Not Detected [facility] Rhinovirus/Enterov irus RNA Not Detected Not Detected [facility] Parainfluenza 1 RNA Not Detected Not Detected [facility] Parainfluenza 2 RNA Not Detected Not Detected [facility] Parainfluenza 3 RNA Not Detected Not Detected [facility] Parainfluenza 4 RNA Not Detected Not Detected [facility] B. pertussis DNA Not Detected Not Detected [facility] B. parapertussis DNA Not Detected Not Detected [facility] C. pneumoniae DNA Not Detected Not Detected [facility] M. pneumoniae DNA Not Detected Not Detected [facility] Nasopharyngeal 05/26/2024 7: 35 PM CDT 05/26/2024 7:47 PM CDT Narrative [facility] - 05/26/2024 8:55 PM CDT Is the Patient experiencing symptoms consistent with COVID?->Unknown Surveillance testing for transplant patient?->No Interpretive Data The [employer] FilmArray Respiratory Panel (RP2.1) assay is a multiplexed real-time PCR based nucleic acid test capable of simultaneous qualitative detection and identification of multiple respiratory viral and bacterial nucleic acids, including SARS Coronavirus 2 (the causative agent of COVID-19). The following bacteria, viruses and virus subtypes can be identified using the FilmArray RP2.1 assay: Bordetella pertussis, Bordetella parapertussis, Chlamydia pneumoniae, Mycoplasma pneumoniae, Adenovirus, SARS Coronavirus 2, seasonal coronaviruses (Coronavirus HKU1, Coronavirus NL63, Coronavirus 229E, and Coronavirus OC43), Influenza A, Influenza A subtype H1, Influenza A subtype H3, Influenza A subtype 2009 H1, Influenza B, Metapneumovirus, Parainfluenza 1, Parainfluenza 2, Parainfluenza 3, Parainfluenza 4, RSV, Rhinovirus/Enterovirus. Due to the genetic similarity between human Rhinovirus and Enterovirus, the FilmArray RP2.1 assay cannot reliably differentiate them. Coronavirus OC43 may cross-react with some isolates of Coronavirus HKU1. A dual positive result may be due to cross-reactivity or may indicate a co- infection. The detection and identification of specific viral and bacterial nucleic acids from individuals exhibiting signs and symptoms of a respiratory infection aids in the diagnosis of respiratory infection if used in conjunction with other clinical and epidemiological information. The results of this test should not be used as the sole basis for diagnosis, treatment, or other management decisions. Negative results in the setting of a respiratory illness may be due to infection with pathogens that are not detected by this test. Positive results do not rule out infection/co-infection with other organisms. The agent(s) detected by the FilmArray RP2.1 may not be the definite cause of disease. Additional testing (lab, imaging, etc.) may be necessary when evaluating a patient with possible respiratory tract infection. The FilmArray RP2.1 assay has FDA clearance for testing of CONTRACT PARALEGAL swabs. The performance of additional specimen types has been assessed by the performing laboratory. The performance characteristics of this assay have been determined by [facility]. Current interpretive data was last revised on 21. Keon Cavazos MD LAB MICROBIOLOGY - GEN ERAL ORDERABLES Final Result [facility] Department [place] [address] * ECG 12-LEAD (05/26/2024 6:54 PM CDT) Narrative [facility] - 05/26/2024 6:54 PM CDT Asha Nicholas MD 05/26/2024 6:55 PM ECG 12 lead Date/Time: 05/26/2024 6:54 PM Performed by: Asha Nicholas MD Authorized by: Rebekah Ayala MD Rate: ECG rate: 113 ECG rate assessment: tachycardic Rhythm: Rhythm: sinus tachycardia Ectopy: Ectopy: none QRS: QRS axis: Normal QRS intervals: Normal Conduction: Conduction: normal ST segments: ST segments: Normal T waves: T waves: non-specific Previous ECG: Previous ECG: Compared to current Similarity: No change Interpretation: Interpretation: No significant change Recommended Follow-up: Recommended follow up: further workup in the ED Procedure Note Asha Nicholas MD - 05/26/2024 6:54 PM CDT Procedure ECG 12 lead Date/Time: 05/26/2024 6:54 PM Performed by: Asha Nicholas MD Authorized by: Rebekah Ayala MD Rate: ECG rate: 113 ECG rate assessment: tachycardic Rhythm: Rhythm: sinus tachycardia Ectopy: Ectopy: none QRS: QRS axis: Normal QRS intervals: Normal Conduction: Conduction: normal ST segments: ST segments: Normal T waves: T waves: non-specific Previous ECG: Previous ECG: Compared to current Similarity: No change Interpretation: Interpretation: No significant change Recommended Follow-up: Recommended follow up: further workup in the ED Asha Nicholas MD 05/26/24 [id number] us Rebekah Ayala MD ECG ORDERABLES Final Resu lt [facility] * Troponin T high-sensitivity (05/26/2024 6:08 PM CDT) Pathologist [facility] Trop T hs <6 <=22 ng/L Blood 05/26/2024 6:08 PM CDT 05/26/2024 6:10 PM CDT Rebekah Ayala MD LAB BLOOD ORDERABLES Final Result [facility] [place] [address] * (ABNORMAL) eGFR (05/26/2024 6:08 PM CDT) eGFR 88(L) >=90 mL/min/1. 73 m2 Comment: Interpretive Data Reference [...] interpretive data was last reviewed 2020. Blood 05/26/2024 6:08 PM CDT 05/26/2024 6:10 PM CDT us Rebekah Ayala MD LAB BLOOD ORDERABLES Final Result [facility] Department [place] [address] * Pro B-type natriuretic peptide (05/26/2024 6:08 PM CDT) NT-proBNP <36 <=300 pg/mL Blood 05/26/2024 6:08 PM CDT 05/26/2024 6:10 PM CDT Narrative [facility] - 05/26/2024 6:52 PM CDT Interpretive Comments: A. Dyspnea in Acute Care [...] strain/failure (including pulmonary embolism and cor pulmonale), critcial illness, renal failure, as well as advanced age. - References: Long GOODRICH et.al. Eur Heart J. 2006:27:330-337. Messi RW, Samreen AM. J. AM Silvia Cardiol: Cardiovasc Imag. 2009;2: 216-225. Rebekah Ayala MD LAB BLOOD ORDERABLES Final Result Performing Organization Address [facility] de Phone Number [facility] [place] [address] * Beta-hydroxybutyrate (05/26/2024 6:08 PM CDT) Beta-Hydroxybutyrate 0.3 <=0.5 mmol/L Comment: Interpretive data This test was developed and its performance characteristics determined by [facility]. It has not been cleared or approved by the U.S. Food and Drug Administration. Current interpretive data was last revised on 2017 Blood 05/26/2024 6:08 PM CDT 05/26/2024 6:10 PM CDT Rebekah Ayala MD LAB BLOOD ORDERABLES Final Result Performing Organization Address [facility] Co de Phone Number [facility] [place] [address] * (ABNORMAL) CBC with auto differential (05/26/2024 6:08 PM CDT) WBC 14.46(H) 3.80 - 9.90 K/cumm Hgb 15.0 13.0 - 17.5 g/dL [facility] Hct 43.8 38.9 - 50.3 % [facility] Plt 173 150 - 400 K/cumm [facility] MPV 11.4 9.1 - 12.3 fL [facility] RBC 5.32 4.30 - 5.80 M/cumm [facility] MCV 82.3 81.3 - 96.4 fL [facility] MCH 28.2 27.1 - 33.3 pg [facility] MCHC 34.2 32.3 - 35.7 g/dL [facility] RDW CV 12.3 11.1 - 14.9 % [facility] RDW SD 37.3 35.7 - 48.1 fL [facility] NRBC abs 0.00 0.00 - 0.01 K/cumm [facility] Morphologic Screen Results confirmed by manual morphology review. [facility] Blood Venous blood specimen / Unknown 05/26/2024 6:08 PM CDT 05/26/2024 6:10 PM CDT us Rebekah Ayala MD LAB BLOOD ORDERABLES Edite d Result - Final [facility] Department [place] [address] * (ABNORMAL) Manual Differential (05/26/2024 6:08 PM CDT) Differential Manual Neutrophil abs 8.18(H) 1.50 - 6.50 K/cumm [facility] Lymphocyte abs 5.28(H) 0.80 - 3.30 K/cumm [facility] Monocyte abs 0.75 0.20 - 0.80 K/cumm [facility] Eosinophil abs 0.25 0.00 - 0.50 K/cumm [facility] Neutrophil pct 56.6 % [facility] Comment: Interpretive Data Percent cell count reference ranges are not reported, since discordance with absolute values may lead to misinterpretation of CBC data. Current Interpretive Data was last revised on 2017. Lymphocyte pct 33.9 % [facility] Comment: Interpretive Data Percent cell count reference ranges are not reported, since discordance with absolute values may lead to misinterpretation of CBC data. Current Interpretive Data was last revised on 2017. Monocyte pct 5.2 % [facility] Comment: Interpretive Data Percent cell count reference ranges are not reported, since discordance with absolute values may lead to misinterpretation of CBC data. Current Interpretive Data was last revised on 2017. Eosinophil pct 1.7 % [facility] Comment: Interpretive Data Percent cell count reference ranges are not reported, since discordance with absolute values may lead to misinterpretation of CBC data. Current Interpretive Data was last revised on 2017. Variant lymph pct 2.6(H) 0.0 - 0.0 % [facility] RBC morphology Normal [facility] Platelet estimate Adequate [facility] Blood 05/26/2024 6:08 PM CDT 05/26/2024 6:10 PM CDT us Rebekah Ayala MD LAB BLOOD ORDERABLES Final Result [facility] [place] [address] * D-dimer, quantitative (05/26/2024 6:08 PM CDT) D-Dimer <215 <=499 ng/mL FEU Comment: No clot detected in sample - [id number] - 05/26/24, 6:37 PM Interpretive data FDA approved the D-dimer, in [...] 68, VTE cut-off 680 ng/ml FEU. References; Schoutjamar HT et al. Brit Med J. 2013;346:f2492. Sherice et al. Annals Int Med. 2015;163:701-11. Current interpretive data was last revised on 2019. Testing performed by: [facility], [address] [place]., [address] Blood 05/26/2024 6:08 PM CDT 05/26/2024 6:10 PM CDT Rebekah Ayala MD LAB BLOOD ORDERABLES Final Result Performing Organization Address [facility] [place] [address] * Lipase (05/26/2024 6:08 PM CDT) Pathologist [facility] Lipase 15 10 - 99 Units/L Blood 05/26/2024 6:08 PM CDT 05/26/2024 6:10 PM CDT Rebekah Ayala MD LAB BLOOD ORDERABLES Final Result Performing Organization Address [facility] [place] [address] * Comprehensive metabolic panel (05/26/2024 6:08 PM CDT) Sodium 139 135 - 145 mmol/L Potassium, pl 3.4 3.3 - 4.9 mmol/L [facility] Chloride 104 97 - 110 mmol/L [facility] CO2 24 22 - 32 mmol/L [facility] Anion gap 11 2 - 15 mmol/L [facility] BUN 8 6 - 25 mg/dL [facility] Creatinine 1.11 0.80 - 1.30 mg/dL [facility] Glucose 109 70 - 199 mg/dL [facility] Comment: Interpretive Data Fasting glucose >/= [...] interpretive data was last revised 2022. Calcium 9.2 8.5 - 10.3 mg/dL [facility] Bilirubin, total 0.4 0.1 - 1.2 mg/dL [facility] Protein, pl 8.5 6.5 - 8.5 g/dL [facility] Albumin 4.7 3.5 - 5.0 g/dL [facility] Alk phos 54 40 - 130 Units/L [facility] ALT 20 7 - 55 Units/L [facility] AST 32 10 - 50 Units/L [facility] Blood 05/26/2024 6:08 PM CDT 05/26/2024 6:10 PM CDT Rebekah Ayala MD LAB BLOOD ORDERABLES Final Result Performing Organization Address City/[facility]/ZIP Co de Phone Number [facility] [place] [address] * POCT glucose (05/26/2024 6:03 PM CDT) Glucose, POC 105 70 - 199 mg/dL Blood 05/26/2024 6:03 PM CDT 05/26/2024 6:03 PM CDT Notinfile Unknown LAB POCT ORDERABLES - DEVICE F inal Result Performing Organization Address [facility] [place] [address] * Hemoglobin A1c (05/26/2024 6:00 PM CDT) Hgb A1C 5.4 4.0 - 5.6 % Estimated Average Glucose 108 mg/dL [facility] Comment: The ADA recommends reporting an estimated Average Glucose (eAG) with all Hemoglobin A1c results using the equation derived from a study of 507 normal and diabetic adults. Minority populations were underrepresented and children were not included. (Diabetes Care 31:5948-7204, 2008). The eAG is not equivalent to a fasting glucose. Blood 05/26/2024 6:00 PM CDT 05/26/2024 6:54 PM CDT us Rebekah Ayala MD LAB BLOOD ORDERABLES Final Result Performing Organization Address City/[facility]/ZIP Co de Phone Number [facility] [place] [address] * Troponin T high-sensitivity 2-hour (05/10/2024 7:01 [...] ORDERABLES Final Res ult Performing Organization Address [facility] Co de Phone Number [facility] [address] [place] [address] [place] [address] * XR Chest 1 Vw Portable (if [...] James Lewis M.D. AG: MARK Report ID: [id number] Reading Location: [id number] Procedure Note James Lewis MD - 05/10/2024 [...] James Lewis M.D. AG: MARK Report ID: [id number] Reading Location: [id number] Artem Soriano MD IMG XR PROCEDURES Final [...] BLOOD ORDERABLES Final Res ult [facility] [employer] [place] [address] * eGFR (05/10/2024 4:51 PM CDT) eGFR [...] Final Res ult [facility] [place] [address] * (ABNORMAL) Differential, auto (05/10/2024 4:51 PM CDT) Neutrophil abs 6.4 1.5 - 6.5 K/cumm Imm gran abs 0.0 0.0 - 0.1 K/cumm [facility] Lymphocyte abs 3.6(H) 0.8 - 3.3 K/cumm [...] Final Res ult [facility] ([facility]) [facility] [place] [address] * (ABNORMAL) CBC with auto differential (05/10/2024 4:51 PM CDT) Pathologist [facility] WBC 10.7(H) 3.8 - 9.9 K/cumm Hgb [...] Final Res ult [facility] [place] [address] * Comprehensive metabolic panel (05/10/2024 4:51 PM CDT) [facility] Sodium 137 135 - 145 mmol/L Potassium, [...] Final Res ult [facility] (JOY) 1 [facility] [place] [address] * ECG 12 lead (05/10/2024 4:44 PM CDT) 05/10/2024 4:44 PM CDT Narrative [facility] - 05/11/2024 10:24 AM CDT Vent Rate: 72 bpm RR Interval: 831 msec RI Interval: 154 msec QRS Duration: 94 msec QT Interval: 352 msec QTC Interval: 376 msec P-R-T [place]: 58 - 97 - -24 degrees IMPRESSION: SINUS RHYTHM BORDERLINE RIGHT AXIS DEVIATION [QRS AXIS > 90] Inferior T-wave inversions, consider ischemia ABNORMAL ECG Electronically Signed By: Abraham Nogueira MD Artem Soriano MD ECG ORDERABLES Final Result [facility] * XR Chest PA Lateral 2 Views (03/16/2024 11:20 PM SALES REPRESENTATIVE ADVERTISING) Anatomical Region Laterality Modality Body, Chest N/A Computed Radiogr aphy 03/16/2024 11:3 1 PM SALES REPRESENTATIVE ADVERTISING Impressions 03/17/2024 8:28 AM SALES REPRESENTATIVE ADVERTISING The current study is compared with the prior radiograph dated 05/14/2008. Lungs are clear. No pulmonary consolidation. No pleural effusion or pneumothorax. Normal cardiomediastinal silhouette. Dictated by: Kiana Alegre MD The radiology attending physician has personally reviewed this study, and had reviewed and/or edited this written report and agrees with it. Electronically signed by: Joseluis Amador M.D. Narrative 03/17/2024 8:28 AM SALES REPRESENTATIVE ADVERTISING EXAMINATION: 2 view chest radiograph Procedure Note [...] Result * ECG 12-LEAD (03/16/2024 11:00 PM SALES REPRESENTATIVE ADVERTISING) Narrative [facility] - 03/16/2024 11:00 PM SALES REPRESENTATIVE ADVERTISING Shannan Vieira MD 03/16/2024 11:01 PM ECG [...] risk for acs Shannan Vieira MD 03/16/24 [id number] us Lupe Jackson MD ECG ORDERABLES Fin al Result [facility] * Troponin I high-sensitivity series (baseline, 2hr, 4hr, 6hr) (03/16/2024 10:55 PM SALES REPRESENTATIVE ADVERTISING) Trop I hs <4 <=35 ng/L Comment: Interpretive Data For further hscTnI resources including the diagnostic algorithm and an aid in interpretation, copy and paste this link: https://bjhlab.testcatalog.org/show/[email or web address] Current Interpretive Data last revised 2019. Blood 03/16/2024 10:5 5 PM SALES REPRESENTATIVE ADVERTISING 03/16/2024 11:11 PM SALES REPRESENTATIVE ADVERTISING us Lupe Jackson MD LAB BLOOD ORDERABLE S Final Result [facility] Department [place] [address] * Pro B-type natriuretic peptide (03/16/2024 10:55 PM SALES REPRESENTATIVE ADVERTISING) NT-proBNP <50 <=300 pg/mL Comment: Interpretive Comments: [...] Date: 2017. Blood 03/16/2024 10:5 5 PM SALES REPRESENTATIVE ADVERTISING 03/16/2024 11:11 PM SALES REPRESENTATIVE ADVERTISING us Lupe Jackson MD LAB BLOOD ORDERABLE S Final Result Performing Organization Address [facility] de Phone Number [facility] Department [place] [address] * Urinalysis reflex to microscopic (03/16/2024 10:55 PM SALES REPRESENTATIVE ADVERTISING) Color, ur Straw Yellow Clarity, ur Clear Clear [facility] Specific gravity, ur 1.016 1.003 - 1.030 [facility] pH, urine 6.0 [facility] Comment: Interpretive Data U rine pH is affected by diet, medications, systemic acid-base disturbances, and renal tubular function. pH may affect urinary stone formation. For example, urine pH below 6.0 may help reduce the tendency for calcium phosphate stones and pH greater than 6.0 may reduce the tendency for uric acid stone formation. Source: [facility] Current Interpretive Data was last revised on 2017 Protein, ur ql Negative Negative [facility] Glucose, ur ql Negative Negative [facility] Ketones, ur Negative Negative [facility] Bilirubin, ur Negative Negative [facility] Blood, ur Negative Negative [facility] Urobilinogen, ur <2.0 <2.0 mg/dL [facility] Nitrite, ur Negative Negative [facility] Leukocyte esterase, ur Negative Negative [facility] UA reflex comment Reflex conditions for microscopic UA not met. [facility] Urine 03/16/2024 10:5 5 PM SALES REPRESENTATIVE ADVERTISING 03/16/2024 11:04 PM SALES REPRESENTATIVE ADVERTISING us Nikkie Marmolejo MD LAB URINE ORDERABLES Fin al Result Performing Organization Address [facility]/ZIP Co de Phone Number [facility] Department [place] [address] * aPTT (03/16/2024 10:55 PM SALES REPRESENTATIVE ADVERTISING) aPTT 34 28 - 38 sec Comment: Interpretive Data Heparin therapeutic range: 66.0 - 100.0 seconds. Range based on correlation with therapeutic heparin activity range of 0.3 - 0.7 Units/mL. Current interpretive data was last revised on 2022. Blood 03/16/2024 10:5 5 PM SALES REPRESENTATIVE ADVERTISING 03/17/2024 12:29 AM SALES REPRESENTATIVE ADVERTISING Nikkie Marmolejo MD LAB BLOOD ORDERABLES Fin al Result Performing Organization Address [facility] de Phone Number [facility] [place] [place] [employer] [address] * Protime-INR (03/16/2024 10:55 PM SALES REPRESENTATIVE ADVERTISING) Pathologist [facility] PT 12.3 9.7 - 13.0 sec INR 1.14 0.90 - 1.20 [facility] Comment: Interpretive data Oral anticoagulant therapeutic ranges: Venous thromboembolism prophylaxis or treatment: 2.0-3.0 CARDIOLOGY Standard range: 2.0-3.0 High-intensity range: 2.5-3.5 Refer to indication-specific guidelines for appropriate target ranges for prosthetic heart valve replacement. Current interpretive data was last revised on 2019. Blood 03/16/2024 10:5 5 PM SALES REPRESENTATIVE ADVERTISING 03/17/2024 12:29 AM SALES REPRESENTATIVE ADVERTISING Result [facility] Nikkie Marmolejo MD LAB BLOOD ORDERABLES Fin al Result Performing Organization Address [facility] de Phone Number [facility] [place] [place] [address] * D-dimer, quantitative (03/16/2024 10:55 PM SALES REPRESENTATIVE ADVERTISING) Pathologist [facility] D-Dimer <215 <=499 ng/mL FEU Comment: Interpretive [...] VTE cut-off 680 ng/ml FEU. References; Schmelodie HT et al. Brit Med J. 2013;346:f2492. Sherice et al. Annals Int Med. 2015;163:701-11. Current interpretive data was last revised on 2019. Blood 03/16/2024 10:5 5 PM SALES REPRESENTATIVE ADVERTISING 03/17/2024 12:29 AM SALES REPRESENTATIVE ADVERTISING us Lupe Jackson MD LAB BLOOD ORDERABLE S Final Result [facility] Department [place] [address] * eGFR (03/16/2024 3:41 PM SALES REPRESENTATIVE ADVERTISING) eGFR >90 >=60 mL/min/1. 73 m2 Comment: [...] last reviewed 2020. Blood 03/16/2024 3:41 PM SALES REPRESENTATIVE ADVERTISING 03/16/2024 4:17 PM SALES REPRESENTATIVE ADVERTISING us Nikkie Marmolejo MD LAB BLOOD ORDERABLES Fin al Result [facility] Department [place] [address] * (ABNORMAL) Differential, auto (03/16/2024 3:41 PM SALES REPRESENTATIVE ADVERTISING) Neutrophil abs 4.1 1.5 - 6.5 K/cumm Imm gran abs 0.0 0.0 - 0.1 K/cumm [facility] Lymphocyte abs 3.7(H) 0.8 - 3.3 K/cumm [facility] Monocyte abs 0.5 0.2 - 0.8 K/cumm [facility] Eosinophil abs 0.1 0.0 - 0.5 K/cumm [facility] Basophil abs 0.0 0.0 - 0.1 K/cumm [facility] Neutrophil pct 48.7 % [facility] Comment: Interpretive Data Percent cell count reference ranges are not reported, since discordance with absolute values may lead to misinterpretation of CBC data. Current Interpretive Data was last revised on 2017. Imm gran pct 0.2 % [facility] Comment: Interpretive Data Percent cell count reference ranges are not reported, since discordance with absolute values may lead to misinterpretation of CBC data. Current Interpretive Data was last revised on 2017. Lymphocyte pct 43.4 % [facility] Comment: Interpretive Data Percent cell count reference ranges are not reported, since discordance with absolute values may lead to misinterpretation of CBC data. Current Interpretive Data was last revised on 2017. Monocyte pct 5.9 % [facility] Comment: Interpretive Data Percent cell count reference ranges are not reported, since discordance with absolute values may lead to misinterpretation of CBC data. Current Interpretive Data was last revised on 2017. Eosinophil pct 1.4 % [facility] Comment: Interpretive Data Percent cell count reference ranges are not reported, since discordance with absolute values may lead to misinterpretation of CBC data. Current Interpretive Data was last revised on 2017. Basophil pct 0.4 % [facility] Comment: Interpretive Data Percent cell count reference ranges are not reported, since discordance with absolute values may lead to misinterpretation of CBC data. Current Interpretive Data was last revised on 2017. Blood 03/16/2024 3:41 PM SALES REPRESENTATIVE ADVERTISING 03/16/2024 4:17 PM SALES REPRESENTATIVE ADVERTISING Nikkie Marmolejo MD LAB BLOOD ORDERABLES Fin al Result Performing Organization Address City/[facility]/ZIP Co de Phone Number [facility] Department [place] [address] * (ABNORMAL) CBC with auto differential (03/16/2024 3:41 PM SALES REPRESENTATIVE ADVERTISING) WBC 8.4 3.8 - 9.9 K/cumm Hgb 14.3 13.0 - 17.5 g/dL [facility] Hct 43.6 38.9 - 50.3 % [facility] Plt 114(L) 150 - 400 K/cumm [facility] MPV 12.3 9.1 - 12.3 fL [facility] RBC 5.18 4.30 - 5.80 M/cumm [facility] MCV 84.2 81.3 - 96.4 fL [facility] MCH 27.6 27.1 - 33.3 pg [facility] MCHC 32.8 32.3 - 35.7 g/dL [facility] RDW CV 12.6 11.1 - 14.9 % [facility] RDW SD 38.5 35.7 - 48.1 fL [facility] NRBC abs 0.00 0.00 - 0.01 K/cumm [facility] Blood Venous blood specimen / Unknown 03/16/2024 3:41 PM SALES REPRESENTATIVE ADVERTISING 03/16/2024 4:17 PM SALES REPRESENTATIVE ADVERTISING Nikkie Marmolejo MD LAB BLOOD ORDERABLES Fin al Result [facility] [place] [address] * Lipase (03/16/2024 3:41 PM SALES REPRESENTATIVE ADVERTISING) Lipase 12 10 - 99 Units/L Blood Venous blood specimen / Unknown 03/16/2024 3:41 PM SALES REPRESENTATIVE ADVERTISING 03/16/2024 4:17 PM SALES REPRESENTATIVE ADVERTISING us Nikkie Marmolejo MD LAB BLOOD ORDERABLES Fin al Result [facility] Department [place] [address] * Comprehensive metabolic panel (03/16/2024 3:41 PM SALES REPRESENTATIVE ADVERTISING) Pathologist [facility] Sodium 140 135 - 145 mmol/L Potassium, pl 4.0 3.3 - 4.9 mmol/L [facility] Chloride 104 97 - 110 mmol/L [facility] CO2 28 22 - 32 mmol/L [facility] Anion gap 8 2 - 15 mmol/L [facility] BUN 7 6 - 25 mg/dL [facility] Creatinine 1.08 0.80 - 1.30 mg/dL [facility] Glucose 100 70 - 199 mg/dL [facility] Comment: Interpretive Data Fasting [...] 2022. Calcium 9.1 8.5 - 10.3 mg/dL [facility] Bilirubin, total 0.5 0.1 - 1.2 mg/dL [facility] Protein, pl 7.8 6.5 - 8.5 g/dL [facility] Albumin 4.3 3.5 - 5.0 g/dL [facility] Alk phos 62 40 - 130 Units/L [facility] ALT 30 7 - 55 Units/L [facility] AST 37 10 - 50 Units/L [facility] Blood 03/16/2024 3:41 PM SALES REPRESENTATIVE ADVERTISING 03/16/2024 4:17 PM SALES REPRESENTATIVE ADVERTISING Nikkie Marmolejo MD LAB BLOOD ORDERABLES Fin al Result Performing Organization Address [facility] Co de Phone Number [facility] Department [place] [address] * (ABNORMAL) Hepatitis C antibody (09/14/2022 8:25 [...] ORDER THOMAS Final Result Performing Organization Address 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
--- OUTSIDE RECORDS SUMMARY | 2024-06-13 10:24 | XMS_ITS | Clinical Summary ---
Author Organization [facility] Address [address] [place] [address] Care Team Providers Care Office Machine Servicer Name Role Phone Roland Knight NP Primary Care Provider [phone] Allergies Active Allergy Reactions Criticality Noted Date [...] 3 tablets (54 mg total) by mouth student career development specialist before breakfast Active metoprolol XL (TOPROL-XL) 50 [...] Department Care Team Description 05/27/2024 Results Follow-Up [facility] [place] [address] Keila Cornejo NP 05/26/2024 6:58 PM CDT - 05/26/2024 8:30 PM CDT Emergency [facility] Emergency Department [address] [place] [phone] Asha Nicholas MD Chest pain, unspecified type (Primary Dx) Discharge Disposition: Discharge to home or self care 05/26/2024 6:02 PM CDT - 05/26/2024 6:39 PM CDT Emergency [facility] [place] [address] Rebekah Ayala MD Chest pain, unspecified type (Primary Dx); Diaphoresis; Sinus tachycardia Discharge Disposition: Discharge to a critical access hospital 05/10/2024 5:03 PM CDT - 05/10/2024 9:18 PM CDT Emergency [facility] Emergency Department [address] [place] [address] Chest pain, unspecified type (Primary Dx) Discharge Disposition: Discharge to home or self care 03/16/2024 9:02 PM FINANCIAL SYSTEMS ANALYST - 03/17/2024 3:05 AM [facility] Emergency [facility] Emergency Department [address] [place] [phone] Nikkie Marmolejo MD Generalized weakness (Primary Dx); Thrombocytopenia; Family history of autoimmune disorder Discharge Disposition: Discharge to home or self care from Last 3 Months Social History Tobacco [...] on file Legal Sex Male 4:57 AM FINANCIAL SYSTEMS ANALYST Gender Identity Not on file Sexual Orientation [...] 05/26/2024 6:43 PM CDT Plan of Treatment Health Maintenance Due Date Last Done Comments Depression Screening 1987 Varicella Vaccines (1 of 2 - 13+ 2-dose series) 08/23/2000 Regular Well Visit/Exam 18-64 08/23/2005 Covid-19 Vaccine (2 - 2023-2 5 season) 2023 06/25/2020 Influenza Vaccine (Season Ended) 2024 12/28/2008 DTaP/Tdap/Td Vaccine (3 - Td or [...] LATERAL 2 VIEWS ED 03/16/2024 11:20 PM FINANCIAL SYSTEMS ANALYST ECG 12-LEAD STAT 03/16/2024 11:00 PM FINANCIAL SYSTEMS ANALYST PROTIME-INR STAT 03/16/2024 10:55 PM FINANCIAL SYSTEMS ANALYST APTT STAT 03/16/2024 10:55 PM FINANCIAL SYSTEMS ANALYST D-DIMER, QUANTITATIVE STAT 03/16/2024 10:55 PM FINANCIAL SYSTEMS ANALYST PRO B-TYPE NATRIURETIC PEPTIDE STAT 03/16/2024 10:55 PM FINANCIAL SYSTEMS ANALYST TROPONIN I HIGH-SENSITIVITY SERIES (BASELINE, 2HR, 4HR, 6HR) STAT 03/16/2024 10:55 PM FINANCIAL SYSTEMS ANALYST URINALYSIS AND REFLEX TO MICROSCOPIC STAT 03/16/2024 10:55 PM FINANCIAL SYSTEMS ANALYST EGFR STAT 03/16/2024 3:41 PM FINANCIAL SYSTEMS ANALYST DIFFERENTIAL AUTO STAT 03/16/2024 3:4 1 PM FINANCIAL SYSTEMS ANALYST LIPASE STAT 03/16/2024 3:41 PM FINANCIAL SYSTEMS ANALYST COMPREHENSIVE METABOLIC PANEL STAT 03/16/2024 3:41 PM FINANCIAL SYSTEMS ANALYST CBC WITH AUTO DIFFERENTIAL STAT 03/16/2024 3:41 PM FINANCIAL SYSTEMS ANALYST HEPATITIS C ANTIBODY Routine 09/14/2022 8:25 AM [...] the ED Keon Cavazos MD Resident 05/26/242033 us Keon Cavazos MD ECG ORDERABLES Final Result [...] 2hr, 4hr, 6hr) (05/26/2024 7:35 PM CDT) Trop I hs <4 <=35 ng/L Comment: Interpretive Data For further hscTnI resources including the diagnostic algorithm and an aid in interpretation, copy and paste this link: https://bjhlab.testcatalog.org/show/hsTrop-1 Current Interpretive Data last revised 2019. Blood 05/26/2024 7:35 PM CDT 05/26/2024 7:55 PM CDT Asha Nicholas MD LAB BLOOD ORDERABLES Final Result [facility] [place] [address] * Respiratory pathogen panel Nasopharyngeal (05/26/2024 7:35 PM CDT) Pathologist [facility] Influenza A RNA Not Detected Not Detected Influenza B RNA Not Detected Not Detected [facility] RSV RNA Not Detected Not Detected [facility] COVID-19 RNA Not Detected Not Detected [facility] Coronavirus 229E RNA Not Detected Not Detected [facility] Coronavirus HKU1 RNA Not Detected Not Detected [facility] Coronavirus NL63 RNA Not Detected Not Detected [facility] Coronavirus OC43 RNA Not Detected Not Detected [facility] Adenovirus DNA Not Detected Not Detected [facility] Metapneumovirus RNA Not Detected Not Detected [facility] Rhinovirus/Enterov irus RNA Not Detected Not Detected [facility] Parainfluenza 1 RNA Not Detected Not Detected [facility] Parainfluenza 2 RNA Not Detected Not Detected [facility] Parainfluenza 3 RNA Not Detected Not Detected [facility] Parainfluenza 4 RNA Not Detected Not Detected [facility] B. pertussis DNA Not Detected Not Detected [facility] B. parapertussis DNA Not Detected Not Detected [facility] C. pneumoniae DNA Not Detected Not Detected [facility] M. pneumoniae DNA Not Detected Not Detected [facility] Nasopharyngeal 05/26/2024 7: 35 PM CDT 05/26/2024 7:47 PM CDT Narrative [facility] - 05/26/2024 8:55 PM CDT Is the Patient experiencing symptoms consistent with COVID?->Unknown Surveillance testing for transplant patient?->No Interpretive Data [employer] FilmArray Respiratory Panel (RP2.1) assay is a [...] assay has FDA clearance for testing of LAP WINDING MACHINE OPERATOR swabs. The performance of additional specimen types has been assessed by the performing laboratory. The performance characteristics of this assay have been determined by [facility] Molecular Infectious Disease Laboratory. Current interpretive data was last revised on 21. Keon Cavazos MD LAB MICROBIOLOGY - GEN ERAL ORDERABLES Final Result Performing Organization Address City/[facility]/ZIP Co de Phone Number CHARISSE ZAIDI [facility] [place] [address] * ECG 12-LEAD (05/26/2024 6:54 PM CDT) Narrative [facility] - 05/26/2024 6:54 PM CDT Asha [...] in the ED Asha Nicholas MD 05/26/24 [id number] us Rebekah Ayala MD ECG ORDERABLES Final Resu lt [facility] * Troponin T high-sensitivity (05/26/2024 6:08 PM CDT) Trop T hs <6 <=22 ng/L Blood 05/26/2024 6:08 PM CDT 05/26/2024 6:10 PM CDT Rebekah Ayala MD LAB BLOOD ORDERABLES Final Result Performing Organization Address [facility] [place] [address] * (ABNORMAL) eGFR (05/26/2024 6:08 PM CDT) [facility] eGFR 88(L) >=90 mL/min/1. 73 m2 Comment: [...] BLOOD ORDERABLES Final Result Performing Organization Address [facility] Co de Phone Number [facility] [employer] [place] [address] * Pro B-type natriuretic peptide (05/26/2024 6:08 PM CDT) [facility] NT-proBNP <36 <=300 pg/mL Blood 05/26/2024 6:08 PM CDT 05/26/2024 6:10 PM CDT Narrative [facility] - 05/26/2024 6:52 PM CDT Interpretive Comments: [...] Ayala MD LAB BLOOD ORDERABLES Final Result [facility] [place] [address] * Beta-hydroxybutyrate (05/26/2024 6:08 PM CDT) Beta-Hydroxybutyrate 0.3 <=0.5 mmol/L Comment: Interpretive data This test was developed and its performance characteristics determined by [facility]. It has not been cleared or approved by the U.S. Food and Drug Administration. Current interpretive data was last revised on 2017 Blood 05/26/2024 6:08 PM CDT 05/26/2024 6:10 PM CDT Rebekah Ayala MD LAB BLOOD ORDERABLES Final Result Performing Organization Address [facility] [place] [address] * (ABNORMAL) CBC with auto differential (05/26/2024 6:08 PM CDT) WBC 14.46(H) 3.80 - 9.90 K/cumm Hgb 15.0 13.0 - 17.5 g/dL [facility] Hct 43.8 38.9 - 50.3 % [facility] Plt 173 150 - 400 K/cumm [facility] MPV 11.4 9.1 - 12.3 fL [facility] RBC 5.32 4.30 - 5.80 M/cumm [facility] MCV 82.3 81.3 - 96.4 fL [facility] MCH 28.2 27.1 - 33.3 pg [facility] MCHC 34.2 32.3 - 35.7 g/dL [facility] RDW CV 12.3 11.1 - 14.9 % [facility] RDW SD 37.3 35.7 - 48.1 fL [facility] NRBC abs 0.00 0.00 - 0.01 K/cumm [facility] Morphologic Screen Results confirmed by manual morphology review. [facility] Blood Venous blood specimen / Unknown 05/26/2024 6:08 PM CDT 05/26/2024 6:10 PM CDT Rebekah Ayala MD LAB BLOOD ORDERABLES Edite d Result - Final Performing Organization Address [facility] [place] [address] * (ABNORMAL) Manual Differential (05/26/2024 6:08 PM CDT) Pathologist [facility] Differential Manual Neutrophil abs 8.18(H) 1.50 - 6.50 K/cumm [facility] Lymphocyte abs 5.28(H) 0.80 - 3.30 K/cumm [facility] Monocyte abs 0.75 0.20 - 0.80 K/cumm [facility] Eosinophil abs 0.25 0.00 - 0.50 K/cumm [facility] Neutrophil pct 56.6 % [facility] Comment: Interpretive Data Percent cell count reference ranges are not reported, since discordance with absolute values may lead to misinterpretation of CBC data. Current Interpretive Data was last revised on 2017. Lymphocyte pct 33.9 % [facility] Comment: Interpretive Data Percent cell count reference ranges are not reported, since discordance with absolute values may lead to misinterpretation of CBC data. Current Interpretive Data was last revised on 2017. Monocyte pct 5.2 % [facility] Comment: Interpretive Data Percent cell count reference ranges are not reported, since discordance with absolute values may lead to misinterpretation of CBC data. Current Interpretive Data was last revised on 2017. Eosinophil pct 1.7 % [facility] Comment: Interpretive Data Percent cell count reference ranges are not reported, since discordance with absolute values may lead to misinterpretation of CBC data. Current Interpretive Data was last revised on 2017. Variant lymph pct 2.6(H) 0.0 - 0.0 % [facility] RBC morphology Normal [facility] Platelet estimate Adequate [facility] Blood 05/26/2024 6:08 PM CDT 05/26/2024 6:10 PM CDT us Rebekah Ayala MD LAB BLOOD ORDERABLES Final Result [facility] [place] [address] * D-dimer, quantitative (05/26/2024 6:08 PM CDT) [facility] D-Dimer <215 <=499 ng/mL FEU Comment: No clot detected in sample - [id number] - 05/26/24, 6:37 PM Interpretive data FDA [...] last revised on 2019. Testing performed by: [facility], [address] [place] [address]., [id number] Blood 05/26/2024 6:08 PM CDT 05/26/2024 6:10 PM CDT Rebekah Ayala MD LAB BLOOD ORDERABLES Final Result Performing Organization Address City/[facility]/ZIP Co de Phone Number [facility] [employer] [place] [address] * Lipase (05/26/2024 6:08 PM CDT) Lipase 15 10 - 99 Units/L Blood 05/26/2024 6:08 PM CDT 05/26/2024 6:10 PM CDT Rebekah Ayala MD LAB BLOOD ORDERABLES Final Result Performing Organization Address City/[facility]/[place] [address] * Comprehensive metabolic panel (05/26/2024 6:08 PM CDT) Sodium 139 135 - 145 mmol/L Potassium, pl 3.4 3.3 - 4.9 mmol/L [facility] Chloride 104 97 - 110 mmol/L [facility] CO2 24 22 - 32 mmol/L [facility] Anion gap 11 2 - 15 mmol/L [facility] BUN 8 6 - 25 mg/dL [facility] Creatinine 1.11 0.80 - 1.30 mg/dL [facility] Glucose 109 70 - 199 mg/dL [facility] Comment: Interpretive Data Fasting glucose [...] 2022. Calcium 9.2 8.5 - 10.3 mg/dL [facility] Bilirubin, total 0.4 0.1 - 1.2 mg/dL [facility] Protein, pl 8.5 6.5 - 8.5 g/dL [facility] Albumin 4.7 3.5 - 5.0 g/dL [facility] Alk phos 54 40 - 130 Units/L [facility] ALT 20 7 - 55 Units/L [facility] AST 32 10 - 50 Units/L [facility] Blood 05/26/2024 6:08 PM CDT 05/26/2024 6:10 PM CDT us Rebekah Ayala MD LAB BLOOD ORDERABLES Final Result [facility] [place] [address] * POCT glucose (05/26/2024 6:03 PM CDT) Glucose, POC 105 70 - 199 mg/dL Blood 05/26/2024 6:03 PM CDT 05/26/2024 6:03 PM CDT us Notinfile Unknown LAB POCT ORDERABLES - DEVICE F inal Result Performing Organization Address [facility] [place] [address] * Hemoglobin A1c (05/26/2024 6:00 PM CDT) [facility] Hgb A1C 5.4 4.0 - 5.6 % Estimated Average Glucose 108 mg/dL [facility] Comment: The ADA recommends reporting an estimated Average Glucose (eAG) with all Hemoglobin A1c results using the equation derived from a study of 507 normal and diabetic adults. Minority populations were underrepresented and children were not included. (Diabetes Care 31:0166-7845, 2008). The eAG is not equivalent to a fasting glucose. Blood 05/26/2024 6:00 PM CDT 05/26/2024 6:54 PM CDT us Rebekah Ayala MD LAB BLOOD ORDERABLES Final Result Performing Organization Address [facility] [place] [address] * Troponin T high-sensitivity 2-hour (05/10/2024 7:01 PM CDT) [facility] Trop T hs <6 <=22 ng/L Comment: [...] ORDERABLES Final Res ult Performing Organization Address [facility]/ZIP Co de Phone Number [facility] ([facility]) [facility] Department [place] [address] * XR Chest 1 Vw Portable (if [...] James Lewis M.D. AG: MARK Report ID: [id number] Reading Location: [id number] Procedure Note James Lewis MD - 05/10/2024 [...] James Lewis M.D. AG: MARK Report ID: [id number] Reading Location: [id number] us Artem Soriano MD IMG XR PROCEDURES Final [...] BLOOD ORDERABLES Final Res ult [facility] [place] [address] * eGFR (05/10/2024 4:51 PM [...] Final Res ult [facility] ([place]) [facility] [place] [address] * (ABNORMAL) Differential, auto (05/10/2024 4:51 PM [...] Final Res ult [facility] ([place]) [facility] [place] [address] * (ABNORMAL) CBC with auto differential (05/10/2024 [...] Final Res ult [facility] ([place]) [facility] [place] [address] * Comprehensive metabolic panel (05/10/2024 4:51 PM [...] (JOY) AST 26 10 - 50 Units/L [facility] ([place]) Comment:Slightly Hemolyzed S pecimen Blood 05/10/2024 4:51 PM CDT 05/10/2024 5:00 PM CDT Artem Soriano MD LAB BLOOD ORDERABLES Final Res ult Performing Organization Address [facility] Co de Phone Number CHARISSE ROYAL ([place]) [facility] [place] [address] * ECG 12 lead (05/10/2024 4:44 PM CDT) 05/10/2024 4:44 PM CDT Narrative [facility] - 05/11/2024 10:24 AM CDT Vent Rate: 72 bpm RR Interval: 831 msec NV Interval: 154 msec QRS Duration: 94 msec QT Interval: 352 msec QTC Interval: 376 msec P-R-T [place]: 58 - 97 - -24 degrees IMPRESSION: SINUS RHYTHM BORDERLINE RIGHT AXIS DEVIATION [QRS AXIS > 90] Inferior T-wave inversions, consider ischemia ABNORMAL ECG Electronically Signed By: Abraham Nogueira MD Artem Soriano MD ECG ORDERABLES Final Result Performing Organization Address [facility] Phone Number [facility] [employer] [facility] * XR Chest PA Lateral 2 Views (03/16/2024 11:20 PM FINANCIAL SYSTEMS ANALYST) Anatomical Region Laterality Modality Body, Chest N/A Computed Radiogr aphy 03/16/2024 11:3 1 PM FINANCIAL SYSTEMS ANALYST Impressions 03/17/2024 8:28 AM FINANCIAL SYSTEMS ANALYST The current study is compared with the prior radiograph dated 05/14/2008. Lungs are clear. No pulmonary consolidation. No pleural effusion or pneumothorax. Normal cardiomediastinal silhouette. Dictated by: Kiana Alegre MD The radiology attending physician has personally reviewed this study, and had reviewed and/or edited this written report and agrees with it. Electronically signed by: Joseluis Amador M.D. Narrative 03/17/2024 8:28 AM FINANCIAL SYSTEMS ANALYST EXAMINATION: 2 view chest radiograph Procedure Note [...] Result * ECG 12-LEAD (03/16/2024 11:00 PM FINANCIAL SYSTEMS ANALYST) Narrative [facility] - 03/16/2024 11:00 PM FINANCIAL SYSTEMS ANALYST Shannan Vieira MD 03/16/2024 11:01 PM ECG [...] Jackson MD ECG ORDERABLES Fin al Result [facility] * Troponin I high-sensitivity series (baseline, 2hr, 4hr, 6hr) (03/16/2024 10:55 PM FINANCIAL SYSTEMS ANALYST) Trop I hs <4 <=35 ng/L Comment: Interpretive Data For further hscTnI resources including the diagnostic algorithm and an aid in interpretation, copy and paste this link: https://bjhlab.testcatalog.org/show/hsTrop-1 Current Interpretive Data last revised 2019. Blood 03/16/2024 10:5 5 PM FINANCIAL SYSTEMS ANALYST 03/16/2024 11:11 PM FINANCIAL SYSTEMS ANALYST Lupe Jackson MD LAB BLOOD ORDERABLE S Final Result Performing Organization Address City/[facility]/ZIP Co de Phone Number [facility] [place] [address] * Pro B-type natriuretic peptide (03/16/2024 10:55 PM FINANCIAL SYSTEMS ANALYST) NT-proBNP <50 <=300 pg/mL Comment: Interpretive Comments: [...] Date: 2017. Blood 03/16/2024 10:5 5 PM FINANCIAL SYSTEMS ANALYST 03/16/2024 11:11 PM FINANCIAL SYSTEMS ANALYST Lupe Jackson MD LAB BLOOD ORDERABLE S Final Result [facility] [place] [address] * Urinalysis reflex to microscopic (03/16/2024 10:55 PM FINANCIAL SYSTEMS ANALYST) Color, ur Straw Yellow Clarity, ur Clear Clear [facility] Specific gravity, ur 1.016 1.003 - 1.030 [facility] pH, urine 6.0 [facility] Comment: Interpretive Data U rine pH is affected by diet, medications, systemic acid-base disturbances, and renal tubular function. pH may affect urinary stone formation. For example, urine pH below 6.0 may help reduce the tendency for calcium phosphate stones and pH greater than 6.0 may reduce the tendency for uric acid stone formation. Source: [employer] Current Interpretive Data was last revised on 2017 Protein, ur ql Negative Negative [facility] Glucose, ur ql Negative Negative [facility] Ketones, ur Negative Negative [facility] Bilirubin, ur Negative Negative [facility] Blood, ur Negative Negative [facility] Urobilinogen, ur <2.0 <2.0 mg/dL [facility] Nitrite, ur Negative Negative [facility] Leukocyte esterase, ur Negative Negative [facility] UA reflex comment Reflex conditions for microscopic UA not met. [facility] Urine 03/16/2024 10:5 5 PM FINANCIAL SYSTEMS ANALYST 03/16/2024 11:04 PM FINANCIAL SYSTEMS ANALYST Nikkie Marmolejo MD LAB URINE ORDERABLES Fin al Result Performing Organization Address [facility] de Phone Number [facility] [employer] [place] [address] * aPTT (03/16/2024 10:55 PM FINANCIAL SYSTEMS ANALYST) aPTT 34 28 - 38 sec Comment: Interpretive Data Heparin therapeutic range: 66.0 - 100.0 seconds. Range based on correlation with therapeutic heparin activity range of 0.3 - 0.7 Units/mL. Current interpretive data was last revised on 2022. Blood 03/16/2024 10:5 5 PM FINANCIAL SYSTEMS ANALYST 03/17/2024 12:29 AM FINANCIAL SYSTEMS ANALYST Nikkie Marmolejo MD LAB BLOOD ORDERABLES Fin al Result Performing Organization Address [facility] de Phone Number [facility] [employer] [place] [address] * Protime-INR (03/16/2024 10:55 PM FINANCIAL SYSTEMS ANALYST) PT 12.3 9.7 - 13.0 sec INR 1.14 0.90 - 1.20 [facility] Comment: Interpretive data Oral anticoagulant therapeutic ranges: Venous thromboembolism prophylaxis or treatment: 2.0-3.0 CARDIOLOGY Standard range: 2.0-3.0 High-intensity range: 2.5-3.5 Refer to indication-specific guidelines for appropriate target ranges for prosthetic heart valve replacement. Current interpretive data was last revised on 2019. Blood 03/16/2024 10:5 5 PM FINANCIAL SYSTEMS ANALYST 03/17/2024 12:29 AM FINANCIAL SYSTEMS ANALYST us Nikkie Marmolejo MD LAB BLOOD ORDERABLES Fin al Result Performing Organization Address [facility] Co de Phone Number [facility] [place] [address] * D-dimer, quantitative (03/16/2024 10:55 PM FINANCIAL SYSTEMS ANALYST) D-Dimer <215 <=499 ng/mL FEU Comment: Interpretive [...] on 2019. Blood 03/16/2024 10:5 5 PM FINANCIAL SYSTEMS ANALYST 03/17/2024 12:29 AM FINANCIAL SYSTEMS ANALYST us Lupe Jackson MD LAB BLOOD ORDERABLE S Final Result Performing Organization Address City/[facility] Co de Phone Number [facility] [place] [address] * eGFR (03/16/2024 3:41 PM FINANCIAL SYSTEMS ANALYST) eGFR >90 >=60 mL/min/1. 73 m2 Comment: [...] last reviewed 2020. Blood 03/16/2024 3:41 PM FINANCIAL SYSTEMS ANALYST 03/16/2024 4:17 PM FINANCIAL SYSTEMS ANALYST us Nikkie Marmolejo MD LAB BLOOD ORDERABLES Fin al Result [facility] [place] [address] * (ABNORMAL) Differential, auto (03/16/2024 3:41 PM FINANCIAL SYSTEMS ANALYST) Neutrophil abs 4.1 1.5 - 6.5 K/cumm Imm gran abs 0.0 0.0 - 0.1 K/cumm [facility] Lymphocyte abs 3.7(H) 0.8 - 3.3 K/cumm [facility] Monocyte abs 0.5 0.2 - 0.8 K/cumm [facility] Eosinophil abs 0.1 0.0 - 0.5 K/cumm [facility] Basophil abs 0.0 0.0 - 0.1 K/cumm [facility] Neutrophil pct 48.7 % [facility] Comment: Interpretive Data Percent cell count reference ranges are not reported, since discordance with absolute values may lead to misinterpretation of CBC data. Current Interpretive Data was last revised on 2017. Imm gran pct 0.2 % [facility] Comment: Interpretive Data Percent cell count reference ranges are not reported, since discordance with absolute values may lead to misinterpretation of CBC data. Current Interpretive Data was last revised on 2017. Lymphocyte pct 43.4 % [facility] Comment: Interpretive Data Percent cell count reference ranges are not reported, since discordance with absolute values may lead to misinterpretation of CBC data. Current Interpretive Data was last revised on 2017. Monocyte pct 5.9 % [facility] Comment: Interpretive Data Percent cell count reference ranges are not reported, since discordance with absolute values may lead to misinterpretation of CBC data. Current Interpretive Data was last revised on 2017. Eosinophil pct 1.4 % [facility] Comment: Interpretive Data Percent cell count reference ranges are not reported, since discordance with absolute values may lead to misinterpretation of CBC data. Current Interpretive Data was last revised on 2017. Basophil pct 0.4 % [facility] Comment: Interpretive Data Percent cell count reference ranges are not reported, since discordance with absolute values may lead to misinterpretation of CBC data. Current Interpretive Data was last revised on 2017. Blood 03/16/2024 3:41 PM FINANCIAL SYSTEMS ANALYST 03/16/2024 4:17 PM FINANCIAL SYSTEMS ANALYST us Nikkie Marmolejo MD LAB BLOOD ORDERABLES Fin al Result [facility] [place] [address] * (ABNORMAL) CBC with auto differential (03/16/2024 3:41 PM FINANCIAL SYSTEMS ANALYST) WBC 8.4 3.8 - 9.9 K/cumm Hgb 14.3 13.0 - 17.5 g/dL [facility] Hct 43.6 38.9 - 50.3 % [facility] Plt 114(L) 150 - 400 K/cumm [facility] MPV 12.3 9.1 - 12.3 fL [facility] RBC 5.18 4.30 - 5.80 M/cumm [facility] MCV 84.2 81.3 - 96.4 fL [facility] MCH 27.6 27.1 - 33.3 pg [facility] MCHC 32.8 32.3 - 35.7 g/dL [facility] RDW CV 12.6 11.1 - 14.9 % [facility] RDW SD 38.5 35.7 - 48.1 fL [facility] NRBC abs 0.00 0.00 - 0.01 K/cumm [facility] Blood Venous blood specimen / Unknown 03/16/2024 3:41 PM FINANCIAL SYSTEMS ANALYST 03/16/2024 4:17 PM FINANCIAL SYSTEMS ANALYST Nikkie Marmolejo MD LAB BLOOD ORDERABLES Fin al Result Performing Organization Address [facility] Co de Phone Number [facility] [place] [address] * Lipase (03/16/2024 3:41 PM FINANCIAL SYSTEMS ANALYST) [facility] Lipase 12 10 - 99 Units/L Blood Venous blood specimen / Unknown 03/16/2024 3:41 PM FINANCIAL SYSTEMS ANALYST 03/16/2024 4:17 PM FINANCIAL SYSTEMS ANALYST Nikkie Marmolejo MD LAB BLOOD ORDERABLES Fin al Result Performing Organization Address [facility] de Phone Number [facility] [place] [address] * Comprehensive metabolic panel (03/16/2024 3:41 PM FINANCIAL SYSTEMS ANALYST) [facility] Sodium 140 135 - 145 mmol/L Potassium, pl 4.0 3.3 - 4.9 mmol/L [facility] Chloride 104 97 - 110 mmol/L [facility] CO2 28 22 - 32 mmol/L [facility] Anion gap 8 2 - 15 mmol/L [facility] BUN 7 6 - 25 mg/dL [facility] Creatinine 1.08 0.80 - 1.30 mg/dL [facility] Glucose 100 70 - 199 mg/dL [facility] Comment: Interpretive Data Fasting glucose >/= 126 [...] 2022. Calcium 9.1 8.5 - 10.3 mg/dL [facility] Bilirubin, total 0.5 0.1 - 1.2 mg/dL [facility] Protein, pl 7.8 6.5 - 8.5 g/dL [facility] Albumin 4.3 3.5 - 5.0 g/dL [facility] Alk phos 62 40 - 130 Units/L [facility] ALT 30 7 - 55 Units/L [facility] AST 37 10 - 50 Units/L [facility] Blood 03/16/2024 3:41 PM FINANCIAL SYSTEMS ANALYST 03/16/2024 4:17 PM FINANCIAL SYSTEMS ANALYST us Nikkie Marmolejo MD LAB BLOOD ORDERABLES Fin al Result [facility] [place] [address] * (ABNORMAL) Hepatitis C antibody (09/14/2022 8:25 [...] - GENERAL ORDER THOMAS Final Result [facility] [address] [facility] Department [place] [address] from Last 3 Months or Most Recently Relevant to Health Maintenance Insurance [employer] Care Teams 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
--- OUTSIDE RECORDS SUMMARY | 2024-06-13 10:24 | XMS_ITS | Encounter Summary ---
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
--- OUTSIDE RECORDS SUMMARY | 2024-06-13 10:24 | XMS_ITS | Encounter Summary ---
Author Organization [facility] Address [address] [place] [address] Care Team Providers Care Inspector Rag Sorting Name Role Phone Janet Desai MD Primary Care Provider [phone] Encounter Details Date Type Department Care Team (Late Contact Info) Description 03/16/2024 Lab Requisition [facility] Laboratory Services [facility] [address] [place] [address] Vanda Perdue, ANP [address] [facility] [facility] [address] [place] [address] Social History Tobacco Use Types Packs/Day Years Used Date Smoking Tobacco: Never Smokeless Tobacco: Never Alcohol Use Standard Drinks/Week Comments Yes 0 (1 standard drink = 0.6 oz pur e alcohol) Sex and Gender Information Value Date Recorded Sex Assigned at Not on file Legal Sex Male 9:32 AM FINISHED YARN EXAMINER Gender Identity Not on file Sexual Orientation Not on file documented as of this encounter Plan of Treatment Upcoming Encounters Date Type Department Care Team (Late Contact Info) Description 09/25/2024 3:30 PM CDT Office Visit [facility] Oncology and Hematology - Neri [address] [place] [address] True Wilson MD [address] [facility] [address] [place] [address] documented as of this encounter Procedures Procedure Name Priority Date/Time Associated Diagnosis Comments D-DIMER Stat 03/16/2024 7:19 AM FINISHED YARN EXAMINER documented in this encounter Results * (ABNORMAL) D-DIMER (03/16/2024 7:19 AM FINISHED YARN EXAMINER) D-DIMER QUANT 0.95(H) <0.50 ug/mL FEU 03/16/2024 12:07 PM FINISHED YARN EXAMINER [facility] Blood Collection / Unknown 03/16/2024 7:19 AM FINISHED YARN EXAMINER 03/16/2024 11:28 AM FINISHED YARN EXAMINER Narrative [facility] - 03/16/2024 12:07 PM FINISHED YARN EXAMINER D-Dimer assay cutoff value for exclusion of DVT and/or PE is <0.50 ug/mL FEU. us Vanda Perdue ANP HEMATOLOGY ORDERABLES Final Result [facility]# [id number] [address] [place] [address] documented in this encounter Visit Diagnoses Not on filedocumented in this encounter Care Teams Inspector Rag Sorting Relationship Specialty Start Date End Date Janet Desai MD [address] [place], [place] [address] [place] [address] PCP - General Internal Medicine 03/08/24 documented as of this encounter
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
[2024-06-16 16:18] VITALS: BMI 35.2
== END 2024-06-14 11:07 | disposition home or self-care (01) ==
LOC: ANHCSM 09:28
PROVIDERS: PCP Nurse Practitioner; Visit Provider Internal Medicine Cardiovascular Disease
DX: G47.10 Hypersomnia, unspecified (principal); G47.33 Obstructive sleep apnea (adult) (pediatric)
CPT/HCPCS: 95800

== ENCOUNTER 2024-06-20 08:42 | Outpatient (CLI) | payer OTHER, SELFPAY ==
--- NOTE | 2024-06-20 08:53 | ECHO_ITS ---
Patient Info Name: Brian Akhtar Age: 38 years : 1985 Gender: Male Ht: 72 in Wt: 260 lbs BSA: 2.49 m2 HR: 62 bpm BP: 149 / 84 mmHg Technical Quality: Good Exam Date: 06/20/2024 9:04 AM Exam Location: Echo Lab Patient Status: Outpatient Admit Date: 06/20/2024 Staff Ordering Physician: Jose Mayen DO Professor Of Business: Jackelyn Rea RDCS Attending Provider: Jose Mayen DO Referring Physician: Faheem AMATO; Exam Type: CA echo doppler color flow Study Info Indications R06.00 - Dyspnea, unspecified Complete two-dimensional, color flow and Doppler transthoracic echocardiogram is performed. Summary 1. Complete two-dimensional, color flow and Doppler transthoracic echocardiogram is performed. 2. Left ventricular chamber dimension is normal. 3. Left ventricular systolic function is normal, estimated at 60-65%. 4. The left ventricular diastolic function is normal. 5. E/e' 6 is not elevated. 6. Left atrial chamber dimension is mildly enlarged. 7. There is mild mitral valve regurgitation. 8. There is trace tricuspid valve regurgitation. 9. No pulmonary hypertension, estimated pulmonary arterial systolic pressure is 32 mmHg. Left Ventricle E/e' 6 is not elevated. Left ventricular chamber dimension is normal. Left ventricular systolic function is normal, estimated at 60-65%. The left ventricular diastolic function is normal. Right Ventricle Right ventricular systolic function is normal and with normal TAPSE 2.0 cm. Right ventricular chamber dimension is normal. Left Atria Left atrial chamber dimension is mildly enlarged. Right Atria Right atrial chamber dimension is normal. Aortic Valve The aortic valve is trileaflet. There is no aortic valve stenosis. There is no aortic valve regurgitation. Pulmonic Valve There is no pulmonic regurgitation. Mitral Valve There is no mitral valve stenosis. There is mild mitral valve regurgitation. Tricuspid Valve There is trace tricuspid valve regurgitation. No pulmonary hypertension, estimated pulmonary arterial systolic pressure is 32 mmHg. Pericardium/Pleural There is no pericardial effusion. Inferior Vena Cava Normal inferior vena cava with >50% collapse upon inspiration consistent with normal right atrial pressure, 5 mmHg. Aorta The aortic root size at the sinus of Valsalva is normal. Left Ventricular Outflow Tract Name Value Normal LVOT 2D LVOT Diameter 2.4 cm LVOT Doppler LVOT Peak Gradient 5 mmHg LVOT Mean Gradient 3 mmHg LVOT VTI 24 cm LVOT VTI/AV VTI Ratio 0.8 LVOT Stroke Volume 105 ml LVOT CO 20.0 l/min LVOT CI 8.0 l/min/m2 Pulmonic Valve Name Value Normal PV Doppler PV Peak Gradient 5 mmHg Mitral Valve Name Value Normal MV Doppler MV Decel [place] 320 cm/s2 MV PHT 79 ms MV Area (PHT) 2.8 cm2 4.0-5.0 MV Diastolic Function MV E Peak Velocity 87 cm/s MV A Peak Velocity 53 cm/s MV E/A 1.7 MV Decel Time 271 ms MV Annular TDI MV E/e' (Septal) 9.2 <=8.0 MV E/e' (Lateral) 5.3 <=8.0 MV E/e' (Average) 7.3 Tricuspid Valve Name Value Normal TV Regurgitation Doppler TR Peak Velocity 262 cm/s TR Peak Gradient 27 mmHg Estimated PAP/RSVP RA Pressure 5 mmHg <=5 PA Systolic Pressure 32 mmHg <36 RV Systolic Pressure 32 mmHg <36 Aorta Name Value Normal Ascending Aorta Ao Root Diameter (MM) 3.2 cm Ao Root Diam Index (MM) 1.3 cm/m2 Aortic Valve Name Value Normal AV Doppler AV Peak Velocity 139 cm/s AV Peak Gradient 8 mmHg AV Mean Gradient 5 mmHg AV VTI 32 cm AV Area (Cont Eq VTI) 3.3 cm2 >=3.0 AV Area (Cont Eq Shoaib) 3.5 cm2 AV Regurgitation 2D LVOT Area 4.4 cm2 Ventricles Name Value Normal LV Dimensions 2D/MM IVS Diastolic Thickness (2D) 1.1 cm 0.6-1.0 LVID Diastole (2D) 5.0 cm 4.2-5.8 LVIW Diastolic Thickness (2D) 1.0 cm 0.6-1.0 LVID Systole (2D) 3.3 cm 2.5-4.0 LVOT Diameter 2.4 cm LV Mass (2D Cubed) 196.16 g 88.00-224.00 LV Mass Index (2D Cubed) 79 g/m2 49-115 Relative Wall Thickness (2D) 0.39 LV Fractional Shortening/Ejection Fraction 2D/MM LV Fractional Shortening (2D) 34 % 25-43 LV EF (2D Teicholz) 63 % 52-72 LV Diastolic Volume (4C MOD) 146 ml LV EF (4C MOD) 59 % LV Diastolic Volume (2C MOD) 144 ml LV EF (2C MOD) 64 % LV Diastolic Volume (BP MOD) 149 ml 62-150 LV Diastolic Volume Index (BP MOD) 60 ml/m2 34-74 LV Systolic Volume (BP MOD) 57 ml 21-61 LV Systolic Volume Index (BP MOD) 23 ml/m2 11-31 LV EF (BP MOD) 62 % 52-72 LV Diastolic Length (4C) 9.2 cm LV Systolic Length (4C) 7.7 cm LV Stroke Volume (4C MOD) 87 ml RV Dimensions 2D/MM RVID Diastole (2D) 4.4 cm 2.5-3.5 Atria Name Value Normal LA Dimensions LA Dimension (MM) 4.1 cm 3.0-4.1 LA Volume (4C A-L) 71 ml LA Volume (BP A-L) 67 ml RA Dimensions RA Area (4C) 14.0 cm2 <=18.0 Report Signatures
--- OUTSIDE RECORDS SUMMARY | 2024-06-20 08:59 | XMS_ITS | Encounter Summary ---
Author Organization [facility] Address [address] [place] [address] Care Team Providers Care Pickler Helper Name Role Phone Janet Desai MD Primary Care Provider [phone] Encounter Details Date Type Department Care Team (Late Contact Info) Description 03/16/2024 Lab Requisition [facility] Laboratory Services [address] [facility] [address] [place] [address] Vanda ePrdue, ANP [address] [facility] Poornima Werner [facility] [address] [place] [address] Social History Tobacco Use Types Packs/Day Years Used Date Smoking Tobacco: Never Smokeless Tobacco: Never Alcohol Use Standard Drinks/Week Comments Yes 0 (1 standard drink = 0.6 oz pur e alcohol) Sex and Gender Information Value Date Recorded Sex Assigned at Not on file 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 Gender Identity Not on file Sexual Orientation Not on file documented as of this encounter Plan of Treatment Upcoming Encounters Date Type Department Care Team (Late Contact Info) Description 09/25/2024 3:30 PM CDT Office Visit [facility] Oncology and Hematology - Neri [address] [place] [address] True Wilson MD [address] [facility] [address] [place] [address] documented as of this encounter Procedures Procedure Name Priority Date/Time Associated Diagnosis Comments D-DIMER Stat 03/16/2024 7:19 AM CASE OPERATOR documented in this encounter Results * (ABNORMAL) D-DIMER (03/16/2024 7:19 AM CASE OPERATOR) D-DIMER QUANT 0.95(H) <0.50 ug/mL FEU 03/16/2024 12:07 PM CASE OPERATOR [facility] Blood Collection / Unknown 03/16/2024 7:19 AM CASE OPERATOR 03/16/2024 11:28 AM CASE OPERATOR Narrative [facility] - 03/16/2024 12:07 PM CASE OPERATOR D-Dimer assay cutoff value for exclusion of DVT and/or PE is <0.50 ug/mL FEU. us aVnda Perdue ANP HEMATOLOGY ORDERABLES Final Result [facility]# [id number] [address] [place] [id number] documented in this encounter Visit Diagnoses Not on filedocumented in this encounter Care Teams Pickler Helper Relationship Specialty Start Date End Date Janet Desai MD [address] [place], [place] [address] [place] [address] PCP - General Internal Medicine 03/08/24 documented as of this encounter
--- OUTSIDE RECORDS SUMMARY | 2024-06-20 08:59 | XMS_ITS | Clinical Summary ---
Author Organization [facility] Address [address] [place] [address] Care Team Providers Care Astrophysics Teacher Name Role Phone Unavailable Primary Care Provider Unavailabl e Source Comments [facility],non-owned Affiliates and Associated Physician Practices is amultiple site organization consisting of ambulatory clinics and hospital sitesin [place], [place], [place]. This disclosure is being madepursuant to the Care Everywhere program and may not contain all information available regarding this patient. 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
--- OUTSIDE RECORDS SUMMARY | 2024-06-20 08:59 | XMS_ITS | Encounter Summary ---
[facility] Organization [facility] Address [address] [place] [address] Care Team Providers Care Marketing Instructor Name Role Phone Janet Desai MD Primary Care Provider [phone] Encounter Details Date Type Department Care Team (Late st Contact Info) Description 05/29/2024 Results Follow-Up [facility] at [facility] [place] [address] [address] Vanda Perdue ANP [address] [facility] [address] [place] [address] CBC WITH DIFFERENTIAL, URINE CULTURE Social History Tobacco Use Types Packs/Day Years Used Date Smoking Tobacco: Never Smokeless Tobacco: Never Alcohol Use Standard Drinks/Week Comments Yes 0 (1 standard drink = 0.6 oz pur e alcohol) Sex and Gender Information Value Date Recorded Sex Assigned at Not on file 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 Gender Identity Not on file Sexual Orientation [...] 09/25/2024 3:30 PM CDT Office Visit [facility] Oncology and Hematology - [place] [address] [facility] [address] [place] [address] True Wilson MD [address] [facility] [address] [address] [place] [address] documented as of this encounter Visit Diagnoses Not on filedocumented in this encounter Care Teams Marketing Instructor Relationship Specialty Start Date End Date Janet Desai MD [address] [place] [phone] PCP - General Internal Medicine 03/08/24 documented as of this encounter
--- OUTSIDE RECORDS SUMMARY | 2024-06-20 08:59 | XMS_ITS | Clinical Summary ---
Author Organization [facility] [employer] [place] Address [address] [place] [phone] Care Team Providers Care Parking Worker Name Role Phone Janet Desai MD Primary Care Provider [phone] Allergies Active Allergy Reactions Criticality Noted Date [...] (03/08/2024): In remission since 2020. Seen at [facility] for addition and psych needs. History of ETOH abuse 10/22/2022 Overview (03/08/2024): In remission since 2020. Seen at [facility] for addition and psych needs. Vitamin D insufficiency 10/22/2022 Attention deficit disorder (ADD) in adult 2022 Hepatitis C 10/21/2022 Overview (03/08/2024): Current treatment per [facility]. Completed 01/2024. Panic attacks 02/26/2020 Resolved Problems Problem Noted Date Diagnosed Date Resolved Date Hepatitis C antibody test positive 10/21/2022 10/21/2022 Anxiety state 02/26/2020 10/22/2022 Precordial pain 02/26/2020 10/21/2022 Closed nondisp fracture of r ight medial malleolus with routine healing 10/21/2014 Encounters Date Type Department Care Team Description 05/29/2024 Results Follow-Up [facility]3] at [place] [address] [place] [address] Vanda Perdue, RICHARD CBC WITH DIFFERENTIAL, URINE CULTURE 05/28/2024 1:30 PM CDT Office Visit [place] [address] [place] [phone] Vanda Perdue, RICHARD Leukocytosis, unspecified type (Primary Dx); Mixed anxiety and depressive disorder; History of palpitations; Chest pain, unspecified type 05/11/2024 Telephone [facility]3] at [place] [address] [place] [id number] Janet Desai MD Follow up 04/17/2024 External Device Data STL ABSTRACTION Provider, Abstract 04/12/2024 4:30 PM 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 Telephone Check Up [facility]3] Oncology [facility] Hematology [facility] [address] [place] [phone] True Wilson MD Other fatigue (Primary Dx); Chronic anemia 03/27/2024 2:45 PM 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 Office Visit [facility]3] Oncology [facility] [address] [place] [phone] True Wilson MD Other fatigue (Primary Dx); Other secondary thrombocytopenia from Last 3 Months Immunizations Immunization Administration [...] on file Legal Sex Male 9:32 AM 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 Gender Identity Not on file Sexual Orientation [...] Description 09/25/2024 3:30 PM CDT Office Visit [facility]3] Oncology and Hematology - [place] [address] [place] [address] True Wilson MD [address] [facility] [address] [place] [address] Health Maintenance Due Date Last [...] 05/28/2024 2:02 PM CDT Leukocytosis, unspecified type HEMOGLOBIN A1C Routine 03/09/2024 11:14 AM 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 Polydipsia from Last 3 Months or Most Recently Relevant to Health Maintenance Results * CBC WITH DIFFERENTIAL (05/28/2024 2:02 PM CDT) WBC 7.7 3.8 - 10.8 Thousand/u L [...] LYMPHOCYTE ABSOLUTE 2,541 850 - 3,900 cells/uL Kizzy Newell MONOCYTE ABSOLUTE 408 200 - 950 cells/uL Kizzy Newell EOSINOPHIL ABSOLUTE 69 15 - 500 cells/uL Kizzy Newell BASOPHILS ABSOLUTE 31 0 - 200 cells/uL Kizzy Goldberg-Anthony Newell NEUTROPHIL 60.4 % Kizzy Newell LYMPHOCYTES 33.0 % Kizzy Newell MONOCYTE 5.3 % Kizzy Goldberg-Anthony Newell EOSINOPHILS 0.9 % Kizzy Goldberg-Anthony Newell BASOPHILS 0.4 % Kizzy Goldberg-Anthony Newell Comment: Test Performed at: [place] [address] [address] [phone] [facility] Blood 05/28/2024 2:02 PM CDT 05/28/2024 11:21 PM CDT Vanda Perdue ANP HEMATOLOGY ORDERABLES Final Result Performing Organization Address City/[facility]/ZIP Code Phone Number [facility] [phone] [place] [address] [address] [phone] * URINE CULTURE (05/28/2024 2:02 PM CDT) URINE CULTURE SEE NOTE [facility] darius Newell Comment: CULTURE, URINE, ROUTINE Micro Number: [id number] Test Status: Final Specimen Source: Urine, clean catch Specimen Quality: Adequate Result: No Growth Test Performed at: [place] [address] [address] [place] [phone] [facility] Urine URINE SPECIMEN OBTAINED BY CLEAN CATCH PROCEDURE / Unknown 05/28/2024 2:02 PM CDT 05/29/2024 3:18 AM CDT us Vanda Perdue ANP MICROBIOLOGY - GENERAL ORDER THOMAS Final Result Performing Organization Address City/[facility]/ZIP Code Phone Number [facility] [phone] [place] [address] [address] [phone] * (ABNORMAL) HEMOGLOBIN A1C (03/09/2024 11:14 AM 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) HEMOGLOBIN A1C 5.8(H) <5.7 % of total Hgb [facility] Comment: For someone without known diabetes, [...] children. ESTIMATED AVERAGE GLUCOSE (MG/DL) 120 mg/dL [facility] ESTIMATED AVERAGE GLUCOSE (MMOL/L) 6.6 mmol/L [facility] Comment: Test Performed at: [facility] [place] [address] [address] [phone] [facility] Blood 03/09/2024 11:1 4 AM 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 03/10/2024 12:44 AM 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 Vanda Perdue [facility] CHEMISTRY ORDERABLES Final R esult [facility] [phone] [facility] [place] [address] [address] [phone] from Last 3 Months or Most Recently Relevant to Health Maintenance Insurance PENDING SALE TO [facility] OPEN ACCESS ALLEGIANCE OPEN ACCESS PENDING SALE TO [facility] [employer] ACC[employer] Care Teams Parking Worker Relationship Specialty Start Date End Date Janet Desai MD [address] [place] [phone] PCP - General Internal Medicine 03/08/24
--- OUTSIDE RECORDS SUMMARY | 2024-06-20 08:59 | XMS_ITS | Referral Summary ---
Author Organization [facility] Address [address] [place] [address] Care Team Providers Care Technical Communication Teacher Name Role Phone Roland Knight NP Primary Care Provider [phone] Encounters Date Type Department Care Team Description 05/27/2024 Results Follow-Up [facility] [place] [address] Keila Cornejo NP 05/26/2024 6:58 PM CDT - 05/26/2024 8:30 PM CDT Emergency [facility] Emergency Department [address] [place] [id number] Asha Nicholas MD Chest pain, unspecified type (Primary Dx) Discharge Disposition: Discharge to home or self care 05/26/2024 6:02 PM CDT - 05/26/2024 6:39 PM CDT Emergency [facility] [place] [address] Rebekah Ayala MD Chest pain, unspecified type (Primary Dx); Diaphoresis; Sinus tachycardia Discharge Disposition: Discharge to a critical access hospital 05/10/2024 5:03 PM CDT - 05/10/2024 9:18 PM CDT Emergency [facility] Emergency Department [address] [place] [address] Chest pain, unspecified type (Primary Dx) Discharge [...] 3 tablets (54 mg total) by mouth noc engineer before breakfast Active metoprolol XL (TOPROL-XL) 50 [...] on file Legal Sex Male 4:57 AM PRACTICE BUSINESS ASST Gender Identity Not on file Sexual Orientation [...] ECG 12-LEAD STAT 05/10/2024 4:44 PM CDT HEPATITIS C ANTIBODY Routine 09/14/2022 8:25 AM CDT from Last 3 Months or Most Recently Relevant to Health Maintenance Results * ECG 12-LEAD (05/26/2024 8:30 PM CDT) Narrative [facility] - 05/26/2024 8:30 PM CDT Asha Nicholas MD 05/26/2024 8:46 PM ECG 12 lead Date/Time: 05/26/2024 8:30 PM Performed by: Keon Cavazos MD Authorized by: Koen Cavazos MD Rate: ECG rate: 90 ECG [...] Keon Cavazos MD ECG ORDERABLES Final Result [facility] * XR Chest Pa Lateral 2 Views [...] <=35 ng/L Comment: Interpretive Data For further [facility] resources including the diagnostic algorithm and an aid in interpretation, copy and paste this link: [email or web address]/[email or web address] Current Interpretive Data last revised 2019. Blood 05/26/2024 7:35 PM CDT 05/26/2024 7:55 PM CDT Asha Nicholas MD LAB BLOOD ORDERABLES Final Result [facility] Department [place] [address] * Respiratory pathogen panel Nasopharyngeal (05/26/2024 7:35 PM CDT) [facility] Influenza A RNA Not Detected Not Detected Influenza B RNA Not Detected Not Detected [facility] RSV RNA Not Detected Not Detected [facility] COVID-19 RNA Not Detected Not Detected [facility] Coronavirus 229E RNA Not Detected Not Detected [facility] Coronavirus HKU1 RNA Not Detected Not Detected [facility] Coronavirus NL63 RNA Not Detected Not Detected [facility] Coronavirus OC43 RNA Not Detected Not Detected [facility] Adenovirus DNA Not Detected Not Detected [facility] Metapneumovirus RNA Not Detected Not Detected [facility] Rhinovirus/Enterov irus RNA Not Detected Not Detected [facility] Parainfluenza 1 RNA Not Detected Not Detected [facility] Parainfluenza 2 RNA Not Detected Not Detected [facility] Parainfluenza 3 RNA Not Detected Not Detected [facility] Parainfluenza 4 RNA Not Detected Not Detected [facility] B. pertussis DNA Not Detected Not Detected [facility] B. parapertussis DNA Not Detected Not Detected [facility] C. pneumoniae DNA Not Detected Not Detected [facility] M. pneumoniae DNA Not Detected Not Detected [facility] Nasopharyngeal 05/26/2024 7: 35 PM CDT 05/26/2024 7:47 PM CDT Narrative [facility] - 05/26/2024 8:55 PM CDT Is the Patient experiencing symptoms consistent with COVID?->Unknown Surveillance testing for transplant patient?->No Interpretive Data The [employer] Film[employer] Respiratory Panel (RP2.1) assay is a [...] assay has FDA clearance for testing of AEROLOGIST swabs. The performance of additional specimen types has been assessed by the performing laboratory. The performance characteristics of this assay have been determined by [facility] Molecular Infectious Disease Laboratory. Current interpretive data was last revised on 21. Keon Cavazos MD LAB MICROBIOLOGY - GEN ERAL ORDERABLES Final Result [facility] Department [place] [address] * ECG 12-LEAD (05/26/2024 6:54 PM CDT) [...] in the ED Asha Nicholas MD 05/26/24 [id number] us Rebekah Ayala MD ECG ORDERABLES Final Resu lt [facility] * Troponin T high-sensitivity (05/26/2024 6:08 PM CDT) Trop T hs <6 <=22 ng/L Blood 05/26/2024 6:08 PM CDT 05/26/2024 6:10 PM CDT us Rebekah Ayala MD LAB BLOOD ORDERABLES Final Result [facility] Department [place] [address] * (ABNORMAL) eGFR (05/26/2024 6:08 PM CDT) [...] Ayala MD LAB BLOOD ORDERABLES Final Result [facility] [place] [address] * Pro B-type natriuretic peptide (05/26/2024 6:08 PM CDT) NT-proBNP <36 <=300 pg/mL Blood 05/26/2024 6:08 PM CDT 05/26/2024 6:10 PM CDT Narrative [facility] - 05/26/2024 6:52 PM CDT Interpretive Comments: [...] GOODRICH et.al. Eur Heart J. 2006:27:330-337. Messi SCHAFER, Samreen ACHARYA. J. AM Silvia Cardiol: Cardiovasc Imag. 2009;2: 216-225. Rebekah Ayala MD LAB BLOOD ORDERABLES Final Result Performing Organization Address [facility] de Phone Number [facility] [place] [address] * Beta-hydroxybutyrate (05/26/2024 6:08 PM CDT) Pathologist [facility] Beta-Hydroxybutyrate 0.3 <=0.5 mmol/L Comment: Interpretive data This test was developed and its performance characteristics determined by [facility]. It has not been cleared or approved by the U.S. Food and Drug Administration. Current interpretive data was last revised on 2017 Blood 05/26/2024 6:08 PM CDT 05/26/2024 6:10 PM CDT Rebekah Ayala MD LAB BLOOD ORDERABLES Final Result Performing Organization Address [facility] Co de Phone Number [facility] [place] [address] * (ABNORMAL) CBC with auto differential (05/26/2024 6:08 PM CDT) WBC 14.46(H) 3.80 - 9.90 K/cumm Hgb 15.0 13.0 - 17.5 g/dL [facility] Hct 43.8 38.9 - 50.3 % [facility] Plt 173 150 - 400 K/cumm [facility] MPV 11.4 9.1 - 12.3 fL [facility] RBC 5.32 4.30 - 5.80 M/cumm [facility] MCV 82.3 81.3 - 96.4 fL [facility] MCH 28.2 27.1 - 33.3 pg [facility] MCHC 34.2 32.3 - 35.7 g/dL [facility] RDW CV 12.3 11.1 - 14.9 % [facility] RDW SD 37.3 35.7 - 48.1 fL [facility] NRBC abs 0.00 0.00 - 0.01 K/cumm [facility] Morphologic Screen Results confirmed by manual morphology review. [facility] Blood Venous blood specimen / Unknown 05/26/2024 6:08 PM CDT 05/26/2024 6:10 PM CDT us Rebekah Ayala MD LAB BLOOD ORDERABLES Edite d Result - Final [facility] Department [place] [address] * (ABNORMAL) Manual Differential (05/26/2024 6:08 PM CDT) Differential Manual Neutrophil abs 8.18(H) 1.50 - 6.50 K/cumm [facility] Lymphocyte abs 5.28(H) 0.80 - 3.30 K/cumm [facility] Monocyte abs 0.75 0.20 - 0.80 K/cumm [facility] Eosinophil abs 0.25 0.00 - 0.50 K/cumm [facility] Neutrophil pct 56.6 % [facility] Comment: Interpretive Data Percent cell count reference ranges are not reported, since discordance with absolute values may lead to misinterpretation of CBC data. Current Interpretive Data was last revised on 2017. Lymphocyte pct 33.9 % [facility] Comment: Interpretive Data Percent cell count reference ranges are not reported, since discordance with absolute values may lead to misinterpretation of CBC data. Current Interpretive Data was last revised on 2017. Monocyte pct 5.2 % [facility] Comment: Interpretive Data Percent cell count reference ranges are not reported, since discordance with absolute values may lead to misinterpretation of CBC data. Current Interpretive Data was last revised on 2017. Eosinophil pct 1.7 % [facility] Comment: Interpretive Data Percent cell count reference ranges are not reported, since discordance with absolute values may lead to misinterpretation of CBC data. Current Interpretive Data was last revised on 2017. Variant lymph pct 2.6(H) 0.0 - 0.0 % [facility] RBC morphology Normal [facility] Platelet estimate Adequate [facility] Blood 05/26/2024 6:08 PM CDT 05/26/2024 6:10 PM CDT us Rebekah Ayala MD LAB BLOOD ORDERABLES Final Result [facility] Department [place] [address] * D-dimer, quantitative (05/26/2024 6:08 PM CDT) D-Dimer <215 <=499 ng/mL FEU Comment: No clot detected in sample - [id number] - 05/26/24, 6:37 PM Interpretive data FDA [...] last revised on 2019. Testing performed by: [facility], [address] [facility], [place]., [address] Blood 05/26/2024 6:08 PM CDT 05/26/2024 6:10 PM CDT Rebekah Ayala MD LAB BLOOD ORDERABLES Final Result Performing Organization Address [facility] Co de Phone Number [facility] [place] [address] * Lipase (05/26/2024 6:08 PM CDT) Lipase 15 10 - 99 Units/L Blood 05/26/2024 6:08 PM CDT 05/26/2024 6:10 PM CDT Rebekah Ayala MD LAB BLOOD ORDERABLES Final Result Performing Organization Address [facility] [place] [address] * Comprehensive metabolic panel (05/26/2024 6:08 PM CDT) Sodium 139 135 - 145 mmol/L Potassium, pl 3.4 3.3 - 4.9 mmol/L [facility] Chloride 104 97 - 110 mmol/L [facility] CO2 24 22 - 32 mmol/L [facility] Anion gap 11 2 - 15 mmol/L [facility] BUN 8 6 - 25 mg/dL [facility] Creatinine 1.11 0.80 - 1.30 mg/dL [facility] Glucose 109 70 - 199 mg/dL [facility] Comment: Interpretive Data Fasting glucose >/= [...] 2022. Calcium 9.2 8.5 - 10.3 mg/dL [facility] Bilirubin, total 0.4 0.1 - 1.2 mg/dL [facility] Protein, pl 8.5 6.5 - 8.5 g/dL [facility] Albumin 4.7 3.5 - 5.0 g/dL [facility] Alk phos 54 40 - 130 Units/L [facility] ALT 20 7 - 55 Units/L [facility] AST 32 10 - 50 Units/L [facility] Blood 05/26/2024 6:08 PM CDT 05/26/2024 6:10 PM CDT Rebekah Ayala MD LAB BLOOD ORDERABLES Final Result Performing Organization Address [facility]/ZIP Co de Phone Number [facility] [place] [address] * POCT glucose (05/26/2024 6:03 PM CDT) Glucose, POC 105 70 - 199 mg/dL Blood 05/26/2024 6:03 PM CDT 05/26/2024 6:03 PM CDT Notinfile Unknown LAB POCT ORDERABLES - DEVICE F inal Result Performing Organization Address [facility] [place] [address] * Hemoglobin A1c (05/26/2024 6:00 PM CDT) Hgb A1C 5.4 4.0 - 5.6 % Estimated Average Glucose 108 mg/dL [facility] Comment: The ADA recommends reporting an estimated Average Glucose (eAG) with all Hemoglobin A1c results using the equation derived from a study of 507 normal and diabetic adults. Minority populations were underrepresented and children were not included. (Diabetes Care 31:6699-6028, 2008). The eAG is not equivalent to a fasting glucose. Blood 05/26/2024 6:00 PM CDT 05/26/2024 6:54 PM CDT us Rebekah Ayala MD LAB BLOOD ORDERABLES Final Result Performing Organization Address [facility]/ZIP Co de Phone Number [facility] [place] [address] * Troponin T high-sensitivity 2-hour (05/10/2024 7:01 [...] ORDERABLES Final Res ult Performing Organization Address [facility]/ZIP Co de Phone Number [facility] [address] [place] [address] [place] [address] * XR Chest 1 Vw Portable (if [...] James Lewis M.D. AG: MARK Report ID: [id number] Reading Location: [id number] Procedure Note James Lewis MD - 05/10/2024 [...] James Lewis M.D. AG: MARK Report ID: [id number] Reading Location: [id number] Artem Soriano MD IMG XR PROCEDURES Final [...] ORDERABLES Final Res ult Performing Organization Address [facility]/ZIP Co de Phone Number [facility] [address] [facility] [place] [address] * eGFR (05/10/2024 4:51 PM CDT) eGFR [...] of Race in Diagnosing Kidney Disease, JASN 2021). The CKD-EPI equation should not be used for patients with unstable renal function and has not been validated in children and those over 70. Current interpretive data was last reviewed 2020. Blood 05/10/2024 4:51 PM CDT 05/10/2024 5:00 PM CDT Artem Soriano MD LAB BLOOD ORDERABLES Final Res ult Performing Organization Address [facility]/ZIP Co de Phone Number [facility] [address] [facility] [place] [address] * (ABNORMAL) Differential, auto (05/10/2024 4:51 PM [...] Final Res ult [facility] [address] [facility] [place] [address] * (ABNORMAL) CBC with auto differential (05/10/2024 [...] Final Res ult [facility] [address] [facility] [place] [address] * Comprehensive metabolic panel (05/10/2024 4:51 PM [...] Final Res ult [facility] [address] [facility] [place] [address] * ECG 12 lead (05/10/2024 4:44 PM CDT) 05/10/2024 4:44 PM CDT Narrative [facility] - 05/11/2024 10:24 AM CDT Vent Rate: 72 bpm RR Interval: 831 msec OK Interval: 154 msec QRS Duration: 94 msec QT Interval: 352 msec QTC Interval: 376 msec P-R-T [place]: 58 - 97 - -24 degrees IMPRESSION: SINUS RHYTHM BORDERLINE RIGHT AXIS DEVIATION [QRS AXIS > 90] Inferior T-wave inversions, consider ischemia ABNORMAL ECG Electronically Signed By: Abraham Nogueira MD Artem Soriano MD ECG ORDERABLES Final Result Performing Organization Address [facility] de Phone Number [facility] * (ABNORMAL) Hepatitis C antibody (09/14/2022 8:25 [...] ORDER THOMAS Final Result Performing Organization Address [facility] Co de Phone Number [facility] [address] [facility] [place] [address] from Last 3 Months or Most Recently Relevant to Health Maintenance [facility] [employer]ANCE Care Teams Technical Communication Teacher Relationship Specialty Start Date End Date Roland Knight NP [address] [place] [address] [place] [address] PCP - General Pain Management 02/24/24
--- OUTSIDE RECORDS SUMMARY | 2024-06-20 08:59 | XMS_ITS | CONTINUITY OF CARE DOCUMENT ---
Author Name artemio ulloa Address Unknown Organization [facility] Address [address] [place] [address] [address] [place] [address] Phone [phone] Care Team Providers Care Library Sales Consultant Name Role Phone Jus Arango MD Unavailable TALYA PIMENTEL MD Unavailable TALYA PIMENTEL MD Unavailable INSURANCE PROVIDERS Payer name Policy type / Coverage type [employer] red libertarian ID [employer] insurance [employer] [id number]
--- OUTSIDE RECORDS SUMMARY | 2024-06-20 08:59 | XMS_ITS | Continuity of Care Document ---
Author Organization [facility] Address [address] [place] [address] [place] [address] Phone Care Team Providers Care Survey Questionnaire Designer Name Role Phone Cristobal Espinal MD Unavailable [...] Active Procedures Procedure Date OFFICE/OUTPATIENT VISIT, [facility] Advance Directives Directive Yes / No Effective Date File Name No Information Encounters Encounter Description Practice Location Reason(s) For Visit Diagnoses Date Provider Providers Copied on Encounter OFFICE/OUTPA TIENT VISIT, [facility], [address], [place], [id number], tel:[phone] [facility] back pain (chief complaint) anxiety (chief complaint) Dietary surveillance and counselingLumbagoGe neralized anxiety disorder [address] [place], [id number] , [place]. tel:[phone] Family History Family Member Type Diagnosis Age At Onset No Information Payers Payer name Insurance type Covered republican ID Authoriza tion(s) No Information Social History [...] Mental Status Date Cognitive Assessment Orientation - Dora ed to time, place, person, situation.
--- OUTSIDE RECORDS SUMMARY | 2024-06-20 08:59 | XMS_ITS | Clinical Summary ---
Author Organization [facility] Address [address] [place] [address] Care Team Providers Care Corporate Director Of Pharmacy Name Role Phone Roland Knight NP Primary Care Provider [phone] Allergies Active Allergy Reactions Criticality Noted Date [...] 3 tablets (54 mg total) by mouth lumber sorter machine before breakfast Active metoprolol XL (TOPROL-XL) 50 [...] Department Care Team Description 05/27/2024 Results Follow-Up [facility] [place] [address] Keila Cornejo NP 05/26/2024 6:58 PM CDT - 05/26/2024 8:30 PM CDT Emergency [facility] Emergency Department [address] [place] [address] Asha Nicholas MD Chest pain, unspecified type (Primary Dx) Discharge Disposition: Discharge to home or self care 05/26/2024 6:02 PM CDT - 05/26/2024 6:39 PM CDT Emergency [facility] [place] [address] Rebekah Ayala MD Chest pain, unspecified type (Primary Dx); Diaphoresis; Sinus tachycardia Discharge Disposition: Discharge to a critical access hospital 05/10/2024 5:03 PM CDT - 05/10/2024 9:18 PM CDT Emergency [facility] Emergency Department [address] [place] [address] Chest pain, unspecified type (Primary Dx) Discharge [...] on file 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 Electronically signed by: Kenya Diaz M.D. us Asha Nicholas MD IMG XR PROCEDURES Final Res ult * Troponin I high-sensitivity series (baseline, 2hr, 4hr, 6hr) (05/26/2024 7:35 PM CDT) [facility] Trop I hs <4 <=35 ng/L Comment: Interpretive Data For further hscTnI resources including the diagnostic algorithm and an aid in interpretation, copy and paste this link: https://bjhlab.testcatalog.org/show/hsTrop-[email or web address] Current Interpretive Data last revised 2019. Blood 05/26/2024 7:35 PM CDT 05/26/2024 7:55 PM CDT us Asha Nicholas MD LAB BLOOD ORDERABLES Final Result [facility] [place] [address] * Respiratory pathogen panel Nasopharyngeal (05/26/2024 7:35 PM CDT) [facility] Influenza A RNA Not Detected Not Detected Influenza B RNA Not Detected Not Detected [facility] RSV RNA Not Detected Not Detected [facility] COVID-19 RNA Not Detected Not Detected [facility] Coronavirus 229E RNA Not Detected Not Detected [facility] Coronavirus HKU1 RNA Not Detected Not Detected [facility] Coronavirus NL63 RNA Not Detected Not Detected [facility] Coronavirus OC43 RNA Not Detected Not Detected [facility] Adenovirus DNA Not Detected Not Detected [facility] Metapneumovirus RNA Not Detected Not Detected [facility] Rhinovirus/Enterov irus RNA Not Detected Not Detected [facility] Parainfluenza 1 RNA Not Detected Not Detected [facility] Parainfluenza 2 RNA Not Detected Not Detected [facility] Parainfluenza 3 RNA Not Detected Not Detected [facility] Parainfluenza 4 RNA Not Detected Not Detected [facility] B. pertussis DNA Not Detected Not Detected [facility] B. parapertussis DNA Not Detected Not Detected [facility] C. pneumoniae DNA Not Detected Not Detected [facility] M. pneumoniae DNA Not Detected Not Detected [facility] Nasopharyngeal 05/26/2024 7: 35 PM CDT 05/26/2024 7:47 PM CDT Narrative [facility] - 05/26/2024 8:55 PM CDT Is the Patient experiencing symptoms consistent with COVID?->Unknown Surveillance testing for transplant patient?->No Interpretive Data The [employer] FilmArray Respiratory Panel (RP2.1) assay is [...] assay has FDA clearance for testing of BIRDCAGE ASSEMBLER swabs. The performance of additional specimen types has been assessed by the performing laboratory. The performance characteristics of this assay have been determined by [facility] Molecular Infectious Disease Laboratory. Current interpretive data was last revised on 21. us Keon Cavazos MD LAB MICROBIOLOGY - GEN ERAL ORDERABLES Final Result Performing Organization Address City/[facility]/ZIP Co de Phone Number CHARISSE [facility] Department [place] [address] * ECG 12-LEAD (05/26/2024 6:54 PM CDT) [...] in the ED Asha Nicholas MD 05/26/24 0996 us Rebekah Ayala MD ECG ORDERABLES Final Resu lt [facility] * Troponin T high-sensitivity (05/26/2024 6:08 PM CDT) Trop T hs <6 <=22 ng/L Blood 05/26/2024 6:08 PM CDT 05/26/2024 6:10 PM CDT Rebekah Ayala MD LAB BLOOD ORDERABLES Final Result Performing Organization Address [facility] Co de Phone Number [facility] [place] [place] [address] * (ABNORMAL) eGFR (05/26/2024 6:08 PM CDT) [...] BLOOD ORDERABLES Final Result Performing Organization Address [facility]/ZIP Co de Phone Number [facility] [place] [address] * Pro B-type natriuretic peptide (05/26/2024 6:08 PM CDT) NT-proBNP <36 <=300 pg/mL Blood 05/26/2024 6:08 PM CDT 05/26/2024 6:10 PM CDT Narrative [facility] - 05/26/2024 6:52 PM CDT Interpretive [...] Eur Heart J. 2006:27:330-337. Messi RW, Samreen ACHARYA. J. AM Silvia Cardiol: Cardiovasc Imag. 2009;2: 216-225. us Rebekah Ayala MD LAB BLOOD ORDERABLES Final Result [facility] Department [place] [address] * Beta-hydroxybutyrate (05/26/2024 6:08 PM CDT) Beta-Hydroxybutyrate 0.3 <=0.5 mmol/L Comment: Interpretive data This test was developed and its performance characteristics determined by [facility]. It has not been cleared or approved by the U.S. Food and Drug Administration. Current interpretive data was last revised on 2017 Blood 05/26/2024 6:08 PM CDT 05/26/2024 6:10 PM CDT Rebekah Ayala MD LAB BLOOD ORDERABLES Final Result Performing Organization Address [facility] [place] [address] * (ABNORMAL) CBC with auto differential (05/26/2024 6:08 PM CDT) WBC 14.46(H) 3.80 - 9.90 K/cumm Hgb 15.0 13.0 - 17.5 g/dL [facility] Hct 43.8 38.9 - 50.3 % [facility] Plt 173 150 - 400 K/cumm [facility] MPV 11.4 9.1 - 12.3 fL [facility] RBC 5.32 4.30 - 5.80 M/cumm [facility] MCV 82.3 81.3 - 96.4 fL [facility] MCH 28.2 27.1 - 33.3 pg [facility] MCHC 34.2 32.3 - 35.7 g/dL [facility] RDW CV 12.3 11.1 - 14.9 % [facility] RDW SD 37.3 35.7 - 48.1 fL [facility] NRBC abs 0.00 0.00 - 0.01 K/cumm [facility] Morphologic Screen Results confirmed by manual morphology review. [facility] Blood Venous blood specimen / Unknown 05/26/2024 6:08 PM CDT 05/26/2024 6:10 PM CDT Rebekah Ayala MD LAB BLOOD ORDERABLES Edite d Result - Final Performing Organization Address [facility] [place] [address] * (ABNORMAL) Manual Differential (05/26/2024 6:08 PM CDT) Differential Manual Neutrophil abs 8.18(H) 1.50 - 6.50 K/cumm [facility] Lymphocyte abs 5.28(H) 0.80 - 3.30 K/cumm [facility] Monocyte abs 0.75 0.20 - 0.80 K/cumm [facility] Eosinophil abs 0.25 0.00 - 0.50 K/cumm [facility] Neutrophil pct 56.6 % [facility] Comment: Interpretive Data Percent cell count reference ranges are not reported, since discordance with absolute values may lead to misinterpretation of CBC data. Current Interpretive Data was last revised on 2017. Lymphocyte pct 33.9 % [facility] Comment: Interpretive Data Percent cell count reference ranges are not reported, since discordance with absolute values may lead to misinterpretation of CBC data. Current Interpretive Data was last revised on 2017. Monocyte pct 5.2 % [facility] Comment: Interpretive Data Percent cell count reference ranges are not reported, since discordance with absolute values may lead to misinterpretation of CBC data. Current Interpretive Data was last revised on 2017. Eosinophil pct 1.7 % [facility] Comment: Interpretive Data Percent cell count reference ranges are not reported, since discordance with absolute values may lead to misinterpretation of CBC data. Current Interpretive Data was last revised on 2017. Variant lymph pct 2.6(H) 0.0 - 0.0 % [facility] RBC morphology Normal [facility] Platelet estimate Adequate [facility] Blood 05/26/2024 6:08 PM CDT 05/26/2024 6:10 PM CDT us Rebekah Ayala MD LAB BLOOD ORDERABLES Final Result [facility] Department [place] [address] * D-dimer, quantitative (05/26/2024 6:08 PM CDT) D-Dimer <215 <=499 ng/mL FEU Comment: No clot detected in sample - [id number] - 05/26/24, 6:37 PM Interpretive data FDA [...] HT et al. Brit Med J. 2013;346:f2492. Sheirce et al. Annals Int Med. 2015;163:701-11. Current interpretive data was last revised on 2019. Testing performed by: [facility], [address] [place] [address]., [id number] Blood 05/26/2024 6:08 PM CDT 05/26/2024 6:10 PM CDT Rebekah Ayala MD LAB BLOOD ORDERABLES Final Result Performing Organization Address [facility] Co de Phone Number [facility] Department [place] [address] * Lipase (05/26/2024 6:08 PM CDT) Pathologist [facility] Lipase 15 10 - 99 Units/L Blood 05/26/2024 6:08 PM CDT 05/26/2024 6:10 PM CDT Rebekah Ayala MD LAB BLOOD ORDERABLES Final Result Performing Organization Address [facility] Co de Phone Number [facility] Department [place] [address] * Comprehensive metabolic panel (05/26/2024 6:08 PM CDT) Pathologist [facility] Sodium 139 135 - 145 mmol/L Potassium, pl 3.4 3.3 - 4.9 mmol/L [facility] Chloride 104 97 - 110 mmol/L [facility] CO2 24 22 - 32 mmol/L [facility] Anion gap 11 2 - 15 mmol/L [facility] BUN 8 6 - 25 mg/dL [facility] Creatinine 1.11 0.80 - 1.30 mg/dL [facility] Glucose 109 70 - 199 mg/dL [facility] Comment: Interpretive Data Fasting glucose [...] 2022. Calcium 9.2 8.5 - 10.3 mg/dL [facility] Bilirubin, total 0.4 0.1 - 1.2 mg/dL [facility] Protein, pl 8.5 6.5 - 8.5 g/dL [facility] Albumin 4.7 3.5 - 5.0 g/dL [facility] Alk phos 54 40 - 130 Units/L [facility] ALT 20 7 - 55 Units/L [facility] AST 32 10 - 50 Units/L [facility] Blood 05/26/2024 6:08 PM CDT 05/26/2024 6:10 PM CDT us Rebekah Ayala MD LAB BLOOD ORDERABLES Final Result [facility] Department [place] [address] * POCT glucose (05/26/2024 6:03 PM CDT) Glucose, POC 105 70 - 199 mg/dL Blood 05/26/2024 6:03 PM CDT 05/26/2024 6:03 PM CDT Notinfile Unknown LAB POCT ORDERABLES - DEVICE F inal Result Performing Organization Address [facility] [place] [address] * Hemoglobin A1c (05/26/2024 6:00 PM CDT) Hgb A1C 5.4 4.0 - 5.6 % Estimated Average Glucose 108 mg/dL [facility] Comment: The ADA recommends reporting an estimated Average Glucose (eAG) with all Hemoglobin A1c results using the equation derived from a study of 507 normal and diabetic adults. Minority populations were underrepresented and children were not included. (Diabetes Care 31:7341-5734, 2008). The eAG is not equivalent to a fasting glucose. Blood 05/26/2024 6:00 PM CDT 05/26/2024 6:54 PM CDT Rebekah Ayala MD LAB BLOOD ORDERABLES Final Result Performing Organization Address [facility] [place] [address] * Troponin T high-sensitivity 2-hour (05/10/2024 7:01 PM CDT) Pathologist [facility] Trop T hs <6 <=22 ng/L Comment: [...] BLOOD ORDERABLES Final Res ult [facility] JOY) 1 [facility] Department [place] [address] * XR Chest 1 Vw Portable (if [...] James Lewis M.D. AG: MARK Report ID: [id number] Reading Location: [place] [address] Procedure Note James Lewis MD - 05/10/2024 [...] Electronically signed by James Lewis M.D. AG: AG Report ID: [id number] Reading Location: [id number] Artem Soriano MD IMG XR PROCEDURES Final [...] MD LAB BLOOD ORDERABLES Final Res ult LEIDYLJM VED (MOBILE 1 [facility] Department [place] [address] * eGFR (05/10/2024 4:51 PM [...] BLOOD ORDERABLES Final Res ult [facility] (MOBILE) 1 [facility] Department [place] [address] * (ABNORMAL) Differential, auto (05/10/2024 4:51 PM CDT) Neutrophil abs 6.4 1.5 - 6.5 K/cumm Imm gran abs 0.0 0.0 - 0.1 K/cumm [facility] (MOBILE) Lymphocyte abs 3.6(H) 0.8 - 3.3 K/cumm [facility] (MOBILE) Monocyte abs 0.6 0.2 - 0.8 K/cumm [facility] (JOY) Eosinophil abs 0.1 0.0 - 0.5 K/cumm [facility] (JOY) Basophil abs 0.0 0.0 - 0.1 K/cumm [facility] (JOY) Neutrophil pct 59.2 % [facility] (MOBILE) Comment: Interpretive Data Percent cell count reference [...] Final Res ult [facility] (JOY) 1 [facility] Department [place] [address] * (ABNORMAL) CBC with auto differential (05/10/2024 [...] NRBC abs 0.00 0.00 - 0.01 K/cumm [facility] (JOY) Blood Venous blood specimen / Unknown 05/10/2024 4:51 PM CDT 05/10/2024 5:00 PM CDT us Artem Soriano MD LAB BLOOD ORDERABLES Final Res ult [facility] (JOY) 1 [facility] Department [place] [address] * Comprehensive metabolic panel (05/10/2024 4:51 PM [...] ORDERABLES Final Res ult Performing Organization Address City/[facility] Co de Phone Number CHARISSE ROYAL (JOY) 1 [facility] [place] [address] * ECG 12 lead (05/10/2024 4:44 PM CDT) 05/10/2024 4:44 PM CDT Narrative [facility] - 05/11/2024 10:24 AM CDT Vent Rate: 72 bpm RR Interval: 831 msec WI Interval: 154 msec QRS Duration: 94 msec QT Interval: 352 msec QTC Interval: 376 msec P-R-T [place]: 58 - 97 - -24 degrees IMPRESSION: SINUS RHYTHM BORDERLINE RIGHT AXIS DEVIATION [QRS AXIS > 90] Inferior T-wave inversions, consider ischemia ABNORMAL ECG Electronically Signed By: Abraham Nogueira MD Artem Soriano MD ECG ORDERABLES Final Result Performing Organization Address [facility] de Phone Number [facility] [employer] [facility] * (ABNORMAL) Hepatitis C antibody (09/14/2022 8:25 AM CDT) Hep C Ab Reactive( A) Nonreactive [facility] Comment: Interpretive Data Nonreactive: Antibodies to HCV [...] - GENERAL ORDER THOMAS Final Result [facility] [address] [facility] Department [place] [address] from Last 3 Months or Most Recently Relevant to Health Maintenance Insurance [employer] Care Teams Corporate Director Of Pharmacy Relationship Specialty Start Date End Date Roland Knight NP [address] [place] [address] [place] [address] PCP - General Pain Management 02/24/24
--- OUTSIDE RECORDS SUMMARY | 2024-06-20 08:59 | XMS_ITS | Encounter Summary ---
Author Organization [facility] Address [address] [place] [address] Care Team Providers Care Vp Compliance Name Role Phone Janet Desai MD Primary Care Provider [phone] Encounter Details Date Type Department Care Team (Latest Contact Info) Description 03/16/2024 Results Follow-Up [facility] at Work [employer] [place] [address] [place] [address] Vanda Perdue, ANP [address] [facility] [address] Mar[facility]florencia [facility] [address] [place] [address] CBC WITH DIFFERENTIAL Social History Tobacco Use Types Packs/Day Years Used Date Smoking Tobacco: Never Smokeless Tobacco: Never Alcohol Use Standard Drinks/Week Comments Yes 0 (1 standard drink = 0.6 oz pur e alcohol) Sex and Gender Information Value Date Recorded Sex Assigned at Not on file 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 Gender Identity Not on file Sexual Orientation Not on file documented as of this encounter Plan of Treatment Upcoming Encounters Date Type Department Care Team (Late st Contact Info) Description 09/25/2024 3:30 PM CDT Office Visit [facility] Oncology and Hematology - [place] [address] [facility] [address] [place] [address] True Wilson MD [address] [facility] [address] [place] [address] documented as of this encounter Visit Diagnoses Not on filedocumented in this encounter Care Teams Vp Compliance Relationship Specialty Start Date End Date Janet Desai MD [address] [place] [address] PCP - General Internal Medicine 03/08/24 documented as of this encounter
--- OUTSIDE RECORDS SUMMARY | 2024-06-20 08:59 | XMS_ITS | Encounter Summary ---
Author Organization [facility] Healthcare Address [address] [place] [address] Care Team Providers Care Parts Designer Name Role Phone Roland Knight NP Primary Care Provider [phone] Encounter Details Date Type Department Care Team (Late st Contact Info) Description 05/27/2024 Results Follow-Up [facility] [place] [address] Keila Cornejo NP [address] 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
--- OUTSIDE RECORDS SUMMARY | 2024-06-20 08:59 | XMS_ITS | Clinical Summary ---
Author Organization [facility] Address [address] [address] Phone Care Team Providers Care Director [place] Sales Name Role Phone Roland Knight APRN, CNP [...] complete this topic Insurance Care Teams Director [place] Sales Relationship Specialty Start Date End Date Roland Knight, EGG PROCESSOR, TESTER ARMATURE [employer] [address] [place] [address] [place] [address] PCP - General Advanced Practice Nurse 06/14/23
--- OUTSIDE RECORDS SUMMARY | 2024-06-20 08:59 | XMS_ITS | Encounter Summary ---
Author Organization [facility] Address [address] [place] [address] Care Team Providers Care Community Music Therapist Name Role Phone Janet Desai MD Primary Care Provider [phone] Encounter Details Date Type Department Care Team (Latest Contact Info) Description 03/13/2024 Results Follow-Up [facility] [employer] [place] [address] [address] Vanda Perdue ANP [address] [facility] [address] [place] [address] HEMOGLOBIN A1C, COMPREHENSIVE METABOLIC PANEL, CBC WITH DIFFERENTIAL, Additional followed-up results: 2 Social History Tobacco Use Types Packs/Day Years Used Date Smoking Tobacco: Never Smokeless Tobacco: Never Alcohol Use Standard Drinks/Week Comments Yes 0 (1 standard drink = 0.6 oz pur e alcohol) Sex and Gender Information Value Date Recorded Sex Assigned at Not on file 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 Urine did not show any infection. Digestive enzymes are normal, including liver and pancreas. Blood sugar in prediabetic range. Not cause of his illness. Will need to discuss in future. Infection levels are normal but platelet count is low. This is new finding. Recommend repeat CBC today or tomorrow See telephone encounter. ROBE ASSISTANT documented in this encounter Plan of Treatment Upcoming Encounters Date Type Department Care Team (Late st Contact Info) Description 09/25/2024 3:30 PM CDT Office Visit [facility] Oncology and Hematology - [place] [address] [facility] [address] [place] [address] True Wilson MD [address] [facility] [address] [place] [address] documented as of this encounter Visit Diagnoses Diagnosis Prediabetes- Primary Other abnormal glucose documented in this encounter Care Teams Community Music Therapist Relationship Specialty Start Date End Date Janet Desai MD [address] [place] [address] PCP - General Internal Medicine 03/08/24 documented as of this encounter
--- NOTE | 2024-06-20 09:00 | EST_ITS ---
Patient Info Name: Brian Akhtar Age: 38 years : 1985 Gender: Male Ht: 72 in Wt: 260 lbs BSA: 2.49 m2 HR: 57 bpm BP: 136 / 74 mmHg Exam Date: 06/20/2024 9:57 AM Exam Location: Echo Lab Patient Status: Outpatient Admit Date: 06/20/2024 Staff Ordering Physician: Jose Mayen DO Attending Provider: Jose Mayen DO Exercise Technologist: Siri Menard RDCS Exercise Physician: Jose Mayen DO Exam Type: CA stress test treadmill Study Info A treadmill exercise stress test was performed. Summary 1. 1. Negative Sukumar exercise stress test for ischemic ST changes by ECG criteria. However, patient achieved only 72% MPHR for age group due to being on Metoprolol and last dose yesterday which reduces sensitivity of the test. 2. 2. Reduced functional capacity, achieving 10 METs of workload. 3. 3. Appropriate HR response to exercise. 4. 4. Appropriate HR recovery at 1 minute post exercise. 5. 5. No imaging with stress testing. 6. 6. Patient informed of the above results. Protocol: Sukumar Stress ECG Details Stage: REST Duration (min): 1 min : 8 sec Speed (mph): 0.0 Grade (%): 0 HR (bpm): 59 SBP (mmHg): 136 DBP (mmHg): 74 METS: --- Stage: REST Duration (min): 7 min : 12 sec Speed (mph): 0.0 Grade (%): 0 HR (bpm): 62 SBP (mmHg): 136 DBP (mmHg): 74 METS: --- Stage: STAGE 1 Duration (min): 1 min : 0 sec Speed (mph): 1.7 Grade (%): 10 HR (bpm): 90 SBP (mmHg): 136 DBP (mmHg): 74 METS: --- Stage: STAGE 1 Duration (min): 2 min : 0 sec Speed (mph): 1.7 Grade (%): 10 HR (bpm): 103 SBP (mmHg): 136 DBP (mmHg): 74 METS: --- Stage: STAGE 1 Duration (min): 3 min : 0 sec Speed (mph): 1.7 Grade (%): 10 HR (bpm): 110 SBP (mmHg): 141 DBP (mmHg): 66 METS: --- Stage: STAGE 2 Duration (min): 1 min : 0 sec Speed (mph): 2.5 Grade (%): 12 HR (bpm): 118 SBP (mmHg): 141 DBP (mmHg): 66 METS: --- Stage: STAGE 2 Duration (min): 2 min : 0 sec Speed (mph): 2.5 Grade (%): 12 HR (bpm): 124 SBP (mmHg): 157 DBP (mmHg): 50 METS: --- Stage: STAGE 2 Duration (min): 3 min : 0 sec Speed (mph): 2.5 Grade (%): 12 HR (bpm): 128 SBP (mmHg): 157 DBP (mmHg): 50 METS: --- Stage: STAGE 3 Duration (min): 1 min : 0 sec Speed (mph): 3.4 Grade (%): 14 HR (bpm): 129 SBP (mmHg): 168 DBP (mmHg): 51 METS: --- Stage: STAGE 3 Duration (min): 2 min : 0 sec Speed (mph): 3.4 Grade (%): 14 HR (bpm): 132 SBP (mmHg): 168 DBP (mmHg): 51 METS: --- Stage: STAGE 3 Duration (min): 3 min : 0 sec Speed (mph): 3.4 Grade (%): 14 HR (bpm): 132 SBP (mmHg): 161 DBP (mmHg): 54 METS: --- Stage: STAGE 4 Duration (min): 0 min : 22 sec Speed (mph): 0.0 Grade (%): 0 HR (bpm): 131 SBP (mmHg): 161 DBP (mmHg): 54 METS: --- Stage: RECOVERY Duration (min): 0 min : 37 sec Speed (mph): 0.0 Grade (%): 0 HR (bpm): 110 SBP (mmHg): 161 DBP (mmHg): 54 METS: --- Stage: RECOVERY Duration (min): 1 min : 37 sec Speed (mph): 0.0 Grade (%): 0 HR (bpm): 98 SBP (mmHg): 161 DBP (mmHg): 54 METS: --- Stage: RECOVERY Duration (min): 2 min : 37 sec Speed (mph): 0.0 Grade (%): 0 HR (bpm): 86 SBP (mmHg): 161 DBP (mmHg): 54 METS: --- Stage: RECOVERY Duration (min): 3 min : 8 sec Speed (mph): 0.0 Grade (%): 0 HR (bpm): 83 SBP (mmHg): 126 DBP (mmHg): 73 METS: --- Rest HR: 62 bpm Peak HR: 133 bpm Rest Sys BP: 136 mmHg Peak Sys BP: 168 mmHg Max Pred HR: 184 bpm % Max Pred HR: 72 % Target HR: 156 bpm Max RPP: 22,344 bpm*mmHg Levine Score: -3 Termination Reason: Maximal effort/unable to continue Cardiac Symptoms: Baseline chest tightness intermittently, Shortness of breath Max ST Seg Deviation: 2.40 mm Total Time: 9 min : 22 sec Rest Chavira BP: 74 mmHg Peak Chavira BP: 51 mmHg Angina Score: None Total METS: 10.6 Resting ECG Sinus rhythm. Stress ECG No ST changes. Arrhythmias None. Report Signatures
== END 2024-06-20 08:43 | disposition home or self-care (01) ==
LOC: ANHCARD 08:43
PROVIDERS: PCP Nurse Practitioner; Visit Provider Internal Medicine Cardiovascular Disease
DX: R07.9 Chest pain, unspecified (principal); R06.09 Other forms of dyspnea
CPT/HCPCS: 93017; 93306

== ENCOUNTER 2024-09-20 13:24 | Outpatient (CLI) | payer OTHER, SELFPAY ==
--- OUTSIDE RECORDS SUMMARY | 2024-09-20 13:27 | XMS_ITS | Clinical Summary ---
Author Organization [facility] Address [address] [place] [place] [address] Care Team Providers Care Data Collector Name Role Phone Unavailable Primary Care Provider Unavailabl e Source Comments [facility],non-owned Affiliates and Associated Physician Practices is amultiple site organization consisting of ambulatory clinics and hospital sitesin [place], [place], [place] and [place]. This disclosure is being madepursuant to the Care Everywhere program and may not contain all information available regarding this patient. 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 Gender Identity Not on file Sexual Orientation [...] 5:27 PM CDT Height 185.4 cm (6' 1) 07/31/2023 5:27 PM CDT Body Mass Index 36.94 07/31/2023 5:27 PM CDT Plan of Treatment Health Maintenance Due Date Last Done Comments HIV SCREENING 08/23/2002 DTAP/TDAP/TD VACCINES (1 - Tdap) 08/23/2006 HEPATITIS B VACCINE (1 of 3 - 19+ 3-dose series) 08/23/2006 HPV VACCINE (1 - 3-dose SCDM series) 08/23/2014 COVID-19 VACCINE (1 - 2023-2 5 season) 2023 DEPRESSION SCREENING 02/22/2024 INFLUENZA VACCINE (#1) 2024 ZOSTER VACCINE (1 of 2) 08/23/2037 [...] age to complete this topic Insurance MEDICAID [facility] Advance Directives * Full Code (Latest Code Status on File) Date Activated Date Inactivated Comments 06/18/2009 4:40 PM 06/21/2009 7:33 AM
--- OUTSIDE RECORDS SUMMARY | 2024-09-20 13:27 | XMS_ITS | Clinical Summary ---
Author Organization [facility] [place] Address [address] [place] [address] Care Team Providers Care Gold Blower Name Role Phone Janet Desai MD Primary Care Provider [phone] Allergies Active Allergy Reactions Criticality Noted Date Comments Iodinated Contrast Media Anaphylaxis High 02/26/2020 Medications eszopiclone (LUNESTA) 3 mg Tablet Take 3 mg by mouth nightly as needed for Insomnia. Active lumateperone (Caplyta) 42 mg Capsule Take 42 mg by mouth daily. Active hydroCHLOROthi azide 12.5 mg tablet Take 12.5 mg by mouth daily. 4 Active testosterone [...] Puffs by inhalation. 5 02/23/19 26 Active lisinopriL (PRINIVIL) 20 mg tablet Take 20 mg by mouth 2 times daily. 5 Active citalopram (CeleXA) 20 mg tablet 5 Active diazePAM (VALIUM) 5 mg tablet 5 Active Sublocade solution, extended rel syringe 5 Active dextroamphetam ine-amphetamin e 37.5 mg capsule, ER triphasic 24 hr Active pantoprazole (PROTONIX) 40 mg Tablet, Delayed Release (E.C.) Take 1 Tablet (40 mg) by mouth daily. 1 Tablet 5 Active Active Problems Problem Noted Date Diagnosed Date STACY (obstructive sleep apnea) - dx 06/[address] scan 07/2023 and 01/202403/15/2024 Prediabetes 03/13/2024 Bipolar disorder, unspecified 09/28/2023 History of palpitations 10/22/2022 Mixed anxiety and depressive disorder 10/22/2022 History of narcotic addiction 10/22/2022 Overview (03/08/2024): In remission since 2020. Seen at [facility] for addition and psych needs. History of ETOH abuse 10/22/2022 Overview (03/08/2024): In remission since 2020. Seen at [facility] for addition and psych needs. Vitamin D insufficiency 10/22/2022 Attention deficit disorder (ADD) in adult 2022 Hepatitis C 10/21/2022 Overview (03/08/2024): Current treatment per Dr. Simon[facility]. Completed 01/2024. Panic attacks 02/26/2020 Resolved Problems Problem Noted Date Diagnosed Date Resolved Date Hepatitis C antibody test positive 10/21/2022 10/21/2022 Anxiety state 02/26/2020 10/22/2022 Precordial pain 02/26/2020 10/21/2022 Closed nondisp fracture of r ight medial malleolus with routine healing 10/21/2014 5 Encounters Date Type Department Care Team Description 07/12/2024 Results Follow-Up [facility] [place] [address] [facility] [address] Vanda Perdue, ANP METANEPHRINES FRACTIONATED, 24HR URINE, CATECHOLAMINES FRACTIONATED, 24 HR URINE 07/12/2024 Telephone [facility] [employer] Social Network Analysis [place] [address] [place] [address] Vanda Perdue, RICHARD Results (Urine, past testing. ) 06/28/2024 1:30 PM CDT Office Visit [facility] [place] [address] [place] [address] Vanda Perdue, RICHARD Chest wall pain (Primary Dx); Palpitations; Abnormal flushing and sweating; Recent weight loss; Mixed anxiety and depressive disorder 06/28/2024 Telephone [facility] [employer] [place] [address] [place] [address] Vanda Perdue, RICHARD Follow Up from Last 3 Months Immunizations Immunization Administration Dates Next Due (ADACEL/BOOSTRIX)(10 YR UP) TDAP VACCINE, 0.5ML, IM 10/21/2022 Family History Medical History Relation Name Comments No Known Problems Brother 1 No Known Problems Brother 2 No Known Problems Brother 3 No Known Problems Daughter Heart Attack Father fatal DC Alcohol abuse Maternal Grandfather COPD Maternal Grandmother [...] on file Legal 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 Gender Identity Not on file Sexual Orientation Not on file Last Filed Vital Signs Vital Sign Reading Time Taken Comments Blood Pressure 138/88 06/28/2024 1:22 PM CDT Pulse 86 06/28/2024 1:22 PM CDT Temperature 36.7 C (98.1 F) 06/28/2024 1:22 PM CDT Respiratory Rate 18 06/28/2024 1:22 PM CDT Oxygen Saturation 98% 06/28/2024 1:22 PM CDT Inhaled Oxygen Concentration - - Weight 116.6 kg (257 lb) 06/28/2024 1:22 PM CDT Height 182.9 cm (6') 06/28/2024 1:22 PM CDT Body Mass Index 34.86 06/28/2024 1:22 PM CDT Plan of Treatment Upcoming Encounters Date Type Department Care Team (Late st Contact Info) Description 09/20/2024 3:00 PM CDT Office Visit [facility] Dynamic Social Network Analysis [place] [address] [place] [address] Vanda Perdue, ANP [address] [place] [address] 09/25/2024 3:30 PM CDT Office Visit [facility] [place] [address] [facility] [address] [place] [address] True Wilson MD [address] [facility] [address] [place] [address] Health Maintenance Due Date Last Done Comments HPV VACCINES (1 - Male 3-dose series) 08/23/2002 HEPATITIS B VACCINES (1 of 3 - 19+ 3-dose series) 08/23/2006 Preventative Visit- Commercial 02/22/2024 INFLUENZA VACCINE (#1) 2024 03/08/2024 Pre-Diabetes and Diabetes Screening 03/09/202703/09 DTAP/TDAP/TD VACCINES (3 - Td or Tdap) 10/21/2032, 10/20/2014 Procedures Procedure Name Priority Date/Time Associated Diagnosis Comments CATECHOLAMINES FRACTIONATED, 24 HR URINE Routine 07/02/2024 3:24 PM CDT Palpitations Abnormal flushing and sweating Chest wall pain Recent weight loss Mixed anxiety and depressive disorder METANEPHRINES FRACTIONATED, 24HR URINE Routine 07/02/2024 3:24 PM CDT Palpitations Abnormal flushing and sweating Chest wall pain Recent weight loss Mixed anxiety and depressive disorder HEMOGLOBIN A1C Routine 03/09/2024 11:14 AM MARKETING OPERATIONS ASSOCIATE [place] from Last 3 Months or Most Recently Relevant to Health Maintenance Results * METANEPHRINES FRACTIONATED, 24HR URINE (07/02/2024 3:24 PM CDT) TOTAL VOLUME 1500 mL [facility] [facility] METANEPHRINES, 24 HR URINE 156 36 - 190 mcg/24 h [employer] [facility] Comment: This test was developed and its analytical performance characteristics have been determined by [place] It has not been cleared or approved by the U.S. Food and Drug Administration. This assay has been validated pursuant to the CLIA regulations and is used for clinical purposes. NORMETANEPHRINE, 24 HR URINE 256 35 - 482 mcg/24 h [employer] [facility] Comment: This test was developed and its analytical performance characteristics have been determined by [place] It has not been cleared or approved by the U.S. Food and Drug Administration. This assay has been validated pursuant to the CLIA regulations and is used for clinical purposes. METANEPHRINES TOTAL, 24 HR URINE 412 115 - 695 mcg/24 h [employer] [facility] Comment: A four fold elevation of urinary normetanephrines is extremely likely to be due to a tumor, while a four fold elevation of urinary metanephrines is highly suggestive, but not diagnostic of the tumor. Measurement of plasma Metanephrines and Chromogranin A is recommended for confirmation. URINE VOLUME: 1500/24 Test Performed at: [facility] [address] [facility] [address] [place] Wilfredo Virgen M.D.,PhD Urine, 24 hour 07/02/2024 3: 24 PM CDT 07/03/2024 6:56 AM CDT us Vanda Perdue ANP URINE ORDERABLES Final Resul t [facility] [phone] [facility] [address] [place] * CATECHOLAMINES FRACTIONATED, 24 HR URINE (07/02/2024 3:24 PM CDT) VOLUME, 24 HR URINE 1500 mL/24 h [facility] [facility] EPINEPHRINE, 24 HR URINE 4 2 - 24 mcg/24 h [employer] [facility] Comment: This test was developed and its analytical performance characteristics have been determined by [employer] [place], [place]. It has not been cleared or approved by the U.S. Food and Drug Administration. This assay has been validated pursuant to the CLIA regulations and is used for clinical purposes. NOREPINEPHRINE, 24 HR URINE 37 15 - 100 mcg/24 h [employer] [facility] Comment: This test was developed and its analytical performance characteristics have been determined by [employer] [place]. It has not been cleared or approved by the U.S. Food and Drug Administration. This assay has been validated pursuant to the CLIA regulations and is used for clinical purposes. CALCULATED TOTAL CATECHOLAMINES (E+NE) 41 26 - 121 mcg/24 h [employer] [facility] Comment: This test was developed and its analytical performance characteristics have been determined by [employer] [place]. It has not been cleared or approved by the U.S. Food and Drug Administration. This assay has been validated pursuant to the CLIA regulations and is used for clinical purposes. DOPAMINE, 24 HR URINE 137 52 - 480 mcg/24 h [employer] [facility] Comment: This test was developed and its analytical performance characteristics have been determined by [employer] [place]. It has not been cleared or approved by the U.S. Food and Drug Administration. This assay has been validated pursuant to the CLIA regulations and is used for clinical purposes. URINE VOLUME: 1500/24 Test Performed at: [facility] [facility] [address] [facility] [address] [place], [place] Wilfredo Virgen M.D.,PhD Urine, 24 hour 07/02/2024 3: 24 PM CDT 07/03/2024 6:56 AM CDT Vanda Perdue ANP URINE ORDERABLES Final Resul t Performing Organization Address City/State/ZIP Co ct Phone Number [facility] [phone] [facility] [facility] [address] [facility] [address] [place], [place] * (ABNORMAL) HEMOGLOBIN A1C (03/09/2024 11:14 AM MARKETING OPERATIONS ASSOCIATE) HEMOGLOBIN A1C 5.8(H) <5.7 % of total Hgb [facility] Comment: For someone without known diabetes, [...] children. ESTIMATED AVERAGE GLUCOSE (MG/DL) 120 mg/dL [facility] [place] ESTIMATED AVERAGE GLUCOSE (MMOL/L) 6.6 mmol/L [facility] [place] Comment: Test Performed at: [place] [address] [place] [address] A[employer]Josephine Thi Vo Blood 03/09/2024 11:1 4 AM MARKETING OPERATIONS ASSOCIATE 03/10/2024 12:44 AM MARKETING OPERATIONS ASSOCIATE Vanda Perdue ANP CHEMISTRY ORDERABLES Final R esult [facility] [phone] [facility] [address] [address] [place] [place] [address] from Last 3 Months or Most Recently Relevant to Health Maintenance Insurance OPEN ACCESS OPEN ACCESS [facility] OPEN ACCESS Care Teams Gold Blower Relationship Specialty Start Date End Date Janet Desai MD [address] [place] [address] [place] [address] PCP - General Internal Medicine 03/08/24
--- OUTSIDE RECORDS SUMMARY | 2024-09-20 13:27 | XMS_ITS | Referral Summary ---
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
--- OUTSIDE RECORDS SUMMARY | 2024-09-20 13:27 | XMS_ITS | Encounter Summary ---
Author Organization [facility] Address [address] [place] [address] Care Team Providers Care Tempering Oven Operator Name Role Phone Janet Desai MD Primary Care Provider [phone] Encounter Details Date Type Department Care Team (Latest Contact Info) Description 03/16/2024 Results Follow-Up [facility] [place] [facility] [employer] [place] [address] [place] [address] Vanda Perdue, RICHARD [address] [place] [address] CBC WITH DIFFERENTIAL Social History Tobacco Use Types Packs/Day Years Used Date Smoking Tobacco: Never Smokeless Tobacco: Never Alcohol Use Standard Drinks/Week Comments Yes 0 (1 standard drink = 0.6 oz pur e alcohol) Sex and Gender Information Value Date Recorded Sex Assigned at Not on file 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 Gender Identity Not on file Sexual Orientation Not on file documented as of this encounter Plan of Treatment Upcoming Encounters Date Type Department Care Team (Late st Contact Info) Description 09/20/2024 3:00 PM CDT Office Visit [facility] [place] [facility] [employer] [place] [address] [place] [address] Vanda Perdue, RICHARD [address] [facility] [address] [place] [address] 09/25/2024 3:30 PM CDT Office Visit [facility] [place] [facility] - [place] [address] [place] [address] True Wilson MD [address] [facility] [address] [place] [address] documented as of this encounter Visit Diagnoses Not on filedocumented in this encounter Care Teams Tempering Oven Operator Relationship Specialty Start Date End Date Janet Desai MD [address] [place] [address] [place] [address] PCP - General Internal Medicine 03/08/24 documented as of this encounter
--- OUTSIDE RECORDS SUMMARY | 2024-09-20 13:27 | XMS_ITS | Encounter Summary ---
Author Organization [facility] Address [address] [place] [address] Care Team Providers Care Middle School Resource Teacher Name Role Phone Janet Desai MD Primary Care Provider [phone] Encounter Details Date Type Department Care Team (Latest Contact Info) Description 03/13/2024 Results Follow-Up [facility] [employer] [place] [address] [place] [address] Vanda Perdue ANP [address] [facility] [address] [place] [address] HEMOGLOBIN A1C, COMPREHENSIVE METABOLIC PANEL, CBC WITH DIFFERENTIAL, Additional followed-up results: 2 Social History Tobacco Use Types Packs/Day Years Used Date Smoking Tobacco: Never Smokeless Tobacco: Never Alcohol Use Standard Drinks/Week Comments Yes 0 (1 standard drink = 0.6 oz pur e alcohol) Sex and Gender Information Value Date Recorded Sex Assigned at Not on file Legal Sex Male 9:32 AM 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 Urine did not show any infection. Digestive enzymes are normal, including liver and pancreas. Blood sugar in prediabetic range. Not cause of his illness. Will need to discuss in future. Infection levels are normal but platelet count is low. This is new finding. Recommend repeat CBC today or tomorrow See telephone encounter. RITY INCIDENT RESPONSE SPECIALIST documented in this encounter Plan of Treatment Upcoming Encounters Date Type Department Care Team (Late st Contact Info) Description 09/20/2024 3:00 PM CDT Office Visit [facility] [employer] [place] [address] [place] [address] Vanda Perdue, RICHARD [address] [place] [address] 09/25/2024 3:30 PM CDT Office Visit [facility] - [place] [address] [facility] [address] [place] [address] True Wilson MD [address] [facility] [address] [place] [address] documented as of this encounter Visit Diagnoses Diagnosis Prediabetes- Primary Other abnormal glucose documented in this encounter Care Teams Middle School Resource Teacher Relationship Specialty Start Date End Date Janet Desia MD [address] [address] PCP - General Internal Medicine 03/08/24 documented as of this encounter
--- OUTSIDE RECORDS SUMMARY | 2024-09-20 13:27 | XMS_ITS | Clinical Summary ---
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 Gender Identity Not on file Sexual Orientation [...] series) 08/23/2000 Regular Well Visit/Exam 18-64 08/23/2005 HPV Vaccines (1 - 3-dose SCD M series) 08/23/2014 Covid-19 Vaccine (2023-2 5 season) 2023 06/25/2020 Influenza Vaccine (#1) 2024 12/28/2008 DTaP/Tdap/Td Vaccine (3 - Td or Tdap) 10/21/2032 10/21/2022, 10/20/2014 Hepatitis B Screening Completed 09/14/2022 Hepatitis C Screening Completed 09/14/2022 , 08/01/2012 Pneumococcal vaccine <65 Aged Out No longer [...] - GENERAL ORDER THOMAS Final Result CHARISSE [address] [facility] Department [place] [address] from Last 3 Months or Most Recently Relevant to Health Maintenance Insurance [employer] AL[employer]GIANCE C[employer]LE[employer] Care Teams Brand Attendant Relationship Specialty Start Date End Date Roland Knight NP [address] [place] [address] [place] [address] PCP - General Pain Management 02/24/24
--- OUTSIDE RECORDS SUMMARY | 2024-09-20 13:27 | XMS_ITS | Encounter Summary ---
Author Organization [facility] Address [address] [place] [address] Care Team Providers Care Checker Loader Name Role Phone Janet Desai MD Primary Care Provider [phone] Encounter Details Date Type Department Care Team (Late Contact Info) Description 03/16/2024 Lab Requisition [facility] Laboratory Services S [facility] [address] [place] [address] Vanda Perdue ANP [id number] [address] [facility] [address] [place] [address] Social History Tobacco Use Types Packs/Day Years Used Date Smoking Tobacco: Never Smokeless Tobacco: Never Alcohol Use Standard Drinks/Week Comments Yes 0 (1 standard drink = 0.6 oz pur e alcohol) Sex and Gender Information Value Date Recorded Sex Assigned at Not on file 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 Gender Identity Not on file Sexual Orientation Not on file documented as of this encounter Plan of Treatment Upcoming Encounters Date Type Department Care Team (Late Contact Info) Description 09/20/2024 3:00 PM CDT Office Visit [facility] at Work [employer] [place] [address] [address] Vanda Perdue, RICHARD [address] [address] [facility] [address] [place] [address] 09/25/2024 3:30 PM CDT Office Visit [facility] Oncology and Hematology - [place] [address] [facility] [address] [place] [address] True Wilson MD [address] [facility] [address] [place] [address] documented as of this encounter Procedures Procedure Name Priority Date/Time Associated Diagnosis Comments D-DIMER Stat 03/16/2024 7:19 AM TRACTOR SWEEPER DRIVER documented in this encounter Results * (ABNORMAL) D-DIMER (03/16/2024 7:19 AM TRACTOR SWEEPER DRIVER) D-DIMER QUANT 0.95(H) <0.50 ug/mL FEU 03/16/2024 12:07 PM TRACTOR SWEEPER DRIVER [facility] [facility] Blood Collection / Unknown 03/16/2024 7:19 AM TRACTOR SWEEPER DRIVER 03/16/2024 11:28 AM TRACTOR SWEEPER DRIVER Narrative [facility] [facility] - 03/16/2024 12:07 PM TRACTOR SWEEPER DRIVER D-Dimer assay cutoff value for exclusion of DVT and/or PE is <0.50 ug/mL FEU. us Vanda Perdue ANP HEMATOLOGY ORDERABLES Final Result [facility] [employer] [facility]# [id number] [address] [facility] [address] documented in this encounter Visit Diagnoses Not on filedocumented in this encounter Care Teams Checker Loader Relationship Specialty Start Date End Date Janet Desai MD [address] [place] [address] [facility] [employer] [place] [address] PCP - General Internal Medicine 03/08/24 documented as of this encounter
--- OUTSIDE RECORDS SUMMARY | 2024-09-20 13:27 | XMS_ITS | Clinical Summary ---
Author Organization [facility] Address [address] [address] Phone Care Team Providers Care Lumber Chain Offbearer Name Role Phone Roland Knight APRN, CNP [...] Comments Hepatitis C Virus (HCV) Screening 1987 Human Papillomavirus (HPV) Immunization (1 - Male 3-dose series) 08/23/2002 Hepatitis B Immunization (1 of 3 - 19+ 3-dose series) 08/23/2006 SARS-COV-2 Immunization (2 - season) 2023 06/25/2020 Influenza Immunization (#1) 2024 Respiratory Syncytial Virus (RSV) Immunization (Adult) (1 [...] to complete this topic Insurance Care Teams Lumber Chain Offbearer Relationship Specialty Start Date End Date Roland Knight APRN, BAG REPAIRER [address] [place] [address] PCP - General Advanced Practice Nurse 06/14/23
== END 2024-09-20 13:25 | disposition home or self-care (01) ==
PROVIDERS: PCP Nurse Practitioner; Visit Provider Internal Medicine Gastroenterology
DX: K74.00 Hepatic fibrosis, unspecified (principal)
CPT/HCPCS: 84436; 84443; 84479

== ENCOUNTER 2024-10-12 18:13 | Emergency (ER) | payer OTHER, SELFPAY ==
--- OUTSIDE RECORDS SUMMARY | 2013-05-03 05:43 | XMS_ITS | Continuity of Care Document ---
Author Organization [facility] Address [address] [place] [address] Phone Care Team Providers Care Math And Science Division Chair Name Role Phone Cristobal Espinal MD Unavailable [...] - Active Procedures Procedure Date OFFICE/OUTPATIENT VISIT, [facility] Advance Directives Directive Yes / No Effective Date File Name No Information Encounters Encounter Description Practice Location Reason(s) For Visit Diagnoses Date Provider Providers Copied on Encounter OFFICE/OUTPA TIENT VISIT, [facility], [address] [place], [place], [id number], tel:[phone] [facility] back pain (chief complaint) anxiety (chief complaint) Dietary surveillance and counselingLumbagoGe neralized anxiety disorder [address] [place] [place], [place], [id number] , [place]. tel:[phone] Family History Family Member Type Diagnosis Age At Onset No Information Payers Payer name Insurance type Covered green party ID Authoriza tion(s) No Information Social History [...] Mental Status Date Cognitive Assessment Orientation - [place] ed to time, place, person, situation.
--- NOTE | ~2024-10-12 | CT_ITS ---
EXAMINATION: CT abdomen pelvis wo con DATE: 10/12/2024 19:38 INDICATION: Nausea and vomiting TECHNIQUE: Computed tomography (CT) of the abdomen and pelvis was performed without intravenous contrast. The dose-length product was 837.04 mGy-cm. Automated exposure control and iterative reconstruction technique were employed. COMPARISON: CT dated 02/21/2024 FINDINGS: There is mild emphysema of the lung bases. Heart size normal. Spleen is borderline for enlargement. Heart size normal. No significant pleural or pericardial effusion. No significant vascular abnormality. Normal appendix. The liver, pancreas, adrenal glands and kidneys are unremarkable. Gallbladder is present. Nonobstructive bowel gas pattern. No free air or free fluid. Bladder wall is mildly thickened, suspicious for cystitis. IMPRESSION: 1. Mild bladder wall thickening, suspicious for cystitis. Clinically correlate. Reviewed, dictated and finalized at location O.
--- OUTSIDE RECORDS SUMMARY | 2024-10-12 18:16 | XMS_ITS | Clinical Summary ---
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
--- OUTSIDE RECORDS SUMMARY | 2024-10-12 18:16 | XMS_ITS | Encounter Summary ---
Author Organization [facility] Address [address] [place] [address] Care Team Providers Care Instant Potato Processing Supervisor Name Role Phone Janet Desai MD Primary Care Provider [phone] Encounter Details Date Type Department Care Team (Latest Contact Info) Description 03/13/2024 Results Follow-Up [facility] [employer] [place] [address] [employer] [place] [address] Vanda Perdue ANP [address] [facility] [address] [place] [address] HEMOGLOBIN A1C, COMPREHENSIVE METABOLIC PANEL, CBC WITH DIFFERENTIAL, Additional followed-up results: 2 Social History Tobacco Use Types Packs/Day Years Used Date Smoking Tobacco: Never Smokeless Tobacco: Never Alcohol Use Standard Drinks/Week Comments Yes 0 (1 standard drink = 0.6 oz pur e alcohol) Sex and Gender Information Value Date Recorded Sex Assigned at Not on file Legal Sex Male 9:32 AM PEDICAB DRIVER Gender Identity Not on file Sexual Orientation Not on file documented as of this encounter Miscellaneous Notes * Result Encounter Note - Vanda Perdue ANP - 03/13/2024 7:20 AM PEDICAB DRIVER Contact patient regarding result. Urine did not show any infection. Digestive enzymes are normal, including liver and pancreas. Blood sugar in prediabetic range. Not cause of his illness. Will need to discuss in future. Infection levels are normal but platelet count is low. This is new finding. Recommend repeat CBC today or tomorrow See telephone encounter. CAB DRIVER documented in this encounter Plan of Treatment Upcoming Encounters Date Type Department Care Team (Late st Contact Info) Description 01/09/2025 3:45 PM PEDICAB DRIVER Office Visit [facility] Oncology and Hematology - [place] [address] [facility] [address] [place] [address] True Wilson MD [address] [facility] [address] [place] [address] documented as of this encounter Visit Diagnoses Diagnosis Prediabetes- Primary Other abnormal glucose documented in this encounter Care Teams Instant Potato Processing Supervisor Relationship Specialty Start Date End Date Janet Desai MD [address] [place] [address] PCP - General Internal Medicine 03/08/24 documented as of this encounter
--- OUTSIDE RECORDS SUMMARY | 2024-10-12 18:16 | XMS_ITS | Clinical Summary ---
Author Organization [facility] [employer] Address [address] [facility] [place] [address] Care Team Providers Care Intermediate School Teacher Name Role Phone Unavailable Primary Care Provider Unavailabl e Source Comments [facility] [employer],non-owned Affiliates and Associated Physician Practices is amultiple site organization consisting of ambulatory clinics and hospital sitesin [place], [place], [place] and [place]. This disclosure is being madepursuant to the Care Everywhere program and may not contain all information available regarding this patient. 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
--- OUTSIDE RECORDS SUMMARY | 2024-10-12 18:16 | XMS_ITS | Encounter Summary ---
Author Organization [facility] Address [address] [place] [address] Care Team Providers Care Home Visit Field Care Manager Name Role Phone Janet Desai MD Primary Care Provider [phone] Encounter Details Date Type Department Care Team (Latest Contact Info) Description 03/16/2024 Results Follow-Up [facility] at Work [address] [employer] [place] [address] [place] [address] Vanda Perdue, ANP [address] [facility] Ana Maríaflorencia Werner [facility] [address] [place] [address] CBC WITH DIFFERENTIAL Social History Tobacco Use Types Packs/Day Years Used Date Smoking Tobacco: Never Smokeless Tobacco: Never Alcohol Use Standard Drinks/Week Comments Yes 0 (1 standard drink = 0.6 oz pur e alcohol) Sex and Gender Information Value Date Recorded Sex Assigned at Not on file Legal Sex Male 9:32 AM BUTCHER Gender Identity Not on file Sexual Orientation Not on file documented as of this encounter Plan of Treatment Upcoming Encounters Date Type Department Care Team (Late st Contact Info) Description 01/09/2025 3:45 PM BUTCHER Office Visit [facility] Oncology and Hematology - [place] [address] [facility] [address] [place] [address] True Wilson MD [address] [facility] [address] [place] [address] documented as of this encounter Visit Diagnoses Not on filedocumented in this encounter Care Teams Home Visit Field Care Manager Relationship Specialty Start Date End Date Janet Desai MD [address] [place] [address] PCP - General Internal Medicine 03/08/24 documented as of this encounter
--- OUTSIDE RECORDS SUMMARY | 2024-10-12 18:16 | XMS_ITS | Clinical Summary ---
Author Organization [facility] [employer] [place] Address [address] [place] [address] Care Team Providers Care Ladies Attendant Name Role Phone Janet Desai MD Primary Care Provider Allergies Active Allergy Reactions Criticality Noted Date Comments Dextroamphetamine-Amphetamine Hypertension Medium 08/23 Iodinated Contrast Media Anaphylaxis High 02/26/2020 Medications [...] 37.5 mg capsule, ER triphasic 24 hr 5 Active pantoprazole (PROTONIX) 40 mg Tablet, Delayed Release (E.C.) Take 1 Tablet (40 mg) by mouth daily. 1 Tablet 5 Active doxycycline hyclate (VIBRAMYCIN) 100 mg capsuleIndicat ions:Acute cough Take 1 Capsule (100 mg) by mouth 2 times daily. 20 Capsule 5 Active Active Problems Problem Noted Date Diagnosed Date STACY (obstructive sleep apnea) - dx 06/[address] scan 07/2023 and 01/202403/15/2024 Prediabetes 03/13/2024 Bipolar disorder, unspecified 09/28/2023 History of palpitations 10/22/2022 Mixed anxiety and depressive disorder 10/22/2022 History of narcotic addiction 10/22/2022 Overview (03/08/2024): In remission since 2020. [facility]. History of ETOH abuse 10/22/2022 Overview (03/08/2024): In remission since 2020. [facility]. Vitamin D insufficiency 10/22/2022 Attention deficit disorder (ADD) in adult 2022 Hepatitis C 10/21/2022 Overview (03/08/2024): Current treatment per Dr. Simon. [facility]. Completed 01/2024. Panic attacks 02/26/2020 Resolved Problems Problem Noted Date Diagnosed Date Resolved Date Hepatitis C antibody test positive 10/21/2022 10/21/2022 Anxiety state 02/26/2020 10/22/2022 Precordial pain 02/26/2020 10/21/2022 Closed nondisp fracture of r ight medial malleolus with routine healing 10/21/2014 5 Encounters Date Type Department Care Team Description 10/09/2024 External Device Data STL ABSTRACTION Provider, Abstract 09/24/2024 Telephone [facility] Oncology and Hematology - [place] [address] [place] [address] True Wilson MD labs for appt 09/20/2024 3:00 PM CDT Office Visit [facility] at [facility] [employer] [place] [address] [place] [address] Vanda Perdue, RICHARD Acute cough (Primary Dx); Myalgia; Other fatigue; Hepatic fibrosis, stage 3 07/12/2024 Results Follow-Up [facility] at [facility] [employer] [place] [address] [place] [address] Vanda Perdue, RICHARD METANEPHRINES FRACTIONATED, 24HR URINE, CATECHOLAMINES FRACTIONATED, 24 HR URINE 07/12/2024 Telephone [facility] at [facility] [employer] [place] [address] [place] [address] Vanda Perdue ANP Results (Urine, past testing. ) from Last 3 Months Immunizations Immunization Administration [...] on file Legal Sex Male 9:32 AM SLP Gender Identity Not on file Sexual Orientation Not on file Last Filed Vital Signs Vital Sign Reading Time Taken Comments Blood Pressure 138/78 09/20/2024 2:58 PM CDT Pulse 97 09/20/2024 2:58 PM CDT Temperature 36.1 C (97 F) 09/20/2024 2:58 PM CDT Respiratory Rate 20 09/20/2024 2:58 PM CDT Oxygen Saturation 98% 09/20/2024 2:58 PM CDT Inhaled Oxygen Concentration - - Weight 109.3 kg (241 lb) 09/20/2024 2:58 PM CDT Height 182.9 cm (6') 09/20/2024 2:58 PM CDT Body Mass Index 32.69 09/20/2024 2:58 PM CDT Plan of Treatment Upcoming Encounters Date Type Department Care Team (Late st Contact Info) Description 01/09/2025 3:45 PM SLP Office Visit [facility] Oncology and Hematology [facility] [address] [facility] [address] [place] [address] True Wilson MD [address] [facility] [address] [place] [address] Health Maintenance Due Date Last Done Comments HPV VACCINES (1 - Male 3-dose series) 08/23/2002 HEPATITIS B VACCINES (1 of 3 - 19+ 3-dose series) 08/23/2006 Preventative Visit- Commercial 02/22/2024 INFLUENZA VACCINE (#1) 2024 03/08/2024 Pre-Diabetes and Diabetes Screening 03/09/202703/09 DTAP/TDAP/TD VACCINES (3 - Td or Tdap) 10/21/2032, 10/20/2014 Procedures Procedure Name Priority Date/Time Associated Diagnosis Comments HEMOGLOBIN A1C Routine 03/09/2024 11:14 AM SLP Polydipsia from Last 3 Months or Most Recently Relevant to Health Maintenance Results * (ABNORMAL) HEMOGLOBIN A1C (03/09/2024 11:14 AM SLP) HEMOGLOBIN A1C 5.8(H) <5.7 % of total Hgb [facility] Comment: For someone without known diabetes, [...] children. ESTIMATED AVERAGE GLUCOSE (MG/DL) 120 mg/dL [employer] darius Newell ESTIMATED AVERAGE GLUCOSE (MMOL/L) 6.6 mmol/L [facility] darius Newell Comment: Test Performed at: [facility] [address] [place] [address] Maribell Carver Blood 03/09/2024 11:1 4 AM SLP 03/10/2024 12:44 AM SLP us Vanda Perdue [facility] CHEMISTRY ORDERABLES Final R esult [facility] [phone] [facility] [address] [place] [address] from Last 3 Months or Most Recently Relevant to Health Maintenance Insurance [facility] OPEN ACCESS ALLEGIANCE OPEN ACCESS ALLEGIANCE OPEN ACCESS Care Teams Ladies Attendant Relationship Specialty Start Date End Date Janet Desai MD [address] [place] [address] [place] [address] PCP - General Internal Medicine 03/08/24
--- OUTSIDE RECORDS SUMMARY | 2024-10-12 18:16 | XMS_ITS | Encounter Summary ---
Author Organization [facility] Address [address] [place] [address] Care Team Providers Care Machinist Wood Name Role Phone Janet Desai MD Primary Care Provider [phone] Encounter Details Date Type Department Care Team (Late Contact Info) Description 03/16/2024 Lab Requisition [facility] Laboratory Services S [facility] [address] [place] [address] Vanda Perdue, ANP [address] [facility] Po[employer] Werner [facility] [address] [place] [address] Social History Tobacco Use Types Packs/Day Years Used Date Smoking Tobacco: Never Smokeless Tobacco: Never Alcohol Use Standard Drinks/Week Comments Yes 0 (1 standard drink = 0.6 oz pur e alcohol) Sex and Gender Information Value Date Recorded Sex Assigned at Not on file Legal Sex Male 9:32 AM STATISTICAL CLERK ADVERTISING Gender Identity Not on file Sexual Orientation Not on file documented as of this encounter Plan of Treatment Upcoming Encounters Date Type Department Care Team (Late Contact Info) Description 01/09/2025 3:45 PM STATISTICAL CLERK ADVERTISING Office Visit [facility] Oncology and Hematology - [place] [address] [facility] [address] [place] [address] True Wilson MD [address] [facility] [address] [place] [address] documented as of this encounter Procedures Procedure Name Priority Date/Time Associated Diagnosis Comments D-DIMER Stat 03/16/2024 7:19 AM STATISTICAL CLERK ADVERTISING documented in this encounter Results * (ABNORMAL) D-DIMER (03/16/2024 7:19 AM STATISTICAL CLERK ADVERTISING) D-DIMER QUANT 0.95(H) <0.50 ug/mL FEU 03/16/2024 12:07 PM [address]IST[address] CLERK ADVERT[address] [facility] Blood Collection / Unknown 03/16/2024 7:19 AM STATISTICAL CLERK ADVERTISING 03/16/2024 11:28 AM STATISTICAL CLERK ADVERTISING Narrative [facility] - 03/16/2024 12:07 PM STATISTICAL CLERK ADVERTISING D-Dimer assay cutoff value for exclusion of DVT and/or PE is <0.50 ug/mL FEU. us Vanda Perdue ANP HEMATOLOGY ORDERABLES Final Result [facility]# [id number] [address] [place] [address] documented in this encounter Visit Diagnoses Not on filedocumented in this encounter Care Teams Machinist Wood Relationship Specialty Start Date End Date Janet Desai MD [address] [place] [address] [place] [address] PCP - General Internal Medicine 03/08/24 documented as of this encounter
--- OUTSIDE RECORDS SUMMARY | 2024-10-12 18:16 | XMS_ITS | Clinical Summary ---
Author Organization [facility] Address [address] [address] Phone Care Team Providers Care Headmaster/Mistress Name Role Phone Roland Knight APRN, CNP [...] of 3 - 19+ 3-dose series) 08/23/2006 Human Papillomavirus (HPV) Immunization (1 - 3-dose SCDM series) 08/23/2014 SARS-COV-2 Immunization (2 - season) 2023 06/25/2020 [...] to complete this topic Insurance Care Teams Headmaster/Mistress Relationship Specialty Start Date End Date Roland Knight APRN, GASOLINE DRAGLINE OPERATOR [address] [place] [address] PCP - General Advanced Practice Nurse 06/14/23
[2024-10-12 18:17] VITALS: BP 168/77; PULSE 102; RESP 18; TEMP 36.6; O2SAT 98
[2024-10-12 19:06] LABS: Hematocrit 40.7 % (42.0-52.0); Hemoglobin 13.5 g/dL (14.0-18.0); Immature Granulocyte Percent A 0.1 % (0-0.5); Immature Platelet Fraction Pct 7.6 % (0.9-11.2); Lymphocytes Absolute Auto 2.17 K/mm3 (0.9-3.2); Mean Corpuscular HGB Conc 33.2 g/dl (32-36); Mean Corpuscular Hemoglobin 28.1 pg (26-34); Mean Corpuscular Volume 84.8 fl (80-100); Nucleated Red Blood Cells Absolute Auto 0.000 K/mm3 (0.0-0.012); Nucleated Red Blood Cells Perc 0.0 % (0.0-0.2); Platelet Count Result 141 k/mm3 (150-375); Red Blood Count 4.80 M/mm3 (4.6-6.20); White Blood Count 7.4 K/mm3 (4.5-10.0)
[2024-10-12 19:25] LABS: Alanine Aminotransferase 26 U/L (6-50); Albumin Level 4.5 g/dL (3.5-5.1); Alkaline Phosphatase 55 U/L (38-126); Anion Gap 8 mmol/L (4-12); Aspartate Amino Transferase 39 U/L (17-59); Bilirubin,Total 0.6 mg/dL (0.2-1.3); Blood Urea Nitrogen 13 mg/dL (9-20); Calcium 9.1 mg/dL (8.4-10.2); Carbon Dioxide 29 mmol/L (22-30); Chloride 100 mmol/L (98-107); Estimated CRCL calculation 107 ml/min; Estimated Glomerular Filt Rate > 60; Glucose 108 mg/dL (65-110); Lipase 21 U/L (23-300); Magnesium 1.8 mg/dL (1.6-2.3); Potassium 3.8 mmol/L (3.4-5.0); Sodium 137 mmol/L (137-145); Total Protein 8.1 g/dL (6.3-8.2)
[2024-10-12 19:26] VITALS: BP 144/75; PULSE 93; RESP 13; O2SAT 100
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
[2024-10-12 21:07] LABS: Add Urine Microscopic? NO; Appearance Urine Clear (Clear); Glucose Urine UA Negative (Negative); Leukocyte Esterase Ur Negative LEU/UL (Negative); Nitrate Urine Negative (Negative); Non Pathogenic Casts 0-2; Specific Grav Ur 1.004 (1.001-1.035)
[2024-10-12 21:09] LABS: Need Manual Microscopic Reviewed
[2024-10-12 21:22] VITALS: BP 140/78; PULSE 89; RESP 16; O2SAT 98
[2024-10-12 21:24] VITALS: BP 140/78; PULSE 89; RESP 16; O2SAT 98
== END 2024-10-12 21:27 | disposition home or self-care (01) ==
PROVIDERS: Student in an Organized Health Care Education/Training Program; Emergency Provider Emergency Medicine; PCP Nurse Practitioner Adult Health
DX: R11.2 Nausea with vomiting, unspecified (principal); R19.7 Diarrhea, unspecified; K76.9 Liver disease, unspecified; I10 Essential (primary) hypertension; Z86.19 Personal history of other infectious and parasitic diseases; Z79.899 Other long term (current) drug therapy
CPT/HCPCS: 36415; 74176; 80053; 81003; 83690; 83735; 85025; 85055; 99284

== ENCOUNTER 2024-10-21 09:27 | Emergency (ER) | payer OTHER, SELFPAY ==
--- NOTE | ~2024-10-21 | XR_ITS ---
XR abdomen/kub 1V 10/21/2024 10:59 INDICATION: Constipation. Abdomen pain. TECHNIQUE: KUB COMPARISON: CT dated 10/12/2024 FINDINGS: Bowel gas pattern is normal. Moderate colonic fecal loading. There is no evidence of free air, mass, organomegaly, ascites or obstruction. No abnormal calculi are seen. The bones appear intact. There are surgical changes consistent with acetabular repair. IMPRESSION: 1: No acute abdominal abnormality identified. Reviewed, dictated and finalized at location O.
[2024-10-21 09:33] VITALS: BP 146/87; PULSE 109; RESP 20; TEMP 36.3; O2SAT 98
[2024-10-21 10:04] LABS: Hematocrit 41.9 % (42.0-52.0); Hemoglobin 14.0 g/dL (14.0-18.0); Immature Granulocyte Percent A 0.2 % (0-0.5); Immature Platelet Fraction Pct 8.4 % (0.9-11.2); Lymphocytes Absolute Auto 2.06 K/mm3 (0.9-3.2); Mean Corpuscular HGB Conc 33.4 g/dl (32-36); Mean Corpuscular Hemoglobin 28.5 pg (26-34); Mean Corpuscular Volume 85.3 fl (80-100); Nucleated Red Blood Cells Absolute Auto 0.000 K/mm3 (0.0-0.012); Nucleated Red Blood Cells Perc 0.0 % (0.0-0.2); Platelet Count Result 136 k/mm3 (150-375); Red Blood Count 4.91 M/mm3 (4.6-6.20); White Blood Count 6.0 K/mm3 (4.5-10.0)
[2024-10-21 10:14] LABS: Alanine Aminotransferase 24 U/L (6-50); Albumin Level 4.5 g/dL (3.5-5.1); Alkaline Phosphatase 48 U/L (38-126); Anion Gap 8 mmol/L (4-12); Aspartate Amino Transferase 34 U/L (17-59); Bilirubin,Total 0.5 mg/dL (0.2-1.3); Blood Urea Nitrogen 7 mg/dL (9-20); Calcium 9.3 mg/dL (8.4-10.2); Carbon Dioxide 28 mmol/L (22-30); Chloride 101 mmol/L (98-107); Estimated CRCL calculation 116 ml/min; Estimated Glomerular Filt Rate > 60; Glucose 127 mg/dL (65-110); Lipase 17 U/L (23-300); Potassium 3.7 mmol/L (3.4-5.0); Sodium 137 mmol/L (137-145); Total Protein 8.2 g/dL (6.3-8.2)
[2024-10-21 10:18] LABS: Add Urine Microscopic? YES; Appearance Urine Cloudy (Clear); Glucose Urine UA Negative (Negative); Leukocyte Esterase Ur Negative LEU/UL (Negative); Nitrate Urine Negative (Negative); Non Pathogenic Casts 0-2; Specific Grav Ur 1.008 (1.001-1.035)
[2024-10-21 10:19] LABS: INR 1.0; Prothrombin Time 13.8 Seconds (11.1-14.7)
[2024-10-21 10:20] LABS: Partial Thromboplastin Time 30.9 Seconds (22.3-36.8)
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
[2024-10-21 11:45] VITALS: BP 142/86; PULSE 68; RESP 14; O2SAT 98
== END 2024-10-21 12:08 | disposition home or self-care (01) ==
PROVIDERS: Emergency Medicine; Emergency Provider Emergency Medicine; PCP Nurse Practitioner Adult Health
DX: R14.0 Abdominal distension (gaseous) (principal); R10.9 Unspecified abdominal pain; I10 Essential (primary) hypertension
CPT/HCPCS: 36415; 74018; 80053; 81001; 83605; 83690; 85025; 85055; 85610; 85730; 99283

== ENCOUNTER 2024-11-03 17:17 | Emergency (ER) | payer OTHER, SELFPAY ==
--- OUTSIDE RECORDS SUMMARY | 2013-05-03 05:43 | XMS_ITS | Continuity of Care Document ---
Author Organization [facility] Address [address] [place] [address] [place] [address] Phone Care Team Providers Care Call Circuit Worker Name Role Phone Cristobal Espinal MD Unavailable Unavailable Allergies, Adverse Reactions, Alerts Substance Reaction Status Criticality No Known Allergies Active No Inform ation Medications Medication Instructions Dosage Effective Dates (start - stop) Status Comments Ultram 50 mg tablet take 1 tablet (50MG) by oral route every 6 hours as needed - Active avoid driving or operate machines Xanax 1 mg tablet take 1 tablet (1MG) by oral route 2 times every day as needed 1 MG - Active avoid driving or operate machines Celexa 20 mg tablet take 1 tablet (20MG) by oral route every day 20 MG - Active Procedures Procedure Date OFFICE/OUTPATIENT VISIT, [facility] Advance Directives Directive Yes / No Effective Date File Name No Information Encounters Encounter Description Practice Location Reason(s) For Visit Diagnoses Date Provider Providers Copied on Encounter OFFICE/OUTPA TIENT VISIT, [facility], [address], [place], [id number], tel:[phone] [facility] back pain (chief complaint) anxiety (chief complaint) Dietary surveillance and counselingLumbagoGe neralized anxiety disorder [address] [employer] [address] [place], [id number] , [place]. tel:[phone] Family History Family Member Type Diagnosis Age At Onset No Information Payers Payer name Insurance type Covered democrat ID Authoriza tion(s) No Information Social History Type Description Quantity Date Captured Comments Alcohol Use Details Unknown Caffeine Use Details Unknown Tobacco Use Status No Information Smoking Status Never smoker Non-Smoking Tobacco Use Details : No Details Available : No Details Available Sex Male Vital Signs Date / Time: Height Weight BMI Pulse Rate Blood Pressure Temperature Respiratory Rate Body Surface Area Head Circumference BMI percentile Pulse Ox Inhaled Ox 11:10 AM 72.00 in 230.75 lbs 31.2 9 kg/m eter (2) 95 /min 138/85 mm[Hg] 97.7 F 18 /min Chief Complaint And Reason For Visit From encounter dated '05/03/2013 10:43'. back pain (chief complaint) anxiety (chief complaint) Plan Of Treatment Date Type Action Status No Information History Of Present Illness Encounter Date Complaint History Of Prese nt Illness No Information Instructions Date Instruction Additional Infor jacquelyn Dietary counseling Related to Di etary surveillance counseling Decrease caloric intake Related to Dietary surveillance counseling Assessments Type Assessment Date No Information Mental Status Date Cognitive Assessment Orientation - [place] ed to time, place, person, situation.
--- NOTE | ~2024-11-03 | CT_ITS ---
CT ABDOMEN AND PELVIS WITHOUT CONTRAST Clinical History: R sided abd pain, hx liver disease Comparison: CT abdomen and pelvis 10/12/2024 Technique: Unenhanced axial images lung bases to symphysis pubis Coronal, sagittal reformats CT images acquired with automatic exposure control for dose reduction DLP: 777 mGy-cm Findings: Without intravenous contrast, sensitivity for detecting visceral parenchymal abnormalities decreased. Lung bases: Focal emphysema right base. Visualized heart and pericardium: Unremarkable. Liver: Unremarkable. Gallbladder: Unremarkable. Spleen: Enlarged. Pancreas: Unremarkable. Adrenal glands: Unremarkable. Kidneys: Right kidney- No hydronephrosis. No renal stones. Left kidney- No hydronephrosis. No renal stones. Distal esophagus/stomach: Unremarkable. Small bowel loops: Normal caliber and wall thickness. Colon: Normal caliber and wall thickness. Normal appendix, right upper quadrant. Nodes: No enlarged nodes. Peritoneum: No ascites. No free intraperitoneal air. Urinary bladder: Unremarkable. Prostate: Unremarkable. Bones: No acute bony abnormality. Soft tissues: Tiny umbilical hernia with fat. Unopacified abdominal aorta: No aneurysmal dilatation. IMPRESSION: 1. No acute findings. Reviewed, dictated and finalized at location R. IMPRESSION: 1. No acute findings.
--- OUTSIDE RECORDS SUMMARY | 2024-11-03 17:19 | XMS_ITS | Encounter Summary ---
Author Organization [facility] Address [address] [place] [address] Care Team Providers Care New Accounts Representative Name Role Phone Janet Desai MD Primary Care Provider [phone] Encounter Details Date Type Department Care Team (Latest Contact Info) Description 03/13/2024 Results Follow-Up [facility] [place] [employer] [place] [address] [place] [address] Vanda Perdue ANP [address] [facility] [address] [place] [address] HEMOGLOBIN A1C, COMPREHENSIVE METABOLIC PANEL, CBC WITH DIFFERENTIAL, Additional followed-up results: 2 Social History Tobacco Use Types Packs/Day Years Used Date Smoking Tobacco: Never Smokeless Tobacco: Never Alcohol Use Standard Drinks/Week Comments Yes 0 (1 standard drink = 0.6 oz pur e alcohol) Sex and Gender Information Value Date Recorded Sex Assigned at Not on file Legal Sex Male 9:32 AM BINGO USHER Gender Identity Not on file Sexual Orientation Not on file documented as of this encounter Miscellaneous Notes * Result Encounter Note - Vanda Perdue ANP - 03/13/2024 7:20 AM BINGO USHER Contact patient regarding result. Urine did not show any infection. Digestive enzymes are normal, including liver and pancreas. Blood sugar in prediabetic range. Not cause of his illness. Will need to discuss in future. Infection levels are normal but platelet count is low. This is new finding. Recommend repeat CBC today or tomorrow See telephone encounter. O USHER documented in this encounter Plan of Treatment Upcoming Encounters Date Type Department Care Team (Late st Contact Info) Description 11/06/2024 1:30 PM CDT Office Visit [facility] [place] [employer] [place] [address] [facility] [place] [id number] Vanda Perdue, RICHARD [address] [place] [address] 01/09/2025 3:45 PM BINGO USHER Office Visit [facility] Oncology and Hematology - [place] [address] [facility] [address] [place] [address] True Wilson MD [address] [facility] [address] [place] [address] 05/01/2025 1:40 PM CDT Initial consult [facility] Gastroenterology [address] [facility] [address] [place] [address] Pinky Davila MD [address] [facility] [address] - [place] [address] documented as of this encounter Visit Diagnoses Diagnosis Prediabetes- Primary Other abnormal glucose documented in this encounter Care Teams New Accounts Representative Relationship Specialty Start Date End Date Janet Desai MD [address] [place] [address] PCP - General Internal Medicine 03/08/24 documented as of this encounter
--- OUTSIDE RECORDS SUMMARY | 2024-11-03 17:19 | XMS_ITS | Clinical Summary ---
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 before breakfast Active metoprolol XL (TOPROL-XL) 50 [...] Encounters Date Type Department Care Team Description 10/14/2024 10:56 PM CDT - 10/15/2024 1:46 AM CDT Emergency [facility] Emergency Department [address] [place], [place] [id number] Sky Camacho MD Anemia, unspecified type (Primary Dx) Discharge Disposition: Discharge to home or self care 10/14/2024 8:14 PM CDT - 10/14/2024 11:59 PM CDT Hospital Encounter [facility] Emergency, Room R Discharge Disposition: Discharge to home or self care from Last 3 Months Social History Tobacco Use Types Packs/Day Years Used Date Smoking Tobacco: Never Passive Smoke Exposure: Never Smokeless Tobacco: Never Personal Safety Answer Date Recorded Have you ever been in or are you currently in a harmful physical or emotional relationship or is someone making you feel afraid or unsafe? 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 Gender Identity Not on file Sexual Orientation Not on file Obstetrics History Last Filed Vital Signs Vital Sign Reading Time Taken Comments Blood Pressure 137/73 10/15/2024 1:43 AM CDT Pulse 81 10/15/2024 1:43 AM CDT Temperature 36.8 C (98.3 F) 10/14/2024 8:38 PM CDT Respiratory Rate 16 10/15/2024 1:43 AM CDT Oxygen Saturation 98% 10/15/2024 1:43 AM CDT Inhaled Oxygen Concentration - - Weight 105.7 kg (233 lb) 10/14/2024 8:38 PM CDT Height 182.9 cm (6') 10/14/2024 8:38 PM CDT Body Mass Index 31.6 10/14/2024 8:38 PM CDT Plan of Treatment Health Maintenance Due Date Last Done Comments Depression Screening 1987 Varicella Vaccines (1 of 2 - 13+ 2-dose series) 08/23/2000 Regular Well Visit/Exam 18-64 08/23/2005 HPV Vaccines (1 - 3-dose SCD M series) 08/23/2014 Covid-19 Vaccine (2 - 2024-2 6 season) 2024 06/25/2020 Influenza Vaccine (#1) 2024 12/28/2008 DTaP/Tdap/Td Vaccine (3 - Td or Tdap) 10/21/2032 10/21/2022, 10/20/2014 Hepatitis B Screening Completed 09/14/2022 Hepatitis C Screening Completed 09/14/2022 , 08/01/2012 Pneumococcal vaccine <65 Aged Out No longer eligible based on patient's age to complete this topic Procedures Procedure Name Priority Date/Time Associated Diagnosis Comments INFLUENZA A/B, RSV, AND COVID-19 PCR STAT 10/15/2024 12:31 AM CDT SEPSIS LACTATE WITH REFLEX STAT 10/14/2024 11:40 PM CDT APTT STAT 10/14/2024 11:40 PM CDT PROTIME-INR STAT 10/14/2024 11:40 PM CDT MAGNESIUM STAT 10/14/2024 11:40 PM CDT AMMONIA STAT 10/14/2024 11:40 PM CDT URINALYSIS AND REFLEX TO MICROSCOPIC AND CULTURE STAT 10/14/2024 11:40 PM CDT BLOOD CULTURE Routine 10/14/2024 11:40 PM CDT BLOOD CULTURE Routine 10/14/2024 11:[address] CHEST ABDOMEN PELVIS WO CONTRAST ED 10/14/2024 11:33 PM CDT EGFR STAT 10/14/2024 8:48 PM CDT DIFFERENTIAL AUTO STAT 10/14/2024 8:4 8 PM CDT LIPASE STAT 10/14/2024 8:48 PM CDT COMPREHENSIVE METABOLIC PANEL STAT 10/14/2024 8:48 PM CDT CBC WITH AUTO DIFFERENTIAL STAT 10/14/2024 8:48 PM CDT HEPATITIS C ANTIBODY Routine 09/14/2022 8:25 AM CDT from Last 3 Months or Most Recently Relevant to Health Maintenance Results * Influenza A/B, RSV, and COVID-19 PCR Nasopharyngeal (10/15/2024 12:31 AM CDT) COVID-19 RNA Negative Negative Influenza A RNA Negative Negative [facility] ([place]) Influenza B RNA Negative Negative [facility] ([place]) RSV RNA Negative Negative [facility] ([place]) Comment: Interpretive data: Testing performed by [facility]. This test is performed using the [employer] Xpert Xpress CoV-2/Flu/RSV plus assay. This is a multiplex, real- time reverse transcriptase PCR assay intended for the qualitative detection of nucleic acid from SARS-CoV-2, influenza A, influenza B, and respiratory syncytial virus. This assay has been cleared by the [place] Food and Drug administration. The performance characteristics have been verified by the [facility]. Results must be considered in the clinical context, and a negative result does not rule out infection. Interpretive Data last revised 2023 Nasopharyngeal 10/15/2024 12 :31 AM CDT 10/15/2024 12:33 AM CDT Narrative [facility] ([place]) - 10/15/2024 1:18 AM CDT Is the Patient experiencing symptoms consistent with COVID?->Yes Sky Camacho MD LAB MICROBIOLOGY - GENERAL OR DERABLES Final Result [facility] ([place]) 1 [facility] [place] [address] * Sepsis Lactate w/ Reflex (10/14/2024 11:40 PM CDT) Sepsis Lactate 0.8 0.7 - 2.0 mmol/L Blood 10/14/2024 11:4 0 PM CDT 10/14/2024 11:48 PM CDT Sky Camacho MD LAB BLOOD ORDERABLES Final Re sult Performing Organization Address [facility] Co de Phone Number [facility] ([place]) 1 [facility] [place] [address] * (ABNORMAL) Urinalysis reflex to microscopic and culture Urine, bladder (10/14/2024 11:40 PM CDT) Color, ur Straw Yellow Clarity, ur Clear Clear [facility] ([place]) Specific gravity, ur 1.001(L) 1.003 - 1.030 [facility] ([place]) pH, urine 6.5 [facility] ([place]) Comment: Interpretive Data U rine pH is affected by diet, medications, systemic acid-base disturbances, and renal tubular function. pH may affect urinary stone formation. For example, urine pH below 6.0 may help reduce the tendency for calcium phosphate stones and pH greater than 6.0 may reduce the tendency for uric acid stone formation. Source: [facility] addwish Current Interpretive Data was last revised on 2017 Protein, ur ql Negative Negative [facility] ([place]) Glucose, ur ql Negative Negative [facility] ([place]) Ketones, ur Negative Negative [facility] ([place]) Bilirubin, ur Negative Negative [facility] ([place]) Blood, ur Negative Negative [facility] ([place]) Urobilinogen, ur <2.0 <2.0 mg/dL [facility] ([place]) Nitrite, ur Negative Negative [facility] ([place]) Leukocyte esterase, ur Negative Negative [facility] ([place]) UA reflex comment Reflex conditions for microscopic UA and culture not met. [facility] ([place]) Urine, bladder 10/14/2024 11 :40 PM CDT 10/14/2024 11:48 PM CDT us Sky Camacho MD LAB MICROBIOLOGY - GENERAL OR DERABLES Final Result [facility] ([place]) 1 [facility] Department [place] [address] * Blood culture Blood (10/14/2024 11:40 PM CDT) Report Final Report: No growth Comment:Testing performed by : [facility], [address] [place] [address] Blood 10/14/2024 11:4 0 PM CDT 10/15/2024 1:42 AM CDT Narrative [facility] ([place]) - 10/19/2024 7:00 AM CDT From a different site than #1. Collection->Peripheral 1. Blood cultures are incubated for 4 days on a continuously monitored blood culture system. The first report of a negative culture is issued within 24 hours of receipt of the specimen in the laboratory. 2. Positive culture results are reported as soon as they are detected. 3. The most important factor for detection of microbes in the setting of bloodstream infection is the volume of blood submitted for culture. Failure to collect an optimal blood volume can result in false negative blood cultures. 4. For pediatric patients, the recommended blood volume to collect follows a weight based strategy. See the electronic test catalog for collection instructions. 5. For positive blood cultures, a rapid molecular test may be performed for organism identification using the cornelia ePlex blood culture identification panel for gram positive (BCID-GP) and gram negative (BCID-GN) organisms. This nucleic acid amplification test detects microbial DNA in positive blood culture broth. This assay has been cleared by the [place] Food and Drug Administration and its performance characteristics have been verified by the [facility]. For questions about this culture, contact the Microbiology Laboratory at [phone]. Interpretive data was last revised on 23. Sky Camacho MD LAB MICROBIOLOGY - GENERAL OR DERABLES Final Result [facility] PART[facility]) 1 [facility] Department [place] [address] * Blood culture Blood (10/14/2024 11:40 PM CDT) Report Final Report: No growth Comment:Testing performed by : [facility], [address] [facility] [place] [address] Blood 10/14/2024 11:4 0 PM CDT 10/15/2024 1:42 AM CDT Narrative [facility] ([place]) - 10/19/2024 7:00 AM CDT Collection->Peripheral 1. Blood cultures are incubated for 4 days on a continuously monitored blood culture system. The first report of a negative culture is issued within 24 hours of receipt of the specimen in the laboratory. 2. Positive culture results are reported as soon as they are detected. 3. The most important factor for detection of microbes in the setting of bloodstream infection is the volume of blood submitted for culture. Failure to collect an optimal blood volume can result in false negative blood cultures. 4. For pediatric patients, the recommended blood volume to collect follows a weight based strategy. See the electronic test catalog for collection instructions. 5. For positive blood cultures, a rapid molecular test may be performed for organism identification using the cornelia ePlex blood culture identification panel for gram positive (BCID-GP) and gram negative (BCID-GN) organisms. This nucleic acid amplification test detects microbial DNA in positive blood culture broth. This assay has been cleared by the [place] Food and Drug Administration and its performance characteristics have been verified by the [facility]. For questions about this culture, contact the Microbiology Laboratory at [phone]. Interpretive data was last revised on 23. Sky Camacho MD LAB MICROBIOLOGY - GENERAL OR DERABLES Final Result [facility] RO[facility]AL ([place]) 1 [facility] [place] [address] * aPTT (10/14/2024 11:40 PM CDT) aPTT 30 26 - 38 sec [facility] ([place]) Comment: Interpretive Data Heparin therapeutic range: 66.0 - 100.0 seconds. Range based on correlation with therapeutic heparin activity range of 0.3 - 0.7 Units/mL. Current interpretive data was last revised on 2022. Blood 10/14/2024 11:4 0 PM CDT 10/14/2024 11:48 PM CDT Sky Camacho MD LAB BLOOD ORDERABLES Final Re sult Performing Organization Address [facility] de Phone Number [facility] ([place]) 1 [facility] [place] [address] * Protime-INR (10/14/2024 11:40 PM CDT) PT 12.4 10.2 - 13.5 sec [facility] ([place]) INR 1.10 0.90 - 1.20 [facility] ([place]) Comment: Interpretive data Oral anticoagulant therapeutic ranges: Venous thromboembolism prophylaxis or treatment: 2.0-3.0 CARDIOLOGY Standard range: 2.0-3.0 High-intensity range: 2.5-3.5 Refer to indication-specific guidelines for appropriate target ranges for prosthetic heart valve replacement. Current interpretive data was last revised on 2019. Blood 10/14/2024 11:4 0 PM CDT 10/14/2024 11:48 PM CDT us Sky Camacho MD LAB BLOOD ORDERABLES Final Re sult Performing Organization Address [facility] Co de Phone Number [facility] ROYAL ([place]) 1 [facility] [place] [address] * Magnesium (10/14/2024 11:40 PM CDT) Magnesium 1.6 1.4 - 2.5 mg/dL [facility] ([place]) Blood 10/14/2024 11:4 0 PM CDT 10/14/2024 11:48 PM CDT Sky Camacho MD LAB BLOOD ORDERABLES Final Re sult Performing Organization Address [facility]/ZIP Co de Phone Number [facility] ROYAL ([place]) 1 [facility] [place] [address] * Ammonia (10/14/2024 11:40 PM CDT) Ammonia 23 <=50 mcmol/L [facility] ([place]) Blood 10/14/2024 11:4 0 PM CDT 10/14/2024 11:48 PM CDT Sky Camacho MD LAB BLOOD ORDERABLES Final Re sult Performing Organization Address [facility] de Phone Number [facility] ([place]) 1 [facility] [place] [address] * CT Chest Abdomen Pelvis WO Contrast (10/14/2024 11:33 PM CDT) Anatomical Region Laterality Modality Body N/A Computed Tomogra phy 10/14/2024 11:4 4 PM CDT Narrative 10/14/2024 11:53 PM CDT EXAM DESCRIPTION: CT CHEST ABDOMEN PELVIS WO CONTRAST REASON FOR STUDY: Left upper quadrant pain rule out pneumonia rule out splenic lesion diverticulitis left upper quadrant pain seen at Hallie Tuesday discharge hOme to follow up with GI TECHNIQUE: CT scan of the chest, abdomen, and pelvis performed without intravenous and without oral contrast using helical scanning technique. Reconstructed coronal and sagittal MPR images reviewed. All images stored on PACS. Automated exposure control was used as a dose optimization technique for this examination. COMPARISON: CT of the abdomen and pelvis of August 01, 2012. REFERENCE: Per ACR white paper recommendations, unless otherwise specified no follow-up imaging is recommended for incidental renal and adrenal lesions per consensus recommendations based on imaging criteria. Further lab evaluation could be pursued based on clinical findings. FINDINGS: The sensitivity for detection of solid visceral lesions is diminished without the use of intravenous contrast. CHEST NECK BASE: Unremarkable on this non-contrast CT. HARDWARE/LINES/TUBES: None. LYMPH NODES: No axillary, mediastinal or hilar lymphadenopathy is seen by CT size criteria on this non-contrast CT. MEDIASTINUM/YULIANA: No masses seen. The aorta and great vessels appear normal. There is no significant coronary artery calcification. Heart size is normal. There is no significant pericardial effusion. PLEURA: No effusion. No pneumothorax. LUNGS: The lungs are clear. The central airways are normal. MUSCULOSKELETAL: No acute abnormality. CHEST WALL/BREAST: There is bilateral gynecomastia. OTHER: No other significant abnormality. ABDOMEN/PELVIS LIVER: The liver is normal in attenuation without focal lesion. GALLBLADDER: No stones identified. Normal wall. No evidence of pericholecystic fluid. BILE DUCTS: No intrahepatic or extrahepatic ductal dilatation. PANCREAS: Normal. SPLEEN: No focal lesions. Spleen is normal in size. ADRENALS: Normal. KIDNEYS/URINARY TRACT: No significant cystic or solid masses. No visualized renal or ureteral stones. There is no hydronephrosis or hydroureter. Urinary bladder is unremarkable. VASCULATURE: No acute abnormality seen. No abdominal aortic aneurysm. GI: The stomach appears normal. There is no significant small bowel dilation or visible thickening. No gross colonic abnormalities identified. The appendix is normal. PERITONEUM/MESENTERY: No ascites or free air. LYMPH NODES: There are no enlarged lymph nodes seen by CT size criteria. RETROPERITONEUM: No retroperitoneal abnormalities. REPRODUCTIVE: The prostate and seminal vesicles are unremarkable. MUSCULOSKELETAL: There are sequelae of open reduction and internal fixation of the posterior column of the right hemipelvis. No acute bony abnormalities are seen. OTHER: No other abnormality. IMPRESSION: 1. No acute findings in the chest, abdomen or pelvis. 2. Bilateral gynecomastia. 3. Sequelae of open reduction and internal fixation of the posterior column of the right hemipelvis. THIS IS AN ELECTRONICALLY VERIFIED FINAL REPORT 10/14/2024 11:53 PM - Electronically signed by Bonny Tian M.D. SN: Report ID: [id number] Reading Location: [id number] Procedure Note Bonny Tian MD - 10/14/2024 EXAM DESCRIPTION: CT CHEST ABDOMEN PELVIS WO CONTRAST REASON FOR STUDY: Left upper quadrant pain rule out pneumonia rule outsplenic lesion diverticulitis left upper quadrant pain seen at Hallie Zaid discharge hOme to followup with GI TECHNIQUE: CT scan of the chest, abdomen, and pelvis performed without intravenous and without oral contrast using helical scanning technique. Reconstructed coronal and sagittal MPR images reviewed. All images storedon PACS. Automated exposure control was used as a dose optimizationtechnique for this examination. COMPARISON: CT of the abdomen and pelvis of August 01, 2012. REFERENCE: Per ACR white paper recommendations, unless otherwise specifiedno follow-up imaging is recommended for incidental renal and adrenal lesionsper consensus recommendations based on imaging criteria. Further labevaluation could be pursued based on clinical findings. FINDINGS: The sensitivity for detection of solid visceral lesions is diminishedwithout the use of intravenous contrast. CHEST NECK BASE: Unremarkable on this non-contrast CT. HARDWARE/LINES/TUBES: None. LYMPH NODES: No axillary, mediastinal or hilar lymphadenopathy is seen byCT size criteria on this non-contrast CT. MEDIASTINUM/YULIANA: No masses seen. The aorta and great vessels appear normal. There is no significant coronary artery calcification. Heartsize is normal. There is no significant pericardial effusion. PLEURA: No effusion. No pneumothorax. LUNGS: The lungs are clear. The central airways are normal. MUSCULOSKELETAL: No acute abnormality. CHEST WALL/BREAST: There is bilateral gynecomastia. OTHER: No other significant abnormality. ABDOMEN/PELVIS LIVER: The liver is normal in attenuation without focal lesion. GALLBLADDER: No stones identified. Normal wall. No evidence of pericholecystic fluid. BILE DUCTS: No intrahepatic or extrahepatic ductal dilatation. PANCREAS: Normal. SPLEEN: No focal lesions. Spleen is normal in size. ADRENALS: Normal. KIDNEYS/URINARY TRACT: No significant cystic or solid masses. Novisualized renal or ureteral stones. There is no hydronephrosis or hydroureter. Urinary bladder is unremarkable. VASCULATURE: No acute abnormality seen. No abdominal aortic aneurysm. GI: The stomach appears normal. There is no significant small bowel dilation or visible thickening. No gross colonic abnormalitiesidentified. The appendix is normal. PERITONEUM/MESENTERY: No ascites or free air. LYMPH NODES: There are no enlarged lymph nodes seen by CT size criteria. RETROPERITONEUM: No retroperitoneal abnormalities. REPRODUCTIVE: The prostate and seminal vesicles are unremarkable. MUSCULOSKELETAL: There are sequelae of open reduction and internalfixation of the posterior column of the right hemipelvis. No acute bonyabnormalities are seen. OTHER: No other abnormality. IMPRESSION: 1. No acute findings in the chest, abdomen or pelvis. 2. Bilateral gynecomastia. 3. Sequelae of open reduction and internal fixation of the posteriorcolumn of the right hemipelvis. THIS IS AN ELECTRONICALLY VERIFIED FINAL REPORT 10/14/2024 11:53 PM - Electronically signed by Bonny Tian M.D. SN: SN Report ID: [id number] Reading Location: [place] [address] Sky Camacho MD IM CT PROCEDURES Final Resul t * eGFR (10/14/2024 8:48 PM CDT) eGFR >90 >=60 mL/min/1. 73 m2 Comment: [...] interpretive data was last reviewed 2020. Blood 10/14/2024 8:48 PM CDT 10/14/2024 8:54 PM CDT us Sky Camacho MD LAB BLOOD ORDERABLES Final Re sult [facility] ([place]) 1 [facility] Department [place] [address] * Differential, auto (10/14/2024 8:48 PM CDT) Neutrophil abs 5.36 1.50 - 6.50 K/cumm Imm gran abs 0.02 0.00 - 0.10 K/cumm [facility] ([place]) Lymphocyte abs 2.19 0.80 - 3.30 K/cumm [facility] ([place]) Monocyte abs 0.46 0.20 - 0.80 K/cumm [facility] ([place]) Eosinophil abs 0.01 0.00 - 0.50 K/cumm [facility] ([place]) Basophil abs 0.01 0.00 - 0.10 K/cumm [facility] ([place]) Neutrophil pct 66.7 % [facility] ([place]) Comment: Interpretive Data Percent cell count reference ranges are not reported, since discordance with absolute values may lead to misinterpretation of CBC data. Current Interpretive Data was last revised on 2017. Imm gran pct 0.2 % [facility] ([place]) Comment: Interpretive Data Percent cell count reference ranges are not reported, since discordance with absolute values may lead to misinterpretation of CBC data. Current Interpretive Data was last revised on 2017. Lymphocyte pct 27.2 % [facility] ([place]) Comment: Interpretive Data Percent cell count reference ranges are not reported, since discordance with absolute values may lead to misinterpretation of CBC data. Current Interpretive Data was last revised on 2017. Monocyte pct 5.7 % [facility] ([place]) Comment: Interpretive Data Percent cell count reference ranges are not reported, since discordance with absolute values may lead to misinterpretation of CBC data. Current Interpretive Data was last revised on 2017. Eosinophil pct 0.1 % [facility] ([place]) Comment: Interpretive Data Percent cell count reference ranges are not reported, since discordance with absolute values may lead to misinterpretation of CBC data. Current Interpretive Data was last revised on 2017. Basophil pct 0.1 % [facility] ([place]) Comment: Interpretive Data Percent cell count reference ranges are not reported, since discordance with absolute values may lead to misinterpretation of CBC data. Current Interpretive Data was last revised on 2017. Blood 10/14/2024 8:48 PM CDT 10/14/2024 8:54 PM CDT us Sky Camacho MD LAB BLOOD ORDERABLES Final Re sult [facility] ([place]) 1 [facility] Department [place] [address] * (ABNORMAL) CBC with auto differential (10/14/2024 8:48 PM CDT) WBC 8.05 3.80 - 9.90 K/cumm Hgb 12.6(L) 13.0 - 17.5 g/dL [facility] ([place]) Hct 36.3(L) 38.9 - 50.3 % [facility] ([place]) Plt 123(L) 150 - 400 K/cumm [facility] ([place]) Comment:Although platelets a re clumped on slide, platelet estimate appears adequate to increased in number. MPV 11.0 9.1 - 12.3 fL [facility] ([place]) RBC 4.34 4.30 - 5.80 M/cumm [facility] ([place]) MCV 83.6 81.3 - 96.4 fL [facility] ([place]) MCH 29.0 27.1 - 33.3 pg [facility] ([place]) MCHC 34.7 32.3 - 35.7 g/dL [facility] ([place]) RDW CV 11.9 11.1 - 14.9 % [facility] ([place]) RDW SD 36.2 35.7 - 48.1 fL [facility] ([place]) NRBC abs 0.00 0.00 - 0.01 K/cumm [facility] ([place]) Morphologic Screen Results confirmed by manual morphology review. [facility] ([place]) Blood 10/14/2024 8:48 PM CDT 10/14/2024 8:54 PM CDT Sky Camacho MD LAB BLOOD ORDERABLES Final Re sult [facility] ([place]) 1 [facility] [place] [address] * Lipase (10/14/2024 8:48 PM CDT) Lipase 18 10 - 99 Units/L [facility] ([place]) Blood 10/14/2024 8:48 PM CDT 10/14/2024 8:54 PM CDT us Sky Camacho MD LAB BLOOD ORDERABLES Final Re sult Performing Organization Address City/[facility]/ZIP Co de Phone Number [facility] ([place]) 1 [facility] [place] [address] * (ABNORMAL) Comprehensive metabolic panel (10/14/2024 8:48 PM CDT) Sodium 132(L) 135 - 145 mmol/L [facility] ([place] Potassium, pl 3.4 3.3 - 4.9 mmol/L [facility] Chloride 94(L) 97 - 110 mmol/L [facility] CO2 24 22 - 32 mmol/L [facility]) Anion gap 14 2 - 15 mmol/L [facility] ([place]) BUN 8 6 - 25 mg/dL [facility] Creatinine 0.88 0.80 - 1.30 mg/dL [facility] ([place]) Glucose 118 70 - 199 mg/dL [facility] ([place]) [...] interpretive data was last revised 2022. Calcium 8.6 8.5 - 10.3 mg/dL [facility] ([facility]) Bilirubin, total 0.5 0.1 - 1.2 mg/dL [facility] ([facility]) Protein, pl 7.3 6.5 - 8.5 g/dL [facility] ([facility]) Albumin 4.2 3.5 - 5.0 g/dL [facility] ([facility]) Alk phos 51 40 - 130 Units/L [facility] ([facility]) ALT 19 7 - 55 Units/L [facility] ([facility]) AST 27 10 - 50 Units/L [facility] ([facility]) Blood 10/14/2024 8:48 PM CDT 10/14/2024 8:54 PM CDT us Sky Camacho MD LAB BLOOD ORDERABLES Final Re sult Performing Organization Address [facility] Co de Phone Number [facility] ([facility]) [address] [facility] [place] [address] * (ABNORMAL) Hepatitis C antibody (09/14/2022 8:25 AM CDT) Hep C Ab Reactive( A) Nonreactive [facility] Comment: Interpretive Data Nonreactive: Antibodies to HCV [...] ORDER THOMAS Final Result Performing Organization Address City/[facility]/ZIP Co de Phone Number [facility] [address] [facility] [place] [address] from Last 3 Months or Most Recently Relevant to Health Maintenance Insurance [employer] Care Teams Video Games Mechanic Relationship Specialty Start Date End Date Roland Knight NP [address] [place] [address] PCP - General Pain Management 02/24/24
--- OUTSIDE RECORDS SUMMARY | 2024-11-03 17:19 | XMS_ITS | Encounter Summary ---
Author Organization [facility] Address [address] [place] [address] Care Team Providers Care Audiovisual Equipment Operator Name Role Phone Janet Desai MD Primary Care Provider [phone] Encounter Details Date Type Department Care Team (Late Contact Info) Description 03/16/2024 Lab Requisition [facility] Laboratory Services [address] [facility] [address] [place] [address] Vanda Perdue ANP 135[address] Lib[address] Caldera [facility] [address] [place] [address] Social History Tobacco Use Types Packs/Day Years Used Date Smoking Tobacco: Never Smokeless Tobacco: Never Alcohol Use Standard Drinks/Week Comments Yes 0 (1 standard drink = 0.6 oz pur e alcohol) Sex and Gender Information Value Date Recorded Sex Assigned at Not on file Legal Sex Male 9:32 AM EMT/PARAMEDIC Gender Identity Not on file Sexual Orientation Not on file documented as of this encounter Plan of Treatment Upcoming Encounters Date Type Department Care Team (Late Contact Info) Description 11/06/2024 1:30 PM CDT Office Visit [facility] at Work [employer] [place] [address] [place] [id number] Vanda Perdue, RICHARD [address] Libia Caldera [facility] [address] [place] [address] 01/09/2025 3:45 PM EMT/PARAMEDIC Office Visit [facility] Oncology and Hematology - [address] [place] [address] True Wilson MD [address] [facility] [address] [place] [address] 05/01/2025 1:40 PM CDT Initial consult [facility] Gastroenterology [address] [facility] [address] [place] [address] Pinky Davila MD [address] [facility] [address] - [place] [address] documented as of this encounter Procedures Procedure Name Priority Date/Time Associated Diagnosis Comments D-DIMER Stat 03/16/2024 7:19 AM EMT/PARAMEDIC documented in this encounter Results * (ABNORMAL) D-DIMER (03/16/2024 7:19 AM EMT/PARAMEDIC) D-DIMER QUANT 0.95(H) <0.50 ug/mL FEU 03/16/2024 12:07 PM EMT/PARAMEDIC [facility] Blood Collection / Unknown 03/16/2024 7:19 AM EMT/PARAMEDIC 03/16/2024 11:28 AM EMT/PARAMEDIC Narrative [facility] - 03/16/2024 12:07 PM EMT/PARAMEDIC D-Dimer assay cutoff value for exclusion of DVT and/or PE is <0.50 ug/mL FEU. us Vanda Perdue ANP HEMATOLOGY ORDERABLES Final Result [facility] CLIA# [id number] [address] [place] [place] [address] documented in this encounter Visit Diagnoses Not on filedocumented in this encounter Care Teams Audiovisual Equipment Operator Relationship Specialty Start Date End Date Janet Desai MD [address] [place] [address] [place] [address] PCP - General Internal Medicine 03/08/24 documented as of this encounter
--- OUTSIDE RECORDS SUMMARY | 2024-11-03 17:19 | XMS_ITS | Clinical Summary ---
Author Organization [facility] Address [address] [place] [address] Care Team Providers Care Helicopter Pilot Name Role Phone Janet Desai MD Primary Care Provider [phone] Allergies Active Allergy Reactions Criticality Noted Date Comments Dextroamphetamine-Amphetamine Hypertension Medium /02/2024 Iodinated Contrast Media Anaphylaxis High 02/26/2020 Methylphenidate Other (See Comments) High 10/12/2024 Medications eszopiclone (LUNESTA) 3 mg Tablet Take 3 mg by mouth nightly as needed for Insomnia. Active lumateperone (Caplyta) 42 mg Capsule Take 42 mg by mouth daily. Active testosterone cypionate (DEPO-TESTOST ERONE) 200 mg/mL Oil Inject 200 mg by intramuscular injection every 7 days. 12/23/19 24 Active Linzess 72 mcg Capsule capsule Take 72 mcg by mouth daily before breakfast. 12/14/19 24 Active metoprolol succinate (TOPROL XL) 50 mg Extended Release 24 hour tablet Take 50 mg by mouth daily. 01/03/20 24 Active lisinopriL (PRINIVIL) 20 mg tablet Take 20 mg by mouth 2 times daily. 05/12/19 25 Active citalopram (CeleXA) 20 mg tablet 05/25/19 25 Active Sublocade solution, extended rel syringe 06/19/19 25 Active dextroampheta mine-amphetam ine 37.5 mg capsule, ER triphasic 24 hr 06/28/19 25 Active pantoprazole (PROTONIX) 40 mg Tablet, Delayed Release (E.C.) Take 1 Tablet (40 mg) by mouth daily. 1 Tablet 07/13/19 Active Additional Information Patient not taking.Reported on 10/26/2024 dextroampheta mine/amphetam ine (MYDAYIS ORAL) Take by mouth. Activ e hydroCHLOROth iazide 12.5 mg tablet Take 12.5 mg by mouth daily. 01/03/20 24 025 Discontinued albuterol sulfate HFA 90 mcg/actuation aerosol inhaler Take 2 Puffs by inhalation. 02/23/19 025 Discontinued diazePAM (VALIUM) 5 mg tablet 06/26/19 025 Discontinued doxycycline hyclate (VIBRAMYCIN) 100 mg capsuleIndica tions:Acute cough Take 1 Capsule (100 mg) by mouth 2 times daily. 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 Seen at [facility] for addition and psych needs. History of ETOH abuse 10/22/2022 Overview (03/08/2024): In remission since 2020. Seen at [facility] for addition and psych needs. Vitamin D insufficiency 10/22/2022 Attention deficit disorder (ADD) in adult 2022 Hepatitis C 10/21/2022 Overview (03/08/2024): Current treatment per Dr. Simon. [facility] GI. Completed 01/2024. Panic attacks 02/26/2020 Resolved Problems Problem Noted Date Diagnosed Date Resolved Date Hepatitis C antibody test positive 10/21/2022 10/21/2022 Anxiety state 02/26/2020 10/22/2022 Precordial pain 02/26/2020 10/21/2022 Closed nondisp fracture of r ight medial malleolus with routine healing 10/21/2014 Encounters Date Type Department Care Team Description 11/02/2024 Telephone [facility] [place] [address] [place] [address] Vanda Perdue ANP Additional symptom 11/02/2024 Results Follow-Up [facility] [place] [address] [place] [address] Janet Desai MD CBC WITH DIFFERENTIAL, VITAMIN B12 AND FOLATE, FERRITIN, Additional followed-up results: 5 10/26/2024 1:30 PM CDT Office Visit [facility] [place] [address] [place] [address] Janet Desai MD Abnormal weight loss (Primary Dx); Normocytic anemia; Right upper quadrant abdominal pain; History of hepatitis C 10/09/2024 External Device Data STL ABSTRACTION Provider, Abstract 09/24/2024 Telephone [facility] Oncology [facility] Hematology - [address]ust[address] [place] [address] True Wilson MD labs for appt 09/20/2024 3:00 PM CDT Office Visit [place] [address] [place] [address] Vanda Perdue ANP Acute cough (Primary Dx); Myalgia; Other fatigue; Hepatic fibrosis, stage 3 from Last 3 Months Immunizations Immunization Administration Dates Next Due (ADACEL/BOOSTRIX)(10 YR UP) TDAP VACCINE, 0.5ML, IM 10/21/2022 Family History Medical History Relation Name Comments No Known Problems Brother 1 No Known Problems Brother 2 No Known Problems Brother 3 No Known Problems Daughter Heart Attack Father fatal [place] Alcohol abuse Maternal Grandfather COPD Maternal Grandmother [...] on file Legal Sex Male 9:32 AM BLENDING TECHNICIAN Gender Identity Not on file Sexual Orientation Not on file Last Filed Vital Signs Vital Sign Reading Time Taken Comments Blood Pressure 132/76 10/26/2024 1:19 PM CDT Pulse 78 10/26/2024 1:19 PM CDT Temperature 36.6 C (97.8 F) 10/26/2024 1:19 PM CDT Respiratory Rate 18 10/26/2024 1:19 PM CDT Oxygen Saturation 99% 10/26/2024 1:19 PM CDT Inhaled Oxygen Concentration - - Weight 106.6 kg (235 lb) 10/26/2024 1:19 PM CDT Height 182.9 cm (6') 10/26/2024 1:19 PM CDT Body Mass Index 31.87 10/26/2024 1:19 PM CDT Plan of Treatment Upcoming Encounters Date Type Department Care Team (Late st Contact Info) Description 11/06/2024 1:30 PM CDT Office Visit [facility] at [facility] [employer] [place] [address] [place] [address] Vanda Perdue, ANP [address] [address] [facility] [address] [place] [address] 01/09/2025 3:45 PM BLENDING TECHNICIAN Office Visit [facility] On[facility]ematology - [place] [facility] [address] [place] [address] True Wilson MD [address] [facility] [address] [place] [address] 05/01/2025 1:40 PM CDT Initial consult [facility] Gastroenterology [address] [facility] [address] [place] [address] Pinky Davila MD [address] - [place] [address] Health Maintenance Due Date Last Done Comments HEPATITIS B VACCINES (1 of 3 - 19+ 3-dose series) 08/23/2006 HPV VACCINES (1 - 3-dose SCDM series) 08/23/2014 Preventative Visit- Commercial 02/22/2024 INFLUENZA VACCINE (#1) 2024 Pre-Diabetes and Diabetes Screening 03/09/202703/09 DTAP/TDAP/TD VACCINES (3 - Td or Tdap) 10/21/2032, 10/20/2014 Procedures Procedure Name Priority Date/Time Associated Diagnosis Comments HENRIQUE SCREEN W/REFLEX Routine 10/26/2024 2 :30 PM CDT Abnormal weight loss SEDIMENTATION RATE Routine 10/26/2024 2: 30 PM CDT Abnormal weight loss TSH REFLEXIVE Routine 10/26/2024 2:30 PM CDT Abnormal weight loss COMPREHENSIVE METABOLIC PANEL Routine 10/26/2024 2:30 PM CDT Abnormal weight loss IRON, TIBC, AND PERCENT SATURATION Routine 10/26/2024 2:30 PM CDT Normocytic anemia FERRITIN Routine 10/26/2024 2:30 PM CDT Normocytic anemia VITAMIN B12 AND FOLATE Routine 2:30 PM CDT Normocytic anemia CBC WITH DIFFERENTIAL Routine 10/26/2024 2:30 PM CDT Abnormal weight loss HEMOGLOBIN A1C Routine 03/09/2024 11:14 AM BLENDING TECHNICIAN Polydipsia from Last 3 Months or Most Recently Relevant to Health Maintenance Results * TSH REFLEXIVE (10/26/2024 2:30 PM CDT) Pathologist [facility] TSH 1.90 0.40 - 4.50 mIU/L [facility] Comment: Test Performed at: [employer] [place] [address] [place] [address] [facility] Blood 10/26/2024 2:30 PM CDT 10/26/2024 11:00 PM CDT us Janet Desai MD CHEMISTRY ORDERABLES Final Res ult [facility] [phone] [facility] [place] [address] [place] [address] * VITAMIN B12 AND FOLATE (10/26/2024 2:30 PM CDT) Pathologist [facility] VITAMIN B12 358 200 - 1100 pg/mL [facility] Comment: Please Note: Although the reference range for vitamin B12 is 200-1100 pg/mL, it has been reported that between 5 and 10% of patients with values between 200 and 400 pg/mL may experience neuropsychiatric and hematologic abnormalities due to occult B12 deficiency; less than 1% of patients with values above 400 pg/mL will have symptoms. FOLATE, SERUM 7.3 ng/mL [facility] Comment: Reference Range Low: <3.4 Borderline: 3.4-5.4 Normal: >5.4 Test Performed at: [facility] [address] [place] [phone] [facility] Darius Carver MD Blood 10/26/2024 2:3 0 PM CDT 10/26/2024 11:00 PM CDT us Janet Desai MD CHEMISTRY ORDERABLES Final Res ult Performing Organization Address City/State/ZIP Co in Phone Number [facility] [phone] [employer] [address] [place] [address] * IRON, TIBC, AND PERCENT SATURATION (10/26/2024 2:30 PM CDT) Pathologist [facility] IRON 98 50 - 180 mcg/dL [facility] TIBC 395 250 - 425 mcg/dL (calc) [facility] IRON % SATURATION 25 20 - 48 % (calc) [facility] Comment: Test Performed at: [facility] [address] [place] [address] Maribell Carver MD Blood 10/26/2024 2:30 PM CDT 10/26/2024 11:00 PM CDT us Janet Desai MD CHEMISTRY ORDERABLES Final Res ult [facility] [phone] [address] * (ABNORMAL) CBC WITH DIFFERENTIAL (10/26/2024 2:30 PM CDT) [facility] WBC 6.4 3.8 - 10.8 Thousand/ uL [facility] RBC 4.94 4.20 - 5.80 Million/u L [facility] HEMOGLOBIN 14.3 13.2 - 17.1 g/dL [facility] HEMATOCRIT 45.1 38.5 - 50.0 % [facility] MCV 91.3 80.0 - 100.0 fL [facility] MCH 28.9 27.0 - 33.0 pg [facility] MCHC 31.7(L) 32.0 - 36.0 g/dL [facility] Comment: For adults, a slight decrease in the calculated MCHC value (in the range of 30 to 32 g/dL) is most likely not clinically significant; however, it should be interpreted with caution in correlation with other red cell parameters and the patient's clinical condition. RDW 12.4 11.0 - 15.0 % [facility] PLATELETS 141 140 - 400 Thousand/ uL [facility] MPV 11.9 7.5 - 12.5 fL [facility] NEUTROPHIL ABSOLUTE 3,898 1,500 - 7,800 cells/uL [facility] LYMPHOCYTE ABSOLUTE 2,106 850 - 3,900 cells/uL [facility] MONOCYTE ABSOLUTE 397 200 - 950 cells/uL [facility] EOSINOPHIL ABSOLUTE 0(L) 15 - 500 cells/uL [facility] BASOPHILS ABSOLUTE 0 0 - 200 cells/uL [facility] NEUTROPHIL 60.9 % [facility] LYMPHOCYTES 32.9 % [facility] MONOCYTE 6.2 % [facility] EOSINOPHILS 0.0 % [facility] BASOPHILS 0.0 % [facility] Comment: Test Performed at: [place] [address] [place] [address] [facility] Blood 10/26/2024 2:30 PM CDT 10/26/2024 11:00 PM CDT Janet Desai MD HEMATOLOGY ORDERABLES Final Re sult [facility] [phone] [place] [address] [address] [place] [address] * SEDIMENTATION RATE (10/26/2024 2:30 PM CDT) Pathologist [facility] ESR (SEDIMENTATION RATE) 8 < OR = 15 mm/h [facility] Comment: Test Performed at: [employer] [place] [address] [address] [place] [address] [facility] Blood 10/26/2024 2:30 PM CDT 10/26/2024 11:00 PM CDT us Janet Desai MD HEMATOLOGY ORDERABLES Final Re sult [facility] [phone] [place] [address] [address] [address] * HENRIQUE SCREEN W/REFLEX (10/26/2024 2:30 PM CDT) Pathologist [facility] HENRIQUE SCREEN NEGATIVE NEGATIVE [facility] Comment: HENRIQUE IFA is a first line screen for detecting the presence of up to approximately 150 autoantibodies in various autoimmune diseases. A negative HENRIQUE IFA result suggests an HENRIQUE-associated autoimmune disease is not present at this time, and does not reflex further. If there is high clinical suspicion for Sjogren's syndrome, testing for anti-SS-A/Ro antibody should be considered. Anti-Marlene-1 antibody should be considered for clinically suspected inflammatory myopathies. AC-0: Negative International Consensus on HENRIQUE Patterns (https://doi.org/10.1515/jbew-5300-7189) For additional information, please refer to http://education.[employer]/faq/XLR076 (This link is being provided for informational/ educational purposes only.) Test Performed at: [facility] [address] Maribell Carver MD Blood 10/26/2024 2:30 PM CDT 10/26/2024 11:00 PM CDT us Janet Desai MD CHEMISTRY ORDERABLES Final Res ult Performing Organization Address [facility]/ZIP Co de Phone Number [facility] [phone] [facility] [address] [address] * FERRITIN (10/26/2024 2:30 PM CDT) FERRITIN 44 38 - 380 ng/mL [facility] Comment: Test Performed at: [facility] [address] Maribell Carver MD Blood 10/26/2024 2:30 PM CDT 10/26/2024 11:00 PM CDT us Janet Desai MD CHEMISTRY ORDERABLES Final Res ult [facility] [phone] [address] * COMPREHENSIVE METABOLIC PANEL (10/26/2024 2:30 PM CDT) GLUCOSE 90 65 - 99 mg/dL [facility] Comment: Fasting reference interval BUN 9 7 - 25 mg/dL [facility] CREATININE 1.11 0.60 - 1.26 mg/dL [facility] GFR 88 > OR = 60 mL/min/1. 73m2 [facility] BUN/CREAT RATIO SEE NOTE: 6 - 22 (calc) [facility] Comment: Not Reported: BUN and Creatinine are within reference range. SODIUM 139 135 - 146 mmol/L [facility] darius Newell POTASSIUM 4.3 3.5 - 5.3 mmol/L [facility] [facility] Yusuf darius Newell CHLORIDE 100 98 - 110 mmol/L [facility] Yusuf darius Newell CO2 31 20 - 32 mmol/L [facility] CALCIUM 9.9 8.6 - 10.3 mg/dL [facility] TOTAL PROTEIN 8.0 6.1 - 8.1 g/dL [facility] ALBUMIN 4.8 3.6 - 5.1 g/dL [facility] GLOBULIN 3.2 1.9 - 3.7 g/dL (calc) [facility] darius Newell ALBUMIN/GLOBULIN RATIO 1.5 1.0 - 2.5 (calc) [facility] d[facility] Newell BILIRUBIN TOTAL 0.5 0.2 - 1.2 mg/dL [facility] darius Newell ALKALINE PHOSPHATASE 57 36 - 130 U/L [facility] AST 20 10 - 40 U/L [facility] ALT 14 9 - 46 U/L [facility] Comment: Test Performed at: [facility] [address] [place] [address] Maribell Carver Blood 10/26/2024 2:30 PM CDT 10/26/2024 11:00 PM CDT us Janet Desai MD CHEMISTRY ORDERABLES Final Res ult [facility] [phone] [facility] [place] [address] [address] [place] [address] * (ABNORMAL) HEMOGLOBIN A1C (03/09/2024 11:14 AM BLENDING TECHNICIAN) HEMOGLOBIN A1C 5.8(H) <5.7 % of total Hgb [facility] Comment: For someone without known diabetes, a [...] children. ESTIMATED AVERAGE GLUCOSE (MG/DL) 120 mg/dL [facility] ESTIMATED AVERAGE GLUCOSE (MMOL/L) 6.6 mmol/L [facility] Comment: Test Performed at: [facility] [address] [place] [address] Maribell Meek Blood 03/09/2024 11:1 4 AM BLENDING TECHNICIAN 03/10/2024 12:44 AM BLENDING TECHNICIAN us Vanda Perdue [facility] CHEMISTRY ORDERABLES Final R esult [facility] [phone] [facility] [address] [place] [address] from Last 3 Months or Most Recently Relevant to Health Maintenance Insurance [facility] OPEN ACCESS ALLEGIANCE OPEN ACCESS [facility] OPEN ACCESS Care Teams Helicopter Pilot Relationship Specialty Start Date End Date Janet Desai MD [address] [place] [address] [place] [address] PCP - General Internal Medicine 03/08/24
--- OUTSIDE RECORDS SUMMARY | 2024-11-03 17:20 | XMS_ITS | Clinical Summary ---
Author Organization [facility] Address [address] [address] Phone Care Team Providers Care Box Machine Operator Name Role Phone Roland Knight APRN, CNP [...] Immunization (1 - 3-dose SCDM series) 08/23/2014 Influenza Immunization (#1) 2024 SARS-COV-2 Immunization (2 - 2024- season) 2024 06/25/2020 Respiratory Syncytial Virus (RSV) Immunization (Adult) [...] to complete this topic Insurance Care Teams Box Machine Operator Relationship Specialty Start Date End Date Roland Knight APRN, ASSISTANT FINANCIAL ACCOUNTANT [address] [place] [address] PCP - General Advanced Practice Nurse 06/14/23
--- OUTSIDE RECORDS SUMMARY | 2024-11-03 17:20 | XMS_ITS | Encounter Summary ---
Author Organization [facility] Address [address] [place] [address] Care Team Providers Care Gig Tender Name Role Phone Janet Desai MD Primary Care Provider [phone] Encounter Details Date Type Department Care Team (Late Contact Info) Description 11/02/2024 Results Follow-Up [facility] at [facility] [place] [address] [place] [address] Janet Desai MD [address] [place] [address] CBC WITH DIFFERENTIAL, VITAMIN B12 AND FOLATE, FERRITIN, Additional followed-up results: 5 Social History Tobacco Use Types Packs/Day Years Used Date Smoking Tobacco: Never Smokeless Tobacco: Never Alcohol Use Standard Drinks/Week Comments Yes 0 (1 standard drink = 0.6 oz pur e alcohol) Sex and Gender Information Value Date Recorded Sex Assigned at Not on file Legal Sex Male 9:32 AM BUTTON BUTTONHOLE MARKER Gender Identity Not on file Sexual Orientation Not on file documented as of this encounter Miscellaneous Notes * Result Encounter Note - Melva Fields - 11/02/2024 12:59 PM CDT Results were relayed and patient voiced understanding. documented in this encounter Plan of Treatment Upcoming Encounters Date Type Department Care Team (Late Contact Info) Description 11/06/2024 1:30 PM CDT Office Visit [email or web address] [address] [place] [phone] Vanda Perdue, ANP [address] [place] [address] 01/09/2025 3:45 PM BUTTON BUTTONHOLE MARKER Office Visit [facility] Oncology and Hematology - Neri [address] [facility] [address] [place] [address] True Wilson MD [address] [facility] [address] [place] [address] 05/01/2025 1:40 PM CDT Initial consult [facility] Gastroenterology [address] [facility] [address] [place] [address] Pinky Davila MD [address] [facility] [address] [place] [address] documented as of this encounter Visit Diagnoses Not on filedocumented in this encounter Additional Health Concerns Assessment Noted Time PHQ-9 Depression Total Score: 4 10/27/19 25 2:00 PM CDT documented as of this encounter Care Teams Gig Tender Relationship Specialty Start Date End Date Janet Desai MD [address] [place] [address] PCP - General Internal Medicine 03/08/24 documented as of this encounter
--- OUTSIDE RECORDS SUMMARY | 2024-11-03 17:20 | XMS_ITS | Encounter Summary ---
Author Organization [facility] Address [address] [place] [address] Care Team Providers Care Cement Mixer Name Role Phone Janet Desai MD Primary Care Provider [phone] Reason for Visit * Reason Onset Date Comments Additional symptom 11/02/2024 Encounter Details Date Type Department Care Team (Late st Contact Info) Description 11/02/2024 Telephone [facility] [employer] [place] [address] [address] Vanda Perdue, ANP [address] [place] [address] Additional symptom Social History Tobacco Use Types Packs/Day Years Used Date Smoking Tobacco: Never Smokeless Tobacco: Never Alcohol Use Standard Drinks/Week Comments Yes 0 (1 standard drink = 0.6 oz pur e alcohol) Sex and Gender Information Value Date Recorded Sex Assigned at Not on file Legal Sex Male 9:32 AM AIRPORT TOWER CONTROLLER Gender Identity Not on file Sexual Orientation Not on file documented as of this encounter Miscellaneous Notes * Telephone Encounter - Melva Fields - 11/02/2024 12:59 PM CDT Contacted the patient to let him know his lab results. He stated he is developing a new symptom andsometimes feels light headed after standing up from a kneeling position. Patient was advise to makesure and keep his upcoming appointment on 11/06/24. documented in this encounter Plan of Treatment Upcoming Encounters Date Type Department Care Team (Late st Contact Info) Description 11/06/2024 1:30 PM CDT Office Visit [facility] [place] [address] [facility] [place] [address] Vanda Perdue, ANP [address] [place] [address] 01/09/2025 3:45 PM AIRPORT TOWER CONTROLLER Office Visit [facility] Oncology and Hematology - Neri [address] [facility] [address] [place] [address] True Wilson MD [address] [facility] [address] [place] [address] 05/01/2025 1:40 PM CDT Initial consult [facility] Gastroenterology [address] [facility] [address] [place] [address] Pinky Davila MD [address] [facility] [address] [place] [address] documented as of this encounter Visit Diagnoses Not on filedocumented in this encounter Additional Health Concerns Assessment Noted Time PHQ-9 Depression Total Score: 4 10/27/19 2:00 PM CDT documented as of this encounter Care Teams Cement Mixer Relationship Specialty Start Date End Date Janet Desai MD [address] [place] [address] PCP - General Internal Medicine 03/08/24 documented as of this encounter
--- OUTSIDE RECORDS SUMMARY | 2024-11-03 17:20 | XMS_ITS | Encounter Summary ---
Author Organization [facility] Address [address] [place] [address] Care Team Providers Care Automobile Taillight Assembler Name Role Phone Janet Desai MD Primary Care Provider [phone] Encounter Details Date Type Department Care Team (Latest Contact Info) Description 03/16/2024 Results Follow-Up [facility] [place] [address] [place] [address] Vanda Perdue, RICHARD [address] [place] [address] CBC WITH DIFFERENTIAL Social History Tobacco Use Types Packs/Day Years Used Date Smoking Tobacco: Never Smokeless Tobacco: Never Alcohol Use Standard Drinks/Week Comments Yes 0 (1 standard drink = 0.6 oz pur e alcohol) Sex and Gender Information Value Date Recorded Sex Assigned at Not on file Legal Sex Male 9:32 AM ROTARY CUTTER Gender Identity Not on file Sexual Orientation Not on file documented as of this encounter Plan of Treatment Upcoming Encounters Date Type Department Care Team (Late st Contact Info) Description 11/06/2024 1:30 PM CDT Office Visit [facility] [place] [facility] [place] [address] [place] [address] Vanda Perdue, RICHARD [address] [facility] [address] [place] [address] 01/09/2025 3:45 PM ROTARY CUTTER Office Visit [facility] [place] Oncology and Hematology - Neri [address] [place] [address] [facility] 200 [place] [address] True Wilson MD [address] [facility] [address] [place] [address] 05/01/2025 1:40 PM CDT Initial consult [facility] [place] Gastroenterology [facility] [address] [facility] [address] [place] [address] Pinky Davila MD [address] [facility] [address] [place] [address] documented as of this encounter Visit Diagnoses Not on filedocumented in this encounter Care Teams Automobile Taillight Assembler Relationship Specialty Start Date End Date Janet Desai MD [address] [place] [phone] PCP - General Internal Medicine 03/08/24 documented as of this encounter
[2024-11-03 17:22] VITALS: BP 147/81; PULSE 76; RESP 16; TEMP 36.4; O2SAT 98
[2024-11-03 20:05] LABS: Hematocrit 43.6 % (42.0-52.0); Hemoglobin 14.6 g/dL (14.0-18.0); Immature Granulocyte Percent A 0.1 % (0-0.5); Lymphocytes Absolute Auto 2.20 K/mm3 (0.9-3.2); Mean Corpuscular HGB Conc 33.5 g/dl (32-36); Mean Corpuscular Hemoglobin 28.6 pg (26-34); Mean Corpuscular Volume 85.3 fl (80-100); Nucleated Red Blood Cells Absolute Auto 0.000 K/mm3 (0.0-0.012); Nucleated Red Blood Cells Perc 0.0 % (0.0-0.2); Platelet Count Result 170 k/mm3 (150-375); Red Blood Count 5.11 M/mm3 (4.6-6.20); White Blood Count 7.2 K/mm3 (4.5-10.0)
[2024-11-03 20:18] LABS: INR 1.1; Prothrombin Time 14.1 Seconds (11.1-14.7)
[2024-11-03 20:19] LABS: Partial Thromboplastin Time 32.8 Seconds (22.3-36.8)
[2024-11-03 20:27] LABS: Alanine Aminotransferase 20 U/L (6-50); Albumin Level 4.8 g/dL (3.5-5.1); Alkaline Phosphatase 56 U/L (38-126); Anion Gap 10 mmol/L (4-12); Aspartate Amino Transferase 33 U/L (17-59); Bilirubin,Total 0.5 mg/dL (0.2-1.3); Blood Urea Nitrogen 18 mg/dL (9-20); Calcium 9.0 mg/dL (8.4-10.2); Carbon Dioxide 28 mmol/L (22-30); Chloride 99 mmol/L (98-107); Estimated CRCL calculation 79 ml/min; Estimated Glomerular Filt Rate 56; Glucose 107 mg/dL (65-110); Lipase 21 U/L (23-300); Potassium 3.9 mmol/L (3.4-5.0); Sodium 137 mmol/L (137-145); Total Protein 8.9 g/dL (6.3-8.2)
[2024-11-03 20:35] LABS: Add Urine Microscopic? NO; Appearance Urine Clear (Clear); Glucose Urine UA Negative (Negative); Leukocyte Esterase Ur Negative LEU/UL (Negative); Nitrate Urine Negative (Negative); Specific Grav Ur 1.007 (1.001-1.035)
[2024-11-03] MEDS: SODIUM CHLORIDE 0.9% IV 1,000 ML 999 ML IV CONT (21:04)
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
[2024-11-03] MEDS: ONDANSETRON INJ 4 MG/2 ML VIAL IV PUSH (22:36)
[2024-11-03 22:37] VITALS: BP 123/71; PULSE 58; RESP 18; O2SAT 100
== END 2024-11-04 00:23 | disposition home or self-care (01) ==
PROVIDERS: Emergency Provider Physician Assistant; PCP Nurse Practitioner Adult Health
DX: R10.11 Right upper quadrant pain (principal); K74.00 Hepatic fibrosis, unspecified; I10 Essential (primary) hypertension
CPT/HCPCS: 36415; 74176; 80053; 81003; 83690; 85025; 85610; 85730; 96361; 96374; 99284; J2405; J7030

== ENCOUNTER 2024-11-14 14:15 | Outpatient (CLI) | payer OTHER, SELFPAY ==
--- OUTSIDE RECORDS SUMMARY | 2024-11-14 14:18 | XMS_ITS | Encounter Summary ---
Author Organization [facility] Address [address] [place] [address] Care Team Providers Care Oil Refiner Name Role Phone Janet Desai MD Primary Care Provider [phone] Encounter Details Date Type Department Care Team (Late Contact Info) Description 03/16/2024 Lab Requisition [facility] [address] [facility] [address] [place] [address] V[place], ANP [address] [facility] [address] [place] [address] Social History Tobacco Use Types Packs/Day Years Used Date Smoking Tobacco: Never Smokeless Tobacco: Never Alcohol Use Standard Drinks/Week Comments Yes 0 (1 standard drink = 0.6 oz pur e alcohol) Sex and Gender Information Value Date Recorded Sex Assigned at Not on file Legal 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 Gender Identity Not on file Sexual Orientation Not on file documented as of this encounter Plan of Treatment Upcoming Encounters Date Type Department Care Team (Late Contact Info) Description 11/16/2024 9:30 AM CDT Office Visit [facility] [address] [place] [address] Janet Desai MD [address] [place] [address] 11/19/2024 2:20 PM CDT Clinical Support [facility] [address] [place] [address] [place] [address] 11/22/2024 10:30 AM CDT Office Visit [facility] at [facility] [address] [place] [address] Vanda Perdue, ANP [address] [address] [facility] [address] [place] [address] 12/03/2024 2:00 PM CDT Office Visit [facility] at [facility] [address] [place] [address] Vanda Perdue, ANP [address] [address] [facility] [address] [place] [address] 01/09/2025 3:45 PM ROCKET ENGINE COMPONENT MECHANIC Office Visit [facility] Oncology and Hematology - Neri [address] [facility] [address] [place] [address] True Wilson MD [address] [facility] [address] [place] [address] 05/01/2025 1:40 PM CDT Initial consult [facility] Gastroenterology [facility] [address] [facility] [address] [place] [address] Pinky Davila MD [address] [facility] [address] [place] [address] documented as of this encounter Procedures Procedure Name Priority Date/Time Associated Diagnosis Comments D-DIMER Stat 03/16/2024 7:19 AM ROCKET ENGINE COMPONENT MECHANIC documented in this encounter Results * (ABNORMAL) D-DIMER (03/16/2024 7:19 AM ROCKET ENGINE COMPONENT MECHANIC) D-DIMER QUANT 0.95(H) <0.50 ug/mL FEU 03/16/2024 12:07 PM ROCKET ENGINE COMPONENT MECHANIC [facility] Blood Collection / Unknown 03/16/2024 7:19 AM ROCKET ENGINE COMPONENT MECHANIC 03/16/2024 11:28 AM ROCKET ENGINE COMPONENT MECHANIC Narrative [facility] - 03/16/2024 12:07 PM ROCKET ENGINE COMPONENT MECHANIC D-Dimer assay cutoff value for exclusion of DVT and/or PE is <0.50 ug/mL FEU. us Vanda Perdue ANP HEMATOLOGY ORDERABLES Final Result [facility] CLIA# [id number] [address] [facility] [place] [id number] documented in this encounter Visit Diagnoses Not on filedocumented in this encounter Care Teams Oil Refiner Relationship Specialty Start Date End Date Janet Desai MD [address] [place] [address] PCP - General Internal Medicine 03/08/24 documented as of this encounter
--- OUTSIDE RECORDS SUMMARY | 2024-11-14 14:18 | XMS_ITS | Encounter Summary ---
Author Organization [facility] Address [address] [place] [address] Care Team Providers Care Vulnerability Researcher Name Role Phone Janet Desai MD Primary Care Provider [phone] Encounter Details Date Type Department Care Team (Late Contact Info) Description 11/02/2024 Results Follow-Up [facility] [place] [address] [place] [address] Janet Desai MD [address] [place] [address] CBC WITH DIFFERENTIAL, VITAMIN B12 AND FOLATE, FERRITIN, Additional followed-up results: 5 Social History Tobacco Use Types Packs/Day Years Used Date Smoking Tobacco: Never Smokeless Tobacco: Never Alcohol Use Standard Drinks/Week Comments Yes 0 (1 standard drink = 0.6 oz pur e alcohol) Sex and Gender Information Value Date Recorded Sex Assigned at Not on file 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 documented in this encounter Plan of Treatment Upcoming Encounters Date Type Department Care Team (Late Contact Info) Description 11/16/2024 9:30 AM CDT Office Visit [facility] [place] [address] [place] [address] Janet Desai MD [address] [place] [id number] 11/19/2024 2:20 PM CDT Clinical Support [facility] [address] [place] [address] 11/22/2024 10:30 AM CDT Office Visit [facility] [address] [place] [address] Vanda Perdue, ANP [address] [address] [facility] [address] [place] [address] 12/03/2024 2:00 PM CDT Office Visit [facility] [address] [place] [id number] Vanda Perdue, ANP [address] [address] [facility] [address] [place] [address] 01/09/2025 3:45 PM TEST EQUIPMENT MECHANIC Office Visit [facility] Oncology and Hematology - [place] [address] [facility] [address] [place] [address] True Wilson MD [address] [facility] [address] [place] [address] 05/01/2025 1:40 PM CDT Initial consult [facility] Gastroenterology [address] [place] [address] Pinky Davila MD [address] [place] [address] documented as of this encounter Visit Diagnoses Not on filedocumented in this encounter Additional Health Concerns Assessment Noted Time PHQ-9 Depression Total Score: 4 10/27/19 25 2:00 PM CDT documented as of this encounter Care Teams Vulnerability Researcher Relationship Specialty Start Date End Date Janet Desai MD [address] [place] [address] PCP - General Internal Medicine 03/08/24 documented as of this encounter
--- OUTSIDE RECORDS SUMMARY | 2024-11-14 14:18 | XMS_ITS | Encounter Summary ---
Author Organization [facility] Address [address] [place] [address] Care Team Providers Care C4 Planner Name Role Phone Janet Desai MD Primary Care Provider [phone] Encounter Details Date Type Department Care Team (Latest Contact Info) Description 03/13/2024 Results Follow-Up [facility] [place] [address] [place] [address] Vanda Perdue ANP [address] [facility] [address] [place] [address] HEMOGLOBIN A1C, COMPREHENSIVE METABOLIC PANEL, CBC WITH DIFFERENTIAL, Additional followed-up results: 2 Social History Tobacco Use Types Packs/Day Years Used Date Smoking Tobacco: Never Smokeless Tobacco: Never Alcohol Use Standard Drinks/Week Comments Yes 0 (1 standard drink = 0.6 oz pur e alcohol) Sex and Gender Information Value Date Recorded Sex Assigned at Not on file Legal Sex Male 9:32 AM DOCTOR ASSISTANT Gender Identity Not on file Sexual Orientation Not on file documented as of this encounter Miscellaneous Notes * Result Encounter Note - Vanda Perdue ANP - 03/13/2024 7:20 AM DOCTOR ASSISTANT Contact patient regarding result. Urine did not show any infection. Digestive enzymes are normal, including liver and pancreas. Blood sugar in prediabetic range. Not cause of his illness. Will need to discuss in future. Infection levels are normal but platelet count is low. This is new finding. Recommend repeat CBC today or tomorrow See telephone encounter. OR ASSISTANT documented in this encounter Plan of Treatment Upcoming Encounters Date Type Department Care Team (Late st Contact Info) Description 11/16/2024 9:30 AM CDT Office Visit [facility] [place] [address] [place] [address] Janet Desai MD [address] [place] [id number] 11/19/2024 2:20 PM CDT Clinical Support [facility] [place] [address] [place] [address] 11/22/2024 10:30 AM CDT Office Visit [facility] at [facility] [address] [place] [phone] Vanda Perdue, ANP [address] [address] [facility] [address] [place] [address] 12/03/2024 2:00 PM CDT Office Visit [facility] [address] [place] [address] Vanda Perdue, ANP [address] [facility] [address] [facility] [address] [place] [address] 01/09/2025 3:45 PM DOCTOR ASSISTANT Office Visit [facility] Oncology and Hematology - Neri [address] [facility] [address] [place] [address] True Wilson MD [address] [facility] [address] [place] [address] 05/01/2025 1:40 PM CDT Initial consult [facility]astroenter[facility] [address] [facility] [address] [place] [address] Pinky Davila MD [address] [facility] [address] [place] [address] documented as of this encounter Visit Diagnoses Diagnosis Prediabetes- Primary Other abnormal glucose documented in this encounter Care Teams C4 Planner Relationship Specialty Start Date End Date Janet Desai MD [address] [place] [address] PCP - General Internal Medicine 03/08/24 documented as of this encounter
--- OUTSIDE RECORDS SUMMARY | 2024-11-14 14:18 | XMS_ITS | Clinical Summary ---
Author Organization [facility] Address [address] [place] [address] Care Team Providers Care Technical Publications Writer Name Role Phone Roland Knight NP Primary Care Provider [phone] Allergies Active Allergy Reactions Criticality Noted Date [...] 3 tablets (54 mg total) by mouth cw operator before breakfast Active metoprolol XL (TOPROL-XL) [...] Encounters Date Type Department Care Team Description 11/09/2024 8:23 PM CDT - 11/09/2024 10:50 PM CDT Emergency [facility] Emergency Department [address] [place] [phone] Ottoniel Malhotra MD TEENA (acute kidney injury) (Primary Dx); Chest tightness Discharge Disposition: Discharge to home or self care 10/14/2024 10:56 PM CDT - 10/15/2024 1:46 AM CDT Emergency [facility] Emergency Department [address] [place] [id number] Sky Camacho MD Anemia, unspecified type (Primary [...] making you feel afraid or unsafe? Denies 11/09/2024 Sex and Gender Information Value Date Recorded Sex Assigned at Not on file Legal Sex Male 4:57 AM [employer] Gender Identity Not on file Sexual Orientation Not on file Obstetrics History Last Filed Vital Signs Vital Sign Reading Time Taken Comments Blood Pressure 151/81 11/09/2024 7:05 PM CDT Pulse 70 11/09/2024 10:50 PM CDT Temperature 36.7 C (98.1 F) 11/09/2024 7:05 PM CDT Respiratory Rate 16 11/09/2024 10:50 PM CDT Oxygen Saturation 97% 11/09/2024 10:50 PM CDT Inhaled Oxygen Concentration - - Weight 104.3 kg (230 lb) 11/09/2024 7:05 PM CDT Height 182.9 cm (6') 11/09/2024 7:05 PM CDT Body Mass Index 31.19 11/09/2024 7:05 PM CDT Plan of Treatment Health Maintenance [...] Screening Completed 09/14/2022 Hepatitis C Screening Completed 11/06/2024 , 09/14/2022, 08/01/2012 Pneumococcal vaccine <65 Aged Out No longer eligible based on patient's age to complete this topic Procedures Procedure Name Priority Date/Time Associated Diagnosis Comments TROPONIN T HIGH-SENSITIVITY 2-HOUR Timed 11/09/2024 9:42 PM CDT D-DIMER, QUANTITATIVE STAT 11/09/2024 9:08 PM CDT DRUGS OF ABUSE SCREEN, URINE WITHOUT CONFIRMATION STAT 11/09/2024 8:27 PM CDT URINALYSIS AND REFLEX TO MICROSCOPIC AND CULTURE STAT 11/09/2024 8:27 PM CDT XR CHEST 1 VIEW ED 11/09/2024 7:53 PM CDT EGFR STAT 11/09/2024 7:13 PM CDT DIFFERENTIAL AUTO STAT 11/09/2024 7:1 3 PM CDT TROPONIN T HIGH-SENSITIVITY SERIES (BASELINE, 2HR, 4HR, 6HR) STAT 11/09/2024 7:13 PM CDT PRO B-TYPE NATRIURETIC PEPTIDE STAT 11/09/2024 7:13 PM CDT CBC WITH AUTO DIFFERENTIAL STAT 11/09/2024 7:13 PM CDT COMPREHENSIVE METABOLIC PANEL STAT 11/09/2024 7:13 PM CDT INFLUENZA A/B, RSV, AND COVID-19 PCR STAT [...] Maintenance Results * Troponin T high-sensitivity 2-hour (11/09/2024 9:42 PM CDT) Trop T hs <6 <=22 ng/L [facility] ([place]) Comment: Interpretive Data For further hscTnT resources including the diagnostic algorithm and an aid in interpretation, copy and paste this link: https://nrl.testcatalog.org/show/hsTrop Current Interpretive Data last revised 2019. Trop T hs delta 0 ng/L [facility] ([place]) Trop T hs interp Insignificant [facility] ([place]) Blood 11/09/2024 9:42 PM CDT 11/09/2024 9:43 PM CDT Ottoniel Malhotra MD LAB BLOOD ORDERABLES Final R esult [facility] ([place]) 1 [facility] [place] [address] * D-dimer, quantitative (11/09/2024 9:08 PM CDT) D-Dimer <215 <=499 ng/mL FEU [facility] ([place]) Comment: Interpretive data FDA approved the D-dimer, [...] data was last revised on 2019. Blood 11/09/2024 9:08 PM CDT 11/09/2024 10:12 PM CDT us Ottoniel Malhotra MD LAB BLOOD ORDERABLES Final R esult [facility] ([place]) [facility] [place] [address] * Urinalysis reflex to microscopic and culture Urine (11/09/2024 8:27 PM CDT) Color, ur Straw Yellow Clarity, ur Clear Clear [facility] ([place]) Specific gravity, ur 1.007 1.003 - 1.030 [facility] ([place]) pH, urine 6.0 [facility] ([place]) Comment: Interpretive Data U rine pH is affected by diet, medications, systemic acid-base disturbances, and renal tubular function. pH may affect urinary stone formation. For example, urine pH below 6.0 may help reduce the tendency for calcium phosphate stones and pH greater than 6.0 may reduce the tendency for uric acid stone formation. Source: [facility] Current Interpretive Data was last revised on [...] [facility] ([place]) Leukocyte esterase, ur Negative Negative [facility] ([place]) UA reflex comment Reflex conditions for microscopic UA and culture not met. [facility] ([place]) Urine 11/09/2024 8:27 PM CDT 11/09/2024 8:36 PM CDT Ottoniel Malhotra MD LAB MICROBIOLOGY - GENERAL O RDERABLES Final Result [facility] ([place]) [facility] [place] [address] * (ABNORMAL) Drugs of Abuse Screen, Urine without Confirmation (11/09/2024 8:27 PM CDT) Amphetamine, ur Screen Positive, presumptive (A) CutOff 500ng/mL [facility] ([place]) Comment: Interpretive Data - Amphetamines: Samples containing greater than 500 ng/mL d-methamphetamine or other cross-reacting amphetamine compounds are reported as positive. Amphetamine immunoassays are subject to significant false positive rates due to cross-reactivity of non-amphetamine drugs. Confirmatory testing required for definitive results. Current Interpretive Data was last reviewed 2022. Barbiturates, ur Not Detected CutOff 200ng/mL [facility] ([place]) Comment: Interpretive Data - Barbiturates: Samples containing greater than 200 ng/mL secobarbital or other cross-reacting barbiturate compounds are reported as positive. False positive and false negative results are possible. Confirmatory testing required for definitive results. Current Interpretive Data was last reviewed 2022. Benzodiazepines, ur Not Detected CutOff 100ng/mL [facility] ([place]) Comment: Interpretive Data - Benzodiazepines: Samples containing greater than 100 ng/mL nordiazepam or other cross-reacting compounds are reported as positive. False positive and false negative results are possible. Confirmatory testing required for definitive results. Current Interpretive Data was last reviewed 2022. Cannabinoids, ur Not Detected CutOff 50 ng/mL [facility] ([place]) Comment: Interpretive Data - Cannabinoids: Samples containing greater than 50 ng/mL delta-9 THC -COOH or other cross- reacting compounds are reported as positive. False positive and false negative results are possible. Confirmatory testing required for definitive results. Current Interpretive Data was last reviewed 2022. Cocaine, ur Not Detected CutOff 150ng/mL [facility] ([place]) Comment: Interpretive Data - Cocaine: Samples containing greater than 150 ng/mL benzoylecgonine or other cross- reacting compounds are reported as positive. False positive and false negative results are possible. Confirmatory testing required for definitive results. Current Interpretive Data was last reviewed 2022. Fentanyl, Ur Not Detected CutOff 5 ng/mL [facility] ([place]) Comment: Interpretive Data - Fentanyl: Samples containing greater than 5 ng/mL norfentanyl, fentanyl, or other cross-reacting fentanyl compounds are reported as positive. False positive and false negative results are possible. Confirmatory testing required for definitive results. Current Interpretive Data was last reviewed 2023. Methadone, ur Not Detected CutOff 300ng/mL [facility] ([place]) Comment: Interpretive Data - Methadone: Samples containing greater than 300 ng/mL d,l-methadone or other cross-reacting compounds are reported as positive. False positive and false negative results are possible. Confirmatory testing required for definitive results. Current Interpretive Data was last reviewed 2022. Opiates, ur Not Detected CutOff 300ng/mL [facility] ([place]) Comment: Interpretive Data - Opiates: Samples containing greater than 300 ng/mL morphine or other cross-reacting compounds are reported as positive. False positive and false negative results are possible. Confirmatory testing required for definitive results. Current Interpretive Data was last reviewed 2022. Oxycodone, ur NOT DETECTED CutOff 100ng/mL [facility] ([place]) Comment: Interpretive Data - Oxycodone: Samples containing greater than 100 ng/mL oxycodone or other cross-reacting compounds are reported as positive. False positive and false negative results are possible. Confirmatory testing required for definitive results. Current Interpretive Data was last reviewed 2022. Phencyclidine, ur Not Detected CutOff 25 ng/mL [facility] ([place]) Comment: Interpretive Data - Phencyclidine: Samples containing greater than 25 ng/mL phencyclidine or other cross-reacting compounds are reported as positive. False positive and false negative results are possible. Confirmatory testing required for definitive results. Current Interpretive Data was last reviewed 2022. Urine Creatinine 69 mg/dL [facility] ([place]) Comment: Interpretive Data Urine Creatinine: < 10 mg/dL is extremely dilute = or > 10 but < 20 mg/dL is dilute = or > 20 mg/dL is normal Current Interpretive Data was last revised on 2017. Urine 11/09/2024 8:27 PM CDT 11/09/2024 8:36 PM CDT Narrative [facility] ([place]) - 11/09/2024 9:10 PM CDT Drug of Abuse screening is performed by immunoassay for medical purposes only. This is not to be used for Pain Management purposes. us Ottoniel Malhotra MD LAB URINE ORDERABLES Final R esult [facility] ([place]) 1 [facility] [place] [address] * XR Chest 1 Vw Portable (11/09/2024 7:53 PM CDT) Anatomical Region Laterality Modality Body, Chest N/A Computed Radiogr aphy 11/09/2024 8:00 PM CDT Narrative 11/09/2024 8:01 PM CDT EXAM DESCRIPTION: XR CHEST 1 VIEW REASON FOR STUDY: Shortness of breath Pt states he has Hx of Hypertension and his PCP changed his medication 2 days ago and that's when he started feeing bad PCP stopped lisinopril and started pt on 'IRBESARTAN'. TECHNIQUE: 1 radiographic view(s) of the chest. COMPARISON: 05/26/2024 FINDINGS: LUNGS: No focal opacity, pleural effusion, or pneumothorax. HEART/MEDIASTINUM: Cardiac silhouette normal in size. Mediastinal and hilar contours appear normal. LINES/TUBES: None. BONES: No acute osseous abnormality. IMPRESSION: No acute cardiopulmonary abnormality. THIS IS AN ELECTRONICALLY VERIFIED FINAL REPORT 11/09/2024 8:01 PM - Electronically signed by Adis Rivas M.D. MM: MM Report ID: [id number] Reading Location: [id number] Procedure Note Adis Rivas MD - 11/09/2024 EXAM DESCRIPTION: XR CHEST 1 VIEW REASON FOR STUDY: Shortness of breath Pt states he has Hx of Hypertension and his PCP changed his medication 2days ago and that's when he started feeing bad PCP stopped lisinopril andstarted pt on 'IRBESARTAN'. TECHNIQUE: 1 radiographic view(s) of the chest. COMPARISON: 05/26/2024 FINDINGS: LUNGS: No focal opacity, pleural effusion, or pneumothorax. HEART/MEDIASTINUM: Cardiac silhouette normal in size. Mediastinal andhilar contours appear normal. LINES/TUBES: None. BONES: No acute osseous abnormality. IMPRESSION: No acute cardiopulmonary abnormality. THIS IS AN ELECTRONICALLY VERIFIED FINAL REPORT 11/09/2024 8:01 PM - Electronically signed by Adis Rivas M.D. MM: MM Report ID: [id number] Reading Location: [place] [address] Ottoniel Malhotra MD IMG XR PROCEDURES Final Resu lt * Troponin T high-sensitivity series (baseline, 2hr, 4hr, 6hr) (11/09/2024 7:13 PM CDT) Trop T hs <6 <=22 ng/L [facility] ([place]) Comment: Interpretive Data For further hscTnT resources including the diagnostic algorithm and an aid in interpretation, copy and paste this link: https://nrl.testcatalog.org/show/hsTrop Current Interpretive Data last revised 2019. Blood 11/09/2024 7:13 PM CDT 11/09/2024 7:24 PM CDT Ottoniel Malhotra MD LAB BLOOD ORDERABLES Final R esult [facility] ([place]) 1 [facility] [place] [address] * eGFR (11/09/2024 7:13 PM CDT) eGFR 71 >=60 mL/min/1. 73 m2 Comment: Interpretive Data [...] interpretive data was last reviewed 2020. Blood 11/09/2024 7:13 PM CDT 11/09/2024 7:24 PM CDT us Ottoniel Malhotra MD LAB BLOOD ORDERABLES Final R esult [facility] ([place]) 1 [facility] [place] [address] * Differential, auto (11/09/2024 7:13 PM CDT) Neutrophil abs 3.91 1.50 - 6.50 K/cumm Imm gran abs 0.02 0.00 - 0.10 K/cumm [facility] ([place]) Lymphocyte abs 2.57 0.80 - 3.30 K/cumm [facility] ([place]) Monocyte abs 0.50 0.20 - 0.80 K/cumm [facility] ([place]) Eosinophil abs 0.00 0.00 - 0.50 K/cumm [facility] ([place]) Basophil abs 0.00 0.00 - 0.10 K/cumm [facility] ([place]) Neutrophil pct 55.9 % [facility] ([place]) Comment: Interpretive [...] was last revised on 2017. Lymphocyte pct 36.7 % [facility] ([place]) Comment: Interpretive Data Percent cell count reference ranges are not reported, since discordance with absolute values may lead to misinterpretation of CBC data. Current Interpretive Data was last revised on 2017. Monocyte pct 7.1 % [facility] ([place]) Comment: Interpretive Data Percent cell count reference ranges are not reported, since discordance with absolute values may lead to misinterpretation of CBC data. Current Interpretive Data was last revised on 2017. Eosinophil pct 0.0 % [facility] ([place]) Comment: Interpretive Data Percent cell count reference ranges are not reported, since discordance with absolute values may lead to misinterpretation of CBC data. Current Interpretive Data was last revised on 2017. Basophil pct 0.0 % [facility] ([place]) Comment: Interpretive Data Percent cell count reference ranges are not reported, since discordance with absolute values may lead to misinterpretation of CBC data. Current Interpretive Data was last revised on 2017. Blood 11/09/2024 7:13 PM CDT 11/09/2024 7:24 PM CDT us Ottoniel Malhotra MD LAB BLOOD ORDERABLES Final R esult [facility] ([place]) 1 [facility] [place] [address] * Pro B-type natriuretic peptide (11/09/2024 7:13 PM CDT) NT-proBNP 47 <=300 pg/mL [facility] ([place]) Comment: Interpretive Comments: A. Dyspnea in Acute [...] Eur Heart J. 2006:27:330-337. 2. Messi RW, Jolley AM. J. AM Silvia Cardiol: Cardiovasc Imag. 2009;2: 216- 225. Interpretive Data Last Revised Date: 2017. Blood 11/09/2024 7:13 PM CDT 11/09/2024 7:24 PM CDT Ottoniel Malhotra MD LAB BLOOD ORDERABLES Final R esult [facility] ([place]) 1 [facility] [place] [address] * CBC with auto differential (11/09/2024 7:13 PM CDT) WBC 7.00 3.80 - 9.90 K/cumm Hgb 13.7 13.0 - 17.5 g/dL [facility] ([place]) Hct 40.1 38.9 - 50.3 % [facility] ([place]) Plt 180 150 - 400 K/cumm [facility] ([place]) MPV 10.5 9.1 - 12.3 fL [facility] RBC 4.72 4.30 - 5.80 M/cumm [facility] ([place]) MCV 85.0 81.3 - 96.4 fL [facility] ([place]) MCH 29.0 27.1 - 33.3 pg [facility] ([place]) MCHC 34.2 32.3 - 35.7 g/dL [facility] ([place]) RDW CV 12.1 11.1 - 14.9 % [facility] ([place]) RDW SD 37.3 35.7 - 48.1 fL [facility]) NRBC abs 0.00 0.00 - 0.01 K/cumm [facility] ([place]) Blood 11/09/2024 7:13 PM CDT 11/09/2024 7:24 PM CDT Ottoniel Malhotra MD LAB BLOOD ORDERABLES Final R esult [facility] ([place]) 1 [facility] Department of Laboratories [place] [id number] * (ABNORMAL) Comprehensive metabolic panel (11/09/2024 7:13 PM CDT) Sodium 138 135 - 145 mmol/L [facility] ([place]) Potassium, pl 4.2 3.3 - 4.9 mmol/L [facility]) Chloride 100 97 - 110 mmol/L [facility]) CO2 25 22 - 32 mmol/L [facility] ([place] Anion gap 13 2 - 15 mmol/L [facility] ([place]) BUN 14 6 - 25 mg/dL [facility] ([place]) Creatinine 1.32(H) 0.80 - 1.30 mg/dL [facility] ([place]) Glucose 102 70 - 199 mg/dL [facility] ([place]) Comment: Interpretive Data Fasting glucose [...] interpretive data was last revised 2022. Calcium 9.4 8.5 - 10.3 mg/dL [facility] ([place]) Bilirubin, total 0.4 0.1 - 1.2 mg/dL [facility] ([place]) Protein, pl 7.7 6.5 - 8.5 g/dL [facility] ([place]) Albumin 4.8 3.5 - 5.0 g/dL [facility] ([place]) Alk phos 59 40 - 130 Units/L [facility] ([place]) ALT 18 7 - 55 Units/L [facility] ([place]) AST 26 10 - 50 Units/L [facility] ([place]) Blood 11/09/2024 7:13 PM CDT 11/09/2024 7:24 PM CDT us Ottoniel Malhotra MD LAB BLOOD ORDERABLES Final R esult [facility] ([place]) [facility] [place] [address] * Influenza A/B, RSV, and COVID-19 PCR Nasopharyngeal (10/15/2024 12:31 AM CDT) COVID-19 RNA Negative Negative Influenza A RNA Negative Negative [facility] ([place]) Influenza B RNA Negative Negative [facility] ([place]) RSV RNA Negative Negative [facility] ([place]) Comment: Interpretive data: Testing performed by [facility]. This test is performed using the [employer] Xpert Xpress CoV-2/Flu/RSV plus assay. This is a multiplex, real- time reverse transcriptase PCR assay intended for the qualitative detection of nucleic acid from SARS-CoV-2, influenza A, influenza B, and respiratory syncytial virus. This assay has been cleared by the [place] Food and Drug administration. The performance characteristics have been verified by the [facility]. Results must be considered in the clinical context, and a negative result does not rule out infection. Interpretive Data last revised 2023 Nasopharyngeal 10/15/2024 12 :31 AM CDT 10/15/2024 12:33 AM CDT Narrative [facility] ([place]) - 10/15/2024 1:18 AM CDT Is the Patient experiencing symptoms consistent with COVID?->Yes Sky Camacho MD LAB MICROBIOLOGY - GENERAL OR DERABLES Final Result [facility] ([place]) [address] [place] [id number] * Sepsis Lactate w/ Reflex (10/14/2024 11:40 PM CDT) Sepsis Lactate 0.8 0.7 - 2.0 mmol/L Blood 10/14/2024 11:4 0 PM CDT 10/14/2024 11:48 PM CDT Sky Camacho MD LAB BLOOD ORDERABLES Final Re sult Performing Organization Address City/[facility]/ZIP Co de Phone Number [facility] ([place]) [address] [place] [phone] * (ABNORMAL) Urinalysis reflex to microscopic and culture Urine, bladder (10/14/2024 11:40 PM CDT) Color, ur Straw Yellow Clarity, ur Clear Clear [facility] ([place]) Specific gravity, ur 1.001(L) 1.003 - 1.030 [facility] ([place]) pH, urine 6.5 [facility] ([place]) Comment: Interpretive Data U rine pH is affected by diet, medications, systemic acid-base disturbances, and renal tubular function. pH may affect urinary stone formation. For example, urine pH below 6.0 may help reduce the tendency for calcium phosphate stones and pH greater than 6.0 may reduce the tendency for uric acid stone formation. Source: [facility] Current Interpretive Data was last revised on [...] [facility] ([place]) Leukocyte esterase, ur Negative Negative [facility] ([place]) UA reflex comment Reflex conditions for microscopic UA and culture not met. [facility] ([place]) Urine, bladder 10/14/2024 11 :40 PM CDT 10/14/2024 11:48 PM CDT Sky Camacho MD LAB MICROBIOLOGY - GENERAL OR DERABLES Final Result [facility] ([place]) [facility] [place] [address] * Blood culture Blood (10/14/2024 11:40 PM CDT) Report Final Report: No growth Comment:Testing performed by : [facility], [address] [facility] [place] [address] Blood 10/14/2024 11:4 0 PM CDT 10/15/2024 1:42 AM CDT Narrative [facility] ([place]) - 10/19/2024 7:00 AM CDT From [...] performance characteristics have been verified by the [facility]biology Laboratory. For questions about this culture, contact the Microbiology Laboratory at [phone]. Interpretive data was last revised on 23. us Sky Camacho MD LAB MICROBIOLOGY - GENERAL OR DERABLES Final Result [facility] ([place]) [facility] Department [place] [address] * Blood culture Blood (10/14/2024 11:40 PM CDT) Report Final Report: No growth Comment:Testing performed by : [facility], [address] [facility], [place]., [address] Blood 10/14/2024 11:4 0 PM CDT 10/15/2024 [...] performance characteristics have been verified by the [facility]biology Laboratory. For questions about this culture, contact the Microbiology Laboratory at [phone]. Interpretive data was last revised on 23. Sky Camacho MD LAB MICROBIOLOGY - GENERAL OR DERABLES Final Result Performing Organization Address City/[facility]/ZIP Co de Phone Number [facility] ([place]) [address] [facility] [place] [address] * aPTT (10/14/2024 11:40 PM CDT) aPTT 30 26 - 38 sec [facility] ([place]) Comment: Interpretive Data Heparin therapeutic range: 66.0 - 100.0 seconds. Range based on correlation with therapeutic heparin activity range of 0.3 - 0.7 Units/mL. Current interpretive data was last revised on 2022. Blood 10/14/2024 11:4 0 PM CDT 10/14/2024 11:48 PM CDT Sky Camacho MD LAB BLOOD ORDERABLES Final Re sult Performing Organization Address [facility] Co de Phone Number [facility] ([place]) [address] [facility] [place] [address] * Protime-INR (10/14/2024 11:40 PM CDT) PT 12.4 10.2 - 13.5 sec [facility] ([place]) INR 1.10 0.90 - 1.20 [facility] ([place]) Comment: Interpretive data Oral anticoagulant therapeutic ranges: Venous thromboembolism prophylaxis or treatment: 2.0-3.0 CARDIOLOGY Standard range: 2.0-3.0 High-intensity range: 2.5-3.5 Refer to indication-specific guidelines for appropriate target ranges for prosthetic heart valve replacement. Current interpretive data was last revised on 2019. Blood 10/14/2024 11:4 0 PM CDT 10/14/2024 11:48 PM CDT Sky Camacho MD LAB BLOOD ORDERABLES Final Re sult Performing Organization Address [facility]/ZIP Co de Phone Number [facility] [place] [address] [facility] [place] [address] * Magnesium (10/14/2024 11:40 PM CDT) Magnesium 1.6 1.4 - 2.5 mg/dL [facility] ([place]) Blood 10/14/2024 11:4 0 PM CDT 10/14/2024 11:48 PM CDT us Sky Camacho MD LAB BLOOD ORDERABLES Final Re sult Performing Organization Address [facility] Co de Phone Number [facility] ([place]) [address] [facility] [place] [address] * Ammonia (10/14/2024 11:40 PM CDT) Ammonia 23 <=50 mcmol/L [facility] ([place]) Blood 10/14/2024 11:4 0 PM CDT 10/14/2024 11:48 PM CDT Sky Camacho MD LAB BLOOD ORDERABLES Final Re sult Performing Organization Address [facility] Co de Phone Number [facility] [place] [address] [facility] [place] [address] * CT Chest Abdomen Pelvis WO Contrast (10/14/2024 11:33 PM CDT) Anatomical Region Laterality Modality Body N/A Computed Tomogra phy 10/14/2024 11:4 4 PM CDT Narrative 10/14/2024 11:53 PM CDT EXAM DESCRIPTION: CT CHEST ABDOMEN PELVIS WO CONTRAST REASON FOR STUDY: Left upper quadrant pain rule out pneumonia rule out splenic lesion diverticulitis left upper quadrant pain seen at [facility] discharge hOme to follow up with GI [...] Bonny Tian M.D. SN: SN Report ID: [id number] Reading Location: [id number] Procedure Note Bonny Tian MD - 10/14/2024 EXAM DESCRIPTION: CT CHEST ABDOMEN PELVIS WO CONTRAST REASON FOR STUDY: Left upper quadrant pain rule out pneumonia rule outsplenic lesion diverticulitis left upper quadrant pain seen at [facility] discharge hOme to followup with GI [...] by Bonny Tian M.D. SN: Report ID: [id number] Reading Location: [place] [address] Sky Camacho MD IMG CT PROCEDURES Final Resul t * eGFR [...] MD LAB BLOOD ORDERABLES Final Re sult [facility] ([place] [place] [address] * Differential, auto (10/14/2024 8:48 PM CDT) Neutrophil abs 5.36 1.50 - 6.50 K/cumm Imm gran abs 0.02 0.00 - 0.10 K/cumm [facility] ([place]) Lymphocyte abs 2.19 0.80 - 3.30 K/cumm [facility] ([place] Monocyte abs 0.46 0.20 - 0.80 K/cumm [facility] ([place] Eosinophil abs 0.01 0.00 - 0.50 K/cumm [facility] ([place] Basophil abs 0.01 0.00 - 0.10 K/cumm [facility] ([place] Neutrophil pct 66.7 % [facility] ([place] Comment: Interpretive Data Percent cell count reference ranges are not reported, since discordance with absolute values may lead to misinterpretation of CBC data. Current Interpretive Data was last revised on 2017. Imm gran pct 0.2 % [facility] ([place] Comment: Interpretive Data Percent cell count reference ranges are not reported, since discordance with absolute values may lead to misinterpretation of CBC data. Current Interpretive Data was last revised on 2017. Lymphocyte pct 27.2 % [facility] ([place] Comment: Interpretive [...] Eosinophil pct 0.1 % [facility] ([place]) Comment: Interpretive [...] MD LAB BLOOD ORDERABLES Final Re sult [facility] ([place] [place] [address] * (ABNORMAL) CBC with auto differential (10/14/2024 8:48 PM CDT) WBC 8.05 3.80 - 9.90 K/cumm Hgb 12.6(L) 13.0 - 17.5 g/dL [facility] ([place] Hct 36.3(L) 38.9 - 50.3 % [facility] ([place] Plt 123(L) 150 - 400 K/cumm [facility] Comment:Although platelets a re clumped on slide, platelet estimate appears adequate to increased in number. MPV 11.0 9.1 - 12.3 fL [facility] RBC 4.34 4.30 - 5.80 M/cumm [facility] MCV 83.6 81.3 - 96.4 fL [facility] [place] MCH 29.0 27.1 - 33.3 pg [facility] MCHC 34.7 32.3 - 35.7 g/dL [facility] RDW CV 11.9 11.1 - 14.9 % [facility] RDW SD 36.2 35.7 - 48.1 fL [facility] NRBC abs 0.00 0.00 - 0.01 K/cumm [facility] Morphologic Screen Results confirmed by manual morphology review. [facility] Blood 10/14/2024 8:48 PM CDT 10/14/2024 8:54 PM CDT us Sky Camacho MD LAB BLOOD ORDERABLES Final Re sult Performing Organization Address City/[facility]/ZIP Co de Phone Number [facility] ([place]) [facility] [place] [address] * Lipase (10/14/2024 8:48 PM CDT) Pathologist [facility] Lipase 18 10 - 99 Units/L [facility] ([place]) Blood 10/14/2024 8:48 PM CDT 10/14/2024 8:54 PM CDT us Sky Camacho MD LAB BLOOD ORDERABLES Final Re sult Performing Organization Address City/[facility]/ZIP Co de Phone Number [facility] ([place] [place] [address] * (ABNORMAL) Comprehensive metabolic panel (10/14/2024 8:48 PM CDT) Sodium 132(L) 135 - 145 mmol/L [facility] Potassium, pl 3.4 3.3 - 4.9 mmol/L [facility] Chloride 94(L) 97 - 110 mmol/L [facility] CO2 24 22 - 32 mmol/L [facility] ([place] Anion gap 14 2 - 15 mmol/L [facility] BUN 8 6 - 25 mg/dL [facility] Creatinine 0.88 0.80 - 1.30 [...] MD LAB BLOOD ORDERABLES Final Re sult [facility] [place] [address] * (ABNORMAL) Hepatitis C antibody (09/14/2022 8:25 AM CDT) Pathologist [facility] Hep C Ab Reactive( A) Nonreactive [facility] Comment: Interpretive Data Nonreactive: Antibodies to [...] - GENERAL ORDER THOMAS Final Result [facility] [address] [facility] Department [place] [address] from Last 3 Months or Most Recently Relevant to Health Maintenance Insurance [facility] [employer] [facility] Care Teams Technical Publications Writer Relationship Specialty Start Date End Date Roland Knight NP [address] [place] [address] [place] [address] PCP - General Pain Management 02/24/24
--- OUTSIDE RECORDS SUMMARY | 2024-11-14 14:18 | XMS_ITS | Clinical Summary ---
Author Organization [facility] [employer] [facility] Address [address] [place] [address] Care Team Providers Care Senior Sales Executive Name Role Phone Janet Desai MD Primary Care Provider [phone] Allergies Active Allergy Reactions Criticality Noted Date Comments Dextroamphetamine-Amphetamine Hypertension Medium 07/02/2024 Iodinated Contrast Media Anaphylaxis High 02/26/2020 Methylphenidate [...] mg by mouth daily. 01/03/20 24 Active citalopram (CeleXA) 20 mg tablet 05/25/19 25 Active Sublocade solution, extended rel syringe 06/19/19 25 Active dextroampheta mine-amphetam ine 37.5 mg capsule, ER triphasic 24 hr 06/28/19 25 Active pantoprazole (PROTONIX) 40 mg Tablet, Delayed Release (E.C.) Take 1 Tablet (40 mg) by mouth daily. 1 Tablet 07/13/19 25 Active Additional Information Patient not taking.Reported on 11/06/2024 dextroampheta mine/amphetam ine (MYDAYIS ORAL) Take by mouth. Activ e simethicone (GAS-X) 125 mg Capsule Take by mouth. 10/22/19 25 Active irbesartan (AVAPRO) 150 mg tablet Take 1 Tablet (150 mg) by mouth daily at bedtime. 30 Tablet 11/07/19 25 Active hyoscyamine 0.[address] 1 Tablet (0.125 mg) under tongue every 6 hours as needed for Spasm (abdominal pain.). 30 Tablet 11/09/19 25 Active hydroCHLOROth iazide 12.5 mg tablet Take 12.5 mg by mouth daily. 01/03/20 24 2024 Discontinued albuterol sulfate HFA 90 mcg/actuation aerosol inhaler Take 2 Puffs by inhalation. 02/23/19 25 2024 Discontinued lisinopriL (PRINIVIL) 20 mg tablet Take 20 mg by mouth 2 times daily. 05/12/19 25 2024 Discontinued(O ther) diazePAM (VALIUM) 5 mg tablet 06/26/19 25 2024 Discontinued doxycycline hyclate (VIBRAMYCIN) 100 mg capsuleIndica tions:Acute cough Take 1 Capsule (100 mg) by mouth 2 times daily. 20 Capsule 09/21/19 25 2024 Discontinued Active Problems Problem Noted Date Diagnosed Date Benign hypertension 11/07/2024 STACY (obstructive sleep apnea) - dx 06/[address] scan 07/2023 and 01/202403/15/2024 Prediabetes 03/13/2024 Bipolar disorder, unspecified 09/28/2023 History of palpitations 10/22/2022 Mixed anxiety and depressive disorder 10/22/2022 History of narcotic addiction 10/22/2022 Overview (03/08/2024): In remission since 2020. Seen at [facility] for addition and psych needs. History of ETOH abuse 10/22/2022 Overview (03/08/2024): In remission since 2020. Seen at [facility] for addition and psych needs. Vitamin D insufficiency 10/22/2022 Attention deficit disorder (ADD) in adult 2022 Hepatitis C 10/21/2022 Overview (03/08/2024): Current treatment per Dr. Simon. [facility]. Completed 01/2024. Panic attacks 02/26/2020 Resolved Problems Problem Noted Date Diagnosed Date Resolved Date Hepatitis C antibody test positive 10/21/2022 10/21/2022 Anxiety state 02/26/2020 10/22/2022 Precordial pain 02/26/2020 10/21/2022 Closed nondisp fracture of r ight medial malleolus with routine healing 10/21/2014 Encounters Date Type Department Care Team Description 11/12/2024 Telephone [facility] [employer] [place] [address] [place] [address] Dior Vallecillo MD Medication Reaction 11/08/2024 Telephone [facility] [place] [address] [place] [address] Vanda Perdue, RICHARD Follow Up 11/06/2024 1:30 PM CDT Office Visit [facility] [place] [address] [place] [address] Vanda Perdue, RICHARD RUQ abdominal pain (Primary Dx); Allergy to iodinated contrast; Hepatic fibrosis, stage 3; Splenomegaly mild on CT scan 07/2023 and 01/2024; History of hepatitis C; Throat pain; Benign hypertension 11/02/2024 Telephone [facility] [place] [address] [place] [address] Vanda Perdue, RICHARD Additional symptom 11/02/2024 Results Follow-Up [facility] at [place] [address] [place] [address] Janet Desai MD CBC WITH DIFFERENTIAL, VITAMIN B12 AND FOLATE, FERRITIN, Additional followed-up results: 5 10/26/2024 1:30 PM CDT Office Visit [facility] [employer] [place] [address] [place] [phone] Janet Desai MD Abnormal weight loss (Primary Dx); Normocytic anemia; Right upper quadrant abdominal pain; History of hepatitis C 10/09/2024 External Device Data STL ABSTRACTION Provider, Abstract 09/24/2024 Telephone [facility] - [address] [address] [place] [phone] True Wilson MD labs for appt 09/20/2024 3:00 PM CDT [facility] [employer] [place] [address] [place] [phone] Vanda Perdue ANP Acute cough (Primary Dx); [...] on file Legal Sex Male 9:32 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 OPERATOR SULFIDE Gender Identity Not on file Sexual Orientation Not on file Last Filed Vital Signs Vital Sign Reading Time Taken Comments Blood Pressure 140/72 11/06/2024 12:57 PM CDT Pulse 80 11/06/2024 12:57 PM CDT Temperature 36.8 C (98.3 F) 11/06/2024 12:57 PM CDT Respiratory Rate 19 11/06/2024 12:57 PM CDT Oxygen Saturation 96% 11/06/2024 12:57 PM CDT Inhaled Oxygen Concentration - - Weight 104.3 kg (230 lb) 11/06/2024 12:57 PM CDT Height 182.9 cm (6') 11/06/2024 12:57 PM CDT Body Mass Index 31.19 11/06/2024 12:57 PM CDT Plan of Treatment Upcoming Encounters Date Type Department Care Team (Late st Contact Info) Description 11/16/2024 9:30 AM CDT [facility] Visit [facility] [employer] [place] [address] [place] [phone] Janet Desai MD [address] [place] [phone] 11/19/2024 2:20 PM CDT Clinical Support [facility] [employer] [place] [address] [place] [phone] 11/22/2024 10:30 AM CDT Office Visit [facility] [employer] [facility] [address] [place] [phone] [place]P [address] Libia [address]a [address] [address] 12/03/2024 2:00 PM CDT Office Visit [facility] [employer] [place] [address] [place] [address] Vanda Perdue, ANP [address] [facility] Caldera [facility] [address] [place] [address] 01/09/2025 3:45 PM HEAD OPERATOR SULFIDE Office Visit [facility] - [place] [address] [facility] [address] [place] [phone] True Wilson MD [address] [facility] [address] [place] [address] 05/01/2025 1:40 PM CDT Initial consult [facility] [place] [address] [place] [address] Pinky Davila MD [address] - [place] [address] Health Maintenance Due Date Last Done Comments HEPATITIS B VACCINES (1 of 3 - 19+ 3-dose series) 08/23/2006 HPV VACCINES (1 - 3-dose SCDM series) 08/23/2014 Preventative Visit- Commercial 02/22/2024 INFLUENZA VACCINE (#1) 2024 Pre-Diabetes and Diabetes Screening 03/09/202703/09 DTAP/TDAP/TD VACCINES (3 - Td or Tdap) 10/21/2032, 10/20/2014 COLORECTAL SCREENING 10/18/2033 10/19/2023 Procedures Procedure Name Priority Date/Time Associated Diagnosis [...] loss HEMOGLOBIN A1C Routine 03/09/2024 11:14 AM HEAD OPERATOR SULFIDE [employer] from Last 3 Months or Most Recently Relevant to Health Maintenance Results * TSH REFLEXIVE (10/26/2024 2:30 PM CDT) TSH 1.90 0.40 - 4.50 mIU/L [facility] Comment: Test Performed at: [facility] [address] [place] [address] Maribell Carver Blood 10/26/2024 2:30 PM CDT 10/26/2024 11:00 PM CDT Janet Desai MD CHEMISTRY ORDERABLES Final Res ult [facility] [phone] [place] [address] [place] [address] * VITAMIN B12 AND FOLATE (10/26/2024 2:30 PM CDT) VITAMIN B12 358 200 - 1100 pg/mL [facility] Comment: Please Note: Although the reference [...] Borderline: 3.4-5.4 Normal: >5.4 Test Performed at: [facility] [address], [place] [address] Maribell Carver MD Blood 10/26/2024 2:30 PM CDT 10/26/2024 11:00 PM CDT us Janet Desai MD CHEMISTRY ORDERABLES Final Res ult Performing Organization Address [facility] Co de Phone Number [facility] [phone] [facility] [employer] [address] [place] [address] * IRON, TIBC, AND PERCENT SATURATION (10/26/2024 2:30 PM CDT) Pathologist [facility] IRON 98 50 - 180 mcg/dL [facility] TIBC 395 250 - 425 mcg/dL (calc) [facility] IRON % SATURATION 25 20 - 48 % (calc) [facility] Comment: Test Performed at: [facility] [employer] [address] Maribell Carver MD Blood 10/26/2024 2:30 PM CDT 10/26/2024 11:00 PM CDT Janet Desai MD CHEMISTRY ORDERABLES Final Res ult Performing Organization Address [facility] Co de Phone Number [facility] [phone] [facility] [address] [place] [address] * (ABNORMAL) CBC WITH DIFFERENTIAL (10/26/2024 2:30 PM CDT) [facility] WBC 6.4 3.8 - 10.8 Thousand/ uL [...] 3,898 1,500 - 7,800 cells/uL [facility] LYMPHOCYTE ABSOLUTE 2,106 850 - 3,900 cells/uL [facility] MONOCYTE ABSOLUTE 397 200 - 950 cells/uL [facility] EOSINOPHIL ABSOLUTE 0(L) 15 - 500 cells/uL [facility] BASOPHILS ABSOLUTE 0 0 - 200 cells/uL [facility] NEUTROPHIL 60.9 % [facility] LYMPHOCYTES 32.9 % [facility] MONOCYTE 6.2 % [facility] EOSINOPHILS 0.0 % [facility] BASOPHILS 0.0 % [facility] Comment: Test Performed at: [place] [address] [place] [address] [facility] Blood 10/26/2024 2:30 PM CDT 10/26/2024 11:00 PM CDT Janet Desai MD HEMATOLOGY ORDERABLES Final Re sult Performing Organization Address City/[facility]/ZIP Code Phone Number [facility] [phone] [place] [address] [place] [address] * SEDIMENTATION RATE (10/26/2024 2:30 PM CDT) ESR (SEDIMENTATION RATE) 8 < OR = 15 mm/h [facility] Comment: Test Performed at: [place] [address] [place] [address] [facility] Blood 10/26/2024 2:30 PM CDT 10/26/2024 11:00 PM CDT us Janet Desai MD HEMATOLOGY ORDERABLES Final Re sult [facility] [phone] [facility] [address] [place] [address] * HENRIQUE SCREEN W/REFLEX (10/26/2024 2:30 PM CDT) HENRIQUE SCREEN NEGATIVE NEGATIVE [facility] [place] Comment: HENRIQUE IFA is a first line [...] AC-0: Negative International Consensus on HENRIQUE Patterns (https://doi.org/10.1515/qizy-7906-6839) For additional information, please refer to http://education.[employer] [place] [employer]/faq/AAE083 (This link is being provided for informational/ educational purposes only.) Test Performed at: [employer] [address] [place] [address] Maribell Carver MD Blood 10/26/2024 2:30 PM CDT 10/26/2024 11:00 PM CDT us Janet Desai MD CHEMISTRY ORDERABLES Final Res ult [facility] [phone] [facility] [address] [facility] [place] [address] * FERRITIN (10/26/2024 2:30 PM CDT) Pathologist [facility] FERRITIN 44 38 - 380 ng/mL [facility] Comment: Test Performed at: [employer] [address] [place] [address] Maribell Carver MD Blood 10/26/2024 2:30 PM CDT 10/26/2024 11:00 PM CDT us Janet Desai MD CHEMISTRY ORDERABLES Final Res ult [facility] [phone] [facility] [address] [address] * COMPREHENSIVE METABOLIC PANEL (10/26/2024 2:30 PM CDT) GLUCOSE 90 65 - 99 mg/dL [facility] Comment: Fasting reference interval BUN 9 7 - 25 mg/dL [facility] [place] CREATININE 1.11 0.60 - 1.26 mg/dL [facility] GFR 88 > OR = 60 mL/min/1. 73m2 [facility] BUN/CREAT RATIO SEE NOTE: 6 - 22 (calc) [facility] Comment: Not Reported: BUN and Creatinine are within reference range. SODIUM 139 135 - 146 mmol/L [facility] POTASSIUM 4.3 3.5 - 5.3 mmol/L [facility] CHLORIDE 100 98 - 110 mmol/L [facility] CO2 31 20 - 32 mmol/L [facility] CALCIUM 9.9 8.6 - 10.3 mg/dL [facility] TOTAL PROTEIN 8.0 6.1 - 8.1 g/dL [facility] ALBUMIN 4.8 3.6 - 5.1 g/dL [facility] GLOBULIN 3.2 1.9 - 3.7 g/dL (calc) [facility] ALBUMIN/GLOBULIN RATIO 1.5 1.0 - 2.5 (calc) [facility] BILIRUBIN TOTAL 0.5 0.2 - 1.2 mg/dL [facility] ALKALINE PHOSPHATASE 57 36 - 130 U/L [facility] AST 20 10 - 40 U/L [facility] ALT 14 9 - 46 U/L [facility] Comment: Test Performed at: [facility] [address] [place] [address] Maribell Meek Vo Blood 10/26/2024 2:30 PM CDT 10/26/2024 11:00 PM CDT us Janet Desai MD CHEMISTRY ORDERABLES Final Res ult Performing Organization Address [facility]/ZIP Code Phone Number [facility] [phone] [place] [address] [address] [place] [phone] * (ABNORMAL) HEMOGLOBIN A1C (03/09/2024 11:14 AM HEAD OPERATOR SULFIDE) HEMOGLOBIN A1C 5.8(H) <5.7 % of total Hgb [facility] Comment: For someone without known diabetes, a [...] children. ESTIMATED AVERAGE GLUCOSE (MG/DL) 120 mg/dL [facility] ESTIMATED AVERAGE GLUCOSE (MMOL/L) 6.6 mmol/L [facility] Comment: Test Performed at: [place] [address] [address] [place] [address] Maribell Carver Blood 03/09/2024 11:1 4 AM HEAD OPERATOR SULFIDE 03/10/2024 12:44 AM HEAD OPERATOR SULFIDE Vanda RAMOS CHEMISTRY ORDERABLES Final R esult Performing Organization Address City/[facility]/ZIP Code Phone Number [facility] [phone] [place] [address] [address] [place] [phone] from Last 3 Months or Most Recently Relevant to Health Maintenance Insurance [employer] OPEN ACCESS [employer] OPEN ACCESS [facility] OPEN ACCESS Care Teams Senior Sales Executive Relationship Specialty Start Date End Date Janet Desai MD [address] [place] [phone] PCP - General Internal Medicine 03/08/24
--- OUTSIDE RECORDS SUMMARY | 2024-11-14 14:18 | XMS_ITS | Encounter Summary ---
Author Organization [facility] Address [address] [place] [address] Care Team Providers Care Director Statistical Programming Name Role Phone Janet Desai MD Primary Care Provider [phone] Encounter Details Date Type Department Care Team (Latest Contact Info) Description 03/16/2024 Results Follow-Up [facility] [employer] [place] [address] [place] [address] Vanda Perdue, ANP [address] [facility] [address] [place] [address] CBC WITH DIFFERENTIAL Social History Tobacco Use Types Packs/Day Years Used Date Smoking Tobacco: Never Smokeless Tobacco: Never Alcohol Use Standard Drinks/Week Comments Yes 0 (1 standard drink = 0.6 oz pur e alcohol) Sex and Gender Information Value Date Recorded Sex Assigned at Not on file Legal Sex Male 9:32 AM 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 Gender Identity Not on file Sexual Orientation Not on file documented as of this encounter Plan of Treatment Upcoming Encounters Date Type Department Care Team (Late st Contact Info) Description 11/16/2024 9:30 AM CDT Office Visit [facility] [employer] [place] [address] [place] [address] aJnet Desai MD [address] [place] [address] 11/19/2024 2:20 PM CDT Clinical Support [facility] [employer] [facility] [address] [place] [address] 11/22/2024 10:30 AM CDT Office Visit [facility] [address] [place] [address] Vanda Perdue, ANP [phone] [address] [facility] [address] [place] [phone] 12/03/2024 2:00 PM CDT Office Visit [facility] at [facility] [employer] [place] [address] [place] [id number] Vanda Perdue, ANP [address] [address] [facility] [address] [place] [phone] 01/09/2025 3:45 PM 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 KETTLE OPERATOR Office Visit [facility] Oncology and Hematology - [place] [address] [facility] [address] [place] [phone] True Wilson MD [address] [facility] [address] [place] [address] 05/01/2025 1:40 PM CDT Initial consult [facility] Gastroenterology [facility] [address] [facility] [facility] [address] [place] [address] Pinky Davila MD [address] [facility] [address] [place] [address] documented as of this encounter Visit Diagnoses Not on filedocumented in this encounter Care Teams Director Statistical Programming Relationship Specialty Start Date End Date Janet Desai MD [address] [place] [phone] PCP - General Internal Medicine 03/08/24 documented as of this encounter
--- OUTSIDE RECORDS SUMMARY | 2024-11-14 14:19 | XMS_ITS | Clinical Summary ---
Author Organization [facility] Address [address] [address] Phone Care Team Providers Care Box Feeder Name Role Phone Roland Knight APRN, CNP [...] complete this topic Insurance Care Teams Box Feeder Relationship Specialty Start Date End Date Roland Knight APRN, NUT SORTER [address] [place] [id number] PCP - General Advanced Practice Nurse 06/14/23
[2024-11-14 14:36] LABS: Hematocrit 42.4 % (42.0-52.0); Hemoglobin 14.4 g/dL (14.0-18.0); Immature Granulocyte Percent A 0.2 % (0-0.5); Lymphocytes Absolute Auto 1.68 K/mm3 (0.9-3.2); Mean Corpuscular HGB Conc 34.0 g/dl (32-36); Mean Corpuscular Hemoglobin 28.8 pg (26-34); Mean Corpuscular Volume 84.8 fl (80-100); Nucleated Red Blood Cells Absolute Auto 0.000 K/mm3 (0.0-0.012); Nucleated Red Blood Cells Perc 0.0 % (0.0-0.2); Platelet Count Result 199 k/mm3 (150-375); Red Blood Count 5.00 M/mm3 (4.6-6.20); White Blood Count 12.8 K/mm3 (4.5-10.0)
[2024-11-14 16:56] LABS: Alanine Aminotransferase 26 U/L (6-50); Albumin Level 4.6 g/dL (3.5-5.1); Alkaline Phosphatase 68 U/L (38-126); Anion Gap 9 mmol/L (4-12); Aspartate Amino Transferase 46 U/L (17-59); Bilirubin,Total 0.4 mg/dL (0.2-1.3); Blood Urea Nitrogen 14 mg/dL (9-20); Calcium 9.2 mg/dL (8.4-10.2); Carbon Dioxide 27 mmol/L (22-30); Chloride 102 mmol/L (98-107); Estimated Glomerular Filt Rate > 60; Glucose 116 mg/dL (65-110); Sodium 138 mmol/L (137-145); Total Protein 8.4 g/dL (6.3-8.2)
[2024-11-14 17:05] LABS: Potassium 4.2 mmol/L (3.4-5.0)
[2024-11-14 17:31] LABS: Thyroid Stimulating Hormone 0.977 uIU/mL (0.465-4.680)
[2024-11-14 18:07] LABS: Vitamin B12 285.0 pg/mL (239-931)
== END 2024-11-14 14:16 | disposition home or self-care (01) ==
PROVIDERS: PCP Nurse Practitioner Adult Health; Visit Provider Internal Medicine Hematology & Oncology
DX: D69.59 Other secondary thrombocytopenia (principal); R53.83 Other fatigue; D64.9 Anemia, unspecified
CPT/HCPCS: 36415; 80053; 82607; 82746; 84443; 85025